=== PATIENT | male | born 1935 | race Caucasian/White ===

== ENCOUNTER 2017-11-07 20:19 | Inpatient (IN) | payer MEDICARE, OTHER, SELFPAY ==
[2017-11-07 20:43] VITALS: BP 193/80; PULSE 66; RESP 16; TEMP 36.7; O2SAT 98; BMI 25.5
[2017-11-07 20:47] VITALS: PULSE 66
--- NOTE | 2017-11-07 20:51 | DI.RAD.S_ITS ---
PROCEDURE: XR HIP W PEL IF DONE RT 2V INDICATIONS: fall pain TECHNIQUE: AP pelvis with lateral view(s) of the right hip(s). COMPARISON: None. FINDINGS: Bones: There is an angulated fracture of the right femoral neck. No other fractures or dislocations. Soft tissues: The visualized bowel gas pattern is normal. No suspicious soft tissue calcifications. Surgical clips are present throughout the pelvis. IMPRESSION: Healed right femoral neck fracture. Dictated by: Rosa Isela Murphy M.D. on 11/07/2017 at 21:16 Approved by: Rosa Isela Murphy M.D. on 11/07/2017 at 21:17
--- NOTE | 2017-11-07 20:53 | ED.LOWEXIN ---
HPI - Extremity Injury (Lower) General Chief Complaint: Extremity Injury, Lower Stated Complaint: FALL RT HIP PAIN Time Seen by Provider: 11/07/17 20:46 Source: patient and family Mode of arrival: wheelchair Limitations: no limitations History of Present Illness HPI Narrative: Patient is an 82-year-old male who presents with right hip pain. He twisted and fell landing on his right hip. He is not able to weightbear at all. Family was able to get him into the car. No other injuries. No numbness no tingling. MD complaint: hip injury Onset (ago): hour(s) Related Data Home Medications Medication Instructions Recorded Confirmed aspirin 1 tab PO DAILY 11/07/17 11/07/17 atorvastatin 1 tab PO DAILY 11/07/17 11/07/17 docusate calcium 1 cap PO DAILY 11/07/17 11/07/17 docusate calcium [Stool Softener] 1 cap PO QPM 11/07/17 11/07/17 levothyroxine 1 tab PO DAILY 11/07/17 11/07/17 losartan 1 tab PO DAILY 11/07/17 11/07/17 metoprolol tartrate 1.5 tab PO BID 11/07/17 11/07/17 pregabalin [Lyrica] 1 cap PO TID 11/07/17 11/07/17 Allergies Allergy/AdvReac Type Severity Reaction Status Date / Time No Known Drug Allergies Allergy Verified 11/07/17 20:47 Review of Systems Review of Systems All systems reviewed & are unremarkable except as noted in HPI and below Constitutional Denies chills, Denies fever(s), Denies lethargy and Denies weakness Cardiovascular Denies chest pain, Denies irregular heart rhythm, Denies lightheadedness, Denies palpitations, Denies dyspnea, Denies dyspnea on exertion and Denies orthopnea Respiratory Denies cough, Denies dyspnea, Denies dyspnea on exertion and Denies wheezing Gastrointestinal Gastrointestinal: Denies abdominal pain, Denies change in bowel habits, Denies diarrhea, Denies nausea and Denies vomiting Genitourinary Comments: History there cancer has urostomy Musculoskeletal Reports as per HPI Neurologic Denies weakness Endocrine Denies palpitations Allergic/Immunologic Denies wheezing PFSH Medical History Bladder cancer (Acute) Coronary artery disease (Acute) H/O thyroidectomy (Acute) Hypertension (Acute) Hyponatremia (Acute) Hypothyroid (Acute) Kidney stones (Acute) Prostate cancer (Acute) Thyroid cancer (Acute) Surgical History H/O colectomy (Acute) History of appendectomy (Acute) History of urostomy (Acute) Social History household members: family Smoking Status: Never smoker alcohol intake: never substance use type: does not use Exam Initial Vital Signs Initial Vital Signs: Vital Signs Temperature 98.1 F 11/07/17 20:43 Pulse Rate 66 11/07/17 20:43 Respiratory Rate 16 11/07/17 20:43 Blood Pressure 193/80 H 11/07/17 20:43 Pulse Oximetry 98 11/07/17 20:43 Const General: cooperative Nutritional Appearance: well nourished Orientation: alert, awake and oriented x3 Neck Neck: normal visual inspection and full ROM Chest Chest: normal inspection of the chest Resp Effort & Inspection: normal respiratory effort Auscultation: clear to auscultation bilaterally, no rales, no rhonchi and no wheezes GI Palpation: soft, No firm, No guarding and No tender Percussion: normal to percussion Other: Urostomy bag present. Clear urine. Skin General: no rashes or lesions noted, No ecchymosis and No erythema Neuro General: alert, awake, oriented x3 and CN's II-XI intact bilaterally Extrem Right lower extremity: hip/thigh Details: tenderness and abnormal ROM Details: pain with passive ROM during; no swelling and no deformity Course Orders Ordered: ED Orders 11/07/17 20:51 XR hip w pel if done RT 2V Stat 11/07/17 21:20 Basic Metabolic Panel Stat Complete Blood Count AUTO DIFF Stat 11/07/17 23:00 Consult to Orthopedic Surgery Routine Consult to Physician Routine 11/08/17 10:00 Basic Metabolic Panel Stat Sodium Chloride (Normal Saline 0.9%) 1,000 mls @ 100 mls/hr IV CONT FRED Morphine Sulfate (Morphine) 2 mg IV Q4HR PRN PRN Reason: Pain, Moderate (4-6) Ondansetron HCl (Zofran) 4 mg IV Q4HR PRN PRN Reason: Nausea And Vomiting Discontinued Medications Morphine Sulfate (Morphine) 2 mg IV NOW ONE Stop: 11/07/17 20:52 Last Admin: 11/07/17 21:25 Dose: 2 mg Morphine Sulfate (Morphine) 2 mg IV NOW ONE Stop: 11/07/17 22:37 Last Admin: 11/07/17 22:43 Dose: 2 mg Ondansetron HCl (Zofran) 4 mg IV NOW ONE Stop: 11/07/17 20:52 Last Admin: 11/07/17 21:26 Dose: 4 mg Consultations Consultation #1: Dr. Dumont reviewed x ray. Admit to medicine. Will go to OR tomorrow Time: 21:15 Consultation #2: Dr. Melgar updated on symptoms test results accepts admission. Agrees with all small amount of IV fluids and recheck electrolytes in a.m. Time: 22:20 Vital Signs - 8 hr 11/07/17 20:43 11/07/17 20:47 11/07/17 22:25 Temperature 98.1 F Pulse Rate 66 60 Pulse Rate [Right Dorsalis Pedis] 66 Respiratory Rate 16 18 Blood Pressure 193/80 H Blood Pressure [Left Arm] 175/72 H Pulse Oximetry 98 93 11/07/17 22:45 Temperature 98.1 F Pulse Rate 65 Pulse Rate [Right Dorsalis Pedis] Respiratory Rate 18 Blood Pressure 168/88 H Blood Pressure [Left Arm] Pulse Oximetry 92 MDM - Extremity Injury (Lower) Medical Records Attestation: I reviewed the patient's medical records. Lab Data Attestation: I reviewed the patient's lab results. Result diagrams: 11/07/17 21:20 11/07/17 21:20 Lab Results 11/07/17 11/07/17 Range/Units 21:20 21:20 WBC 6.6 (4.5-11.0) X10^3/uL RBC 4.28 L (4.5-5.9) X10^6/uL Hgb 12.5 L (13.5-17.5) g/dL Hct 37.1 L (41-53) % MCV 86.7 (80-100) fL MCH 29.2 (26-34) PG MCHC 33.7 (30-36) % RDW 13.5 (11.6-14.8) % Plt Count 188 (150-400) X10^3/uL Neut % (Auto) 73.4 (50-75) % Lymph % (Auto) 11.7 L (25-40) % [place] % (Auto) 10.5 (3-14) % Eos % (Auto) 3.6 (2-4) % Baso % (Auto) 0.8 (0-2) % Neut # (Auto) 4900 (2586-5602) /uL Sodium 123 L (137-145) mmol/L Potassium 4.0 (3.4-5.1) mmol/L Chloride 85 L (98-107) mmol/L Carbon Dioxide 36 H (22-32) mmol/L BUN 12 (9-20) mg/dL Creatinine 1.00 (0.66-1.25) mg/dL Estimated GFR > 60.0 (>60) mL/min BUN/Creatinine Ratio 12.0 (6-22) Glucose 113 H (80-110) mg/dL Calcium 8.8 (8.4-10.2) mg/dL Imaging Data right hip x ray: Attestation: I personally reviewed and interpreted this imaging study as follows: My impression: Acute right femoral neck fracture Radiologist's impression: PROCEDURE: XR HIP W PEL IF DONE RT 2V INDICATIONS: fall pain TECHNIQUE: AP pelvis with lateral view(s) of the right hip(s). COMPARISON: None. FINDINGS: Bones: There is an angulated fracture of the right femoral neck. No other fractures or dislocations. Soft tissues: The visualized bowel gas pattern is normal. No suspicious soft tissue calcifications. Surgical clips are present throughout the pelvis. IMPRESSION: Healed right femoral neck fracture. Dictated by: Rosa Isela Murphy M.D. on 11/07/2017 at 21:16 MDM Narrative Medical decision making narrative: I have reviewed patient's x-ray so has Orthopedics. This is more likely an acute fracture. Patient just fell and not weight-bearing and has pain. He is chronically hyponatremic slightly worse than he was in 2016. Discharge Plan Departure Patient Disposition: Admitted As Inpatient Clinical Impression: Closed fracture of right hip, Chronic hyponatremia Discharge Date/Time: 11/07/17 22:44 Interventions: ED Discharge Assessment Last Done: 11/07/17 22:44 Admit Date/Time: 11/07/17 22:29 Admit Provider: Kailee Melgar
[2017-11-07] MEDS: MORPHINE 2 MG/ML INJ IV ×2 (21:25→22:43)
[2017-11-07] MEDS: ONDANSETRON 4 MG/2 ML INJ IV (21:26)
[2017-11-07 21:37] LABS: Add Manual Diff / Slide Review NO; Basophils Percent Auto 0.8 % (0-2); Eosinophils Percent Auto 3.6 % (2-4); Hematocrit 37.1 % (41-53); Hemoglobin 12.5 g/dL (13.5-17.5); Lymphocytes Percent Auto 11.7 % (25-40); Mean Corpuscular HGB Conc 33.7 % (30-36); Mean Corpuscular Hemoglobin 29.2 PG (26-34); Mean Corpuscular Volume 86.7 fL (80-100); Monocytes Percent Auto 10.5 % (3-14); Neutrophils Absolute Auto 4900 /uL (3000-5900); Neutrophils Percent Auto 73.4 % (50-75); Platelet Count 188 X10^3/uL (150-400); Red Blood Cell Count 4.28 X10^6/uL (4.5-5.9); Red Cell Distribution Width 13.5 % (11.6-14.8); White Blood Cell Count 6.6 X10^3/uL (4.5-11.0)
[2017-11-07 21:45] LABS: Blood Urea Nitrogen 12 mg/dL (9-20); Calcium 8.8 mg/dL (8.4-10.2); Carbon Dioxide 36 mmol/L (22-32); Chloride 85 mmol/L (98-107); Estimated Glomerular Filt Rate > 60.0 mL/min (>60); Glucose 113 mg/dL (80-110); HEMOLYSIS < 15 (0-50); Sodium 123 mmol/L (137-145)
[2017-11-07 22:25] VITALS: BP 175/72; PULSE 60; RESP 18; O2SAT 93
[2017-11-07 22:45] VITALS: BP 168/88; PULSE 65; RESP 18; TEMP 36.7; O2SAT 92
[2017-11-07 22:55] VITALS: BMI 25.5
[2017-11-07 23:45] VITALS: BP 147/63; PULSE 67; RESP 18; TEMP 36.4; O2SAT 94
[2017-11-08] VITALS (18 sets, daily range): BP systolic 100–138; BP diastolic 54–74; PULSE 65–88; RESP 10–18; TEMP 36.6–38.1; O2SAT 90–99; BMI 25.5
--- NOTE | 2017-11-08 | DI.RAD.S_ITS ---
PROCEDURE: XR PELVIS 1-2V INDICATIONS: post op right audi TECHNIQUE: 1 view of the lower pelvis acquired. COMPARISON: [facility], CR, XR HIP W PEL IF DONE RT 2V, 11/07/2017, 20:32. FINDINGS: Bones: Patient is status post right hip unipolar arthroplasty, with hardware components in expected positions. The hip joint appears congruent. The visualized bony structures appear intact. Soft tissues: Overlying postoperative changes are noted. Surgical clips noted over the lower pelvis. No suspicious soft tissue densities. IMPRESSION: Spica postsurgical change for right hip arthroplasty. Dictated by: Ijeoma Palacios MD, PhD on 11/08/2017 at 13:34 Approved by: Ijeoma Palacios MD, PhD on 11/08/2017 at 13:35
[2017-11-08] MEDS: SODIUM CHLORIDE 0.9% 1,000 ML 100 ML IV (00:44)
--- NOTE | 2017-11-08 03:21 | PC.NURSE ---
Addendum entered by Teresa Torres R.N. 11/08/17 05:10: Correction: 2,000mL urine total for shift. Original Note: Addendum entered by Teresa Torres R.N. 11/08/17 05:07: Pt reporting no pain when not moving around. Does not want any pain meds at this time. Pts urostomy bag put put 1300mL for the shift of clear yellow urine. His bag should be emptied frequently since he puts out so much in a short period of time where the bag was extremely full Original Note: Pt is AxOx3, VSS. No complaints of pain at this time. IVF running as ordered. Pt kept NPO. Pt's urostomy site is clean, moist, and pink; drainage bag attached which urine is clear and yellow. Able to make needs known. Will continue to monitor
--- NOTE | 2017-11-08 09:59 | P.HP_ITS ---
History of Present Illness Chief complaint: FALL RT HIP PAIN Patient History Medical History Bladder cancer (Acute) Coronary artery disease (Acute) H/O thyroidectomy (Acute) Hypertension (Acute) Hyponatremia (Acute) Hypothyroid (Acute) Kidney stones (Acute) Prostate cancer (Acute) Thyroid cancer (Acute) Surgical History H/O colectomy (Acute) History of appendectomy (Acute) History of urostomy (Acute) Family & Social History Family History: Reviewed 11/08/17 by Derek Dumont MD Social History: household members family Prior Living Arrangements House Safety & Behavioral: Feels Safe in Current No Environment Been Physically Hurt or No Threatened By a Person Suicidal Ideation Description None Suicide Plan Description No Plan Tobacco & Substance use: Smoking Status Never smoker alcohol intake never Substance Use Type does not use Meds Home Medications Medication Instructions Recorded Confirmed Type aspirin 1 tab PO DAILY 11/07/17 11/07/17 History atorvastatin 1 tab PO DAILY 11/07/17 11/07/17 History docusate calcium 1 cap PO DAILY 11/07/17 11/07/17 History docusate calcium [Stool Softener] 1 cap PO QPM 11/07/17 11/07/17 History levothyroxine 1 tab PO DAILY 11/07/17 11/07/17 History losartan 1 tab PO DAILY 11/07/17 11/07/17 History metoprolol tartrate 1.5 tab PO BID 11/07/17 11/07/17 History pregabalin [Lyrica] 1 cap PO TID 11/07/17 11/07/17 History Allergies Allergy/AdvReac Type Severity Reaction Status Date / Time No Known Drug Allergies Allergy Verified 11/07/17 20:47 Review of Systems Genitourinary Comments: History of bladder cancer with cystectomy and urostomy bag. Exam Vital Signs (past 8 hours): - 11/08/17 05:10 11/08/17 08:11 Temperature 98.8 F 98.3 F Pulse Rate 88 85 Respiratory Rate 18 16 Blood Pressure 137/73 H 138/74 H Pulse Oximetry 96 90 L Oxygen Delivery Method Room Air Oxygen Flow Rate 0 Narrative Exam Narrative: Healthy-appearing elderly male alert orient conversant and in no obvious distress. HEENT normocephalic atraumatic. Lungs clear to auscultation. Heart regular rate and rhythm. Abdomen benign. Lower extremity is benign with the exception of pain with movement of the right lower extremity and tenderness over the greater trochanter. Sensation and circulation are intact distally Const General: healthy appearing and comfortable Nutritional Appearance: average body habitus Orientation: alert, awake and oriented x3 Objective Labs Result Diagrams: 11/07/17 21:20 11/07/17 21:20 Labs: Laboratory Results - last 24 hr 11/07/17 11/07/17 21:20 21:20 WBC 6.6 RBC 4.28 L Hgb 12.5 L Hct 37.1 L MCV 86.7 MCH 29.2 MCHC 33.7 RDW 13.5 Plt Count 188 Neut % (Auto) 73.4 Lymph % (Auto) 11.[address] [place] % (Auto) 10.5 Eos % (Auto) 3.6 Baso % (Auto) 0.8 Neut # (Auto) 4900 Sodium 123 L Potassium 4.0 Chloride 85 L Carbon Dioxide 36 H BUN 12 Creatinine 1.00 Estimated GFR > 60.0 BUN/Creatinine Ratio 12.0 Glucose 113 H Calcium 8.8 Assessment & Plan Plan: Assessment/Plan Narrative: Displaced right femoral neck fracture discussed the nature condition, treatment options risks and benefits. Patient understands and gives informed consent to proceed with surgical treatment consisting of endoprosthetic replacement of the right hip Quality VTE Deep Vein Thrombosis/Pulmonary Embolism Present on Admission: No
--- NOTE | 2017-11-08 10:00 | PM.PREOP ---
Pre-operative Note Interval Note Pre-op Check: Yes History & Physical Reviewed by Physician and Yes History & Physical exam performed today by Physician Changes: No
[2017-11-08] MEDS: MORPHINE 2 MG/ML INJ IV (10:02)
[2017-11-08 10:21] LABS: BUN Creatinine Ratio 13.3 (6-22); Blood Urea Nitrogen 12 mg/dL (9-20); Calcium 8.8 mg/dL (8.4-10.2); Carbon Dioxide 34 mmol/L (22-32); Chloride 92 mmol/L (98-107); Estimated Glomerular Filt Rate > 60.0 mL/min (>60); Glucose 104 mg/dL (80-110); HEMOLYSIS < 15 (0-50); Potassium 4.6 mmol/L (3.4-5.1); Sodium 130 mmol/L (137-145)
--- NOTE | 2017-11-08 10:25 | PM.HP.1 ---
History of Present Illness Date Patient Seen: 11/08/17 Time Patient Seen: 10:00 Chief complaint: FALL RT HIP PAIN Narrative: 82-year-old man who was brought to the [facility] Emergency room last night after a fall. He tripped on a step when he was trying to come up to the deck. He rolled and landed on his right hip. He was having right-sided hip pain. He was brought to the [facility] Emergency Room. X-ray of the right hip revealed angulated fracture of the right femoral neck. He was admitted to the medicine floor for right femoral neck fracture. Patient History Medical History Bladder cancer (Acute) Coronary artery disease (Acute) H/O thyroidectomy (Acute) Hypertension (Acute) Hyponatremia (Acute) Hypothyroid (Acute) Kidney stones (Acute) Prostate cancer (Acute) Thyroid cancer (Acute) Surgical History H/O colectomy (Acute) History of appendectomy (Acute) History of urostomy (Acute) Comment: Prostatectomy for prostate cancer Cystectomy for bladder cancer Family & Social History Family History: Reviewed 11/08/17 by Derek Dumont MD Social History: household members family Prior Living Arrangements House Safety & Behavioral: Feels Safe in Current No Environment Been Physically Hurt or No Threatened By a Person Suicidal Ideation Description None Suicide Plan Description No Plan Tobacco & Substance use: Smoking Status Never smoker alcohol intake never Substance Use Type does not use Comment: He is . He lives with his . Denies alcohol drinking or cigarette smoking. Meds Home Medications Medication Instructions Recorded Confirmed Type aspirin 1 tab PO DAILY 11/07/17 11/07/17 History atorvastatin 1 tab PO DAILY 11/07/17 11/07/17 History docusate calcium 1 cap PO DAILY 11/07/17 11/07/17 History docusate calcium [Stool Softener] 1 cap PO QPM 11/07/17 11/07/17 History levothyroxine 1 tab PO DAILY 11/07/17 11/07/17 History losartan 1 tab PO DAILY 11/07/17 11/07/17 History metoprolol tartrate 1.5 tab PO BID 11/07/17 11/07/17 History pregabalin [Lyrica] 1 cap PO TID 11/07/17 11/07/17 History Allergies Allergy/AdvReac Type Severity Reaction Status Date / Time No Known Drug Allergies Allergy Verified 11/07/17 20:47 Review of Systems Constitutional Comments: No fever chills or sweats Cardiovascular Comments: No chest pain or shortness of breath Respiratory Comments: Denies cough Gastrointestinal Comments: Denies abdominal pain Genitourinary Comments: No dysuria Musculoskeletal Musculoskeletal: Reports as per HPI Neurologic Comments: Denies headache or loss of consciousness Exam Vital Signs (past 8 hours): - 11/08/17 05:10 11/08/17 08:11 Temperature 98.8 F 98.3 F Pulse Rate 88 85 Respiratory Rate 18 16 Blood Pressure 137/73 H 138/74 H Pulse Oximetry 96 90 L Oxygen Delivery Method Room Air Oxygen Flow Rate 0 Narrative Exam Narrative: GENERAL: Well-appearing, well-nourished and in no acute distress. HEENT: Head normocephalic, atraumatic. Eyes pupils equal round NECK: Supple, no JVD, CHEST: Breath sounds equal bilaterally, no wheezes rales or rhonchi. CARDIAC: Regular rate and rhythm without murmurs, rubs or gallops. ABDOMEN: Soft, nontender. Normoactive bowel sounds all 4 quadrants. No guarding or rebound. EXTREMITIES: No pitting edema bilateral ankles. Right leg was slightly shorter than the left and is externally rotated. NEUROLOGICAL: Alert and oriented; Normal muscle strength. SKIN: Warm, dry, no petechiae, no rashes or lesions. Objective Imaging Hip x-ray: Radiologist's impression: There is an angulated fracture of the right femoral neck. No other fractures or dislocations. Labs Result Diagrams: 11/07/17 21:20 11/08/17 09:55 Labs: Laboratory Results - last 24 hr 11/07/17 11/07/17 11/08/17 21:20 21:20 09:55 WBC 6.6 RBC 4.28 L Hgb 12.5 L Hct 37.1 L MCV 86.7 MCH 29.2 MCHC 33.7 RDW 13.5 Plt Count 188 Neut % (Auto) 73.4 Lymph % (Auto) 11.7 L [place] % (Auto) 10.5 Eos % (Auto) 3.6 Baso % (Auto) 0.8 Neut # (Auto) 4900 Sodium 123 L 130 L Potassium 4.0 4.6 Chloride 85 L 92 L Carbon Dioxide 36 H 34 H BUN 12 12 Creatinine 1.00 0.90 Estimated GFR > 60.0 > 60.0 BUN/Creatinine Ratio 12.0 13.3 Glucose 113 H 104 Calcium 8.8 8.8 Assessment & Plan Plan: Assessment/Plan Narrative: 1. Right femoral neck fracture after a fall. Appreciate orthopedics consultation. Managed by orthopedic service. He is going to have surgical ORIF today. 2. History of coronary artery disease: No signs of acute exacerbation. Continue metoprolol 75 mg twice a day, losartan 50 mg once a day and baby aspirin daily 3. Hyperlipidemia: Continue atorvastatin 40 mg q.h.s. 4. Hypothyroidism: Continue Synthroid 125 mcg daily 5. Hypertension: Continue metoprolol and losartan per outpatient dosing Quality VTE Deep Vein Thrombosis/Pulmonary Embolism Present on Admission: No
[2017-11-08] MEDS: LACTATED RINGERS 1,000 ML 42 ML IV (10:35)
--- NOTE | 2017-11-08 10:58 | CM.DANOTE ---
DCP/Assessment: Reviewed chart. Patient is a 82yr old male admitted to [facility] after [facility]. Patient determined to have right hip fracture. Orthopedics/Dr. Dumont consulted and surgery scheduled for today 11-08-17. Primary payor is 1)Medicare 2)[employer]. PCP is SERGIO Hooper in [facility] Met with patient and spouse/Yael at bedside explained CM/SW role. Patient resting comfortably in bed prior to surgery. Patient and spouse confirm that patient completely I with all ADL's prior to fall. Patient hopes to go home when medically stable. Spouse reports that if HH needed she would like patient to have [facility]. She has used them in the past when she had knee replacement. Patient does not own walker. Spouse anticipates that he will need. Notified patient and spouse that CM team would follow closely after surgery to assist with d/c planning needs. Patient and spouse appreciative. Name and number of CM team left on white board in room. P: Anticipate home when medically stable. Patient having right hip surgery today. Patient hopeful that he will be up with therapy tomorrow. CM team to follow closely. JUAN Woods Discharge Planning/Care Management CM Discharge Assessment Start: 11/08/17 10:55 Freq: Status: Active Protocol: Document 11/08/17 10:56 KJS (Rec: 11/08/17 10:58 KJS [id number]) Discharge Planning Assessment Assigned Rail Filler JUAN/Kaela History Provided By Patient Family Member Has Patient been admitted in last 30 No days? Prior Living Arrangements House Household Members family Type of transporation used prior to Drives own vehicle admit Independent with ADL's Yes Is patient alert and oriented? Yes Caregiver for Another No DME Already Rented / Owned Crutches Discharge Plan Home with Home Health Transportation Arrangement Spouse and/or family to provide transport home. If patient plan is home with home health Possible HH with [facility] : Has signed face to face form been completed? Review Status In Process Next Review Type Continued Stay Review
[2017-11-08] MEDS: CEFAZOLIN 2 GM/100 ML FROZ.PIGGY IV ×2 (11:15→20:28)
--- NOTE | 2017-11-08 11:47 | SUR.OPER ---
Lateral on padded OR bed. Gel axillary roll. Arms secured on padded armboard with pillow supporting top arm. Padded hip positioner braces x4 - anterior and posterior chest and pelvis. Additional gel pad used anterior pelvis. Gel pad under bottom leg from knee to foot and secured with tape over sheet.
--- NOTE | 2017-11-08 12:54 | PM.OP.1 ---
Operative Date/Time/Diagnoses Date of procedure: 11/08/17 Time of procedure: 12:54 Pre-op diagnosis: Displaced right subcapital femoral neck fracture Post-op diagnosis: same Procedure & Clinicians Procedure: Right hip endoprosthetic replacement for femoral neck fracture (CPT code 96422) Same procedure as scheduled: Yes Indications: Patient is an 82-year-old male with displaced right femoral neck fracture status post fall. The patient has pain with weight-bearing and any movement of the hip and x-rays demonstrate a varus displaced femoral neck fracture. We have discussed the nature of condition, treatment options, risks and benefits, and patient elects to proceed with total hip arthroplasty and gives informed consent. Surgeon: Derek Dumont Click Yes if Unassisted: Yes Anesthesia Type: General Operative Notes Closure Type: primary Specimen(s): none sent Implants & Drains: Femoral component: Lepe [employer] Nephew Synergy stem size 17 with standard offset Femoral head: 54 mm Estimated Blood Loss (mL): 50 Blood products transfused: none Procedure in detail: After satisfaction induction of anesthetic, and administration of IV antibiotics, the patient was positioned in the lateral decubitus position with all bony prominences well padded and pelvic position secured using a hip motivational speaker positioning device. Right hip and lower extremity prepped and draped in the usual sterile fashion, then a longitudinal incision was created centered over the greater trochanter and carried sharply through the skin and subcutaneous tissues down to the fascia leah which was divided longitudinally and retracted with a Charnley retractor. External rotators visualize, cut, tagged, and retracted posteriorly, then the capsule was cut in a T-type fashion with the corners tagged and retracted. Highly comminuted and displaced femoral neck fracture with associated hematoma was noted, the femur was rotated then femoral neck cut made according to preoperative templating. Acetabulum was irrigated and examined and had minimal degenerative changes. Soft tissue then removed off the lateral femoral neck in the lateral neck was entered using a box osteotome. T-handled reamers placed down the canal followed by sequential broaching to 17, with a solid and snug fit with the broach. A permanent size 17 Lepe [employer] Nephew Synergy stem was selected and inserted with excellent position and fixation achieved. A size 54 mm unipolar ball with the +0 collar was then placed on femoral component and impacted into position. The hip was reduced and excellent leg length range of motion and stability were achieved. The hip was copiously irrigated, and the capsule repaired with #2 Ethibond, and the piriformis was repaired back to the greater trochanter with the same. Fascia leah closed with interrupted #1 Ethibond sutures, and the subcutaneous tissues were closed in 2 layers of 0 Vicryl and 2 0 Vicryl. Skin was closed with vijaya and sterile dressings applied. The anesthetic was terminated, and the patient taken to postanesthetic recovery in satisfactory condition. Complications: none Condition: stable Disposition: PACU Plan for aftercare: Patient will be admitted to the acute care [facility], and anticipate discharge on postop day 2 or 3 with follow-up in office in 10-14 days. Outpatient physical therapy will be arranged and patient will continue to observe posterior hip precautions. Patient will continue use of postoperative Lovenox for 10 days postop.
[2017-11-08] MEDS: LACTATED RINGERS 1,000 ML 125 ML IV ×2 (14:24→23:43)
--- NOTE | 2017-11-08 14:45 | PC.NURSE ---
PT ARRIVED FROM SURGERY AT APPROX 1330. A/OX3. VSS. O2 SATS 93-95% 2L NC. DENIES SOB. DENIES PAIN. PPP. ABLE TO WIGGLE TOES. DENIES NUMBESS. DRSG C/D/I. SUPINE POSITION WITH PILLOW BETWEEN LEGS. ADVISED PT OF POST HIP PRECAUTIONS. IVF INFUSING PER ORDERS. SOUP, PUDDING AND JUICE PROVIDED. PT DENIES NAUSEA. CALL LIGHT WITHIN REACH. SUPPORTIVE FAMILY AT BEDSIDE.
[2017-11-08] MEDS: ASPIRIN EC 81 MG TABLET PO (20:27)
[2017-11-08] MEDS: HYDROCODONE/ACET 5/325 TABLET 1 TAB PO (20:28)
--- NOTE | 2017-11-09 | DI.RAD.S_ITS ---
PROCEDURE: XR CHEST 1V INDICATIONS: bilateral basilar crackles. Eval for CHF vs fibrosis TECHNIQUE: One view of the chest was acquired. COMPARISON: [facility], , CHEST 1 VIEW, 01/12/2014, 13:56. FINDINGS: Surgical changes and devices: Clips are present overlying the soft tissues of the neck. Lungs and pleura: No pleural effusions or pneumothorax. Chronic interstitial changes are present. Mediastinum: Mediastinal contours appear normal. Heart size is normal. Bones and chest wall: No suspicious bony lesions. Overlying soft tissues appear unremarkable. IMPRESSION: No acute pulmonary process. Dictated by: Marlena Soto M.D. on 11/09/2017 at 18:36 Approved by: Marlena Soto M.D. on 11/09/2017 at 18:37
[2017-11-09] MEDS: CEFAZOLIN 2 GM/100 ML FROZ.PIGGY IV (02:51)
[2017-11-09 05:36] LABS: Hematocrit 32.4 % (41-53)
[2017-11-09 05:49] VITALS: BP 131/61; PULSE 65; RESP 16; TEMP 36.8; O2SAT 94
[2017-11-09] MEDS: HYDROCODONE/ACET 5/325 TABLET 1 TAB PO ×4 (05:51→20:26)
[2017-11-09 07:00] VITALS: BP 128/58; PULSE 74; RESP 17; TEMP 36.8; O2SAT 93
[2017-11-09] MEDS: PREGABALIN 75 MG CAPSULE 150 MG PO ×3 (09:48→20:18)
[2017-11-09] MEDS: ASPIRIN EC 81 MG TABLET PO ×2 (09:50→20:18)
[2017-11-09] MEDS: ENOXAPARIN 30 MG/0.3 ML SYRINGE SUBCUT (09:51)
[2017-11-09 10:59] VITALS: BP 130/65; PULSE 80; RESP 17; TEMP 37; O2SAT 91
--- NOTE | 2017-11-09 11:06 | PC.NURSE ---
AM Shift-Pain control Pt receiving [place] for pain control, 1 tab, ineffective for pain with increased attempts to Mobilize w/ PT. Call into Dr Dumont office.
[2017-11-09 11:25] LABS: Alanine Aminotransferase 19 IU/L (21-72); Albumin Globulin Ratio 1.2 (1.0-2.8); Alkaline Phosphatase 44 U/L (38-126); Aspartate Aminotransferase 69 IU/L (17-59); Bilirubin Total 0.4 mg/dL (0.2-1.3); Blood Urea Nitrogen 20 mg/dL (9-20); Calcium 8.6 mg/dL (8.4-10.2); Carbon Dioxide 33 mmol/L (22-32); Chloride 94 mmol/L (98-107); Estimated Glomerular Filt Rate > 60.0 mL/min (>60); Globulin 2.6 g/dL (1.7-4.1); Glucose 116 mg/dL (80-110); HEMOLYSIS < 15 (0-50); Potassium 4.8 mmol/L (3.4-5.1); Sodium 130 mmol/L (137-145); Total Protein 5.6 g/dL (6.3-8.2)
[2017-11-09] MEDS: DOCUSATE 100 MG CAPSULE PO (12:54)
--- NOTE | 2017-11-09 14:50 | PT.IIE ---
Current Diagnoses Fracture of unspecified part of neck of right femur, initial encounter for closed fracture (11/07/17) Surgery Performed Operation Date: 11/08/17 11:00 Actual Procedures p Hip Hemiarthroplasty(Right) - Derek Dumont MD Surgical History (Last Reviewed 11/08/17 @ 10:28 by Kailee Melgar MD) H/O colectomy (Acute) History of appendectomy (Acute) History of urostomy (Acute) Medical History (Last Reviewed 11/08/17 @ 10:28 by Kailee Melgar MD) Bladder cancer (Acute) Coronary artery disease (Acute) H/O thyroidectomy (Acute) Hypertension (Acute) Hyponatremia (Acute) Hypothyroid (Acute) Kidney stones (Acute) Prostate cancer (Acute) Thyroid cancer (Acute) Physical Therapy Inpatient Evaluation/Re-Eval M1 PT/OT-IP Prior Functional Status Start: 11/09/17 15:54 Freq: NEEDED Status: Active Protocol: Document 11/09/17 14:50 MDD (Rec: 11/09/17 16:13 MDD [id number]) Medical Review Prior Functional Status Medical History Reviewed Yes Communication nml Mobility and Gait independent with no AD Activities of Daily Living and IADL's independent Social History Household Members spouse family Living Arrangements House Number of Floors (Floors) One Floor Number of Stairs To Enter/Railing? 4 steps to enter, B railings ( narrow, can reach both at same time). Home Environment Standard Height Toilet Walk in Shower Home Equipment Crutches Employment Status Retired Additional Social History Comment Pt lives with his Yael. Yael reports he has had multiple falls in the last year, falling twice on the steps. Pt wears gloves at all times due to poor circulation from Cx treatment many years ago. M2 PT-IP Current Condition Start: 11/09/17 15:54 Freq: NEEDED Status: Active Protocol: Document 11/09/17 14:50 MDD (Rec: 11/09/17 16:13 MDD [id number]) Physical Therapy Current Condition Current Condition Evaluation Date 11/09/17 Treatment Diagnosis s/p R hip fx Onset Date 11/08/17 Precautions Posterior Hip Precautions No Hip Flexion > 90 degrees No Hip Internal Rotation No Hip Adduction Weight Bearing Status Weight Bearing Status Weight Bear as Tolerated M3 PT-IP Subjective Start: 11/09/17 15:54 Freq: NEEDED Status: Active Protocol: Document 11/09/17 14:50 MDD (Rec: 11/09/17 16:13 MDD [id number]) Subjective Physical Therapy Visit Type Type Initial Evaluation Visit Start Time 11:40 Visit Stop Time 14:50 Total Visit Minutes 63 Notes Left room to allow patient to eat from 11:58 to 14:05 Number of AUTOMATIC FAB[employer] C[employer]TER Visits 0 Physical Therapy Visit Comments Patient Comments Pt agreeable to working with therapy, but nervous about pain in R hip. Therapy Pain Assessment Pain When Pain Assessed At Rest Pain Present Pain Present Pain Reported Location Right Hip Intensity 4 Scale Used Numeric (1 - 10) Description Aching Sharp Pain Management Techniques Timing of Activity with Medications M4 PT-IP Mobility and Gait Start: 11/09/17 15:54 Freq: NEEDED Status: Active Protocol: Document 11/09/17 14:50 MDD (Rec: 11/09/17 16:13 MDD [id number]) PT-Bed Mobility Assessment Supine to Sit Supine to Sit Moderate Assistance Head of Bed Elevated Bedrails Sit to Supine Sit to Supine Moderate Assistance Scooting Scooting to Edge of Bed Moderate Assistance Scooting Up and Down in Bed Maximum Assistance PT-Transfer Assessment Sit to and From Stand Sit to and from Stand Moderate Assistance Equipment Transfer Assistive Device Gait Belt Front Wheeled Walker Gait Assessment Gait Gait Assistance Required: Minimum Assistance Distance (Feet) (feet) 2 Able to Maintain Weight Bearing Status Yes During Gait Assistive Devices Assistive Device Gait Belt Front Wheeled Walker Gait Deviations General Gait Pattern Antalgic Decreased Stride Length Step-to Gait Comments Gait Comments Pt took 2 steps to scoot himself up in bed. Very antalgic with increased reliance on UE's. PT-Balance Assessment Sitting Balance and Reactions Static Sitting Balance Ability Good Dynamic Sitting Balance Ability Fair Standing Balance and Reactions Static Standing Balance Ability Good M5 PT-IP Objective Assessments Start: 11/09/17 15:54 Freq: NEEDED Status: Active Protocol: Document 11/09/17 14:50 MDD (Rec: 11/09/17 16:13 MDD [id number]) Orientation Orientation/Cognition Level of Alertness Alert Orientation Name Age Place Situation Language Function Ability No Deficits Noted Safety Awareness Understands Safety Issues Memory Description No Deficits Noted Gross Range of Motion Lower Extremity ROM Assessment Within Functional Limits Strength Lower Extremity Strength Assessment Within Functional Limits Sensation Assessment Sensation Gross Sensation WNL M6 PT-IP Treatment Start: 11/09/17 15:54 Freq: NEEDED Status: Active Protocol: Document 11/09/17 14:50 MDD (Rec: 11/09/17 16:13 MDD [id number]) Physical Therapy Treatment Education Education Provided Precautions Weight Bearing Status Post-Op Packet Safety Other Treatments Other Treatment Performed Pt performed 3 sit to stands, varying from 1 minute to 3 minutes standing. Heavy reliance on UE's. M7 PT-IP Assessment and Plan Start: 11/09/17 15:54 Freq: NEEDED Status: Active Protocol: Document 11/09/17 14:50 MDD (Rec: 11/09/17 16:13 MDD [id number]) PT Summary Assessment and Plan Potential Rehabilitation Potential Good Status of Condition at Evaluation Stable Summary Impairments Pain Strength Balance Bed Mobility Transfers Gait Activity Tolerance Progress Towards Goals Slow Progress due to Pain Assessment Summary Pt required mod A for all bed mobility and sit to stands today. He was unable to perform any functional gait due to pain in R hip. Will benefit from continued inpatient rehab to maximize function as he was independent prior to his fall. Goals Bed Mobility Goal Standby Assistance Transfer Goal Standby Assistance Gait Goal Standby Assistance Gait Distance 100 Other Goals Ascend/descend 4 steps with B railings. Days to Meet Goals 3 Frequency of Treatment Frequency Of Treatment Twice a Day Treatment Plan Physical Therapy Treatment Plan Bed Mobility Training Transfer Training Gait Training Therapeutic Exercise Post Op Education Recommendations To Nursing Amount of Assist Needed 2 Person Assist Discharge Recommendations PT Discharge Recommendations SNF Rehab Equipment Needed for Home Before FWW - plans on getting Discharge one from the [facility]
[2017-11-09 15:20] LABS: TSH w/ Reflex to FT4 1.11 uIU/mL (0.47-4.68)
--- NOTE | 2017-11-09 15:54 | PM.PN.1 ---
Subjective Date Patient Seen: 11/09/17 Time Patient Seen: 15:54 Interval history: This is a follow-up visit on patient Exam Vital Signs (past 8 hours): - 11/09/17 10:59 Temperature 98.6 F Pulse Rate 80 Respiratory Rate 17 Blood Pressure 130/65 H Pulse Oximetry 91 Oxygen Delivery Method Room Air Oxygen Flow Rate 0 Objective Labs Result Diagrams: 11/09/17 05:26 11/09/17 Unknown Labs: Laboratory Results - last 24 hr 11/09/17 11/09/17 11/09/17 05:26 Unknown Unknown Hgb 11.0 L Hct 32.4 L Sodium 130 L Potassium 4.8 Chloride 94 L Carbon Dioxide 33 H BUN 20 Creatinine 1.00 Estimated GFR > 60.0 BUN/Creatinine Ratio 20.0 Glucose 116 H Calcium 8.6 Total Bilirubin 0.4 AST 69 H ALT 19 L Alkaline Phosphatase 44 Total Protein 5.6 L Albumin 3.0 L Globulin 2.6 Albumin/Globulin Ratio 1.2 TSH 1.11 Assessment & Plan Plan: Assessment/Plan Narrative: 1. Right femoral neck fracture after a fall. s/p OR/IF November 08. POD #1 today. Patient notes the pain is tolerable. 2. History of coronary artery disease: Continue metoprolol 75 mg bid, losartan 50 mg once qd and 81 mg aspirin daily 3. Hyperlipidemia: Continue atorvastatin 40 mg q.h.s. 4. Hypothyroidism: Continue Synthroid 125 mcg daily 5. Hypertension: Continue metoprolol and losartan per outpatient dosing 6. Hyponatremia sodium level today is 130 prior recent serum sodium level was 123 potential causes of hyponatremia include hypothyroidism requested TSH and reflex T4 to investigate further will also order a urine sodium and urine osmolality if patient is appropriately handling the hyponatremia the urine sodium concentration should be less than 20. 7. Respiratory crackles noted on auscultation bilateral. Patient notes smoking history many years ago patient is unaware of any history of COPD or emphysema. No history of pulmonary fibrosis will obtain BNP and PA/LAT CXR Quality VTE Deep Vein Thrombosis/Pulmonary Embolism Present on Admission: No
[2017-11-09 16:12] VITALS: BP 140/72; PULSE 87; RESP 19; TEMP 37.2; O2SAT 95
--- NOTE | 2017-11-09 17:00 | PM.PN.1 ---
Subjective Date Patient Seen: 11/09/17 Time Patient Seen: 13:08 Interval history: History of present illness Follow-up on patient with right femoral neck fracture secondary to ground level fall patient is postop day 1. After open reduction internal fixation surgical procedure patient also noted to have hyponatremia with prior history of hyponatremia as well. Review of systems Patient notes that the pain in his leg is tolerable and addressed effectively with the analgesic therapy provided denies having any chest pain or shortness of breath. No nausea Exam Vital Signs (past 8 hours): - 11/09/17 10:59 11/09/17 16:12 Temperature 98.6 F 98.9 F Pulse Rate 80 87 Respiratory Rate 17 19 Blood Pressure 130/65 H 140/72 H Pulse Oximetry 91 95 Oxygen Delivery Method Room Air Oxygen Flow Rate 0 Const General: cooperative, healthy appearing, comfortable, well developed and well hydrated Nutritional Appearance: average body habitus and well nourished Orientation: alert, awake and oriented x3 Resp Effort & Inspection: normal respiratory effort, able to speak in complete sentences and symmetric chest movement Auscultation: no bronchial breath sounds, crackles and no wheezes Cardio Palpation: normal PMI Rate: regular rate Rhythm: regular rhythm Heart Sounds: S1 normal and S2 normal Pulses: radial pulses present GI Inspection: normal to inspection Palpation: No pulsatile mass, No tender and No ascites Auscultation: normal bowel sounds Skin General: warm Lesions: no lesions Psych Appearance: grossly normal Mental Status: mental status grossly normal Speech and Movement: speech and movement normal Mood: congruent mood Affect: normal affect Attitude: cooperative Thought Process: normal Objective Labs Result Diagrams: 11/09/17 05:26 11/09/17 Unknown Labs: Laboratory Results - last 24 hr 11/09/17 11/09/17 11/09/17 05:26 Unknown Unknown Hgb 11.0 L Hct 32.4 L Sodium 130 L Potassium 4.8 Chloride 94 L Carbon Dioxide 33 H BUN 20 Creatinine 1.00 Estimated GFR > 60.0 BUN/Creatinine Ratio 20.0 Glucose 116 H Calcium 8.6 Total Bilirubin 0.4 AST 69 H ALT 19 L Alkaline Phosphatase 44 Total Protein 5.6 L Albumin 3.0 L Globulin 2.6 Albumin/Globulin Ratio 1.2 TSH 1.11 Assessment & Plan Plan: Assessment/Plan Narrative: 1. Right femoral neck fracture after a fall. s/p OR/IF November 08. POD #1 today. Patient notes the pain is tolerable. 2. History of coronary artery disease: Continue metoprolol 75 mg bid, losartan 50 mg once qd and 81 mg aspirin daily 3. Hyperlipidemia: Continue atorvastatin 40 mg q.h.s. 4. Hypothyroidism: Continue Synthroid 125 mcg daily 5. Hypertension: Continue metoprolol and losartan per outpatient dosing 6. Hyponatremia sodium level today is 130 prior recent serum sodium level was 123 potential causes of hyponatremia include hypothyroidism requested TSH and reflex T4 to investigate further will also order a urine sodium and urine osmolality if patient is appropriately handling the hyponatremia the urine sodium concentration should be less than 20. 7. Respiratory crackles noted on auscultation bilateral. Patient notes smoking history many years ago patient is unaware of any history of COPD or emphysema. No history of pulmonary fibrosis will obtain BNP and PA/LAT CXR Quality VTE Deep Vein Thrombosis/Pulmonary Embolism Present on Admission: Yes
[2017-11-09 19:32] LABS: B Type Natriuretic Peptide < 100.0 (<100)
[2017-11-09 20:09] VITALS: BP 149/83; PULSE 95; RESP 18; TEMP 37; O2SAT 93
[2017-11-09] MEDS: DOCUSATE 250 MG CAPSULE PO (20:18)
[2017-11-09] MEDS: hydrOXYzine pamoate 25 MG CAPSULE 50 MG PO (20:19)
[2017-11-09 23:50] VITALS: BP 111/55; PULSE 99; RESP 20; TEMP 37.9; O2SAT 95
[2017-11-10] VITALS (8 sets, daily range): BP systolic 98–144; BP diastolic 55–70; PULSE 85–103; RESP 16–20; TEMP 36.7–38.2; O2SAT 91–99
[2017-11-10] MEDS: HYDROCODONE/ACET 5/325 TABLET 1 TAB PO ×3 (01:11→14:34)
[2017-11-10] MEDS: hydrOXYzine pamoate 25 MG CAPSULE 50 MG PO (02:55)
--- NOTE | 2017-11-10 04:49 | PC.NURSE ---
shift note Pt is AOx3. Pleasant/ cooperative. crackles heard throughout left lobe. temp 100.4 at shift start. Elevated to 100.7. Provided 1 tab vicoden for pain and fever. Encouraged pt to use IS. Fever 100.8 at 4am vitals. Pain in right hip/ buttock reported. Provided visatril and ice. Pt presently asleep. Urostomy/ gomez draining clear yellow/ green. Call light in hand.
[2017-11-10 05:42] LABS: Add Manual Diff / Slide Review NO; Basophils Percent Auto 0.4 % (0-2); Eosinophils Percent Auto 0.8 % (2-4); Hematocrit 30.2 % (41-53); Hemoglobin 10.1 g/dL (13.5-17.5); Mean Corpuscular HGB Conc 33.6 % (30-36); Mean Corpuscular Hemoglobin 29.2 PG (26-34); Mean Corpuscular Volume 86.9 fL (80-100); Monocytes Percent Auto 13.7 % (3-14); Neutrophils Absolute Auto 10300 /uL (3000-5900); Neutrophils Percent Auto 76.1 % (50-75); Platelet Count 150 X10^3/uL (150-400); Red Blood Cell Count 3.47 X10^6/uL (4.5-5.9); Red Cell Distribution Width 13.9 % (11.6-14.8); White Blood Cell Count 13.5 X10^3/uL (4.5-11.0)
[2017-11-10 05:54] LABS: Alanine Aminotransferase 24 IU/L (21-72); Albumin 2.8 g/dL (3.5-5.0); Albumin Globulin Ratio 1.1 (1.0-2.8); Alkaline Phosphatase 40 U/L (38-126); Aspartate Aminotransferase 44 IU/L (17-59); Bilirubin Total 0.7 mg/dL (0.2-1.3); Blood Urea Nitrogen 18 mg/dL (9-20); Calcium 7.9 mg/dL (8.4-10.2); Carbon Dioxide 29 mmol/L (22-32); Chloride 93 mmol/L (98-107); Estimated Glomerular Filt Rate > 60.0 mL/min (>60); Globulin 2.5 g/dL (1.7-4.1); Glucose 110 mg/dL (80-110); HEMOLYSIS < 15 (0-50); Potassium 4.1 mmol/L (3.4-5.1); Sodium 127 mmol/L (137-145); Total Protein 5.3 g/dL (6.3-8.2)
--- NOTE | 2017-11-10 08:14 | P.PN_ITS ---
Subjective Date Patient Seen: 11/10/17 Time Patient Seen: 08:14 Interval history: POD #2 status post right hip endoprosthetic replacement for femoral neck fracture with Dr. Dumont. There seemed to be a computer issue with patient being on our service yesterday. Patient is not having any pain. He has been mobilizing very slowly with physical therapy, he has been sitting on the edge of his bed but has not ambulated around his room. He knows his posterior hip precautions. He has a Hicks in place. He states he would like to discharge home but there has been discussion of intermediate facility for further care. Exam Vital Signs (past 8 hours): - 11/10/17 01:33 11/10/17 04:16 11/10/17 05:36 Temperature 100.7 F H 100.8 F H 99.2 F Pulse Rate 89 Respiratory Rate 16 Blood Pressure 104/57 L Pulse Oximetry 99 Oxygen Delivery Method Room Air Oxygen Flow Rate 0 Narrative Exam Narrative: Patient is sitting up in bed in no acute distress. Is alert and oriented x3. Dressing on right hip is CDI. Hicks catheter in place. He is able to actively dorsiflex and plantar flex. Sensation intact to light touch throughout bilateral lower extremities. Calves are soft, compressible, and nontender bilaterally. Objective Labs Result Diagrams: 11/10/17 05:20 11/10/17 05:20 Labs: Laboratory Results - last 24 hr 11/09/17 11/09/17 11/09/17 05:26 Unknown Unknown WBC RBC Hgb Hct MCV MCH MCHC RDW Plt Count Neut % (Auto) Lymph % (Auto) [place] % (Auto) Eos % (Auto) Baso % (Auto) Neut # (Auto) Sodium 130 L Potassium 4.8 Chloride 94 L Carbon Dioxide 33 H BUN 20 Creatinine 1.00 Estimated GFR > 60.0 BUN/Creatinine Ratio 20.0 Glucose 116 H Calcium 8.6 Total Bilirubin 0.4 AST 69 H ALT 19 L Alkaline Phosphatase 44 B-Natriuretic Peptide < 100.0 Total Protein 5.6 L Albumin 3.0 L Globulin 2.6 Albumin/Globulin Ratio 1.2 TSH 1.11 11/10/17 11/10/17 05:20 05:20 WBC 13.5 H RBC 3.47 L Hgb 10.1 L Hct 30.2 L MCV 86.9 MCH 29.2 MCHC 33.6 RDW 13.9 Plt Count 150 Neut % (Auto) 76.1 H Lymph % (Auto) 9.0 L [place]ule[place] % (Auto) 13.7 Eos % (Auto) 0.8 L Baso % (Auto) 0.4 Neut # (Auto) 06053 H Sodium 127 L Potassium 4.1 Chloride 93 L Carbon Dioxide 29 BUN 18 Creatinine 0.90 Estimated GFR > 60.0 BUN/Creatinine Ratio 20.0 Glucose 110 Calcium 7.9 L Total Bilirubin 0.7 AST 44 ALT 24 Alkaline Phosphatase 40 B-Natriuretic Peptide Total Protein 5.3 L Albumin 2.8 L Globulin 2.5 Albumin/Globulin Ratio 1.1 TSH Assessment & Plan Post-op (1) Closed fracture of right hip: Qualifiers: Encounter type: initial encounter Fracture healing: Qualified Code(s) : S72.001A - Fracture of unspecified part of neck of right femur, initial encounter for closed fracture Current Visit: Yes Status: Acute (2) Chronic hyponatremia: Current Visit: Yes Status: Acute Postoperative Procedures Operation Date: 11/08/17 11:00 Actual Procedures Side Surgeon p Hip Hemiarthroplasty Right Derek Dumont MD POD #2 status post right hip endoprosthetic replacement for femoral neck fracture with Dr. Dumont. Continue current pain management. Continue Lovenox for VTE prophylaxis. Patient is being managed by hospitalist service. He has been slow to ambulate, we will continue to work with physical therapy, continue posterior hip precautions. He will follow up in our office in 10-14 days. Discharge Plan once medically stable by hospitalist service, possible intermediate facility versus home health services at time of discharge. Time Spent With Patient less than 15 minutes Quality VTE Deep Vein Thrombosis/Pulmonary Embolism Present on Admission: Yes
[2017-11-10] MEDS: SODIUM CHLORIDE 0.9% FLUSH 10 ML IV ×2 (09:59→20:55)
[2017-11-10] MEDS: PREGABALIN 75 MG CAPSULE 150 MG PO ×3 (09:59→20:54)
[2017-11-10] MEDS: DOCUSATE 100 MG CAPSULE PO (09:59)
[2017-11-10] MEDS: ASPIRIN EC 81 MG TABLET PO ×2 (09:59→20:54)
[2017-11-10] MEDS: ENOXAPARIN 30 MG/0.3 ML SYRINGE SUBCUT (10:00)
--- NOTE | 2017-11-10 11:30 | PT.IPTN ---
Current Diagnoses Hypo-osmolality and hyponatremia (11/07/17) Fracture of unspecified part of neck of right femur, initial encounter for closed fracture (11/07/17) Surgery Performed Operation Date: 11/08/17 11:00 Actual Procedures p Hip Hemiarthroplasty(Right) - Derek Dumont MD Physical Therapy Treatment Note M2 PT-IP Current Condition Start: 11/09/17 15:54 Freq: NEEDED Status: Active Protocol: Document 11/09/17 14:50 MDD (Rec: 11/09/17 16:13 MDD [id number]) Physical Therapy Current Condition Current Condition Evaluation Date 11/09/17 Treatment Diagnosis s/p R hip fx Onset Date 11/08/17 Precautions Posterior Hip Precautions No Hip Flexion > 90 degrees No Hip Internal Rotation No Hip Adduction Weight Bearing Status Weight Bearing Status Weight Bear as Tolerated M3 PT-IP Subjective Start: 11/09/17 15:54 Freq: NEEDED Status: Active Protocol: Document 11/10/17 11:30 MDD (Rec: 11/10/17 12:49 MDD [id number]) Subjective Physical Therapy Visit Type Type Treatment Note Visit Start Time 10:47 Visit Stop Time 11:30 Total Visit Minutes 43 Number of REPAIR SPECIALIST Visits 0 Physical Therapy Visit Comments Patient Comments Pt agreeable to working with therapy this day. States he would like to go home, but acknowledges that a rehab facility may be a better choice. Therapy Pain Assessment Pain When Pain Assessed At Rest Location Right Hip Intensity 5 Scale Used Numeric (1 - 10) Description Aching Pain Management Techniques Timing of Activity with Medications M4 PT-IP Mobility and Gait Start: 11/09/17 15:54 Freq: NEEDED Status: Active Protocol: Document 11/09/17 14:50 MDD (Rec: 11/09/17 16:13 MDD [id number]) PT-Bed Mobility Assessment Supine to Sit Supine to Sit Moderate Assistance Head of Bed Elevated Bedrails Sit to Supine Sit to Supine Moderate Assistance Scooting Scooting to Edge of Bed Moderate Assistance Scooting Up and Down in Bed Maximum Assistance PT-Transfer Assessment Sit to and From Stand Sit to and from Stand Moderate Assistance Equipment Transfer Assistive Device Gait Belt Front Wheeled Walker Gait Assessment Gait Gait Assistance Required: Minimum Assistance Distance (Feet) (feet) 2 Able to Maintain Weight Bearing Status Yes During Gait Assistive Devices Assistive Device Gait Belt Front Wheeled Walker Gait Deviations General Gait Pattern Antalgic Decreased Stride Length Step-to Gait Comments Gait Comments Pt took 2 steps to scoot himself up in bed. Very antalgic with increased reliance on UE's. PT-Balance Assessment Sitting Balance and Reactions Static Sitting Balance Ability Good Dynamic Sitting Balance Ability Fair Standing Balance and Reactions Static Standing Balance Ability Good M5 PT-IP Objective Assessments Start: 11/09/17 15:54 Freq: NEEDED Status: Active Protocol: Document 11/09/17 14:50 MDD (Rec: 11/09/17 16:13 MDD [id number]) Orientation Orientation/Cognition Level of Alertness Alert Orientation Name Age Place Situation Language Function Ability No Deficits Noted Safety Awareness Understands Safety Issues Memory Description No Deficits Noted Gross Range of Motion Lower Extremity ROM Assessment Within Functional Limits Strength Lower Extremity Strength Assessment Within Functional Limits Sensation Assessment Sensation Gross Sensation WNL M6 PT-IP Treatment Start: 11/09/17 15:54 Freq: NEEDED Status: Active Protocol: Document 11/10/17 11:30 MDD (Rec: 11/10/17 12:49 MDD [id number]) Physical Therapy Treatment Education Education Provided Precautions Safety Other Treatments Other Treatment Performed Bed mobility: mod A for log roll to R (pillow between knees), cues for hand placement and assist to bring hips into slight flexion. mod A for supine to sit from sidelying. Practice scooting forward to EOB, cues for leaning to the side and bringing individual hips forward. Initially needing mod A, progressed to min A to CGA. mod A for sit to stand, cues to push from the bed. Ambulation <> bathroom x 15 feet with step to gait pattern , cues for upright posture, less pressure on FWW. Min A for sit to supine with LE's. Practice scooting up in bed using bridge and bedrails. M7 PT-IP Assessment and Plan Start: 11/09/17 15:54 Freq: NEEDED Status: Active Protocol: Document 11/10/17 11:30 MDD (Rec: 11/10/17 12:49 MDD [id number]) PT Summary Assessment and Plan Potential Rehabilitation Potential Good Status of Condition at Evaluation Stable Summary Impairments Pain Bed Mobility Transfers Gait Progress Towards Goals Progressing Toward Goals Assessment Summary Pt demonstrates improved ability to scoot toward EOB and scoot up in bed today. Continues to have most difficulty with supine to sit. Ambulated 15 feet with step to gait pattern using FWW. Will continue to require skilled therapy to maximize function. Goals Bed Mobility Goal Standby Assistance Transfer Goal Standby Assistance Gait Goal Standby Assistance Gait Distance 100 Other Goals Ascend/descend 4 steps with B railings. Days to Meet Goals 3 Frequency of Treatment Frequency Of Treatment Twice a Day Treatment Plan Physical Therapy Treatment Plan Bed Mobility Training Transfer Training Gait Training Therapeutic Exercise Post Op Education Recommendations To Nursing Amount of Assist Needed 2 Person Assist Discharge Recommendations PT Discharge Recommendations SNF Rehab Equipment Needed for Home Before FWW - plans on getting Discharge one from the [facility]
--- NOTE | 2017-11-10 15:08 | CM.DPC ---
DCP/continued: Reviewed chart. Patient seen by therapy and SNF currently recommended. Met with patient, sister, and daughter at bedside. Patient aware of therapy recommendations and agreeable to short SNF stay. Medicare SNF list had been given on 11-07-17. First SNF choice is [facility]. Placed call to Silvia at [facility] and she will review for admit. Per Silvia she does not anticipate any issues with acceptance. D/C anticipated within the next 24-48hrs. P: Anticipate d/c to [facility] when medically stable. [facility] currently reviewing and expect to have bed when patient medically stable. JUAN Woods
--- NOTE | 2017-11-10 15:14 | PC.NURSE ---
Obtained clean urine sample from urostomy with new appliance applied. Mucus and concentrated. Afebrile at this time. Up with PT.
[2017-11-10 15:43] LABS: Sodium Urine Random 24 mmol/L (30-90)
--- NOTE | 2017-11-10 15:51 | PT.IPTN ---
Current Diagnoses Hypo-osmolality and hyponatremia (11/07/17) Fracture of unspecified part of neck of right femur, initial encounter for closed fracture (11/07/17) Surgery Performed Operation Date: 11/08/17 11:00 Actual Procedures p Hip Hemiarthroplasty(Right) - Derek Dumont MD Physical Therapy Treatment Note M2 PT-IP Current Condition Start: 11/09/17 15:54 Freq: NEEDED Status: Active Protocol: Document 11/09/17 14:50 MDD (Rec: 11/09/17 16:13 MDD [id number]) Physical Therapy Current Condition Current Condition Evaluation Date 11/09/17 Treatment Diagnosis s/p R hip fx Onset Date 11/08/17 Precautions Posterior Hip Precautions No Hip Flexion > 90 degrees No Hip Internal Rotation No Hip Adduction Weight Bearing Status Weight Bearing Status Weight Bear as Tolerated M3 PT-IP Subjective Start: 11/09/17 15:54 Freq: NEEDED Status: Active Protocol: Document 11/10/17 15:51 MDD (Rec: 11/10/17 16:22 MDD [id number]) Subjective Physical Therapy Visit Type Type Treatment Note Visit Start Time 15:15 Visit Stop Time 15:51 Total Visit Minutes 36 Number of EXHAUST AND MUFFLER REPAIRER Visits 0 Physical Therapy Visit Comments Patient Comments Pt agreeable to working with therapy this afternoon. Had received pain medicine at 14: 30 pm. Therapy Pain Assessment Pain When Pain Assessed During Mobility Pain Present Pain Present Pain Reported Location Right Hip Intensity 7 Scale Used Numeric (1 - 10) Description Aching Stabbing Pain Behaviors Wincing Pain Management Techniques Timing of Activity with Medications M4 PT-IP Mobility and Gait Start: 11/09/17 15:54 Freq: NEEDED Status: Active Protocol: Document 11/09/17 14:50 MDD (Rec: 11/09/17 16:13 MDD [id number]) PT-Bed Mobility Assessment Supine to Sit Supine to Sit Moderate Assistance Head of Bed Elevated Bedrails Sit to Supine Sit to Supine Moderate Assistance Scooting Scooting to Edge of Bed Moderate Assistance Scooting Up and Down in Bed Maximum Assistance PT-Transfer Assessment Sit to and From Stand Sit to and from Stand Moderate Assistance Equipment Transfer Assistive Device Gait Belt Front Wheeled Walker Gait Assessment Gait Gait Assistance Required: Minimum Assistance Distance (Feet) (feet) 2 Able to Maintain Weight Bearing Status Yes During Gait Assistive Devices Assistive Device Gait Belt Front Wheeled Walker Gait Deviations General Gait Pattern Antalgic Decreased Stride Length Step-to Gait Comments Gait Comments Pt took 2 steps to scoot himself up in bed. Very antalgic with increased reliance on UE's. PT-Balance Assessment Sitting Balance and Reactions Static Sitting Balance Ability Good Dynamic Sitting Balance Ability Fair Standing Balance and Reactions Static Standing Balance Ability Good M5 PT-IP Objective Assessments Start: 11/09/17 15:54 Freq: NEEDED Status: Active Protocol: Document 11/09/17 14:50 MDD (Rec: 11/09/17 16:13 MDD [id number]) Orientation Orientation/Cognition Level of Alertness Alert Orientation Name Age Place Situation Language Function Ability No Deficits Noted Safety Awareness Understands Safety Issues Memory Description No Deficits Noted Gross Range of Motion Lower Extremity ROM Assessment Within Functional Limits Strength Lower Extremity Strength Assessment Within Functional Limits Sensation Assessment Sensation Gross Sensation WNL M6 PT-IP Treatment Start: 11/09/17 15:54 Freq: NEEDED Status: Active Protocol: Document 11/10/17 15:51 MDD (Rec: 11/10/17 16:22 MDD [id number]) Physical Therapy Treatment Education Education Provided Precautions Post-Op Packet Safety Other Treatments Other Treatment Performed Bed mobility - log roll to R with pillow between knees, cues for reaching, min A for R hip flexion. Min A for sit to supine, difficulty getting R arm underneath. Sit to stand with cues for hands on bed, min A, cues for standing tall. Ambulated 15 feet in the room with step to gait pattern. Gait training in hallway, 50 feet x 2, improved to step through gait pattern. M7 PT-IP Assessment and Plan Start: 11/09/17 15:54 Freq: NEEDED Status: Active Protocol: Document 11/10/17 15:51 MDD (Rec: 11/10/17 16:22 MDD [id number]) PT Summary Assessment and Plan Potential Rehabilitation Potential Excellent Status of Condition at Evaluation Stable Summary Impairments Pain Bed Mobility Transfers Gait Activity Tolerance Progress Towards Goals Progressing Toward Goals Assessment Summary Demonstrating improved distance and gait pattern with ambulation this day with CGA using FWW. Continues to be most limited by pain with bed mobility. Should continue to benefit from skilled inpatient therapy. Goals Bed Mobility Goal Standby Assistance Transfer Goal Standby Assistance Gait Goal Standby Assistance Gait Distance 100 Other Goals Ascend/descend 4 steps with B railings. Days to Meet Goals 3 Frequency of Treatment Frequency Of Treatment Twice a Day Treatment Plan Physical Therapy Treatment Plan Bed Mobility Training Transfer Training Gait Training Therapeutic Exercise Post Op Education Recommendations To Nursing Amount of Assist Needed 2 Person Assist Discharge Recommendations PT Discharge Recommendations SNF Rehab Equipment Needed for Home Before FWW - [facility] [place]
--- NOTE | 2017-11-10 16:38 | OT.IP.EVAL ---
Current Diagnoses Hypo-osmolality and hyponatremia (11/07/17) Fracture of unspecified part of neck of right femur, initial encounter for closed fracture (11/07/17) Surgery Performed Operation Date: 11/08/17 11:00 Actual Procedures p Hip Hemiarthroplasty(Right) - Derek Dumont MD Past Medical History (Last Reviewed 11/08/17 @ 10:28 by Kailee Melgar MD) Bladder cancer (Acute) Coronary artery disease (Acute) H/O thyroidectomy (Acute) Hypertension (Acute) Hyponatremia (Acute) Hypothyroid (Acute) Kidney stones (Acute) Prostate cancer (Acute) Thyroid cancer (Acute) Surgical History (Last Reviewed 11/08/17 @ 10:28 by Kailee Melgar MD) H/O colectomy (Acute) History of appendectomy (Acute) History of urostomy (Acute) Occupational Therapy Inpatient Evaluation/Re-Eval M1 PT/OT-IP Prior Functional Status Start: 11/09/17 15:54 Freq: NEEDED Status: Active Protocol: Document 11/10/17 16:38 PJM (Rec: 11/10/17 16:54 PJM [id number]) Medical Review Prior Functional Status Medical History Reviewed Yes Diet/Fluid Consistency Regular Communication WNL Mobility and Gait independent with no AD Activities of Daily Living and IADL's independent Prior Functional Level (Other details) has had B TKA's and cannot provide much physical assist at home. Social History Household Members spouse family Living Arrangements House Number of Stairs To Enter/Railing? 4 stairs with B rails Home Environment Standard Height Toilet Walk in Shower Home Equipment Front Wheel Walker Bedside Commode Shower Seat with Backrest Long Handled Sponge Long Handled Shoe Horn Car Dryer Sock Aid Grab Bars In Shower Employment Status Retired Additional Social History Comment Daughter to obtain BSC and long bath sponge for pt. She has already obtained FWW. Pt has cloth hauler and long metal shoe horn. Pt will borrow his 's hard sock aid which she is no longer using. M2 OT-IP Current Condition Start: 11/10/17 16:37 Freq: Status: Active Protocol: Document 11/10/17 16:38 PJM (Rec: 11/10/17 16:54 PJM [id number]) Occupational Therapy Current Condition Current Condition Evaluation Date 11/10/17 Treatment Diagnosis decreased self care and functional mobility s/p RTHA for femoral neck fx Diagnosis Onset Date 11/09/17 Post Operative Precautions Posterior Hip Precautions No Hip Flexion > 90 degrees No Hip Internal Rotation No Hip Adduction Weight Bearing Status Weight Bearing Status Weight Bear as Tolerated M3 OT- IP Subjective and Pain Start: 11/10/17 16:37 Freq: Status: Active Protocol: Document 11/10/17 16:38 PJM (Rec: 11/10/17 16:54 PJM [id number]) OT- Subjective Occupational Therapy Visit Type Type Initial Evaluation Visit Start Time 15:50 Visit Stop Time 16:37 Total Visit Minutes 47 Notes Pt's daughter here for education today. not present. Occupational Therapy Visit Comments Patient Comments My can't help me much at home. Patient/Caregiver Goals to go to rehab to get more independent prior to return home with and family support, to attend grandson's wedding in late Dec. OT Pain Assessment Pain When Pain Assessed After Treatment Pain Present Pain Present Pain Reported Location Right Hip Intensity 3 Scale Used Numeric (1 - 10) Description Aching Pain Behaviors Guarding Management Techniques Distraction Re-positioning Timing of Activity with Medications M4 OT- IP ADL's Start: 11/10/17 16:37 Freq: Status: Active Protocol: Document 11/10/17 16:38 PJM (Rec: 11/10/17 16:54 PJM [id number]) OT VRL-Muzy-Formyld General Evaluation Self-Feeding Ability Independent OT ADL-Grooming General Evaluation Grooming Ability Standby Assistance Comments OT Grooming Comments after set up in chair OT ADL-Oral Care General Eval Oral Care Ability Standby Assistance Comments Oral Care Comments after set up in chair OT ADL-Dressing General Eval Lower Body Dressing Ability Maximum Assistance Comments OT Dressing Comments Began education re: use of cloth hauler, sock aid, long shoe horn for lower body dressing with emphasis on posterior hip precautions. OT ADL-Toileting General Evaluation Toileting Ability Maximum Assistance Areas Needing Assistance Empty Catheter or Colostomy Comments OT Toileting Comments pt has long standing urostomy from previous bladder CA and normally stands to empty bag in bathroom and uses larger night bag OT ADL-Bathing Comments OT Bathing Comments to be assessed as activity tolerance improves, daughter to obtain longer bath sponge for pt M5 OT- IP IADL's Start: 11/10/17 16:37 Freq: Status: Active Protocol: Document 11/10/17 16:38 PJM (Rec: 11/10/17 16:54 PJ [email or web address]) OT-Instrumental Activities of Daily Living Deficits IADL Deficits Identified Deficits Home Safety Awareness Awareness of Need for Assistance at Home Good Awareness Ability to Problem Solve Emergency Able to Problem Solve Situations Medication Management Medication Management No Deficits Identified Money Management Money Management No Deficits Identified Meal Preparation Meal Preparation Caregiver Provides Assist Center Medical Specialist Center Medical Specialist Caregiver Provides Assist Driving Driving Caregiver Provides Assist Driving Comments family to assist until pt able M6 OT- IP Functional Cognition Start: 11/10/17 16:37 Freq: Status: Active Protocol: Document 11/10/17 16:38 PJM (Rec: 11/10/17 16:54 PJ [email or web address]) Cognitive Factors Limiting Selfcare Function Cognitive Ability Level of Alertness Alert Patient Orientation Name Age Birthday Month Date Year Day of Week Place Situation Attention Span Ability Capable of Focused Attention Capable of Sustained Attention Ability to Follow Commands Able to Follow One Step Commands Cognitive Comments Cognitive Assessment Comments Pt recalls posterior hip precautions but needs verbal cues to apply them during functional mobility and self care tasks. OT- Vision and Hearing OT- Hearing Assessment OT- Hearing Assessment WFL OT- Vision Assessment Visual Acuity WFL Glasses All The Time Vision Assessment Comments Pt denies any recent changes. M7 OT- IP Mobility and Balance Start: 11/10/17 16:37 Freq: Status: Active Protocol: Document 11/10/17 16:38 PJM (Rec: 11/10/17 16:54 PJ [email or web address]) OT-Transfer Assessment Comments Mobility Comments See P.T. notes; pt may sleep in recliner at home OT- Gait Assessment Comments Gait Ability Comments See P.T. notes OT- Balance Assessment Comments Other Balance Tests/Deviations/Treatment See P.T. notes : M8 OT- IP Objective Assessments Start: 11/10/17 16:37 Freq: Status: Active Protocol: Document 11/10/17 16:38 PJM (Rec: 11/10/17 16:54 PJ [id number]) OT Gross Range of Motion Upper Extremity Range of Motion Assessment Within Functional Limits OT Strength Upper Extremity Strength Assessment Within Functional Limits OT- Coordination Assessment Comments Coordination Comments BUE WFL OT-Muscle Tone Assessment Muscle Tone WNL Yes OT Sensation Assessment Comments Summary Comments Pt wears cotton gloves at all times due to sensitivity from remote chemo therapy M9 OT- IP Assessment and Plan Start: 11/10/17 16:37 Freq: Status: Active Protocol: Document 11/10/17 16:38 PJM (Rec: 11/10/17 16:54 PJM [id number]) OT Summary Assessment and Plan Potential Rehabilitation Potential Excellent Analytic Complexity at Evaluation Low Summary OT Impairments Pain Balance Functional Mobility Grooming Dressing Toileting Bathing Toilet Transfers Shower Transfers Assessment Summary Low complexity OT assessment completed with emphasis on posterior hip precautions. Began education with pt/dtr re : adapted ADL techniques for lower body dressing, showering , toileting, dressing equipment, bathroom safety equipment options and resources, and minimum seat heights. Supportive daughter will assist pt with getting all necessary equipment and son in law to install grab bars in shower. Pt currently has performance deficits in all functional mobility/ transfers, standing grooming, dressing, bathing, toileting. his cannot provide much physical assist at home. Recommend short term SNF at discharge prior to return home with family support. Pt alert , cooperative, and motivated to improve. Goals Grooming Goal Standby Assistance Dressing Goal Minimal Assistance Toileting Goal Standby Assistance Bathing Goal Minimal Assistance Toilet Transfer Goal Contact Guard Assistance Shower Transfer Goal Minimal Assistance Patient/Caregiver Education Goal Demonstrate Post-Op Precautions Caregiver Independent Assisting Patient OT-Other Goals grooming to be done standing at sink with FWW Days to Meet Goals 3 Frequency of Treatment Frequency Of Treatment Once a Day Treatment Plan OT Treatment Plan ADL Training Functional Mobility Patient/Family Education Discharge Planning Discharge Recommendations OT Discharge Recommendations SNF Rehab Home Equipment Needs daughter to obatin all necessary equipment
--- NOTE | 2017-11-10 17:19 | PM.PN.1 ---
Subjective Date Patient Seen: 11/10/17 Time Patient Seen: 13:22 Interval history: Follow-up as follow: patient with right femoral neck fracture secondary to ground level fall patient is postop day 2. After open reduction internal fixation surgical procedure patient also noted to have hyponatremia Note also, prior known history of hyponatremia. Review of systems Patient notes that the pain in his leg is tolerable and addressed effectively with the analgesic therapy provided denies having any chest pain or shortness of breath. No nausea Exam Vital Signs (past 8 hours): - 11/10/17 11:45 11/10/17 16:19 Temperature 98.5 F 98.1 F Pulse Rate 103 H 99 H Respiratory Rate 17 20 Blood Pressure 109/57 L 98/55 L Pulse Oximetry 93 96 Oxygen Delivery Method Room Air Oxygen Flow Rate 0 Narrative Exam Narrative: Const General: cooperative, healthy appearing, comfortable, well developed and well hydrated Nutritional Appearance: average body habitus and well nourished Orientation: alert, awake and oriented x3 Resp Effort & Inspection: normal respiratory effort, able to speak in complete sentences and symmetric chest movement Auscultation: no bronchial breath sounds, crackles and no wheezes Cardio Palpation: normal PMI Rate: regular rate Rhythm: regular rhythm Heart Sounds: S1 normal and S2 normal Pulses: radial pulses present GI Inspection: normal to inspection Palpation: No pulsatile mass, No tender and No ascites Auscultation: normal bowel sounds Skin General: warm Lesions: no lesions Psych Appearance: grossly normal Mental Status: mental status grossly normal Speech and Movement: speech and movement normal Mood: congruent mood Affect: normal affect Attitude: cooperative Thought Process: normal Objective Labs Result Diagrams: 11/10/17 05:20 11/10/17 05:20 Labs: Laboratory Results - last 24 hr 11/09/17 11/10/17 11/10/17 05:26 05:20 05:20 WBC 13.5 H RBC 3.47 L Hgb 10.1 L Hct 30.2 L MCV 86.9 MCH 29.2 MCHC 33.6 RDW 13.9 Plt Count 150 Neut % (Auto) 76.1 H Lymph % (Auto) 9.0 L [place] % (Auto) 13.7 Eos % (Auto) 0.8 L Baso % (Auto) 0.4 Neut # (Auto) 02401 H Sodium 127 L Potassium 4.1 Chloride 93 L Carbon Dioxide 29 BUN 18 Creatinine 0.90 Estimated GFR > 60.0 BUN/Creatinine Ratio 20.0 Glucose 110 Calcium 7.9 L Total Bilirubin 0.7 AST 44 ALT 24 Alkaline Phosphatase 40 B-Natriuretic Peptide < 100.0 Total Protein 5.3 L Albumin 2.8 L Globulin 2.5 Albumin/Globulin Ratio 1.1 Ur Random Sodium 11/10/17 14:50 WBC RBC Hgb Hct MCV MCH MCHC RDW Plt Count Neut % (Auto) Lymph % (Auto) [place] % (Auto) Eos % (Auto) Baso % (Auto) Neut # (Auto) Sodium Potassium Chloride Carbon Dioxide BUN Creatinine Estimated GFR BUN/Creatinine Ratio Glucose Calcium Total Bilirubin AST ALT Alkaline Phosphatase B-Natriuretic Peptide Total Protein Albumin Globulin Albumin/Globulin Ratio Ur Random Sodium 24 L Assessment & Plan Plan: Assessment/Plan Narrative: 1. Right femoral neck fracture after a fall. s/p OR/IF November 08. POD #2 today. Patient continues to note the pain is tolerable. 2. History of coronary artery disease: Continue metoprolol 75 mg bid, losartan 50 mg once qd and 81 mg aspirin daily 3. Hyperlipidemia: Atorvastatin 40 mg q.h.s. 4. Hypothyroidism: Synthroid 125 mcg daily 5. Hypertension: Metoprolol and Losartan per outpatient dosing 6. Hyponatremia sodium level yesterday was 30 with prior recent serum sodium level = 123. Potential causes of hyponatremia include hypothyroidism so requested TSH and reflex T4 to investigate further will also order a urine sodium and urine osmolality if patient is appropriately handling the hyponatremia the urine sodium concentration should be less than 20. On review the TSH is normal. The reported urine sodium was 24 and near to the desired value of 20. Will continue the same IV fluids and repeat labs in AM. 7. Respiratory crackles noted on auscultation bilateral. Patient notes smoking history many years ago patient is unaware of any history of COPD or emphysema. No history of pulmonary fibrosis. November 09 BNP and PA/LAT CXR notes a normal BNP and Chest x-RAY notes no acute pulm process and no CHF. Time Spent With Patient Time with patient: 25 - 35 minutes Quality VTE Deep Vein Thrombosis/Pulmonary Embolism Present on Admission: Yes
[2017-11-10] MEDS: DOCUSATE 250 MG CAPSULE PO (20:54)
[2017-11-11] VITALS (8 sets, daily range): BP systolic 124–143; BP diastolic 59–82; PULSE 82–91; RESP 16–20; TEMP 36.4–38.1; O2SAT 94–143
--- NOTE | 2017-11-11 04:39 | PC.NURSE ---
shift note met with pt at start of shift. Pt reported no pain/ N/V/ headache. Pt is AOx3. R AC PIV hep ramakrishna. fine crackles observed in left lower lobe. RA 96%. Urostomy draining, no kinks. Q2H turns. Bulky dressing on right hip is CDI. Dressing on R elbow CDI. Pt temp was 99.1 at start of shift, increased 100.2. Will continue to monitor. Call light in reach.
[2017-11-11 05:40] LABS: Add Manual Diff / Slide Review NO; Basophils Percent Auto 0.8 % (0-2); Eosinophils Percent Auto 2.8 % (2-4); Hematocrit 27.5 % (41-53); Hemoglobin 9.3 g/dL (13.5-17.5); Lymphocytes Percent Auto 11.5 % (25-40); Mean Corpuscular Hemoglobin 29.5 PG (26-34); Mean Corpuscular Volume 86.8 fL (80-100); Monocytes Percent Auto 13.7 % (3-14); Neutrophils Absolute Auto 8900 /uL (3000-5900); Neutrophils Percent Auto 71.2 % (50-75); Platelet Count 147 X10^3/uL (150-400); Red Blood Cell Count 3.17 X10^6/uL (4.5-5.9); Red Cell Distribution Width 13.7 % (11.6-14.8); White Blood Cell Count 12.5 X10^3/uL (4.5-11.0)
[2017-11-11 05:56] LABS: Alanine Aminotransferase 30 IU/L (21-72); Albumin 2.6 g/dL (3.5-5.0); Albumin Globulin Ratio 1.1 (1.0-2.8); Alkaline Phosphatase 41 U/L (38-126); Aspartate Aminotransferase 62 IU/L (17-59); BUN Creatinine Ratio 21.3 (6-22); Bilirubin Total 0.6 mg/dL (0.2-1.3); Blood Urea Nitrogen 17 mg/dL (9-20); Calcium 7.6 mg/dL (8.4-10.2); Carbon Dioxide 28 mmol/L (22-32); Chloride 90 mmol/L (98-107); Estimated Glomerular Filt Rate > 60.0 mL/min (>60); Globulin 2.4 g/dL (1.7-4.1); Glucose 106 mg/dL (80-110); HEMOLYSIS < 15 (0-50); Potassium 3.9 mmol/L (3.4-5.1); Sodium 123 mmol/L (137-145)
--- NOTE | 2017-11-11 07:13 | PM.PN.1 ---
Subjective Date Patient Seen: 11/11/17 Time Patient Seen: 13:47 Interval history: History of present illness Follow-up on patient with hyponatremia that appears to have worsened over the past several days. Patient admitted to the hospital with a right femoral neck fracture with open reduction internal fixation. Patient is postop day 3. Today. Review of systems Patient denies any chest pain or shortness of breath or nausea is appetite good no specific complaints noted today pain is manageable Exam Vital Signs (past 8 hours): - 11/10/17 23:51 11/11/17 04:28 Temperature 99.1 F 100.2 F H Pulse Rate 95 H 90 Respiratory Rate 18 18 Blood Pressure 144/64 H 129/59 H Pulse Oximetry 96 96 Oxygen Delivery Method Room Air Oxygen Flow Rate 0 Narrative Exam Narrative: General appearance patient has noted awake and alert in good spirits visiting with his at bedside. Psychiatric patient is well oriented no apparent distress and with good mood that is pleasant Respiratory Good auscultation of the lungs with clear breath sounds noted no wheezes no crackles Cardiovascular Regular in rate and rhythm no murmurs rubs or gallops Gastrointestinal Abdomen is soft nontender positive bowel sounds are noted Neurologic No focal neurologic changes cranial nerves 2-12 are grossly intact Objective Labs Result Diagrams: 11/11/17 05:27 11/11/17 05:27 Labs: Laboratory Results - last 24 hr 11/10/17 11/11/17 11/11/17 14:50 05:27 05:27 WBC 12.5 H RBC 3.17 L Hgb 9.3 L Hct 27.5 L MCV 86.8 MCH 29.5 MCHC 34.0 RDW 13.7 Plt Count 147 L Neut % (Auto) 71.2 Lymph % (Auto) 11.5 L [place] % (Auto) 13.7 Eos % (Auto) 2.8 Baso % (Auto) 0.8 Neut # (Auto) 8900 H Sodium 123 L Potassium 3.9 Chloride 90 L Carbon Dioxide 28 BUN 17 Creatinine 0.80 Estimated GFR > 60.0 BUN/Creatinine Ratio 21.3 Glucose 106 Calcium 7.6 L Total Bilirubin 0.6 AST 62 H ALT 30 Alkaline Phosphatase 41 Total Protein 5.0 L Albumin 2.6 L Globulin 2.4 Albumin/Globulin Ratio 1.1 Ur Random Sodium 24 L Assessment & Plan Plan: Assessment/Plan Narrative: 1. Right femoral neck fracture after a fall. s/p OR/IF November 08. POD #2 today. Patient continues to note the pain is tolerable. 2. History of coronary artery disease: Continue metoprolol 75 mg bid, losartan 50 mg once qd and 81 mg aspirin daily 3. Hyperlipidemia: Atorvastatin 40 mg q.h.s. 4. Hypothyroidism: Synthroid 125 mcg daily 5. Hypertension: Metoprolol and Losartan per outpatient dosing 6. Hyponatremia sodium level yesterday was 127 and prior day the sodium was 130. Earlier in hospital course the serum sodium level was 123, which it is today. Potential causes of hyponatremia include hypothyroidism so I requested TSH and reflex T4 to investigate further. I also ordered a urine sodium and urine osmolality if patient is appropriately handling the hyponatremia the urine sodium concentration should be less than 20. On review the TSH is normal. The reported urine sodium was 24 and near to the desired value of 20. Will continue the same IV fluids and repeat labs in AM. (See Below for further discussion on hyponatremia). Will provide a normal saline IV infusion today and further assess with labs in AM. Today will repeat the urine indices and include urine chloride as well. 7. Respiratory crackles noted on auscultation bilateral. Patient notes smoking history many years ago patient is unaware of any history of COPD or emphysema. No history of pulmonary fibrosis. November 09 BNP and PA/LAT CXR notes a relatively normal value for BNP and Chest x-RAY notes no acute pulm process and no CHF. Discussion on Hyponatremia: Low urine sodium (<25 mEq/L) ? The urine sodium concentration is usually below 25 mEq/L in patients with hypovolemia caused by gastrointestinal fluid losses (eg, diarrhea), by movement of fluid into the third space (eg, pancreatitis), and by renal fluid losses due to diuretics if the measurement is performed AFTER the effect of the diuretic HAS ABATED. High urine sodium and chloride (>40 mEq/L) ? The sodium and chloride concentrations are usually above 40 mEq/L in hypovolemic hyponatremic patients with renal salt losses. This is most commonly seen with diuretic therapy if the urine electrolytes are measured while the effect of the diuretic is still present. Renal fluid loss with hyponatremia may also result from primary adrenal insufficiency (in which there is deficiency of both cortisol and aldosterone) and cerebral salt wasting (in which the mechanism of renal salt wasting is poorly understood). A low urine sodium (<25 mEq/L) with a low urine osmolality (<100 mosmol/kg) can be seen in the following settings: Primary polydipsia, Malnutrition, Reset osmostat and surreptitious diuretic use. Points to consider: 1. The urine may also be dilute if it is measured after the reason for ADH release has been corrected. 2. Reset osmostat, in which a water load appropriately suppresses ADH release but at a lower serum osmolality than in normal individuals. As in patients with SIADH, the urine osmolality and urine sodium will be high in patients with reset osmostat if they are measured when water intake is restricted; the urine osmolality and urine sodium will be low if measured immediately after water is ingested.However, once the serum sodium concentration has increased to a level above the threshold that stimulates ADH release, the urine osmolality and urine sodium concentrations will again be high. The major clinical clue to the presence of this disorder, which presents with clinical features similar to the SIADH, is a moderately reduced plasma sodium concentration (usually between 125 and 135 mEq/L) that is stable on multiple measurements. As in patients with SIADH, urine sodium excretion matches sodium intake in patients with reset osmostat. Time Spent With Patient Time with patient: 25 - 35 minutes Quality VTE Deep Vein Thrombosis/Pulmonary Embolism Present on Admission: Yes
--- NOTE | 2017-11-11 07:22 | PM.PNPO.1 ---
Subjective Date Patient Seen: 11/11/17 Time Patient Seen: 07:22 Interval history: November 08, 2017 postop day 3 status post right hip endoprosthetic replacement for femoral neck fracture. Patient notes some fever no chills. No shortness of breath or cough. Has been ambulating out of the [place] with physical therapy. Pain mild to moderate. Otherwise without complaints this morning. Exam Vital Signs (past 8 hours): - 11/10/17 23:51 11/11/17 04:28 Temperature 99.1 F 100.2 F H Pulse Rate 95 H 90 Respiratory Rate 18 18 Blood Pressure 144/64 H 129/59 H Pulse Oximetry 96 96 Oxygen Delivery Method Room Air Oxygen Flow Rate 0 Narrative Exam Narrative: 82-year-old male resting comfortably in bed in no apparent distress. Right hip dressing clean, dry and intact. Sensation grossly intact distal right lower extremity. Calf is soft nontender. No edema. Right leg is warm and dry. Motor functions intact distally. Objective Labs Result Diagrams: 11/11/17 05:27 11/11/17 05:27 Labs: Laboratory Results - last 24 hr 11/10/17 11/11/17 11/11/17 14:50 05:27 05:27 WBC 12.5 H RBC 3.17 L Hgb 9.3 L Hct 27.5 L MCV 86.8 MCH 29.5 MCHC 34.0 RDW 13.7 Plt Count 147 L Neut % (Auto) 71.2 Lymph % (Auto) 11.5 L [place] % (Auto) 13.7 Eos % (Auto) 2.8 Baso % (Auto) 0.8 Neut # (Auto) 8900 H Sodium 123 L Potassium 3.9 Chloride 90 L Carbon Dioxide 28 BUN 17 Creatinine 0.80 Estimated GFR > 60.0 BUN/Creatinine Ratio 21.3 Glucose 106 Calcium 7.6 L Total Bilirubin 0.6 AST 62 H ALT 30 Alkaline Phosphatase 41 Total Protein 5.0 L Albumin 2.6 L Globulin 2.4 Albumin/Globulin Ratio 1.1 Ur Random Sodium 24 L Assessment & Plan Post-op Postoperative Procedures Operation Date: 11/08/17 11:00 Actual Procedures Side Surgeon p Hip Hemiarthroplasty Right Derek Dumont MD patient running slight temp overnight. White count slightly elevated. Will continue to monitor. His chest x-ray was normal on November 09, 2017. patient is being followed by hospitalist. Patient will need follow up with scheduled [facility] tendon 14 days postop. Continue posterior hip precautions. Lovenox for 10 days postop. Patient will likely need shelter facility placement as his is not able to care for him. Time Spent With Patient less than 15 minutes Quality VTE Deep Vein Thrombosis/Pulmonary Embolism Present on Admission: Yes
--- NOTE | 2017-11-11 07:27 | P.PN_ITS ---
Subjective Date Patient Seen: 11/11/17 Time Patient Seen: 07:22 Interval history: November 08, 2017 postop day 3 status post right hip endoprosthetic replacement for femoral neck fracture. Patient notes some fever no chills. No shortness of breath or cough. Has been ambulating out of the [place] with physical therapy. Pain mild to moderate. Otherwise without complaints this morning. Exam Vital Signs (past 8 hours): - 11/10/17 23:51 11/11/17 04:28 Temperature 99.1 F 100.2 F H Pulse Rate 95 H 90 Respiratory Rate 18 18 Blood Pressure 144/64 H 129/59 H Pulse Oximetry 96 96 Oxygen Delivery Method Room Air Oxygen Flow Rate 0 Narrative Exam Narrative: 82-year-old male resting comfortably in bed in no apparent distress. Right hip dressing clean, dry and intact. Sensation grossly intact distal right lower extremity. Calf is soft nontender. No edema. Right leg is warm and dry. Motor functions intact distally. Objective Labs Result Diagrams: 11/11/17 05:27 11/11/17 05:27 Labs: Laboratory Results - last 24 hr 11/10/17 11/11/17 11/11/17 14:50 05:27 05:27 WBC 12.5 H RBC 3.17 L Hgb 9.3 L Hct 27.5 L MCV 86.8 MCH 29.5 MCHC 34.0 RDW 13.7 Plt Count 147 L Neut % (Auto) 71.2 Lymph % (Auto) 11.5 L [place] % (Auto) 13.7 Eos % (Auto) 2.8 Baso % (Auto) 0.8 Neut # (Auto) 8900 H Sodium 123 L Potassium 3.9 Chloride 90 L Carbon Dioxide 28 BUN 17 Creatinine 0.80 Estimated GFR > 60.0 BUN/Creatinine Ratio 21.3 Glucose 106 Calcium 7.6 L Total Bilirubin 0.6 AST 62 H ALT 30 Alkaline Phosphatase 41 Total Protein 5.0 L Albumin 2.6 L Globulin 2.4 Albumin/Globulin Ratio 1.1 Ur Random Sodium 24 L Assessment & Plan Post-op Postoperative Procedures Operation Date: 11/08/17 11:00 Actual Procedures Side Surgeon p Hip Hemiarthroplasty Right Derek Dumont MD patient running slight temp overnight. White count slightly elevated. Will continue to monitor. His chest x-ray was normal on November 09, 2017. patient is being followed by hospitalist. Patient will need follow up with scheduled [facility] tendon 14 days postop. Continue posterior hip precautions. Lovenox for 10 days postop. Patient will likely need correction facility placement as his is not able to care for him. Time Spent With Patient less than 15 minutes Quality VTE Deep Vein Thrombosis/Pulmonary Embolism Present on Admission: Yes
[2017-11-11] MEDS: SODIUM CHLORIDE 0.9% 1,000 ML 150 ML IV (09:32)
[2017-11-11] MEDS: ASPIRIN EC 81 MG TABLET PO ×2 (09:32→20:32)
[2017-11-11] MEDS: HYDROCODONE/ACET 5/325 TABLET 1 TAB PO ×2 (09:32→23:57)
[2017-11-11] MEDS: ENOXAPARIN 30 MG/0.3 ML SYRINGE SUBCUT (09:32)
[2017-11-11] MEDS: PREGABALIN 75 MG CAPSULE 150 MG PO ×3 (09:32→20:32)
[2017-11-11] MEDS: DOCUSATE 100 MG CAPSULE PO (09:32)
[2017-11-11] MEDS: SODIUM CHLORIDE 0.9% FLUSH 10 ML IV ×2 (09:32→20:32)
--- NOTE | 2017-11-11 11:30 | PT.IPTN ---
Current Diagnoses Hypo-osmolality and hyponatremia (11/07/17) Fracture of unspecified part of neck of right femur, initial encounter for closed fracture (11/07/17) Surgery Performed Operation Date: 11/08/17 11:00 Actual Procedures p Hip Hemiarthroplasty(Right) - Derek Dumont MD Physical Therapy Treatment Note M2 PT-IP Current Condition Start: 11/09/17 15:54 Freq: NEEDED Status: Active Protocol: Document 11/09/17 14:50 MDD (Rec: 11/09/17 16:13 MDD [id number]) Physical Therapy Current Condition Current Condition Evaluation Date 11/09/17 Treatment Diagnosis s/p R hip fx Onset Date 11/08/17 Precautions Posterior Hip Precautions No Hip Flexion > 90 degrees No Hip Internal Rotation No Hip Adduction Weight Bearing Status Weight Bearing Status Weight Bear as Tolerated M3 PT-IP Subjective Start: 11/09/17 15:54 Freq: NEEDED Status: Active Protocol: Document 11/11/17 11:30 GGD (Rec: 11/11/17 11:47 GGD [email or web address]) Subjective Physical Therapy Visit Type Type Treatment Note Visit Start Time 11:00 Visit Stop Time 11:30 Total Visit Minutes 30 Number of RETAIL SHIFT LEADER Visits 1 Physical Therapy Visit Comments Patient Comments Pt states that he ready to get up. Therapy Pain Assessment Pain When Pain Assessed At Rest Pain Present Pain Present Pain Reported Location Right Hip Intensity 4 Scale Used Numeric (1 - 10) M4 PT-IP Mobility and Gait Start: 11/09/17 15:54 Freq: NEEDED Status: Active Protocol: Document 11/11/17 11:30 GGD (Rec: 11/11/17 11:47 GGD [email or web address]) PT-Bed Mobility Assessment Supine to Sit Supine to Sit Moderate Assistance Head of Bed Elevated Bedrails Scooting Scooting to Edge of Bed Contact Guard Assistance PT-Transfer Assessment Sit to and From Stand Sit to and from Stand Minimal Assistance 1 Person Assistance Use of Upper Extremities Equipment Transfer Assistive Device Gait Belt Front Wheeled Walker Comments Mobility Comments bed mobility with log roll to the right with pillow between knees, HOB elevated and mod A. Gait Assessment Gait Gait Assistance Required: Contact Guard Assist Distance (Feet) (feet) 60 Assistive Devices Assistive Device Gait Belt Front Wheeled Walker Gait Deviations General Gait Pattern Antalgic Decreased Stride Length Step-to Gait M5 PT-IP Objective Assessments Start: 11/09/17 15:54 Freq: NEEDED Status: Active Protocol: Document 11/09/17 14:50 MDD (Rec: 11/09/17 16:13 MDD [id number]) Orientation Orientation/Cognition Level of Alertness Alert Orientation Name Age Place Situation Language Function Ability No Deficits Noted Safety Awareness Understands Safety Issues Memory Description No Deficits Noted Gross Range of Motion Lower Extremity ROM Assessment Within Functional Limits Strength Lower Extremity Strength Assessment Within Functional Limits Sensation Assessment Sensation Gross Sensation WNL M6 PT-IP Treatment Start: 11/09/17 15:54 Freq: NEEDED Status: Active Protocol: Document 11/11/17 11:30 GGD (Rec: 11/11/17 11:47 GGD [email or web address]) Physical Therapy Treatment Exercises Exercises Ankle Pumps Gluteal Sets Education Education Provided Precautions M7 PT-IP Assessment and Plan Start: 11/09/17 15:54 Freq: NEEDED Status: Active Protocol: Document 11/11/17 11:30 GGD (Rec: 11/11/17 11:47 GGD [email or web address]) PT Summary Assessment and Plan Summary Assessment Summary Pt progress slowly with bed mobility. He had mild unsteadiness with gait, but no LOB. He was able to progress gait with FWW. Frequency of Treatment Frequency Of Treatment Twice a Day Treatment Plan Physical Therapy Treatment Plan Bed Mobility Training Transfer Training Gait Training Therapeutic Exercise Post Op Education Recommendations To Nursing Amount of Assist Needed 2 Person Assist Discharge Recommendations PT Discharge Recommendations SNF Rehab Equipment Needed for Home Before FWW - plans on getting Discharge one from the [facility]
--- NOTE | 2017-11-11 13:15 | OT.IP.TRT ---
Current Diagnoses Hypo-osmolality and hyponatremia (11/07/17) Fracture of unspecified part of neck of right femur, initial encounter for closed fracture (11/07/17) Surgery Performed Operation Date: 11/08/17 11:00 Actual Procedures p Hip Hemiarthroplasty(Right) - Derek Dumont MD Occupational Therapy Treatment Note M2 OT-IP Current Condition Start: 11/10/17 16:37 Freq: Status: Active Protocol: Document 11/10/17 16:38 PJM (Rec: 11/10/17 16:54 PJM [id number]) Occupational Therapy Current Condition Current Condition Evaluation Date 11/10/17 Treatment Diagnosis decreased self care and functional mobility s/p RTHA for femoral neck fx Diagnosis Onset Date 11/09/17 Post Operative Precautions Posterior Hip Precautions No Hip Flexion > 90 degrees No Hip Internal Rotation No Hip Adduction Weight Bearing Status Weight Bearing Status Weight Bear as Tolerated M3 OT- IP Subjective and Pain Start: 11/10/17 16:37 Freq: Status: Active Protocol: Document 11/11/17 13:15 PJM (Rec: 11/11/17 17:54 PJM [email or web address]) OT- Subjective Occupational Therapy Visit Type Type Treatment Note Visit Start Time 12:47 Visit Stop Time 13:15 Total Visit Minutes 28 Occupational Therapy Visit Comments Patient Comments 'Things are getting easier today. OT Pain Assessment Pain When Pain Assessed After Treatment Pain Present Pain Present Pain Reported Location Right Hip Intensity 3 Scale Used Numeric (1 - 10) Description Aching M4 OT- IP ADL's Start: 11/10/17 16:37 Freq: Status: Active Protocol: Document 11/11/17 13:15 PJM (Rec: 11/11/17 17:54 PJM [email or web address]) OT ADL-Grooming General Evaluation Grooming Ability Standby Assistance Areas Needing Assistance Combing/Brushing Hair Face Washing Glasses Comments OT Grooming Comments seated in chair OT ADL-Oral Care General Eval Oral Care Ability Standby Assistance Areas of Assistance Brushing Teeth Devices Oral Care Devices Toothbrush Comments Oral Care Comments seated in chair OT ADL-Dressing General Eval Lower Body Dressing Ability Minimal Assistance Areas Needing Assistance Socks Assistive Devices Dressing Assistive Devices Long Handled Shoe [place] Application Support Consultant Comments OT Dressing Comments Practiced lower body dressing with radiology tech and sock aid with pt requiring mod cues and min physical assist for new techniques. Performs slowly. M6 OT- IP Functional Cognition Start: 11/10/17 16:37 Freq: Status: Active Protocol: Document 11/11/17 13:15 PJM (Rec: 11/11/17 17:54 PJM [email or web address]) Cognitive Factors Limiting Selfcare Function Cognitive Comments Cognitive Assessment Comments Pt requires occasional repetition of instructions and min verbal cues to avoid forward bending during self care tasks. M9 OT- IP Assessment and Plan Start: 11/10/17 16:37 Freq: Status: Active Protocol: Document 11/11/17 13:15 PJM (Rec: 11/11/17 17:54 PJM [email or web address]) OT Summary Assessment and Plan Summary OT Impairments Strength Balance Functional Mobility Grooming Dressing Toileting Bathing Toilet Transfers Shower Transfers Progress Towards Goals Progressing Toward Goals Assessment Summary Discharge to SNF delayed today by low sodium level per RN. Pt progressing with adapted self care tasks within posterior hip precautions but still needs min to mod verbal cues and min physical assist with new techniques for lower body dressing. Pt ready to try grooming at sink. Recommend short term SNF prior to return home. Goals Days to Meet Goals 3 Frequency of Treatment Frequency Of Treatment Once a Day Treatment Plan OT Treatment Plan ADL Training Functional Mobility Patient/Family Education Discharge Planning Discharge Recommendations OT Discharge Recommendations SNF Rehab Home Equipment Needs daughter to obatin all necessary equipment
--- NOTE | 2017-11-11 13:26 | PC.NURSE ---
day shift pt c/o pain in buttocks this AM, on assessment pt had stage 2 pressure ulcers present, large open blister on R buttock near crack and distal, 5 small blisters in a row on upper R gluteal cheek. Pictures taken and placed in chart. allevyn dressings applied to both areas. Pt has documented refusal of turns previously. Spoke with pt regarding need for turning now especially with pressure ulcers. Pt wanted to clarify that dressings would not promote healing alone, explained to pt that turning would be the best so he agrees to turn reluctantly. up with PT for walking and also to chair with waffle cusion to chair. hourly rounding provided, call light within reach.
--- NOTE | 2017-11-11 14:15 | PT.IPTN ---
Current Diagnoses Hypo-osmolality and hyponatremia (11/07/17) Fracture of unspecified part of neck of right femur, initial encounter for closed fracture (11/07/17) Surgery Performed Operation Date: 11/08/17 11:00 Actual Procedures p Hip Hemiarthroplasty(Right) - Derek Dumont MD Physical Therapy Treatment Note M2 PT-IP Current Condition Start: 11/09/17 15:54 Freq: NEEDED Status: Active Protocol: Document 11/09/17 14:50 MDD (Rec: 11/09/17 16:13 MDD [id number]) Physical Therapy Current Condition Current Condition Evaluation Date 11/09/17 Treatment Diagnosis s/p R hip fx Onset Date 11/08/17 Precautions Posterior Hip Precautions No Hip Flexion > 90 degrees No Hip Internal Rotation No Hip Adduction Weight Bearing Status Weight Bearing Status Weight Bear as Tolerated M3 PT-IP Subjective Start: 11/09/17 15:54 Freq: NEEDED Status: Active Protocol: Document 11/11/17 14:15 GGD (Rec: 11/11/17 15:30 GGD [email or web address]) Subjective Physical Therapy Visit Type Type Treatment Note Visit Start Time 13:55 Visit Stop Time 14:15 Total Visit Minutes 25 Number of SHOE SALESPERSON Visits 2 Physical Therapy Visit Comments Patient Comments Pt states he is ready to go back to bed. Therapy Pain Assessment Pain When Pain Assessed At Rest Pain Present Pain Present Pain Reported Location Right Hip Intensity 4 Scale Used Numeric (1 - 10) M4 PT-IP Mobility and Gait Start: 11/09/17 15:54 Freq: NEEDED Status: Active Protocol: Document 11/11/17 14:15 GGD (Rec: 11/11/17 15:30 GGD [email or web address]) PT-Bed Mobility Assessment Sit to Supine Sit to Supine Minimal Assistance 1 Person Assistance Bedrails Scooting Scooting to Edge of Bed Contact Guard Assistance PT-Transfer Assessment Sit to and From Stand Sit to and from Stand Minimal Assistance 1 Person Assistance Use of Upper Extremities Equipment Transfer Assistive Device Gait Belt Front Wheeled Walker Comments Mobility Comments bed mobility with log roll to the right with pillow between knees, mod cues and min A. Gait Assessment Gait Gait Assistance Required: Contact Guard Assist Distance (Feet) (feet) 60 Assistive Devices Assistive Device Gait Belt Front Wheeled Walker Gait Deviations General Gait Pattern Antalgic Decreased Stride Length Step-to Gait M5 PT-IP Objective Assessments Start: 11/09/17 15:54 Freq: NEEDED Status: Active Protocol: Document 11/09/17 14:50 MDD (Rec: 11/09/17 16:13 MDD [id number]) Orientation Orientation/Cognition Level of Alertness Alert Orientation Name Age Place Situation Language Function Ability No Deficits Noted Safety Awareness Understands Safety Issues Memory Description No Deficits Noted Gross Range of Motion Lower Extremity ROM Assessment Within Functional Limits Strength Lower Extremity Strength Assessment Within Functional Limits Sensation Assessment Sensation Gross Sensation WNL M6 PT-IP Treatment Start: 11/09/17 15:54 Freq: NEEDED Status: Active Protocol: Document 11/11/17 14:15 GGD (Rec: 11/11/17 15:30 GGD [email or web address]) Physical Therapy Treatment Education Education Provided Precautions M7 PT-IP Assessment and Plan Start: 11/09/17 15:54 Freq: NEEDED Status: Active Protocol: Document 11/11/17 14:15 GGD (Rec: 11/11/17 15:30 GGD [email or web address]) PT Summary Assessment and Plan Summary Assessment Summary Pt need min A with LE and mod cues for bed mobility. He had less unsteadiness with gait. He did fatigue with activity. Frequency of Treatment Frequency Of Treatment Twice a Day Treatment Plan Physical Therapy Treatment Plan Bed Mobility Training Transfer Training Gait Training Therapeutic Exercise Post Op Education Recommendations To Nursing Amount of Assist Needed 2 Person Assist Discharge Recommendations PT Discharge Recommendations SNF Rehab Equipment Needed for Home Before FWW - plans on getting Discharge one from the [facility]
--- NOTE | 2017-11-11 19:19 | PC.NURSE ---
Jennifer shift note: Patient awake, alert, and pleasant. at bedside providing supportive care. Changed positions from right sidelying to supine using supportive/pressure relief measures. Bulky dressing to right lateral hip, CDI. CMS + to RLE, cool extremities per baseline. Urostomy to RLQ with pink stoma, secured and draining to gravity. 3+ edema to right knee, above knee and upper thigh. No c/o pain or discomfort, hesitant to reposition but agrees and understands the importance. BA active and call light within reach.
[2017-11-11] MEDS: DOCUSATE 250 MG CAPSULE PO (20:32)
--- NOTE | 2017-11-12 00:08 | PC.NURSE ---
Addendum entered by Yael Mclean R.N. 11/12/17 06:11: Slept well most of night. Repositioned q2h; when refused Teressa bed was used to change tilt of bed to alter pressure. This morning states pain in hip is 6/10 so medicated with Vicodin but declines ice pack. Original Note: Patient is alert and oriented. Breath sounds with expiratory wheezes throughout and inspiratory crackles at bilateral bases; RA sat 93% and denies SOB. HRR. Complains of sour stomach and requesting antacid but none ordered so agreed to try milk which he states is helping. BT present and abdomen is soft. Urostomy connected to gomez bag and draining clear yellow urine. Is assisted to reposition q2h as not able to turn himself. Has Allevyn dressings to right buttock and right elbow which are CDI. Bruises noted on bilateral UE from past falls. Had SCD's on at start of shift but now refusing to leave on as the sound makes it difficult for him to sleep; reminded to ankle wave and patient verbalizes understanding. Fall risk score is high and bed alarm is activated. Does complain of 4/10 dull, aching pain in right hip; medicated with Vicodin. Is currently afebrile.
[2017-11-12 05:52] LABS: Add Manual Diff / Slide Review NO; Basophils Percent Auto 0.7 % (0-2); Hematocrit 26.5 % (41-53); Hemoglobin 9.1 g/dL (13.5-17.5); Lymphocytes Percent Auto 12.3 % (25-40); Mean Corpuscular HGB Conc 34.2 % (30-36); Mean Corpuscular Hemoglobin 29.6 PG (26-34); Mean Corpuscular Volume 86.6 fL (80-100); Neutrophils Absolute Auto 6800 /uL (3000-5900); Platelet Count 169 X10^3/uL (150-400); Red Blood Cell Count 3.06 X10^6/uL (4.5-5.9); Red Cell Distribution Width 13.6 % (11.6-14.8); White Blood Cell Count 9.8 X10^3/uL (4.5-11.0)
[2017-11-12 05:59] LABS: Alanine Aminotransferase 37 IU/L (21-72); Albumin 2.5 g/dL (3.5-5.0); Alkaline Phosphatase 41 U/L (38-126); Aspartate Aminotransferase 69 IU/L (17-59); BUN Creatinine Ratio 18.8 (6-22); Bilirubin Total 0.6 mg/dL (0.2-1.3); Blood Urea Nitrogen 15 mg/dL (9-20); Calcium 7.8 mg/dL (8.4-10.2); Carbon Dioxide 29 mmol/L (22-32); Chloride 91 mmol/L (98-107); Estimated Glomerular Filt Rate > 60.0 mL/min (>60); Globulin 2.5 g/dL (1.7-4.1); Glucose 107 mg/dL (80-110); HEMOLYSIS < 15 (0-50); Sodium 124 mmol/L (137-145)
[2017-11-12 06:04] VITALS: BP 116/56; PULSE 73; RESP 16; TEMP 36.8; O2SAT 97
[2017-11-12] MEDS: HYDROCODONE/ACET 5/325 TABLET 1 TAB PO (06:08)
[2017-11-12] MEDS: PREGABALIN 75 MG CAPSULE 150 MG PO ×3 (08:24→21:43)
[2017-11-12] MEDS: ASPIRIN EC 81 MG TABLET PO ×2 (08:24→21:42)
[2017-11-12] MEDS: ENOXAPARIN 30 MG/0.3 ML SYRINGE SUBCUT (08:24)
[2017-11-12] MEDS: DOCUSATE 100 MG CAPSULE PO (08:24)
[2017-11-12] MEDS: SODIUM CHLORIDE 0.9% FLUSH 10 ML IV ×3 (08:25→21:43)
--- NOTE | 2017-11-12 11:21 | P.PN_ITS ---
Subjective Date Patient Seen: 11/12/17 Interval history: Patient seen at bedside status post right hemiarthroplasty postop day 4. Patient doing well from an orthopedic standpoint. He has been up with PT. We are pending medical stabilization before the patient is discharged. Exam Vital Signs (past 8 hours): - 11/12/17 06:04 Temperature 98.2 F Pulse Rate 73 Respiratory Rate 16 Blood Pressure 116/56 L Pulse Oximetry 97 Fraction of Inspired Oxygen 21 Oxygen Delivery Method Room Air Oxygen Flow Rate 0 Narrative Exam Narrative: Patient is well-developed, well-nourished, in no acute distress. Patient is alert & oriented. Dressing is CDI, calves are soft and compressible and he has FROM of the knees and ankles. He is NVI in both lower extremities. Objective Labs Result Diagrams: 11/12/17 05:36 11/12/17 05:36 Labs: Laboratory Results - last 24 hr 11/12/17 11/12/17 05:36 05:36 WBC 9.8 RBC 3.06 L Hgb 9.1 L Hct 26.5 L MCV 86.6 MCH 29.6 MCHC 34.2 RDW 13.6 Plt Count 169 Neut % (Auto) 69.0 Lymph % (Auto) 12.3 L [place] % (Auto) 12.0 Eos % (Auto) 6.0 H Baso % (Auto) 0.7 Neut # (Auto) 6800 H Sodium 124 L Potassium 4.0 Chloride 91 L Carbon Dioxide 29 BUN 15 Creatinine 0.80 Estimated GFR > 60.0 BUN/Creatinine Ratio 18.8 Glucose 107 Calcium 7.8 L Total Bilirubin 0.6 AST 69 H ALT 37 Alkaline Phosphatase 41 Total Protein 5.0 L Albumin 2.5 L Globulin 2.5 Albumin/Globulin Ratio 1.0 Assessment & Plan Post-op Postoperative Procedures Operation Date: 11/08/17 11:00 Actual Procedures Side Surgeon p Hip Hemiarthroplasty Right Derek Dumont MD Patient is postop day 4 status post the above procedure. Continue with PT and VTE prophylaxis. Discharged to SNF when medically stable. Follow up in the office in 10-14 days for x-rays, examination, and staple removal. Time Spent With Patient less than 15 minutes Quality VTE Deep Vein Thrombosis/Pulmonary Embolism Present on Admission: No
--- NOTE | 2017-11-12 12:00 | PT.IPTN ---
Current Diagnoses Hypo-osmolality and hyponatremia (11/07/17) Fracture of unspecified part of neck of right femur, initial encounter for closed fracture (11/07/17) Surgery Performed Operation Date: 11/08/17 11:00 Actual Procedures p Hip Hemiarthroplasty(Right) - Derek Dumont MD Physical Therapy Treatment Note M2 PT-IP Current Condition Start: 11/09/17 15:54 Freq: NEEDED Status: Active Protocol: Document 11/09/17 14:50 MDD (Rec: 11/09/17 16:13 MDD [id number]) Physical Therapy Current Condition Current Condition Evaluation Date 11/09/17 Treatment Diagnosis s/p R hip fx Onset Date 11/08/17 Precautions Posterior Hip Precautions No Hip Flexion > 90 degrees No Hip Internal Rotation No Hip Adduction Weight Bearing Status Weight Bearing Status Weight Bear as Tolerated M3 PT-IP Subjective Start: 11/09/17 15:54 Freq: NEEDED Status: Active Protocol: Document 11/12/17 12:00 GGD (Rec: 11/12/17 12:11 GGD [id number]) Subjective Physical Therapy Visit Type Type Treatment Note Visit Start Time 11:30 Visit Stop Time 12:00 Number of ADVERTISING STATISTICAL CLERK Visits 3 Physical Therapy Visit Comments Patient Comments Pt states that he is willing to get up for lunch. Therapy Pain Assessment Pain When Pain Assessed At Rest Pain Present Pain Present Pain Reported Location Right Hip Intensity 3 Scale Used Numeric (1 - 10) M4 PT-IP Mobility and Gait Start: 11/09/17 15:54 Freq: NEEDED Status: Active Protocol: Document 11/12/17 12:00 GGD (Rec: 11/12/17 12:11 GGD [id number]) PT-Bed Mobility Assessment Supine to Sit Supine to Sit Moderate Assistance Bedrails Scooting Scooting to Edge of Bed Contact Guard Assistance PT-Transfer Assessment Sit to and From Stand Sit to and from Stand Minimal Assistance 1 Person Assistance Use of Upper Extremities Equipment Transfer Assistive Device Gait Belt Front Wheeled Walker Comments Mobility Comments bed mobility with log roll to the right with pillow between knees, mod cues and min A. Gait Assessment Gait Gait Assistance Required: Contact Guard Assist Distance (Feet) (feet) 200 Assistive Devices Assistive Device Gait Belt Front Wheeled Walker Gait Deviations General Gait Pattern Antalgic Decreased Stride Length Step-to Gait Factors Limiting Gait Function Factors Limiting Gait Function Decreased Strength Limited Range of Motion Pain Poor Balance M5 PT-IP Objective Assessments Start: 11/09/17 15:54 Freq: NEEDED Status: Active Protocol: Document 11/09/17 14:50 MDD (Rec: 11/09/17 16:13 MDD [id number]) Orientation Orientation/Cognition Level of Alertness Alert Orientation Name Age Place Situation Language Function Ability No Deficits Noted Safety Awareness Understands Safety Issues Memory Description No Deficits Noted Gross Range of Motion Lower Extremity ROM Assessment Within Functional Limits Strength Lower Extremity Strength Assessment Within Functional Limits Sensation Assessment Sensation Gross Sensation WNL M6 PT-IP Treatment Start: 11/09/17 15:54 Freq: NEEDED Status: Active Protocol: Document 11/12/17 12:00 GGD (Rec: 11/12/17 12:11 GGD [id number]) Physical Therapy Treatment Exercises Exercises Ankle Pumps Gluteal Sets Education Education Provided Precautions M7 PT-IP Assessment and Plan Start: 11/09/17 15:54 Freq: NEEDED Status: Active Protocol: Document 11/12/17 12:00 GGD (Rec: 11/12/17 12:11 GGD [id number]) PT Summary Assessment and Plan Summary Assessment Summary Pt improving with bed mobility . He need Mod A, but with head of bed flat. He did need min A for sit to stand. Frequency of Treatment Frequency Of Treatment Twice a Day Treatment Plan Physical Therapy Treatment Plan Bed Mobility Training Transfer Training Gait Training Therapeutic Exercise Post Op Education Recommendations To Nursing Amount of Assist Needed 2 Person Assist Discharge Recommendations PT Discharge Recommendations SNF Rehab
[2017-11-12 12:30] VITALS: BP 114/68; PULSE 90; RESP 16; TEMP 36.9; O2SAT 99
--- NOTE | 2017-11-12 14:35 | PT.IPTN ---
Current Diagnoses Hypo-osmolality and hyponatremia (11/07/17) Fracture of unspecified part of neck of right femur, initial encounter for closed fracture (11/07/17) Surgery Performed Operation Date: 11/08/17 11:00 Actual Procedures p Hip Hemiarthroplasty(Right) - Derek Dumont MD Physical Therapy Treatment Note M2 PT-IP Current Condition Start: 11/09/17 15:54 Freq: NEEDED Status: Active Protocol: Document 11/09/17 14:50 MDD (Rec: 11/09/17 16:13 MDD [id number]) Physical Therapy Current Condition Current Condition Evaluation Date 11/09/17 Treatment Diagnosis s/p R hip fx Onset Date 11/08/17 Precautions Posterior Hip Precautions No Hip Flexion > 90 degrees No Hip Internal Rotation No Hip Adduction Weight Bearing Status Weight Bearing Status Weight Bear as Tolerated M3 PT-IP Subjective Start: 11/09/17 15:54 Freq: NEEDED Status: Active Protocol: Document 11/12/17 14:35 GGD (Rec: 11/12/17 15:16 GGD [id number]) Subjective Physical Therapy Visit Type Type Treatment Note Visit Start Time 14:05 Visit Stop Time 14:35 Total Visit Minutes 30 Number of WORKFORCE DEVELOPMENT PROGRAM DIRECTOR Visits 4 Physical Therapy Visit Comments Patient Comments Pt states that he ready to walk. Therapy Pain Assessment Pain When Pain Assessed At Rest Pain Present Pain Present Pain Reported M4 PT-IP Mobility and Gait Start: 11/09/17 15:54 Freq: NEEDED Status: Active Protocol: Document 11/12/17 14:35 GGD (Rec: 11/12/17 15:16 GGD [id number]) PT-Bed Mobility Assessment Supine to Sit Supine to Sit Minimal Assistance Bedrails Sit to Supine Sit to Supine Moderate Assistance 1 Person Assistance Bedrails Scooting Scooting to Edge of Bed Standby Assistance PT-Transfer Assessment Sit to and From Stand Sit to and from Stand Contact Guard Assistance 1 Person Assistance Use of Upper Extremities Equipment Transfer Assistive Device Gait Belt Front Wheeled Walker Comments Mobility Comments bed mobility with log roll to the right with pillow between knees, mod cues and min A. Gait Assessment Gait Gait Assistance Required: Contact Guard Assist Distance (Feet) (feet) 200 Assistive Devices Assistive Device Gait Belt Front Wheeled Walker Gait Deviations General Gait Pattern Antalgic Decreased Stride Length Step-to Gait Factors Limiting Gait Function Factors Limiting Gait Function Decreased Strength Limited Range of Motion Pain Poor Balance M5 PT-IP Objective Assessments Start: 11/09/17 15:54 Freq: NEEDED Status: Active Protocol: Document 11/09/17 14:50 MDD (Rec: 11/09/17 16:13 MDD [id number]) Orientation Orientation/Cognition Level of Alertness Alert Orientation Name Age Place Situation Language Function Ability No Deficits Noted Safety Awareness Understands Safety Issues Memory Description No Deficits Noted Gross Range of Motion Lower Extremity ROM Assessment Within Functional Limits Strength Lower Extremity Strength Assessment Within Functional Limits Sensation Assessment Sensation Gross Sensation WNL M6 PT-IP Treatment Start: 11/09/17 15:54 Freq: NEEDED Status: Active Protocol: Document 11/12/17 14:35 GGD (Rec: 11/12/17 15:16 GGD [id number]) Physical Therapy Treatment Exercises Exercises Ankle Pumps Gluteal Sets Education Education Provided Precautions M7 PT-IP Assessment and Plan Start: 11/09/17 15:54 Freq: NEEDED Status: Active Protocol: Document 11/12/17 14:35 GGD (Rec: 11/12/17 15:16 GGD [id number]) PT Summary Assessment and Plan Summary Assessment Summary Pt improving with gait. He still needs assist with bed mobility. LE assist with sit to supine and UE and LE with supine to sit. He needs cues for safety and precutions with mobility. Frequency of Treatment Frequency Of Treatment Twice a Day Treatment Plan Physical Therapy Treatment Plan Bed Mobility Training Transfer Training Gait Training Therapeutic Exercise Post Op Education Recommendations To Nursing Amount of Assist Needed 1 Person Assist Discharge Recommendations PT Discharge Recommendations SNF Rehab
[2017-11-12 15:24] VITALS: BP 153/84; PULSE 84; RESP 18; TEMP 36.9; O2SAT 95
--- NOTE | 2017-11-12 17:02 | PC.NURSE ---
Jennifer shift note: Patient awake and alert, up out of bed to chair for dinner. Was able to move out of bed with very minimal assistance and safely, used FFW for stability and ambulated to chair. Denied pain at rest and minimal discomfort with activity, declined pain medication. Dressing to left hip, CDI changed on previous shift. BA active and call light within reach.
--- NOTE | 2017-11-12 17:06 | OT.IP.TRT ---
Current Diagnoses Hypo-osmolality and hyponatremia (11/07/17) Fracture of unspecified part of neck of right femur, initial encounter for closed fracture (11/07/17) Surgery Performed Operation Date: 11/08/17 11:00 Actual Procedures p Hip Hemiarthroplasty(Right) - Derek Dumont MD Occupational Therapy Treatment Note M2 OT-IP Current Condition Start: 11/10/17 16:37 Freq: Status: Active Protocol: Document 11/10/17 16:38 PJM (Rec: 11/10/17 16:54 PJM [id number]) Occupational Therapy Current Condition Current Condition Evaluation Date 11/10/17 Treatment Diagnosis decreased self care and functional mobility s/p RTHA for femoral neck fx Diagnosis Onset Date 11/09/17 Post Operative Precautions Posterior Hip Precautions No Hip Flexion > 90 degrees No Hip Internal Rotation No Hip Adduction Weight Bearing Status Weight Bearing Status Weight Bear as Tolerated M3 OT- IP Subjective and Pain Start: 11/10/17 16:37 Freq: Status: Active Protocol: Document 11/12/17 17:04 CCC (Rec: 11/12/17 17:06 CCC [id number]) OT- Subjective Occupational Therapy Visit Type Type Patient Unavailable Notes Checked on Pt at 1600pm and still wanting to sleep, but agreeable to get up later. Check pt at 5pm and already up to the recliner and eating dinner.
[2017-11-12] MEDS: SODIUM CHLORIDE 0.9% 1,000 ML 150 ML IV (17:35)
[2017-11-12 20:36] VITALS: BP 119/67; PULSE 112; RESP 20; TEMP 38.1; O2SAT 96
[2017-11-12] MEDS: DOCUSATE 250 MG CAPSULE PO (21:44)
--- NOTE | 2017-11-12 23:15 | P.PN_ITS ---
Subjective Date Patient Seen: 11/12/17 Time Patient Seen: 14:47 Interval history: History of present illness Follow-up on patient with hyponatremia I suspect secondary to reset Osmostat patient with right femoral neck fracture Review of systems Patient notes feeling better. No chest pain or shortness of breath or nausea Exam Vital Signs (past 8 hours): - 11/12/17 15:24 11/12/17 20:36 Temperature 98.4 F 100.6 F H Pulse Rate 84 112 H Respiratory Rate 18 20 Blood Pressure 153/84 H 119/67 Pulse Oximetry 95 96 Fraction of Inspired Oxygen 21 Oxygen Delivery Method Room Air Oxygen Flow Rate 0 Narrative Exam Narrative: General appearance Patient has observed sitting in his chair eating his meals without assistance. He is in a very good mood. Psychiatric Patient is well-oriented mood is pleasant affect is appropriate Skin No rashes or lesions evident Respiratory Lungs fairly clear to auscultation with no wheezes and no crackles Cardiovascular Regular rate rhythm no murmurs noted GI Abdomen is soft nontender positive bowel sounds no masses no bruits Neurologic No focal neurologic changes cranial nerves 2-12 are grossly intact Objective Labs Result Diagrams: 11/12/17 05:36 11/12/17 05:36 Labs: Laboratory Results - last 24 hr 11/12/17 11/12/17 05:36 05:36 WBC 9.8 RBC 3.06 L Hgb 9.1 L Hct 26.5 L MCV 86.6 MCH 29.6 MCHC 34.2 RDW 13.6 Plt Count 169 Neut % (Auto) 69.0 Lymph % (Auto) 12.3 L [place] % (Auto) 12.0 Eos % (Auto) 6.0 H Baso % (Auto) 0.7 Neut # (Auto) 6800 H Sodium 124 L Potassium 4.0 Chloride 91 L Carbon Dioxide 29 BUN 15 Creatinine 0.80 Estimated GFR > 60.0 BUN/Creatinine Ratio 18.8 Glucose 107 Calcium 7.8 L Total Bilirubin 0.6 AST 69 H ALT 37 Alkaline Phosphatase 41 Total Protein 5.0 L Albumin 2.5 L Globulin 2.5 Albumin/Globulin Ratio 1.0 Assessment & Plan Plan: Assessment/Plan Narrative: 1. Right femoral neck fracture after a fall. s/p OR/IF November 08. POD #2 today. Patient continues to note the pain is tolerable. Orthopedic consultation indicates patient is cleared from their standpoint to return to nursing facility 2. History of coronary artery disease: Continue metoprolol 75 mg bid, losartan 50 mg once qd and 81 mg aspirin daily 3. Hyperlipidemia: Atorvastatin 40 mg q.h.s. 4. Hypothyroidism: Synthroid 125 mcg daily 5. Hypertension: Metoprolol and Losartan per outpatient dosing 6. Hyponatremia sodium level November 11 was 127 and prior day the sodium was 130. Earlier in hospital course the serum sodium level was 123, which it was yesterday. Potential causes of hyponatremia include hypothyroidism so I requested TSH and reflex T4 to investigate further. I also ordered a urine sodium and urine osmolality if patient is appropriately handling the hyponatremia the urine sodium concentration should be less than 20. On review the TSH is normal. The reported urine sodium was 24 and near to the desired value of 20. Will continue the same IV fluids and repeat labs in AM. 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 Respiratory crackles noted on auscultation bilateral. Patient notes smoking history many years ago patient is unaware of any history of COPD or emphysema. No history of pulmonary fibrosis. November 09 BNP and PA/LAT CXR notes a relatively normal value for BNP and Chest x-RAY notes no acute pulm process and no CHF. Discussion on Hyponatremia: Low urine sodium (<25 mEq/L) ? The urine sodium concentration is usually below 25 mEq/L in patients with hypovolemia caused by gastrointestinal fluid losses ( eg, diarrhea), by movement of fluid into the third space (eg, pancreatitis), and by renal fluid losses due to diuretics if the measurement is performed AFTER the effect of the diuretic HAS ABATED. High urine sodium and chloride (>40 mEq/L) ? The sodium and chloride concentrations are usually above 40 mEq/L in hypovolemic hyponatremic patients with renal salt losses. This is most commonly seen with diuretic therapy if the urine electrolytes are measured while the effect of the diuretic is still present. Renal fluid loss with hyponatremia may also result from primary adrenal insufficiency (in which there is deficiency of both cortisol and aldosterone) and cerebral salt wasting (in which the mechanism of renal salt wasting is poorly understood). A low urine sodium (<25 mEq/L) with a low urine osmolality (<100 mosmol/kg) can be seen in the following settings: Primary polydipsia, Malnutrition, Reset osmostat and surreptitious diuretic use. Points to consider: 1. The urine may also be dilute if it is measured after the reason for ADH release has been corrected. 2. Reset osmostat, in which a water load appropriately suppresses ADH release but at a lower serum osmolality than in normal individuals. As in patients with SIADH, the urine osmolality and urine sodium will be high in patients with reset osmostat if they are measured when water intake is restricted; the urine osmolality and urine sodium will be low if measured immediately after water is ingested.However, once the serum sodium concentration has increased to a level above the threshold that stimulates ADH release, the urine osmolality and urine sodium concentrations will again be high. The major clinical clue to the presence of this disorder, which presents with clinical features similar to the SIADH, is a moderately reduced plasma sodium concentration (usually between 125 and 135 mEq/L) that is stable on multiple measurements. As in patients with SIADH, urine sodium excretion matches sodium intake in patients with reset osmostat. Discharge planning Will probably discharge the patient tomorrow back to his intermediate tomorrow November 13. Time Spent With Patient Time with patient: 25 - 35 minutes Quality VTE Deep Vein Thrombosis/Pulmonary Embolism Present on Admission: No
[2017-11-12 23:48] VITALS: BP 121/60; PULSE 84; RESP 16; TEMP 36.9; O2SAT 97
[2017-11-13 06:27] VITALS: BP 130/68; PULSE 73; RESP 16; TEMP 36.8; O2SAT 97
[2017-11-13 08:00] VITALS: BP 147/82; PULSE 81; RESP 16; TEMP 36.7; O2SAT 97
[2017-11-13] MEDS: ENOXAPARIN 30 MG/0.3 ML SYRINGE SUBCUT (08:29)
[2017-11-13] MEDS: PREGABALIN 75 MG CAPSULE 150 MG PO (08:29)
[2017-11-13] MEDS: DOCUSATE 100 MG CAPSULE PO (08:29)
[2017-11-13] MEDS: ASPIRIN EC 81 MG TABLET PO (08:29)
[2017-11-13] MEDS: SODIUM CHLORIDE 0.9% FLUSH 10 ML IV (08:30)
[2017-11-13] MEDS: HYDROCODONE/ACET 5/325 TABLET 1 TAB PO (08:31)
[2017-11-13 09:39] LABS: BUN Creatinine Ratio 18.8 (6-22); Blood Urea Nitrogen 15 mg/dL (9-20); Calcium 8.3 mg/dL (8.4-10.2); Carbon Dioxide 28 mmol/L (22-32); Chloride 91 mmol/L (98-107); Estimated Glomerular Filt Rate > 60.0 mL/min (>60); Glucose 121 mg/dL (80-110); HEMOLYSIS < 15 (0-50); Potassium 3.9 mmol/L (3.4-5.1); Sodium 126 mmol/L (137-145)
--- NOTE | 2017-11-13 11:11 | CM.DPC ---
Discharge Planning/Care Management Discharge/cont: Per MD patient to discharge to [facility] today. Met with patient: patient remains agreeable to discharge plan to [facility]. Patient has no concerns at this time. Called [facility]via: able to worm picker at 1145. Patient and RN notified. SW faxed PASRR and signed med red to [facility]. Plan: Discharge to [facility] today at 1145. 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 Prior Living Arrangements House Household Members spouse family Type of transporation used prior to Drives own vehicle admit Independent with ADL's Yes Is patient alert and oriented? Yes Caregiver for Another No DME Already Rented / Owned Crutches Patient Discharge Plan Description [facility] Facility Referrals Initiated [facility] Discharge Plan [facility] Facility Additional Comment [facility] at 1145 today If patient plan is SNF: Has PASSR been Yes completed? If Pt is MCR-Have 3 Inpt. midnights been Yes confirmed with UR? Review Status Complete Next Review Type Discharge Review
--- NOTE | 2017-11-13 11:37 | PC.NURSE ---
Pt showered and ready to go to [facility]. Report called to Silvia BARKER at [facility] and all questions answered. No further questions.
--- NOTE | 2017-11-13 11:40 | PT.IPTN ---
Current Diagnoses Hypo-osmolality and hyponatremia (11/07/17) Fracture of unspecified part of neck of right femur, initial encounter for closed fracture (11/07/17) Surgery Performed Operation Date: 11/08/17 11:00 Actual Procedures p Hip Hemiarthroplasty(Right) - Derek Dumont MD Physical Therapy Treatment Note M2 PT-IP Current Condition Start: 11/09/17 15:54 Freq: NEEDED Status: Active Protocol: Document 11/09/17 14:50 MDD (Rec: 11/09/17 16:13 MDD [id number]) Physical Therapy Current Condition Current Condition Evaluation Date 11/09/17 Treatment Diagnosis s/p R hip fx Onset Date 11/08/17 Precautions Posterior Hip Precautions No Hip Flexion > 90 degrees No Hip Internal Rotation No Hip Adduction Weight Bearing Status Weight Bearing Status Weight Bear as Tolerated M3 PT-IP Subjective Start: 11/09/17 15:54 Freq: NEEDED Status: Active Protocol: Document 11/13/17 10:30 GGD (Rec: 11/13/17 11:40 GGD [id number]) Subjective Physical Therapy Visit Type Type Treatment Note Visit Start Time 10:00 Visit Stop Time 10:30 Total Visit Minutes 30 Number of MANAGER AGRICULTURE Visits 5 Physical Therapy Visit Comments Patient Comments Pt hopes to D/C today. Therapy Pain Assessment Pain When Pain Assessed At Rest Pain Present Pain Present Pain Reported Location Right Hip Intensity 4 Scale Used Numeric (1 - 10) M4 PT-IP Mobility and Gait Start: 11/09/17 15:54 Freq: NEEDED Status: Active Protocol: Document 11/13/17 10:30 GGD (Rec: 11/13/17 11:40 GGD [id number]) PT-Bed Mobility Assessment Supine to Sit Supine to Sit Minimal Assistance Bedrails Scooting Scooting to Edge of Bed Standby Assistance PT-Transfer Assessment Sit to and From Stand Sit to and from Stand Contact Guard Assistance 1 Person Assistance Use of Upper Extremities Equipment Transfer Assistive Device Gait Belt Front Wheeled Walker Comments Mobility Comments bed mobility with log roll to the right with pillow between knees, mod cues and min A. Gait Assessment Gait Gait Assistance Required: Contact Guard Assist Distance (Feet) (feet) 200 Assistive Devices Assistive Device Gait Belt Front Wheeled Walker Gait Deviations General Gait Pattern Antalgic Decreased Stride Length Step-to Gait Factors Limiting Gait Function Factors Limiting Gait Function Decreased Strength Limited Range of Motion Pain Poor Balance Stair Climbing Assessment Evaluation Level of Assist On Stairs Contact Guard Assistance Devices Stair Climbing Assistive Devices Left Railing Right Railing Technique/Endurance Stair Climbing Direction Ascend and Descend Stair Climbing Technique Step to Step Number of Steps Climbed 3 Query Text: Stair Climbing Set # Repetitions (reps) 1 M5 PT-IP Objective Assessments Start: 11/09/17 15:54 Freq: NEEDED Status: Active Protocol: Document 11/09/17 14:50 MDD (Rec: 11/09/17 16:13 MDD [id number]) Orientation Orientation/Cognition Level of Alertness Alert Orientation Name Age Place Situation Language Function Ability No Deficits Noted Safety Awareness Understands Safety Issues Memory Description No Deficits Noted Gross Range of Motion Lower Extremity ROM Assessment Within Functional Limits Strength Lower Extremity Strength Assessment Within Functional Limits Sensation Assessment Sensation Gross Sensation WNL M6 PT-IP Treatment Start: 11/09/17 15:54 Freq: NEEDED Status: Active Protocol: Document 11/13/17 10:30 GGD (Rec: 11/13/17 11:40 GGD [id number]) Physical Therapy Treatment Exercises Exercises Ankle Pumps Gluteal Sets Education Education Provided Precautions M7 PT-IP Assessment and Plan Start: 11/09/17 15:54 Freq: NEEDED Status: Active Protocol: Document 11/13/17 10:30 GGD (Rec: 11/13/17 11:40 GGD [id number]) PT Summary Assessment and Plan Summary Assessment Summary Pt improving with gait and was safe with stairs. He still needs min to mod a for bed mobility. He improving with sit to stand and needing less assist. Frequency of Treatment Frequency Of Treatment Twice a Day Treatment Plan Physical Therapy Treatment Plan Bed Mobility Training Transfer Training Gait Training Therapeutic Exercise Post Op Education Recommendations To Nursing Amount of Assist Needed 1 Person Assist Discharge Recommendations PT Discharge Recommendations SNF Rehab
--- NOTE | 2017-11-13 12:20 | PC.NURSE ---
Pt out via w/c by [facility] transport personnel with all belongings.
--- NOTE | 2017-11-13 14:56 | PM.DS.1 ---
History of Present Illness Date Patient Seen: 11/13/17 Time Patient Seen: 11:56 Chief complaint: FALL RT HIP PAIN Narrative: History of present illness Patient is an 82 years of age male that is admitted to [facility] on November 09 with acute right femoral neck fracture. Patient also was noted to have hyponatremia during hospital course. Orthopedic surgery conducted an open reduction internal fixation surgical procedure. Discharge Providers Date of admission: 11/07/17 22:29 Primary care physician: SERGIO Hooper Consults: 11/08/17 14:10 Consult to Discharge Planning Routine Comment: Consult to Physical Therapy Evaluate & Treat Comment: Physician Instructions: post op MARLON protocol Consult to Respiratory Therapy Evaluate & Treat Comment: Physician Instructions: Evaluate and treat 11/10/17 15:13 Consult to Occupational Therapy Evaluate & Treat Comment: Physician Instructions: Evaluate and treat Discharge provider: Savage Wise MD Summary Discharge Diagnosis: 1. right femoral neck fracture status post open reduction internal fixation 2. 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 3. Hypothyroidism 4. Hospital Course: patient had a fairly uncomplicated hospital course. I did urine indices regarding the hyponatremia. Urine osmolality was low. Urine sodium was 24. IV saline was provided. Patient's serum sodium reached high of 130 then dropped back to 125 during hosp course. It appears patient has a reset Osmostat as cause of his hyponatremia. Orthopaedic surgeon indicated patient could be discharged to [facility] and was discharged as recommended. Status at Discharge Cognitive/behavioral status at discharge: patient is awake and alert and conversing with no difficulty. Well oriented. Good affect and mood. Functional status at discharge: wheelchair bound Overall status at discharge: patient is progressing back to baseline Time Spent with Patient Greater than 30 minutes Exam Vital Signs (past 8 hours): - 11/13/17 08:00 Temperature 98.1 F Pulse Rate 81 Respiratory Rate 16 Blood Pressure 147/82 H Pulse Oximetry 97 Fraction of Inspired Oxygen 21 Oxygen Delivery Method Room Air Oxygen Flow Rate 0 Narrative Exam Narrative: General awake and alert in no distress. well oriented Resp Clear to auscultation. no wheezing nor crackles Cardio RRR GI Benign and nontender. Objective Labs Result Diagrams: 11/12/17 05:36 11/13/17 09:15 Labs: Laboratory Results - last 24 hr 11/13/17 09:15 Sodium 126 L Potassium 3.9 Chloride 91 L Carbon Dioxide 28 BUN 15 Creatinine 0.80 Estimated GFR > 60.0 BUN/Creatinine Ratio 18.8 Glucose 121 H Calcium 8.3 L Discharge Plan Discharge Plan Patient Disposition: SNF Transfer to: [facility] Transportation: [facility] I certify the postop hospital detention care is medically necessary on a continuing basis for any conditions for which he/ she received care during this hospitalization.: Yes The receiving facility has agreed to accept transfer and provide medical treatment.: Yes Provider Discharge Instructions Diet: Diet as Tolerated Liquid consistency: Normal/Thin Food texture: Regular [facility] Rehab type: Physical therapy and Occupational therapy Discharge Data Primary Care Provider: Arpita Fall Attending Provider: Savage Wise Admit Date/Time: 11/07/17 22:29 Discharges patient from system. Discharge Date/Time: 11/13/17 12:21 Quality VTE Deep Vein Thrombosis/Pulmonary Embolism Present on Admission: No
[2017-11-16 15:25] LABS: Osmolality Urine 355
== END 2017-11-13 12:21 | DRG 470 ==
LOC: ED 21:34 → AC 22:30
PROVIDERS: Orthopaedic Surgery; Admitting Provider Internal Medicine; Emergency Provider Emergency Medicine; Family Provider Nurse Practitioner Gerontology; PCP Nurse Practitioner Gerontology; Visit Provider Internal Medicine
PROC: 0SRR0JZ Replacement of Right Hip Joint, Femoral Surface with Synthetic Substitute, Open Approach (ICD-10-PCS; CPT 27125; principal; 2017-11-08 11:00)
DX: S72.011A Unspecified intracapsular fracture of right femur, initial encounter for closed fracture (principal); E87.1 Hypo-osmolality and hyponatremia; W01.0XXA Fall on same level from slipping, tripping and stumbling without subsequent striking against object, initial encounter; Y92.9 Unspecified place or not applicable; I25.10 Atherosclerotic heart disease of native coronary artery without angina pectoris; E78.5 Hyperlipidemia, unspecified; E89.0 Postprocedural hypothyroidism; I10 Essential (primary) hypertension; Z93.6 Other artificial openings of urinary tract status; Z87.891 Personal history of nicotine dependence; R09.89 Other specified symptoms and signs involving the circulatory and respiratory systems
CPT/HCPCS: 36415; 36592; 71045; 72170; 73502; 80048; 80053; 83880; 83935; 84300; 84443; 85014; 85018; 85025; 94760; 94762; 96374; 96375; 96376; 97116; 97162; 97165; 97530; 97535; 99282; 99284; C1776; J0690; J1100; J1650; J2270; J2405; J2704; J3010

== ENCOUNTER → 2017-11-18 08:36 | Outpatient (REF) | payer SELFPAY ==
[2017-11-07 22:55] VITALS: BMI 25.5
[2017-11-18 09:08] LABS: Add Manual Diff / Slide Review NO; Basophils Percent Auto 1.2 % (0-2); Eosinophils Percent Auto 9.2 % (2-4); Hematocrit 28.8 % (41-53); Hemoglobin 9.8 g/dL (13.5-17.5); Lymphocytes Percent Auto 16.3 % (25-40); Mean Corpuscular HGB Conc 34.1 % (30-36); Mean Corpuscular Hemoglobin 29.6 PG (26-34); Mean Corpuscular Volume 86.8 fL (80-100); Monocytes Percent Auto 11.4 % (3-14); Neutrophils Absolute Auto 5200 /uL (3000-5900); Neutrophils Percent Auto 61.9 % (50-75); Platelet Count 461 X10^3/uL (150-400); Red Blood Cell Count 3.32 X10^6/uL (4.5-5.9); Red Cell Distribution Width 14.1 % (11.6-14.8); White Blood Cell Count 8.3 X10^3/uL (4.5-11.0)
[2017-11-18 09:44] LABS: Blood Urea Nitrogen 18 mg/dL (9-20); Calcium 8.4 mg/dL (8.4-10.2); Carbon Dioxide 31 mmol/L (22-32); Chloride 95 mmol/L (98-107); Estimated Glomerular Filt Rate > 60.0 mL/min (>60); Glucose 86 mg/dL (80-110); HEMOLYSIS < 15 (0-50); Potassium 4.3 mmol/L (3.4-5.1); Sodium 132 mmol/L (137-145)
== END ==
LOC: LAB 08:36
PROVIDERS: Family Provider Nurse Practitioner Gerontology; PCP Nurse Practitioner Gerontology; Visit Provider Internal Medicine
DX: E87.1 Hypo-osmolality and hyponatremia (principal); D64.9 Anemia, unspecified
CPT/HCPCS: 36415; 80048; 85025

== ENCOUNTER → 2017-11-25 09:44 | Outpatient (REF) | payer SELFPAY ==
[2017-11-07 22:55] VITALS: BMI 25.5
[2017-11-25 10:41] LABS: Hematocrit 34.5 % (41-53); Hemoglobin 11.4 g/dL (13.5-17.5)
== END ==
LOC: LAB 09:44
PROVIDERS: Family Provider Nurse Practitioner Gerontology; PCP Nurse Practitioner Gerontology; Visit Provider Internal Medicine
DX: D64.9 Anemia, unspecified (principal)
CPT/HCPCS: 36415; 85014; 85018

== ENCOUNTER 2018-06-11 20:30 | Observation (INO) | payer MEDICARE, OTHER, SELFPAY ==
--- NOTE | 2018-06-11 20:47 | ED_ITS ---
HPI - General Adult General Chief complaint: Recheck/Abnormal Lab/Rx Stated complaint: LOW SODIUM Time Seen by Provider: 06/11/18 20:46 Source: patient and family Mode of arrival: ambulatory Limitations: no limitations History of Present Illness HPI narrative: Patient is an 82-year-old male sent over by his rehabilitation liaison office. Patient stated that earlier today he had routine labs done ordered by his rehabilitation liaison. He stated that he received a call from his rehabilitation liaison's office telling him that his sodium was low and that he needed to come to the emergency department. It was reported that his sodium was 118 on this lab draw. Patient states that he has no symptoms. He states that he has had low sodium in the past. Patient states that he was told to stop his hydrochlorothiazide however he has already taken this medication today. Patient's states that for the past couple weeks she thought that he has been more unsteady on his feet and shuffling little bit more. Related Data Home Medications Medication Instructions Recorded Confirmed aspirin 1 tab PO DAILY 11/07/17 06/11/18 atorvastatin 1 tab PO DAILY 11/07/17 06/11/18 docusate calcium 1 cap PO QPM 11/07/17 06/11/18 levothyroxine 1 tab PO DAILY 11/07/17 06/11/18 losartan 1 tab PO DAILY 11/07/17 06/11/18 pregabalin 1 cap PO TID 11/07/17 06/11/18 amlodipine 1 tab PO DAILY 06/11/18 06/11/18 apixaban [Eliquis] 1 tab PO BID 06/11/18 06/11/18 diphenhydramine-acetaminophen 1 tab PO BEDTIME PRN 06/11/18 06/11/18 [Acetaminophen PM] docusate sodium 100 mg PO BID 06/11/18 06/11/18 meclizine 25 mg PO TID PRN 06/11/18 06/11/18 metoprolol succinate [Toprol XL] 1 tab PO DAILY 06/11/18 06/11/18 sennosides [senna] 8.6 mg PO BID 06/11/18 06/11/18 Allergies Allergy/AdvReac Type Severity Reaction Status Date / Time No Known Drug Allergies Allergy Verified 11/07/17 20:47 Review of Systems Constitutional Denies fever(s) and Denies headache(s) ENT Ears, Nose, Mouth, and Throat: Denies vertigo, Denies dizziness, Denies headache(s), Denies disequilibrium and Denies throat swelling Cardiovascular Denies chest pain and Denies dyspnea Respiratory Denies dyspnea Gastrointestinal Gastrointestinal: Denies abdominal pain and Denies change in stool character Genitourinary Denies dysuria Musculoskeletal Reports abnormal gait, Denies myalgias and Denies arthralgias Integumentary/Breasts Denies rash Neurologic Reports abnormal gait, Denies behavioral changes, Denies vertigo, Denies dizziness, Denies headache(s) and Denies disequilibrium Psychiatric Denies behavioral changes Hematologic/Lymphatic Comments: On Eliquis Allergic/Immunologic Denies throat swelling PFSH Social History household members: spouse and family Smoking Status: Former smoker alcohol intake: former substance use type: does not use Exam Initial Vital Signs Initial Vital Signs: Vital Signs Temperature 97.6 F 06/11/18 20:55 Pulse Rate 59 L 06/11/18 20:55 Respiratory Rate 15 06/11/18 20:55 Blood Pressure 146/63 H 06/11/18 20:55 Pulse Oximetry 99 06/11/18 20:55 Const General: cooperative, comfortable, well developed, well groomed and No acute distress Orientation: alert, awake and oriented x3 HENMT Head: normal to inspection and normocephalic Resp Effort & Inspection: normal respiratory effort Auscultation: clear to auscultation bilaterally Cardio Rate: bradycardic Rhythm: regular rhythm Pulses: radial pulses present GI Inspection: non-distended Palpation: soft Skin Lesions: no lesions Rashes: no rashes Neuro General: alert, awake and oriented x3 Cognition: normal cognition Speech: speech normal Gait: other (Had a slight shuffle with his gait) Extrem General: normal to inspection and capillary refill normal Psych Appearance: grossly normal and well kempt Course Orders Ordered: ED Orders 06/11/18 21:15 Basic Metabolic Panel Stat Complete Blood Count AUTO DIFF Stat 06/11/18 21:40 CT head/brain wo con Stat 06/11/18 23:16 Consult to Physician Routine Acetaminophen (Tylenol) 650 mg PO Q6HR PRN PRN Reason: As Needed for Fever/Mild Pain Sodium Chloride (Normal Saline 0.9%) 1,000 mls @ 75 mls/hr IV CONT FRED Last Admin: 06/12/18 00:24 Dose: 75 mls/hr Sodium Chloride (Normal Saline 0.9%) 1,000 mls @ 75 mls/hr IV CONT FRED Last Admin: 06/12/18 00:24 Dose: Not Given Ondansetron HCl (Zofran) 4 mg IV Q4HR PRN PRN Reason: Nausea And Vomiting Vital Signs - 8 hr 06/11/18 20:55 06/11/18 22:08 06/11/18 23:01 Temperature 97.6 F Pulse Rate 59 L 50 L 50 L Respiratory Rate 15 16 13 Blood Pressure 146/63 H Blood Pressure [Left Arm] 124/59 L 130/58 L Pulse Oximetry 99 99 98 06/12/18 00:18 Temperature 98.7 F Pulse Rate 50 L Respiratory Rate 16 Blood Pressure 150/68 H Blood Pressure [Left Arm] Pulse Oximetry 98 Medical Decision Making Lab Data Lab results reviewed: Yes I reviewed the patient's lab results. Result diagrams: 06/11/18 21:15 06/11/18 21:15 Lab Results 06/11/18 06/11/18 Range/Units 21:15 21:15 WBC 8.5 (4.5-11.0) X10^3/uL RBC 3.89 L (4.5-5.9) X10^6/uL Hgb 11.6 L (13.5-17.5) g/dL Hct 33.4 L (41-53) % MCV 85.8 (80-100) fL MCH 29.7 (26-34) PG MCHC 34.7 (30-36) % RDW 13.1 (11.6-14.8) % Plt Count 222 (150-400) X10^3/uL Neut % (Auto) 68.3 (50-75) % Lymph % (Auto) 13.6 L (25-40) % [place] % (Auto) 11.3 (3-14) % Eos % (Auto) 5.8 H (2-4) % Baso % (Auto) 1.0 (0-2) % Neut # (Auto) 5800 (3149-0511) /uL Lymph # (Auto) 1200 (2430-7790) /uL [place] # (Auto) 1000 H (0-900) /uL Eos # (Auto) 500 H (0-450) /uL Baso # (Auto) 100 (0-100) /uL Sodium 119 L* (137-145) mmol/L Potassium 4.2 (3.4-5.1) mmol/L Chloride 80 L (98-107) mmol/L Carbon Dioxide 29 (22-32) mmol/L BUN 19 (9-20) mg/dL Creatinine 0.90 (0.66-1.25) mg/dL Estimated GFR > 60.0 (>60) mL/min BUN/Creatinine Ratio 21.1 (6-22) Glucose 116 H (80-110) mg/dL Calcium 8.7 (8.4-10.2) mg/dL Imaging Data CT scan - head: Radiologist's impression: Moderate atrophy. No acute intracranial findings. Sinusitis MDM Narrative Medical decision making narrative: Patient's sodium is low today. He is asymptomatic other than the reports from his that he may be shuffling with his walking over the past couple weeks. He has been on hydrochlorothiazide which he was told to stop today. Patient does not appear to be dehydrated. Kidney functions unremarkable. Head CT unremarkable. Discussed case with Dr. Melgar hospitalist on this evening who accepts the patient for admission for continued evaluation. Discussed the admission with the patient and his family. They all expressed understanding and agreement plan. Discharge Plan Departure Patient Disposition: Admitted as Observation Clinical Impression: Hyponatremia Discharge Date/Time: 06/12/18 00:02 Interventions: ED Discharge Assessment Last Done: 06/12/18 00:01 Admit Date/Time: 06/11/18 23:31 Admit Provider: Kailee Melgar
[2018-06-11 20:55] VITALS: BP 146/63; PULSE 59; RESP 15; TEMP 36.4; O2SAT 99; BMI 26.2
[2018-06-11 21:27] LABS: Add Manual Diff / Slide Review NO; Basophils Absolute Auto 100 /uL (0-100); Eosinophils Absolute Auto 500 /uL (0-450); Eosinophils Percent Auto 5.8 % (2-4); Hematocrit 33.4 % (41-53); Hemoglobin 11.6 g/dL (13.5-17.5); Lymphocytes Absolute Auto 1200 /uL (1100-4500); Lymphocytes Percent Auto 13.6 % (25-40); Mean Corpuscular HGB Conc 34.7 % (30-36); Mean Corpuscular Hemoglobin 29.7 PG (26-34); Mean Corpuscular Volume 85.8 fL (80-100); Monocytes Absolute Auto 1000 /uL (0-900); Monocytes Percent Auto 11.3 % (3-14); Neutrophils Absolute Auto 5800 /uL (1500-7000); Neutrophils Percent Auto 68.3 % (50-75); Platelet Count 222 X10^3/uL (150-400); Red Blood Cell Count 3.89 X10^6/uL (4.5-5.9); Red Cell Distribution Width 13.1 % (11.6-14.8); White Blood Cell Count 8.5 X10^3/uL (4.5-11.0)
[2018-06-11 21:36] LABS: BUN Creatinine Ratio 21.1 (6-22); Blood Urea Nitrogen 19 mg/dL (9-20); Calcium 8.7 mg/dL (8.4-10.2); Carbon Dioxide 29 mmol/L (22-32); Chloride 80 mmol/L (98-107); Estimated Glomerular Filt Rate > 60.0 mL/min (>60); Glucose 116 mg/dL (80-110); HEMOLYSIS 43 (0-50); Potassium 4.2 mmol/L (3.4-5.1)
[2018-06-11 21:38] LABS: Sodium 119 mmol/L (137-145)
--- NOTE | 2018-06-11 21:40 | DI.CT.S_ITS ---
PROCEDURE: CT HEAD/BRAIN WO CON INDICATIONS: Hyponatremia with balance issues TECHNIQUE: Noncontrast 4.5 mm thick angled axial sections acquired from the foramen magnum to the vertex, with coronal and sagittal reformats. For radiation dose reduction, the following was used: automated exposure control, adjustment of mA and/or kV according to patient size. COMPARISON: , CT, HEAD WITHOUT CONTRAST, 05/06/2014, 13:44. FINDINGS: Image quality: Excellent. CSF spaces: Basal cisterns are patent. No extra-axial fluid collections. The ventricles are symmetric in size and shape. Brain: No intracranial bleeds or masses. There is moderate cerebral volume loss for age, with resultant ventricular and sulcal prominence. There are periventricular and deep white matter chronic small vessel ischemic changes. There is intracranial internal carotid artery atherosclerosis. Skull and face: Calvarium and visualized facial bones appear intact, without suspicious lesions. Sinuses: There is opacification of the left maxillary sinus. This finding is similar in extent to the study dated 05/06/14. Mucoperiosteal reaction is noted. Visualized sinuses and mastoids are otherwise clear. IMPRESSION: 1. No acute intracranial findings. 2. Chronic left maxillary sinusitis. These findings are concordant with the overnight interpretation. Dictated by: Rosa Isela Murphy M.D. on 06/12/2018 at 8:11 Approved by: Rosa Isela Murphy M.D. on 06/12/2018 at 8:13
[2018-06-11 22:08] VITALS: BP 124/59; PULSE 50; RESP 16; O2SAT 99
[2018-06-11 23:01] VITALS: BP 130/58; PULSE 50; RESP 13; O2SAT 98
[2018-06-12] VITALS (11 sets, daily range): BP systolic 110–150; BP diastolic 63–73; PULSE 50–65; RESP 12–20; TEMP 36.2–37.1; O2SAT 95–99; BMI 26.2
[2018-06-12] MEDS: SODIUM CHLORIDE 0.9% 1,000 ML 75 ML IV (00:24)
--- NOTE | 2018-06-12 03:17 | PC.NURSE ---
0000- Pt arrived to unit safely from ED; admitted for hyponatremia episode w/ Na+ level of 119 (this is a chronic issue for this pt). Walking independently, denies the need for walker or cane; pt reports he has had a few falls at home recently. Non-skid socks placed, call light in reach, bed alarm on. 0030- NS infusion started at ordered rate. Telemetry in place, pt is sinus jacobo. Chronic urostomy in place w/ pale yellow urine present. 0600- IV fluids cont to run into patent periph IV. Pt called about bringing in nasal spray that he uses at home, will pass on to oncoming RN.
--- NOTE | 2018-06-12 09:04 | CM.DANOTE ---
Addendum entered by Latricia Hernandez R.N. 06/12/18 09:58: Went ahead and put in physical and occupational orders, had discussed this with Dr. Linn, secondary to shuffling gait, unsteadiness. Original Note: DCP: Case received, EMR reviewed and met with patient. Introduced self and role. DCP template completed with information currently available. Patient is an 82 year old male who admitted yesterday evening to the care of the hospitalist team. PCP: SERGIO Hooper. Payer: confirmed; Medicare/[employer]. Patient came to hospital via family vehicle referred by his rate clerk, Dr. Mistry. Patient had been in the office, and had a sodium level of 118. Met with patient, alert and oriented, pleasant demeanor. Lives in [place] with his spouse, Yael. He stated that he is independent at home, has been driving. Uses a cane to get around. Patient stated, he didn't notice any symptoms having low sodium. Looking at notes, has expressed some concerns with him having increased shuffling gait, and some unsteadiness. P: DCP to follow closely. May be able to go home when medically stable, and if he has any difficulties with his ambulation, will consult with physical therapy. Latricia Hernandez RN/Desk Monitor
--- NOTE | 2018-06-12 10:16 | PM.HP.1 ---
History of Present Illness Date Patient Seen: 06/12/18 Time Patient Seen: 10:16 Chief complaint: LOW SODIUM Narrative: This is an 82-year-old male with a sodium level of 118 secondary to hydrochlorothiazide. Cardiology had started him on hydrochlorothiazide several months ago and on routine potassium/sodium surveillance he was noted to have a level of 118 yesterday. He was directed to come to the emergency department where his level was found to be 119. This morning, after receiving IV normal saline overnight it is up to 121. He has had no symptoms. Cardiology is treating him for hypertension. He has trace edema. There is no chest pain, palpitations, admitted weakness or syncope. His reported to the emergency department physician that he had been somewhat unsteady on his feet but he does not endorse that. Patient History Medical History Hyponatremia (Acute) Bladder cancer (Acute) Coronary artery disease (Acute) Hypertension (Acute) Hypothyroid (Acute) Kidney stones (Acute) Prostate cancer (Acute) Thyroid cancer (Acute) Surgical History H/O colectomy (Acute) H/O thyroidectomy (Acute) History of appendectomy (Acute) History of urostomy (Acute) Social History household members: spouse and family Smoking Status: Former smoker alcohol intake: former substance use type: does not use Comment: Bladder removal Ileal conduit surgery Prostatectomy Right hemicolectomy Family & Social History Family History Father Alcoholism Mother Alcoholism Social History: household members spouse,family Prior Living Arrangements Apartment/Condo Safety & Behavioral: Feels Safe in Current Yes Environment Been Physically Hurt or No Threatened By a Person Suicidal Ideation Description None Suicide Plan Description No Plan Tobacco & Substance use: Smoking Status Former smoker alcohol intake former alcohol intake frequency holiday/special occasion Substance Use Type does not use Comment: He lives with his in [place]. 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 Meds Home Medications Medication Instructions Recorded Confirmed Type aspirin 1 tab PO DAILY 11/07/17 06/11/18 History atorvastatin 1 tab PO DAILY 11/07/17 06/11/18 History docusate calcium 1 cap PO QPM 11/07/17 06/11/18 History levothyroxine 1 tab PO DAILY 11/07/17 06/11/18 History losartan 1 tab PO DAILY 11/07/17 06/11/18 History pregabalin 1 cap PO TID 11/07/17 06/11/18 History amlodipine 1 tab PO DAILY 06/11/18 06/11/18 History apixaban [Eliquis] 1 tab PO BID 06/11/18 06/11/18 History diphenhydramine-acetaminophen 1 tab PO BEDTIME PRN 06/11/18 06/11/18 History [Acetaminophen PM] docusate sodium 100 mg PO BID 06/11/18 06/11/18 History meclizine 25 mg PO TID PRN 06/11/18 06/11/18 History metoprolol succinate [Toprol XL] 1 tab PO DAILY 06/11/18 06/11/18 History sennosides [senna] 8.6 mg PO BID 06/11/18 06/11/18 History Allergies Allergy/AdvReac Type Severity Reaction Status Date / Time No Known Drug Allergies Allergy Verified 11/07/17 20:47 Review of Systems Review of Systems Denies weakness, chest pain, shortness of breath, edema, nausea, vomiting, abdominal pain, coughing, bleeding, rashes, seizures, headaches, new allergies, trouble talking. All systems reviewed & are unremarkable except as noted in HPI and below Exam Vital Signs (past 8 hours): - 06/12/18 05:00 06/12/18 07:50 Temperature 97.3 F L 97.1 F L Pulse Rate 50 L 54 L Respiratory Rate 12 18 Blood Pressure 138/70 145/73 H Pulse Oximetry 97 95 Oxygen Delivery Method Room Air Oxygen Flow Rate 0 Narrative Exam Narrative: He is alert and oriented x3. No apparent distress Pupils are equally round and reactive to light and accommodation. Extraocular muscles are intact. Cranial nerves 2-12 tested intact. There is no thyromegaly. No lymph nodes are felt head, neck, supraclavicular area. JVD is less 6 cm. No carotid bruits are heard. Heart is regular rate and rhythm without murmur. Lungs is left basilar crackles otherwise clear. Abdomen is soft, bowel sounds positive, nontender, no organomegaly, there is a urostomy present. Extremities have trace bilateral pitting ankle edema. Neuro exam. Cranial nerves 2-12 tested intact. Motor function is 5/5 throughout. There is no tremor. Gait and balance appear to be at baseline. Skin has no rash. There are bruises on both arms. Objective Labs Result Diagrams: 06/11/18 21:15 06/12/18 11:30 Labs: Laboratory Results - last 24 hr 06/11/18 06/11/18 21:15 21:15 WBC 8.5 RBC 3.89 L Hgb 11.6 L Hct 33.4 L MCV 85.8 MCH 29.7 MCHC 34.7 RDW 13.1 Plt Count 222 Neut % (Auto) 68.3 Lymph % (Auto) 13.6 L [place] % (Auto) 11.3 Eos % (Auto) 5.8 H Baso % (Auto) 1.0 Neut # (Auto) 5800 Lymph # (Auto) 1200 [place] # (Auto) 1000 H Eos # (Auto) 500 H Baso # (Auto) 100 Sodium 119 L* Potassium 4.2 Chloride 80 L Carbon Dioxide 29 BUN 19 Creatinine 0.90 Estimated GFR > 60.0 BUN/Creatinine Ratio 21.1 Glucose 116 H Calcium 8.7 Assessment & Plan Assessment & Plan narrative: 1 - Iatrogenic hyponatremia -continue IV normal saline and recheck sodium level tomorrow. It has come up slowly as preferred from 118, then 119 and now 121. -the hydrochlorothiazide will be stopped and not resumed. 2 - Coronary artery disease/hypertension -he is asymptomatic -continue aspirin, atorvastatin, amlodipine, Eliquis, losartan and metoprolol. -follow up blood pressure with Doctor Ami 3 - Chronic urostomy/ileal conduit -this is stable. His surgeries were in 1996. 4 - History of prostate cancer -this is stable 5 - History of thyroid cancer - this is stable, he remains on levothyroxine. His surgery was in 2004. 6 - History of bladder cancer -functioning ileal conduit urostomy. 7 - Painful peripheral neuropathy -continue Lyrica. 8 - Hypothyroidism -continue levothyroxine. 9 - Hyperlipidemia -continue atorvastatin. 10 - Eliquis therapy -it is not clear whether he is on this for paroxysmal atrial fibrillation, history of blood clot, etc. None of those are actually listed in the available records. Quality VTE Deep Vein Thrombosis/Pulmonary Embolism Present on Admission: No
[2018-06-12] MEDS: LOSARTAN 50 MG TABLET PO (11:05)
[2018-06-12] MEDS: PREGABALIN 75 MG CAPSULE 150 MG PO ×3 (11:05→21:46)
[2018-06-12] MEDS: ASPIRIN EC 81 MG TABLET PO (11:05)
[2018-06-12] MEDS: APIXABAN 5 MG TABLET PO ×2 (11:05→21:45)
[2018-06-12] MEDS: LEVOTHYROXINE 125 MCG TABLET PO (11:05)
[2018-06-12] MEDS: METOPROLOL ER 25 MG TABLET PO (11:06)
[2018-06-12] MEDS: ATORVASTATIN 20 MG TABLET 40 MG PO (11:06)
[2018-06-12] MEDS: SENNOSIDES 8.6 MG TABLET PO ×2 (11:06→21:45)
[2018-06-12] MEDS: AMLODIPINE 5 MG TABLET 10 MG PO (11:07)
--- NOTE | 2018-06-12 11:24 | PC.NURSE ---
Addendum entered by Thang Ramey R.N. 06/12/18 14:56: declined compression stockings at this time. Original Note: Addendum entered by Thang Ramey R.N. 06/12/18 13:51: Pt continues as previously noted. Family attentive in room. Milly activity and being up in chair. Original Note: Ptalert and oriented,offers no overt c/o pain. Concerned about Dr ordering meds. RN spoke with Dr. Linn. See new orders. Pt up with SBA. Family attentive at the bedside.
[2018-06-12 12:06] LABS: BUN Creatinine Ratio 16.3 (6-22); Blood Urea Nitrogen 13 mg/dL (9-20); Calcium 8.8 mg/dL (8.4-10.2); Carbon Dioxide 31 mmol/L (22-32); Chloride 82 mmol/L (98-107); Estimated Glomerular Filt Rate > 60.0 mL/min (>60); Glucose 95 mg/dL (80-110); HEMOLYSIS < 15 (0-50); Potassium 4.4 mmol/L (3.4-5.1); Sodium 121 mmol/L (137-145)
[2018-06-12] MEDS: SODIUM CHLORIDE 0.9% 1,000 ML 84 ML IV (13:25)
--- NOTE | 2018-06-12 14:50 | OT.IP.EVAL ---
Past Medical History (Last Reviewed 06/12/18 @ 13:37 by Prabhu Linn MD) Hyponatremia (Acute) Bladder cancer (Acute) Coronary artery disease (Acute) Hypertension (Acute) Hypothyroid (Acute) Kidney stones (Acute) Prostate cancer (Acute) Thyroid cancer (Acute) Surgical History (Last Reviewed 06/12/18 @ 13:37 by Prabhu Linn MD) H/O colectomy (Acute) H/O thyroidectomy (Acute) History of appendectomy (Acute) History of urostomy (Acute) Occupational Therapy Inpatient Evaluation/Re-Eval M1 PT/OT-IP Prior Functional Status Start: 06/12/18 16:08 Freq: NEEDED Status: Active Protocol: Document 06/12/18 15:20 [facility] (Rec: 06/12/18 16:21 [facility] [id number]) Medical Review Prior Functional Status Medical History Reviewed Yes Mobility and Gait indep. outdoor gait without device, but does admit to using his cane when he goes to his outpatient PT appointment . Activities of Daily Living and IADL's indep. I/ADLs, including driving. He does all of the chores at home. Social History Household Members spouse family Living Arrangements Apartment/Condo Number of Floors (Floors) One Floor Number of Stairs To Enter/Railing? 4 SE B rails Home Environment Standard Height Toilet Walk in Shower Home Equipment Straight Cane Additional Social History Comment Pt found to have sodium of 118 after his follow up with assembly riveter, recommended that he come to the ER. Pt found to have sodium on 119 in ER upon admission. Sodium up to 121 as of 06/12/18. notes pt was more unsteady than usual. Pt with MARLON s/p fall in October of 2017. He has chronic vertigo, and is seeing OP PT for his vertigo and balance. M2 OT-IP Current Condition Start: 06/12/18 18:21 Freq: Status: Active Protocol: Document 06/12/18 14:50 PJM (Rec: 06/12/18 18:35 PJM [id number]) Occupational Therapy Current Condition Current Condition Evaluation Date 06/12/18 Treatment Diagnosis decreased self care/mobility due to severe hyponatremia Post Operative Precautions Other Precautions fall risk M3 OT- IP Subjective and Pain Start: 06/12/18 18:21 Freq: Status: Active Protocol: Document 06/12/18 14:50 PJM (Rec: 06/12/18 18:35 PJM [id number]) OT- Subjective Occupational Therapy Visit Type Type Initial Evaluation Visit Start Time 14:22 Visit Stop Time 14:50 Total Visit Minutes 28 Occupational Therapy Visit Comments Patient Comments I feel pretty good. Patient/Caregiver Goals to go home once they figure out why his sodium is so low and should be done about it. OT Pain Assessment Pain When Pain Assessed After Treatment Pain Present Pain Present Denied Pain M4 OT- IP ADL's Start: 06/12/18 18:21 Freq: Status: Active Protocol: Document 06/12/18 14:50 PJM (Rec: 06/12/18 18:35 PJM [id number]) OT WSE-Mwag-Mgtwfmp General Evaluation Self-Feeding Ability Independent OT ADL-Grooming General Evaluation Grooming Ability Independent Comments OT Grooming Comments standing at sink OT ADL-Oral Care General Eval Oral Care Ability Independent Comments Oral Care Comments standing at sink OT ADL-Dressing General Eval Lower Body Dressing Ability Independent Areas Needing Assistance Socks Assistive Devices Dressing Assistive Devices Long Handled Shoe Horn Last Putter Away Sock Aid Comments OT Dressing Comments no difficulty reaching L foot for socks and shoes. Pt uses sock aid and long shoe horn for RLE due to recent R hip fx 10/2017. He has all necessary adaptive equipt from last admit for hip surgery. OT ADL-Toileting General Evaluation Toileting Ability Independent Devices Toileting Assistive Devices Raised Toilet Seat OT ADL-Bathing Devices Bathing Equipment Long Handled Sponge or [place] Shower Chair without Arms Grab Bars Comments OT Bathing Comments did not occur. no new deficits identified that would interfere M5 OT- IP IADL's Start: 06/12/18 18:21 Freq: Status: Active Protocol: Document 06/12/18 14:50 PJM (Rec: 06/12/18 18:35 PJM [id number]) OT-Instrumental Activities of Daily Living Home Safety Awareness Awareness of Need for Assistance at Home Good Awareness Ability to Problem Solve Emergency Able to Problem Solve Situations Medication Management Medication Management No Deficits Identified Money Management Money Management No Deficits Identified Meal Preparation Meal Preparation Caregiver Provides Assist Meal Preparation Comments can assist until pt feels able Stunner And Shackler Stunner And Shackler Comments can assist until pt feels able Driving Driving Caregiver Provides Assist Driving Comments can assist until pt feels able M6 OT- IP Functional Cognition Start: 06/12/18 18:21 Freq: Status: Active Protocol: Document 06/12/18 14:50 PJM (Rec: 06/12/18 18:35 PJM [id number]) Cognitive Factors Limiting Selfcare Function Cognitive Ability Level of Alertness Alert Patient Orientation Name Age Birthday Month Date Year Day of Week Place Situation Attention Span Ability Capable of Focused Attention Capable of Sustained Attention Ability to Follow Commands Able to Follow One Step Commands Safety Awareness No Deficits Noted Cognitive Comments Cognitive Assessment Comments Pt's cognition appears WFL. OT- Vision and Hearing OT- Vision Assessment Visual Acuity WFL Glasses All The Time Vision Assessment Comments Pt denies any recent vision changes. M7 OT- IP Mobility and Balance Start: 06/12/18 18:21 Freq: Status: Active Protocol: Document 06/12/18 14:50 PJM (Rec: 06/12/18 18:35 PJM [email or web address]) OT- Bed Mobility Assessment Rolling Type of Rolling Roll to Left Level of Assistance Independent Head of Bed Elevated Supine to Sit Supine to Sit Assist Independent Head of Bed Elevated Scooting Scooting to Edge of Bed Independent OT-Transfer Assessment Sit to and From Stand Sit to and from Stand Standby Assistance Transfers Transfer Ability Standby Assistance Technique Transfer Destination Toilet Transfer Technique Stand Step Pivot Devices Transfer Assistive Devices Gait Belt Comments Mobility Comments Pt has power bed at home and usually has HOB elevated. Assisted with IV pole only this session. OT- Gait Assessment Gait Gait Assistance Required: Standby Assistance Distance (Feet) 20 Assistive Devices Assistive Device Gait Belt Comments Gait Ability Comments Assisted with IV pole only this session. Pt mildly unsteady on turns but no actual loss of balance noted. P.T. eval pending. OT- Balance Assessment Sitting Balance and Reactions Static Sitting Balance Ability Good Dynamic Sitting Balance Ability Good Standing Balance and Reactions Static Standing Balance Ability Good Dynamic Standing Balance Ability Fair Comments Other Balance Tests/Deviations/Treatment Pt states he was going to out : pt P.T. for strength and balance. M8 OT- IP Objective Assessments Start: 06/12/18 18:21 Freq: Status: Active Protocol: Document 06/12/18 14:50 PJM (Rec: 06/12/18 18:35 PJM [id number]) OT Gross Range of Motion Upper Extremity Range of Motion Assessment Within Functional Limits OT Strength Upper Extremity Strength Assessment Within Functional Limits OT- Coordination Assessment Comments Coordination Comments BUE WFL OT-Muscle Tone Assessment Muscle Tone WNL Yes OT Sensation Assessment Comments Summary Comments BUE WNL per pt Edema Edema Absent M9 OT- IP Assessment and Plan Start: 06/12/18 18:21 Freq: Status: Active Protocol: Document 06/12/18 14:50 PJM (Rec: 06/12/18 18:35 PJM [id number]) OT Summary Assessment and Plan Potential Rehabilitation Potential Good Analytic Complexity at Evaluation Low Summary Progress Towards Goals Safe For Discharge from OT standpoint Assessment Summary Low complexity OT assessment completed on this pt admitted with severe hyponatremia, but pt currently asymptomatic with Sodium of 121. Pt appears to be at his baseline level of self care function and is SBA with functional mobility in room without a device. See details above. No OT goals identified for this admission. Pt safe to return home with when medically stable and clears P.T. Frequency of Treatment Frequency Of Treatment Discharge Discharge Recommendations OT Discharge Recommendations Home with Assistance Home Equipment Needs none
--- NOTE | 2018-06-12 15:20 | PT.IIE ---
Surgical History (Last Reviewed 06/12/18 @ 13:37 by Prabhu Linn MD) H/O colectomy (Acute) H/O thyroidectomy (Acute) History of appendectomy (Acute) History of urostomy (Acute) Medical History (Last Reviewed 06/12/18 @ 13:37 by Prabhu Linn MD) Hyponatremia (Acute) Bladder cancer (Acute) Coronary artery disease (Acute) Hypertension (Acute) Hypothyroid (Acute) Kidney stones (Acute) Prostate cancer (Acute) Thyroid cancer (Acute) Physical Therapy Inpatient Evaluation/Re-Eval M1 PT/OT-IP Prior Functional Status Start: 06/12/18 16:08 Freq: NEEDED Status: Active Protocol: Document 06/12/18 15:20 [facility] (Rec: 06/12/18 16:21 [facility] [id number]) Medical Review Prior Functional Status Medical History Reviewed Yes Mobility and Gait indep. outdoor gait without device, but does admit to using his cane when he goes to his outpatient PT appointment . Activities of Daily Living and IADL's indep. I/ADLs, including driving. He does all of the chores at home. Social History Household Members spouse family Living Arrangements Apartment/Condo Number of Floors (Floors) One Floor Number of Stairs To Enter/Railing? 4 SE B rails Home Environment Standard Height Toilet Walk in Shower Home Equipment Straight Cane Additional Social History Comment Pt found to have sodium of 118 after his follow up with hair cutter, recommended that he come to the ER. Pt found to have sodium on 119 in ER upon admission. Sodium up to 121 as of 06/12/18. notes pt was more unsteady than usual. Pt with MARLON s/p fall in October of 2017. He has chronic vertigo, and is seeing OP PT for his vertigo and balance. M2 PT-IP Current Condition Start: 06/12/18 16:08 Freq: NEEDED Status: Active Protocol: Document 06/12/18 15:20 [facility] (Rec: 06/12/18 16:21 [facility] [id number]) Physical Therapy Current Condition Current Condition Evaluation Date 06/12/18 Treatment Diagnosis low sodium, difficulty with gait M3 PT-IP Subjective Start: 06/12/18 16:08 Freq: NEEDED Status: Active Protocol: Document 06/12/18 15:20 [facility] (Rec: 06/12/18 16:21 [facility] [id number]) Subjective Physical Therapy Visit Type Type Initial Evaluation Visit Start Time 15:20 Visit Stop Time 15:48 Total Visit Minutes 28 Number of IT CONSULTING MANAGER Visits 0 Physical Therapy Visit Comments Patient Comments pt states he feels close to his baseline Patient Goals get out of the hospital Therapy Pain Assessment Pain Present Pain Present Denied Pain M4 PT-IP Mobility and Gait Start: 06/12/18 16:08 Freq: NEEDED Status: Active Protocol: Document 06/12/18 15:20 [facility] (Rec: 06/12/18 16:21 [facility] [id number]) PT-Bed Mobility Assessment Sit to Supine Sit to Supine Independent Head of Bed Elevated Scooting Scooting Up and Down in Bed Independent PT-Transfer Assessment Sit to and From Stand Sit to and from Stand Independent Equipment Transfer Assistive Device Gait Belt Transfers Transfer Destination Bed Transfer Technique Stand Step Pivot Transfer Ability Level of Assist Standby Assistance Gait Assessment Gait Gait Assistance Required: Standby Assistance Distance (Feet) 300 Assistive Devices Assistive Device Gait Belt Gait Deviations General Gait Pattern Flexed Trunk Factors Limiting Gait Function Factors Limiting Gait Function Decreased Activity Tolerance Comments Gait Comments pt used IV pole for part of gait, but able to ambulate without any AD with mild lateral sway, no loss of balance. HR did increased to 102 bpm with gait, but decreased to 82 bpm after standing rest x30 sec. O2 saturation 90-95% during session. Stair Climbing Assessment Evaluation Level of Assist On Stairs Standby Assistance Devices Stair Climbing Assistive Devices Left Railing Right Railing Technique/Endurance Stair Climbing Direction Ascend and Descend Stair Climbing Technique Step Over Step Number of Steps Climbed 3 Query Text: Stair Climbing Set # Repetitions (reps) 1 PT-Balance Assessment Sitting Balance and Reactions Static Sitting Balance Ability Good Dynamic Sitting Balance Ability Good Standing Balance and Reactions Static Standing Balance Ability Good Dynamic Standing Balance Ability Fair M5 PT-IP Objective Assessments Start: 06/12/18 16:08 Freq: NEEDED Status: Active Protocol: Document 06/12/18 15:20 [facility] (Rec: 06/12/18 16:21 [facility] [id number]) Orientation Orientation/Cognition Level of Alertness Alert Orientation Name Age Birthday Month Date Year Day of Week Place Situation Strength Lower Extremity Strength Assessment Within Functional Limits M6 PT-IP Treatment Start: 06/12/18 16:08 Freq: NEEDED Status: Active Protocol: Document 06/12/18 15:20 [facility] (Rec: 06/12/18 16:21 [facility] [id number]) Physical Therapy Treatment Education Education Provided Safety M7 PT-IP Assessment and Plan Start: 06/12/18 16:08 Freq: NEEDED Status: Active Protocol: Document 06/12/18 15:20 [facility] (Rec: 06/12/18 16:21 [facility] [id number]) PT Summary Assessment and Plan Potential Rehabilitation Potential Good Status of Condition at Evaluation Stable Summary Impairments Activity Tolerance Progress Towards Goals Safe For Discharge Assessment Summary Pt at this time is able to tolerate 300 ft of ambulation, no loss of balance but he did fatigue. At this time, pt appears to be close to his prior level of function. He was without c/o SOB. Pt is cleared to d/c home when medically stable, recommend he return back to OP PT when cleared by his PCP. Frequency of Treatment Frequency Of Treatment Discharge Recommendations To Nursing Amount of Assist Needed 1 Person Assist Discharge Recommendations PT Discharge Recommendations Home Outpatient PT
[2018-06-12] MEDS: DOCUSATE 250 MG CAPSULE PO (16:17)
[2018-06-13] MEDS: SODIUM CHLORIDE 0.9% 1,000 ML 84 ML IV (01:24)
[2018-06-13 04:15] VITALS: BP 115/61; PULSE 54; RESP 18; TEMP 36.7; O2SAT 97
--- NOTE | 2018-06-13 04:58 | PC.NURSE ---
2300- Assessment complete. Pt declined compression stockings; IV fluids running into patent periph IV; no needs at this time. 0100- Urostomy bag emptied per pt's request. Pt aware that bag needs to be changed today, states his will bring the supplies to the hospital.
[2018-06-13] MEDS: LEVOTHYROXINE 125 MCG TABLET PO (05:19)
[2018-06-13 05:51] LABS: BUN Creatinine Ratio 21.3 (6-22); Blood Urea Nitrogen 17 mg/dL (9-20); Calcium 8.5 mg/dL (8.4-10.2); Carbon Dioxide 28 mmol/L (22-32); Chloride 89 mmol/L (98-107); Estimated Glomerular Filt Rate > 60.0 mL/min (>60); Glucose 91 mg/dL (80-110); HEMOLYSIS < 15 (0-50); Potassium 4.4 mmol/L (3.4-5.1); Sodium 125 mmol/L (137-145)
[2018-06-13 07:00] VITALS: O2SAT 97
[2018-06-13 08:30] VITALS: BP 98/57; PULSE 60; RESP 18; TEMP 36.4; O2SAT 98
[2018-06-13] MEDS: ASPIRIN EC 81 MG TABLET PO (09:12)
[2018-06-13] MEDS: APIXABAN 5 MG TABLET PO (09:12)
[2018-06-13] MEDS: PREGABALIN 75 MG CAPSULE 150 MG PO (09:12)
[2018-06-13] MEDS: SENNOSIDES 8.6 MG TABLET PO (09:12)
[2018-06-13] MEDS: ATORVASTATIN 20 MG TABLET 40 MG PO (09:12)
[2018-06-13 09:13] VITALS: BP 98/57; PULSE 60
[2018-06-13] MEDS: METOPROLOL ER 25 MG TABLET PO (09:13)
[2018-06-13 09:14] VITALS: BP 98/57; PULSE 60
--- NOTE | 2018-06-13 09:58 | PC.NURSE ---
Addendum entered by Thang Ramey R.N. 06/13/18 11:49: Family here, d/c orders written Pt ready to head home. Instructions given, IV and Tele removed. Pt escorted to car via w/c with Thang BARKER Original Note: Addendum entered by Thang Ramey R.N. 06/13/18 10:50: Pt changed urostomy appliance and did very well, great technique. Stoma site clean, beefy red and intact. Pt expecting to go home today per his discussion with Dr. Linn. Original Note: Pt alert and oriented, follows commands, offers no overt c/o pain. Is concerned with appliance. Will change shortly. Family to be coming in to visit. Na is 125. Up and active this morning. Dr. Linn in to see Pt. Held meds dt VSs. per Dr. Linn.
[2018-06-13 10:53] VITALS: BP 129/69; PULSE 60
--- NOTE | 2018-06-13 11:01 | PM.DS.1 ---
History of Present Illness Chief complaint: LOW SODIUM Narrative: This is an 82-year-old male with a sodium level of 118 secondary to hydrochlorothiazide. Cardiology had started him on hydrochlorothiazide several months ago and on routine potassium/sodium surveillance he was noted to have a level of 118 yesterday. He was directed to come to the emergency department where his level was found to be 119. This morning, after receiving IV normal saline overnight it is up to 121. He has had no symptoms. Cardiology is treating him for hypertension. He has trace edema. There is no chest pain, palpitations, admitted weakness or syncope. His reported to the emergency department physician that he had been somewhat unsteady on his feet but he does not endorse that. Discharge Providers Date of admission: 06/11/18 23:31 Discharge Date: 06/13/18 Primary care physician: SERGIO Hooper Consults: 06/11/18 23:16 Consult to Physician Routine Comment: Consulting Provider: Kailee Melgar Reason for consultation: Admission Has provider been notified: Yes 06/12/18 09:58 Consult to Occupational Therapy Evaluate & Treat Comment: Physician Instructions: Evaluate and treat Consult to Physical Therapy Evaluate & Treat Comment: Physician Instructions: Evaluate and Treat Discharge provider: Prabhu Linn MD Summary Discharge Diagnosis: 1 - Iatrogenic hyponatremia 2 - Coronary artery disease/hypertension 3 - Chronic urostomy/ileal conduit 4 - History of prostate cancer 5 - History of thyroid cancer 6 - History of bladder cancer 7 - Painful peripheral neuropathy 8 - Hypothyroidism 9 - Hyperlipidemia 10 - Eliquis therapy Hospital Course: 1 - Iatrogenic hyponatremia -sodium 125 today without symptoms.. -the hydrochlorothiazide will be stopped and not resumed. -this will be rechecked later this week with Dr. Mueller or SERGIO Fall. 2 - Coronary artery disease/hypertension -he is asymptomatic -continue aspirin, atorvastatin, amlodipine, Eliquis, losartan and metoprolol. -follow up blood pressure with Doctor Ami 3 - Chronic urostomy/ileal conduit -this is stable. His surgeries were in 1996. 4 - History of prostate cancer -this is stable 5 - History of thyroid cancer - this is stable, he remains on levothyroxine. His surgery was in 2004. 6 - History of bladder cancer -functioning ileal conduit urostomy. 7 - Painful peripheral neuropathy -continue Lyrica. 8 - Hypothyroidism -continue levothyroxine. 9 - Hyperlipidemia -continue atorvastatin. 10 - Eliquis therapy -it is not clear whether he is on this for paroxysmal atrial fibrillation, history of blood clot, etc. None of those are actually listed in the available records. Status at Discharge Functional status at discharge: independent ambulation Overall status at discharge: patient is back to baseline Time Spent with Patient Less than 30 minutes Exam Vital Signs (past 8 hours): - 06/13/18 04:15 06/13/18 07:00 06/13/18 08:30 Temperature 98.0 F 97.5 F L Pulse Rate 54 L 60 Respiratory Rate 18 18 Blood Pressure 115/61 98/57 L Pulse Oximetry 97 97 98 06/13/18 09:13 06/13/18 09:14 06/13/18 10:53 Temperature Pulse Rate 60 60 60 Respiratory Rate Blood Pressure 98/57 L 98/57 L 129/69 Pulse Oximetry Oxygen Delivery Method Room Air Oxygen Flow Rate 0 Narrative Exam Narrative: He is alert and oriented, in no apparent distress. Heart is regular rate and rhythm without murmur. Lungs are clear to auscultation bilaterally. Extremities have no ankle edema. Objective Labs Result Diagrams: 06/11/18 21:15 06/13/18 05:10 Labs: Laboratory Results - last 24 hr 06/12/18 06/13/18 11:30 05:10 Sodium 121 L 125 L Potassium 4.4 4.4 Chloride 82 L 89 L Carbon Dioxide 31 28 BUN 13 17 Creatinine 0.80 0.80 Estimated GFR > 60.0 > 60.0 BUN/Creatinine Ratio 16.3 21.3 Glucose 95 91 Calcium 8.8 8.5 Discharge Plan Discharge Plan Patient Disposition: Home Discharge comment: Please Follow up with Dr. Mueller or SERGIO Fall this week for a follow up Sodium blood test - BMP. Do not take Hydrochlorothiazide - HCTZ. Discharge Med Rec/Prescriptions Prescriptions: Continued losartan 50 mg tablet 1 tab PO DAILY RF: 0 atorvastatin 40 mg tablet 1 tab PO DAILY RF: 0 docusate calcium 240 mg capsule 1 cap PO QPM RF: 0 aspirin 81 mg tablet,delayed release (DR/EC) 1 tab PO DAILY RF: 0 levothyroxine 125 mcg tablet 1 tab PO DAILY RF: 0 pregabalin 150 mg capsule 1 cap PO TID RF: 0 sennosides [senna] 8.6 mg Tablet 8.6 mg PO BID RF: 0 amlodipine 10 mg tablet 1 tab PO DAILY RF: 0 metoprolol succinate 25 mg tablet extended release 24 hr 1 tab PO DAILY RF: 0 diphenhydramine-acetaminophen [Acetaminophen PM] 25-500 mg Tablet 1 tab PO BEDTIME PRN (Reason: Insomnia) RF: 0 docusate sodium 100 mg Tablet 100 mg PO BID RF: 0 apixaban 5 mg tablet 1 tab PO BID RF: 0 meclizine 25 mg tablet 25 mg PO TID PRN (Reason: Dizziness Or Vertigo) RF: 0 Follow up/Referrals: Arpita Fall ARNP [Primary Care Provider] - Discharge Data Primary Care Provider: Arpita Fall Attending Provider: Kailee Melgar Admit Date/Time: 06/11/18 23:31 Discharges patient from system. Discharge Date/Time: 06/13/18 12:15 Quality VTE Deep Vein Thrombosis/Pulmonary Embolism Present on Admission: No
== END 2018-06-13 12:15 | disposition home or self-care (01) ==
LOC: ED 23:16 → AC 23:31
PROVIDERS: Family Medicine; Admitting Provider Internal Medicine; Emergency Provider Emergency Medicine; Family Provider Nurse Practitioner Gerontology; PCP Nurse Practitioner Gerontology; Visit Provider Internal Medicine
DX: E87.1 Hypo-osmolality and hyponatremia (principal); I10 Essential (primary) hypertension; I25.10 Atherosclerotic heart disease of native coronary artery without angina pectoris; E03.9 Hypothyroidism, unspecified; G62.9 Polyneuropathy, unspecified; E78.5 Hyperlipidemia, unspecified; Z79.01 Long term (current) use of anticoagulants
CPT/HCPCS: 36415; 36591; 70450; 80048; 85025; 97161; 97165; 99282; 99284; G0378

== ENCOUNTER 2018-07-03 16:24 | Inpatient (IN) | payer MEDICARE, OTHER, SELFPAY ==
[2018-06-12 00:25] VITALS: BMI 26.2
[2018-07-03] VITALS (14 sets, daily range): BP systolic 93–144; BP diastolic 49–97; PULSE 85–94; RESP 16–25; TEMP 38.3–40.2; O2SAT 92–110; BMI 25.5
--- NOTE | 2018-07-03 17:14 | DI.RAD.S_ITS ---
PROCEDURE: XR CHEST 1V INDICATIONS: fever weakness TECHNIQUE: One view of the chest was acquired. COMPARISON: Outside Film, CR, XR CHEST 2 VIEWS, 03/25/2018, 15:46. [facility], CR, XR CHEST 1V, 11/09/2017, 18:14. FINDINGS: Surgical changes and devices: Thyroidectomy. Lungs and pleura: Lungs are clear. No pleural effusions or pneumothorax. Mediastinum: Mediastinal contours appear normal. Heart size is normal. Bones and chest wall: No suspicious bony lesions. Overlying soft tissues appear unremarkable. IMPRESSION: No acute cardiopulmonary disease. Dictated by: Prema Spencer M.D. on 07/03/2018 at 18:18 Approved by: Prema Spencer M.D. on 07/03/2018 at 18:19
--- NOTE | 2018-07-03 17:19 | ED.FEVER ---
HPI - Fever <Shauna Evans DO - Last Filed: 07/04/18 07:16> General Chief Complaint: Fever Stated Complaint: blood pressure all over the place, shakey Time Seen by Provider: 07/03/18 17:12 Source: patient Mode of arrival: ambulatory Limitations: no limitations History of Present Illness HPI Narrative: Patient is an 82-year-old man presenting with fever. He said he was doing well yesterday and this morning however at 1:00 p.m. he started feeling very ill he is confused now. He was actually admitted here earlier this month with hyponatremia. He denies any cough no nausea or vomiting. No chest pain. Family is at bedside. They actually give most of the history. It came on quite suddenly. He has no cough or shortness of breath. MD complaint: fever, malaise and weakness Onset (ago): hour(s) (4) Related Data Home Medications Medication Instructions Recorded Confirmed aspirin 1 tab PO DAILY 11/07/17 07/04/18 atorvastatin 1 tab PO DAILY 11/07/17 07/04/18 docusate calcium 1 cap PO QPM 11/07/17 07/04/18 levothyroxine 1 tab PO DAILY 11/07/17 07/04/18 losartan 1 tab PO DAILY 11/07/17 07/04/18 pregabalin 1 cap PO TID 11/07/17 07/04/18 amlodipine 1 tab PO DAILY 06/11/18 07/04/18 apixaban 1 tab PO BID 06/11/18 07/04/18 diphenhydramine-acetaminophen 1 tab PO BEDTIME PRN 06/11/18 07/04/18 [Acetaminophen PM] docusate sodium 100 mg PO BID 06/11/18 07/04/18 meclizine 25 mg PO TID PRN 06/11/18 07/04/18 metoprolol succinate 1 tab PO DAILY 06/11/18 07/04/18 sennosides [senna] 8.6 mg PO BID 06/11/18 07/04/18 Previous Rx's Medication Instructions Recorded ciprofloxacin HCl [Cipro] 500 mg PO BID 7 Days #14 tab 07/03/18 Allergies Allergy/AdvReac Type Severity Reaction Status Date / Time No Known Drug Allergies Allergy Verified 11/07/17 20:47 Review of Systems <Shauna Evans DO - Last Filed: 07/04/18 07:16> Review of Systems ROS Unobtainable: All systems reviewed & are unremarkable except as noted in HPI and below Constitutional Reports body ache(s), Reports chills and Reports fever(s) Eyes Denies change in vision, Denies eye discharge, Denies irritation and Denies loss of vision Cardiovascular Denies chest pain, Denies lightheadedness, Denies dyspnea and Denies orthopnea Respiratory Denies cough and Denies dyspnea Gastrointestinal Gastrointestinal: Denies abdominal pain, Denies change in bowel habits, Denies diarrhea, Denies nausea and Denies vomiting Genitourinary Comments: Urostomy Musculoskeletal Denies back pain, Denies muscle weakness, Denies numbness and Denies tingling Integumentary/Breasts Denies pruritus, Denies erythema, Denies rash and Denies wounds Neurologic Denies loss of vision, Denies numbness and Denies tingling PFSH <Shauna Evans DO - Last Filed: 07/04/18 07:16> Medical History Bladder cancer (Acute) Coronary artery disease (Acute) Hypertension (Acute) Hyponatremia (Acute) Hypothyroid (Acute) Kidney stones (Acute) Prostate cancer (Acute) Thyroid cancer (Acute) Surgical History H/O colectomy (Acute) H/O thyroidectomy (Acute) History of appendectomy (Acute) History of urostomy (Acute) Family History Father Alcoholism Mother Alcoholism Social History household members: spouse and family Smoking Status: Former smoker alcohol intake: former substance use type: does not use Family History Father Alcoholism Mother Alcoholism Social History household members: spouse and family Smoking Status: Former smoker alcohol intake: former substance use type: does not use Exam <Shauna Evans DO - Last Filed: 07/04/18 07:16> Initial Vital Signs Initial Vital Signs: Vital Signs Temperature 101.6 F H 07/03/18 16:40 Pulse Rate 94 H 07/03/18 16:40 Respiratory Rate 19 07/03/18 16:40 Blood Pressure 144/68 H 07/03/18 16:40 Pulse Oximetry 110 H 07/03/18 16:40 GENERAL: Weak confused elderly male HEENT: Head atraumatic,EOMI, pupils reactive CARDIOVASCULAR: Regular rate and rhythm without murmurs, rubs or gallops. RESPIRATORY: Breath sounds equal bilaterally, no wheezes rales or rhonchi. ABDOMEN: Soft, nontender. Normoactive bowel sounds all 4 quadrants. No guarding or rebound. Urostomy present clean urine EXTREMITIES: Normal range of motion, no clubbing or edema. Neurovascularly intact NEUROLOGICAL: Alert and oriented able to follow some commands moving all extremities SKIN: Warm, dry, no laceration, no petechiae, no rashes or lesions. <Ricky Hernandez DO - Last Filed: 07/04/18 00:23> Initial Vital Signs Initial Vital Signs: Vital Signs Temperature 101.6 F H 07/03/18 16:40 Pulse Rate 94 H 07/03/18 16:40 Respiratory Rate 19 07/03/18 16:40 Blood Pressure 144/68 H 07/03/18 16:40 Pulse Oximetry 110 H 07/03/18 16:40 Course <Shauna Evans DO - Last Filed: 07/04/18 07:16> Course Narrative: Patient signed out to Dr. Hernandez for disposition. Probable possible admit. Labs are still pending. Orders Ordered: ED Orders 07/04/18 XR chest 2V Routine 07/04/18 06:00 Basic Metabolic Panel Stat Complete Blood Count MAN DIFF Stat Magnesium Stat Acetaminophen (Tylenol) 650 mg PO Q6HR PRN PRN Reason: As Needed for Fever/Mild Pain Apixaban (Eliquis) 5 mg PO BID [facility] Aspirin (Aspirin Ec) 81 mg PO DAILY [facility] Atorvastatin Calcium (Lipitor) 40 mg PO DAILY [facility] Docusate Sodium (Colace) 100 mg PO BID [facility] Sodium Chloride (Normal Saline 0.9%) 1,000 mls @ 150 mls/hr IV CONT [facility] Last Admin: 07/04/18 05:39 Dose: 150 mls/hr Levothyroxine Sodium (Synthroid) 125 mcg PO DAILY [facility] Pregabalin (Lyrica) 150 mg PO TID [facility] Sennosides (Senna) 8.6 mg PO BID [facility] Discontinued Medications Acetaminophen (Tylenol) 650 mg PO NOW ONE Stop: 07/03/18 17:29 Last Admin: 07/03/18 17:29 Dose: 650 mg Acetaminophen (Tylenol) 975 mg PO NOW ONE Stop: 07/04/18 01:54 Last Admin: 07/04/18 03:05 Dose: 975 mg Sodium Chloride (Normal Saline 0.9%) 1,000 mls @ 200 mls/hr IV CONT FRED Last Infusion: 07/03/18 20:50 Dose: 0 mls/hr Infusion: 07/03/18 20:00 Dose: 999 mls/hr Infusion: 07/03/18 19:00 Dose: 400 mls/hr Infusion: 07/03/18 18:43 Dose: 1,000 mls/hr Admin: 07/03/18 17:29 Dose: 200 mls/hr Ceftriaxone Sodium/Dextrose (Rocephin) 1 gm in 50 mls @ 100 mls/hr IV NOW ONE Stop: 07/03/18 19:07 Last Infusion: 07/03/18 19:50 Dose: 0 mls/hr Admin: 07/03/18 18:48 Dose: 100 mls/hr Sodium Chloride (Normal Saline 0.9%) 1,000 mls @ 1,000 mls/hr IV BOLUS ONE Stop: 07/03/18 19:38 Last Admin: 07/03/18 20:25 Dose: Not Given Sodium Chloride (Normal Saline 0.9%) 1,000 mls @ 200 mls/hr IV BOLUS ONE Stop: 07/04/18 01:43 Last Infusion: 07/03/18 23:05 Dose: 1,000 mls/hr Infusion: 07/03/18 22:40 Dose: 1,000 mls/hr Admin: 07/03/18 20:51 Dose: 200 mls/hr Sodium Chloride (Normal Saline 0.9%) 500 mls @ 1,000 mls/hr IV BOLUS ONE Stop: 07/04/18 03:44 Last Infusion: 07/04/18 04:16 Dose: 0 mls/hr Admin: 07/04/18 03:43 Dose: 1,000 mls/hr Sodium Chloride (Normal Saline 0.9%) 500 mls @ 1,000 mls/hr IV BOLUS ONE Stop: 07/04/18 04:13 Last Admin: 07/04/18 04:17 Dose: Not Given Sodium Chloride (Normal Saline 0.9%) 1,000 mls @ 1,000 mls/hr IV BOLUS ONE Stop: 07/04/18 04:59 Last Infusion: 07/04/18 05:10 Dose: 0 mls/hr Admin: 07/04/18 04:09 Dose: 1,000 mls/hr Sodium Chloride (Normal Saline 0.9%) 1,000 mls @ 150 mls/hr IV CONT FRED Last Admin: 07/04/18 05:47 Dose: Not Given Ibuprofen (Advil) 400 mg PO NOW ONE Stop: 07/03/18 20:02 Last Admin: 07/03/18 20:51 Dose: 400 mg Ketorolac Tromethamine (Toradol) 15 mg IV NOW ONE Stop: 07/03/18 18:06 Last Admin: 07/03/18 18:53 Dose: Not Given Vital Signs - 8 hr 07/03/18 23:25 07/04/18 00:19 07/04/18 02:57 Temperature 101.8 F H 100.4 F H Pulse Rate 87 72 Respiratory Rate 20 14 Blood Pressure 103/54 L 85/50 L Pulse Oximetry 94 97 95 07/04/18 03:05 07/04/18 03:58 07/04/18 03:59 Temperature 100.4 F H Pulse Rate 70 Respiratory Rate Blood Pressure 89/51 L Pulse Oximetry 92 96 07/04/18 04:19 07/04/18 06:37 Temperature 98.5 F Pulse Rate 60 Respiratory Rate 16 Blood Pressure 115/65 Pulse Oximetry 95 97 <Ricky Hernandez, - Last Filed: 07/04/18 00:23> Orders Ordered: ED Orders 07/04/18 XR chest 2V Routine 07/04/18 06:00 Basic Metabolic Panel Stat Complete Blood Count MAN DIFF Stat Magnesium Stat Acetaminophen (Tylenol) 650 mg PO Q6HR PRN PRN Reason: As Needed for Fever/Mild Pain Apixaban (Eliquis) 5 mg PO BID [facility] Aspirin (Aspirin Ec) 81 mg PO DAILY [facility] Atorvastatin Calcium (Lipitor) 40 mg PO DAILY [facility] Docusate Sodium (Colace) 100 mg PO BID [facility] Sodium Chloride (Normal Saline 0.9%) 1,000 mls @ 150 mls/hr IV CONT FRED Last Admin: 07/04/18 05:39 Dose: 150 mls/hr Levothyroxine Sodium (Synthroid) 125 mcg PO DAILY [facility] Pregabalin (Lyrica) 150 mg PO TID [facility] Sennosides (Senna) 8.6 mg PO BID [facility] Discontinued Medications Acetaminophen (Tylenol) 650 mg PO NOW ONE Stop: 07/03/18 17:29 Last Admin: 07/03/18 17:29 Dose: 650 mg Acetaminophen (Tylenol) 975 mg PO NOW ONE Stop: 07/04/18 01:54 Last Admin: 07/04/18 03:05 Dose: 975 mg Sodium Chloride (Normal Saline 0.9%) 1,000 mls @ 200 mls/hr IV CONT [facility] Last Infusion: 07/03/18 20:50 Dose: 0 mls/hr Infusion: 07/03/18 20:00 Dose: 999 mls/hr Infusion: 07/03/18 19:00 Dose: 400 mls/hr Infusion: 07/03/18 18:43 Dose: 1,000 mls/hr Admin: 07/03/18 17:29 Dose: 200 mls/hr Ceftriaxone Sodium/Dextrose (Rocephin) 1 gm in 50 mls @ 100 mls/hr IV NOW ONE Stop: 07/03/18 19:07 Last Infusion: 07/03/18 19:50 Dose: 0 mls/hr Admin: 07/03/18 18:48 Dose: 100 mls/hr Sodium Chloride (Normal Saline 0.9%) 1,000 mls @ 1,000 mls/hr IV BOLUS ONE Stop: 07/03/18 19:38 Last Admin: 07/03/18 20:25 Dose: Not Given Sodium Chloride (Normal Saline 0.9%) 1,000 mls @ 200 mls/hr IV BOLUS ONE Stop: 07/04/18 01:43 Last Infusion: 07/03/18 23:05 Dose: 1,000 mls/hr Infusion: 07/03/18 22:40 Dose: 1,000 mls/hr Admin: 07/03/18 20:51 Dose: 200 mls/hr Sodium Chloride (Normal Saline 0.9%) 500 mls @ 1,000 mls/hr IV BOLUS ONE Stop: 07/04/18 03:44 Last Infusion: 07/04/18 04:16 Dose: 0 mls/hr Admin: 07/04/18 03:43 Dose: 1,000 mls/hr Sodium Chloride (Normal Saline 0.9%) 500 mls @ 1,000 mls/hr IV BOLUS ONE Stop: 07/04/18 04:13 Last Admin: 07/04/18 04:17 Dose: Not Given Sodium Chloride (Normal Saline 0.9%) 1,000 mls @ 1,000 mls/hr IV BOLUS ONE Stop: 07/04/18 04:59 Last Infusion: 07/04/18 05:10 Dose: 0 mls/hr Admin: 07/04/18 04:09 Dose: 1,000 mls/hr Sodium Chloride (Normal Saline 0.9%) 1,000 mls @ 150 mls/hr IV CONT FRED Last Admin: 07/04/18 05:47 Dose: Not Given Ibuprofen (Advil) 400 mg PO NOW ONE Stop: 07/03/18 20:02 Last Admin: 07/03/18 20:51 Dose: 400 mg Ketorolac Tromethamine (Toradol) 15 mg IV NOW ONE Stop: 07/03/18 18:06 Last Admin: 07/03/18 18:53 Dose: Not Given Vital Signs - 8 hr 07/03/18 23:25 07/04/18 00:19 07/04/18 02:57 Temperature 101.8 F H 100.4 F H Pulse Rate 87 72 Respiratory Rate 20 14 Blood Pressure 103/54 L 85/50 L Pulse Oximetry 94 97 95 07/04/18 03:05 07/04/18 03:58 07/04/18 03:59 Temperature 100.4 F H Pulse Rate 70 Respiratory Rate Blood Pressure 89/51 L Pulse Oximetry 92 96 07/04/18 04:19 07/04/18 06:37 Temperature 98.5 F Pulse Rate 60 Respiratory Rate 16 Blood Pressure 115/65 Pulse Oximetry 95 97 MDM - Fever <Shauna Evans DO - Last Filed: 07/04/18 07:16> Lab Data Attestation: I reviewed the patient's lab results. Result diagrams: 07/03/18 17:00 07/03/18 17:00 Lab Results 07/03/18 07/03/18 07/03/18 Range/Units 17:00 17:00 17:00 WBC 13.7 H (4.5-11.0) X10^3/uL RBC 4.28 L (4.5-5.9) X10^6/uL Hgb 12.5 L (13.5-17.5) g/dL Hct 37.8 L (41-53) % MCV 88.4 (80-100) fL MCH 29.2 (26-34) PG MCHC 33.0 (30-36) % RDW 13.4 (11.6-14.8) % Plt Count 242 (150-400) X10^3/uL Neut % (Auto) 93.9 H (50-75) % Lymph % (Auto) 2.6 L (25-40) % [place] % (Auto) 2.4 L (3-14) % Eos % (Auto) 0.8 L (2-4) % Baso % (Auto) 0.3 (0-2) % Neut # (Auto) 65249 H (5461-6952) /uL Lymph # (Auto) 400 L (4305-5754) /uL [place] # (Auto) 300 (0-900) /uL Eos # (Auto) 100 (0-450) /uL Baso # (Auto) 0 (0-100) /uL PT 14.5 H (10.1-12.7) SECONDS INR 1.2 (0.9-1.3) APTT 26 L (26.4-36.2) SECONDS Sodium (137-145) mmol/L Potassium (3.4-5.1) mmol/L Chloride (98-107) mmol/L Carbon Dioxide (22-32) mmol/L BUN (9-20) mg/dL Creatinine (0.66-1.25) mg/dL Estimated GFR (>60) mL/min BUN/Creatinine Ratio (6-22) Glucose (80-110) mg/dL Lactate (0.7-2.1) mmol/L Calcium (8.4-10.2) mg/dL Total Bilirubin (0.2-1.3) mg/dL AST (17-59) IU/L ALT (21-72) IU/L Alkaline Phosphatase (38-126) U/L Total Protein (6.3-8.2) g/dL Albumin (3.5-5.0) g/dL Globulin (1.7-4.1) g/dL Albumin/Globulin Ratio (1.0-2.8) Procalcitonin (<0.5) ng/mL Urine Color Urine Appearance Urine pH (4.5-8.0) Ur Specific [place] (1.000-1.035) Urine Protein (Negative) Urine Glucose (UA) (Negative) g/dL Urine Ketones (NEGATIVE) Urine Occult Blood (Negative) Urine Nitrate (Negative) Urine Bilirubin (NEGATIVE) Urine Urobilinogen (0.2) E.U./dL Ur Leukocyte Esterase (NEGATIVE) Urine RBC (0-5/HPF) Urine WBC (0-5/HPF) Ur Squamous Epith Cells Urine Bacteria (None) Ur Culture Indicated? Influenza A & B (PCR) Negative (Negative) 07/03/18 07/03/18 07/03/18 Range/Units 17:00 17:00 17:40 WBC (4.5-11.0) X10^3/uL RBC (4.5-5.9) X10^6/uL Hgb (13.5-17.5) g/dL Hct (41-53) % MCV (80-100) fL MCH (26-34) PG MCHC (30-36) % RDW (11.6-14.8) % Plt Count (150-400) X10^3/uL Neut % (Auto) (50-75) % Lymph % (Auto) (25-40) % [place] % (Auto) (3-14) % Eos % (Auto) (2-4) % Baso % (Auto) (0-2) % Neut # (Auto) (5665-1439) /uL Lymph # (Auto) (5169-5257) /uL [place] # (Auto) (0-900) /uL Eos # (Auto) (0-450) /uL Baso # (Auto) (0-100) /uL PT (10.1-12.7) SECONDS INR (0.9-1.3) APTT (26.4-36.2) SECONDS Sodium 129 L (137-145) mmol/L Potassium 4.9 (3.4-5.1) mmol/L Chloride 91 L (98-107) mmol/L Carbon Dioxide 27 (22-32) mmol/L BUN 16 (9-20) mg/dL Creatinine 1.00 (0.66-1.25) mg/dL Estimated GFR > 60.0 (>60) mL/min BUN/Creatinine Ratio 16.0 (6-22) Glucose 101 (80-110) mg/dL Lactate 2.5 H (0.7-2.1) mmol/L Calcium 9.0 (8.4-10.2) mg/dL Total Bilirubin 0.5 (0.2-1.3) mg/dL AST 41 (17-59) IU/L ALT 23 (21-72) IU/L Alkaline Phosphatase 75 (38-126) U/L Total Protein 7.6 (6.3-8.2) g/dL Albumin 4.5 (3.5-5.0) g/dL Globulin 3.1 (1.7-4.1) g/dL Albumin/Globulin Ratio 1.5 (1.0-2.8) Procalcitonin 0.16 (<0.5) ng/mL Urine Color Urine Appearance Urine pH (4.5-8.0) Ur Specific [place] (1.000-1.035) Urine Protein (Negative) Urine Glucose (UA) (Negative) g/dL Urine Ketones (NEGATIVE) Urine Occult Blood (Negative) Urine Nitrate (Negative) Urine Bilirubin (NEGATIVE) Urine Urobilinogen (0.2) E.U./dL Ur Leukocyte Esterase (NEGATIVE) Urine RBC (0-5/HPF) Urine WBC (0-5/HPF) Ur Squamous Epith Cells Urine Bacteria (None) Ur Culture Indicated? Influenza A & B (PCR) (Negative) 07/03/18 07/03/18 Range/Units 17:40 22:09 WBC (4.5-11.0) X10^3/uL RBC (4.5-5.9) X10^6/uL Hgb (13.5-17.5) g/dL Hct (41-53) % MCV (80-100) fL MCH (26-34) PG MCHC (30-36) % RDW (11.6-14.8) % Plt Count (150-400) X10^3/uL Neut % (Auto) (50-75) % Lymph % (Auto) (25-40) % [place] % (Auto) (3-14) % Eos % (Auto) (2-4) % Baso % (Auto) (0-2) % Neut # (Auto) (7078-5421) /uL Lymph # (Auto) (6359-5987) /uL [place] # (Auto) (0-900) /uL Eos # (Auto) (0-450) /uL Baso # (Auto) (0-100) /uL PT (10.1-12.7) SECONDS INR (0.9-1.3) APTT (26.4-36.2) SECONDS Sodium (137-145) mmol/L Potassium (3.4-5.1) mmol/L Chloride (98-107) mmol/L Carbon Dioxide (22-32) mmol/L BUN (9-20) mg/dL Creatinine (0.66-1.25) mg/dL Estimated GFR (>60) mL/min BUN/Creatinine Ratio (6-22) Glucose (80-110) mg/dL Lactate 0.8 (0.7-2.1) mmol/L Calcium (8.4-10.2) mg/dL Total Bilirubin (0.2-1.3) mg/dL AST (17-59) IU/L ALT (21-72) IU/L Alkaline Phosphatase (38-126) U/L Total Protein (6.3-8.2) g/dL Albumin (3.5-5.0) g/dL Globulin (1.7-4.1) g/dL Albumin/Globulin Ratio (1.0-2.8) Procalcitonin (<0.5) ng/mL Urine Color Yellow Urine Appearance Cloudy Urine pH 7.0 (4.5-8.0) Ur Specific [place] 1.010 (1.000-1.035) Urine Protein 1+ H (Negative) Urine Glucose (UA) Negative (Negative) g/dL Urine Ketones Negative (NEGATIVE) Urine Occult Blood 3+ H (Negative) Urine Nitrate Positive (Negative) Urine Bilirubin Negative (NEGATIVE) Urine Urobilinogen 0.2 (0.2) E.U./dL Ur Leukocyte Esterase 3+ H (NEGATIVE) Urine RBC 5-10/hpf H (0-5/HPF) Urine WBC 10-30/hpf H (0-5/HPF) Ur Squamous Epith Cells 0-1 /hpf Urine Bacteria Many (>30) H (None) Ur Culture Indicated? Specimen cultured Influenza A & B (PCR) (Negative) <Ricky Hernandez - Last Filed: 07/04/18 00:23> Lab Data Lab Results 07/03/18 07/03/18 07/03/18 Range/Units 17:00 17:00 17:00 WBC 13.7 H (4.5-11.0) X10^3/uL RBC 4.28 L (4.5-5.9) X10^6/uL Hgb 12.5 L (13.5-17.5) g/dL Hct 37.8 L (41-53) % MCV 88.4 (80-100) fL MCH 29.2 (26-34) PG MCHC 33.0 (30-36) % RDW 13.4 (11.6-14.8) % Plt Count 242 (150-400) X10^3/uL Neut % (Auto) 93.9 H (50-75) % Lymph % (Auto) 2.6 L (25-40) % [place] % (Auto) 2.4 L (3-14) % Eos % (Auto) 0.8 L (2-4) % Baso % (Auto) 0.3 (0-2) % Neut # (Auto) 85793 H (3994-5116) /uL Lymph # (Auto) 400 L (4147-6615) /uL [place] # (Auto) 300 (0-900) /uL Eos # (Auto) 100 (0-450) /uL Baso # (Auto) 0 (0-100) /uL PT 14.5 H (10.1-12.7) SECONDS INR 1.2 (0.9-1.3) APTT 26 L (26.4-36.2) SECONDS Sodium (137-145) mmol/L Potassium (3.4-5.1) mmol/L Chloride (98-107) mmol/L Carbon Dioxide (22-32) mmol/L BUN (9-20) mg/dL Creatinine (0.66-1.25) mg/dL Estimated GFR (>60) mL/min BUN/Creatinine Ratio (6-22) Glucose (80-110) mg/dL Lactate (0.7-2.1) mmol/L Calcium (8.4-10.2) mg/dL Total Bilirubin (0.2-1.3) mg/dL AST (17-59) IU/L ALT (21-72) IU/L Alkaline Phosphatase (38-126) U/L Total Protein (6.3-8.2) g/dL Albumin (3.5-5.0) g/dL Globulin (1.7-4.1) g/dL Albumin/Globulin Ratio (1.0-2.8) Procalcitonin (<0.5) ng/mL Urine Color Urine Appearance Urine pH (4.5-8.0) Ur Specific [place] (1.000-1.035) Urine Protein (Negative) Urine Glucose (UA) (Negative) g/dL Urine Ketones (NEGATIVE) Urine Occult Blood (Negative) Urine Nitrate (Negative) Urine Bilirubin (NEGATIVE) Urine Urobilinogen (0.2) E.U./dL Ur Leukocyte Esterase (NEGATIVE) Urine RBC (0-5/HPF) Urine WBC (0-5/HPF) Ur Squamous Epith Cells Urine Bacteria (None) Ur Culture Indicated? Influenza A & B (PCR) Negative (Negative) 07/03/18 07/03/18 07/03/18 Range/Units 17:00 17:00 17:40 WBC (4.5-11.0) X10^3/uL RBC (4.5-5.9) X10^6/uL Hgb (13.5-17.5) g/dL Hct (41-53) % MCV (80-100) fL MCH (26-34) PG MCHC (30-36) % RDW (11.6-14.8) % Plt Count (150-400) X10^3/uL Neut % (Auto) (50-75) % Lymph % (Auto) (25-40) % [place] % (Auto) (3-14) % Eos % (Auto) (2-4) % Baso % (Auto) (0-2) % Neut # (Auto) (3527-6935) /uL Lymph # (Auto) (8048-7551) /uL [place] # (Auto) (0-900) /uL Eos # (Auto) (0-450) /uL Baso # (Auto) (0-100) /uL PT (10.1-12.7) SECONDS INR (0.9-1.3) APTT (26.4-36.2) SECONDS Sodium 129 L (137-145) mmol/L Potassium 4.9 (3.4-5.1) mmol/L Chloride 91 L (98-107) mmol/L Carbon Dioxide 27 (22-32) mmol/L BUN 16 (9-20) mg/dL Creatinine 1.00 (0.66-1.25) mg/dL Estimated GFR > 60.0 (>60) mL/min BUN/Creatinine Ratio 16.0 (6-22) Glucose 101 (80-110) mg/dL Lactate 2.5 H (0.7-2.1) mmol/L Calcium 9.0 (8.4-10.2) mg/dL Total Bilirubin 0.5 (0.2-1.3) mg/dL AST 41 (17-59) IU/L ALT 23 (21-72) IU/L Alkaline Phosphatase 75 (38-126) U/L Total Protein 7.6 (6.3-8.2) g/dL Albumin 4.5 (3.5-5.0) g/dL Globulin 3.1 (1.7-4.1) g/dL Albumin/Globulin Ratio 1.5 (1.0-2.8) Procalcitonin 0.16 (<0.5) ng/mL Urine Color Urine Appearance Urine pH (4.5-8.0) Ur Specific [place] (1.000-1.035) Urine Protein (Negative) Urine Glucose (UA) (Negative) g/dL Urine Ketones (NEGATIVE) Urine Occult Blood (Negative) Urine Nitrate (Negative) Urine Bilirubin (NEGATIVE) Urine Urobilinogen (0.2) E.U./dL Ur Leukocyte Esterase (NEGATIVE) Urine RBC (0-5/HPF) Urine WBC (0-5/HPF) Ur Squamous Epith Cells Urine Bacteria (None) Ur Culture Indicated? Influenza A & B (PCR) (Negative) 07/03/18 07/03/18 Range/Units 17:40 22:09 WBC (4.5-11.0) X10^3/uL RBC (4.5-5.9) X10^6/uL Hgb (13.5-17.5) g/dL Hct (41-53) % MCV (80-100) fL MCH (26-34) PG MCHC (30-36) % RDW (11.6-14.8) % Plt Count (150-400) X10^3/uL Neut % (Auto) (50-75) % Lymph % (Auto) (25-40) % [place] % (Auto) (3-14) % Eos % (Auto) (2-4) % Baso % (Auto) (0-2) % Neut # (Auto) (8515-5322) /uL Lymph # (Auto) (9192-3569) /uL [place] # (Auto) (0-900) /uL Eos # (Auto) (0-450) /uL Baso # (Auto) (0-100) /uL PT (10.1-12.7) SECONDS INR (0.9-1.3) APTT (26.4-36.2) SECONDS Sodium (137-145) mmol/L Potassium (3.4-5.1) mmol/L Chloride (98-107) mmol/L Carbon Dioxide (22-32) mmol/L BUN (9-20) mg/dL Creatinine (0.66-1.25) mg/dL Estimated GFR (>60) mL/min BUN/Creatinine Ratio (6-22) Glucose (80-110) mg/dL Lactate 0.8 (0.7-2.1) mmol/L Calcium (8.4-10.2) mg/dL Total Bilirubin (0.2-1.3) mg/dL AST (17-59) IU/L ALT (21-72) IU/L Alkaline Phosphatase (38-126) U/L Total Protein (6.3-8.2) g/dL Albumin (3.5-5.0) g/dL Globulin (1.7-4.1) g/dL Albumin/Globulin Ratio (1.0-2.8) Procalcitonin (<0.5) ng/mL Urine Color Yellow Urine Appearance Cloudy Urine pH 7.0 (4.5-8.0) Ur Specific [place] 1.010 (1.000-1.035) Urine Protein 1+ H (Negative) Urine Glucose (UA) Negative (Negative) g/dL Urine Ketones Negative (NEGATIVE) Urine Occult Blood 3+ H (Negative) Urine Nitrate Positive (Negative) Urine Bilirubin Negative (NEGATIVE) Urine Urobilinogen 0.2 (0.2) E.U./dL Ur Leukocyte Esterase 3+ H (NEGATIVE) Urine RBC 5-10/hpf H (0-5/HPF) Urine WBC 10-30/hpf H (0-5/HPF) Ur Squamous Epith Cells 0-1 /hpf Urine Bacteria Many (>30) H (None) Ur Culture Indicated? Specimen cultured Influenza A & B (PCR) (Negative) Imaging Data Chest x-ray: Radiologist's impression: Francisco J Albarran W 82 M [address] [address] XRay Report Signed Patient: Francisco J Albarran WMR#: [id number] : [id number]:[id number] Age/Sex: 82 / MDate of Service: 07/03/18 Loc: ED Accession Number: [id number] Procedure: XR chest 1V Ordering Provider: Shauna Evans D.O. PROCEDURE: XR CHEST 1V INDICATIONS: fever weakness TECHNIQUE: One view of the chest was acquired. COMPARISON: Outside Film, CR, XR CHEST 2 VIEWS, 03/25/2018, 15:46. [facility], CR, XR CHEST 1V, 11/09/2017, 18:14. FINDINGS: Surgical changes and devices: Thyroidectomy. Lungs and pleura: Lungs are clear. No pleural effusions or pneumothorax. Mediastinum: Mediastinal contours appear normal. Heart size is normal. Bones and chest wall: No suspicious bony lesions. Overlying soft tissues appear unremarkable. IMPRESSION: No acute cardiopulmonary disease. Dictated by: Prema Spencer M.D. on 07/03/2018 at 18:18 Approved by: Prema Spencer M.D. on 07/03/2018 at 18:19 MDM Narrative Medical decision making narrative: Received turned over from day provider. Performed my own history and physical exam. Reviewed patient's labs. During my exam the patient was alert and oriented x3 and stated that he felt much better. His fever had improved. He did have an elevated white blood cell count, lactate of 2.5. Flu was negative. Urine is nitrite positive. This is most likely the source of his fevers. An initial discussion with the family regarding his symptoms. Patient clinically looked very well. He was given Rocephin. We discussed the possibility of them going home and doing oral antibiotics for his urinary tract infection versus being admitted to the hospital. Initially family was okay with going home and patient wanted to go home however just prior to discharge he started to have rigors again. Temperature was slightly elevated at 99. Patient then stated that he no longer felt comfortable going home. Patient was never hypotensive. I felt that the 30 cc/kilos of fluids was unnecessary and his situation. I suspect that his altered mental status was secondary to the fever which was resolved by the time that I evaluated him. I discussed the case with the night hospitalist who will admit the patient for further evaluation and treatment. Discussed the admission with family who expressed understanding and agreement. Discharge Plan Departure Patient Disposition: Admitted As Inpatient Clinical Impression: Urinary tract infection Qualifiers: Urinary tract infection type: acute cystitis Hematuria presence: with hematuria Qualified Code(s): N30.01 - Acute cystitis with hematuria Sepsis Qualifiers: Sepsis type: sepsis due to unspecified organism Qualified Code(s): A41.9 - Sepsis, unspecified organism Discharge Date/Time: 07/03/18 23:10 Interventions: ED Discharge Assessment Last Done: 07/03/18 23:09 Admit Date/Time: 07/03/18 21:06 Admit Provider: Bowen Alejandra
--- NOTE | 2018-07-03 17:24 | ED_ITS ---
HPI - Fever <Shauna Evans DO - Last Filed: 07/04/18 07:16> General Chief Complaint: Fever Stated Complaint: blood pressure all over the place, shakey Time Seen by Provider: 07/03/18 17:12 Source: patient Mode of arrival: ambulatory Limitations: no limitations History of Present Illness HPI Narrative: Patient is an 82-year-old man presenting with fever. He said he was doing well yesterday and this morning however at 1:00 p.m. he started feeling very ill he is confused now. He was actually admitted here earlier this month with hyponatremia. He denies any cough no nausea or vomiting. No chest pain. Family is at bedside. They actually give most of the history. It came on quite suddenly. He has no cough or shortness of breath. MD complaint: fever, malaise and weakness Onset (ago): hour(s) (4) Related Data Home Medications Medication Instructions Recorded Confirmed aspirin 1 tab PO DAILY 11/07/17 07/04/18 atorvastatin 1 tab PO DAILY 11/07/17 07/04/18 docusate calcium 1 cap PO QPM 11/07/17 07/04/18 levothyroxine 1 tab PO DAILY 11/07/17 07/04/18 losartan 1 tab PO DAILY 11/07/17 07/04/18 pregabalin 1 cap PO TID 11/07/17 07/04/18 amlodipine 1 tab PO DAILY 06/11/18 07/04/18 apixaban 1 tab PO BID 06/11/18 07/04/18 diphenhydramine-acetaminophen 1 tab PO BEDTIME PRN 06/11/18 07/04/18 [Acetaminophen PM] docusate sodium 100 mg PO BID 06/11/18 07/04/18 meclizine 25 mg PO TID PRN 06/11/18 07/04/18 metoprolol succinate 1 tab PO DAILY 06/11/18 07/04/18 sennosides [senna] 8.6 mg PO BID 06/11/18 07/04/18 Previous Rx's Medication Instructions Recorded ciprofloxacin HCl [Cipro] 500 mg PO BID 7 Days #14 tab 07/03/18 Allergies Allergy/AdvReac Type Severity Reaction Status Date / Time No Known Drug Allergies Allergy Verified 11/07/17 20:47 Review of Systems <Shauna Evans DO - Last Filed: 07/04/18 07:16> Review of Systems ROS Unobtainable: All systems reviewed & are unremarkable except as noted in HPI and below Constitutional Reports body ache(s), Reports chills and Reports fever(s) Eyes Denies change in vision, Denies eye discharge, Denies irritation and Denies loss of vision Cardiovascular Denies chest pain, Denies lightheadedness, Denies dyspnea and Denies orthopnea Respiratory Denies cough and Denies dyspnea Gastrointestinal Gastrointestinal: Denies abdominal pain, Denies change in bowel habits, Denies diarrhea, Denies nausea and Denies vomiting Genitourinary Comments: Urostomy Musculoskeletal Denies back pain, Denies muscle weakness, Denies numbness and Denies tingling Integumentary/Breasts Denies pruritus, Denies erythema, Denies rash and Denies wounds Neurologic Denies loss of vision, Denies numbness and Denies tingling PFSH <Shauna Evans DO - Last Filed: 07/04/18 07:16> Medical History Bladder cancer (Acute) Coronary artery disease (Acute) Hypertension (Acute) Hyponatremia (Acute) Hypothyroid (Acute) Kidney stones (Acute) Prostate cancer (Acute) Thyroid cancer (Acute) Surgical History H/O colectomy (Acute) H/O thyroidectomy (Acute) History of appendectomy (Acute) History of urostomy (Acute) Family History Father Alcoholism Mother Alcoholism Social History household members: spouse and family Smoking Status: Former smoker alcohol intake: former substance use type: does not use Family History Father Alcoholism Mother Alcoholism Social History household members: spouse and family Smoking Status: Former smoker alcohol intake: former substance use type: does not use Exam <Shauna Evans DO - Last Filed: 07/04/18 07:16> Initial Vital Signs Initial Vital Signs: Vital Signs Temperature 101.6 F H 07/03/18 16:40 Pulse Rate 94 H 07/03/18 16:40 Respiratory Rate 19 07/03/18 16:40 Blood Pressure 144/68 H 07/03/18 16:40 Pulse Oximetry 110 H 07/03/18 16:40 GENERAL: Weak confused elderly male HEENT: Head atraumatic,EOMI, pupils reactive CARDIOVASCULAR: Regular rate and rhythm without murmurs, rubs or gallops. RESPIRATORY: Breath sounds equal bilaterally, no wheezes rales or rhonchi. ABDOMEN: Soft, nontender. Normoactive bowel sounds all 4 quadrants. No guarding or rebound. Urostomy present clean urine EXTREMITIES: Normal range of motion, no clubbing or edema. Neurovascularly intact NEUROLOGICAL: Alert and oriented able to follow some commands moving all extremities SKIN: Warm, dry, no laceration, no petechiae, no rashes or lesions. <Ricky Hernandez DO - Last Filed: 07/04/18 00:23> Initial Vital Signs Initial Vital Signs: Vital Signs Temperature 101.6 F H 07/03/18 16:40 Pulse Rate 94 H 07/03/18 16:40 Respiratory Rate 19 07/03/18 16:40 Blood Pressure 144/68 H 07/03/18 16:40 Pulse Oximetry 110 H 07/03/18 16:40 Course <Shauna Evans DO - Last Filed: 07/04/18 07:16> Course Narrative: Patient signed out to Dr. Hernandez for disposition. Probable possible admit. Labs are still pending. Orders Ordered: ED Orders 07/04/18 XR chest 2V Routine 07/04/18 06:00 Basic Metabolic Panel Stat Complete Blood Count MAN DIFF Stat Magnesium Stat Acetaminophen (Tylenol) 650 mg PO Q6HR PRN PRN Reason: As Needed for Fever/Mild Pain Apixaban (Eliquis) 5 mg PO BID [facility] Aspirin (Aspirin Ec) 81 mg PO DAILY [facility] Atorvastatin Calcium (Lipitor) 40 mg PO DAILY [facility] Docusate Sodium (Colace) 100 mg PO BID [facility] Sodium Chloride (Normal Saline 0.9%) 1,000 mls @ 150 mls/hr IV CONT [facility] Last Admin: 07/04/18 05:39 Dose: 150 mls/hr Levothyroxine Sodium (Synthroid) 125 mcg PO DAILY [facility] Pregabalin (Lyrica) 150 mg PO TID [facility] Sennosides (Senna) 8.6 mg PO BID [facility] Discontinued Medications Acetaminophen (Tylenol) 650 mg PO NOW ONE Stop: 07/03/18 17:29 Last Admin: 07/03/18 17:29 Dose: 650 mg Acetaminophen (Tylenol) 975 mg PO NOW ONE Stop: 07/04/18 01:54 Last Admin: 07/04/18 03:05 Dose: 975 mg Sodium Chloride (Normal Saline 0.9%) 1,000 mls @ 200 mls/hr IV CONT FRED Last Infusion: 07/03/18 20:50 Dose: 0 mls/hr Infusion: 07/03/18 20:00 Dose: 999 mls/hr Infusion: 07/03/18 19:00 Dose: 400 mls/hr Infusion: 07/03/18 18:43 Dose: 1,000 mls/hr Admin: 07/03/18 17:29 Dose: 200 mls/hr Ceftriaxone Sodium/Dextrose (Rocephin) 1 gm in 50 mls @ 100 mls/hr IV NOW ONE Stop: 07/03/18 19:07 Last Infusion: 07/03/18 19:50 Dose: 0 mls/hr Admin: 07/03/18 18:48 Dose: 100 mls/hr Sodium Chloride (Normal Saline 0.9%) 1,000 mls @ 1,000 mls/hr IV BOLUS ONE Stop: 07/03/18 19:38 Last Admin: 07/03/18 20:25 Dose: Not Given Sodium Chloride (Normal Saline 0.9%) 1,000 mls @ 200 mls/hr IV BOLUS ONE Stop: 07/04/18 01:43 Last Infusion: 07/03/18 23:05 Dose: 1,000 mls/hr Infusion: 07/03/18 22:40 Dose: 1,000 mls/hr Admin: 07/03/18 20:51 Dose: 200 mls/hr Sodium Chloride (Normal Saline 0.9%) 500 mls @ 1,000 mls/hr IV BOLUS ONE Stop: 07/04/18 03:44 Last Infusion: 07/04/18 04:16 Dose: 0 mls/hr Admin: 07/04/18 03:43 Dose: 1,000 mls/hr Sodium Chloride (Normal Saline 0.9%) 500 mls @ 1,000 mls/hr IV BOLUS ONE Stop: 07/04/18 04:13 Last Admin: 07/04/18 04:17 Dose: Not Given Sodium Chloride (Normal Saline 0.9%) 1,000 mls @ 1,000 mls/hr IV BOLUS ONE Stop: 07/04/18 04:59 Last Infusion: 07/04/18 05:10 Dose: 0 mls/hr Admin: 07/04/18 04:09 Dose: 1,000 mls/hr Sodium Chloride (Normal Saline 0.9%) 1,000 mls @ 150 mls/hr IV CONT FRED Last Admin: 07/04/18 05:47 Dose: Not Given Ibuprofen (Advil) 400 mg PO NOW ONE Stop: 07/03/18 20:02 Last Admin: 07/03/18 20:51 Dose: 400 mg Ketorolac Tromethamine (Toradol) 15 mg IV NOW ONE Stop: 07/03/18 18:06 Last Admin: 07/03/18 18:53 Dose: Not Given Vital Signs - 8 hr 07/03/18 23:25 07/04/18 00:19 07/04/18 02:57 Temperature 101.8 F H 100.4 F H Pulse Rate 87 72 Respiratory Rate 20 14 Blood Pressure 103/54 L 85/50 L Pulse Oximetry 94 97 95 07/04/18 03:05 07/04/18 03:58 07/04/18 03:59 Temperature 100.4 F H Pulse Rate 70 Respiratory Rate Blood Pressure 89/51 L Pulse Oximetry 92 96 07/04/18 04:19 07/04/18 06:37 Temperature 98.5 F Pulse Rate 60 Respiratory Rate 16 Blood Pressure 115/65 Pulse Oximetry 95 97 <Ricky Hernandez, - Last Filed: 07/04/18 00:23> Orders Ordered: ED Orders 07/04/18 XR chest 2V Routine 07/04/18 06:00 Basic Metabolic Panel Stat Complete Blood Count MAN DIFF Stat Magnesium Stat Acetaminophen (Tylenol) 650 mg PO Q6HR PRN PRN Reason: As Needed for Fever/Mild Pain Apixaban (Eliquis) 5 mg PO BID [facility] Aspirin (Aspirin Ec) 81 mg PO DAILY [facility] Atorvastatin Calcium (Lipitor) 40 mg PO DAILY [facility] Docusate Sodium (Colace) 100 mg PO BID [facility] Sodium Chloride (Normal Saline 0.9%) 1,000 mls @ 150 mls/hr IV CONT FRED Last Admin: 07/04/18 05:39 Dose: 150 mls/hr Levothyroxine Sodium (Synthroid) 125 mcg PO DAILY [facility] Pregabalin (Lyrica) 150 mg PO TID [facility] Sennosides (Senna) 8.6 mg PO BID [facility] Discontinued Medications Acetaminophen (Tylenol) 650 mg PO NOW ONE Stop: 07/03/18 17:29 Last Admin: 07/03/18 17:29 Dose: 650 mg Acetaminophen (Tylenol) 975 mg PO NOW ONE Stop: 07/04/18 01:54 Last Admin: 07/04/18 03:05 Dose: 975 mg Sodium Chloride (Normal Saline 0.9%) 1,000 mls @ 200 mls/hr IV CONT [facility] Last Infusion: 07/03/18 20:50 Dose: 0 mls/hr Infusion: 07/03/18 20:00 Dose: 999 mls/hr Infusion: 07/03/18 19:00 Dose: 400 mls/hr Infusion: 07/03/18 18:43 Dose: 1,000 mls/hr Admin: 07/03/18 17:29 Dose: 200 mls/hr Ceftriaxone Sodium/Dextrose (Rocephin) 1 gm in 50 mls @ 100 mls/hr IV NOW ONE Stop: 07/03/18 19:07 Last Infusion: 07/03/18 19:50 Dose: 0 mls/hr Admin: 07/03/18 18:48 Dose: 100 mls/hr Sodium Chloride (Normal Saline 0.9%) 1,000 mls @ 1,000 mls/hr IV BOLUS ONE Stop: 07/03/18 19:38 Last Admin: 07/03/18 20:25 Dose: Not Given Sodium Chloride (Normal Saline 0.9%) 1,000 mls @ 200 mls/hr IV BOLUS ONE Stop: 07/04/18 01:43 Last Infusion: 07/03/18 23:05 Dose: 1,000 mls/hr Infusion: 07/03/18 22:40 Dose: 1,000 mls/hr Admin: 07/03/18 20:51 Dose: 200 mls/hr Sodium Chloride (Normal Saline 0.9%) 500 mls @ 1,000 mls/hr IV BOLUS ONE Stop: 07/04/18 03:44 Last Infusion: 07/04/18 04:16 Dose: 0 mls/hr Admin: 07/04/18 03:43 Dose: 1,000 mls/hr Sodium Chloride (Normal Saline 0.9%) 500 mls @ 1,000 mls/hr IV BOLUS ONE Stop: 07/04/18 04:13 Last Admin: 07/04/18 04:17 Dose: Not Given Sodium Chloride (Normal Saline 0.9%) 1,000 mls @ 1,000 mls/hr IV BOLUS ONE Stop: 07/04/18 04:59 Last Infusion: 07/04/18 05:10 Dose: 0 mls/hr Admin: 07/04/18 04:09 Dose: 1,000 mls/hr Sodium Chloride (Normal Saline 0.9%) 1,000 mls @ 150 mls/hr IV CONT FRED Last Admin: 07/04/18 05:47 Dose: Not Given Ibuprofen (Advil) 400 mg PO NOW ONE Stop: 07/03/18 20:02 Last Admin: 07/03/18 20:51 Dose: 400 mg Ketorolac Tromethamine (Toradol) 15 mg IV NOW ONE Stop: 07/03/18 18:06 Last Admin: 07/03/18 18:53 Dose: Not Given Vital Signs - 8 hr 07/03/18 23:25 07/04/18 00:19 07/04/18 02:57 Temperature 101.8 F H 100.4 F H Pulse Rate 87 72 Respiratory Rate 20 14 Blood Pressure 103/54 L 85/50 L Pulse Oximetry 94 97 95 07/04/18 03:05 07/04/18 03:58 07/04/18 03:59 Temperature 100.4 F H Pulse Rate 70 Respiratory Rate Blood Pressure 89/51 L Pulse Oximetry 92 96 07/04/18 04:19 07/04/18 06:37 Temperature 98.5 F Pulse Rate 60 Respiratory Rate 16 Blood Pressure 115/65 Pulse Oximetry 95 97 MDM - Fever <Shauna Evans DO - Last Filed: 07/04/18 07:16> Lab Data Attestation: I reviewed the patient's lab results. Result diagrams: 07/03/18 17:00 07/03/18 17:00 Lab Results 07/03/18 07/03/18 07/03/18 Range/Units 17:00 17:00 17:00 WBC 13.7 H (4.5-11.0) X10^3/uL RBC 4.28 L (4.5-5.9) X10^6/uL Hgb 12.5 L (13.5-17.5) g/dL Hct 37.8 L (41-53) % MCV 88.4 (80-100) fL MCH 29.2 (26-34) PG MCHC 33.0 (30-36) % RDW 13.4 (11.6-14.8) % Plt Count 242 (150-400) X10^3/uL Neut % (Auto) 93.9 H (50-75) % Lymph % (Auto) 2.6 L (25-40) % [place] % (Auto) 2.4 L (3-14) % Eos % (Auto) 0.8 L (2-4) % Baso % (Auto) 0.3 (0-2) % Neut # (Auto) 34150 H (3258-6183) /uL Lymph # (Auto) 400 L (8389-1230) /uL [place] # (Auto) 300 (0-900) /uL Eos # (Auto) 100 (0-450) /uL Baso # (Auto) 0 (0-100) /uL PT 14.5 H (10.1-12.7) SECONDS INR 1.2 (0.9-1.3) APTT 26 L (26.4-36.2) SECONDS Sodium (137-145) mmol/L Potassium (3.4-5.1) mmol/L Chloride (98-107) mmol/L Carbon Dioxide (22-32) mmol/L BUN (9-20) mg/dL Creatinine (0.66-1.25) mg/dL Estimated GFR (>60) mL/min BUN/Creatinine Ratio (6-22) Glucose (80-110) mg/dL Lactate (0.7-2.1) mmol/L Calcium (8.4-10.2) mg/dL Total Bilirubin (0.2-1.3) mg/dL AST (17-59) IU/L ALT (21-72) IU/L Alkaline Phosphatase (38-126) U/L Total Protein (6.3-8.2) g/dL Albumin (3.5-5.0) g/dL Globulin (1.7-4.1) g/dL Albumin/Globulin Ratio (1.0-2.8) Procalcitonin (<0.5) ng/mL Urine Color Urine Appearance Urine pH (4.5-8.0) Ur Specific [place] (1.000-1.035) Urine Protein (Negative) Urine Glucose (UA) (Negative) g/dL Urine Ketones (NEGATIVE) Urine Occult Blood (Negative) Urine Nitrate (Negative) Urine Bilirubin (NEGATIVE) Urine Urobilinogen (0.2) E.U./dL Ur Leukocyte Esterase (NEGATIVE) Urine RBC (0-5/HPF) Urine WBC (0-5/HPF) Ur Squamous Epith Cells Urine Bacteria (None) Ur Culture Indicated? Influenza A & B (PCR) Negative (Negative) 07/03/18 07/03/18 07/03/18 Range/Units 17:00 17:00 17:40 WBC (4.5-11.0) X10^3/uL RBC (4.5-5.9) X10^6/uL Hgb (13.5-17.5) g/dL Hct (41-53) % MCV (80-100) fL MCH (26-34) PG MCHC (30-36) % RDW (11.6-14.8) % Plt Count (150-400) X10^3/uL Neut % (Auto) (50-75) % Lymph % (Auto) (25-40) % [place] % (Auto) (3-14) % Eos % (Auto) (2-4) % Baso % (Auto) (0-2) % Neut # (Auto) (7495-8953) /uL Lymph # (Auto) (0502-2146) /uL [place] # (Auto) (0-900) /uL Eos # (Auto) (0-450) /uL Baso # (Auto) (0-100) /uL PT (10.1-12.7) SECONDS INR (0.9-1.3) APTT (26.4-36.2) SECONDS Sodium 129 L (137-145) mmol/L Potassium 4.9 (3.4-5.1) mmol/L Chloride 91 L (98-107) mmol/L Carbon Dioxide 27 (22-32) mmol/L BUN 16 (9-20) mg/dL Creatinine 1.00 (0.66-1.25) mg/dL Estimated GFR > 60.0 (>60) mL/min BUN/Creatinine Ratio 16.0 (6-22) Glucose 101 (80-110) mg/dL Lactate 2.5 H (0.7-2.1) mmol/L Calcium 9.0 (8.4-10.2) mg/dL Total Bilirubin 0.5 (0.2-1.3) mg/dL AST 41 (17-59) IU/L ALT 23 (21-72) IU/L Alkaline Phosphatase 75 (38-126) U/L Total Protein 7.6 (6.3-8.2) g/dL Albumin 4.5 (3.5-5.0) g/dL Globulin 3.1 (1.7-4.1) g/dL Albumin/Globulin Ratio 1.5 (1.0-2.8) Procalcitonin 0.16 (<0.5) ng/mL Urine Color Urine Appearance Urine pH (4.5-8.0) Ur Specific [place] (1.000-1.035) Urine Protein (Negative) Urine Glucose (UA) (Negative) g/dL Urine Ketones (NEGATIVE) Urine Occult Blood (Negative) Urine Nitrate (Negative) Urine Bilirubin (NEGATIVE) Urine Urobilinogen (0.2) E.U./dL Ur Leukocyte Esterase (NEGATIVE) Urine RBC (0-5/HPF) Urine WBC (0-5/HPF) Ur Squamous Epith Cells Urine Bacteria (None) Ur Culture Indicated? Influenza A & B (PCR) (Negative) 07/03/18 07/03/18 Range/Units 17:40 22:09 WBC (4.5-11.0) X10^3/uL RBC (4.5-5.9) X10^6/uL Hgb (13.5-17.5) g/dL Hct (41-53) % MCV (80-100) fL MCH (26-34) PG MCHC (30-36) % RDW (11.6-14.8) % Plt Count (150-400) X10^3/uL Neut % (Auto) (50-75) % Lymph % (Auto) (25-40) % [place] % (Auto) (3-14) % Eos % (Auto) (2-4) % Baso % (Auto) (0-2) % Neut # (Auto) (1316-2182) /uL Lymph # (Auto) (9730-1284) /uL [place] # (Auto) (0-900) /uL Eos # (Auto) (0-450) /uL Baso # (Auto) (0-100) /uL PT (10.1-12.7) SECONDS INR (0.9-1.3) APTT (26.4-36.2) SECONDS Sodium (137-145) mmol/L Potassium (3.4-5.1) mmol/L Chloride (98-107) mmol/L Carbon Dioxide (22-32) mmol/L BUN (9-20) mg/dL Creatinine (0.66-1.25) mg/dL Estimated GFR (>60) mL/min BUN/Creatinine Ratio (6-22) Glucose (80-110) mg/dL Lactate 0.8 (0.7-2.1) mmol/L Calcium (8.4-10.2) mg/dL Total Bilirubin (0.2-1.3) mg/dL AST (17-59) IU/L ALT (21-72) IU/L Alkaline Phosphatase (38-126) U/L Total Protein (6.3-8.2) g/dL Albumin (3.5-5.0) g/dL Globulin (1.7-4.1) g/dL Albumin/Globulin Ratio (1.0-2.8) Procalcitonin (<0.5) ng/mL Urine Color Yellow Urine Appearance Cloudy Urine pH 7.0 (4.5-8.0) Ur Specific [place] 1.010 (1.000-1.035) Urine Protein 1+ H (Negative) Urine Glucose (UA) Negative (Negative) g/dL Urine Ketones Negative (NEGATIVE) Urine Occult Blood 3+ H (Negative) Urine Nitrate Positive (Negative) Urine Bilirubin Negative (NEGATIVE) Urine Urobilinogen 0.2 (0.2) E.U./dL Ur Leukocyte Esterase 3+ H (NEGATIVE) Urine RBC 5-10/hpf H (0-5/HPF) Urine WBC 10-30/hpf H (0-5/HPF) Ur Squamous Epith Cells 0-1 /hpf Urine Bacteria Many (>30) H (None) Ur Culture Indicated? Specimen cultured Influenza A & B (PCR) (Negative) <Ricky Hernandez - Last Filed: 07/04/18 00:23> Lab Data Lab Results 07/03/18 07/03/18 07/03/18 Range/Units 17:00 17:00 17:00 WBC 13.7 H (4.5-11.0) X10^3/uL RBC 4.28 L (4.5-5.9) X10^6/uL Hgb 12.5 L (13.5-17.5) g/dL Hct 37.8 L (41-53) % MCV 88.4 (80-100) fL MCH 29.2 (26-34) PG MCHC 33.0 (30-36) % RDW 13.4 (11.6-14.8) % Plt Count 242 (150-400) X10^3/uL Neut % (Auto) 93.9 H (50-75) % Lymph % (Auto) 2.6 L (25-40) % [place] % (Auto) 2.4 L (3-14) % Eos % (Auto) 0.8 L (2-4) % Baso % (Auto) 0.3 (0-2) % Neut # (Auto) 48877 H (4297-2465) /uL Lymph # (Auto) 400 L (3324-4376) /uL [place] # (Auto) 300 (0-900) /uL Eos # (Auto) 100 (0-450) /uL Baso # (Auto) 0 (0-100) /uL PT 14.5 H (10.1-12.7) SECONDS INR 1.2 (0.9-1.3) APTT 26 L (26.4-36.2) SECONDS Sodium (137-145) mmol/L Potassium (3.4-5.1) mmol/L Chloride (98-107) mmol/L Carbon Dioxide (22-32) mmol/L BUN (9-20) mg/dL Creatinine (0.66-1.25) mg/dL Estimated GFR (>60) mL/min BUN/Creatinine Ratio (6-22) Glucose (80-110) mg/dL Lactate (0.7-2.1) mmol/L Calcium (8.4-10.2) mg/dL Total Bilirubin (0.2-1.3) mg/dL AST (17-59) IU/L ALT (21-72) IU/L Alkaline Phosphatase (38-126) U/L Total Protein (6.3-8.2) g/dL Albumin (3.5-5.0) g/dL Globulin (1.7-4.1) g/dL Albumin/Globulin Ratio (1.0-2.8) Procalcitonin (<0.5) ng/mL Urine Color Urine Appearance Urine pH (4.5-8.0) Ur Specific [place] (1.000-1.035) Urine Protein (Negative) Urine Glucose (UA) (Negative) g/dL Urine Ketones (NEGATIVE) Urine Occult Blood (Negative) Urine Nitrate (Negative) Urine Bilirubin (NEGATIVE) Urine Urobilinogen (0.2) E.U./dL Ur Leukocyte Esterase (NEGATIVE) Urine RBC (0-5/HPF) Urine WBC (0-5/HPF) Ur Squamous Epith Cells Urine Bacteria (None) Ur Culture Indicated? Influenza A & B (PCR) Negative (Negative) 07/03/18 07/03/18 07/03/18 Range/Units 17:00 17:00 17:40 WBC (4.5-11.0) X10^3/uL RBC (4.5-5.9) X10^6/uL Hgb (13.5-17.5) g/dL Hct (41-53) % MCV (80-100) fL MCH (26-34) PG MCHC (30-36) % RDW (11.6-14.8) % Plt Count (150-400) X10^3/uL Neut % (Auto) (50-75) % Lymph % (Auto) (25-40) % [place] % (Auto) (3-14) % Eos % (Auto) (2-4) % Baso % (Auto) (0-2) % Neut # (Auto) (2591-1381) /uL Lymph # (Auto) (3506-0312) /uL [place] # (Auto) (0-900) /uL Eos # (Auto) (0-450) /uL Baso # (Auto) (0-100) /uL PT (10.1-12.7) SECONDS INR (0.9-1.3) APTT (26.4-36.2) SECONDS Sodium 129 L (137-145) mmol/L Potassium 4.9 (3.4-5.1) mmol/L Chloride 91 L (98-107) mmol/L Carbon Dioxide 27 (22-32) mmol/L BUN 16 (9-20) mg/dL Creatinine 1.00 (0.66-1.25) mg/dL Estimated GFR > 60.0 (>60) mL/min BUN/Creatinine Ratio 16.0 (6-22) Glucose 101 (80-110) mg/dL Lactate 2.5 H (0.7-2.1) mmol/L Calcium 9.0 (8.4-10.2) mg/dL Total Bilirubin 0.5 (0.2-1.3) mg/dL AST 41 (17-59) IU/L ALT 23 (21-72) IU/L Alkaline Phosphatase 75 (38-126) U/L Total Protein 7.6 (6.3-8.2) g/dL Albumin 4.5 (3.5-5.0) g/dL Globulin 3.1 (1.7-4.1) g/dL Albumin/Globulin Ratio 1.5 (1.0-2.8) Procalcitonin 0.16 (<0.5) ng/mL Urine Color Urine Appearance Urine pH (4.5-8.0) Ur Specific [place] (1.000-1.035) Urine Protein (Negative) Urine Glucose (UA) (Negative) g/dL Urine Ketones (NEGATIVE) Urine Occult Blood (Negative) Urine Nitrate (Negative) Urine Bilirubin (NEGATIVE) Urine Urobilinogen (0.2) E.U./dL Ur Leukocyte Esterase (NEGATIVE) Urine RBC (0-5/HPF) Urine WBC (0-5/HPF) Ur Squamous Epith Cells Urine Bacteria (None) Ur Culture Indicated? Influenza A & B (PCR) (Negative) 07/03/18 07/03/18 Range/Units 17:40 22:09 WBC (4.5-11.0) X10^3/uL RBC (4.5-5.9) X10^6/uL Hgb (13.5-17.5) g/dL Hct (41-53) % MCV (80-100) fL MCH (26-34) PG MCHC (30-36) % RDW (11.6-14.8) % Plt Count (150-400) X10^3/uL Neut % (Auto) (50-75) % Lymph % (Auto) (25-40) % [place] % (Auto) (3-14) % Eos % (Auto) (2-4) % Baso % (Auto) (0-2) % Neut # (Auto) (7709-3086) /uL Lymph # (Auto) (8566-2808) /uL [place] # (Auto) (0-900) /uL Eos # (Auto) (0-450) /uL Baso # (Auto) (0-100) /uL PT (10.1-12.7) SECONDS INR (0.9-1.3) APTT (26.4-36.2) SECONDS Sodium (137-145) mmol/L Potassium (3.4-5.1) mmol/L Chloride (98-107) mmol/L Carbon Dioxide (22-32) mmol/L BUN (9-20) mg/dL Creatinine (0.66-1.25) mg/dL Estimated GFR (>60) mL/min BUN/Creatinine Ratio (6-22) Glucose (80-110) mg/dL Lactate 0.8 (0.7-2.1) mmol/L Calcium (8.4-10.2) mg/dL Total Bilirubin (0.2-1.3) mg/dL AST (17-59) IU/L ALT (21-72) IU/L Alkaline Phosphatase (38-126) U/L Total Protein (6.3-8.2) g/dL Albumin (3.5-5.0) g/dL Globulin (1.7-4.1) g/dL Albumin/Globulin Ratio (1.0-2.8) Procalcitonin (<0.5) ng/mL Urine Color Yellow Urine Appearance Cloudy Urine pH 7.0 (4.5-8.0) Ur Specific [place] 1.010 (1.000-1.035) Urine Protein 1+ H (Negative) Urine Glucose (UA) Negative (Negative) g/dL Urine Ketones Negative (NEGATIVE) Urine Occult Blood 3+ H (Negative) Urine Nitrate Positive (Negative) Urine Bilirubin Negative (NEGATIVE) Urine Urobilinogen 0.2 (0.2) E.U./dL Ur Leukocyte Esterase 3+ H (NEGATIVE) Urine RBC 5-10/hpf H (0-5/HPF) Urine WBC 10-30/hpf H (0-5/HPF) Ur Squamous Epith Cells 0-1 /hpf Urine Bacteria Many (>30) H (None) Ur Culture Indicated? Specimen cultured Influenza A & B (PCR) (Negative) Imaging Data Chest x-ray: Radiologist's impression: Francisco J Albarran W 82 M [address] [id number] XRay Report Signed Patient: Francisco J Albarran WMR#: [id number] : [id number]:[id number] Age/Sex: 82 / MDate of Service: 07/03/18 Loc: ED Accession Number: [id number] Procedure: XR chest 1V Ordering Provider: Shauna Evans D.O. PROCEDURE: XR CHEST 1V INDICATIONS: fever weakness TECHNIQUE: One view of the chest was acquired. COMPARISON: Outside Film, CR, XR CHEST 2 VIEWS, 03/25/2018, 15:46. [facility], CR, XR CHEST 1V, 11/09/2017, 18:14. FINDINGS: Surgical changes and devices: Thyroidectomy. Lungs and pleura: Lungs are clear. No pleural effusions or pneumothorax. Mediastinum: Mediastinal contours appear normal. Heart size is normal. Bones and chest wall: No suspicious bony lesions. Overlying soft tissues appear unremarkable. IMPRESSION: No acute cardiopulmonary disease. Dictated by: Prema Spencer M.D. on 07/03/2018 at 18:18 Approved by: Prema Spencer M.D. on 07/03/2018 at 18:19 MDM Narrative Medical decision making narrative: Received turned over from day provider. Performed my own history and physical exam. Reviewed patient's labs. During my exam the patient was alert and oriented x3 and stated that he felt much better. His fever had improved. He did have an elevated white blood cell count, lactate of 2.5. Flu was negative. Urine is nitrite positive. This is most likely the source of his fevers. An initial discussion with the family regarding his symptoms. Patient clinically looked very well. He was given Rocephin. We discussed the possibility of them going home and doing oral antibiotics for his urinary tract infection versus being admitted to the hospital. Initially family was okay with going home and patient wanted to go home however just prior to discharge he started to have rigors again. Temp erature was slightly elevated at 99. Patient then stated that he no longer felt comfortable going home. Patient was never hypotensive. I felt that the 30 cc/kilos of fluids was unnecessary and his situation. I suspect that his altered mental status was secondary to the fever which was resolved by the time that I evaluated him. I discussed the case with the night hospitalist who will admit the patient for further evaluation and treatment. Discussed the admission with family who expressed understanding and agreement. Discharge Plan Departure Patient Disposition: Admitted As Inpatient Clinical Impression: Urinary tract infection Qualifiers: Urinary tract infection type: acute cystitis Hematuria presence: with hematuria Qualified Code(s): N30.01 - Acute cystitis with hematuria Sepsis Qualifiers: Sepsis type: sepsis due to unspecified organism Qualified Code(s): A41.9 - Sepsis, unspecified organism Discharge Date/Time: 07/03/18 23:10 Interventions: ED Discharge Assessment Last Done: 07/03/18 23:09 Admit Date/Time: 07/03/18 21:06 Admit Provider: Bowen Alejandra
[2018-07-03] MEDS: ACETAMINOPHEN 325 MG TABLET 650 MG PO (17:29)
[2018-07-03] MEDS: SODIUM CHLORIDE 0.9% 1,000 ML 200 ML IV ×2 (17:29→20:51)
--- NOTE | 2018-07-03 17:36 | PC.NURSE ---
family reports, sudden onset of fever,shaking at 1300 today. denies chest pain, shortness of breath, denies coughing or nasal congestions. denies abdominal pain or nausea. bilateral cheeks reddened, hx of rocesia. reports, pt was admitted for hyponatremia a montha ago and bp meds has been dcd then. pt arrived with urostomy (500ml yellow urine with occasional strands noted) pt disoriented to time, states, 2008. pt aware of family , and daughter.
[2018-07-03 17:39] LABS: Add Manual Diff / Slide Review NO; Basophils Absolute Auto 0 /uL (0-100); Basophils Percent Auto 0.3 % (0-2); Eosinophils Absolute Auto 100 /uL (0-450); Eosinophils Percent Auto 0.8 % (2-4); Hematocrit 37.8 % (41-53); Hemoglobin 12.5 g/dL (13.5-17.5); Lymphocytes Absolute Auto 400 /uL (1100-4500); Lymphocytes Percent Auto 2.6 % (25-40); Mean Corpuscular Hemoglobin 29.2 PG (26-34); Mean Corpuscular Volume 88.4 fL (80-100); Monocytes Absolute Auto 300 /uL (0-900); Monocytes Percent Auto 2.4 % (3-14); Neutrophils Absolute Auto 12900 /uL (1500-7000); Neutrophils Percent Auto 93.9 % (50-75); Platelet Count 242 X10^3/uL (150-400); Red Blood Cell Count 4.28 X10^6/uL (4.5-5.9); Red Cell Distribution Width 13.4 % (11.6-14.8); White Blood Cell Count 13.7 X10^3/uL (4.5-11.0)
[2018-07-03 17:40] LABS: INR 1.2 (0.9-1.3); Prothrombin Time 14.5 SECONDS (10.1-12.7)
--- NOTE | 2018-07-03 17:40 | PC.NURSE ---
urostomy drained 500ml, urine obtained and sent to lab
[2018-07-03 17:42] LABS: PTT Partial Thromboplastin Tim 26 SECONDS (26.4-36.2)
[2018-07-03 17:43] LABS: Alanine Aminotransferase 23 IU/L (21-72); Albumin 4.5 g/dL (3.5-5.0); Albumin Globulin Ratio 1.5 (1.0-2.8); Alkaline Phosphatase 75 U/L (38-126); Aspartate Aminotransferase 41 IU/L (17-59); Bilirubin Total 0.5 mg/dL (0.2-1.3); Blood Urea Nitrogen 16 mg/dL (9-20); Carbon Dioxide 27 mmol/L (22-32); Chloride 91 mmol/L (98-107); Estimated Glomerular Filt Rate > 60.0 mL/min (>60); Globulin 3.1 g/dL (1.7-4.1); Glucose 101 mg/dL (80-110); HEMOLYSIS < 15 (0-50); Potassium 4.9 mmol/L (3.4-5.1); Sodium 129 mmol/L (137-145); Total Protein 7.6 g/dL (6.3-8.2)
[2018-07-03 17:56] LABS: Appearance Urine UA CLOUDY; Bilirubin Urine UA NEGATIVE (NEGATIVE); Color Urine UA YELLOW; Glucose Urine UA NEGATIVE (Negative); Ketones Urine UA NEGATIVE (NEGATIVE); Leukocyte Esterase Urine UA 3+ (NEGATIVE); Nitrite Urine UA POSITIVE (Negative); Occult Blood Urine UA 3+ (Negative); Protein Urine UA 1+ (Negative); Urobilinogen Urine UA 0.2 E.U./dL (0.2)
[2018-07-03 18:04] LABS: Bacteria Urine Many (>30); Culture Indicated Urine Specimen Cultured; RBC Urine 5-10/HPF (0-5/HPF); Squamous Epithelial Cell Urine 0-1 /HPF; WBC Urine 10-30/HPF (0-5/HPF)
[2018-07-03 18:09] LABS: Lactate (Lactic Acid) 2.5 mmol/L (0.7-2.1)
[2018-07-03 18:21] LABS: Procalcitonin 0.16 ng/mL (<0.5)
[2018-07-03 18:37] LABS: Influenza A and B by PCR Rapid Negative (Negative)
--- NOTE | 2018-07-03 18:42 | PC.NURSE ---
increasing in alertness, heart rate improved. increase ivfluids per dr rodriguez.
[2018-07-03] MEDS: CEFTRIAXONE 1 GM/50 ML FROZ.PIGGY IV (18:48)
--- NOTE | 2018-07-03 18:48 | PC.NURSE ---
toradol cancel per dr rodriguez
[2018-07-03] MEDS: IBUPROFEN 400 MG TABLET PO (20:51)
[2018-07-03 21:53] LABS: Reflexed Lactate in 2 Hours Y
[2018-07-03 22:27] LABS: Lactate 2HR (Lactic Acid Rflx) 0.8 mmol/L (0.7-2.1)
--- NOTE | 2018-07-03 23:05 | PC.NURSE ---
Pt's sbp in 90s. Provider aware. Gave order to bolus 2nd liter of fluid. Turned rate up to 1000 at time of new order.
[2018-07-04] VITALS (17 sets, daily range): BP systolic 85–128; BP diastolic 50–65; PULSE 58–72; RESP 14–20; TEMP 36.1–38; O2SAT 92–98
--- NOTE | 2018-07-04 | DI.RAD.S_ITS ---
PROCEDURE: XR CHEST 2V INDICATIONS: sepsis, dyspnea TECHNIQUE: 2 views of the chest were acquired. COMPARISON: [facility], CR, XR CHEST 1V, 07/03/2018, 17:49. FINDINGS: Surgical changes and devices: Surgical clips at the base of the neck bilaterally. Lungs and pleura: Subtle hazy opacity and peribronchial thickening seen in the left mid to lower lung, and mild peribronchial thickening in the right lung. Blunting of the costophrenic sulci posteriorly suggesting small bilateral effusions. Mediastinum: Mediastinal contours demonstrate tortuosity of the thoracic aorta.. Heart size is normal. Bones and chest wall: No suspicious bony abnormalities. Soft tissues appear unremarkable. IMPRESSION: 1. Changes of peribronchial thickening/bronchitis and a subtle opacity in the left midlung may be early airspace disease. 2. Small bilateral pleural effusions posteriorly versus pleural tethering. Dictated by: Kaci Salas M.D. on 07/04/2018 at 9:15 Approved by: Kaci Salas M.D. on 07/04/2018 at 9:18
--- NOTE | 2018-07-04 01:15 | P.HP_ITS ---
History of Present Illness Date Patient Seen: 07/04/18 Time Patient Seen: 01:14 Chief complaint: blood pressure all over the place, josue Narrative: PMH: bladder cancer (h/o chronic urostomy), prostate cancer, thyroid cancer, nephrolithiasis (x1, passed), CAD, HTN, surgical hypothyroidism (s/p thyroidectomy), vertigo, h/o left hip fx (10/2017, s/p ORIF), chronic anticoagulation (apixaban, re ?), chronic constipation The patient is an 82-year-old male with aforementioned PMHx, presented to the ED on 07/03/2018 to be evaluated for fever and chills. Symptom onset is sudden, initially noted at 1300 on 07/03/2018. Associated symptoms include disorientation and malaise. Baseline mental status known to be alert and oriented x3. Reports experiencing dizziness, however not worse than usual ( underlying history of vertigo, on meclizine daily). Patient has not experienced CP, palpitations, syncopal events, dyspnea, peripheral edema, abdominal pain, or gastrointestinal distress. Notes there is some residual blood via urostomy, but no overt bleeding. Appetite and weight stable, no change in weight. Denies N/V/D. In fact, has constipation, BM pattern Q3 days. Endorses an overall decreased mobility, has required more frequent use of an assistive device (cane) for ambulation. Patient is known to have chronic urostomy secondary to a h/o bladder cancer. urostomy has been in place for 15 years. Patient notes management of the urostomy himself. Typically changes out 1-2 times weekly. Last change on 07/03/2018 prior to ED presentation. Patient denies contact with ill persons. Known to have had a short inpatient hospitalization for hyponatremia earlier in the month which was associated with use of hydrochlorothiazide, since then the medication has been discontinued. Patient is on chronic Eliquis anticoagulation, the reason is not entirely known. He reports history of CAD and IA, but does not endorse any cardiac interventions. Denies history of an arrhythmia, valvular heart disease, PVD, cerebrovascular events, or thrombosis. States that he was placed on Eliquis in the past year. follows with Dr. Mueller (cardiology) and Arpita Santos NP (P CP). ED Work-Up Temp 101.6 BP 144/68 HR 94 RR 19 WBC 13.7 HGB 12.5 PLT 242 NA 129 K 4.9 CL 91 CA 9.0 CO2 27 BUN 16 CR 1.0 , ratio 16.0 liver enzymes WNL Lactic acid 2.5 PCT 0.16 influenza negative UA (sample from urostomy collection bag), protein 1+ blood 3+ RBC 5-10 HPF leukocyte esterase 3+ nitrate positive WBC 10-30 HPF bacteria > 30 In ED treated with acetaminophen 650 mg (fever), ibuprofen 400 mg (fever), IVF 1000 ml of 2421 ml NS bolus per sepsis protocol completed in ED, and ceftrixone 1 gm (cystitis). Other: mental status improvement noted in the ED Patient History Medical History Bladder cancer (Acute) Coronary artery disease (Acute) Hypertension (Acute) Hyponatremia (Acute) Hypothyroid (Acute) Kidney stones (Acute) Prostate cancer (Acute) Thyroid cancer (Acute) Surgical History H/O colectomy (Acute) H/O thyroidectomy (Acute) History of appendectomy (Acute) History of urostomy (Acute) Family History Father Alcoholism Mother Alcoholism Social History household members: spouse and family Smoking Status: Former smoker alcohol intake: former substance use type: does not use Family & Social History Family History Father Alcoholism Mother Alcoholism Social History: household members spouse,family Safety & Behavioral: Feels Safe in Current Yes Environment Tobacco & Substance use: Smoking Status Former smoker alcohol intake Former alcohol intake frequency Holiday/special occasion Substance Use Type Denies prior and current use Meds Home Medications Medication Instructions Recorded Confirmed Type aspirin 1 tab PO DAILY 11/07/17 07/04/18 History atorvastatin 1 tab PO DAILY 11/07/17 07/04/18 History docusate calcium 1 cap PO QPM 11/07/17 07/04/18 History levothyroxine 1 tab PO DAILY 11/07/17 07/04/18 History losartan 1 tab PO DAILY 11/07/17 07/04/18 History pregabalin 1 cap PO TID 11/07/17 07/04/18 History amlodipine 1 tab PO DAILY 06/11/18 07/04/18 History apixaban 1 tab PO BID 06/11/18 07/04/18 History diphenhydramine-acetaminophen 1 tab PO BEDTIME PRN 06/11/18 07/04/18 History [Acetaminophen PM] docusate sodium 100 mg PO BID 06/11/18 07/04/18 History meclizine 25 mg PO TID PRN 06/11/18 07/04/18 History metoprolol succinate 1 tab PO DAILY 06/11/18 07/04/18 History sennosides [senna] 8.6 mg PO BID 06/11/18 07/04/18 History ciprofloxacin HCl [Cipro] 500 mg PO BID 7 Days #14 tab 07/03/18 Rx Allergies Allergy/AdvReac Type Severity Reaction Status Date / Time No Known Drug Allergies Allergy Verified 11/07/17 20:47 Review of Systems Review of Systems All systems reviewed & are unremarkable except as noted in HPI and below Exam Vital Signs (past 8 hours): - 07/03/18 17:29 07/03/18 17:41 07/03/18 17:55 Temperature 101 F H 104.4 F H Pulse Rate 93 H Respiratory Rate 18 Blood Pressure Blood Pressure [Left Arm] 126/73 Pulse Oximetry 100 07/03/18 18:42 07/03/18 18:44 07/03/18 19:19 Temperature 102.5 F H Pulse Rate 85 85 Respiratory Rate 16 20 Blood Pressure Blood Pressure [Left Arm] 112/54 L 108/56 L Pulse Oximetry 92 07/03/18 20:43 07/03/18 20:51 07/03/18 21:30 Temperature 102.6 F H 102.6 F H Pulse Rate 94 H 89 Respiratory Rate 25 H 18 Blood Pressure Blood Pressure [Left Arm] 141/97 H 95/49 L Pulse Oximetry 96 92 07/03/18 23:04 07/03/18 23:06 07/03/18 23:07 Temperature 101.2 F H 101.2 F H Pulse Rate 89 88 Respiratory Rate 18 19 Blood Pressure Blood Pressure [Left Arm] 94/55 L 93/87 Pulse Oximetry 94 93 07/03/18 23:25 07/04/18 00:19 Temperature 101.8 F H Pulse Rate 87 Respiratory Rate 20 Blood Pressure 103/54 L Blood Pressure [Left Arm] Pulse Oximetry 94 97 Oxygen Delivery Method Room Air Oxygen Flow Rate 0 Narrative Exam Narrative: GENERAL: no acute distress NEURO: AOx3, forgetful, no focal anomalies HEENT NC, AT Gaze conjugate, pupils round equal and reactive, EOMI, sclerae anicteric External ears normal, no otorrhea, Hearing acuity intact External nose normal, no epistaxis, no sinus drainage DRY MM, oropharynx without inflammation or lesions HEART: S1-S2, no murmur, no palpable devices CHEST and LUNGS: symmetrical rise, no tachypnea CTA RUL, RML, GILDARDO and DIMINISHED RLL and LLL Conversational dyspnea noted (mild), on room air LOWER EXTREMITIES: sensation intact, by pedal pulses palpable 1+, slightly cool, no mottling PERIPHERAL EDEMA: absent ABDOMEN soft, NT, mildly distended, normoactive BS, RLQ stoma - pink, w/o s/s of necrosis, urostomy bag over the stoma is intact and attached to dependent drainage system MUSCULOSKELETAL: generalized weakness, adequate muscle tone, no palpable joint tenderness or effusion SKIN: pale in appearance, no mottling, no ecchymosis, no suspicious lesions noted Objective Labs Result Diagrams: 07/03/18 17:00 07/03/18 17:00 Labs: Laboratory Results - last 24 hr 07/03/18 07/03/18 07/03/18 17:00 17:00 17:00 WBC 13.7 H RBC 4.28 L Hgb 12.5 L Hct 37.8 L MCV 88.4 MCH 29.2 MCHC 33.0 RDW 13.4 Plt Count 242 Neut % (Auto) 93.9 H Lymph % (Auto) 2.6 L Delta % (Auto) 2.4 L Eos % (Auto) 0.8 L Baso % (Auto) 0.3 Neut # (Auto) 82623 H Lymph # (Auto) 400 L Delta # (Auto) 300 Eos # (Auto) 100 Baso # (Auto) 0 PT 14.5 H INR 1.2 APTT 26 L Sodium Potassium Chloride Carbon Dioxide BUN Creatinine Estimated GFR BUN/Creatinine Ratio Glucose Lactate Calcium Total Bilirubin AST ALT Alkaline Phosphatase Total Protein Albumin Globulin Albumin/Globulin Ratio Procalcitonin Urine Color Urine Appearance Urine pH Ur Specific [place] Urine Protein Urine Glucose (UA) Urine Ketones Urine Occult Blood Urine Nitrate Urine Bilirubin Urine Urobilinogen Ur Leukocyte Esterase Urine RBC Urine WBC Ur Squamous Epith Cells Urine Bacteria Ur Culture Indicated? Influenza A & B (PCR) Negative 07/03/18 07/03/18 07/03/18 17:00 17:00 17:40 WBC RBC Hgb Hct MCV MCH MCHC RDW Plt Count Neut % (Auto) Lymph % (Auto) Delta % (Auto) Eos % (Auto) Baso % (Auto) Neut # (Auto) Lymph # (Auto) Delta # (Auto) Eos # (Auto) Baso # (Auto) PT INR APTT Sodium 129 L Potassium 4.9 Chloride 91 L Carbon Dioxide 27 BUN 16 Creatinine 1.00 Estimated GFR > 60.0 BUN/Creatinine Ratio 16.0 Glucose 101 Lactate 2.5 H Calcium 9.0 Total Bilirubin 0.5 AST 41 ALT 23 Alkaline Phosphatase 75 Total Protein 7.6 Albumin 4.5 Globulin 3.1 Albumin/Globulin Ratio 1.5 Procalcitonin 0.16 Urine Color Urine Appearance Urine pH Ur Specific [place] Urine Protein Urine Glucose (UA) Urine Ketones Urine Occult Blood Urine Nitrate Urine Bilirubin Urine Urobilinogen Ur Leukocyte Esterase Urine RBC Urine WBC Ur Squamous Epith Cells Urine Bacteria Ur Culture Indicated? Influenza A & B (PCR) 07/03/18 07/03/18 17:40 22:09 WBC RBC Hgb Hct MCV MCH MCHC RDW Plt Count Neut % (Auto) Lymph % (Auto) Delta % (Auto) Eos % (Auto) Baso % (Auto) Neut # (Auto) Lymph # (Auto) Delta # (Auto) Eos # (Auto) Baso # (Auto) PT INR APTT Sodium Potassium Chloride Carbon Dioxide BUN Creatinine Estimated GFR BUN/Creatinine Ratio Glucose Lactate 0.8 Calcium Total Bilirubin AST ALT Alkaline Phosphatase Total Protein Albumin Globulin Albumin/Globulin Ratio Procalcitonin Urine Color Yellow Urine Appearance Cloudy Urine pH 7.0 Ur Specific [place] 1.010 Urine Protein 1+ H Urine Glucose (UA) Negative Urine Ketones Negative Urine Occult Blood 3+ H Urine Nitrate Positive Urine Bilirubin Negative Urine Urobilinogen 0.2 Ur Leukocyte Esterase 3+ H Urine RBC 5-10/hpf H Urine WBC 10-30/hpf H Ur Squamous Epith Cells 0-1 /hpf Urine Bacteria Many (>30) H Ur Culture Indicated? Specimen cultured Influenza A & B (PCR) Assessment & Plan Assessment & Plan narrative: 1. Acute cystitis with microscopic hematuria, present on admission - Rocephin - urine culture pending - supportive care 2. Infection of incontinent external stoma of urinary tract - See plan of care for #1 3. Sepsis suspected source: urine temp 101.1, HR 94, WBC 13.7, lactate 2.5, metabolic encephalopathy, hypotension - blood and urine cx collected in the ED, pending, to be followed - chest x-ray - IVF bolus per sepsis protocol, continue maintenance fluids at 150 ml/hr - trend lactate - supportive care, analgesics - supplemental oxygen to keep SpO2 > 94% - telemetry monitoring - strict I/Os - CBC, BMP, Mg in am 4. Metabolic encephalopathy, acute, secondary to acute cystitis, improving - neuro checks Q4H x24, then may d/c if stable 5. Acute hypotension 2/2 sepsis and hypovolemia, patient is asymptomatic - trend BP - still not completed original sepsis bolus as running at 200 ml/hr, will complete remainder over 30-60 min. Then start maintenance rate at 150 ml/hr. - maintain MAP > 65 mmHg - if hypotension continues, then will need to transfer to ICU and started on pressors - hold [employer] anti-hypertensives, ie BB, CCB, and ARB 6. Hypovolemia Na 129 Cl 91. Reports putting out 9680-6506 ml via urostomy daily. - IVF 7. Essential hypertension, chronic condition, labile - trend BP, labile - hold [employer] anti-hypertensive agents in the setting of sepsis, to be re- evaluated daily 8. Generalized weakness, acute multi-factorial... underlying infection, hypermetabolic state, hyponatremia - treat underlying pathology - PT / OT eval and treat, re: generalized weakness, at high risk for de- conditioning related to hospital admission 9. Chronic AC w/ Eliquis, it is not entirely clear why patient is anticoagulated. - Resume [employer] Eliquis - Request records from Cardiology 10. CAD, stable chronic condition, no active angina - Resume [employer] ASA and statin 11. Surgical hypothyroidism, h/o thyroid cancer, stable chronic condition - resume [employer] levothyroxine 12. Normocytic normochromic anemia (HGB 12.5 g/dL on presentation), chronic condition baseline Hgb 9.3 ? 11.3 g/dL, hemo-concentrated ? - trend CBC w/ routine lab, no active signs of blood loss 13. peripheral neuropathy, stable chronic condition, resume Lyrica Code status: full code DPOA: spouse Home medications reviewed and reconciled accordingly VTE prophylaxis: on Eliquis, resumed Quality VTE Deep Vein Thrombosis/Pulmonary Embolism Present on Admission: No
[2018-07-04] MEDS: ACETAMINOPHEN 325 MG TABLET 975 MG PO (03:05)
[2018-07-04] MEDS: SODIUM CHLORIDE 0.9% 500 ML 1000 ML IV (03:43)
[2018-07-04] MEDS: SODIUM CHLORIDE 0.9% 1,000 ML 1000 ML IV ×2 (04:09→17:48)
[2018-07-04] MEDS: SODIUM CHLORIDE 0.9% 1,000 ML 150 ML IV ×2 (05:39→13:01)
--- NOTE | 2018-07-04 06:45 | PC.NURSE ---
Pt is AxOx3, febrile at 101.8F, then down to 100.4, tylenol given, now at 98.5F. Pt has been hypotensive as well; at first 103/54, then 85/50, now at 115/65 after 1.5L bolus total and IVF running now at 150mL/hr. Provider aware. Oxygen on Room air is at 92%, Provider Justyn requesting O2 saturation be >94%; 1L NC applied. Urostomy has dark, cloudy, yellow, malodorus urine. 450mL total. Pt states he usually voids about 2,000mL a day. 2 view chest x-ray performed this AM. Able to stand and pivot with 1 person assist. Tele is NSR, 1st AVB, BBB. No complaints of pain. Abdomen with mild distention, non-tender, pt states this is normal for him
[2018-07-04 07:30] LABS: Hematocrit 29.9 % (41-53); Mean Corpuscular HGB Conc 33.3 % (30-36); Mean Corpuscular Hemoglobin 29.4 PG (26-34); Mean Corpuscular Volume 88.2 fL (80-100); Platelet Count 164 X10^3/uL (150-400); Red Blood Cell Count 3.39 X10^6/uL (4.5-5.9); Red Cell Distribution Width 13.3 % (11.6-14.8); White Blood Cell Count 16.7 X10^3/uL (4.5-11.0)
[2018-07-04 07:39] LABS: Blood Urea Nitrogen 17 mg/dL (9-20); Carbon Dioxide 24 mmol/L (22-32); Chloride 97 mmol/L (98-107); Estimated Glomerular Filt Rate > 60.0 mL/min (>60); Glucose 96 mg/dL (80-110); HEMOLYSIS < 15 (0-50); Magnesium 1.6 mg/dL (1.6-2.3); Potassium 3.9 mmol/L (3.4-5.1); Sodium 128 mmol/L (137-145)
[2018-07-04 07:58] LABS: Neutrophils Absolute Manual 15197 /uL (3000-5900); Total Cells Counted 100
[2018-07-04 08:00] LABS: Dohle Bodies 1+
[2018-07-04 08:01] LABS: Calcium 7.4 mg/dL (8.4-10.2)
[2018-07-04 08:37] LABS: Procalcitonin 14.74 ng/mL (<0.5)
[2018-07-04 08:41] LABS: Acinetobacter baumannii Not Detected (Not Detect); Candida albicans Not Detected (Not Detect); Candida glabrata Not Detected (Not Detect); Candida krusei Not Detected (Not Detect); Candida parapsilosis Not Detected (Not Detect); Candida tropicalis Not Detected (Not Detect); Enterobacter cloacae complex Not Detected (Not Detect); Enterobacteriaceae species Detected (Not Detect); Enterococcus species Not Detected (Not Detect); Haemophilus influenzae Not Detected (Not Detect); KPC (carbapenem-resist gene) Not Detected (Not Detect); Listeria monocytogenes Not Detected (Not Detect); Neisseria meningitidis Not Detected (Not Detect); Proteus species Not Detected (Not Detect); Pseudomonas aeruginosa Not Detected (Not Detect); Serratia marcescens Not Detected (Not Detect); Staphylococcus species Not Detected (Not Detect); Streptococcus agalactiae (Gr B Not Detected (Not Detect); Streptococcus pneumonia Not Detected (Not Detect); Streptococcus pyogenes (Gr A) Not Detected (Not Detect); Streptococcus species Not Detected (Not Detect)
[2018-07-04 08:42] LABS: E. coli Detected (Not Detect)
[2018-07-04] MEDS: ATORVASTATIN 20 MG TABLET 40 MG PO (08:44)
[2018-07-04] MEDS: APIXABAN 5 MG TABLET PO ×2 (08:44→21:37)
[2018-07-04] MEDS: DOCUSATE 100 MG CAPSULE PO ×2 (08:44→21:37)
[2018-07-04] MEDS: ASPIRIN EC 81 MG TABLET PO (08:44)
[2018-07-04] MEDS: SENNOSIDES 8.6 MG TABLET PO ×2 (08:44→21:38)
[2018-07-04] MEDS: LEVOTHYROXINE 125 MCG TABLET PO (08:44)
[2018-07-04] MEDS: PREGABALIN 75 MG CAPSULE 150 MG PO ×3 (08:44→21:37)
[2018-07-04] MEDS: MEROPENEM 2 GM in SODIUM CHLORIDE 0.9% 100 ML 200 ML IV ×2 (09:48→21:40)
--- NOTE | 2018-07-04 17:14 | CM.DANOTE ---
Discharge Planning/Care Management DCP: assessment: initiated: case received, EMR reviewe and discussed in Team Rounds. Pt is an 82 year old male who admitted last night to care of hospitalist team. PCP: listed as Arpita Fall Payer: Medicare and [employer]. Dr. Suh notes pt with a chronic urostomy in place, that full dx and POC were pending but that pt was going to need several days of hospital level care before consideration of d/c. She does anticipate at this time that he will transition by time of d/c from IV antibiotics to oral medication. P: DCP team to meet with pt and continue the assessment process; assisting with d/c issues and options as these become clearer. Advanced directive, confirm from FAMILY Start: 07/03/18 23:37 Freq: Q24H Status: Complete Protocol: Document 07/04/18 09:00 CM (Rec: 07/04/18 09:14 CM [id number]) Advance Directive, confirm on record Time 09:14 Person contacted Pt - states he does not have a advanced directive Copy received No Advanced directive available on record No CM Discharge Assessment Start: 07/04/18 17:13 Freq: Status: Active Protocol: Document 07/04/18 17:13 ITV (Rec: 07/04/18 17:14 ITV [id number]) Discharge Planning Assessment Advance Directives? No Advance Directives on File No History Provided By Medical Record Review Status In Process Next Review Type Continued Stay Review
[2018-07-04] MEDS: SODIUM CHLORIDE 0.9% 1,000 ML 100 ML IV (18:55)
[2018-07-05] VITALS (21 sets, daily range): BP systolic 115–144; BP diastolic 63–77; PULSE 69–113; RESP 16–24; TEMP 36.7–39.2; O2SAT 84–98
[2018-07-05] MEDS: SODIUM CHLORIDE 0.9% 1,000 ML 100 ML IV ×2 (05:37→16:37)
[2018-07-05] MEDS: ACETAMINOPHEN 325 MG TABLET 650 MG PO ×3 (05:39→16:32)
--- NOTE | 2018-07-05 06:41 | P.PN_ITS ---
Subjective Date Patient Seen: 07/05/18 Interval history: Francisco J Albarran is an 82-year-old male with a past medical history significant for bladder cancer status post urostomy, prostate cancer, thyroid cancer status post thyroidectomy with secondary hypothyroidism, coronary artery disease status post ID on chronic anticoagulation with Eliquis and hypertension who presented for fever and chills and was found to have E coli bacteremia secondary to pyelonephritis. The patient is resting in bed comfortably. He complains of rigors and chills. He has chronic rhinitis. He also reports a brief discomfort/abdominal cramp by his urostomy that is now resolved. He denies headache, cough, shortness of breath, chest pain, nausea, vomiting, fever, chills, dysuria, diarrhea or constipation. He has high output through his urostomy and he is eliminating without difficulty. He is up ambulating minimally without assistance. Exam Vital Signs (past 8 hours): - 07/05/18 00:00 07/05/18 01:00 07/05/18 04:00 Temperature 98.9 F 100.7 F H Pulse Rate 73 74 Respiratory Rate 16 20 Blood Pressure 134/71 121/63 Pulse Oximetry 92 92 93 07/05/18 05:00 07/05/18 05:39 Temperature 100.7 F H Pulse Rate Respiratory Rate Blood Pressure Pulse Oximetry 93 Fraction of Inspired Oxygen 21 Oxygen Delivery Method Room Air Oxygen Flow Rate 0 Narrative Exam Narrative: General: Elderly gentleman lying in bed and in no acute distress, exhibiting rigors, well-developed, well-nourished, appropriately interactive. HEENT: Normocephalic, atraumatic. External ears without defect. Pupils equal, round, and reactive to light. Anicteric sclerae, moist conjunctivae, and no lid lag. Neck: Supple with full range of motion. No lymphadenopathy or thyromegaly. Cardiovascular: Regular rhythm, tachycardic, without murmurs, rubs, or gallops appreciated Pulmonary: Clear to auscultation bilaterally without crackles, wheezes, or rhonc hi. Normal respiratory effort with no use of accessory muscles. Abdomen: Soft, bowel sounds present, nontender, nondistended. No hepatosplenomegaly or masses appreciated. Stoma appears healthy with slight mucus and dark urine. Extremities: No clubbing, cyanosis, or edema. Skin: Normal temperature, turgor, and texture; no rash, ulcers, or subcutaneous nodules appreciated. Neurological: Cranial nerves grossly intact. Psychiatric: Normal mood and affect. Alert and oriented to person, place, and time. Objective Labs Result Diagrams: 07/05/18 06:35 07/05/18 06:35 Labs: Laboratory Results - last 24 hr 07/03/18 07/04/18 07/04/18 17:40 07:05 07:05 WBC 16.7 H RBC 3.39 L Hgb 10.0 L Hct 29.9 L MCV 88.2 MCH 29.4 MCHC 33.3 RDW 13.3 Plt Count 164 Total Counted 100 Seg Neutrophils % 72.0 H Band Neutrophils % 19.0 H Lymphocytes % (Manual) 4.0 L Monocytes % (Manual) 3.0 Eosinophils % (Manual) 1.0 L Basophils % (Manual) 1.0 Neutrophils # (Manual) 52089 H Dohle Bodies 1+ H RBC Morphology See below Sodium 128 L Potassium 3.9 Chloride 97 L Carbon Dioxide 24 BUN 17 Creatinine 1.00 Estimated GFR > 60.0 BUN/Creatinine Ratio 17.0 Glucose 96 Calcium 7.4 L Magnesium 1.6 Procalcitonin A. baumannii (PCR) Not detected Rosaura albicans (PCR) Not detected C. glabrata (PCR) Not detected C. krusei (PCR) Not detected C. parapsilosis (PCR) Not detected C. tropicalis (PCR) Not detected Enterobacteriac sp PCR Detected H E. cloacae complex PCR Not detected Enterococcus sp PCR Not detected E. coli (PCR) Detected H H. influenzae (PCR) Not detected Klebsiella oxytoca PCR Not detected Klebsiella pneumoniae Not detected List. monocytogenes PCR Not detected N. meningitidis (PCR) Not detected Proteus species (PCR) Not detected Serratia marcescens PCR Not detected Staphylococcus sp PCR Not detected Staph aureus (PCR) Not detected mecA-Methicil Res Gene Not Reportable Streptococcus sp PCR Not detected Group A Strep (PCR) Not detected Strep agalactiae (PCR) Not detected Strep pneumoniae (PCR) Not detected P. aeruginosa (PCR) Not detected Naeem/B-Vanco Res Genes Not Reportable KPC-Carbap Res Gene PCR Not detected 07/04/18 07:05 WBC RBC Hgb Hct MCV MCH MCHC RDW Plt Count Total Counted Seg Neutrophils % Band Neutrophils % Lymphocytes % (Manual) Monocytes % (Manual) Eosinophils % (Manual) Basophils % (Manual) Neutrophils # (Manual) Dohle Bodies RBC Morphology Sodium Potassium Chloride Carbon Dioxide BUN Creatinine Estimated GFR BUN/Creatinine Ratio Glucose Calcium Magnesium Procalcitonin 14.74 H A. baumannii (PCR) Rosaura albicans (PCR) C. glabrata (PCR) C. krusei (PCR) C. parapsilosis (PCR) C. tropicalis (PCR) Enterobacteriac sp PCR E. cloacae complex PCR Enterococcus sp PCR E. coli (PCR) H. influenzae (PCR) Klebsiella oxytoca PCR Klebsiella pneumoniae List. monocytogenes PCR N. meningitidis (PCR) Proteus species (PCR) Serratia marcescens PCR Staphylococcus sp PCR Staph aureus (PCR) mecA-Methicil Res Gene Streptococcus sp PCR Group A Strep (PCR) Strep agalactiae (PCR) Strep pneumoniae (PCR) P. aeruginosa (PCR) Naeem/B-Vanco Res Genes KPC-Carbap Res Gene PCR Assessment & Plan Assessment & Plan narrative: Francisco J Albarran is an 82-year-old male with a past medical history significant for bladder cancer status post urostomy, prostate cancer, thyroid cancer status post thyroidectomy with secondary hypothyroidism, coronary artery disease status post ID on chronic anticoagulation with Eliquis and hypertension who presented for fever and chills and was found to have E coli bacteremia secondary to pyelonephritis. 1. Acute sepsis, present on admission. Resolved. -Secondary to E coli bacteremia from pyelonephritis. Continue to treat as below. -Sepsis criteria met including: temp 101.1, HR 94, WBC 13.7, lactate 2.5, with organ dysfunction of metabolic encephalopathy and hypotension (fluid responsive). -Early goal-directed therapy med including: IV fluid resuscitation and broad- spectrum antibiotics. -Trended lactic acid until below 2.0. 2. Acute E. coli bacteremia and pyelonephritis, present on admission. Active. -Patient has surgically absent bladder and presented with fevers and chills found to be septic as above. -Blood cultures positive for E coli sensitive to ceftriaxone for which meropenem was stopped and ceftriaxone 2 g daily was started. -Chest x-ray did not demonstrate any acute cardiopulmonary findings. -Continue maintenance IV fluid at 100 mL/hr and will give as needed boluses for hypotension. -Supportive care, analgesics and antiemetics. -Continue supplemental oxygen to keep SpO2 > 92% -Continue to monitor closely on telemetry. -Continue strict I&Os as patient has high volume output. 3. Acute metabolic encephalopathy, present on admission. Resolved. -Secondary to E coli bacteremia and pyelonephritis. 4. Acute hypotension, secondary to hypovolemia and sepsis, present on admission. Active. -Patient is asymptomatic. Na 129 Cl 91. Patient reports high volume output of 0810-3842 mL via urostomy daily. -Continue to monitor blood pressure closely. Continue maintenance IV fluid at 1 00 mL/hr and will give as needed boluses for hypotension. 5. Essential hypertension, chronic, present on admission. Stable. -Blood pressure has been low normal to mildly hypotensive responsive to fluids. -Held home anti-hypertensives initially. Restarted metoprolol succinate 50 mg daily today. Will slowly restart other antihypertensive in the next 1-2 days as appropriate. 6. Acute generalized weakness, present on admission. Active. -Multifactorial secondary to underlying infection, hypermetabolic state and hyponatremia. Treat underlying pathology. -Ordered physical and occupational therapy evaluation and treatment, re: generalized weakness, at high risk for de-conditioning related to hospital admission. 7. Chronic anticoagulation with Eliquis, present on admission. Stable. -It is not entirely clear why patient is anticoagulated. Request records from Cardiology. -Continue Eliquis 5 mg twice daily. 8. CAD status post ID, chronic, present on admission. Stable. -Patient has no chest pain or active disease. -Continue aspirin 81 mg daily, atorvastatin 40 mg daily at bedtime, and Eliquis 5 mg twice daily. 9. Secondary hypothyroidism, chronic, present on admission. Stable. -Patient previously had thyroid cancer status post thyroidectomy. -Ordered TSH, pending. -Continue home levothyroxine 125 mcg daily. 10. Normocytic normochromic anemia, chronic, present on admission. Stable. -Likely anemia of chronic disease. -Initial hemoglobin 12.5 which is higher than his baseline likely due to hemoconcentration from dehydration. -No overt signs of bleeding. -Continue to monitor hemoglobin and hematocrit closely. 11. Peripheral neuropathy, chronic, present on admission. Stable. -Continue home Lyrica 150 mg 3 times daily. Disposition: Likely to discharge in 1-2 days depending improvement with treatment for sepsis, bacteremia and pyelonephritis. Quality VTE Deep Vein Thrombosis/Pulmonary Embolism Present on Admission: No
[2018-07-05 07:17] LABS: Add Manual Diff / Slide Review NO; Basophils Absolute Auto 100 /uL (0-100); Basophils Percent Auto 0.7 % (0-2); Eosinophils Absolute Auto 300 /uL (0-450); Eosinophils Percent Auto 2.9 % (2-4); Hematocrit 29.6 % (41-53); Hemoglobin 9.9 g/dL (13.5-17.5); Lymphocytes Absolute Auto 600 /uL (1100-4500); Lymphocytes Percent Auto 5.3 % (25-40); Mean Corpuscular HGB Conc 33.6 % (30-36); Mean Corpuscular Hemoglobin 29.6 PG (26-34); Mean Corpuscular Volume 88.1 fL (80-100); Monocytes Absolute Auto 800 /uL (0-900); Neutrophils Absolute Auto 8800 /uL (1500-7000); Neutrophils Percent Auto 83.1 % (50-75); Platelet Count 163 X10^3/uL (150-400); Red Blood Cell Count 3.36 X10^6/uL (4.5-5.9); Red Cell Distribution Width 13.5 % (11.6-14.8); White Blood Cell Count 10.6 X10^3/uL (4.5-11.0)
[2018-07-05 08:04] LABS: Procalcitonin 9.08 ng/mL (<0.5)
[2018-07-05 08:09] LABS: Alanine Aminotransferase 26 IU/L (21-72); Albumin 2.4 g/dL (3.5-5.0); Alkaline Phosphatase 45 U/L (38-126); Aspartate Aminotransferase 28 IU/L (17-59); BUN Creatinine Ratio 16.7 (6-22); Bilirubin Total 0.2 mg/dL (0.2-1.3); Blood Urea Nitrogen 15 mg/dL (9-20); Calcium 7.7 mg/dL (8.4-10.2); Carbon Dioxide 22 mmol/L (22-32); Chloride 104 mmol/L (98-107); Estimated Glomerular Filt Rate > 60.0 mL/min (>60); Globulin 2.3 g/dL (1.7-4.1); Glucose 88 mg/dL (80-110); HEMOLYSIS < 15 (0-50); Magnesium 1.7 mg/dL (1.6-2.3); Potassium 4.1 mmol/L (3.4-5.1); Sodium 132 mmol/L (137-145); Total Protein 4.7 g/dL (6.3-8.2)
[2018-07-05] MEDS: APIXABAN 5 MG TABLET PO ×2 (08:28→22:28)
[2018-07-05] MEDS: CEFTRIAXONE 2 GM/50 ML FROZ.PIGGY IV (08:28)
[2018-07-05] MEDS: LEVOTHYROXINE 125 MCG TABLET PO (08:31)
[2018-07-05] MEDS: DOCUSATE 100 MG CAPSULE PO ×2 (08:31→22:28)
[2018-07-05] MEDS: ATORVASTATIN 20 MG TABLET 40 MG PO (08:31)
[2018-07-05] MEDS: ASPIRIN EC 81 MG TABLET PO (08:31)
[2018-07-05] MEDS: PREGABALIN 75 MG CAPSULE 150 MG PO ×2 (08:32→22:28)
[2018-07-05] MEDS: SENNOSIDES 8.6 MG TABLET PO ×2 (08:32→22:28)
[2018-07-05] MEDS: METOPROLOL ER 25 MG TABLET PO (13:05)
[2018-07-05] MEDS: FLUTICASONE 120 SPRAY/16 GM SPRAY.SUSP NASAL (13:06)
[2018-07-05 14:23] LABS: Free T4, Direct Thyroxine 1.08 ng/dL (0.78-2.19)
[2018-07-06] VITALS (16 sets, daily range): BP systolic 115–155; BP diastolic 59–76; PULSE 56–79; RESP 16–24; TEMP 36.3–37.1; O2SAT 94–99
[2018-07-06] MEDS: SODIUM CHLORIDE 0.9% 1,000 ML 100 ML IV ×2 (01:57→13:38)
--- NOTE | 2018-07-06 03:59 | PC.NURSE ---
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 Will continue to monitor.
--- NOTE | 2018-07-06 07:35 | P.PN_ITS ---
Subjective Date Patient Seen: 07/06/18 Interval history: Francisco J Albarran is an 82-year-old male with a past medical history significant for bladder cancer status post urostomy, prostate cancer, thyroid cancer status post thyroidectomy with secondary hypothyroidism, coronary artery disease status post MA on chronic anticoagulation with Eliquis and hypertension who presented for fever and chills and was found to have E. coli bacteremia secondary to pyelonephritis. The patient is resting in bed comfortably. He reports that his fever and rigors have resolved. He continues to have chills and reports he ?runs cold.? He denies headache, cough, shortness of breath, chest pain, nausea, vomiting, fever, dysuria, diarrhea or constipation. He continues to have high output through his urostomy and he is eliminating without difficulty. He is up ambulating minimally without assistance. Exam Vital Signs (past 8 hours): - 07/06/18 00:10 07/06/18 04:52 07/06/18 05:00 Temperature 98.1 F 98.4 F Pulse Rate 56 L 57 L Respiratory Rate 16 20 Blood Pressure 115/59 L 130/69 Pulse Oximetry 98 99 99 Fraction of Inspired Oxygen 21 Oxygen Delivery Method Nasal Cannula Oxygen Flow Rate 2 Narrative Exam Narrative: General: Elderly gentleman lying in bed and in no acute distress, exhibiting rigors, well-developed, well-nourished, appropriately interactive. HEENT: Normocephalic, atraumatic. External ears without defect. Pupils equal, round, and reactive to light. Anicteric sclerae, moist conjunctivae, and no lid lag. Neck: Supple with full range of motion. No lymphadenopathy or thyromegaly. Cardiovascular: Regular rhythm and rate without murmurs, rubs, or gallops appreciated Pulmonary: Clear to auscultation bilaterally without crackles, wheezes, or rhonchi. Normal respiratory effort with no use of accessory muscles. Abdomen: Soft, bowel sounds present, nontender, nondistended. No hepatosplenomegaly or masses appreciated. Stoma appears healthy with slight mucus and dark urine. Extremities: No clubbing, cyanosis, or edema. Skin: Normal temperature, turgor, and texture; no rash, ulcers, or subcutaneous nodules appreciated. Neurological: Cranial nerves grossly intact. Psychiatric: Normal mood and affect. Alert and oriented to person, place, and time. Objective Labs Result Diagrams: 07/06/18 06:50 07/06/18 06:50 Labs: Laboratory Results - last 24 hr 07/05/18 07/05/18 07/05/18 06:35 06:35 06:35 Sodium 132 L Potassium 4.1 Chloride 104 Carbon Dioxide 22 BUN 15 Creatinine 0.90 Estimated GFR > 60.0 BUN/Creatinine Ratio 16.7 Glucose 88 Calcium 7.7 L Magnesium 1.7 Total Bilirubin 0.2 AST 28 ALT 26 Alkaline Phosphatase 45 Total Protein 4.7 L Albumin 2.4 L Globulin 2.3 Albumin/Globulin Ratio 1.0 Procalcitonin 9.08 H TSH 10.50 H Free T4 1.08 Assessment & Plan Assessment & Plan narrative: Francisco J Albarran is an 82-year-old male with a past medical history significant for bladder cancer status post urostomy, prostate cancer, thyroid cancer status post thyroidectomy with secondary hypothyroidism, coronary artery disease status post MA on chronic anticoagulation with Eliquis and hypertension who presented for fever and chills and was found to have E coli bacteremia secondary to pyelonephritis. 1. Acute sepsis, present on admission. Resolved. -Secondary to E coli bacteremia from pyelonephritis. Continue to treat as below. -Sepsis criteria met including: temp 101.1, HR 94, WBC 13.7, lactate 2.5, with organ dysfunction of metabolic encephalopathy and hypotension (fluid responsive). -Early goal-directed therapy med including: IV fluid resuscitation and broad- spectrum antibiotics. -Trended lactic acid until below 2.0. 2. Acute E. coli bacteremia and pyelonephritis, present on admission. Active. -Patient has surgically absent bladder and presented with fevers and chills found to be septic as above. -Procalcitonin elevated and peaked at 14.74. Trending down, today 5.69. Trend daily. -Blood cultures positive for E. coli sensitive to ceftriaxone for which meropenem was stopped and ceftriaxone 2 g daily was started. -Chest x-ray did not demonstrate any acute cardiopulmonary findings. -Continue maintenance IV fluid at 100 mL/hr and will give as needed boluses for hypotension. -Supportive care, analgesics and antiemetics. -Continue supplemental oxygen to keep SpO2 > 92% -Continue to monitor closely on telemetry. -Continue strict I&Os as patient has high volume output. 3. Acute metabolic encephalopathy, present on admission. Resolved. -Secondary to E. coli bacteremia and pyelonephritis. 4. Acute hypotension, secondary to hypovolemia and sepsis, present on admission. Resolved. -Patient is asymptomatic. Na 129, Cl 91. Patient reports high volume output of 9695-0863 mL via urostomy daily. -Continue to monitor blood pressure closely. Continue maintenance IV fluid at 100 mL/hr and will give as needed boluses for hypotension. 5. Essential hypertension, chronic, present on admission. Stable. -Blood pressure has been low normal to mildly hypotensive responsive to fluids. -Held home anti-hypertensives initially. Restarted metoprolol succinate 50 mg daily today. Will slowly restart other antihypertensive in the next 1-2 days as appropriate. 6. Acute generalized weakness, present on admission. Active. -Multifactorial secondary to underlying infection, hypermetabolic state and hyponatremia. Treat underlying pathology. -Ordered physical and occupational therapy evaluation and treatment, re: generalized weakness, at high risk for de-conditioning related to hospital admission. 7. Chronic anticoagulation with Eliquis, present on admission. Stable. -It is not entirely clear why patient is anticoagulated. Request records from Cardiology. -Continue Eliquis 5 mg twice daily. 8. CAD status post MA, chronic, present on admission. Stable. -Patient has no chest pain or active disease. -Continue aspirin 81 mg daily, atorvastatin 40 mg daily at bedtime, and Eliquis 5 mg twice daily. 9. Secondary hypothyroidism, chronic, present on admission. Stable. -Patient previously had thyroid cancer status post thyroidectomy. -TSH 10.50 and free T4 1.08. TSH suppression, for high-risk and intermediate- risk patients, the guidelines recommend initial TSH below 0.1 mU/L, and, for low-risk patients TSH at or slightly below the lower limit of normal (0.1?0.5 mU/L). -Plan to increase levothyroxine to 200 mcg daily. 10. Normocytic normochromic anemia, chronic, present on admission. Stable. -Likely anemia of chronic disease. -Initial hemoglobin 12.5 which is higher than his baseline likely due to hemoconcentration from dehydration. -No overt signs of bleeding. -Continue to monitor hemoglobin and hematocrit closely. 11. Peripheral neuropathy, chronic, present on admission. Stable. -Continue home Lyrica 150 mg 3 times daily. Disposition: Likely to discharge in 1-2 days depending improvement with treatment for sepsis, bacteremia and pyelonephritis. Quality VTE Deep Vein Thrombosis/Pulmonary Embolism Present on Admission: No
[2018-07-06 07:36] LABS: Add Manual Diff / Slide Review NO; Basophils Absolute Auto 100 /uL (0-100); Basophils Percent Auto 0.7 % (0-2); Eosinophils Absolute Auto 300 /uL (0-450); Eosinophils Percent Auto 3.7 % (2-4); Hematocrit 31.7 % (41-53); Hemoglobin 10.8 g/dL (13.5-17.5); Lymphocytes Absolute Auto 600 /uL (1100-4500); Lymphocytes Percent Auto 7.6 % (25-40); Mean Corpuscular HGB Conc 34.1 % (30-36); Mean Corpuscular Volume 87.8 fL (80-100); Monocytes Absolute Auto 600 /uL (0-900); Monocytes Percent Auto 7.5 % (3-14); Neutrophils Absolute Auto 6200 /uL (1500-7000); Neutrophils Percent Auto 80.5 % (50-75); Platelet Count 148 X10^3/uL (150-400); Red Blood Cell Count 3.61 X10^6/uL (4.5-5.9); Red Cell Distribution Width 13.7 % (11.6-14.8); White Blood Cell Count 7.8 X10^3/uL (4.5-11.0)
[2018-07-06] MEDS: CEFTRIAXONE 2 GM/50 ML FROZ.PIGGY IV (07:53)
[2018-07-06] MEDS: LEVOTHYROXINE 125 MCG TABLET PO (07:58)
[2018-07-06] MEDS: DOCUSATE 100 MG CAPSULE PO ×2 (07:58→20:42)
[2018-07-06] MEDS: PREGABALIN 75 MG CAPSULE 150 MG PO ×3 (07:58→20:42)
[2018-07-06] MEDS: ASPIRIN EC 81 MG TABLET PO (07:58)
[2018-07-06] MEDS: SENNOSIDES 8.6 MG TABLET PO ×2 (07:58→20:43)
[2018-07-06] MEDS: ATORVASTATIN 20 MG TABLET 40 MG PO (07:59)
[2018-07-06] MEDS: METOPROLOL ER 25 MG TABLET PO (07:59)
[2018-07-06] MEDS: APIXABAN 5 MG TABLET PO ×2 (07:59→20:42)
[2018-07-06 08:27] LABS: Procalcitonin 5.69 ng/mL (<0.5)
[2018-07-06 09:20] LABS: BUN Creatinine Ratio 18.8 (6-22); Blood Urea Nitrogen 15 mg/dL (9-20); Carbon Dioxide 26 mmol/L (22-32); Chloride 104 mmol/L (98-107); Estimated Glomerular Filt Rate > 60.0 mL/min (>60); Glucose 90 mg/dL (80-110); HEMOLYSIS < 15 (0-50); Magnesium 1.8 mg/dL (1.6-2.3); Potassium 4.1 mmol/L (3.4-5.1); Sodium 134 mmol/L (137-145)
[2018-07-06] MEDS: LOSARTAN 50 MG TABLET PO (10:22)
[2018-07-06] MEDS: AMLODIPINE 5 MG TABLET 10 MG PO (10:25)
--- NOTE | 2018-07-06 12:38 | CM.DPC ---
DCP Cont: Discussed patient at team rounds. Patient should be able to go home when he is medically stable. Put in physical and occupational therapy orders for patient, per Dr. Suh. Will see how he does with therapy. P: DCP to follow closely and consult with physical therapy to note if any additional resources may be needed at discharge. Latricia Hernandez RN/[employer]
--- NOTE | 2018-07-06 14:21 | OT.IP.EVAL ---
Current Diagnoses Sepsis, unspecified organism (07/03/18) Past Medical History (Last Reviewed 07/04/18 @ 02:32 by SERGIO Castillo) Bladder cancer (Acute) Coronary artery disease (Acute) Hypertension (Acute) Hyponatremia (Acute) Hypothyroid (Acute) Kidney stones (Acute) Prostate cancer (Acute) Thyroid cancer (Acute) Surgical History (Last Reviewed 07/04/18 @ 02:32 by SERGIO Castillo) H/O colectomy (Acute) H/O thyroidectomy (Acute) History of appendectomy (Acute) History of urostomy (Acute) Occupational Therapy Inpatient Evaluation/Re-Eval M1 PT/OT-IP Prior Functional Status Start: 07/06/18 15:28 Freq: NEEDED Status: Active Protocol: Document 07/06/18 14:21 LEVY (Rec: 07/06/18 17:15 LEVY [id number]) Medical Review Prior Functional Status Medical History Reviewed Yes Diet/Fluid Consistency Regular Communication WNL Mobility and Gait Pt has chronic vertigo and balance issues but denies any recent falls. He was going to out pt P.T. to work on balance and strengthening. Pt states he ambulated without a device in house and used cane in community. Activities of Daily Living and IADL's Pt states he was independent with all self care at home. He states he assists with some powder blender and pourer, drives and manages his own meds and finances. not here to confirm home situation. Social History Household Members spouse Living Arrangements Apartment/Condo Number of Floors (Floors) One Floor Number of Stairs To Enter/Railing? 4 ATIF with B rails Home Environment Standard Height Toilet Walk in Shower Home Equipment Shower Seat with Backrest Hand Held Shower Long Handled Sponge Long Handled Shoe [employer] Sock Aid Employment Status Retired M2 OT-IP Current Condition Start: 07/06/18 16:57 Freq: Status: Active Protocol: Document 07/06/18 14:21 LEVY (Rec: 07/06/18 17:15 LEVY [id number]) Occupational Therapy Current Condition Current Condition Evaluation Date 07/06/18 Treatment Diagnosis decreased activity tolerance with DX of pyelonephritis w/ Ecoli bacteremia Diagnosis Onset Date 07/06/18 Post Operative Precautions Other Precautions fall risk M3 OT- IP Subjective and Pain Start: 07/06/18 16:57 Freq: Status: Active Protocol: Document 07/06/18 14:21 PJM (Rec: 07/06/18 17:15 PJ [id number]) OT- Subjective Occupational Therapy Visit Type Type Initial Evaluation Visit Start Time 14:06 Visit Stop Time 14:21 Total Visit Minutes 15 Notes Pt's sister here this session. Occupational Therapy Visit Comments Patient Comments I don't want to get up right now. I was up in that chair for 2 hours earlier and had a shower today. Patient/Caregiver Goals to go home OT Pain Assessment Pain When Pain Assessed After Treatment Pain Present Pain Present Pain Reported Location Head Intensity 2 Description Aching M4 OT- IP ADL's Start: 07/06/18 16:57 Freq: Status: Active Protocol: Document 07/06/18 14:21 PJM (Rec: 07/06/18 17:15 PJ [email or web address]) OT [id number] General Evaluation Self-Feeding Ability Independent OT ADL-Grooming General Evaluation Grooming Ability Standby Assistance Areas Needing Assistance Combing/Brushing Hair Face Washing Comments OT Grooming Comments after set up in bed OT ADL-Oral Care General Eval Oral Care Ability Standby Assistance Areas of Assistance Brushing Teeth Comments Oral Care Comments after set up in bed OT ADL-Dressing Comments OT Dressing Comments to be assessed, pt declined today due to fatigue OT ADL-Toileting Comments OT Toileting Comments to be assessed, pt declined today due to fatigue OT ADL-Bathing Bathing Type Bathing Type Shower General Evaluation Bathing Ability Minimal Assistance Areas Needing Assistance Wash/Dry Back Devices Bathing Equipment Long Handled Sponge or Pressroom Supervisor Held Shower Sprayer Shower Chair without Arms Comments OT Bathing Comments Pt states he did 75% of shower , TOOL CLERK did 25 % this AM. Pt has appropriate bathroom safety equipment at home, except recommend grab bars. M5 OT- IP IADL's Start: 07/06/18 16:57 Freq: Status: Active Protocol: Document 07/06/18 14:21 PJM (Rec: 07/06/18 17:15 PJ [id number]) OT-Instrumental Activities of Daily Living Deficits IADL Deficits Identified Deficits Home Safety Awareness Awareness of Need for Assistance at Home Good Awareness Medication Management Medication Management No Deficits Identified Money Management Money Management No Deficits Identified Meal Preparation Meal Preparation Caregiver Provides Assist Meal Preparation Comments can assist PRN. Control Systems Engineer Control Systems Engineer No Deficits Identified Control Systems Engineer Comments can assist PRN. Driving Driving Caregiver Provides Assist Driving Comments can assist PRN. M6 OT- IP Functional Cognition Start: 07/06/18 16:57 Freq: Status: Active Protocol: Document 07/06/18 14:21 PJM (Rec: 07/06/18 17:15 PJM NR) Cognitive Factors Limiting Selfcare Function Cognitive Ability Level of Alertness Alert Patient Orientation Name Age Birthday Month Date Year Day of Week Place Situation Attention Span Ability Capable of Focused Attention Capable of Sustained Attention Ability to Follow Commands Able to Follow One Step Commands Memory Description No Deficits Noted Safety Awareness No Deficits Noted Problem Solving Ability No deficits Noted Cognitive Comments Cognitive Assessment Comments Cognition appears to be at baseline. OT- Vision and Hearing OT- Hearing Assessment OT- Hearing Assessment WFL OT- Vision Assessment Visual Acuity WFL Glasses All The Time Vision Assessment Comments pt denies any recent vision changes M7 OT- IP Mobility and Balance Start: 07/06/18 16:57 Freq: Status: Active Protocol: Document 07/06/18 14:21 PJM (Rec: 07/06/18 17:15 PJM NR) OT-Transfer Assessment Comments Mobility Comments pt declined OOB this session due to fatigue OT- Gait Assessment Comments Gait Ability Comments pt declined OOB this session due to fatigue; pt walked into bathroom today with TOOL CLERK OT- Balance Assessment Comments Other Balance Tests/Deviations/Treatment pt declined OOB this session : due to fatigue M8 OT- IP Objective Assessments Start: 07/06/18 16:57 Freq: Status: Active Protocol: Document 07/06/18 14:21 PJM (Rec: 07/06/18 17:15 PJM NR) OT Strength Upper Extremity Strength Assessment Within Functional Limits Hand Copier And Printer Field Technician Strength Hand Dominance Right OT- Coordination Assessment Comments Coordination Comments BUE WFL OT-Muscle Tone Assessment Muscle Tone WNL Yes OT Sensation Assessment Comments Summary Comments Pt denies deficits; note pt wears cotton gloves on hands most of the time due to Raynaud's Edema Edema Absent M9 OT- IP Assessment and Plan Start: 07/06/18 16:57 Freq: Status: Active Protocol: Document 07/06/18 14:21 PJM (Rec: 07/06/18 17:15 PJM [id number]) OT Summary Assessment and Plan Potential Rehabilitation Potential Good Analytic Complexity at Evaluation Low Summary OT Impairments Strength Balance Functional Mobility Grooming Dressing Toileting Bathing Toilet Transfers Shower Transfers Assessment Summary Low complexity OT assessment completed as limited by pt declining out of bed this session. Pt agreed to get out of bed for further ADL assessment tomorrow AM. Pt's primary performance deficit is decreased activity tolerance admitted with dx of pyelonephritis with Ecoli bacteremia. This results in decreased independence in all functional mobility/transfers, standing grooming, dressing, bathing and toileting. Plan 1-2 additional OT visits to increase endurance, independence, safety in basic self care, functional mobility and bathroom transfers. Anticipate pt will be able to d/c home with assist from if he continues to improve here. Goals Grooming Goal Independent Dressing Goal Independent Toileting Goal Independent Bathing Goal Standby Assistance Toilet Transfer Goal Independent Shower Transfer Goal Standby Assistance Patient/Caregiver Education Goal Demonstrate Post-Op Precautions Demonstrate Energy Conservation and Pacing Caregiver Independent Assisting Patient OT-Other Goals Grooming to be done standing at sink with no loss of balance and good safety awareness. Days to Meet Goals 3 Frequency of Treatment Frequency Of Treatment Once a Day Treatment Plan OT Treatment Plan ADL Training Functional Mobility Patient/Family Education Discharge Planning Discharge Recommendations OT Discharge Recommendations Home with Assistance Home Equipment Needs recommend grab bars in shower stall
--- NOTE | 2018-07-06 15:43 | PT.IPTN ---
Current Diagnoses Sepsis, unspecified organism (07/03/18) Physical Therapy Treatment Note Notes Attempted PT eval but pt unavailable at this time, will attempt again later today or tomorrow.
[2018-07-06] MEDS: ACETAMINOPHEN 325 MG TABLET 650 MG PO (15:59)
--- NOTE | 2018-07-06 17:32 | PC.NURSE ---
Pt sitting up in bed, family in room, asking to go for a walk with PT. c/O headache, medicated with tylenol 650mg PO. Urostomy draining clear yellow urine to gravity, stoma beefy red, appliance in place. BP 131/71, 80, temp 98.5. 95%RA, LS clear and using I.S. for 1999. multiple areas to left elbow with bruising and dry flaky skin. RFA NS @ 100. Telemetry in place with NSR. Bed alarm on for safety.
[2018-07-06] MEDS: FLUTICASONE 120 SPRAY/16 GM SPRAY.SUSP NASAL (20:43)
[2018-07-07] VITALS (13 sets, daily range): BP systolic 132–145; BP diastolic 69–85; PULSE 62–91; RESP 16–18; TEMP 36.4–37.6; O2SAT 94–97
[2018-07-07] MEDS: SODIUM CHLORIDE 0.9% 1,000 ML 100 ML IV ×2 (00:09→10:32)
[2018-07-07] MEDS: LEVOTHYROXINE 100 MCG TABLET 200 MCG PO (06:18)
--- NOTE | 2018-07-07 07:03 | PM.PN.1 ---
Subjective Date Patient Seen: 07/07/18 Interval history: Francisco J Albarran is an 82-year-old male with a past medical history significant for bladder cancer status post urostomy, prostate cancer, thyroid cancer status post thyroidectomy with secondary hypothyroidism, coronary artery disease status post ME on chronic anticoagulation with Eliquis and hypertension who presented for fever and chills and was found to have E. coli bacteremia secondary to pyelonephritis. The patient is resting in bed comfortably. He has not had any fevers, chills, or rigors in the last 24 hours. He denies headache, cough, shortness of breath, chest pain, nausea, vomiting, diarrhea or constipation. The urine output through his urostomy has slowed down therefore IV fluids have been stopped and will be monitored closely. He is up ambulating with FWW and without assistance. Exam Vital Signs (past 8 hours): - 07/07/18 00:00 07/07/18 00:17 07/07/18 04:00 Temperature 98.2 F 98.2 F Pulse Rate 64 63 Respiratory Rate 16 16 Blood Pressure 132/69 135/76 Pulse Oximetry 96 95 96 07/07/18 04:25 Temperature Pulse Rate Respiratory Rate Blood Pressure Pulse Oximetry 95 Fraction of Inspired Oxygen 21 Oxygen Delivery Method Room Air Oxygen Flow Rate 0 Narrative Exam Narrative: General: Elderly gentleman lying in bed and in no acute distress, well-developed, well-nourished, appropriately interactive. HEENT: Normocephalic, atraumatic. External ears without defect. Pupils equal, round, and reactive to light. Anicteric sclerae, moist conjunctivae, and no lid lag. Neck: Supple with full range of motion. No lymphadenopathy or thyromegaly. Cardiovascular: Regular rhythm and rate without murmurs, rubs, or gallops appreciated Pulmonary: Clear to auscultation bilaterally without crackles, wheezes, or rhonchi. Normal respiratory effort with no use of accessory muscles. Abdomen: Soft, bowel sounds present, nontender, nondistended. No hepatosplenomegaly or masses appreciated. Stoma appears healthy with light urine. Extremities: No clubbing, cyanosis, or edema. Skin: Normal temperature, turgor, and texture; no rash, ulcers, or subcutaneous nodules appreciated. Neurological: Cranial nerves grossly intact. Psychiatric: Normal mood and affect. Alert and oriented to person, place, and time. Objective Labs Result Diagrams: 07/07/18 06:45 07/07/18 06:45 Labs: Laboratory Results - last 24 hr 07/06/18 07/06/18 07/06/18 06:50 06:50 06:50 WBC 7.8 RBC 3.61 L Hgb 10.8 L Hct 31.7 L MCV 87.8 MCH 30.0 MCHC 34.1 RDW 13.7 Plt Count 148 L Neut % (Auto) 80.5 H Lymph % (Auto) 7.6 L [place] % (Auto) 7.5 Eos % (Auto) 3.7 Baso % (Auto) 0.7 Neut # (Auto) 6200 Lymph # (Auto) 600 L [place] # (Auto) 600 Eos # (Auto) 300 Baso # (Auto) 100 Sodium 134 L Potassium 4.1 Chloride 104 Carbon Dioxide 26 BUN 15 Creatinine 0.80 Estimated GFR > 60.0 BUN/Creatinine Ratio 18.8 Glucose 90 Calcium 8.0 L Magnesium 1.8 Procalcitonin 5.69 H Assessment & Plan Assessment & Plan narrative: Francisco J Albarran is an 82-year-old male with a past medical history significant for bladder cancer status post urostomy, prostate cancer, thyroid cancer status post thyroidectomy with secondary hypothyroidism, coronary artery disease status post ME on chronic anticoagulation with Eliquis and hypertension who presented for fever and chills and was found to have E coli bacteremia secondary to pyelonephritis. 1. Acute sepsis, present on admission. Resolved. -Secondary to E coli bacteremia from pyelonephritis. Continue to treat as below. -Sepsis criteria met including: temp 101.1, HR 94, WBC 13.7, lactate 2.5, with organ dysfunction of metabolic encephalopathy and hypotension which was fluid responsive. -Early goal-directed therapy med including: IV fluid resuscitation and broad-spectrum antibiotics. -Trended lactic acid until below 2.0. 2. Acute E. coli bacteremia and pyelonephritis, present on admission. Active. -Patient has surgically absent bladder and presented with fevers and chills and was found to be septic as above. -Procalcitonin elevated and peaked at 14.74. Trending down, today 2.96. Trend daily. -Blood cultures positive for E. coli sensitive to ceftriaxone for which meropenem was stopped and ceftriaxone 2 g daily was started. Once the patient has defervesced and has remained afebrile for 48 hours, the antibiotics may be switched to an oral and will need to be continued for a total of 10 days. -Chest x-ray did not demonstrate any acute cardiopulmonary findings. -Continue maintenance IV fluid at 100 mL/hr and will give as needed boluses for hypotension. -Supportive care, analgesics and antiemetics. -Continue supplemental oxygen to keep SpO2 > 92% -Continue to monitor closely on telemetry. -Continue strict I&Os as patient has high volume output. 3. Acute metabolic encephalopathy, present on admission. Resolved. -Secondary to E. coli bacteremia and pyelonephritis. 4. Acute hypotension, secondary to hypovolemia and sepsis, present on admission. Resolved. -Patient is asymptomatic. Na 129, Cl 91. Patient reports high volume output of 5566-3890 mL via urostomy daily. -Continue to monitor blood pressure closely. Continue maintenance IV fluid at 100 mL/hr and will give as needed boluses for hypotension. 5. Essential hypertension, chronic, present on admission. Stable. -Blood pressure has been low normal to mildly hypotensive responsive to fluids. -Held home anti-hypertensives initially. Restarted metoprolol succinate 50 mg daily today. Will slowly restart other antihypertensive in the next 1-2 days as appropriate. 6. Acute generalized weakness, present on admission. Active. -Multifactorial secondary to underlying infection, hypermetabolic state and hyponatremia. Treat underlying pathology. -Ordered physical and occupational therapy evaluation and treatment, re: generalized weakness, at high risk for de-conditioning related to hospital admission. 7. Chronic anticoagulation with Eliquis, present on admission. Stable. -It is not entirely clear why patient is anticoagulated. Request records from Cardiology. -Continue Eliquis 5 mg twice daily. 8. CAD status post ME, chronic, present on admission. Stable. -Patient has no chest pain or active disease. -Continue aspirin 81 mg daily, atorvastatin 40 mg daily at bedtime, and Eliquis 5 mg twice daily. 9. Secondary hypothyroidism, chronic, present on admission. Stable. -Patient previously had thyroid cancer status post thyroidectomy. -TSH 10.50 and free T4 1.08. TSH suppression, for high-risk and intermediate-risk patients, the guidelines recommend initial TSH below 0.1 mU/L, and, for low-risk patients TSH at or slightly below the lower limit of normal (0.1?0.5 mU/L). -Increased levothyroxine to 200 mcg daily and will need to be followed up by motor vehicles inspector outpatient. 10. Normocytic normochromic anemia, chronic, present on admission. Stable. -Likely anemia of chronic disease. -Initial hemoglobin 12.5 which is higher than his baseline likely due to hemoconcentration from dehydration. -No overt signs of bleeding. -Continue to monitor hemoglobin and hematocrit closely. 11. Peripheral neuropathy, chronic, present on admission. Stable. -Continue home Lyrica 150 mg 3 times daily. Disposition: Likely to discharge in 1-2 days once infectious markers have decreased and he is afebrile for 48 hours and on oral antibiotics for bacteremia and pyelonephritis. Quality VTE Deep Vein Thrombosis/Pulmonary Embolism Present on Admission: No
[2018-07-07 07:16] LABS: Add Manual Diff / Slide Review NO; Basophils Absolute Auto 0 /uL (0-100); Basophils Percent Auto 0.7 % (0-2); Eosinophils Absolute Auto 500 /uL (0-450); Eosinophils Percent Auto 8.1 % (2-4); Hematocrit 31.7 % (41-53); Lymphocytes Absolute Auto 700 /uL (1100-4500); Lymphocytes Percent Auto 10.4 % (25-40); Mean Corpuscular HGB Conc 34.7 % (30-36); Mean Corpuscular Hemoglobin 29.9 PG (26-34); Mean Corpuscular Volume 86.2 fL (80-100); Monocytes Absolute Auto 500 /uL (0-900); Monocytes Percent Auto 8.8 % (3-14); Neutrophils Absolute Auto 4500 /uL (1500-7000); Platelet Count 155 X10^3/uL (150-400); Red Blood Cell Count 3.68 X10^6/uL (4.5-5.9); Red Cell Distribution Width 13.6 % (11.6-14.8); White Blood Cell Count 6.3 X10^3/uL (4.5-11.0)
[2018-07-07 07:45] LABS: Blood Urea Nitrogen 14 mg/dL (9-20); Calcium 8.1 mg/dL (8.4-10.2); Carbon Dioxide 28 mmol/L (22-32); Chloride 99 mmol/L (98-107); Estimated Glomerular Filt Rate > 60.0 mL/min (>60); Glucose 84 mg/dL (80-110); HEMOLYSIS < 15 (0-50); Potassium 3.8 mmol/L (3.4-5.1); Sodium 133 mmol/L (137-145)
[2018-07-07 07:59] LABS: Procalcitonin 2.96 ng/mL (<0.5)
[2018-07-07] MEDS: CEFTRIAXONE 2 GM/50 ML FROZ.PIGGY IV (08:35)
[2018-07-07] MEDS: ASPIRIN EC 81 MG TABLET PO (08:37)
[2018-07-07] MEDS: SENNOSIDES 8.6 MG TABLET PO ×2 (08:37→20:15)
[2018-07-07] MEDS: LOSARTAN 50 MG TABLET PO (08:37)
[2018-07-07] MEDS: PREGABALIN 75 MG CAPSULE 150 MG PO ×3 (08:37→20:14)
[2018-07-07] MEDS: ATORVASTATIN 20 MG TABLET 40 MG PO (08:37)
[2018-07-07] MEDS: METOPROLOL ER 25 MG TABLET PO (08:37)
[2018-07-07] MEDS: APIXABAN 5 MG TABLET PO ×2 (08:38→20:14)
[2018-07-07] MEDS: DOCUSATE 100 MG CAPSULE PO ×2 (08:38→20:14)
[2018-07-07] MEDS: AMLODIPINE 5 MG TABLET 10 MG PO (08:38)
--- NOTE | 2018-07-07 10:17 | OT.IP.TRT ---
Current Diagnoses Sepsis, unspecified organism (07/03/18) Occupational Therapy Treatment Note M2 OT-IP Current Condition Start: 07/06/18 16:57 Freq: Status: Active Protocol: Document 07/06/18 14:21 PJM (Rec: 07/06/18 17:15 PJM [id number]) Occupational Therapy Current Condition Current Condition Evaluation Date 07/06/18 Treatment Diagnosis decreased activity tolerance with DX of pyelonephritis w/ E coli bacteremia Diagnosis Onset Date 07/06/18 Post Operative Precautions Other Precautions fall risk M3 OT- IP Subjective and Pain Start: 07/06/18 16:57 Freq: Status: Active Protocol: Document 07/07/18 10:17 PJM (Rec: 07/07/18 13:26 PJM [id number]) OT- Subjective Occupational Therapy Visit Type Type Treatment Note Visit Start Time 10:20 Visit Stop Time 10:47 Total Visit Minutes 27 Notes Pt awake and alert in bedside chair; agreeable to tx. Occupational Therapy Visit Comments Patient Comments I hope I get to go home today. Patient/Caregiver Goals to return home and resume prior activities OT Pain Assessment Pain When Pain Assessed After Treatment Pain Present Pain Present Denied Pain M4 OT- IP ADL's Start: 07/06/18 16:57 Freq: Status: Active Protocol: Document 07/07/18 10:17 PJM (Rec: 07/07/18 13:26 PJM [id number]) OT [id number] General Evaluation Self-Feeding Ability Independent OT ADL-Grooming General Evaluation Grooming Ability Independent Areas Needing Assistance Face Washing Comments OT Grooming Comments Indep standing at sink with FWW with no LOB OT ADL-Oral Care Comments Oral Care Comments Indep standing at sink with FWW with no LOB, no dizziness reported OT ADL-Dressing General Eval Upper Body Dressing Ability Independent Areas Needing Assistance Socks Assistive Devices Dressing Assistive Devices Block Cuber Sock Aid Comments OT Dressing Comments Pt modif indep doffing B socks with long term care phlebotomist and donning R sock with hard sock aid and L sock without it. Pt stiff in R hip from previous R MARLON. Pt declined to don pants today. Educated pt to don and doff pants over feet while seated, not standing, to avoid standing on one foot due to fall risk. OT ADL-Toileting General Evaluation Toileting Ability Independent Areas Needing Assistance Empty Catheter or Colostomy Comments OT Toileting Comments pt indep with urostomy care including disconnecting from larger drainage bag and reconnecting ti after tx OT ADL-Bathing Comments OT Bathing Comments Pt states can assist PRN at home. Pt has all necessary bathroom safety equipt exept recommend grab bars in shower. M5 OT- IP IADL's Start: 07/06/18 16:57 Freq: Status: Active Protocol: Document 07/07/18 10:17 PJM (Rec: 07/07/18 13:26 PJ [id number]) OT-Instrumental Activities of Daily Living Deficits IADL Deficits Identified Deficits Home Safety Awareness Awareness of Need for Assistance at Home Good Awareness Ability to Problem Solve Emergency Able to Problem Solve Situations Medication Management Medication Management No Deficits Identified Money Management Money Management No Deficits Identified Meal Preparation Meal Preparation Caregiver Provides Assist Meal Preparation Comments pt states can assist PRN Tray Line Supervisor Tray Line Supervisor Caregiver Provides Assist Tray Line Supervisor Comments pt states can assist PRN Driving Driving Caregiver Provides Assist Driving Comments pt states can assist PRN M6 OT- IP Functional Cognition Start: 07/06/18 16:57 Freq: Status: Active Protocol: Document 07/07/18 10:17 PJM (Rec: 07/07/18 13:26 PJ [id number]) Cognitive Factors Limiting Selfcare Function Cognitive Ability Level of Alertness Alert Patient Orientation Name Age Birthday Month Date Year Day of Week Place Situation Attention Span Ability Capable of Focused Attention Capable of Sustained Attention Ability to Follow Commands Able to Follow Multi-Step Commands Memory Description No Deficits Noted Safety Awareness Decreased Recall of Precautions Cognitive Comments Cognitive Assessment Comments Cognition appears WFL OT- Vision and Hearing OT- Hearing Assessment OT- Hearing Assessment WFL OT- Vision Assessment Visual Acuity WFL Glasses All The Time M7 OT- IP Mobility and Balance Start: 07/06/18 16:57 Freq: Status: Active Protocol: Document 07/07/18 10:17 PJM (Rec: 07/07/18 13:26 PJ [id number]) OT-Transfer Assessment Sit to and From Stand Sit to and from Stand Independent Transfers Transfer Ability Independent Technique Transfer Technique Stand Step Pivot Devices Transfer Assistive Devices Front Wheeled Walker Comments Mobility Comments Pt needed assist with IV pole only. OT- Gait Assessment Gait Gait Assistance Required: Independent Distance (Feet) 15 Assistive Devices Assistive Device Front Wheeled Walker Comments Gait Ability Comments to sink and back to chair OT- Balance Assessment Sitting Balance and Reactions Static Sitting Balance Ability Good Dynamic Sitting Balance Ability Good Standing Balance and Reactions Static Standing Balance Ability Good Dynamic Standing Balance Ability Good Comments Other Balance Tests/Deviations/Treatment during grooming at sink and : dressing M8 OT- IP Objective Assessments Start: 07/06/18 16:57 Freq: Status: Active Protocol: Document 07/06/18 14:21 PJM (Rec: 07/06/18 17:15 PJM [id number]) OT Strength Upper Extremity Strength Assessment Within Functional Limits Hand Clinical Nurse Manager Strength Hand Dominance Right OT- Coordination Assessment Comments Coordination Comments BUE WFL OT-Muscle Tone Assessment Muscle Tone WNL Yes OT Sensation Assessment Comments Summary Comments Pt denies deficits; note pt wears cotton gloves on hands most of the time due to Raynaud's Edema Edema Absent M9 OT- IP Assessment and Plan Start: 07/06/18 16:57 Freq: Status: Active Protocol: Document 07/07/18 10:17 PJM (Rec: 07/07/18 13:26 PJM [id number]) OT Summary Assessment and Plan Potential Rehabilitation Potential Good Summary Progress Towards Goals Safe For Discharge Goals Met Assessment Summary All OT goals achieved for this admission. Pt appears to be at his baseline level of self care function. No further OT services needed for this admission. Anticipate pt will d/c home with when medically stable and clears P.T. Frequency of Treatment Frequency Of Treatment Discharge Discharge Recommendations OT Discharge Recommendations Home with Assistance Home Equipment Needs recommend grab bars in shower
--- NOTE | 2018-07-07 10:18 | PT.IIE ---
Current Diagnoses Sepsis, unspecified organism (07/03/18) Surgical History (Last Reviewed 07/04/18 @ 02:32 by SERGIO Castillo) H/O colectomy (Acute) H/O thyroidectomy (Acute) History of appendectomy (Acute) History of urostomy (Acute) Medical History (Last Reviewed 07/04/18 @ 02:32 by SERGIO Castillo) Bladder cancer (Acute) Coronary artery disease (Acute) Hypertension (Acute) Hyponatremia (Acute) Hypothyroid (Acute) Kidney stones (Acute) Prostate cancer (Acute) Thyroid cancer (Acute) Physical Therapy Inpatient Evaluation/Re-Eval M1 PT/OT-IP Prior Functional Status Start: 07/06/18 15:28 Freq: NEEDED Status: Active Protocol: Document 07/07/18 10:18 DLM (Rec: 07/07/18 12:30 DLM [id number]) Medical Review Prior Functional Status Medical History Reviewed Yes Diet/Fluid Consistency Regular Communication WNL Mobility and Gait Pt has chronic vertigo and balance issues but denies any recent falls. He ws going to out pt P.T. to work on balance and strengthening. Pt states he ambulated without a device in house and used cane in community. Activities of Daily Living and IADL's Pt states he was independent with all self care at home. 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 not here to confirm home situation. Social History Household Members spouse Living Arrangements Apartment/Condo Number of Floors (Floors) One Floor Number of Stairs To Enter/Railing? 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 Aid Employment Status Retired Additional Social History Comment he reports he can use his 's 4WW at discharge, can get another walker for himself at [employer] if needed, has been attending out-pt PT for strengthening and balance M2 PT-IP Current Condition Start: 07/06/18 15:28 Freq: NEEDED Status: Active Protocol: Document 07/07/18 10:18 DLM (Rec: 07/07/18 12:30 DLM [id number]) Physical Therapy Current Condition Current Condition Evaluation Date 07/07/18 Treatment Diagnosis weakness associated with sepsis Onset Date 07/03/18 Precautions Other Precautions right hip ORIF 10/2017 Weight Bearing Status Weight Bearing Status Full Weight Bearing M3 PT-IP Subjective Start: 07/06/18 15:28 Freq: NEEDED Status: Active Protocol: Document 07/07/18 10:18 DLM (Rec: 07/07/18 12:30 DLM [id number]) Subjective Physical Therapy Visit Type Type Initial Evaluation Visit Start Time 09:45 Visit Stop Time 10:18 Total Visit Minutes 33 Number of APARTMENT LEASING CONSULTANT Visits 0 Physical Therapy Visit Comments Patient Comments he thinks he will use a FWW/ 4WW for a while until he feels stronger Patient Goals he wants to go home Therapy Pain Assessment Pain When Pain Assessed During Mobility Pain Present Pain Present Denied Pain M4 PT-IP Mobility and Gait Start: 07/06/18 15:28 Freq: NEEDED Status: Active Protocol: Document 07/07/18 10:18 DLM (Rec: 07/07/18 12:30 DLM [id number]) PT-Bed Mobility Assessment Supine to Sit Supine to Sit Independent Sit to Supine Sit to Supine Independent Scooting Scooting to Edge of Bed Independent PT-Transfer Assessment Sit to and From Stand Sit to and from Stand Independent Use of Upper Extremities Equipment Transfer Assistive Device Gait Belt Front Wheeled Walker Transfers Transfer Destination Chair Transfer Technique Stand Step Pivot Transfer Ability Level of Assist Independent Use of Upper Extremities Comments Mobility Comments needs help to manage IV Gait Assessment Gait Gait Assistance Required: Independent Distance (Feet) 300 Assistive Devices Assistive Device Gait Belt Front Wheeled Walker Factors Limiting Gait Function Factors Limiting Gait Function Decreased Activity Tolerance Comments Gait Comments demonstrates safe use of FWW for gait, pt up to recliner this visit Stair Climbing Assessment Evaluation Level of Assist On Stairs Independent Devices Stair Climbing Assistive Devices Left Railing Right Railing Technique/Endurance Stair Climbing Direction Ascend and Descend Stair Climbing Technique Step Over Step Step to Step Number of Steps Climbed 3 Query Text: Stair Climbing Set # Repetitions (reps) 1 Comments Stair Climbing Comments helped him with IV and gomez catheter PT-Balance Assessment Sitting Balance and Reactions Static Sitting Balance Ability Normal Dynamic Sitting Balance Ability Normal Standing Balance and Reactions Static Standing Balance Ability Good Dynamic Standing Balance Ability Good Device Used FWW M5 PT-IP Objective Assessments Start: 07/06/18 15:28 Freq: NEEDED Status: Active Protocol: Document 07/07/18 10:18 DLM (Rec: 07/07/18 12:30 DLM [id number]) Orientation Orientation/Cognition Level of Alertness Alert Orientation Name Age Birthday Month Date Year Day of Week Place Situation Language Function Ability No Deficits Noted Safety Awareness Understands Safety Issues Memory Description No Deficits Noted Gross Range of Motion Upper Extremity ROM Assessment Within Functional Limits Lower Extremity ROM Assessment Right Impaired Impairments right hip stiffness since fx and ORIF Strength Upper Extremity Strength Assessment Within Functional Limits Lower Extremity Strength Assessment Right Impaired Hip hip flexion 4/5 Knee knee ext 4+/5, flexion 4/5 Ankle DF 5/5 Coordination Assessment Gross Coordination Gross Coordination WNL Sensation Assessment Sensation Gross Sensation Right UE Impaired Left UE Impaired Right LE Impaired Left LE Impaired Sensation Description Numbness Coldness Pain Comments Sensation Comments hx of neuropathy and hands and feet following cancer treatments, pt often wears gloves on his hands due to cold Muscle Tone Muscle Tone WNL Yes M6 PT-IP Treatment Start: 07/06/18 15:28 Freq: NEEDED Status: Active Protocol: Document 07/07/18 10:18 DLM (Rec: 07/07/18 12:30 DLM [id number]) Physical Therapy Treatment Education Education Provided Safety M7 PT-IP Assessment and Plan Start: 07/06/18 15:28 Freq: NEEDED Status: Active Protocol: Document 07/07/18 10:18 DLM (Rec: 07/07/18 12:30 DLM [id number]) PT Summary Assessment and Plan Potential Rehabilitation Potential Excellent Status of Condition at Evaluation Evolving Summary Impairments Strength Gait Activity Tolerance Assessment Summary Don tolerated gait in fallon well this visit. His using a FWW today which makes him feel safer and manages his energy well. He uses a cane at baseline. He appears safe to discharge tati with his when medically stable. Will defer further physical therapy to out-pt. Recommend he continue to ambulate in halls with nursing supervision. Frequency of Treatment Frequency Of Treatment Discharge Recommendations To Nursing Amount of Assist Needed Standby Assistance Discharge Recommendations PT Discharge Recommendations Home with Assistance Outpatient PT Other Discharge Recommendations return to out-pt PT Equipment Needed for Home Before he plans to use 's 4WW Discharge
[2018-07-07] MEDS: SODIUM CHLORIDE 0.9% FLUSH 10 ML IV (20:14)
[2018-07-07] MEDS: ACETAMINOPHEN 325 MG TABLET 650 MG PO (20:19)
[2018-07-08] VITALS (8 sets, daily range): BP systolic 134–151; BP diastolic 62–80; PULSE 60–68; RESP 18; TEMP 36.6–37.5; O2SAT 95–98
[2018-07-08] MEDS: LEVOTHYROXINE 100 MCG TABLET 200 MCG PO (05:51)
--- NOTE | 2018-07-08 06:06 | PC.NURSE ---
Pt refusing a new IV site because he thinks he will be discharged today; I explained he might not be and that the IV site is , but pt still refusing. Will pass along to next RN. Urostomy is clear, patent, draining yellow urine. No complaints of pain. Vitals stable. Tele is NSR
[2018-07-08 07:22] LABS: Add Manual Diff / Slide Review NO; Basophils Absolute Auto 100 /uL (0-100); Basophils Percent Auto 0.9 % (0-2); Eosinophils Absolute Auto 500 /uL (0-450); Eosinophils Percent Auto 9.4 % (2-4); Hematocrit 31.6 % (41-53); Hemoglobin 10.9 g/dL (13.5-17.5); Lymphocytes Absolute Auto 800 /uL (1100-4500); Lymphocytes Percent Auto 14.3 % (25-40); Mean Corpuscular HGB Conc 34.4 % (30-36); Mean Corpuscular Hemoglobin 29.7 PG (26-34); Mean Corpuscular Volume 86.3 fL (80-100); Monocytes Absolute Auto 600 /uL (0-900); Monocytes Percent Auto 10.1 % (3-14); Neutrophils Absolute Auto 3700 /uL (1500-7000); Neutrophils Percent Auto 65.3 % (50-75); Platelet Count 162 X10^3/uL (150-400); Red Blood Cell Count 3.66 X10^6/uL (4.5-5.9); Red Cell Distribution Width 13.6 % (11.6-14.8); White Blood Cell Count 5.7 X10^3/uL (4.5-11.0)
[2018-07-08 07:43] LABS: BUN Creatinine Ratio 21.3 (6-22); Blood Urea Nitrogen 17 mg/dL (9-20); Calcium 8.1 mg/dL (8.4-10.2); Carbon Dioxide 30 mmol/L (22-32); Chloride 96 mmol/L (98-107); Estimated Glomerular Filt Rate > 60.0 mL/min (>60); Glucose 91 mg/dL (80-110); HEMOLYSIS < 15 (0-50); Sodium 133 mmol/L (137-145)
[2018-07-08 08:22] LABS: Procalcitonin 1.63 ng/mL (<0.5)
[2018-07-08] MEDS: AMLODIPINE 5 MG TABLET 10 MG PO (08:57)
[2018-07-08] MEDS: APIXABAN 5 MG TABLET PO (08:57)
[2018-07-08] MEDS: ASPIRIN EC 81 MG TABLET PO (08:57)
[2018-07-08] MEDS: DOCUSATE 100 MG CAPSULE PO (08:57)
[2018-07-08] MEDS: PREGABALIN 75 MG CAPSULE 150 MG PO (08:57)
[2018-07-08] MEDS: ATORVASTATIN 20 MG TABLET 40 MG PO (08:57)
[2018-07-08] MEDS: METOPROLOL ER 25 MG TABLET PO (08:57)
[2018-07-08] MEDS: LOSARTAN 50 MG TABLET PO (08:58)
[2018-07-08] MEDS: FLUTICASONE 120 SPRAY/16 GM SPRAY.SUSP NASAL (08:59)
[2018-07-08] MEDS: SODIUM CHLORIDE 0.9% FLUSH 10 ML IV (08:59)
[2018-07-08] MEDS: SENNOSIDES 8.6 MG TABLET PO (09:00)
--- NOTE | 2018-07-08 11:40 | PC.NURSE ---
Pt dressed and ready for discharge home with family. Went over d/c instructions with Pt and Spouse -discussed d/c meds, time of last dose, follow up appointment, encouraged Pt to watch for signs of infection/sepsis to be seen early before he gets really sick. Encouraged fluid intake. Reviewed stroke education. 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
--- NOTE | 2018-07-22 17:19 | P.DS_ITS ---
History of Present Illness Date Patient Seen: 07/09/18 Chief complaint: blood pressure all over the place, josue Narrative: PMH: bladder cancer (h/o chronic urostomy), prostate cancer, thyroid cancer, nephrolithiasis (x1, passed), CAD, HTN, surgical hypothyroidism (s/p thyroidectomy), vertigo, h/o left hip fx (10/2017, s/p ORIF), chronic anticoagulation (apixaban, re ?), chronic constipation The patient is an 82-year-old male with aforementioned PMHx, presented to the ED on 07/03/2018 to be evaluated for fever and chills. Symptom onset is sudden, initially noted at 1300 on 07/03/2018. Associated symptoms include disorientation and malaise. Baseline mental status known to be alert and oriented x3. Reports experiencing dizziness, however not worse than usual ( underlying history of vertigo, on meclizine daily). Patient has not experienced CP, palpitations, syncopal events, dyspnea, peripheral edema, abdominal pain, or gastrointestinal distress. Notes there is some residual blood via urostomy, but no overt bleeding. Appetite and weight stable, no change in weight. Denies N/V/D. In fact, has constipation, BM pattern Q3 days. Endorses an overall decreased mobility, has required more frequent use of an assistive device (cane) for ambulation. Patient is known to have chronic urostomy secondary to a h/o bladder cancer. urostomy has been in place for 15 years. Patient notes management of the urostomy himself. Typically changes out 1-2 times weekly. Last change on 07/03/2018 prior to ED presentation. Patient denies contact with ill persons. Known to have had a short inpatient hospitalization for hyponatremia earlier in the month which was associated with use of hydrochlorothiazide, since then the medication has been discontinued. Patient is on chronic Eliquis anticoagulation, the reason is not entirely known. He reports history of CAD and IA, but does not endorse any cardiac interventions. Denies history of an arrhythmia, valvular heart disease, PVD, cerebrovascular events, or thrombosis. States that he was placed on Eliquis in the past year. follows with Dr. Mueller (cardiology) and Arpita Santos NP (PCP). Discharge Providers Date of admission: 07/03/18 21:06 Discharge Date: 07/09/18 Primary care physician: SERGIO Hooper Consults: 07/05/18 10:21 Consult to Respiratory Therapy Evaluate & Treat Comment: Physician Instructions: Evaluate and treat 07/06/18 10:56 Consult to Occupational Therapy Evaluate & Treat Comment: Physician Instructions: Evaluate and treat Consult to Physical Therapy Evaluate & Treat Comment: Physician Instructions: Evaluate and Treat Discharge provider: Teresa Rothman MD Summary Discharge Diagnosis: 1. Sepsis present on admission 2. E coli bacteremia, present on admission 3. Acute pyelonephritis, present on admission 4. Acute metabolic encephalopathy, present on admission 5. Essential hypertension, chronic 6. Hypothyroidism, chronic 7. Coronary artery disease, chronic 8. Anemia, chronic 9. Weakness, chronic 10. Chronic anticoagulation, chronic 11. History of bladder cancer, chronic 12. History of prostate cancer, chronic 13. hyponatremia, present on admission 13. History of thyroid cancer status post subtotal thyroidectomy, chronic Hospital Course: The patient is an 82-year-old male who was admitted to the hospital for sepsis secondary to E coli bacteremia from pyelonephritis. He presented with acute metabolic encephalopathy. The patient was given IV fluids IV antibiotics with improvement of his symptomatology. Once the E coli was identified and susceptibilities were available the patient was switched to oral antibiotics. His hypertension chronic weakness coronary disease and anemia were all managed during the hospital stay. He was found to be hypothyroid in his thyroid medication was adjusted. After several days of antibiotics the patient had significant improvement in his symptomatology. He was deemed appropriate for discharge and arrangements were made for him to be discharged home. Status at Discharge Cognitive/behavioral status at discharge: oriented Functional status at discharge: uses cane/walker Overall status at discharge: patient is back to baseline Time Spent with Patient Less than 30 minutes Exam Vital Signs (past 8 hours): Fraction of Inspired Oxygen 21 Oxygen Delivery Method Room Air Oxygen Flow Rate 0 Narrative Exam Narrative: Elderly male in no obvious distress Lungs: Clear to auscultation Cardiac exam: Regular rate rhythm normal S1-S2 Abdomen: Soft nontender nondistended urostomy in place with clean urine Extremities: No edema Objective Labs Result Diagrams: 07/08/18 06:37 07/08/18 06:37 Discharge Plan Discharge Plan Patient Disposition: Home Discharge Med Rec/Prescriptions Prescriptions: New levothyroxine [Synthroid] 100 mcg Tablet 200 mcg PO 0600 30 Days Qty: 60 RF: 0 metoprolol succinate 25 mg Tablet Extended Release 24 Hr 25 mg PO DAILY 30 Days RF: 0 fluticasone propionate 50 mcg/actuation [place],Suspension 1 spray Intranasal BID 30 Days RF: 0 ciprofloxacin HCl 250 mg tablet 250 mg PO BID Qty: 4 RF: 0 Continued losartan 50 mg tablet 1 tab PO DAILY RF: 0 atorvastatin 40 mg tablet 1 tab PO DAILY RF: 0 docusate calcium 240 mg capsule 1 cap PO QPM RF: 0 aspirin 81 mg tablet,delayed release (DR/EC) 1 tab PO DAILY RF: 0 pregabalin 150 mg capsule 1 cap PO TID RF: 0 sennosides [senna] 8.6 mg Tablet 8.6 mg PO BID RF: 0 amlodipine 10 mg tablet 1 tab PO DAILY RF: 0 metoprolol succinate 25 mg tablet extended release 24 hr 1 tab PO DAILY RF: 0 diphenhydramine-acetaminophen [Acetaminophen PM] 25-500 mg Tablet 1 tab PO BEDTIME PRN (Reason: Insomnia) RF: 0 docusate sodium 100 mg Tablet 100 mg PO BID RF: 0 apixaban 5 mg tablet 1 tab PO BID RF: 0 meclizine 25 mg tablet 25 mg PO TID PRN (Reason: Dizziness Or Vertigo) RF: 0 Discontinued levothyroxine 125 mcg tablet 1 tab PO DAILY RF: 0 Follow up/Referrals: Arpita Fall ARNP [Primary Care Provider] - Visit Report/Discharge Packet Instructions: DI for Urinary Tract Infection (UTI), How to Prevent Falls Discharge Data Primary Care Provider: Arpita Fall Attending Provider: Bowen Alejandra Admit Date/Time: 07/03/18 21:06 Discharges patient from system. Discharge Date/Time: 07/08/18 11:45 Quality VTE Deep Vein Thrombosis/Pulmonary Embolism Present on Admission: No
== END 2018-07-08 11:45 | disposition home or self-care (01) | DRG 871 ==
LOC: ED 20:01 → AC 21:07
PROVIDERS: Emergency Medicine; Internal Medicine; Admitting Provider Nurse Practitioner Gerontology; Emergency Provider Emergency Medicine; Family Provider Nurse Practitioner Gerontology; PCP Nurse Practitioner Gerontology; Visit Provider Nurse Practitioner Gerontology
DX: A41.51 Sepsis due to Escherichia coli [E. coli] (principal); G93.41 Metabolic encephalopathy; N10 Acute pyelonephritis; R65.20 Severe sepsis without septic shock; I95.9 Hypotension, unspecified; E86.9 Volume depletion, unspecified; I10 Essential (primary) hypertension; I25.10 Atherosclerotic heart disease of native coronary artery without angina pectoris; E89.0 Postprocedural hypothyroidism; Z87.891 Personal history of nicotine dependence
CPT/HCPCS: 36415; 36591; 71045; 71046; 80048; 80053; 81001; 83605; 83735; 84145; 84439; 84443; 85025; 85610; 85730; 87040; 87077; 87086; 87150; 87186; 87205; 87400; 94760; 96361; 96365; 96375; 97162; 97165; 97535; 99284; 99285; J0696; J2185

== ENCOUNTER → 2018-07-22 13:09 | Outpatient (CLI) | payer MEDICARE, OTHER, SELFPAY ==
[2018-06-12 00:25] VITALS: BMI 26.2
[2018-07-03 23:20] VITALS: BMI 25.5
--- NOTE | 2018-07-22 | DI.ECHO.S_ITS ---
[facility]---------+ [facility] +---------+ : : [address] [place] : : : : [id number] : : : : Phone: [phone]+ Echocardiogram Report + + :Name: DELILAH SANTILLAN Study Date: 07/22/2018 Height: 70 in : :[facility] Exam Location: [place] Weight: 183 lb : : Gender: Male BSA: 2.0 m2 : :: 1935 Age: 82 yrs BP: 128/60 mmHg: :Reason For Study: DILATED ASCENDING AORTA : : Performed By: Dre Brown : :Referring: LEI SIMENTAL : + + Interpretation Summary The left ventricle is normal in size. The ejection fraction is estimated to be 60-65%. No significant change in LV ejection fraction. There is no LV thrombus. The right ventricle is normal in size and function. There is mild to moderate mitral regurgitation. Compared to the prior echo study, there has been no change in the severity of mitral regurgitation. There is mild aortic regurgitation. Compared to the prior echo study, there has been a decrease in the severity of aortic regurgitation. There is mild tricuspid regurgitation. Compared to the prior echo exam, there has been no change in TR severity. The right ventricular systolic pressure is estimated to be at least 24 mmHg based on an estimated right atrial pressure of 3 mm Hg. The ascending aorta is moderately enlarged. 4.3 cm in diameter.In or 2016 it was about 4.2 cm in diameter. Procedure: A two-dimensional transthoracic echocardiogram with color flow and Doppler was performed. The study quality was technically adequate. Comparison is made with the echocardiogram of 12/20/15. The patient was in normal sinus rhythm during the exam. Left Ventricle: The left ventricle is normal in size. Proximal septal thickening is noted. There is no echo evidence for significant left ventricular outflow tract obstruction. There is no thrombus. The ejection fraction is estimated to be 60-65%. There are no focal wall motion abnormalities. MV E/A: 1.0 Med Peak E' Andrea: 4.6 cm/sec E/E' med: 12.5. Right Ventricle: The right ventricle is normal in size and function. Atria: Both atria are normal in size. The left atrium has mildly decreased in size since the prior echo exam. The interatrial septum is intact with no evidence for an atrial septal defect. Mitral Valve: There is systolic anterior motion of the chordal apparatus. There is mild mitral annular calcification. The mitral valve leaflets appear borderline thickened, but open well. There is mild to moderate mitral regurgitation. Compared to the prior echo study, there has been no change in the severity of mitral regurgitation. Aortic Valve: The aortic valve is trileaflet. The aortic valve opens well. There is discrete nodular thickening of the non- coronary cusp. There is no aortic valve stenosis. There is mild aortic regurgitation. Compared to the prior echo study, there has been a decrease in the severity of aortic regurgitation. Tricuspid Valve: The tricuspid valve is normal. There is mild tricuspid regurgitation. The right ventricular systolic pressure is estimated to be at least 24 mmHg based on an estimated right atrial pressure of 3 mm Hg. Compared to the prior echo exam, there has been no change in TR severity. Pulmonic Valve: The pulmonic valve is normal in structure and function. There is trace pulmonic regurgitation. Great Vessels: The aortic root is normal size. The ascending aorta is moderately enlarged. The aortic arch is normal in size. The pulmonary artery is normal size. The IVC is of normal diameter and collapses greater than 50% with a sniff. This suggests a low right atrial pressure of 3 mm Hg. Pericardium/ Pleura There is no pericardial effusion. There is no pleural effusion. MMode/2D Measurements & Calculations LVIDd: 5.2 cm LVOT diam: 2.3 cm LVIDs: 2.8 cm Ao root diam: 4.1 cm FS: 45.8 % asc Aorta Diam: 4.3 cm EPSS: 0.18 cm Ao Arch Diam (Prox Trans): 2.9 cm IVSd: 0.85 cm LVPWd: 0.88 cm LV lenz. diameter/BSA (cm/m^2): 2.6 LV sys. diameter/BSA (cm/m^2): 1.4 LA dimension: 3.7 cm RA long axis: 5.6 cm LA A2 area: 17.6 cm2 RA area: 19.2 cm2 LA A4 area: 21.1 cm2 RA vol: 55.9 ml LA length (vol): 5.4 cm RA : 27.8 ml/m2 LA vol: 59.0 ml IVC diam: 1.9 cm LA vol index: 29.3 ml/m2 RVD1 (basal): 3.9 cm RVD2 (mid): 3.9 cm Doppler Measurements & Calculations Ao V2 max: 139.2 cm/sec LVOT Max Andrea: 98.9 cm/sec Ao V2 mean: 98.3 cm/sec LV V1 max P.9 mmHg Ao max P.7 mmHg LV V1 VTI: 27.9 cm Ao mean P.2 mmHg BARRIE(I,D): 3.7 cm2 Ao V2 VTI: 31.3 cm BARRIE(V,D): 3.0 cm2 sev ratio: 0.89 BARRIE indexed to BSA (cm^2/m^2): 1.9 AI P1/2t: 912.2 msec AI dec slope: 132.0 cm/sec2 MV E max andrea: 58.1 cm/sec TR max andrea: 230.2 cm/sec MV A max andrea: 57.5 cm/sec TR max P.2 mmHg MV E/A: 1.0 PA V2 max: 68.4 cm/sec Med Peak E' Andrea: 4.6 cm/sec PA V2 mean: 48.5 cm/sec E/E' med: 12.5 PA mean P.0 mmHg Lat Peak E' Andrea: 6.2 cm/sec PA pr(Accel): 29.1 mmHg E/E' lat: 9.4 E/e' average: 11.0 MV dec time: 0.22 sec SV(LVOT): 116.8 ml Reading Physician:AM
== END ==
PROVIDERS: PCP Nurse Practitioner Gerontology; Visit Provider Internal Medicine Cardiovascular Disease
DX: I08.3 Combined rheumatic disorders of mitral, aortic and tricuspid valves (principal); I77.810 Thoracic aortic ectasia; I48.0 Paroxysmal atrial fibrillation
CPT/HCPCS: 93306

== ENCOUNTER 2018-08-09 04:43 | Inpatient (IN) | payer MEDICARE, OTHER, SELFPAY ==
[2018-07-03 23:20] VITALS: BMI 25.5
[2018-08-09] VITALS (31 sets, daily range): BP systolic 61–124; BP diastolic 38–76; PULSE 65–101; RESP 15–26; TEMP 36.7–39.4; O2SAT 92–97; BMI 25.8
--- NOTE | 2018-08-09 05:05 | ED.GENADULT ---
HPI - General Adult General Chief complaint: Fever Stated complaint: Has shakes, possible fever, not walking well wobbl Time Seen by Provider: 08/09/18 04:56 Source: patient and family Mode of arrival: ambulatory Limitations: altered mental status History of Present Illness HPI narrative: Patient is an 82-year-old male brought in by his for concerns of confusion and fever and not feeling well. Patient has had urosepsis and bacteremia in the past with the last episode being approximately 1 month ago. He is not currently on any antibiotics. Patient's states that his presentation today is similar to that presentation. She states that yesterday he started to have some fevers however was not confused. She has been given him Tylenol. Last dose of Tylenol was 1 hour prior to coming into the emergency department. She states that he woke up this morning and was more confused and more unsteady on his feet than normal. Related Data Home Medications Medication Instructions Recorded Confirmed aspirin 1 tab PO DAILY 11/07/17 07/04/18 atorvastatin 1 tab PO DAILY 11/07/17 07/04/18 docusate calcium 1 cap PO QPM 11/07/17 07/04/18 losartan 1 tab PO DAILY 11/07/17 07/04/18 pregabalin 1 cap PO TID 11/07/17 07/04/18 amlodipine 1 tab PO DAILY 06/11/18 07/04/18 apixaban 1 tab PO BID 06/11/18 07/04/18 diphenhydramine-acetaminophen 1 tab PO BEDTIME PRN 06/11/18 07/04/18 [Acetaminophen PM] docusate sodium 100 mg PO BID 06/11/18 07/04/18 meclizine 25 mg PO TID PRN 06/11/18 07/04/18 metoprolol succinate 1 tab PO DAILY 06/11/18 07/04/18 sennosides [senna] 8.6 mg PO BID 06/11/18 07/04/18 Previous Rx's Medication Instructions Recorded ciprofloxacin HCl 250 mg PO BID #4 tab 07/08/18 Allergies Allergy/AdvReac Type Severity Reaction Status Date / Time No Known Drug Allergies Allergy Verified 11/07/17 20:47 Review of Systems Constitutional Reports fever(s) Cardiovascular Denies chest pain and Denies dyspnea Respiratory Denies dyspnea Gastrointestinal Gastrointestinal: Denies abdominal pain and Denies vomiting Integumentary/Breasts Denies rash Neurologic Reports confusion Psychiatric Reports confusion [facility] Medical History Bladder cancer (Acute) Coronary artery disease (Acute) Hypertension (Acute) Hyponatremia (Acute) Hypothyroid (Acute) Kidney stones (Acute) Prostate cancer (Acute) Thyroid cancer (Acute) Social History household members: spouse Smoking Status: Former smoker alcohol intake: former substance use type: does not use Exam Initial Vital Signs Initial Vital Signs: Vital Signs Temperature 99.0 F 08/09/18 04:48 Pulse Rate 101 H 08/09/18 04:48 Respiratory Rate 26 H 08/09/18 04:48 Blood Pressure 124/62 08/09/18 04:48 Pulse Oximetry 95 08/09/18 04:48 Const General: comfortable and well developed Orientation: alert, awake, oriented to person and confused HENMT Head: normal to inspection and normocephalic Resp Effort & Inspection: normal respiratory effort Auscultation: clear to auscultation bilaterally Cardio Rate: tachycardic Rhythm: regular rhythm Pulses: radial pulses present GI Inspection: non-distended Palpation: soft and No tender Other: Patient with urostomy bag in place Skin Lesions: no lesions Rashes: no rashes Neuro General: alert and awake Extrem General: capillary refill normal Psych Appearance: grossly normal and well kempt Course Orders Ordered: ED Orders 08/09/18 05:05 Basic Metabolic Panel Stat Blood Culture Stat Complete Blood Count AUTO DIFF Stat Lactate (Lactic Acid) Stat Partial Thromboplastin Time Stat Procalcitonin Stat Prothrombin Time INR Stat 08/09/18 05:09 Urinalysis and Microscopic Stat Urine Culture Stat Sodium Chloride (Normal Saline 0.9%) 1,000 mls @ 125 mls/hr IV CONT FRED Last Admin: 08/09/18 05:20 Dose: 125 mls/hr Sodium Chloride (Normal Saline 0.9%) 1,000 mls @ 1,000 mls/hr IV BOLUS ONE Stop: 08/09/18 06:35 Ceftriaxone Sodium/Dextrose (Rocephin) 1 gm in 50 mls @ 100 mls/hr IV NOW ONE Stop: 08/09/18 06:06 Last Admin: 08/09/18 05:46 Dose: 100 mls/hr Ibuprofen (Advil) 400 mg PO NOW ONE Stop: 08/09/18 05:50 Vital Signs - 8 hr 08/09/18 04:48 08/09/18 05:00 08/09/18 05:27 Temperature 99.0 F 103.0 F H Pulse Rate 101 H 100 H Respiratory Rate 26 H 22 Blood Pressure 124/62 Blood Pressure [Right Arm] 114/53 L Pulse Oximetry 95 93 08/09/18 05:30 Temperature Pulse Rate 92 H Respiratory Rate 22 Blood Pressure Blood Pressure [Right Arm] 99/53 L Pulse Oximetry 94 Medical Decision Making Medical Records Medical records reviewed: Yes I reviewed the patient's medical records. Lab Data Lab results reviewed: Yes I reviewed the patient's lab results. Result diagrams: 08/09/18 05:05 08/09/18 05:05 Lab Results 08/09/18 08/09/18 08/09/18 Range/Units 05:05 05:05 05:05 WBC 7.5 (4.5-11.0) X10^3/uL RBC 4.19 L (4.5-5.9) X10^6/uL Hgb 12.4 L (13.5-17.5) g/dL Hct 36.0 L (41-53) % MCV 86.0 (80-100) fL MCH 29.6 (26-34) PG MCHC 34.4 (30-36) % RDW 14.0 (11.6-14.8) % Plt Count 187 (150-400) X10^3/uL Neut % (Auto) 93.9 H (50-75) % Lymph % (Auto) 4.8 L (25-40) % [place] % (Auto) 0.3 L (3-14) % Eos % (Auto) 0.8 L (2-4) % Baso % (Auto) 0.2 (0-2) % Neut # (Auto) 7000 (9889-1029) /uL Lymph # (Auto) 400 L (1752-0910) /uL [place] # (Auto) 0 (0-900) /uL Eos # (Auto) 100 (0-450) /uL Baso # (Auto) 0 (0-100) /uL PT 17.3 H (10.1-12.7) SECONDS INR 1.5 H (0.9-1.3) APTT 28 D (26.4-36.2) SECONDS Sodium 128 L (137-145) mmol/L Potassium 4.6 (3.4-5.1) mmol/L Chloride 92 L (98-107) mmol/L Carbon Dioxide 25 (22-32) mmol/L BUN 23 H (9-20) mg/dL Creatinine 1.10 (0.66-1.25) mg/dL Estimated GFR > 60.0 (>60) mL/min BUN/Creatinine Ratio 20.9 (6-22) Glucose 106 (80-110) mg/dL Lactate (0.7-2.1) mmol/L Calcium 8.8 (8.4-10.2) mg/dL Urine Color Urine Appearance Urine pH (4.5-8.0) Ur Specific [place] (1.000-1.035) Urine Protein (Negative) Urine Glucose (UA) (Negative) g/dL Urine Ketones (NEGATIVE) Urine Occult Blood (Negative) Urine Nitrate (Negative) Urine Bilirubin (NEGATIVE) Urine Urobilinogen (0.2) E.U./dL Ur Leukocyte Esterase (NEGATIVE) Urine RBC (0-5/HPF) Urine WBC (0-5/HPF) Urine Bacteria (None) Ur Culture Indicated? 08/09/18 08/09/18 Range/Units 05:05 05:09 WBC (4.5-11.0) X10^3/uL RBC (4.5-5.9) X10^6/uL Hgb (13.5-17.5) g/dL Hct (41-53) % MCV (80-100) fL MCH (26-34) PG MCHC (30-36) % RDW (11.6-14.8) % Plt Count (150-400) X10^3/uL Neut % (Auto) (50-75) % Lymph % (Auto) (25-40) % [place] % (Auto) (3-14) % Eos % (Auto) (2-4) % Baso % (Auto) (0-2) % Neut # (Auto) (3852-1496) /uL Lymph # (Auto) (7637-9675) /uL [place] # (Auto) (0-900) /uL Eos # (Auto) (0-450) /uL Baso # (Auto) (0-100) /uL PT (10.1-12.7) SECONDS INR (0.9-1.3) APTT (26.4-36.2) SECONDS Sodium (137-145) mmol/L Potassium (3.4-5.1) mmol/L Chloride (98-107) mmol/L Carbon Dioxide (22-32) mmol/L BUN (9-20) mg/dL Creatinine (0.66-1.25) mg/dL Estimated GFR (>60) mL/min BUN/Creatinine Ratio (6-22) Glucose (80-110) mg/dL Lactate 2.0 (0.7-2.1) mmol/L Calcium (8.4-10.2) mg/dL Urine Color Yellow Urine Appearance Cloudy Urine pH 7.0 (4.5-8.0) Ur Specific [place] 1.015 (1.000-1.035) Urine Protein 2+ H (Negative) Urine Glucose (UA) Negative (Negative) g/dL Urine Ketones Negative (NEGATIVE) Urine Occult Blood 3+ H (Negative) Urine Nitrate Positive (Negative) Urine Bilirubin Negative (NEGATIVE) Urine Urobilinogen 0.2 (0.2) E.U./dL Ur Leukocyte Esterase 3+ H (NEGATIVE) Urine RBC 10-30/hpf H (0-5/HPF) Urine WBC 30-100/hpf H (0-5/HPF) Urine Bacteria Many (>30) H (None) Ur Culture Indicated? Specimen cultured MDM Narrative Medical decision making narrative: Patient arrived afebrile however he had received Tylenol approximately 1 hour prior to arrival. During his stay here in the ER he did develop a fever. His creatinine was unremarkable his GFR was greater than 60 so he was given ibuprofen. Patient's urinalysis is concerning for urinary tract infection. Review of his prior urine culture shows a pansensitive E coli. He was given Rocephin. Arrived tachycardic however his heart rate improved. Systolic blood pressures were in the high 90s. He was given fluids however I felt that given his clinical presentation and his blood pressure and his age that we should hold on the 30 cc/kilos. There is no other indication another infection so a chest x-ray was not ordered. He did have blood cultures obtained. The urine was cultured again. Discussed the case with ALEXANDRIA Proctor who will admit the patient for further evaluation and treatment. Discuss the admission with the patient and his who expressed understanding and agreement. Discharge Plan Departure Patient Disposition: Admitted As Inpatient Clinical Impression: Urinary tract infection Qualifiers: Urinary tract infection type: site unspecified Hematuria presence: without hematuria Qualified Code(s): N39.0 - Urinary tract infection, site not specified Altered mental status Qualifiers: Altered mental status type: unspecified Qualified Code(s): R41.82 - Altered mental status, unspecified Admit Date/Time: 08/09/18 05:47 Admit Provider: Norris Proctor
[2018-08-09] MEDS: SODIUM CHLORIDE 0.9% 1,000 ML 125 ML IV (05:20)
[2018-08-09 05:23] LABS: Add Manual Diff / Slide Review NO; Basophils Absolute Auto 0 /uL (0-100); Basophils Percent Auto 0.2 % (0-2); Eosinophils Absolute Auto 100 /uL (0-450); Eosinophils Percent Auto 0.8 % (2-4); Hemoglobin 12.4 g/dL (13.5-17.5); Lymphocytes Absolute Auto 400 /uL (1100-4500); Lymphocytes Percent Auto 4.8 % (25-40); Mean Corpuscular HGB Conc 34.4 % (30-36); Mean Corpuscular Hemoglobin 29.6 PG (26-34); Monocytes Absolute Auto 0 /uL (0-900); Monocytes Percent Auto 0.3 % (3-14); Neutrophils Absolute Auto 7000 /uL (1500-7000); Neutrophils Percent Auto 93.9 % (50-75); Platelet Count 187 X10^3/uL (150-400); Red Blood Cell Count 4.19 X10^6/uL (4.5-5.9); White Blood Cell Count 7.5 X10^3/uL (4.5-11.0)
[2018-08-09 05:26] LABS: INR 1.5 (0.9-1.3); Prothrombin Time 17.3 SECONDS (10.1-12.7)
[2018-08-09 05:29] LABS: PTT Partial Thromboplastin Tim 28 SECONDS (26.4-36.2)
[2018-08-09 05:29] LABS: Appearance Urine UA CLOUDY; Bilirubin Urine UA NEGATIVE (NEGATIVE); Color Urine UA YELLOW; Glucose Urine UA NEGATIVE (Negative); Ketones Urine UA NEGATIVE (NEGATIVE); Leukocyte Esterase Urine UA 3+ (NEGATIVE); Nitrite Urine UA POSITIVE (Negative); Occult Blood Urine UA 3+ (Negative); Protein Urine UA 2+ (Negative); Specific Gravity Urine UA 1.015 (1.000-1.035); Urobilinogen Urine UA 0.2 E.U./dL (0.2)
[2018-08-09 05:44] LABS: BUN Creatinine Ratio 20.9 (6-22); Blood Urea Nitrogen 23 mg/dL (9-20); Calcium 8.8 mg/dL (8.4-10.2); Carbon Dioxide 25 mmol/L (22-32); Chloride 92 mmol/L (98-107); Estimated Glomerular Filt Rate > 60.0 mL/min (>60); Glucose 106 mg/dL (80-110); HEMOLYSIS 26 (0-50); Potassium 4.6 mmol/L (3.4-5.1); Sodium 128 mmol/L (137-145)
[2018-08-09 05:45] LABS: Bacteria Urine Many (>30); Culture Indicated Urine Specimen Cultured; RBC Urine 10-30/HPF (0-5/HPF); WBC Urine 30-100/HPF (0-5/HPF)
[2018-08-09] MEDS: CEFTRIAXONE 1 GM/50 ML FROZ.PIGGY IV ×2 (05:46→06:19)
[2018-08-09] MEDS: IBUPROFEN 400 MG TABLET PO (05:52)
[2018-08-09 05:59] LABS: Procalcitonin 0.67 ng/mL (<0.5)
--- NOTE | 2018-08-09 06:28 | PC.NURSE ---
Admitting PUMP RUNNER Hitesh asked for 2 gm Rocephin IV instead of one. Additional 1 gm Rocephin hung per order.
--- NOTE | 2018-08-09 06:37 | P.HP_ITS ---
History of Present Illness Date Patient Seen: 08/09/18 Time Patient Seen: 06:00 Chief complaint: Has shakes, possible fever, not walking well wobbl Narrative: Francisco J Albarran is an 82-year-old male history significant for bladder cancer status post ileocecal conduit with urostomy, prostate cancer, thyroid cancer status post thyroidectomy, hypothyroidism, nephrolithiasis, coronary artery disease, hypertension, vertigo, peripheral neuropathy and long-term anticoagulation who presents to the ER for complaints of confusion fevers and rigors. The patient's symptoms began last evening the patient began complaining of a fever however felt better after taking Tylenol and drinking several glasses of water. The patient then woke at approximately 4:00 a.m. this morning with chills and fever and his noticed that he was more confused and weak. The patient reports no recent complaints of cold or flu symptoms has had no other complaints of headache or visual changes. He has a history of vertigo and reports orthostatic dizziness. He denies complaints of chest pain or palpitations has had no complaints of shortness of breath cough or wheeze. He denies abdominal pain, nausea, vomiting or diarrhea. 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 He has a history right hip fracture site that was surgically repaired in October of last year and sustained no falls. In the ER the patient was found to have a low-grade temperature at 99? upon arr ival however he had received Tylenol at home prior to arrival and subsequently developed temperature of 103. Is tachycardic at 1:01 a.m. and tachypneic at 26. He had a blood pressure of 124/62 and was 95% on air. On laboratory analysis his urine is positive for 3+ leukocyte esterase, white blood cells and blood and many bacteria. His white blood cell count is 7.5 with left shift of 94% neutrophils and has platelet count of 187. On chemistry is hyponatremic 128 with a potassium of 4.6. His BUN is 23 with creatinine 1.1 and a glucose of 106. His lactate is 2 0.0 and procalcitonin is 0.67. He is taking Xarelto ever has a PT elevated at 17.3 and INR 1.5. In the ER the patient has received 1 g of Rocephin with request for a 2nd g to be given. Patient History Medical History Bladder cancer (Acute) Coronary artery disease (Acute) Hypertension (Acute) Hyponatremia (Acute) Hypothyroid (Acute) Kidney stones (Acute) Prostate cancer (Acute) Thyroid cancer (Acute) Surgical History H/O colectomy (Acute) H/O thyroidectomy (Acute) History of appendectomy (Acute) History of urostomy (Acute) Family History Father Alcoholism Mother Alcoholism Social History household members: spouse Smoking Status: Former smoker alcohol intake: former substance use type: does not use Family & Social History Family History Father Alcoholism Mother Alcoholism Social History: household members spouse Safety & Behavioral: Feels Safe in Current Yes Environment Been Physically Hurt or No Threatened By a Person Tobacco & Substance use: Smoking Status Former smoker alcohol intake former alcohol intake frequency other Substance Use Type does not use Comment: The patient lives in a single family home with his Yael. His parents are both related to alcoholism. Smoking: The patient is a former smoker Alcohol: The patient no longer consumes alcohol Substance use: The patient denies recreation pharmaceuticals or herbal or cannabis products. Advanced directives the patient requests to be a FULL CODE. He designates his Yael to be a surrogate decision maker Meds Home Medications Medication Instructions Recorded Confirmed Type aspirin 1 tab PO DAILY 11/07/17 08/09/18 History atorvastatin 1 tab PO DAILY 11/07/17 08/09/18 History docusate calcium 1 cap PO QPM 11/07/17 08/09/18 History losartan 1 tab PO DAILY 11/07/17 08/09/18 History pregabalin 1 cap PO TID 11/07/17 08/09/18 History amlodipine 1 tab PO DAILY 06/11/18 08/09/18 History apixaban 1 tab PO BID 06/11/18 08/09/18 History diphenhydramine-acetaminophen 1 tab PO BEDTIME PRN 06/11/18 08/09/18 History [Acetaminophen PM] docusate sodium 100 mg PO BID 06/11/18 08/09/18 History meclizine 25 mg PO TID PRN 06/11/18 08/09/18 History metoprolol succinate 1 tab PO DAILY 06/11/18 08/09/18 History sennosides [senna] 8.6 mg PO BID 06/11/18 08/09/18 History hydrochlorothiazide 12.5 mg PO DAILY 08/09/18 08/09/18 History Allergies Allergy/AdvReac Type Severity Reaction Status Date / Time No Known Drug Allergies Allergy Verified 11/07/17 20:47 Review of Systems Review of Systems All systems reviewed & are unremarkable except as noted in HPI and below Exam Vital Signs (past 8 hours): - 08/09/18 04:48 08/09/18 05:00 08/09/18 05:27 Temperature 99.0 F 103.0 F H Pulse Rate 101 H 100 H Respiratory Rate 26 H 22 Blood Pressure 124/62 Blood Pressure [Right Arm] 114/53 L Pulse Oximetry 95 93 08/09/18 05:30 08/09/18 05:51 08/09/18 06:01 Temperature Pulse Rate 92 H 87 85 Respiratory Rate 22 26 H Blood Pressure Blood Pressure [Right Arm] 99/53 L 104/76 Pulse Oximetry 94 94 Oxygen Delivery Method Room Air Narrative Exam Narrative: GENERAL APPEARANCE: well developed, well nourished, in no acute distress. HEAD: Normocephalic, atraumatic, no scalp lesions. EYES: Wears glasses, pupils equal, round, reactive to light and accommodation, sclera non-icteric, extraocular movement intact, no nystagmus. EARS: normal external structures, no ear pain NOSE: sinuses non tender to percussion, no rhinorrhea. ORAL CAVITY: Oral mucosa dry, without lesions or exudate, palate normal, tongue in midline. THROAT: normal, no erythema, no exudate, pharynx normal, uvula midline. NECK/THYROID: neck supple, no jugular venous distention, no carotid bruit, no thyromegaly, trachea midline. LYMPH NODES: no cervical or supraclavicular lymphadenopathy. SKIN: warm and dry, no suspicious lesions, no rashes, good turgor. HEART: regular rate and rhythm, S1-S2 without murmur, no rubs or gallops, brisk capillary refill, 1+ bilateral edema LUNGS: clear to auscultation bilaterally, no coarseness crackles or wheezing, no cough present CHEST: Symmetrical movement, no accessory muscle use, no pain to AP and lateral compression. ABDOMEN: Soft, no distention, no epigastric or abdominal tenderness on palpation, no guarding or peritoneal signs, urostomy alida is pink with o peristoma redness or tenderness, no flank or suprapubic tenderness, active bowel tones. BACK: Normal curvature, nontender to palpation, no CVA tenderness on percussion. EXTREMITIES: moves all extremities, strength is 5/5 and symmetrical, well perfused. NEUROLOGIC: AAO to person, place and time, no focal neurologic deficits, cranial nerves II-XII grossly intact , motor strength normal upper and lower extremities, sensory exam intact to light touch. PSYCH: alert, cognitive function intact, good eye contact, stable mood with congruent affect Objective Labs Result Diagrams: 08/09/18 05:05 08/09/18 05:05 Labs: Laboratory Results - last 24 hr 08/09/18 08/09/18 08/09/18 05:05 05:05 05:05 WBC 7.5 RBC 4.19 L Hgb 12.4 L Hct 36.0 L MCV 86.0 MCH 29.6 MCHC 34.4 RDW 14.0 Plt Count 187 Neut % (Auto) 93.9 H Lymph % (Auto) 4.8 L [place] % (Auto) 0.3 L Eos % (Auto) 0.8 L Baso % (Auto) 0.2 Neut # (Auto) 7000 Lymph # (Auto) 400 L [place] # (Auto) 0 Eos # (Auto) 100 Baso # (Auto) 0 PT 17.3 H INR 1.5 H APTT 28 D Sodium Potassium Chloride Carbon Dioxide BUN Creatinine Estimated GFR BUN/Creatinine Ratio Glucose Lactate Calcium Procalcitonin 0.67 H Urine Color Urine Appearance Urine pH Ur Specific [place] Urine Protein Urine Glucose (UA) Urine Ketones Urine Occult Blood Urine Nitrate Urine Bilirubin Urine Urobilinogen Ur Leukocyte Esterase Urine RBC Urine WBC Urine Bacteria Ur Culture Indicated? 08/09/18 08/09/18 08/09/18 05:05 05:05 05:09 WBC RBC Hgb Hct MCV MCH MCHC RDW Plt Count Neut % (Auto) Lymph % (Auto) [place] % (Auto) Eos % (Auto) Baso % (Auto) Neut # (Auto) Lymph # (Auto) [place] # (Auto) Eos # (Auto) Baso # (Auto) PT INR APTT Sodium 128 L Potassium 4.6 Chloride 92 L Carbon Dioxide 25 BUN 23 H Creatinine 1.10 Estimated GFR > 60.0 BUN/Creatinine Ratio 20.9 Glucose 106 Lactate 2.0 Calcium 8.8 Procalcitonin Urine Color Yellow Urine Appearance Cloudy Urine pH 7.0 Ur Specific [place] 1.015 Urine Protein 2+ H Urine Glucose (UA) Negative Urine Ketones Negative Urine Occult Blood 3+ H Urine Nitrate Positive Urine Bilirubin Negative Urine Urobilinogen 0.2 Ur Leukocyte Esterase 3+ H Urine RBC 10-30/hpf H Urine WBC 30-100/hpf H Urine Bacteria Many (>30) H Ur Culture Indicated? Specimen cultured Assessment & Plan Assessment & Plan narrative: 1. Acute sepsis, present on admission -patient with complaints of fevers and chills, encephalopathy -sepsis criteria met: Temperature 103?, tachypneic at 26, tachycardic at 101. Blood pressure is normotensive most recently 104/76, lactate 2.0, procalcitonin 0.67 -Patient receiving IV fluid bolus in the emergency department, blood cultures have been drawn, receiving Rocephin 2 g IV 2. Pyelonephritis, present on admission, acute -Patient has surgically absent status post ileal conduit with urostomy and presented with fevers and chills and was found to be septic as above. -urinalysis positive for leukocyte esterase, WBCs, blood and many bacteria, Procalcitonin elevated at 0.67. BUN and creatinine are 23 and 1.1 respectively. -Recurrent urinary infections, will obtain an abdominal CT. -will continue IV fluid at 150 cc/hour -Supportive care, analgesics and antiemetics. -Continue supplemental oxygen to keep SpO2 > 92% -Continue to monitor closely on telemetry. -Continue strict I&Os as patient has high volume output. 3. Acute metabolic encephalopathy, present on admission. -secondary to sepsis, improved with hydration 4. Essential hypertension, chronic, present on admission. -lowest obtained blood pressure is 99/53, MAP remains greater than 65. -continue metoprolol, hold hydrochlorothiazide, amlodipine and losartan when appropriate 5. Acute generalized weakness, present on admission. Acute. -Multifactorial secondary to underlying infection, hypermetabolic state and hyponatremia. Treat underlying pathology. -Ordered physical and occupational therapy evaluation and treatment, re: generalized weakness 7. Long-term anticoagulation with Eliquis, present on admission. Chronic. -unclear rationale for anticoagulation, not clarified on prior admission. -no evidence of untoward bleeding or bruising. -Continue Eliquis 5 mg twice daily. 8. CAD status post VA, present on admission. Chronic. -Patient has no chest pain, palpitations or shortness of breath -Continue aspirin 81 mg daily, atorvastatin 40 mg daily at bedtime, and Eliquis 5 mg twice daily. 9. 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 -Patient previously had thyroid cancer status post thyroidectomy. -patient is currently taking levothyroxine 100 mcg daily -patient found to be hypothyroid on prior admission, will recheck TSH. 10. Normocytic normochromic anemia, present on admission. Chronic. -Likely anemia of chronic disease. -current hemoglobin and hematocrit are 12.4 and 36.0 consistent with prior admission -No overt signs of bleeding. -Continue to monitor hemoglobin and hematocrit closely. 11. Peripheral neuropathy, present on admission. Chronic. -Continue home Lyrica 150 mg 3 times daily. The patient will be admitted to the hospital related to severity of his symptoms and risk for potential complications. He will be admitted as an inpatient with expected length of stay expected be greater than 2 midnights. Time Spent With Patient Time with patient: 15-24 minutes Scores GCS Tish coma scale eye opening: Spontaneous Tish coma scale verbal response: Orientated Tish coma scale motor response: Obey commands Tish coma scale total score: 15
[2018-08-09] MEDS: ACETAMINOPHEN 325 MG TABLET 650 MG PO (07:54)
--- NOTE | 2018-08-09 08:15 | DI.CT.S_ITS ---
PROCEDURE: CT ABDOMEN PELVIS W CON INDICATIONS: s/p ileal conduit with urostomy, recurrent infections TECHNIQUE: After the administration of oral and intravenous contrast, 5 mm thick sections acquired from the diaphragms to the symphysis. 5 mm thick coronal and sagittal reformats were performed. For radiation dose reduction, the following was used: automated exposure control, adjustment of mA and/or kV according to patient size. COMPARISON: [facility], CT, ABDOMEN/PELVIS WITH CONTRAST, 09/11/2015, 19:29. FINDINGS: Image quality: Excellent. ABDOMEN: Lung bases: Lung bases are clear. Heart size is normal. Solid organs: Liver is normal in size and enhancement. Gallbladder appears normal in terms of wall thickness but there are multiple small calcified gallstones layering dependently within the gallbladder lumen. Biliary system is non-dilated. Pancreas enhances normally. Spleen is normal in size and enhancement. No adrenal nodules. Kidneys are normal in size and enhancement, without hydronephrosis. Note is made of contrast excreted into the collecting system of each kidney, to the degree that accurate assessment for presence or absence of small stones is limited. Peritoneum and bowel: Stomach, small bowel, and colon loops are normal in caliber and wall thickness. No free fluid or air. Nodes and vessels: No retroperitoneal or mesenteric adenopathy. Aorta and inferior vena cava are normal in caliber. Miscellaneous: No ventral hernias. Surgical enteric clips seen along what appears to be a staple line right upper quadrant, likely representing sequela of partial right colectomy. PELVIS: Genitourinary: Bladder appears absent, right lower quadrant reported ileal loop conduit urinary diversion.. Miscellaneous: No inguinal hernias or adenopathy. Bones: No suspicious bony lesions. No vertebral body compression fractures. IMPRESSION: Source of recurrent urinary tract infections not found. Retention of urine within the reported ileal loop conduit/urinary diversion at the right lower quadrant is not seen. No urinary tract stones are found. The study however does demonstrate excretion of injected intravenous contrast into the collecting system of each kidney to the degree that accurate detection of isodense urinary tract stones is limited. Multiple small gallstones layering dependently within the gallbladder lumen without evidence of biliary obstruction or acute cholecystitis. Prior partial right colectomy. Dictated by: Hitesh Terrell M.D. on 08/09/2018 at 10:36 Approved by: iHtesh Terrell M.D. on 08/09/2018 at 10:45
[2018-08-09] MEDS: ATORVASTATIN 20 MG TABLET 40 MG PO (10:08)
[2018-08-09] MEDS: ASPIRIN EC 81 MG TABLET PO (10:08)
[2018-08-09] MEDS: APIXABAN 5 MG TABLET PO ×2 (10:08→20:07)
[2018-08-09] MEDS: DOCUSATE 100 MG CAPSULE PO ×2 (10:09→20:07)
[2018-08-09] MEDS: SENNOSIDES 8.6 MG TABLET PO ×2 (10:09→20:07)
[2018-08-09] MEDS: PREGABALIN 75 MG CAPSULE 150 MG PO ×2 (10:24→20:08)
--- NOTE | 2018-08-09 11:01 | PC.NURSE ---
[employer] Blood Pressure on left wrist sitting 67/43 heart rate of 75 right arm sitting 63/36 heart rate 73 left arm supine 64/39 heart rate 76 patients nurse is notified
--- NOTE | 2018-08-09 11:19 | PC.NURSE ---
Day shift: Pt's BP low. This RRN informed by BUSINESS TECHNOLOGY PROFESSOR. Took BP 4 times and BP's in the 70's over 40's and lower. Dr Hodge informed and she ordered 1000ml one time bolus. Entered by this development writer as VTO. Pt asymptomatic and laying supine in room chair with feet elevated. Will continue to monitor.
[2018-08-09] MEDS: SODIUM CHLORIDE 0.9% 1,000 ML 1000 ML IV (11:23)
[2018-08-09] MEDS: SODIUM CHLORIDE 0.9% 1,000 ML 150 ML IV (12:06)
--- NOTE | 2018-08-09 12:49 | PT.IIE ---
Current Diagnoses Sepsis, unspecified organism (08/09/18) Surgical History (Last Reviewed 08/09/18 @ 06:38 by SERGIO Saucedo) H/O colectomy (Acute) H/O thyroidectomy (Acute) History of appendectomy (Acute) History of urostomy (Acute) Medical History (Last Reviewed 08/09/18 @ 06:38 by SERGIO Saucedo) Bladder cancer (Acute) Coronary artery disease (Acute) Hypertension (Acute) Hyponatremia (Acute) Hypothyroid (Acute) Kidney stones (Acute) Prostate cancer (Acute) Thyroid cancer (Acute) Physical Therapy Inpatient Evaluation/Re-Eval M1 PT/OT-IP Prior Functional Status Start: 08/09/18 12:05 Freq: NEEDED Status: Active Protocol: Document 08/09/18 10:05 (Rec: 08/09/18 12:49 [id number]) Medical Review Prior Functional Status Medical History Reviewed Yes Communication Pt tends to be get SOB easily and communicate with short sentences. No other deficits noted and able to make needs known Mobility and Gait Pt is an independent ambulator at home and community: Does not need AD at home but uses support from wall or counter sometimes for mobility; SPC/ FWW for community. Pt was here in in June due to weakness but he was able to return to baseline for mobility after d.c. Pt states he is able to amb for a block without break. Activities of Daily Living and IADL's independent for ADLs and IADLs . Able to some chores at home to assist . Social History Household Members spouse Living Arrangements Mobile home Number of Floors (Floors) One Floor Number of Stairs To Enter/Railing? 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 Pt was in due to weakness during June but he was able to recover and back to baseline regarding mobility after d/c . Pt acquired adjustable bed after d/c which helped him getting in/out bed . Pt and his states he often has these episodes which he gets weaker suddenly. Pt also has chronic vertigo and balance problem that he has decreased balance without using AD. Pt used to attend outpatient PT at [facility] before june for strengthening but not that helpful to his balance issues. M2 PT-IP Current Condition Start: 08/09/18 12:05 Freq: NEEDED Status: Active Protocol: Document 08/09/18 10:05 (Rec: 08/09/18 12:49 [id number]) Physical Therapy Current Condition Current Condition Evaluation Date 08/09/18 Treatment Diagnosis Sepsis, Pyelonephritis, ONEL, impaired gait and activity tolerance Onset Date 08/09/18 Weight Bearing Status Weight Bearing Status Weight Bear as Tolerated M3 PT-IP Subjective Start: 08/09/18 12:05 Freq: NEEDED Status: Active Protocol: Document 08/09/18 10:05 (Rec: 08/09/18 12:49 [id number]) Subjective Physical Therapy Visit Type Type Initial Evaluation Visit Start Time 10:05 Visit Stop Time 10:40 Total Visit Minutes 35 Number of FIELD 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 SALES 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 Visits 0 Physical Therapy Visit Comments Patient Comments Pt is agreeable to mobilize with PT Patient Goals To return home with his Therapy Pain Assessment Pain Present Pain Present Denied Pain M4 PT-IP Mobility and Gait Start: 08/09/18 12:05 Freq: NEEDED Status: Active Protocol: Document 08/09/18 10:05 (Rec: 08/09/18 12:49 [id number]) PT-Bed Mobility Assessment Rolling Type of Rolling Roll to Right Level of Assist Minimal Assistance 1 Person Assistance Supine to Sit Supine to Sit Minimal Assistance 1 Person Assistance Scooting Scooting to Edge of Bed Contact Guard Assistance Scooting Up and Down in Bed Contact Guard Assistance PT-Transfer Assessment Sit to and From Stand Sit to and from Stand Contact Guard Assistance Use of Upper Extremities Equipment Transfer Assistive Device Gait Belt Front Wheeled Walker Orthotic/Prosthetic Devices or Brace: No Transfers Transfer Destination Bed Chair Toilet Transfer Technique Stand Step Pivot Transfer Ability Level of Assist Contact Guard Assistance Use of Upper Extremities Comments Mobility Comments Pt was in bed upon assessment. Needed min A with UE for supine to sit. Pt tends to have slight retropulsion possibly due to prolonged bed bound since admission. He was then able to scoot/ sit to stand from bed/chair with CGA and FWW. Gait Assessment Gait Gait Assistance Required: Standby Assistance Distance (Feet) 150 Able to Maintain Weight Bearing Status Yes During Gait Assistive Devices Assistive Device Gait Belt Front Wheeled Walker Orthotic/Prosthetic Devices or Brace: No Gait Deviations General Gait Pattern Decreased Stride Length Decreased Feet Clearance Flexed Trunk Factors Limiting Gait Function Factors Limiting Gait Function Decreased Activity Tolerance Decreased Strength Poor Balance Poor Safety Awareness Respiratory Distress Comments Gait Comments Pt amb from EOB to bathroom and to hallway for a total of 150 feet. Pt was steady and signs of LOB but did have SOB. However, pt's O2 Sat decreased with mobility ( ranged from 84% to 92% without O2 therapy) Required constant cues to facilitate deep breathing to improve oxygen sat. Stair Climbing Assessment Evaluation Level of Assist On Stairs Standby Assistance Devices Stair Climbing Assistive Devices Left Railing Right Railing Technique/Endurance Stair Climbing Direction Ascend and Descend Stair Climbing Technique Step Over Step Number of Steps Climbed 3 Query Text: Stair Climbing Set # Repetitions (reps) 2 Comments Stair Climbing Comments Pt L foot tripped on the 3rd step once but did not LOB. PT-Balance Assessment Sitting Balance and Reactions Static Sitting Balance Ability Normal Dynamic Sitting Balance Ability Normal Standing Balance and Reactions Static Standing Balance Ability Good Dynamic Standing Balance Ability Good Device Used FWW M5 PT-IP Objective Assessments Start: 08/09/18 12:05 Freq: NEEDED Status: Active Protocol: Document 08/09/18 10:05 (Rec: 08/09/18 12:49 [id number]) Orientation Orientation/Cognition Level of Alertness Alert Orientation Name Age Birthday Month Date Year Day of Week Place Situation Language Function Ability No Deficits Noted Safety Awareness Understands Safety Issues Memory Description No Deficits Noted Gross Range of Motion Upper Extremity ROM Assessment Within Functional Limits Lower Extremity ROM Assessment Within Functional Limits Strength Upper Extremity Strength Assessment Within Functional Limits Lower Extremity Strength Assessment Within Functional Limits Coordination Assessment Gross Coordination Gross Coordination WNL Assessment Finger to Nose Test Normal Performance Pronation/Supination Test Normal Performance Sensation Assessment Sensation Gross Sensation WNL Light Touch Intact Proprioception (Position) Intact Muscle Tone Muscle Tone WNL Yes M6 PT-IP Treatment Start: 08/09/18 12:05 Freq: NEEDED Status: Active Protocol: Document 08/09/18 10:05 (Rec: 08/09/18 12:49 [id number]) Physical Therapy Treatment Education Education Provided Safety M7 PT-IP Assessment and Plan Start: 08/09/18 12:05 Freq: NEEDED Status: Active Protocol: Document 08/09/18 10:05 (Rec: 08/09/18 12:49 [id number]) PT Summary Assessment and Plan Potential Rehabilitation Potential Excellent Status of Condition at Evaluation Stable Summary Impairments Strength Balance Bed Mobility Transfers Gait Activity Tolerance Assessment Summary Pt is a low complexity with overall min A for bed mobility , SBA/CGA for transfers and ambulation. However, his activity tolerance and O2 saturation are poor whos O2 sat fluctuated from 84% to 92% during mobility, along with noticeable SOB at rest/during activity. Pt was able to recover to >95% within one minute rest but his BP maintain at 90s/50s and symptomatic during session today. Pt might need O2 therapy if d/c to home and he will be benefit from home health therapy to cont improve mobility and his balance. Goals Bed Mobility Goal Independent Transfer Goal Independent Front Wheeled Walker Gait Goal Independent Front Wheel Walker Gait Distance 200 Other Goals amb with LRAD Days to Meet Goals 5 Frequency of Treatment Frequency Of Treatment Once a Day Treatment Plan Physical Therapy Treatment Plan Bed Mobility Training Transfer Training Gait Training Therapeutic Exercise Balance Retraining Discharge Planning Neuromuscular Re-ed Other Recommendations and Next Treatment cont assess VSS, monitor O2 Focus status during mobility bed mob, transfer and gait training as fatemeh with LRAD Recommendations To Nursing Amount of Assist Needed Standby Assistance Discharge Recommendations PT Discharge Recommendations Home with Assistance Home Health Other Discharge Recommendations Pt might need O2 therapy if d/ c to home and he will be benefit from home health therapy to cont improve mobility and his balance. Equipment Needed for Home Before Pt might need O2 therapy if d/ Discharge c to home and he will be benefit from home health therapy to cont improve mobility and his balance.
--- NOTE | 2018-08-09 13:10 | CM.DANOTE ---
Addendum entered by Kellee Hess LPN 08/09/18 13:46: Met with pt as planned. Introduced self and role. Pt is found lying in bed, his had been in earlier but has gone home. Pt does say his intent is to return home at d/c. He has never had HHS, does not at this point feel this will be needed and does not intend to be homebound. Is early in stay....will check in again prn and be following. Original Note: Discharge Planning/Care Management: DCP: assessment: case received, EMR reviewed. Discussed case in Team Rounds. Therapy team rep at meeting confirmed PT and OT were ordered. Pt is an 82 year old male who admitted early this mornin to care of hospitalist team. Had 2 admissions to in June/2018: see template info below. Dr. Suh confirms that pt is being treated for acute pyelonephritis. Has urostomy in place and also struggles with ongoing SOB. PT notes he can walk about a block at baseline without having to rest. P: see pt to continue the assessment process. Pt may benefit from HHS if he is going to be homebound...will discuss in Rounds tomorrow and with pt prn. CM Discharge Assessment Start: 08/09/18 13:07 Freq: Status: Active Protocol: Document 08/09/18 13:08 ITV (Rec: 08/09/18 13:10 [email or web address] [id number]) Discharge Planning Assessment Advance Directives? No Advance Directives on File No History Provided By Medical Record Has Patient been admitted in last 30 Yes days? Comment Recent admissions: 06/11-06/13/18: home at d/c 07/03-07/08: home at d/c. Prior Living Arrangements Mobile home Household Members spouse Is patient alert and oriented? Yes DME Already Rented / Owned FWW / Walker Cane If patient plan is home with home health Possible HH with Signature : Has signed face to face form been completed? Review Status In Process Next Review Type Continued Stay Review
--- NOTE | 2018-08-09 14:00 | OT.IP.EVAL ---
Current Diagnoses Sepsis, unspecified organism (08/09/18) Past Medical History (Last Reviewed 08/09/18 @ 06:38 by SERGIO Saucedo) Bladder cancer (Acute) Coronary artery disease (Acute) Hypertension (Acute) Hyponatremia (Acute) Hypothyroid (Acute) Kidney stones (Acute) Prostate cancer (Acute) Thyroid cancer (Acute) Surgical History (Last Reviewed 08/09/18 @ 06:38 by SERGIO Saucedo) H/O colectomy (Acute) H/O thyroidectomy (Acute) History of appendectomy (Acute) History of urostomy (Acute) Occupational Therapy Inpatient Evaluation/Re-Eval M1 PT/OT-IP Prior Functional Status Start: 08/09/18 12:05 Freq: NEEDED Status: Active Protocol: Document 08/09/18 10:05 (Rec: 08/09/18 12:49 [id number]) Medical Review Prior Functional Status Medical History Reviewed Yes Communication Pt tends to be get SOB easily and communicate with short sentences. No other deficits noted and able to make needs known Mobility and Gait Pt is an independent ambulator at home and community: Does not need AD at home but uses support from wall or counter sometimes for mobility; SPC/ FWW for community. Pt was here in in June due to weakness but he was able to return to baseline for mobility after d.c. Pt states he is able to amb for a block without break. Activities of Daily Living and IADL's independent for ADLs and IADLs . Able to some chores at home to assist . Social History Household Members spouse Living Arrangements Mobile home Number of Floors (Floors) One Floor Number of Stairs To Enter/Railing? 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 Pt was in due to weakness during June but he was able to recover and back to baseline regarding mobility after d/c . Pt acquired adjustable bed after d/c which helped him getting in/out bed . Pt and his states he often has these episodes which he gets weaker suddenly. Pt also has chronic vertigo and balance problem that he has decreased balance without using AD. Pt used to attend outpatient PT at [facility] before june for strengthening but not that helpful to his balance issues. M1 PT/OT-IP Prior Functional Status Start: 08/09/18 13:38 Freq: NEEDED Status: Active Protocol: Document 08/09/18 13:41 [facility] (Rec: 08/09/18 14:00 [facility] [id number]) Medical Review Prior Functional Status Medical History Reviewed Yes Communication Pt tends to be get SOB easily and communicate with short sentences. No other deficits noted and able to make needs known Mobility and Gait Pt is an independent ambulator at home and community: Does not need AD at home but uses support from wall or counter sometimes for mobility; SPC/ FWW for community. Pt was here in in June due to weakness but he was able to return to baseline for mobility after d.c. Pt states he is able to amb for a block without break. Activities of Daily Living and IADL's independent for ADLs and IADLs . Able to some chores at home to assist . Social History Household Members spouse Living Arrangements Mobile home Number of Floors (Floors) One Floor Number of Stairs To Enter/Railing? 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 Pt was in due to weakness during June but he was able to recover and back to baseline regarding mobility after d/c . Pt acquired adjustable bed after d/c which helped him getting in/out bed . Pt and his states he often has these episodes which he gets weaker suddenly. Pt also has chronic vertigo and balance problem that he has decreased balance without using AD. Pt used to attend outpatient PT at [facility] before june for strengthening but not that helpful to his balance issues. M2 OT-IP Current Condition Start: 08/09/18 13:38 Freq: Status: Active Protocol: Document 08/09/18 13:41 [facility] (Rec: 08/09/18 14:00 [facility] [id number]) Occupational Therapy Current Condition Current Condition Evaluation Date 08/09/18 Treatment Diagnosis Acute pyelonephritis,sepsis, UTI Diagnosis Onset Date 08/09/18 Weight Bearing Status Weight Bearing Status Weight Bear as Tolerated M3 OT- IP Subjective and Pain Start: 08/09/18 13:38 Freq: Status: Active Protocol: Document 08/09/18 13:41 [facility] (Rec: 08/09/18 14:00 [facility] [id number]) OT- Subjective Occupational Therapy Visit Type Type Initial Evaluation Visit Start Time 12:50 Visit Stop Time 13:05 Total Visit Minutes 25 Notes Pt also seen from [id number]. Occupational Therapy Visit Comments Patient Comments Pt's presetn prior to lunch and after lunch pt wanting to get back to bed. OT Pain Assessment Pain When Pain Assessed At Rest Pain Present Pain Present Denied Pain M4 OT- IP ADL's Start: 08/09/18 13:38 Freq: Status: Active Protocol: Document 08/09/18 13:41 [facility] (Rec: 08/09/18 14:00 [facility] [id number]) OT ADL-Toileting Comments OT Toileting Comments Per pt states he has been independent to take care of his urostomy bag. OT ADL-Bathing Comments OT Bathing Comments Not appropriate at this time due to low BP. M5 OT- IP IADL's Start: 08/09/18 13:38 Freq: Status: Active Protocol: Document 08/09/18 13:41 [facility] (Rec: 08/09/18 14:00 [facility] [email or web address]) OT-Instrumental Activities of Daily Living Home Safety Awareness Awareness of Need for Assistance at Home Good Awareness Medication Management Medication Management No Deficits Identified Money Management Money Management No Deficits Identified Meal Preparation Meal Preparation Comments able to assist. Plastic Surgery Manager Plastic Surgery Manager Comments able to assist. Driving Driving Comments able to assist. M6 OT- IP Functional Cognition Start: 08/09/18 13:38 Freq: Status: Active Protocol: Document 08/09/18 13:41 [facility] (Rec: 08/09/18 14:00 [facility] [id number]) Cognitive Factors Limiting Selfcare Function Cognitive Ability Level of Alertness Alert Patient Orientation Name Age Birthday Month Date Year Day of Week Place Situation Attention Span Ability Capable of Focused Attention Capable of Sustained Attention Ability to Follow Commands Able to Follow Multi-Step Commands Memory Description No Deficits Noted Safety Awareness No Deficits Noted Cognitive Comments Cognitive Assessment Comments Pt appears to be at baseline cognition. OT- Vision and Hearing OT- Hearing Assessment OT- Hearing Assessment WFL OT- Vision Assessment Visual Acuity Glasses All The Time M7 OT- IP Mobility and Balance Start: 08/09/18 13:38 Freq: Status: Active Protocol: Document 08/09/18 13:41 [facility] (Rec: 08/09/18 14:00 [facility] [email or web address]) OT- Bed Mobility Assessment Sit to Supine Sit to Supine Assist Standby Assistance Bedrails OT-Transfer Assessment Sit to and From Stand Sit to and from Stand Contact Guard Assistance 1 Person Assistance Transfers Transfer Ability Contact Guard Assistance 1 Person Assistance Technique Transfer Destination Bed Transfer Technique Stand Step Pivot Devices Transfer Assistive Devices Gait Belt Front Wheeled Walker Comments Mobility Comments Due to low BP, assisted pt back to the bed from the recliner. BP sitting 73/43 and after transfer back in bed 83/46, O2 on RA reading 87% and able to increase to 91% however reading may not be accurated due to his cold hands, nursing aware. OT- Balance Assessment Sitting Balance and Reactions Static Sitting Balance Ability Normal Standing Balance and Reactions Static Standing Balance Ability Fair M8 OT- IP Objective Assessments Start: 08/09/18 13:38 Freq: Status: Active Protocol: Document 08/09/18 13:41 [facility] (Rec: 08/09/18 14:00 [facility] [email or web address]) OT Gross Range of Motion Upper Extremity Range of Motion Assessment Within Functional Limits OT Strength Upper Extremity Strength Assessment Within Functional Limits M9 OT- IP Assessment and Plan Start: 08/09/18 13:38 Freq: Status: Active Protocol: Document 08/09/18 13:41 [facility] (Rec: 08/09/18 14:00 [facility] [id number]) OT Summary Assessment and Plan Potential Rehabilitation Potential Good Analytic Complexity at Evaluation Low Summary OT Impairments Functional Mobility Grooming Dressing Toileting Bathing Toilet Transfers Shower Transfers Progress Towards Goals Slow Progress due to Medical Issues Assessment Summary Pt low complexity and main barriers at this time low BP, a little unsteady on his feet and needing use of FWW, decreased activity tolerance, and has 4 steps at home. Pending progress, pt may benefit from home health. In addition will be able to assist pt at home. Goals Grooming Goal Independent Dressing Goal Standby Assistance Toileting Goal Standby Assistance Bathing Goal Contact Guard Assistance Toilet Transfer Goal Standby Assistance Shower Transfer Goal Standby Assistance Patient/Caregiver Education Goal Caregiver Independent Assisting Patient OT-Other Goals Grooming goal in standing. Days to Meet Goals 5 Frequency of Treatment Frequency Of Treatment Once a Day Treatment Plan OT Treatment Plan ADL Training Functional Mobility Patient/Family Education Discharge Planning Other Treatment Recommendations and Next Standing for grooming, Treatment Focus possible shower. Discharge Recommendations OT Discharge Recommendations Home with Assistance Home Health
[2018-08-09 21:25] LABS: Acinetobacter baumannii Not Detected (Not Detect); Candida albicans Not Detected (Not Detect); Candida glabrata Not Detected (Not Detect); Candida krusei Not Detected (Not Detect); Candida parapsilosis Not Detected (Not Detect); Candida tropicalis Not Detected (Not Detect); E. coli Detected (Not Detect); Enterobacter cloacae complex Not Detected (Not Detect); Enterobacteriaceae species Detected (Not Detect); Enterococcus species Not Detected (Not Detect); Haemophilus influenzae Not Detected (Not Detect); Listeria monocytogenes Not Detected (Not Detect); Neisseria meningitidis Not Detected (Not Detect); Proteus species Not Detected (Not Detect); Pseudomonas aeruginosa Not Detected (Not Detect); Serratia marcescens Not Detected (Not Detect); Staphylococcus species Not Detected (Not Detect); Streptococcus agalactiae (Gr B Not Detected (Not Detect); Streptococcus pneumonia Not Detected (Not Detect); Streptococcus pyogenes (Gr A) Not Detected (Not Detect); Streptococcus species Not Detected (Not Detect)
[2018-08-10] VITALS (22 sets, daily range): BP systolic 88–157; BP diastolic 47–113; PULSE 73–117; RESP 15–112; TEMP 36.6–39.3; O2SAT 91–98
[2018-08-10] MEDS: SODIUM CHLORIDE 0.9% 1,000 ML 150 ML IV ×2 (00:24→08:19)
--- NOTE | 2018-08-10 03:02 | PC.NURSE ---
SHIFT 11p-7a Bedside report, care assumed. Pt. is A&Ox3. Slightly hypotensive (101/57) but within goal limits (MAP>60). Pt requesting sleep aid; discussed with Kevon Proctor, but none ordered d/t hypotension. Explained to patient, verbalizes understanding. Changed neuro checks and BP checks to [id number], per Cyn Proctor.
[2018-08-10] MEDS: CEFTRIAXONE 2 GM/50 ML FROZ.PIGGY IV (05:34)
[2018-08-10] MEDS: LEVOTHYROXINE 100 MCG TABLET 200 MCG PO (05:34)
[2018-08-10 07:30] LABS: Add Manual Diff / Slide Review NO; Basophils Absolute Auto 0 /uL (0-100); Basophils Percent Auto 0.2 % (0-2); Eosinophils Absolute Auto 200 /uL (0-450); Eosinophils Percent Auto 1.6 % (2-4); Hematocrit 30.8 % (41-53); Hemoglobin 10.2 g/dL (13.5-17.5); Lymphocytes Absolute Auto 300 /uL (1100-4500); Lymphocytes Percent Auto 2.1 % (25-40); Mean Corpuscular HGB Conc 33.2 % (30-36); Mean Corpuscular Hemoglobin 28.9 PG (26-34); Monocytes Absolute Auto 300 /uL (0-900); Neutrophils Absolute Auto 13900 /uL (1500-7000); Neutrophils Percent Auto 94.1 % (50-75); Platelet Count 150 X10^3/uL (150-400); Red Blood Cell Count 3.54 X10^6/uL (4.5-5.9); Red Cell Distribution Width 13.9 % (11.6-14.8); White Blood Cell Count 14.8 X10^3/uL (4.5-11.0)
[2018-08-10 07:40] LABS: BUN Creatinine Ratio 18.2 (6-22); Blood Urea Nitrogen 20 mg/dL (9-20); Calcium 7.5 mg/dL (8.4-10.2); Carbon Dioxide 21 mmol/L (22-32); Chloride 98 mmol/L (98-107); Estimated Glomerular Filt Rate > 60.0 mL/min (>60); Glucose 87 mg/dL (80-110); HEMOLYSIS < 15 (0-50); Magnesium 1.7 mg/dL (1.6-2.3); Sodium 127 mmol/L (137-145)
[2018-08-10 07:59] LABS: Procalcitonin 19.64 ng/mL (<0.5)
[2018-08-10 08:11] LABS: TSH w/ Reflex to FT4 0.07 uIU/mL (0.47-4.68)
[2018-08-10] MEDS: ACETAMINOPHEN 325 MG TABLET 650 MG PO ×2 (08:12→12:40)
[2018-08-10] MEDS: ASPIRIN EC 81 MG TABLET PO (08:14)
[2018-08-10] MEDS: APIXABAN 5 MG TABLET PO ×2 (08:14→21:49)
[2018-08-10] MEDS: PREGABALIN 75 MG CAPSULE 150 MG PO ×3 (08:15→21:50)
[2018-08-10 08:58] LABS: Free T4, Direct Thyroxine 2.35 ng/dL (0.78-2.19)
--- NOTE | 2018-08-10 09:42 | PT.IPTN ---
Current Diagnoses Sepsis, unspecified organism (08/09/18) Physical Therapy Treatment Note M2 PT-IP Current Condition Start: 08/09/18 12:05 Freq: NEEDED Status: Active Protocol: Document 08/09/18 10:05 HH (Rec: 08/09/18 12:49 [id number]) Physical Therapy Current Condition Current Condition Evaluation Date 08/09/18 Treatment Diagnosis Sepsis, Pyelonephritis, ONEL, impaired gait and activity tolerance Onset Date 08/09/18 Weight Bearing Status Weight Bearing Status Weight Bear as Tolerated M3 PT-IP Subjective Start: 08/09/18 12:05 Freq: NEEDED Status: Active Protocol: Document 08/10/18 09:35 SA (Rec: 08/10/18 09:42 SA [id number]) Subjective Physical Therapy Visit Type Type Treatment Note Visit Start Time 08:57 Visit Stop Time 09:21 Total Visit Minutes 24 Number of MISSIONARY COORDINATOR Visits 1 Physical Therapy Visit Comments Patient Comments Pt in bed, agreeable to get up for PT. Patient Goals To return home with his Therapy Pain Assessment Pain When Pain Assessed At Rest Pain Present Pain Present Denied Pain M4 PT-IP Mobility and Gait Start: 08/09/18 12:05 Freq: NEEDED Status: Active Protocol: Document 08/10/18 09:35 SA (Rec: 08/10/18 09:42 SA [id number]) PT-Bed Mobility Assessment Rolling Type of Rolling Roll to Right Level of Assist Contact Guard Assistance Supine to Sit Supine to Sit Minimal Assistance 1 Person Assistance Sit to Supine Sit to Supine Minimal Assistance 1 Person Assistance Scooting Scooting to Edge of Bed Contact Guard Assistance Scooting Up and Down in Bed Contact Guard Assistance PT-Transfer Assessment Sit to and From Stand Sit to and from Stand Contact Guard Assistance 1 Person Assistance Equipment Transfer Assistive Device Gait Belt Front Wheeled Walker Orthotic/Prosthetic Devices or Brace: No Transfers Transfer Destination Bed Transfer Ability Level of Assist Contact Guard Assistance Use of Upper Extremities Comments Mobility Comments Min A with bed mobility and cues for technique, CGA with transfers. Pt needs cues for PLB. 02 sats on RA 85-95%, HR 127-138 BPM with activity. Gait Assessment Gait Gait Assistance Required: Contact Guard Assist 1 Person Assist Distance (Feet) 100 Able to Maintain Weight Bearing Status Yes During Gait Assistive Devices Assistive Device Gait Belt Front Wheeled Walker Orthotic/Prosthetic Devices or Brace: No Gait Deviations General Gait Pattern Decreased Stride Length Decreased Feet Clearance Flexed Trunk Factors Limiting Gait Function Factors Limiting Gait Function Decreased Activity Tolerance Decreased Strength Poor Balance Poor Safety Awareness Respiratory Distress Comments Gait Comments Pt with cues for slow, steady pace with gait and PLB. Pt denies dizziness but is somewhat unsteady with gait and standing activity. 02 sats ranged from 85-93% with gait. Pt very fatigued after walking, did not attempt stairs today. M5 PT-IP Objective Assessments Start: 08/09/18 12:05 Freq: NEEDED Status: Active Protocol: Document 08/09/18 10:05 (Rec: 08/09/18 12:49 [id number]) Orientation Orientation/Cognition Level of Alertness Alert Orientation Name Age Birthday Month Date Year Day of Week Place Situation Language Function Ability No Deficits Noted Safety Awareness Understands Safety Issues Memory Description No Deficits Noted Gross Range of Motion Upper Extremity ROM Assessment Within Functional Limits Lower Extremity ROM Assessment Within Functional Limits Strength Upper Extremity Strength Assessment Within Functional Limits Lower Extremity Strength Assessment Within Functional Limits Coordination Assessment Gross Coordination Gross Coordination WNL Assessment Finger to Nose Test Normal Performance Pronation/Supination Test Normal Performance Sensation Assessment Sensation Gross Sensation WNL Light Touch Intact Proprioception (Position) Intact Muscle Tone Muscle Tone WNL Yes M6 PT-IP Treatment Start: 08/09/18 12:05 Freq: NEEDED Status: Active Protocol: Document 08/10/18 09:35 (Rec: 08/10/18 09:42 [id number]) Physical Therapy Treatment Exercises Exercises Ankle Pumps Gluteal Sets Quad Sets Education Education Provided Safety Other Treatments Other Treatment Performed Standing postural correction and PLB. M7 PT-IP Assessment and Plan Start: 08/09/18 12:05 Freq: NEEDED Status: Active Protocol: Document 08/10/18 09:35 (Rec: 08/10/18 09:42 [id number]) PT Summary Assessment and Plan Potential Rehabilitation Potential Excellent Status of Condition at Evaluation Stable Summary Impairments Strength Balance Bed Mobility Transfers Gait Activity Tolerance Assessment Summary PT with rapid fatigue with limited activity today, cues for safety as he is somewhat impulsive. 02 sats on RA 85-95 % with activity and HR 120s- 138 BPM. Frequency of Treatment Frequency Of Treatment Once a Day Treatment Plan Physical Therapy Treatment Plan Bed Mobility Training Transfer Training Gait Training Therapeutic Exercise Balance Retraining Discharge Planning Neuromuscular Re-ed Other Recommendations and Next Treatment cont assess VSS, monitor O2 Focus status during mobility bed mob, transfer and gait training as fatemeh with LRAD Recommendations To Nursing Amount of Assist Needed Standby Assistance
[2018-08-10] MEDS: ALBUTEROL 2.5 MG/3 ML NEB (ADULT) INH (11:36)
[2018-08-10] MEDS: METOPROLOL ER 25 MG TABLET PO (12:03)
--- NOTE | 2018-08-10 14:48 | OT.IP.TRT ---
Current Diagnoses Sepsis, unspecified organism (08/09/18) Occupational Therapy Treatment Note M2 OT-IP Current Condition Start: 08/09/18 13:38 Freq: Status: Active Protocol: Document 08/09/18 13:41 [facility] (Rec: 08/09/18 14:00 [facility] [id number]) Occupational Therapy Current Condition Current Condition Evaluation Date 08/09/18 Treatment Diagnosis Acute pyelonephritis,sepsis, UTI Diagnosis Onset Date 08/09/18 Weight Bearing Status Weight Bearing Status Weight Bear as Tolerated M3 OT- IP Subjective and Pain Start: 08/09/18 13:38 Freq: Status: Active Protocol: Document 08/10/18 14:26 [facility] (Rec: 08/10/18 14:48 [facility] [id number]) OT- Subjective Occupational Therapy Visit Type Type Treatment Note Visit Start Time 13:30 Visit Stop Time 14:02 Total Visit Minutes 32 Occupational Therapy Visit Comments Patient Comments After encouragement , pt willing to get out of bed to wash up and use the toilet. Patient/Caregiver Goals Pt williing to have back up plan to go to skilled rehab prior to going home, pt's leaning towards SNF, but wants what he would like. OT Pain Assessment Pain When Pain Assessed At Rest Pain Present Pain Present Denied Pain M4 OT- IP ADL's Start: 08/09/18 13:38 Freq: Status: Active Protocol: Document 08/10/18 14:26 [facility] (Rec: 08/10/18 14:48 [facility] [id number]) OT ADL-Grooming General Evaluation Grooming Ability Standby Assistance Areas Needing Assistance Retrieving/Set-up of Grooming Items Comments OT Grooming Comments Pt able to stand for 5 minutes by sink with FWW and heavy use of left hand on the counter for balance while doing all grooming needs. OT ADL-Oral Care General Eval Oral Care Ability Independent OT ADL-Dressing General Eval Lower Body Dressing Ability Contact Guard Assistance Comments OT Dressing Comments CGA for balance while pt pulling up brief/sweats up over his hips. OT ADL-Toileting General Evaluation Toileting Ability Standby Assistance Comments OT Toileting Comments Vc for completeness to wipe. Pt able to sit and use of left hand to reach back and wipe appropriately. OT ADL-Bathing Comments OT Bathing Comments Pt states would like to try to shower tomorrow. M5 OT- IP IADL's Start: 08/09/18 13:38 Freq: Status: Active Protocol: Document 08/09/18 13:41 [facility] (Rec: 08/09/18 14:00 [facility] [id number]) OT-Instrumental Activities of Daily Living Home Safety Awareness Awareness of Need for Assistance at Home Good Awareness Medication Management Medication Management No Deficits Identified Money Management Money Management No Deficits Identified Meal Preparation Meal Preparation Comments able to assist. County Nurse County Nurse Comments able to assist. Driving Driving Comments able to assist. M6 OT- IP Functional Cognition Start: 08/09/18 13:38 Freq: Status: Active Protocol: Document 08/10/18 14:26 [facility] (Rec: 08/10/18 14:48 [facility] [id number]) Cognitive Factors Limiting Selfcare Function Cognitive Ability Level of Alertness Alert Patient Orientation Name Age Birthday Month Date Year Day of Week Place Situation Attention Span Ability Capable of Focused Attention Capable of Sustained Attention Ability to Follow Commands Able to Follow Multi-Step Commands Memory Description No Deficits Noted Safety Awareness Underestimates Need for Assistance Cognitive Comments Cognitive Assessment Comments Pt a bit impulsive at times. M7 OT- IP Mobility and Balance Start: 08/09/18 13:38 Freq: Status: Active Protocol: Document 08/10/18 14:26 [facility] (Rec: 08/10/18 14:48 [facility] [email or web address]) OT- Bed Mobility Assessment Supine to Sit Supine to Sit Assist Standby Assistance 1 Person Assistance Bedrails Sit to Supine Sit to Supine Assist Minimal Assistance Bedrails OT-Transfer Assessment Sit to and From Stand Sit to and from Stand Contact Guard Assistance 1 Person Assistance Transfers Transfer Ability Contact Guard Assistance 1 Person Assistance Technique Transfer Destination Bed Toilet Transfer Technique Stand Step Pivot Devices Transfer Assistive Devices Gait Belt Front Wheeled Walker Comments Mobility Comments BP better today 110/50 while sitting and after getting back to bed 113/70. Still needing CGA as a bit unsteady at times. Pt while sitting at edge of the bed tends to lean back into posterior tilt and has a hard time to get himself forwards. Pt needing TADEO to assist to help get legs back into bed. OT- Gait Assessment Gait Gait Assistance Required: Contact Guard Assist 1 Person Assist Distance (Feet) 15 Assistive Devices Assistive Device Gait Belt Front Wheeled Walker OT- Balance Assessment Sitting Balance and Reactions Static Sitting Balance Ability Normal Dynamic Sitting Balance Ability Fair Standing Balance and Reactions Static Standing Balance Ability Fair M8 OT- IP Objective Assessments Start: 08/09/18 13:38 Freq: Status: Active Protocol: Document 08/09/18 13:41 [facility] (Rec: 08/09/18 14:00 [facility] [email or web address]) OT Gross Range of Motion Upper Extremity Range of Motion Assessment Within Functional Limits OT Strength Upper Extremity Strength Assessment Within Functional Limits M9 OT- IP Assessment and Plan Start: 08/09/18 13:38 Freq: Status: Active Protocol: Document 08/10/18 14:26 [facility] (Rec: 08/10/18 14:48 [facility] [email or web address]) OT Summary Assessment and Plan Potential Rehabilitation Potential Good Analytic Complexity at Evaluation Low Summary OT Impairments Functional Mobility Grooming Dressing Toileting Bathing Toilet Transfers Shower Transfers Progress Towards Goals Slow Progress due to Medical Issues Slow Progress due to Activity Tolerance Assessment Summary Pt decreased activity tolerance and still a little unsteady on his feet and pt and now open to having skilled rehab be back up plan especial if still feeling weak . Pt needing CGA and use of FWW, and TADEO for bed mobility at this time. Therefore pending progress SNF versus home with home health. Goals Grooming Goal Independent Dressing Goal Standby Assistance Toileting Goal Standby Assistance Bathing Goal Contact Guard Assistance Toilet Transfer Goal Standby Assistance Shower Transfer Goal Standby Assistance Patient/Caregiver Education Goal Caregiver Independent Assisting Patient OT-Other Goals Shower Days to Meet Goals 5 Frequency of Treatment Frequency Of Treatment Once a Day Treatment Plan OT Treatment Plan ADL Training Functional Mobility Patient/Family Education Discharge Planning Discharge Recommendations OT Discharge Recommendations Home with Assistance Home Health SNF Rehab Other Discharge Recommendations Pt now open to possible SNF pending progress.
--- NOTE | 2018-08-10 15:30 | P.PN_ITS ---
Subjective Date Patient Seen: 08/10/18 Interval history: Francisco J Albarran is an 82-year-old male history significant for bladder cancer status post ileocecal conduit with urostomy, prostate cancer, thyroid cancer s tatus post thyroidectomy, hypothyroidism, nephrolithiasis, coronary artery disease, hypertension, vertigo, peripheral neuropathy and long-term anticoagulation who presents to the ED for complaints of confusion fevers and rigors. The patient is resting in bed comfortably. He reports he did not sleep well last night due to the air conditioning vent blowing on him. He continues to have slight fevers and chills periodically. He has no more confusion but is mentation is mildly delayed. He was up with physical therapy and tired quickly. He was somewhat short of breath and mildly tachycardic. He is in no pain. He denies headache, shortness of breath, chest pain, abdominal pain, nausea, vom iting, diarrhea or constipation. He is voiding and eliminating without difficulty. He is up ambulating with assistance. Exam Vital Signs (past 8 hours): - 08/10/18 07:30 08/10/18 08:12 08/10/18 09:46 Temperature 98.4 F 99.6 F 102.7 F H Pulse Rate 117 H Respiratory Rate 20 Blood Pressure 157/113 H Pulse Oximetry 91 08/10/18 09:49 08/10/18 09:50 08/10/18 10:30 Temperature 101.5 F H Pulse Rate 100 H Respiratory Rate 16 Blood Pressure 107/58 L Pulse Oximetry 98 97 93 08/10/18 11:45 08/10/18 12:30 08/10/18 12:40 Temperature 100.3 F H 101.5 F H Pulse Rate 86 101 H Respiratory Rate 18 18 Blood Pressure 116/89 Pulse Oximetry 94 91 08/10/18 13:07 08/10/18 13:11 08/10/18 14:35 Temperature 100.6 F H 97.9 F Pulse Rate 101 H 77 Respiratory Rate 18 Blood Pressure 116/89 92/47 L Pulse Oximetry 96 Oxygen Delivery Method Room Air Oxygen Flow Rate 0 Narrative Exam Narrative: General: Elderly gentleman lying in bed and in no acute distress, pale and slightly flushed well-developed, well-nourished, appropriately interactive. HEENT: Normocephalic, atraumatic. External ears without defect. Pupils equal, round, and reactive to light. Anicteric sclerae, moist conjunctivae, and no lid lag. Neck: Supple with full range of motion. No lymphadenopathy or thyromegaly. Cardiovascular: Regular rhythm and rate without murmurs, rubs, or gallops appreciated. Pulmonary: Clear to auscultation bilaterally without crackles, wheezes, or rhonchi. Normal respiratory effort with no use of accessory muscles. Abdomen: Soft, bowel sounds present, nontender, nondistended. No hepatosplenomegaly or masses appreciated. Urostomy in place and stoma appears healthy with light urine. Extremities: No clubbing, cyanosis, or edema. Skin: Normal temperature, turgor, and texture; no rash, ulcers, or subcutaneous nodules appreciated. Neurological: Cranial nerves grossly intact. Psychiatric: Normal mood and affect. Alert and oriented to person, place, and time. Objective Labs Result Diagrams: 08/10/18 06:52 08/10/18 06:52 Labs: Laboratory Results - last 24 hr 08/09/18 08/10/18 08/10/18 05:05 06:52 06:52 WBC 14.8 H D RBC 3.54 L Hgb 10.2 L Hct 30.8 L MCV 87.0 MCH 28.9 MCHC 33.2 RDW 13.9 Plt Count 150 Neut % (Auto) 94.1 H Lymph % (Auto) 2.1 L Jessamine % (Auto) 2.0 L Eos % (Auto) 1.6 L Baso % (Auto) 0.2 Neut # (Auto) 86861 H Lymph # (Auto) 300 L Jessamine # (Auto) 300 Eos # (Auto) 200 Baso # (Auto) 0 Sodium Potassium Chloride Carbon Dioxide BUN Creatinine Estimated GFR BUN/Creatinine Ratio Glucose Calcium Magnesium Procalcitonin TSH 0.07 L Free T4 2.35 H A. baumannii (PCR) Not detected Rosaura albicans (PCR) Not detected C. glabrata (PCR) Not detected C. krusei (PCR) Not detected C. parapsilosis (PCR) Not detected C. tropicalis (PCR) Not detected Enterobacteriac sp PCR Detected H E. cloacae complex PCR Not detected Enterococcus sp PCR Not detected E. coli (PCR) Detected H H. influenzae (PCR) Not detected Klebsiella oxytoca PCR Not detected Klebsiella pneumoniae Not detected List. monocytogenes PCR Not detected N. meningitidis (PCR) Not detected Proteus species (PCR) Not detected Serratia marcescens PCR Not detected Staphylococcus sp PCR Not detected Staph aureus (PCR) Not detected mecA-Methicil Res Gene Not Reportable Streptococcus sp PCR Not detected Group A Strep (PCR) Not detected Strep agalactiae (PCR) Not detected Strep pneumoniae (PCR) Not detected P. aeruginosa (PCR) Not detected Naeem/B-Vanco Res Genes Not Reportable KPC-Carbap Res Gene PCR Not Reportable 08/10/18 08/10/18 06:52 06:52 WBC RBC Hgb Hct MCV MCH MCHC RDW Plt Count Neut % (Auto) Lymph % (Auto) Jessamine % (Auto) Eos % (Auto) Baso % (Auto) Neut # (Auto) Lymph # (Auto) Jessamine # (Auto) Eos # (Auto) Baso # (Auto) Sodium 127 L Potassium 4.0 Chloride 98 Carbon Dioxide 21 L BUN 20 Creatinine 1.10 Estimated GFR > 60.0 BUN/Creatinine Ratio 18.2 Glucose 87 Calcium 7.5 L Magnesium 1.7 Procalcitonin 19.64 H TSH Free T4 A. baumannii (PCR) Rosaura albicans (PCR) C. glabrata (PCR) C. krusei (PCR) C. parapsilosis (PCR) C. tropicalis (PCR) Enterobacteriac sp PCR E. cloacae complex PCR Enterococcus sp PCR E. coli (PCR) H. influenzae (PCR) Klebsiella oxytoca PCR Klebsiella pneumoniae List. monocytogenes PCR N. meningitidis (PCR) Proteus species (PCR) Serratia marcescens PCR Staphylococcus sp PCR Staph aureus (PCR) mecA-Methicil Res Gene Streptococcus sp PCR Group A Strep (PCR) Strep agalactiae (PCR) Strep pneumoniae (PCR) P. aeruginosa (PCR) Naeem/B-Vanco Res Genes KPC-Carbap Res Gene PCR Assessment & Plan Assessment & Plan narrative: Francisco J Albarran is an 82-year-old male history significant for bladder cancer status post ileocecal conduit with urostomy, prostate cancer, thyroid cancer status post thyroidectomy, hypothyroidism, nephrolithiasis, coronary artery disease, hypertension, vertigo, peripheral neuropathy and long-term anticoagulation who presents to the ED for complaints of confusion fevers and rigors. 1. Acute sepsis, present on admission. Resolving. -Patient presented with fever, chills, rigors, and metabolic encephalopathy. -Sepsis criteria met and includes: Febrile (temperature 103?), tachypneic (respiratory rate 26), tachycardic (heart rate 101) with source urinary. Lactate 2.0 and procalcitonin 0.67. -Early goal-directed therapy met including: IV fluid hydration and broad- spectrum antibiotic. 2. Acute E coli bacteremia and UTI, present on admission. Active. -Patient has surgically absent bladder and is status post ileal conduit with urostomy and presented with fevers, chills, rigors and encephalopathy. -Initial WBC normal at 7.5 and procalcitonin 0.67. Both WBC and procalcitonin elevated and likely peaking today at 14.8 and 19.64 respectively. Continue to trend WBC and procalcitonin daily. -Due to recurrent urinary infections obtained CT abdomen and pelvis with contrast which did not demonstrate any acute intra-abdominal abnormalities and kidneys looked normal in size and texture. No stones but somewhat limited due to contrast dye. Will consider doing an abdominal KUB in the next day or to to rule out nephrolithiasis as the patient has a history of stones. -Continue IV fluid with normal saline at 100 mL/hr. -Continue supportive care with analgesics and antiemetics. -Continue supplemental oxygen to keep SpO2 > 92%. -Continue to monitor closely on telemetry. -Continue strict I&Os as patient has high volume output through ostomy. 3. Acute hypotension, secondary to sepsis, dehydration and hypovolemia, present on admission. Chronic hypertension currently inactive. -Patient's blood pressures continue to be somewhat labile and mildly hypotensive. Goal MAP 55-60. -Patient is asymptomatic. Na 127. Patient typically has high volume output through urostomy. Continue strict I&Os as above. -Continue to monitor blood pressure closely. Continue maintenance IV fluid with normal saline at 100 mL/hr and will give as needed boluses for hypotension. -Continue metoprolol succinate 25 mg daily. Held hydrochlorothiazide, amlodipin e and losartan. 4. Acute metabolic encephalopathy, present on admission. Resolved. -Secondary to sepsis and infection. Has resolved with IV fluid hydration. 5. Acute generalized weakness, present on admission. Active. -Multifactorial secondary to underlying infection, hypermetabolic state and hyponatremia. Treat underlying pathology. -Ordered physical and occupational therapy evaluation and treatment. 6. Long-term anticoagulation with Eliquis, present on admission. Chronic. -Unclear reason for anticoagulation. No history of atrial fibrillation, blood clots, PAD/PVD. May be for VTE prophylaxis in setting of multiple previous cancers now presumed to be in remission? -Continue Eliquis 5 mg twice daily. 7. CAD status post AR, present on admission. Chronic. -Patient has no chest pain, palpitations or shortness of breath. -Continue aspirin 81 mg daily, atorvastatin 40 mg daily at bedtime, and Eliquis 5 mg twice daily. 8. 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 -Patient previously had thyroid cancer status post thyroidectomy. -TSH now 0.07 for TSH suppression. For high-risk and intermediate-risk patients, the guidelines recommend TSH below 0.1 mU/L, and, for low-risk patients TSH at or slightly below the lower limit of normal (0.1?0.5 mU/L). -Continue levothyroxine 200 mcg daily and will need to be followed up by nitro man outpatient. 9. Normocytic normochromic anemia, present on admission. Chronic. -Likely anemia of chronic disease. -Hemoglobin and hematocrit stable. No overt signs of bleeding. -Continue to monitor CBC daily. 10. Peripheral neuropathy, present on admission. Chronic. -Continue home Lyrica 150 mg 3 times daily. Disposition: Likely to discharge in several days he has improved clinically with treatment of E coli bacteremia and UTI and culture and sensitivities are resulted. May need long term facility for rehabilitation for generalized weakness.
[2018-08-10] MEDS: SODIUM CHLORIDE 0.9% 1,000 ML 100 ML IV (17:20)
[2018-08-10] MEDS: ATORVASTATIN 20 MG TABLET 40 MG PO (21:50)
[2018-08-10] MEDS: SENNOSIDES 8.6 MG TABLET PO (21:50)
[2018-08-10] MEDS: MELATONIN 3 MG TABLET 6 MG PO (21:50)
[2018-08-11] VITALS (11 sets, daily range): BP systolic 109–151; BP diastolic 57–77; PULSE 70–91; RESP 16–18; TEMP 36.6–37.4; O2SAT 94–96
--- NOTE | 2018-08-11 02:01 | PC.NURSE ---
SHIFT 11p-7a Report received, care assumed. Pt. A&O. Denies pain. VSS. Pt. notes an audible wheeze in upper airway, without distress of breathing. Lung sounds clear.
[2018-08-11] MEDS: SODIUM CHLORIDE 0.9% 1,000 ML 100 ML IV (03:44)
[2018-08-11] MEDS: LEVOTHYROXINE 100 MCG TABLET 200 MCG PO (05:42)
[2018-08-11] MEDS: CEFTRIAXONE 2 GM/50 ML FROZ.PIGGY IV (05:43)
[2018-08-11 06:46] LABS: Add Manual Diff / Slide Review NO; Basophils Absolute Auto 100 /uL (0-100); Basophils Percent Auto 0.6 % (0-2); Eosinophils Absolute Auto 200 /uL (0-450); Hematocrit 28.8 % (41-53); Hemoglobin 10.1 g/dL (13.5-17.5); Lymphocytes Absolute Auto 500 /uL (1100-4500); Lymphocytes Percent Auto 4.8 % (25-40); Mean Corpuscular Volume 85.7 fL (80-100); Monocytes Absolute Auto 300 /uL (0-900); Monocytes Percent Auto 3.2 % (3-14); Neutrophils Absolute Auto 8500 /uL (1500-7000); Neutrophils Percent Auto 89.4 % (50-75); Platelet Count 149 X10^3/uL (150-400); Red Blood Cell Count 3.36 X10^6/uL (4.5-5.9); White Blood Cell Count 9.5 X10^3/uL (4.5-11.0)
[2018-08-11 06:57] LABS: Alanine Aminotransferase 30 IU/L (21-72); Albumin 2.7 g/dL (3.5-5.0); Albumin Globulin Ratio 0.9 (1.0-2.8); Alkaline Phosphatase 58 U/L (38-126); Aspartate Aminotransferase 38 IU/L (17-59); Bilirubin Total 0.3 mg/dL (0.2-1.3); Blood Urea Nitrogen 16 mg/dL (9-20); Calcium 8.2 mg/dL (8.4-10.2); Carbon Dioxide 22 mmol/L (22-32); Chloride 106 mmol/L (98-107); Estimated Glomerular Filt Rate > 60.0 mL/min (>60); Globulin 2.9 g/dL (1.7-4.1); Glucose 110 mg/dL (80-110); HEMOLYSIS < 15 (0-50); Magnesium 1.8 mg/dL (1.6-2.3); Potassium 4.1 mmol/L (3.4-5.1); Sodium 135 mmol/L (137-145); Total Protein 5.6 g/dL (6.3-8.2)
[2018-08-11 07:24] LABS: Procalcitonin 7.34 ng/mL (<0.5)
[2018-08-11] MEDS: APIXABAN 5 MG TABLET PO ×2 (08:40→20:35)
[2018-08-11] MEDS: ASPIRIN EC 81 MG TABLET PO (08:40)
[2018-08-11] MEDS: PREGABALIN 75 MG CAPSULE 150 MG PO ×3 (08:40→20:35)
[2018-08-11] MEDS: ALBUTEROL 2.5 MG/3 ML NEB (ADULT) INH (08:40)
[2018-08-11] MEDS: METOPROLOL ER 25 MG TABLET PO (08:41)
[2018-08-11] MEDS: SENNOSIDES 8.6 MG TABLET PO ×2 (08:41→20:35)
--- NOTE | 2018-08-11 09:24 | CM.DPC ---
DCP Cont: Spoke to patient regarding [facility]. was not present as of yet. Brought in Medicare Choice list, and left at bedside for review. Patient stated, I still want to go home, but will see. Stated that he would discuss with , Yael. May check in later today with patient and . P: DCP to follow closely. Will also consult with P.T. team regarding home with home health versus [facility]. Latricia Hernandez RN/[employer]er
--- NOTE | 2018-08-11 10:22 | OT.IP.TRT ---
Current Diagnoses Sepsis, unspecified organism (08/09/18) Occupational Therapy Treatment Note M2 OT-IP Current Condition Start: 08/09/18 13:38 Freq: Status: Active Protocol: Document 08/09/18 13:41 CCC (Rec: 08/09/18 14:00 CCC [email or web address]) Occupational Therapy Current Condition Current Condition Evaluation Date 08/09/18 Treatment Diagnosis Acute pyelonephritis,sepsis, UTI Diagnosis Onset Date 08/09/18 Weight Bearing Status Weight Bearing Status Weight Bear as Tolerated M3 OT- IP Subjective and Pain Start: 08/09/18 13:38 Freq: Status: Active Protocol: Document 08/11/18 10:22 PJM (Rec: 08/11/18 15:40 PJM [id number]) OT- Subjective Occupational Therapy Visit Type Type Treatment Note Visit Start Time 09:20 Visit Stop Time 10:22 Total Visit Minutes 62 Occupational Therapy Visit Comments Patient Comments Pt requesting shower. Patient/Caregiver Goals to go home and see his dog OT Pain Assessment Pain When Pain Assessed After Treatment Pain Present Pain Present Denied Pain M4 OT- IP ADL's Start: 08/09/18 13:38 Freq: Status: Active Protocol: Document 08/11/18 10:22 PJM (Rec: 08/11/18 15:40 PJM [id number]) OT ADL-Grooming General Evaluation Grooming Ability Standby Assistance Areas Needing Assistance Combing/Brushing Hair Comments OT Grooming Comments standing at sink with FWW OT ADL-Oral Care General Eval Oral Care Ability Standby Assistance Devices Oral Care Devices Toothbrush Comments Oral Care Comments standing at sink with FWW OT ADL-Dressing General Eval Lower Body Dressing Ability Standby Assistance Areas Needing Assistance Underpants/Brief Socks Comments OT Dressing Comments Pt has sock aid,switchboard inspector, and long shoe horn at home and is familiar with their use. Pt needs verbal cues to sit to get pants off over feet to decrease fall risk. OT ADL-Toileting General Evaluation Toileting Ability Independent Areas Needing Assistance Empty Catheter or Colostomy Comments OT Toileting Comments Pt has had urostomy for 20 yrs. RN in this session to educate pt re: washroom cleaner technique for ostomy bag tubing connections. OT ADL-Bathing Bathing Type Bathing Type Shower General Evaluation Bathing Ability Contact Guard Assistance Areas Needing Assistance Retrieving/Setting Up Items Devices Bathing Equipment Long Handled Sponge or Motion Picture Critic Held Shower Sprayer Shower Chair with Arms Grab Bars Comments OT Bathing Comments Pt SBA for shower standing about 50% of the time with heavy use of grab bars. Pt had loss of balance x2 while standing to wash with CGA provided by therapist to steady pt. Pt initially confused about sequence of shower in unfamiliar bathroom, e.g. trying to get soap out of dispenser and begin washing before gown removed and water turned on. Pt has all necessary bathroom safety equipt at home. M6 OT- IP Functional Cognition Start: 08/09/18 13:38 Freq: Status: Active Protocol: Document 08/11/18 10:22 PJM (Rec: 08/11/18 15:40 PJ [email or web address]) Cognitive Factors Limiting Selfcare Function Cognitive Ability Level of Alertness Alert Attention Span Ability Capable of Focused Attention Capable of Sustained Attention Ability to Follow Commands Able to Follow One Step Commands Cognitive Comments Cognitive Assessment Comments Mild confusion noted re: sequence of bathing in unfamiliar setting as ntoed above. M7 OT- IP Mobility and Balance Start: 08/09/18 13:38 Freq: Status: Active Protocol: Document 08/11/18 10:22 PJM (Rec: 08/11/18 15:40 PJ [email or web address]) OT- Bed Mobility Assessment Rolling Type of Rolling Roll to Left Level of Assistance Independent Supine to Sit Supine to Sit Assist Standby Assistance Head of Bed Elevated Bedrails Scooting Scooting to Edge of Bed Independent OT-Transfer Assessment Sit to and From Stand Sit to and from Stand Standby Assistance Transfers Transfer Ability Standby Assistance Technique Transfer Destination Chair Shower Stall Transfer Technique Stand Step Pivot Devices Transfer Assistive Devices Gait Belt Front Wheeled Walker Comments Mobility Comments Pt SBA with FWW this session. Per discussion with Aubrey , pt cannot use FWW is his home due to very narrow hallways, doorways. OT- Gait Assessment Gait Gait Assistance Required: Standby Assistance Distance (Feet) 25 Assistive Devices Assistive Device Gait Belt Front Wheeled Walker Comments Gait Ability Comments No loss of balance noted during gait. OT- Balance Assessment Sitting Balance and Reactions Static Sitting Balance Ability Good Dynamic Sitting Balance Ability Good Standing Balance and Reactions Static Standing Balance Ability Good Dynamic Standing Balance Ability Fair Comments Other Balance Tests/Deviations/Treatment 2 episodes of loss of balance : in shower requiring CGA form therapist. M8 OT- IP Objective Assessments Start: 08/09/18 13:38 Freq: Status: Active Protocol: Document 08/09/18 13:41 CCC (Rec: 08/09/18 14:00 CCC [email or web address]) OT Gross Range of Motion Upper Extremity Range of Motion Assessment Within Functional Limits OT Strength Upper Extremity Strength Assessment Within Functional Limits M9 OT- IP Assessment and Plan Start: 08/09/18 13:38 Freq: Status: Active Protocol: Document 08/11/18 10:22 PJM (Rec: 08/11/18 15:40 PJM [email or web address]) OT Summary Assessment and Plan Potential Rehabilitation Potential Good Summary OT Impairments Balance Functional Mobility Bathing Shower Transfers Progress Towards Goals Progressing Toward Goals Assessment Summary Pt presents with improved activity tolerance today; tolerating 1 hour session with no SOB on room air. Pt's O2 sats 94, HR 108 after showering and standing at sink for grooming. Pt using FWW for ambulation into shower stall today, but per P.T. notes pt's FWW will not fit into his bathroom at home. Pt mildly confused about unfamilair shower set up requiring min verbal cues to sequence task. Pt's primary deficit appears to be decreased dynamic standing balance with 2 episodes of loss of balance in shower requiring CGA from therapist for safety. Most OT goals achieved for this admission. Pt appears appropriate for home discharge when medically stable and clears P.T. but recommend SBA for safety when standing to shower to decreased fall risk at home. Will discuss with pt and tomorrow. Goals Grooming Goal Independent Dressing Goal Standby Assistance Toileting Goal Standby Assistance Bathing Goal Contact Guard Assistance Toilet Transfer Goal Standby Assistance Shower Transfer Goal Standby Assistance Patient/Caregiver Education Goal Caregiver Independent Assisting Patient Days to Meet Goals 2 Frequency of Treatment Frequency Of Treatment Once a Day Treatment Plan OT Treatment Plan ADL Training Functional Mobility Patient/Family Education Discharge Planning Other Treatment Recommendations and Next family education re: home Treatment Focus safety Discharge Recommendations OT Discharge Recommendations Home with Assistance Other Discharge Recommendations SBA to [facility] for standing in shower for safety due to fall risk.
--- NOTE | 2018-08-11 11:40 | PT.IPTN ---
Current Diagnoses Sepsis, unspecified organism (08/09/18) Physical Therapy Treatment Note M2 PT-IP Current Condition Start: 08/09/18 12:05 Freq: NEEDED Status: Active Protocol: Document 08/09/18 10:05 HH (Rec: 08/09/18 12:49 [id number]) Physical Therapy Current Condition Current Condition Evaluation Date 08/09/18 Treatment Diagnosis Sepsis, Pyelonephritis, ONEL, impaired gait and activity tolerance Onset Date 08/09/18 Weight Bearing Status Weight Bearing Status Weight Bear as Tolerated M3 PT-IP Subjective Start: 08/09/18 12:05 Freq: NEEDED Status: Active Protocol: Document 08/11/18 11:40 GGD (Rec: 08/11/18 12:21 GGD [email or web address]) Subjective Physical Therapy Visit Type Type Treatment Note Visit Start Time 11:10 Visit Stop Time 11:40 Total Visit Minutes 30 Number of METAL HARDENER Visits 2 Physical Therapy Visit Comments Patient Comments Pt willing to work with therapy. M4 PT-IP Mobility and Gait Start: 08/09/18 12:05 Freq: NEEDED Status: Active Protocol: Document 08/11/18 11:40 GGD (Rec: 08/11/18 12:21 GGD [email or web address]) PT-Bed Mobility Assessment Rolling Type of Rolling Roll to Right Level of Assist Standby Assistance Supine to Sit Supine to Sit Standby Assistance Head of Bed Elevated Sit to Supine Sit to Supine Standby Assistance Head of Bed Elevated Scooting Scooting to Edge of Bed Standby Assistance PT-Transfer Assessment Sit to and From Stand Sit to and from Stand Contact Guard Assistance 1 Person Assistance Equipment Transfer Assistive Device Gait Belt Orthotic/Prosthetic Devices or Brace: No Transfers Transfer Destination Bed Chair Transfer Ability Level of Assist Contact Guard Assistance Use of Upper Extremities Gait Assessment Gait Gait Assistance Required: Contact Guard Assist Distance (Feet) 30 Able to Maintain Weight Bearing Status Yes During Gait Assistive Devices Assistive Device Gait Belt Orthotic/Prosthetic Devices or Brace: No Gait Deviations General Gait Pattern Decreased Stride Length Decreased Feet Clearance Flexed Trunk Factors Limiting Gait Function Factors Limiting Gait Function Decreased Activity Tolerance Decreased Strength Poor Balance Poor Safety Awareness M5 PT-IP Objective Assessments Start: 08/09/18 12:05 Freq: NEEDED Status: Active Protocol: Document 08/09/18 10:05 HH (Rec: 08/09/18 12:49 [id number]) Orientation Orientation/Cognition Level of Alertness Alert Orientation Name Age Birthday Month Date Year Day of Week Place Situation Language Function Ability No Deficits Noted Safety Awareness Understands Safety Issues Memory Description No Deficits Noted Gross Range of Motion Upper Extremity ROM Assessment Within Functional Limits Lower Extremity ROM Assessment Within Functional Limits Strength Upper Extremity Strength Assessment Within Functional Limits Lower Extremity Strength Assessment Within Functional Limits Coordination Assessment Gross Coordination Gross Coordination WNL Assessment Finger to Nose Test Normal Performance Pronation/Supination Test Normal Performance Sensation Assessment Sensation Gross Sensation WNL Light Touch Intact Proprioception (Position) Intact Muscle Tone Muscle Tone WNL Yes M6 PT-IP Treatment Start: 08/09/18 12:05 Freq: NEEDED Status: Active Protocol: Document 08/10/18 09:35 SA (Rec: 08/10/18 09:42 SA [id number]) Physical Therapy Treatment Exercises Exercises Ankle Pumps Gluteal Sets Quad Sets Education Education Provided Safety Other Treatments Other Treatment Performed Standing postural correction and PLB. M7 PT-IP Assessment and Plan Start: 08/09/18 12:05 Freq: NEEDED Status: Active Protocol: Document 08/11/18 11:40 GGD (Rec: 08/11/18 12:21 GGD [email or web address]) PT Summary Assessment and Plan Summary Assessment Summary Pt was safe with bed mobility. He did have min touching of bed with gait, but no LOB. Pt was SBA for mobility. He would like to D/C home. Frequency of Treatment Frequency Of Treatment Once a Day Treatment Plan Physical Therapy Treatment Plan Bed Mobility Training Transfer Training Gait Training Therapeutic Exercise Balance Retraining Discharge Planning Neuromuscular Re-ed Recommendations To Nursing Amount of Assist Needed Standby Assistance Discharge Recommendations PT Discharge Recommendations Home Outpatient PT
--- NOTE | 2018-08-11 12:14 | PM.PN.1 ---
Subjective Date Patient Seen: 08/11/18 Interval history: Francisco J Albarran is an 82-year-old male history significant for bladder cancer status post ileocecal conduit with urostomy, prostate cancer, thyroid cancer status post thyroidectomy, hypothyroidism, nephrolithiasis, coronary artery disease, hypertension, vertigo, peripheral neuropathy and long-term anticoagulation who is admitted for urinary sepsis. Patient reports overall improvement, feeling stronger, did well getting out of bed and walking in room with PT. He does note getting winded with walking. Exam Vital Signs (past 8 hours): - 08/11/18 07:53 08/11/18 08:41 08/11/18 08:50 Temperature 97.8 F Pulse Rate 73 88 91 H Respiratory Rate 16 Blood Pressure 151/77 H Pulse Oximetry 94 94 08/11/18 11:16 Temperature 99.4 F Pulse Rate 85 Respiratory Rate 16 Blood Pressure 135/72 Pulse Oximetry 96 Oxygen Delivery Method Room Air Oxygen Flow Rate 0 Narrative Exam Narrative: GENERAL: Alert, cooperative and pleasant male sitting in bedside chair and in no acute distress HEENT: Head normocephalic, atraumatic. Mucous membranes moist. CHEST: Breathing nonlabored, few bibasilar crackles CARDIAC: Regular rate and rhythm. ABDOMEN: Nondistended, soft, nontender EXTREMITIES: Mild bilateral pedal edema NEUROLOGICAL: Well-oriented, no focal findings SKIN: Warm, dry, no petechiae, no rash Objective Labs Result Diagrams: 08/11/18 06:26 08/11/18 06:26 Labs: Laboratory Results - last 24 hr 08/11/18 08/11/18 08/11/18 06:26 06:26 06:26 WBC 9.5 RBC 3.36 L Hgb 10.1 L Hct 28.8 L MCV 85.7 MCH 30.0 MCHC 35.0 RDW 14.0 Plt Count 149 L Neut % (Auto) 89.4 H Lymph % (Auto) 4.8 L [place] % (Auto) 3.2 Eos % (Auto) 2.0 Baso % (Auto) 0.6 Neut # (Auto) 8500 H Lymph # (Auto) 500 L [place] # (Auto) 300 Eos # (Auto) 200 Baso # (Auto) 100 Sodium 135 L Potassium 4.1 Chloride 106 Carbon Dioxide 22 BUN 16 Creatinine 1.00 Estimated GFR > 60.0 BUN/Creatinine Ratio 16.0 Glucose 110 Calcium 8.2 L Magnesium 1.8 Total Bilirubin 0.3 AST 38 ALT 30 Alkaline Phosphatase 58 Total Protein 5.6 L Albumin 2.7 L Globulin 2.9 Albumin/Globulin Ratio 0.9 L Procalcitonin 7.34 H Assessment & Plan Assessment & Plan narrative: Francisco J Albarran is an 82-year-old male history significant for bladder cancer status post ileocecal conduit with urostomy, prostate cancer, thyroid cancer status post thyroidectomy, hypothyroidism, nephrolithiasis, coronary artery disease, hypertension, vertigo, peripheral neuropathy and long-term anticoagulation who is admitted for urinary sepsis. 1. Acute sepsis, present on admission. Resolved. -Patient presented with fever, chills, rigors, and metabolic encephalopathy. -Sepsis criteria met and includes: Febrile (temperature 103?), tachypneic (respiratory rate 26), tachycardic (heart rate 101) with source urinary. Lactate 2.0 and procalcitonin 0.67. -Early goal-directed therapy met including: IV fluid hydration and broad-spectrum antibiotic. -IV hep-locked on 08/11/2018 as patient appears mildly volume overloaded with increase in weight, and ordered 20 mg IV Lasix x1 2. Acute recurrent E coli bacteremia and UTI, present on admission. Active. -Patient has surgically absent bladder and is status post ileal conduit with urostomy and presented with fevers, chills, rigors and encephalopathy. -blood in urine cultures positive for E coli sensitive to Rocephin current antibiotic -Initial WBC normal at 7.5 and procalcitonin 0.67, peaked at 14.8 and 19.64 respectively on 08/10/2018, and subsequently improving. -Due to recurrent urinary infections obtained CT abdomen and pelvis with contrast which did not demonstrate any acute intra-abdominal abnormalities and kidneys looked normal in size and texture. No stones but somewhat limited due to contrast dye. -patient was admitted just last month with E coli bacteremia and may be beneficial for him to have outpatient urology evaluation to determine etiology of recurrent urinary infections 3. Acute hyponatremia, unclear etiology. Resolved -Patient is asymptomatic. Initial Na 127, current sodium 135. Patient typically has high volume output through urostomy. Continue strict I&Os as above. 4. Acute metabolic encephalopathy, present on admission. Resolved. -Secondary to sepsis and infection. Has resolved with IV fluid hydration. 5. Hypertension, chronic -Continue metoprolol succinate 25 mg daily. Held hydrochlorothiazide, amlodipine and losartan. 6. Long-term anticoagulation with Eliquis, present on admission. Chronic. -Unclear reason for anticoagulation. No history of atrial fibrillation, blood clots, PAD/PVD. May be for VTE prophylaxis in setting of multiple previous cancers now presumed to be in remission? -Continue Eliquis 5 mg twice daily. 7. CAD status post [place], present on admission. Chronic. -Patient has no chest pain, palpitations or shortness of breath. -Continue aspirin 81 mg daily, atorvastatin 40 mg daily at bedtime, and Eliquis 5 mg twice daily. 8. 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 -Patient previously had thyroid cancer status post thyroidectomy. -TSH now 0.07 for TSH suppression. For high-risk and intermediate-risk patients, the guidelines recommend TSH below 0.1 mU/L, and, for low-risk patients TSH at or slightly below the lower limit of normal (0.1?0.5 mU/L). -Continue levothyroxine 200 mcg daily and will need to be followed up by clinical pharmacy coordinator outpatient. 9. Normocytic normochromic anemia, present on admission. Chronic. -Likely anemia of chronic disease. -slight condition drop in hemoglobin and hematocrit likely dilutional from volume resuscitation and not of concern 10. Peripheral neuropathy, present on admission. Chronic. -Continue home Lyrica 150 mg 3 times daily. Disposition: Patient with improving course for treatment of sepsis due to urinary source and probably will be able to discharge home tomorrow, . Physical therapy has been seeing him in hospital and agrees patient will do okay at home with outpatient or home health physical therapy.
--- NOTE | 2018-08-11 12:27 | P.PN_ITS ---
Subjective Date Patient Seen: 08/11/18 Interval history: Francisco J Albarran is an 82-year-old male history significant for bladder cancer status post ileocecal conduit with urostomy, prostate cancer, thyroid cancer status post thyroidectomy, hypothyroidism, nephrolithiasis, coronary artery disease, hypertension, vertigo, peripheral neuropathy and long- term anticoagulation who is admitted for urinary sepsis. Patient reports overall improvement, feeling stronger, did well getting out of bed and walking in room with PT. He does note getting winded with walking. Exam Vital Signs (past 8 hours): - 08/11/18 07:53 08/11/18 08:41 08/11/18 08:50 Temperature 97.8 F Pulse Rate 73 88 91 H Respiratory Rate 16 Blood Pressure 151/77 H Pulse Oximetry 94 94 08/11/18 11:16 Temperature 99.4 F Pulse Rate 85 Respiratory Rate 16 Blood Pressure 135/72 Pulse Oximetry 96 Oxygen Delivery Method Room Air Oxygen Flow Rate 0 Narrative Exam Narrative: GENERAL: Alert, cooperative and pleasant male sitting in bedside chair and in no acute distress HEENT: Head normocephalic, atraumatic. Mucous membranes moist. CHEST: Breathing nonlabored, few bibasilar crackles CARDIAC: Regular rate and rhythm. ABDOMEN: Nondistended, soft, nontender EXTREMITIES: Mild bilateral pedal edema NEUROLOGICAL: Well-oriented, no focal findings SKIN: Warm, dry, no petechiae, no rash Objective Labs Result Diagrams: 08/11/18 06:26 08/11/18 06:26 Labs: Laboratory Results - last 24 hr 08/11/18 08/11/18 08/11/18 06:26 06:26 06:26 WBC 9.5 RBC 3.36 L Hgb 10.1 L Hct 28.8 L MCV 85.7 MCH 30.0 MCHC 35.0 RDW 14.0 Plt Count 149 L Neut % (Auto) 89.4 H Lymph % (Auto) 4.8 L [place] % (Auto) 3.2 Eos % (Auto) 2.0 Baso % (Auto) 0.6 Neut # (Auto) 8500 H Lymph # (Auto) 500 L [place] # (Auto) 300 Eos # (Auto) 200 Baso # (Auto) 100 Sodium 135 L Potassium 4.1 Chloride 106 Carbon Dioxide 22 BUN 16 Creatinine 1.00 Estimated GFR > 60.0 BUN/Creatinine Ratio 16.0 Glucose 110 Calcium 8.2 L Magnesium 1.8 Total Bilirubin 0.3 AST 38 ALT 30 Alkaline Phosphatase 58 Total Protein 5.6 L Albumin 2.7 L Globulin 2.9 Albumin/Globulin Ratio 0.9 L Procalcitonin 7.34 H Assessment & Plan Assessment & Plan narrative: Francisco J Albarran is an 82-year-old male history significant for bladder cancer status post ileocecal conduit with urostomy, prostate cancer, thyroid cancer status post thyroidectomy, hypothyroidism, nephrolithiasis, coronary artery disease, hypertension, vertigo, peripheral ne uropathy and long-term anticoagulation who is admitted for urinary sepsis. 1. Acute sepsis, present on admission. Resolved. -Patient presented with fever, chills, rigors, and metabolic encephalopathy. -Sepsis criteria met and includes: Febrile (temperature 103?), tachypneic (respiratory rate 26), tachycardic (heart rate 101) with source urinary. Lactate 2.0 and procalcitonin 0.67. -Early goal-directed therapy met including: IV fluid hydration and broad- spectrum antibiotic. -IV hep-locked on 08/11/2018 as patient appears mildly volume overloaded with increase in weight, and ordered 20 mg IV Lasix x1 2. Acute recurrent E coli bacteremia and UTI, present on admission. Active. -Patient has surgically absent bladder and is status post ileal conduit with urostomy and presented with fevers, chills, rigors and encephalopathy. -blood in urine cultures positive for E coli sensitive to Rocephin current antibiotic -Initial WBC normal at 7.5 and procalcitonin 0.67, peaked at 14.8 and 19.64 respectively on 08/10/2018, and subsequently improving. -Due to recurrent urinary infections obtained CT abdomen and pelvis with contrast which did not demonstrate any acute intra-abdominal abnormalities and kidneys looked normal in size and texture. No stones but somewhat limited due to contrast dye. -patient was admitted just last month with E coli bacteremia and may be beneficial for him to have outpatient urology evaluation to determine etiology of recurrent urinary infections 3. Acute hyponatremia, unclear etiology. Resolved -Patient is asymptomatic. Initial Na 127, current sodium 135. Patient typically has high volume output through urostomy. Continue strict I&Os as above. 4. Acute metabolic encephalopathy, present on admission. Resolved. -Secondary to sepsis and infection. Has resolved with IV fluid hydration. 5. Hypertension, chronic -Continue metoprolol succinate 25 mg daily. Held hydrochlorothiazide, amlodipine and losartan. 6. Long-term anticoagulation with Eliquis, present on admission. Chronic. -Unclear reason for anticoagulation. No history of atrial fibrillation, blood clots, PAD/PVD. May be for VTE prophylaxis in setting of multiple previous canc ers now presumed to be in remission? -Continue Eliquis 5 mg twice daily. 7. CAD status post [place], present on admission. Chronic. -Patient has no chest pain, palpitations or shortness of breath. -Continue aspirin 81 mg daily, atorvastatin 40 mg daily at bedtime, and Eliquis 5 mg twice daily. 8. 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 -Patient previously had thyroid cancer status post thyroidectomy. -TSH now 0.07 for TSH suppression. For high-risk and intermediate-risk patients, the guidelines recommend TSH below 0.1 mU/L, and, for low-risk patients TSH at or slightly below the lower limit of normal (0.1?0.5 mU/L). -Continue levothyroxine 200 mcg daily and will need to be followed up by contract negotiation manager outpatient. 9. Normocytic normochromic anemia, present on admission. Chronic. -Likely anemia of chronic disease. -slight condition drop in hemoglobin and hematocrit likely dilutional from volume resuscitation and not of concern 10. Peripheral neuropathy, present on admission. Chronic. -Continue home Lyrica 150 mg 3 times daily. Disposition: Patient with improving course for treatment of sepsis due to urinary source and probably will be able to discharge home tomorrow, . Physical therapy has been seeing him in hospital and agrees patient will do okay at home with outpatient or home health physical therapy.
[2018-08-11] MEDS: FUROSEMIDE 20 MG/2 ML VIAL IV (12:28)
--- NOTE | 2018-08-11 14:17 | CM.DPC ---
DCP Cont: Met with patient again today regarding discharge plan. Had intended to meet with , but she was not present. Patient's sister was at bedside. Patient was working with physical therapy today. He is wanting to go home with outpatient physical therapy. He stated that there was a place in [place] that he had been going to prior to hospitalization. Mentioned home health as well, but patient continues to prefer outpatient. Left a message for , Yael, to call this renal case manager back. P: DCP to continue to follow. Patient wishes to discharge home, versus skilled. Will continue to consult with physical therapy. Patient could potentially discharge tomorrow if medically stable. Latricia Hernandez RN/Building Coordinator
[2018-08-11] MEDS: SODIUM CHLORIDE 0.9% FLUSH 10 ML IV (20:35)
[2018-08-11] MEDS: ATORVASTATIN 20 MG TABLET 40 MG PO (20:35)
[2018-08-11] MEDS: MELATONIN 3 MG TABLET 6 MG PO (20:36)
[2018-08-12] MEDS: LEVOTHYROXINE 100 MCG TABLET 200 MCG PO (05:59)
[2018-08-12] MEDS: CEFTRIAXONE 2 GM/50 ML FROZ.PIGGY IV (05:59)
[2018-08-12 06:00] VITALS: BP 138/77; PULSE 65; RESP 16; TEMP 36.6; O2SAT 95
[2018-08-12] MEDS: SODIUM CHLORIDE 0.9% FLUSH 10 ML IV (06:00)
[2018-08-12 09:20] VITALS: BP 140/72; PULSE 62; RESP 18; TEMP 36.4; O2SAT 97
--- NOTE | 2018-08-12 10:08 | OT.IP.TRT ---
Current Diagnoses Sepsis, unspecified organism (08/09/18) Occupational Therapy Treatment Note M3 OT- IP Subjective and Pain Start: 08/09/18 13:38 Freq: Status: Active Protocol: Document 08/12/18 10:08 PJM (Rec: 08/12/18 17:23 [facility] [id number]) OT- Subjective Occupational Therapy Visit Type Type Treatment Note Visit Start Time 09:22 Visit Stop Time 10:08 Total Visit Minutes 46 Notes Pt's here at end of session for education re: home safety. Occupational Therapy Visit Comments Patient Comments I slept very well last night. Patient/Caregiver Goals to go home today and resume out pt P.T. OT Pain Assessment Pain When Pain Assessed After Treatment Pain Present Pain Present Denied Pain M4 OT- IP ADL's Start: 08/09/18 13:38 Freq: Status: Active Protocol: Document 08/12/18 10:08 PJM (Rec: 08/12/18 17:23 [facility] [id number]) OT ADL-Grooming General Evaluation Grooming Ability Standby Assistance Areas Needing Assistance Combing/Brushing Hair Face Washing Comments OT Grooming Comments pt stood at sink with no LOB noted OT ADL-Oral Care General Eval Areas of Assistance Brushing Teeth Devices Oral Care Devices Toothbrush Comments Oral Care Comments pt stood at sink with no LOB noted OT ADL-Dressing General Eval Upper Body Dressing Ability Independent Lower Body Dressing Ability Standby Assistance Areas Needing Assistance Pull-Over Shirt Underpants/Brief Pants/Shorts Socks Shoes Assistive Devices Dressing Assistive Devices End Finder Twisting Department Sock Aid Comments OT Dressing Comments SBA for safety/standing balance when pulling pants over hips; pt able to don pullover shirt in standing with no LOB noted. Pt has adaptive equipt at home and familiar with it's use. OT ADL-Toileting General Evaluation Toileting Ability Independent Areas Needing Assistance Empty Catheter or Colostomy Comments OT Toileting Comments pt able to disconnect ostomy from night bag using alcohol wipes on connections/plugs M7 OT- IP Mobility and Balance Start: 08/09/18 13:38 Freq: Status: Active Protocol: Document 08/12/18 10:08 PJJenifer (Rec: 08/12/18 17:23 [facility] [id number]) OT- Bed Mobility Assessment Rolling Type of Rolling Roll to Left Level of Assistance Independent Head of Bed Elevated Supine to Sit Supine to Sit Assist Independent 1 Person Assistance Scooting Scooting to Edge of Bed Independent OT-Transfer Assessment Sit to and From Stand Sit to and from Stand Minimal Assistance Transfers Transfer Ability Standby Assistance Technique Transfer Destination Chair Transfer Technique Stand Step Pivot Devices Transfer Assistive Devices None Comments Mobility Comments Per discussion with P.T. and pt, pt's home is too small for use of FWW. Pt furniture/wall walks at home. When pt first stood up from EOB and started to walk towards sink, he had one significant loss of balance requiring CGA to min assist to correct as he had nothing to stabilize on. Provided education to pt's re: this event. She can provide SBA as needed at home and will make arrangements to move furniture in home to create space for use of FWW as needed per P.T. recommendations. OT- Gait Assessment Gait Gait Assistance Required: Contact Guard Assist Distance (Feet) 20 Assistive Devices Assistive Device None Comments Gait Ability Comments CGA for safety when pt cannot stabilize on furniture or wall OT- Balance Assessment Sitting Balance and Reactions Static Sitting Balance Ability Good Dynamic Sitting Balance Ability Good Standing Balance and Reactions Static Standing Balance Ability Fair Dynamic Standing Balance Ability Fair M9 OT- IP Assessment and Plan Start: 08/09/18 13:38 Freq: Status: Active Protocol: Document 08/12/18 10:08 LEVY (Rec: 08/12/18 17:23 [facility] [id number]) OT Summary Assessment and Plan Summary OT Impairments Balance Progress Towards Goals Safe For Discharge Goals Met Assessment Summary Pt SBA to independent with dressing in street clothes and grooming at sink today. Only concern for d/c home today is pt's LOB during mobility when no furniture/wall to stabilize on. Note pt also had mild LOB x2 when standing for portion of shower yesterday requiring CGA for safety. Provided education to pt's re: these incidents of loss of balance and pt's high fall risk. She can provide SBA as needed at home and will make arrangements to move furniture in home to create space for use of FWW as needed per P.T. recommendations. Pt plans to resume out pt P.T. services after d/c. He declines HH P.T. No further OT services needed. Frequency of Treatment Frequency Of Treatment Discharge Discharge Recommendations OT Discharge Recommendations Home with Assist Home Equipment Needs pt has all necessary equipt
[2018-08-12] MEDS: SENNOSIDES 8.6 MG TABLET PO (10:11)
[2018-08-12] MEDS: PREGABALIN 75 MG CAPSULE 150 MG PO (10:11)
[2018-08-12] MEDS: DOCUSATE 100 MG CAPSULE PO (10:11)
[2018-08-12] MEDS: METOPROLOL ER 25 MG TABLET PO (10:11)
[2018-08-12] MEDS: APIXABAN 5 MG TABLET PO (10:12)
[2018-08-12] MEDS: ASPIRIN EC 81 MG TABLET PO (10:12)
--- NOTE | 2018-08-12 11:45 | PT.IPTN ---
Current Diagnoses Sepsis, unspecified organism (08/09/18) Physical Therapy Treatment Note M2 PT-IP Current Condition Start: 08/09/18 12:05 Freq: NEEDED Status: Active Protocol: Document 08/09/18 10:05 HH (Rec: 08/09/18 12:49 HH [id number]) Physical Therapy Current Condition Current Condition Evaluation Date 08/09/18 Treatment Diagnosis Sepsis, Pyelonephritis, ONEL, impaired gait and activity tolerance Onset Date 08/09/18 Weight Bearing Status Weight Bearing Status Weight Bear as Tolerated M3 PT-IP Subjective Start: 08/09/18 12:05 Freq: NEEDED Status: Active Protocol: Document 08/12/18 11:45 GGD (Rec: 08/12/18 12:10 GGD [id number]) Subjective Physical Therapy Visit Type Type Patient Refusal Notes Pt states he is hoping to D/C and would like to wait until after lunch for therapy.
--- NOTE | 2018-08-12 12:12 | P.DS_ITS ---
History of Present Illness Date Patient Seen: 08/12/18 Time Patient Seen: 12:05 Chief complaint: Has shakes, possible fever, not walking well wobbl Narrative: 82-year-old male with past medical history of bladder cancer status post ileocecal conduit with urostomy, prostate cancer, thyroid cancer status post thyroidectomy, hypothyroidism, nephrolithiasis, CAD, hypertension, vertigo, peripheral neuropathy and long-term anticoagulation with Eliquis, who presented to ED with complaints of confusion, fevers, and rigors. Symptoms began the evening before admission with severe fever and chills. Patient took Tylenol and mild improvement in symptoms. However, as the night progressed patient became worse and fevers returned. At this time patient's noted patient to be more confused and weak. Therefore she called the ambulance for patient to be evaluated in ED. Patient reported no symptoms of URI. No headaches or visual changes. He did complain of some orthostatic dizziness on admission. Denied any complaints of chest pain or palpitations. Denied shortness of breath, coug h, wheezing. Denied abdominal pain, nausea, vomiting, diarrhea. He did complain of chronic constipation that he uses laxatives for. Discharge Providers Date of admission: 08/09/18 05:47 Discharge Date: 08/12/18 Primary care physician: SERGIO Hooper Consults: 08/09/18 06:25 Consult to Discharge Planning Routine Comment: 08/09/18 06:52 Consult to Physical Therapy Evaluate & Treat Comment: Weakness, sepsis, status post ORIF right hip Physician Instructions: Evaluate and Treat 08/09/18 06:53 Consult to Occupational Therapy Evaluate & Treat Comment: Weakness, sepsis, status post ORIF right hip Physician Instructions: Evaluate and treat 08/10/18 09:20 Consult to Respiratory Therapy Evaluate & Treat Comment: Physician Instructions: Evaluate and treat Discharge provider: Adrianne Morales MD Summary Discharge Diagnosis: Sepsis due to UTI and bacteremia, resolved Recurrent E coli bacteremia and UTI, on therapy, resolving Acute hyponatremia, resolved Acute metabolic encephalopathy likely due to sepsis, resolved Hypertension, chronic, stable Long-term anticoagulation with Eliquis, chronic CAD status post IA, stable Secondary hypothyroidism, stable Normocytic normochromic anemia, stable Peripheral neuropathy, stable Hospital Course: In ED patient was found to have a low-grade temperature at 99? upon arrival however he had received Tylenol at home prior to arrival and subsequently developed temperature of 103. He was tachycardic at 101and tachypneic at 26. He had a blood pressure of 124/62 and was 95% on air. On laboratory analysis his urine is positive for 3+ leukocyte esterase, white blood cells and blood and many bacteria. His white blood cell count is 7.5 with left shift of 94% neutrophils and has platelet count of 187. On chemistry is hyponatremic 128 with a potassium of 4.6. His BUN is 23 with creatinine 1.1 and a glucose of 106. His lactate is 2 0.0 and procalcitonin is 0.67. He is taking Xarelto ever has a PT elevated at 17.3 and INR 1.5. In the ER the patient has received 1 g of Rocephin with request for a 2nd g to be given. Patient was then transferred to general medical floor for further management of sepsis with UTI as the likely source. Once on general medical floor, ceftriaxone IV was continued. Patient was also started on IV hydration with normal saline at 100 cc an hour. Tylenol was given for fevers as needed. Blood and urine cultures were drawn which both came back positive for E coli sensitive to ceftriaxone. WBC and procalcitonin initially increased however upon discharge CBC was back to normal, and procalcitonin decreased to 7.34. Blood pressure remained stable with IV fluid hydration, which was subsequently stopped on 08/11 due to concerns for fluid overload. Patient's encephalopathy has resolved since admission to the hospital, and was deemed to be due to sepsis. Initially patient was hyponatremic however that re solved with fluid administration. His overall condition substantially improved and he was back to baseline on 08/12. Physical therapy has been working with patient, and recommended subacute rehab, to which patient refused. He also refused home health, but was willing to consider outpatient PT/OT. Patient's blood and urine cultures were both sensitive to levofloxacin therapy, which patient will be sent home on for 11 more days to complete a 14 day course (given the recent history of UTI, longer duration of therapy will be implemented close). Status at Discharge Cognitive/behavioral status at discharge: oriented Overall status at discharge: patient is back to baseline Time Spent with Patient Greater than 30 minutes Exam Vital Signs (past 8 hours): - 08/12/18 06:00 08/12/18 09:20 Temperature 97.8 F 97.5 F L Pulse Rate 65 62 Respiratory Rate 16 18 Blood Pressure 138/77 140/72 Pulse Oximetry 95 97 Oxygen Delivery Method Room Air Oxygen Flow Rate 0 Narrative Exam Narrative: GENERAL: Alert, cooperative and pleasant male sitting in bedside chair and in no acute distress HEENT: Head normocephalic, atraumatic. Mucous membranes moist. CHEST: Breathing nonlabored, few bibasilar crackles CARDIAC: Regular rate and rhythm. no murmurs ABDOMEN: Nondistended, soft, nontender. ileo conduit present with ileostomy bag, connected to Hicks bag EXTREMITIES: Mild bilateral pedal edema NEUROLOGICAL: Well-oriented, no focal findings SKIN: Warm, dry, no petechiae, no rash Objective Labs Result Diagrams: 08/11/18 06:26 08/11/18 06:26 Discharge Plan Discharge Plan Discharge Problem: Urinary tract infection, Altered mental status Patient Disposition: Home Discharge Med Rec/Prescriptions Prescriptions: New levofloxacin 750 mg tablet 750 mg PO DAILY Qty: 11 RF: 0 Continued losartan 50 mg tablet 2 tab PO QPM RF: 0 atorvastatin 40 mg tablet 1 tab PO BEDTIME RF: 0 docusate calcium 240 mg capsule 1 cap PO BEDTIME RF: 0 aspirin 81 mg tablet,delayed release (DR/EC) 1 tab PO DAILY RF: 0 pregabalin 150 mg capsule 1 cap PO TID RF: 0 levothyroxine 200 mcg Tablet 200 mcg PO 0700 RF: 0 sennosides [senna] 8.6 mg Tablet 8.6 mg PO BID RF: 0 amlodipine 10 mg tablet 1 tab PO DAILY RF: 0 metoprolol succinate 25 mg tablet extended release 24 hr 1 tab PO DAILY RF: 0 diphenhydramine-acetaminophen [Acetaminophen PM] 25-500 mg Tablet 1 tab PO BEDTIME PRN (Reason: Insomnia) RF: 0 docusate sodium 100 mg Tablet 100 mg PO BID RF: 0 apixaban 5 mg tablet 1 tab PO BID RF: 0 meclizine 25 mg tablet 25 mg PO TID PRN (Reason: Dizziness Or Vertigo) RF: 0 Follow up/Referrals: Arpita Fall ARNP [Primary Care Provider] - Adrianne Morales MD [Physician] - Provider Discharge Instructions Diet: Regular, Low-fat, Low-sodium and Low-cholesterol Activity: Outpatient PT/OT Other treatments: Follow up to Urology outpatient Discharge Data Primary Care Provider: Arpita Fall Attending Provider: Norris Proctor Admashwin Date/Time: 08/09/18 05:47
--- NOTE | 2018-08-12 12:50 | CM.DPC ---
DCP Cont: Discussed patient during team rounds. Patient wanting to go home at discharge, and wants to pursue outpatient physical therapy versus home health. Dr. Morales is to add a note in discharge summary stating outpatient occupational and physical therapy. Patient has been working with physical therapy here at hospital, and has been present. P: Patient is to be discharged home today. He will pursue outpatient physical and occupational therapy. Latricia Hernandez RN/Breaker Unit Assembler
--- NOTE | 2018-08-12 14:13 | PC.NURSE ---
Discharge pt denies pain. up with 1 person assist and FWW. d/c instructions provided to pt and his . apt made for urology on 08/20 at 1015 at [facility]. pt aware of apt. pt already has apt with PCP scheduled shortly. aware to contact MD with any additional questions or concerns. pt left in w/c with RN escort.
== END 2018-08-12 14:00 | disposition home or self-care (01) | DRG 871 ==
LOC: ED 05:38 → AC 05:48
PROVIDERS: Internal Medicine; Admitting Provider Nurse Practitioner Adult Health; Emergency Provider Emergency Medicine; PCP Nurse Practitioner Gerontology; Visit Provider Nurse Practitioner Adult Health
DX: A41.9 Sepsis, unspecified organism (principal); G93.41 Metabolic encephalopathy; N10 Acute pyelonephritis; E87.1 Hypo-osmolality and hyponatremia; R65.20 Severe sepsis without septic shock; Z93.6 Other artificial openings of urinary tract status; I95.89 Other hypotension; I25.10 Atherosclerotic heart disease of native coronary artery without angina pectoris; E03.9 Hypothyroidism, unspecified; Z87.891 Personal history of nicotine dependence; Z79.01 Long term (current) use of anticoagulants; G62.9 Polyneuropathy, unspecified; B96.20 Unspecified Escherichia coli [E. coli] as the cause of diseases classified elsewhere
CPT/HCPCS: 36415; 36591; 74177; 80048; 80053; 81001; 83605; 83735; 84145; 84439; 84443; 85025; 85610; 85730; 87040; 87077; 87086; 87150; 87186; 87205; 94640; 94762; 96365; 97116; 97161; 97165; 97530; 97535; 99284; J0696; J1940; J7613

== ENCOUNTER → 2019-04-12 11:45 | Outpatient (CLI) | payer MEDICARE, OTHER, SELFPAY ==
[2018-08-09 06:49] VITALS: BMI 25.8
--- NOTE | 2019-04-12 | DI.US.S_ITS ---
PROCEDURE: US RENAL COMPLETE INDICATIONS: HISTORY OF BLADDER CANCER TECHNIQUE: Real-time scanning was performed of the kidneys and bladder, with image documentation. COMPARISON: [facility], , RENAL COMPLETE, 06/13/2015, 12:25. FINDINGS: Kidneys: Kidneys are normal in size. Right kidney measures 9.1 cm long; left kidney measures 9.1 cm long. Right renal cortical thickness is 0.6 cm; left renal cortical thickness is 0.8 cm. Renal cortical echotexture is normal. No hydronephrosis or nephrolithiasis. No suspicious solid mass lesions. 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 Bladder: The bladder is surgically absent. Miscellaneous: No free pelvic fluid. IMPRESSION: No hydronephrosis. Bilateral cortical thinning suggesting medical renal disease. Dictated by: Rosa Isela Murphy M.D. on 04/12/2019 at 16:44 Approved by: Rosa Isela Murphy M.D. on 04/12/2019 at 16:45
== END ==
PROVIDERS: PCP Nurse Practitioner Gerontology; Visit Provider Urology
DX: Z08 Encounter for follow-up examination after completed treatment for malignant neoplasm (principal); Z85.51 Personal history of malignant neoplasm of bladder; Z90.6 Acquired absence of other parts of urinary tract
CPT/HCPCS: 76770

== ENCOUNTER 2019-10-31 13:48 | Inpatient (IN) | payer MEDICARE, OTHER, SELFPAY ==
[2018-08-09 06:49] VITALS: BMI 25.8
[2019-10-31] VITALS (15 sets, daily range): BP systolic 122–148; BP diastolic 48–77; PULSE 54–66; RESP 12–29; TEMP 36.6–37.3; O2SAT 96–98; BMI 26.5
--- NOTE | 2019-10-31 13:42 | DI.RAD.S_ITS ---
PROCEDURE: XR HIP W PEL IF DONE LT 2V INDICATIONS: s/p mech fall landed on L hip, pain in lateral hip TECHNIQUE: 3 views of the hip were acquired. COMPARISON: [facility] JELENA Gilbert, XR PELVIS WITH LATERAL HIP RIGHT, 12/15/2017, 9:43. FINDINGS: Bones: There is a left femoral neck fracture with mild impaction and proximal displacement of the principal distal fracture fragment. No additional fractures are evident. There is no dislocation or suspicious osseous lesion. Soft tissues: No suspicious soft tissue calcifications or masses. IMPRESSION: Mildly displaced left femoral neck fracture. Dictated by: Ten Dodd M.D. on 10/31/2019 at 13:47 Approved by: Ten Dodd M.D. on 10/31/2019 at 13:48
--- NOTE | 2019-10-31 14:04 | ED.FALL ---
HPI - Fall <Francois SERGIO Hines - Last Filed: 11/01/19 00:54> General Chief Complaint: Trauma Stated Complaint: Fall, L Hip pain Time Seen by Provider: 10/31/19 15:47 Source: patient Mode of arrival: EMS Limitations: no limitations History of Present Illness HPI Narrative: This is a 84-year-old male, former smoker, who has history of right hip replacement in October 2018 at , bladder cancer with a urostomy, hypertension, [place] in 1995, prostate and thyroid removal presents to ED with [facility] with chief complain of left lateral hip pain. Patient is currently taking Eliquis and baby aspirin. Patient states he was standing on stocking feet and accidentally his left foot gave out and landed on left hip. Patient reports intact sensation distal foot and reports is able to move all his toes. Patient reports he is in relatively good health. He denies hitting his head, losing consciousness, or other injuries. Patient denies chest pain, increasing breathing difficulty from his baseline or dizziness prior the fall. Related Data Home Medications Medication Instructions Recorded Confirmed aspirin 1 tab PO DAILY 11/07/17 10/31/19 atorvastatin 1 tab PO BEDTIME 11/07/17 10/31/19 docusate calcium 1 cap PO BEDTIME 11/07/17 10/31/19 losartan 100 mg PO QPM 11/07/17 10/31/19 pregabalin 1 cap PO TID 11/07/17 10/31/19 amlodipine 1 tab PO DAILY 06/11/18 10/31/19 diphenhydramine-acetaminophen 1 tab PO BEDTIME PRN 06/11/18 10/31/19 [Acetaminophen PM] docusate sodium 100 mg PO BID 06/11/18 10/31/19 meclizine 25 mg PO Q8H PRN 06/11/18 10/31/19 metoprolol succinate 1 tab PO DAILY 06/11/18 10/31/19 sennosides [senna] 8.6 mg PO BID 06/11/18 10/31/19 levothyroxine 200 mcg PO 0700 08/09/18 10/31/19 apixaban [Eliquis] 5 mg PO DAILY 10/31/19 10/31/19 fluticasone propionate [Flonase 1 spray INTRANASAL BID 10/31/19 10/31/19 Allergy Relief] gv-[id number]-vit [id number]-[id number]-[id number] 1 cap PO DAILY 10/31/19 10/31/19 [Daily Multivitamin] Allergies Allergy/AdvReac Type Severity Reaction Status Date / Time No Known Drug Allergies Allergy Verified 11/07/17 20:47 Review of Systems <SERGIO Yates - Last Filed: 11/01/19 00:54> Review of Systems Narrative: General: Denies fever, chills, fatigue, malaise, sweats. HEENT: Denies sinus pain, ear pain, sore throat, difficulty swallowing, dizziness. Respiratory: Denies dyspnea, cough, wheezing, hemoptysis, sputum. Cardiovascular: Denies chest pain, palpitations, orthopnea, edema. Gastrointestinal: Denies nausea, vomiting, abdominal pain, diarrhea, constipation, melena. : See HPI Musculoskeletal: See HPI Skin: Denies rash, skin lesions, or other. Neurologic: Denies weakness, headache, numbness, change in speech, confusion, seizures, incoordination. Psychiatric: No concerning psychosocial issues. 12-point review of systems is negative except for those stated above. Patient History <SERGIO Yates - Last Filed: 11/01/19 00:54> Medical History Bladder cancer (Acute) Coronary artery disease (Acute) Hypertension (Acute) Hyponatremia (Acute) Hypothyroid (Acute) Kidney stones (Acute) Prostate cancer (Acute) Thyroid cancer (Acute) Surgical History H/O colectomy (Acute) H/O thyroidectomy (Acute) History of appendectomy (Acute) History of urostomy (Acute) Family History Father Alcoholism Mother Alcoholism Social History household members: spouse Smoking Status: Former smoker alcohol intake: former substance use type: does not use Smoking Status: Former smoker alcohol intake frequency: other Substance Use Type: does not use Exam <SERGIO Yates - Last Filed: 11/01/19 00:54> Narrative Exam Narrative: GEN: Alert, oriented x 3, well appearing and nourished, and in no acute distress. Head: Normal cephalic, atraumatic. No scalp or temporal tenderness, palpable mass or rash. EYES: Pupils are equal, round, and reactive to light and accommodation. Extraocular muscles are intact bilaterally. There is no subconjunctival hemorrhage, exudate and sclera non-icteric. ENT: Hearing grossly intact. Nose without bleeding, purulent discharge or deviation. Airway patent. Neck: Trachea in midline. No JVD, non-tender without lymphadenopathy. No masses or thyroid megaly. Supple, non-tender and no meningeal signs. CARDIAC: Normal regular rate and rhythm without murmurs, gallops, or rubs. No chest wall tenderness. No peripheral edema, cyanosis or pallor. Capillary refill is less than 2 seconds. RESPIRATORY: Lungs are clear to auscultate bilaterally. No cough, wheezes, rales, or rhonchi. No stridor, respiratory distress, increase work of breathing, or accessary muscle used. ABD: Abdomen soft, nontender and non-distended. No guarding or rebound tenderness to palpate. Bowel sounds are normal in all 4 quadrants. There is no palpable masses or organomegaly. SKIN: Warm, dry, normal color for patient. No erythema, lesions or rash over visible areas. BACK: Nontender without deformity or crepitance. No flank tenderness. NEUROLOGICAL: Alert and oriented to place, time and person. Sensation and motor function intact bilaterally. No facial droops, dysphasia. PSYCHIATRIC: Good judgement and reason, without hallucinations, abnormal affect or abnormal behaviors during the examination. Patient is not suicidal. Initial Vital Signs Initial Vital Signs: Vital Signs Temperature 99.1 F 10/31/19 14:07 Pulse Rate 63 10/31/19 14:07 Respiratory Rate 12 10/31/19 14:07 Blood Pressure 122/60 10/31/19 14:07 Pulse Oximetry 96 10/31/19 14:07 Extrem Left lower extremity: normal to inspection, normal capillary refill, hip/thigh Details: normal to inspection, tenderness Location: of the hip Location: laterally and abnormal ROM Details: held in an abnormal fashion (Slightly flexed left leg supported on pillow) and pain with passive ROM Details: with ADduction, with ABduction, with flexion, with internal rotation and with external rotation; no swelling, no abrasions, no lacerations, no ecchymosis, no crepitus, no penetrating wound, no deformity and no unusual warmth, knee Details: normal to inspection; no tenderness and no swelling and foot Details: normal capillary refill, normal to inspection, tenderness, toes with normal ROM and no edema; abnormal ROM and no edema <Mathew Roland MD - Last Filed: 11/01/19 09:50> Initial Vital Signs Initial Vital Signs: Vital Signs Temperature 99.1 F 10/31/19 14:07 Pulse Rate 63 10/31/19 14:07 Respiratory Rate 12 10/31/19 14:07 Blood Pressure 122/60 10/31/19 14:07 Pulse Oximetry 96 10/31/19 14:07 Scores <SERGIO Yates - Last Filed: 11/01/19 00:54> GCS [place] coma scale eye opening: Spontaneous [place] coma scale verbal response: Orientated [place] coma scale motor response: [place] commands [place] coma scale total score: 15 Course <SERGIO Yates - Last Filed: 11/01/19 00:54> Orders Ordered: Acetaminophen (Tylenol) 975 mg PO Q8H [facility] Last Admin: 11/01/19 07:55 Dose: 975 mg Documented by: Admin: 11/01/19 03:49 Dose: Not Given Documented by: Admin: 10/31/19 22:00 Dose: 975 mg Documented by: DARLENE Amlodipine Besylate (Norvasc) 10 mg PO DAILY [facility] Last Admin: 11/01/19 07:58 Dose: 10 mg Documented by: CORNELIO Atorvastatin Calcium (Lipitor) 40 mg PO BEDTIME [facility] Last Admin: 10/31/19 21:58 Dose: 40 mg Documented by: DARLENE Bisacodyl (Dulcolax) 10 mg [place] DAILY PRN PRN Reason: Constipation Docusate Sodium (Colace) 100 mg PO BID [facility] Last Admin: 11/01/19 07:58 Dose: 100 mg Documented by: Admin: 10/31/19 21:59 Dose: 100 mg Documented by: DARLENE Sodium Chloride (Normal Saline 0.9%) 1,000 mls @ 100 mls/hr IV CONT [facility] Last Admin: 11/01/19 05:34 Dose: 100 mls/hr Documented by: Infusion: 11/01/19 05:34 Dose: 100 mls/hr Documented by: Admin: 10/31/19 20:50 Dose: 100 mls/hr Documented by: DARLENE Levothyroxine Sodium (Synthroid) 200 mcg PO 0700 [facility] Last Admin: 11/01/19 07:55 Dose: 200 mcg Documented by: CORNELIO Losartan Potassium (Cozaar) 100 mg PO QPM [facility] Meclizine HCl (Antivert) 25 mg PO Q8H PRN PRN Reason: Dizziness Or Vertigo Metoprolol Succinate (Toprol Xl) 25 mg PO DAILY [facility] Last Admin: 11/01/19 07:59 Dose: 25 mg Documented by: CORNELIO Morphine Sulfate (Morphine) 2 mg IV Q4HR PRN PRN Reason: Pain, Moderate (4-6) Multivitamins (Tab-A-Brooke) 1 tab PO DAILY [facility] Naloxone HCl (Narcan) 0.2 mg IV Q2MIN PRN PRN Reason: Opiate Reversal Ondansetron HCl (Zofran) 4 mg IV Q8HR PRN PRN Reason: Nausea And Vomiting Polyethylene Glycol (Miralax) 17 gm PO DAILY PRN PRN Reason: Constipation Pregabalin (Lyrica) 150 mg PO TID [facility] Last Admin: 11/01/19 07:58 Dose: 150 mg Documented by: Admin: 10/31/19 21:58 Dose: 150 mg Documented by: DARLENE Tramadol HCl (Ultram) 50 mg PO Q6H PRN PRN Reason: Pain, Moderate (4-6) Last Admin: 10/31/19 22:01 Dose: 50 mg Documented by: DARLENE Discontinued Medications Sodium Chloride (Normal Saline 0.9%) 1,000 mls @ 125 mls/hr IV CONT [facility] Stop: 10/31/19 19:37 Last Infusion: 10/31/19 18:15 Dose: 0 mls/hr Documented by: Admin: 10/31/19 17:00 Dose: 125 mls/hr Documented by: ARNEL Morphine Sulfate (Morphine) 2 mg IV Q2HR PRN PRN Reason: Pain, Moderate (4-6) Stop: 10/31/19 19:38 Last Admin: 10/31/19 18:00 Dose: 2 mg Documented by: Admin: 10/31/19 15:46 Dose: 2 mg Documented by: ARNEL Non-Formulary Medication (Nf-Xl-Dc-Vit W-[id number]-Coq10 [Daily Multivitamin]) 1 cap PO DAILY [facility] Last Admin: 11/01/19 08:00 Dose: Not Given Documented by: CORNELIO Oxycodone HCl (Percolone) 5 mg PO Q4HR PRN PRN Reason: Pain, Moderate (4-6) Oxycodone HCl (Percolone) 10 mg PO Q4HR PRN PRN Reason: Pain, Severe (7-10) Vital Signs Vital signs: Vital Signs - 8 hr 10/31/19 16:45 Pulse Rate 55 L Respiratory Rate 16 Blood Pressure 134/64 Pulse Oximetry 98 <Mathew Roland MD - Last Filed: 11/01/19 09:50> Orders Ordered: Acetaminophen (Tylenol) 975 mg PO Q8H [facility] Last Admin: 11/01/19 07:55 Dose: 975 mg Documented by: Admin: 11/01/19 03:49 Dose: Not Given Documented by: Admin: 10/31/19 22:00 Dose: 975 mg Documented by: DARLENE Amlodipine Besylate (Norvasc) 10 mg PO DAILY [facility] Last Admin: 11/01/19 07:58 Dose: 10 mg Documented by: CORNELIO Atorvastatin Calcium (Lipitor) 40 mg PO BEDTIME [facility] Last Admin: 10/31/19 21:58 Dose: 40 mg Documented by: DARLENE Bisacodyl (Dulcolax) 10 mg CA DAILY PRN PRN Reason: Constipation Docusate Sodium (Colace) 100 mg PO BID [facility] Last Admin: 11/01/19 07:58 Dose: 100 mg Documented by: Admin: 10/31/19 21:59 Dose: 100 mg Documented by: DARLENE Sodium Chloride (Normal Saline 0.9%) 1,000 mls @ 100 mls/hr IV CONT [facility] Last Admin: 11/01/19 05:34 Dose: 100 mls/hr Documented by: Infusion: 11/01/19 05:34 Dose: 100 mls/hr Documented by: Admin: 10/31/19 20:50 Dose: 100 mls/hr Documented by: DARLENE Levothyroxine Sodium (Synthroid) 200 mcg PO 0700 [facility] Last Admin: 11/01/19 07:55 Dose: 200 mcg Documented by: CORNELIO Losartan Potassium (Cozaar) 100 mg PO QPM [facility] Meclizine HCl (Antivert) 25 mg PO Q8H PRN PRN Reason: Dizziness Or Vertigo Metoprolol Succinate (Toprol Xl) 25 mg PO DAILY [facility] Last Admin: 11/01/19 07:59 Dose: 25 mg Documented by: CORNELIO Morphine Sulfate (Morphine) 2 mg IV Q4HR PRN PRN Reason: Pain, Moderate (4-6) Multivitamins (Tab-A-Brooke) 1 tab PO DAILY [facility] Naloxone HCl (Narcan) 0.2 mg IV Q2MIN PRN PRN Reason: Opiate Reversal Ondansetron HCl (Zofran) 4 mg IV Q8HR PRN PRN Reason: Nausea And Vomiting Polyethylene Glycol (Miralax) 17 gm PO DAILY PRN PRN Reason: Constipation Pregabalin (Lyrica) 150 mg PO TID [facility] Last Admin: 11/01/19 07:58 Dose: 150 mg Documented by: Admin: 10/31/19 21:58 Dose: 150 mg Documented by: DARLENE Tramadol HCl (Ultram) 50 mg PO Q6H PRN PRN Reason: Pain, Moderate (4-6) Last Admin: 10/31/19 22:01 Dose: 50 mg Documented by: DARLENE Discontinued Medications Sodium Chloride (Normal Saline 0.9%) 1,000 mls @ 125 mls/hr IV CONT [facility] Stop: 10/31/19 19:37 Last Infusion: 10/31/19 18:15 Dose: 0 mls/hr Documented by: Admin: 10/31/19 17:00 Dose: 125 mls/hr Documented by: ARNEL Morphine Sulfate (Morphine) 2 mg IV Q2HR PRN PRN Reason: Pain, Moderate (4-6) Stop: 10/31/19 19:38 Last Admin: 10/31/19 18:00 Dose: 2 mg Documented by: Admin: 10/31/19 15:46 Dose: 2 mg Documented by: ARNEL Non-Formulary Medication (Yb-Wx-Gf-Vit F-Mhwke-Xkg-Coq10 [Daily Multivitamin]) 1 cap PO DAILY [facility] Last Admin: 11/01/19 08:00 Dose: Not Given Documented by: Oxycodone HCl (Percolone) 5 mg PO Q4HR PRN PRN Reason: Pain, Moderate (4-6) Oxycodone HCl (Percolone) 10 mg PO Q4HR PRN PRN Reason: Pain, Severe (7-10) Vital Signs Vital signs: Vital Signs - 8 hr 10/31/19 16:45 Pulse Rate 55 L Respiratory Rate 16 Blood Pressure 134/64 Pulse Oximetry 98 MDM - Fall <Francois ChildsSERGIO Qureshi - Last Filed: 11/01/19 00:54> Differential Diagnosis Differential diagnosis: Likely other (Hip/pelvis fracture, hip contusion) Medical Records Attestation: I reviewed the patient's medical records. Lab Data Attestation: I reviewed the patient's lab results. Result diagrams: 11/01/19 05:40 11/01/19 05:40 Labs: Lab Results 10/31/19 10/31/19 10/31/19 Range/Units 14:05 14:54 14:54 WBC 7.7 (4.5-11.0) X10^3/uL RBC 3.84 L (4.5-5.9) X10^6/uL Hgb 9.5 L (13.5-17.5) g/dL Hct 29.1 L (41-53) % MCV 75.9 L (80-100) fL MCH 24.8 L (26-34) PG MCHC 32.7 (30-36) % RDW 15.5 H (11.6-14.8) % Plt Count 274 (150-400) X10^3/uL Neut % (Auto) 74.5 (50-75) % Lymph % (Auto) 10.2 L (25-40) % [place] % (Auto) 9.5 (3-14) % Eos % (Auto) 5.2 H (2-4) % Baso % (Auto) 0.6 (0-2) % Neut # (Auto) 5700 (8036-8391) /uL Lymph # (Auto) 800 L (9041-6967) /uL [place] # (Auto) 700 (0-900) /uL Eos # (Auto) 400 (0-450) /uL Baso # (Auto) 0 (0-100) /uL PT 16.4 H (10.1-12.7) SECONDS INR 1.4 H (0.9-1.3) APTT 34 D (26.4-36.2) SECONDS Sodium (137-145) mmol/L Potassium (3.4-5.1) mmol/L Chloride (98-107) mmol/L Carbon Dioxide (22-32) mmol/L BUN (9-20) mg/dL Creatinine (0.66-1.25) mg/dL Estimated GFR (>60) mL/min BUN/Creatinine Ratio (6-22) Glucose (80-110) mg/dL Calcium (8.4-10.2) mg/dL Magnesium (1.6-2.3) mg/dL Total Bilirubin (0.2-1.3) mg/dL AST (17-59) IU/L ALT (<50) IU/L Alkaline Phosphatase (38-126) U/L Total Protein (6.3-8.2) g/dL Albumin (3.5-5.0) g/dL Globulin (1.7-4.1) g/dL Albumin/Globulin Ratio (1.0-2.8) Urine Color Yellow Urine Appearance Sl cloudy Urine pH 7.0 (4.5-8.0) Ur Specific [place] 1.015 (1.000-1.035) Urine Protein Negative (Negative) Urine Glucose (UA) Negative (Negative) g/dL Urine Ketones Negative (NEGATIVE) Urine Occult Blood 1+ H (Negative) Urine Nitrate Positive (Negative) Urine Bilirubin Negative (NEGATIVE) Urine Urobilinogen 0.2 (0.2) E.U./dL Ur Leukocyte Esterase 1+ H (NEGATIVE) Urine RBC 5-10/hpf H (0-5/HPF) Urine WBC 5-10/hpf H (0-5/HPF) Ur Squamous Epith Cells 0-1 /hpf (0-5/HPF) Urine Bacteria Many (>30) H (None) Ur Culture Indicated? Specimen cultured COVID-19 PCR (Negative) 10/31/19 10/31/19 10/31/19 Range/Units 14:54 14:54 16:42 WBC (4.5-11.0) X10^3/uL RBC (4.5-5.9) X10^6/uL Hgb (13.5-17.5) g/dL Hct (41-53) % MCV (80-100) fL MCH (26-34) PG MCHC (30-36) % RDW (11.6-14.8) % Plt Count (150-400) X10^3/uL Neut % (Auto) (50-75) % Lymph % (Auto) (25-40) % [place] % (Auto) (3-14) % Eos % (Auto) (2-4) % Baso % (Auto) (0-2) % Neut # (Auto) (2373-0161) /uL Lymph # (Auto) (8091-3649) /uL [place] # (Auto) (0-900) /uL Eos # (Auto) (0-450) /uL Baso # (Auto) (0-100) /uL PT (10.1-12.7) SECONDS INR (0.9-1.3) APTT (26.4-36.2) SECONDS Sodium 124 L (137-145) mmol/L Potassium 4.8 (3.4-5.1) mmol/L Chloride 89 L (98-107) mmol/L Carbon Dioxide 31 (22-32) mmol/L BUN 13 (9-20) mg/dL Creatinine 0.84 (0.66-1.25) mg/dL Estimated GFR > 60.0 (>60) mL/min BUN/Creatinine Ratio 15.5 (6-22) Glucose 114 H (80-110) mg/dL Calcium 8.5 (8.4-10.2) mg/dL Magnesium 1.8 (1.6-2.3) mg/dL Total Bilirubin 0.3 (0.2-1.3) mg/dL AST 37 (17-59) IU/L ALT 14 (<50) IU/L Alkaline Phosphatase 96 (38-126) U/L Total Protein 6.4 (6.3-8.2) g/dL Albumin 3.6 (3.5-5.0) g/dL Globulin 2.8 (1.7-4.1) g/dL Albumin/Globulin Ratio 1.3 (1.0-2.8) Urine Color Urine Appearance Urine pH (4.5-8.0) Ur Specific [place] (1.000-1.035) Urine Protein (Negative) Urine Glucose (UA) (Negative) g/dL Urine Ketones (NEGATIVE) Urine Occult Blood (Negative) Urine Nitrate (Negative) Urine Bilirubin (NEGATIVE) Urine Urobilinogen (0.2) E.U./dL Ur Leukocyte Esterase (NEGATIVE) Urine RBC (0-5/HPF) Urine WBC (0-5/HPF) Ur Squamous Epith Cells (0-5/HPF) Urine Bacteria (None) Ur Culture Indicated? COVID-19 PCR Negative (Negative) Urine Dip Bedside Urine Glucose Negative Bedside Urine Bilirubin - Negative Bedside Urine Ketone - Negative Urine Specific [place] 1.010 Bedside Urine Occult Blood +/- Bedside Urine pH 7.0 Bedside Urine Protein - Negative Bedside Urine Urobilinogen - Negative Bedside Urine Nitrite + Positive Bedside Urine Leukocytes + 70 Esterase Imaging Data XR-Hip LT: Radiologist's Impression: IMPRESSION from radiologist Dr.Malan Caal as mildly displaced left femoral neck fracture ECG Data Attestation: I personally reviewed and interpreted this ECG as follows: Prior ECG tracings: available for review Interpretation: Sinus rhythm rate at 60. CA interval 152, QRS duration 90, QT/QTC 412/412 Left dominant axis No acute ST changes Left ventricular hypertrophy MDM Narrative Medical decision making narrative: Modified Trauma initiated for the fall. The patient is currently taking Eliquis. This is a 84 year male presents to ED by EMS with left hip pain after he sustained a ground level mechanical fall on a linoleum floor after his left leg gave out. Patient is currently taking Eliquis and baby aspirin. Patient has good pulse distally in dorsal pedal. Patient is able to move toes with intact sensation. Limited active and passive ROM due to pain and states was unable to bear weight after he fell. The pain was managed with IV morphine 2 mg. EKG shows sinus rhythm without acute ST changes. X-ray test on left hip shows mildly displaced left femoral neck fracture. Today's CBC shows anemia. H/H as 9.5/29.1 and this is the patient's lowest. His H/H runs historically from 9.9-12.4. INR is 1.4 with PT of 16.4 and on anticoagulant and baby aspirin. Hyponatremia of 124. Hypochloremia of 89. Patient reports he has a history of hyponatremia in the past and had hospitalized in the past for this. Started gentle IV hydration of normal saline in ED. Possible bladder infection and urine was obtained from urostomy. There is 1+ urine leukocyte esterase with positive urine nitrate. Urine WBC is 5-10 with many bacteria urine is pending for culture. Findings were discussed with hospitalist Dr. Rothman and she kindly accepted his care with Orthopedist Dr. Lepe's consult for surgical repair for the fracture. Patient and family informed that likely surgery will be delayed due to Eliquis in to prevent surgical bleed. Patient and family verbalized understanding in agreement with treatment plan for admission. <Mathew Roland MD - Last Filed: 11/01/19 09:50> Lab Data Labs: Lab Results 10/31/19 10/31/19 10/31/19 Range/Units 14:05 14:54 14:54 WBC 7.7 (4.5-11.0) X10^3/uL RBC 3.84 L (4.5-5.9) X10^6/uL Hgb 9.5 L (13.5-17.5) g/dL Hct 29.1 L (41-53) % MCV 75.9 L (80-100) fL MCH 24.8 L (26-34) PG MCHC 32.7 (30-36) % RDW 15.5 H (11.6-14.8) % Plt Count 274 (150-400) X10^3/uL Neut % (Auto) 74.5 (50-75) % Lymph % (Auto) 10.2 L (25-40) % [place] % (Auto) 9.5 (3-14) % Eos % (Auto) 5.2 H (2-4) % Baso % (Auto) 0.6 (0-2) % Neut # (Auto) 5700 (2737-6370) /uL Lymph # (Auto) 800 L (8905-3727) /uL [place] # (Auto) 700 (0-900) /uL Eos # (Auto) 400 (0-450) /uL Baso # (Auto) 0 (0-100) /uL PT 16.4 H (10.1-12.7) SECONDS INR 1.4 H (0.9-1.3) APTT 34 D (26.4-36.2) SECONDS Sodium (137-145) mmol/L Potassium (3.4-5.1) mmol/L Chloride (98-107) mmol/L Carbon Dioxide (22-32) mmol/L BUN (9-20) mg/dL Creatinine (0.66-1.25) mg/dL Estimated GFR (>60) mL/min BUN/Creatinine Ratio (6-22) Glucose (80-110) mg/dL Calcium (8.4-10.2) mg/dL Magnesium (1.6-2.3) mg/dL Total Bilirubin (0.2-1.3) mg/dL AST (17-59) IU/L ALT (<50) IU/L Alkaline Phosphatase (38-126) U/L Total Protein (6.3-8.2) g/dL Albumin (3.5-5.0) g/dL Globulin (1.7-4.1) g/dL Albumin/Globulin Ratio (1.0-2.8) Urine Color Yellow Urine Appearance Sl cloudy Urine pH 7.0 (4.5-8.0) Ur Specific [place] 1.015 (1.000-1.035) Urine Protein Negative (Negative) Urine Glucose (UA) Negative (Negative) g/dL Urine Ketones Negative (NEGATIVE) Urine Occult Blood 1+ H (Negative) Urine Nitrate Positive (Negative) Urine Bilirubin Negative (NEGATIVE) Urine Urobilinogen 0.2 (0.2) E.U./dL Ur Leukocyte Esterase 1+ H (NEGATIVE) Urine RBC 5-10/hpf H (0-5/HPF) Urine WBC 5-10/hpf H (0-5/HPF) Ur Squamous Epith Cells 0-1 /hpf (0-5/HPF) Urine Bacteria Many (>30) H (None) Ur Culture Indicated? Specimen cultured COVID-19 PCR (Negative) 10/31/19 10/31/19 10/31/19 Range/Units 14:54 14:54 16:42 WBC (4.5-11.0) X10^3/uL RBC (4.5-5.9) X10^6/uL Hgb (13.5-17.5) g/dL Hct (41-53) % MCV (80-100) fL MCH (26-34) PG MCHC (30-36) % RDW (11.6-14.8) % Plt Count (150-400) X10^3/uL Neut % (Auto) (50-75) % Lymph % (Auto) (25-40) % [place] % (Auto) (3-14) % Eos % (Auto) (2-4) % Baso % (Auto) (0-2) % Neut # (Auto) (3653-5522) /uL Lymph # (Auto) (2429-2997) /uL [place] # (Auto) (0-900) /uL Eos # (Auto) (0-450) /uL Baso # (Auto) (0-100) /uL PT (10.1-12.7) SECONDS INR (0.9-1.3) APTT (26.4-36.2) SECONDS Sodium 124 L (137-145) mmol/L Potassium 4.8 (3.4-5.1) mmol/L Chloride 89 L (98-107) mmol/L Carbon Dioxide 31 (22-32) mmol/L BUN 13 (9-20) mg/dL Creatinine 0.84 (0.66-1.25) mg/dL Estimated GFR > 60.0 (>60) mL/min BUN/Creatinine Ratio 15.5 (6-22) Glucose 114 H (80-110) mg/dL Calcium 8.5 (8.4-10.2) mg/dL Magnesium 1.8 (1.6-2.3) mg/dL Total Bilirubin 0.3 (0.2-1.3) mg/dL AST 37 (17-59) IU/L ALT 14 (<50) IU/L Alkaline Phosphatase 96 (38-126) U/L Total Protein 6.4 (6.3-8.2) g/dL Albumin 3.6 (3.5-5.0) g/dL Globulin 2.8 (1.7-4.1) g/dL Albumin/Globulin Ratio 1.3 (1.0-2.8) Urine Color Urine Appearance Urine pH (4.5-8.0) Ur Specific [place] (1.000-1.035) Urine Protein (Negative) Urine Glucose (UA) (Negative) g/dL Urine Ketones (NEGATIVE) Urine Occult Blood (Negative) Urine Nitrate (Negative) Urine Bilirubin (NEGATIVE) Urine Urobilinogen (0.2) E.U./dL Ur Leukocyte Esterase (NEGATIVE) Urine RBC (0-5/HPF) Urine WBC (0-5/HPF) Ur Squamous Epith Cells (0-5/HPF) Urine Bacteria (None) Ur Culture Indicated? COVID-19 PCR Negative (Negative) Urine Dip Bedside Urine Glucose Negative Bedside Urine Bilirubin - Negative Bedside Urine Ketone - Negative Urine Specific [place] 1.010 Bedside Urine Occult Blood +/- Bedside Urine pH 7.0 Bedside Urine Protein - Negative Bedside Urine Urobilinogen - Negative Bedside Urine Nitrite + Positive Bedside Urine Leukocytes + 70 Esterase Discharge Plan Departure Patient Disposition: Admitted As Inpatient Clinical Impression: Hyponatremia Closed fracture of neck of left femur Qualifiers: Encounter type: initial encounter Qualified Code(s): S72.002A - Fracture of unspecified part of neck of left femur, initial encounter for closed fracture Anemia Qualifiers: Anemia type: unspecified type Qualified Code(s): D64.9 - Anemia, unspecified Discharge Date/Time: 10/31/19 18:23 Referrals: Arpita Fall ARNP [Primary Care Provider] - Admit Date/Time: 10/31/19 16:55 Admit Provider: Teresa Rothman
[2019-10-31 14:25] LABS: Appearance Urine UA SL CLOUDY; Bilirubin Urine UA NEGATIVE (NEGATIVE); Color Urine UA YELLOW; Glucose Urine UA NEGATIVE (Negative); Ketones Urine UA NEGATIVE (NEGATIVE); Leukocyte Esterase Urine UA 1+ (NEGATIVE); Nitrite Urine UA POSITIVE (Negative); Occult Blood Urine UA 1+ (Negative); Protein Urine UA NEGATIVE (Negative); Specific Gravity Urine UA 1.015 (1.000-1.035); Urobilinogen Urine UA 0.2 E.U./dL (0.2)
[2019-10-31 14:34] LABS: RBC Urine 5-10/HPF (0-5/HPF)
[2019-10-31 14:35] LABS: Bacteria Urine Many (>30); Culture Indicated Urine Specimen Cultured; Squamous Epithelial Cell Urine 0-1 /HPF (0-5/HPF); WBC Urine 5-10/HPF (0-5/HPF)
[2019-10-31 15:01] LABS: Add Manual Diff / Slide Review NO; Basophils Absolute Auto 0 /uL (0-100); Basophils Percent Auto 0.6 % (0-2); Eosinophils Absolute Auto 400 /uL (0-450); Eosinophils Percent Auto 5.2 % (2-4); Hematocrit 29.1 % (41-53); Hemoglobin 9.5 g/dL (13.5-17.5); Lymphocytes Absolute Auto 800 /uL (1100-4500); Lymphocytes Percent Auto 10.2 % (25-40); Mean Corpuscular HGB Conc 32.7 % (30-36); Mean Corpuscular Hemoglobin 24.8 PG (26-34); Mean Corpuscular Volume 75.9 fL (80-100); Monocytes Absolute Auto 700 /uL (0-900); Monocytes Percent Auto 9.5 % (3-14); Neutrophils Absolute Auto 5700 /uL (1500-7000); Neutrophils Percent Auto 74.5 % (50-75); Platelet Count 274 X10^3/uL (150-400); Red Blood Cell Count 3.84 X10^6/uL (4.5-5.9); Red Cell Distribution Width 15.5 % (11.6-14.8); White Blood Cell Count 7.7 X10^3/uL (4.5-11.0)
[2019-10-31 15:08] LABS: INR 1.4 (0.9-1.3); Prothrombin Time 16.4 SECONDS (10.1-12.7)
[2019-10-31 15:11] LABS: PTT Partial Thromboplastin Tim 34 SECONDS (26.4-36.2)
[2019-10-31 15:13] LABS: Alanine Aminotransferase 14 IU/L (<50); Albumin 3.6 g/dL (3.5-5.0); Albumin Globulin Ratio 1.3 (1.0-2.8); Alkaline Phosphatase 96 U/L (38-126); Aspartate Aminotransferase 37 IU/L (17-59); BUN Creatinine Ratio 15.5 (6-22); Bilirubin Total 0.3 mg/dL (0.2-1.3); Blood Urea Nitrogen 13 mg/dL (9-20); Calcium 8.5 mg/dL (8.4-10.2); Carbon Dioxide 31 mmol/L (22-32); Chloride 89 mmol/L (98-107); Estimated Glomerular Filt Rate > 60.0 mL/min (>60); Globulin 2.8 g/dL (1.7-4.1); Glucose 114 mg/dL (80-110); HEMOLYSIS < 15 (0-50); Potassium 4.8 mmol/L (3.4-5.1); Sodium 124 mmol/L (137-145); Total Protein 6.4 g/dL (6.3-8.2)
[2019-10-31 15:37] LABS: Magnesium 1.8 mg/dL (1.6-2.3)
[2019-10-31] MEDS: MORPHINE 2 MG/ML INJ IV ×2 (15:46→18:00)
[2019-10-31] MEDS: SODIUM CHLORIDE 0.9% 1,000 ML 125 ML IV (17:00)
--- NOTE | 2019-10-31 17:58 | PC.NURSE ---
called report and the RN was not available.
[2019-10-31 18:25] LABS: COVID19 -Nasal RAPID Negative (Negative)
--- NOTE | 2019-10-31 20:31 | P.HP_ITS ---
History of Present Illness History of Present Illness Date Patient Seen: 10/31/19 Time Patient Seen: 20:14 Chief complaint: Fall, L Hip pain Narrative: Mr. Francisco J Albarran is an 84-year-old male history significant for bladder cancer status post ileocecal conduit with urostomy, prostate cancer, thyroid cancer status post thyroidectomy, hypothyroidism, nephrolithiasis, coronary artery disease, hypertension, vertigo, peripheral neuropathy and long- term anticoagulation who presents to the ER with complaints of left hip pain. 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 The patient states he landed on his left hip but did strike his head but did not lose consciousness and denies head pain neck pain or back pain. The patient was unable to get up related to pain was brought to the ER by EMS. Prior to today's events the patient has been in his usual state reports fevers or chills and no COVID-19 exposures. He has a history of cardiac disease and denies complaints of chest pain or palpitations. He reports no shortness of breath though he states he does not have activity tolerance he used to. He denies complaints cough or wheezing. He has no complaints epigastric pain or abdominal pain and has abdominal hernia from prior laparotomy for bladder and prostate cancer. He has an ileostomy that is draining normally without complication. He does report intermittent constipation for which he routinely takes stool softener and his last BM was this morning. Upon arrival the ER the patient has a temperature 99.1?, heart rate 72, blood pressure 140/72, respirations of 18 saturating 97% air. Imaging is obtained of the left hip which demonstrates impacted mildly displaced is left femoral neck fracture. Twelve lead EKG demonstrates sinus rhythm with heart rate of 60 beats per minute without ectopy, left anterior fascicular block no evidence of ischemia or infarct. On laboratory analysis his white count of 7.7. Hemoglobin 9.5, hematocrit of 29.1 and platelets of 274. He has a PT 16.4, INR 1.4 and a PTT of 34. His MCV is 75.9 MCH is 24 8 his electrolytes are all within normal limits with a potassium of 4.8 and a magnesium 0.18. His BUN is 13 is creatinine 0.84 with a nonfasting glucose 114. His LFTs are all within normal range with an albumin of 3.6. On urinalysis urine is found to be slightly cloudy with pH 7.0, specific gravity 1.015 with 1+ occult blood, positive for nitrates and leukocyte esterase with wbc's and many bacteria. Samples reflexed to culture. In the ER patient received morphine 2 mg normal saline 1500 cc. Orthopedic consult is obtained and patient is admitted to the medicine service for left hip fracture. Patient History Medical History Bladder cancer (Acute) Coronary artery disease (Acute) Hypertension (Acute) Hyponatremia (Acute) Hypothyroid (Acute) Kidney stones (Acute) Prostate cancer (Acute) Thyroid cancer (Acute) Surgical History H/O colectomy (Acute) H/O thyroidectomy (Acute) History of appendectomy (Acute) History of urostomy (Acute) Family & Social History Family History Father Alcoholism Mother Alcoholism Social History: household members spouse Safety & Behavioral: Feels Safe in Current No Environment Been Physically Hurt or No Threatened By a Person Tobacco & Substance use: Smoking Status Former smoker alcohol intake former alcohol intake frequency other Substance Use Type does not use Meds Home Medications and Allergies Home Medications Medication Instructions Recorded Confirmed Type aspirin 1 tab PO DAILY 11/07/17 10/31/19 History atorvastatin 1 tab PO BEDTIME 11/07/17 10/31/19 History docusate calcium 1 cap PO BEDTIME 11/07/17 10/31/19 History losartan 100 mg PO QPM 11/07/17 10/31/19 History pregabalin 1 cap PO TID 11/07/17 10/31/19 History amlodipine 1 tab PO DAILY 06/11/18 10/31/19 History diphenhydramine-acetaminophen 1 tab PO BEDTIME PRN 06/11/18 10/31/19 History [Acetaminophen PM] docusate sodium 100 mg PO BID 06/11/18 10/31/19 History meclizine 25 mg PO Q8H PRN 06/11/18 10/31/19 History metoprolol succinate 1 tab PO DAILY 06/11/18 10/31/19 History sennosides [senna] 8.6 mg PO BID 06/11/18 10/31/19 History levothyroxine 200 mcg PO 0708/09/18 10/31/19 History apixaban [Eliquis] 5 mg PO DAILY 10/31/19 10/31/19 History fluticasone propionate [Flonase 1 spray INTRANASAL BID 10/31/19 10/31/19 History Allergy Relief] [id number] 1 cap PO DAILY 10/31/19 10/31/19 History [Daily Multivitamin] Allergies Allergy/AdvReac Type Severity Reaction Status Date / Time No Known Drug Allergies Allergy Verified 11/07/17 20:47 Review of Systems Review of Systems ROS: Yes All systems reviewed with the patient and are negative except as otherwise documented Exam Vital Signs (past 8 hours): - 10/31/19 14:07 10/31/19 15:54 10/31/19 16:00 Temperature 99.1 F Pulse Rate 63 57 L 57 L Respiratory Rate 12 14 15 Blood Pressure 122/60 138/70 140/64 Pulse Oximetry 96 98 98 10/31/19 16:25 10/31/19 16:30 10/31/19 16:31 Temperature Pulse Rate 57 L 62 60 Respiratory Rate 20 29 H 26 H Blood Pressure 139/62 Pulse Oximetry 98 96 97 10/31/19 16:45 10/31/19 17:00 10/31/19 17:15 Temperature Pulse Rate 55 L 55 L 56 L Respiratory Rate 16 19 14 Blood Pressure 134/64 133/69 139/69 Pulse Oximetry 98 97 97 10/31/19 17:30 10/31/19 17:46 10/31/19 18:00 Temperature Pulse Rate 54 L 58 L Respiratory Rate 17 28 H Blood Pressure 148/72 H 134/65 136/72 Pulse Oximetry 97 96 10/31/19 18:15 10/31/19 18:30 Temperature 98.6 F Pulse Rate 56 L 66 Respiratory Rate 14 21 Blood Pressure 132/65 133/77 Pulse Oximetry 97 98 Oxygen Delivery Method Room Air Oxygen Flow Rate 0 Narrative Exam Narrative: GENERAL APPEARANCE: well developed, well nourished, in no acute distress. HEAD: Normocephalic, atraumatic, no scalp contusions or lesions, GENARO, sclera anicteric, EOMs intact without nystagmus, no sinus tenderness, rhinorrhea or epistaxis, oral mucosa moist and pink NECK/THYROID: neck supple, preserved ROM, nontender, no step-offs, no jugular venous distention, no carotid bruit, no thyromegaly, trachea midline. LYMPH NODES: no cervical or supraclavicular lymphadenopathy. SKIN: warm and dry, multiple contusions and ecchymoses BUE, skin tear right upper forearm, 3 cm x 2 cm scabbed lesion left upper arm. HEART: regular rate and rhythm, S1-S2 without murmur, no rubs or gallops, brisk capillary refill, trace bilateral lower extremity edema LUNGS: clear to auscultation bilaterally, no coarseness crackles or wheezing, no cough present CHEST: Symmetrical movement, no accessory muscle use, no pain to AP and lateral compression. ABDOMEN: Soft, no distention, no epigastric or abdominal tenderness on palpation, no guarding or peritoneal signs, urostomy alida is pink training yellow urine, no flank or suprapubic tenderness, subxiphoid and small umbilical hernias, active bowel tones. BACK: Normal curvature, nontender to palpation, no CVA tenderness on percussi on. EXTREMITIES: Pain on palpation anterior left hip, distal CMS intact. NEUROLOGIC: AAO to person, place and time, no focal neurologic deficits, cranial nerves II-XII grossly intact , sensory exam intact to light touch. PSYCH: alert, cognitive function intact, good eye contact, stable mood with co ngruent affect Objective Labs Result Diagrams: 10/31/19 14:54 10/31/19 14:54 Labs: Laboratory Results - last 24 hr 10/31/19 10/31/19 10/31/19 14:05 14:54 14:54 WBC 7.7 RBC 3.84 L Hgb 9.5 L Hct 29.1 L MCV 75.9 L MCH 24.8 L MCHC 32.7 RDW 15.5 H Plt Count 274 Neut % (Auto) 74.5 Lymph % (Auto) 10.2 L [place] % (Auto) 9.5 Eos % (Auto) 5.2 H Baso % (Auto) 0.6 Neut # (Auto) 5700 Lymph # (Auto) 800 L [place] # (Auto) 700 Eos # (Auto) 400 Baso # (Auto) 0 PT 16.4 H INR 1.4 H APTT 34 D Sodium Potassium Chloride Carbon Dioxide BUN Creatinine Estimated GFR BUN/Creatinine Ratio Glucose Calcium Magnesium Total Bilirubin AST ALT Alkaline Phosphatase Total Protein Albumin Globulin Albumin/Globulin Ratio Urine Color Yellow Urine Appearance Sl cloudy Urine pH 7.0 Ur Specific [place] 1.015 Urine Protein Negative Urine Glucose (UA) Negative Urine Ketones Negative Urine Occult Blood 1+ H Urine Nitrate Positive Urine Bilirubin Negative Urine Urobilinogen 0.2 Ur Leukocyte Esterase 1+ H Urine RBC 5-10/hpf H Urine WBC 5-10/hpf H Ur Squamous Epith Cells 0-1 /hpf Urine Bacteria Many (>30) H Ur Culture Indicated? Specimen cultured COVID-19 PCR 10/31/19 10/31/19 10/31/19 14:54 14:54 16:42 WBC RBC Hgb Hct MCV MCH MCHC RDW Plt Count Neut % (Auto) Lymph % (Auto) [place] % (Auto) Eos % (Auto) Baso % (Auto) Neut # (Auto) Lymph # (Auto) [place] # (Auto) Eos # (Auto) Baso # (Auto) PT INR APTT Sodium 124 L Potassium 4.8 Chloride 89 L Carbon Dioxide 31 BUN 13 Creatinine 0.84 Estimated GFR > 60.0 BUN/Creatinine Ratio 15.5 Glucose 114 H Calcium 8.5 Magnesium 1.8 Total Bilirubin 0.3 AST 37 ALT 14 Alkaline Phosphatase 96 Total Protein 6.4 Albumin 3.6 Globulin 2.8 Albumin/Globulin Ratio 1.3 Urine Color Urine Appearance Urine pH Ur Specific [place] Urine Protein Urine Glucose (UA) Urine Ketones Urine Occult Blood Urine Nitrate Urine Bilirubin Urine Urobilinogen Ur Leukocyte Esterase Urine RBC Urine WBC Ur Squamous Epith Cells Urine Bacteria Ur Culture Indicated? COVID-19 PCR Negative Assessment & Plan Assessment & Plan narrative: This is an 84-year-old gentleman who sustained a slip and fall on linoleum floor landing on his left hip sustaining a mildly displaced and impacted femoral neck fracture of the left hip. 1. Acute closed left femoral neck fracture, present on admission, active. -Patient sustained a nonsyncopal slip and fall or his socks on and linoleum floor landing on his left hip sustaining an impacted minimally displaced femoral neck fracture. -Dr. Lepe is contacted through through the emergency department and agrees to consult, we have appreciate her evaluation and recommendations. -patient likely will not have surgery tomorrow with his last dose of Eliquis being this morning and elevated PT at 16.4 and INR at 1.4. His Eliquis and aspirin are held. -ordered Tylenol 975 mg every 8 hours routinely. -ordered tramadol 50 mg every 6 hours as needed for pain -ordered morphine 2 mg every 4 hours as needed for breakthrough pain. -for the surgical orders per Dr. Lepe. 2. Hyponatremia, chronic, present on admission, active -patient with chronic hyponatremia, sodium is 124 on admission labs. Baseline sodium has been 127 to 135. -IV normal saline at 100 cc/hour. -will recheck chemistries in the morning 3. Anemia, chronic, present on admission, active. -patient with history of chronic anemia, hemoglobin is 9.5 and hematocrit 29.1 with MCV 75.9 and MCH of 24.8. Baseline hemoglobin typically appears to run between 10 and 12 g -patient likely to drop his H&H as result of his hip fracture and anticoagulatio n. -will closely follow blood count and transfuse as indicated. -will obtain iron panel 4. Essential hypertension, chronic, present on admission. -patient with well controlled blood pressure, 140/72 upon arrival to the ER. -continue metoprolol, amlodipine and losartan. 5. CAD history of NV, chronic, stable. -Patient has no chest pain, palpitations or shortness of breath -hold aspirin 81 mg daily as well as Eliquis 5 mg twice daily. Patient's last dose of Eliquis was this morning. -continue atorvastatin 40 mg daily. 6. Long-term anticoagulation with Eliquis, present on admission. Chronic. -multiple areas of bruising bilateral arms. -Eliquis being held pending surgical repair of his hip. 7. Secondary hypothyroidism, chronic, stable -Patient previously had thyroid cancer status post thyroidectomy. -patient is currently taking levothyroxine 200 mcg daily 8. Normocytic normochromic anemia, present on admission. Chronic. -Likely anemia of chronic disease. -current hemoglobin and hematocrit are 12.4 and 36.0 consistent with prior admission -No overt signs of bleeding. -Continue to monitor hemoglobin and hematocrit closely. 9. Peripheral neuropathy, chronic, stable. -patient reports normal sensation on exam today. -Continue home Lyrica 150 mg 3 times daily. 10. History of bladder and prostate cancer status post ileocecal conduit and urostomy, chronic, stable -urinalysis finds cloudy urine that is positive for leukocyte esterase, nitrates RBCs WBCs and many bacteria. -no complaints of abdominal pain, fevers or chills. White count of 7.7 with no evidence of infection. -the patient is asymptomatic and sample obtained from his ileostomy bag, no antibiotic therapy at this time. VTE prophylaxis: Bilateral SCDs, anticoagulation held pending surgery IV fluid: Normal saline 100 cc/hour Diet: Heart healthy Code status: FULL CODE, patient designates his Yael to be his surrogate decision maker. The patient is admitted to the hospital pending surgical management of his left hip fracture. The patient is admitted as an inpatient with expected length of stay to be greater than 2 midnights. COVID-19 COVID-19 status: Negative Result date/Date tested (Pos, Neg/Pending): 10/31/19 Scores GCS Tish coma scale eye opening: Spontaneous Tish coma scale verbal response: Orientated Tish coma scale motor response: Obey commands [place] coma scale total score: 15
[2019-10-31] MEDS: SODIUM CHLORIDE 0.9% 1,000 ML 100 ML IV (20:50)
[2019-10-31] MEDS: PREGABALIN 75 MG CAPSULE 150 MG PO (21:58)
[2019-10-31] MEDS: ATORVASTATIN 20 MG TABLET 40 MG PO (21:58)
[2019-10-31] MEDS: DOCUSATE 100 MG CAPSULE PO (21:59)
[2019-10-31] MEDS: ACETAMINOPHEN 325 MG TABLET 975 MG PO (22:00)
[2019-10-31] MEDS: TRAMADOL 50 MG TABLET PO (22:01)
[2019-11-01] VITALS (8 sets, daily range): BP systolic 104–124; BP diastolic 58–73; PULSE 58–69; RESP 14–18; TEMP 36.2–37.2; O2SAT 93–98
[2019-11-01] MEDS: SODIUM CHLORIDE 0.9% 1,000 ML 100 ML IV (05:34)
[2019-11-01 05:54] LABS: INR 1.2 (0.9-1.3); Prothrombin Time 13.8 SECONDS (10.1-12.7)
[2019-11-01 05:55] LABS: Add Manual Diff / Slide Review NO; Basophils Absolute Auto 100 /uL (0-100); Basophils Percent Auto 0.8 % (0-2); Eosinophils Absolute Auto 600 /uL (0-450); Eosinophils Percent Auto 8.2 % (2-4); Hematocrit 28.5 % (41-53); Hemoglobin 9.2 g/dL (13.5-17.5); Lymphocytes Absolute Auto 1000 /uL (1100-4500); Lymphocytes Percent Auto 14.4 % (25-40); Mean Corpuscular HGB Conc 32.2 % (30-36); Mean Corpuscular Hemoglobin 24.5 PG (26-34); Monocytes Absolute Auto 1000 /uL (0-900); Monocytes Percent Auto 13.9 % (3-14); Neutrophils Absolute Auto 4400 /uL (1500-7000); Neutrophils Percent Auto 62.7 % (50-75); Platelet Count 260 X10^3/uL (150-400); Red Blood Cell Count 3.75 X10^6/uL (4.5-5.9)
[2019-11-01 05:57] LABS: PTT Partial Thromboplastin Tim 33 SECONDS (26.4-36.2)
[2019-11-01 05:58] LABS: BUN Creatinine Ratio 16.9 (6-22); Blood Urea Nitrogen 14 mg/dL (9-20); Calcium 8.4 mg/dL (8.4-10.2); Carbon Dioxide 26 mmol/L (22-32); Chloride 94 mmol/L (98-107); Estimated Glomerular Filt Rate > 60.0 mL/min (>60); Glucose 102 mg/dL (80-110); HEMOLYSIS < 15 (0-50); Potassium 4.6 mmol/L (3.4-5.1); Sodium 126 mmol/L (137-145)
[2019-11-01 06:15] LABS: HEMOLYSIS < 15 (0-50); Iron 30 ug/dL (49-181)
[2019-11-01 06:26] LABS: Percent Iron Saturation 9 % (20-50); Total Iron Binding Capacity 330 ug/dL (261-462); Transferrin 248 mg/dL (206-381)
[2019-11-01] MEDS: ACETAMINOPHEN 325 MG TABLET 975 MG PO ×3 (07:55→23:48)
[2019-11-01] MEDS: LEVOTHYROXINE 100 MCG TABLET 200 MCG PO (07:55)
[2019-11-01] MEDS: AMLODIPINE 5 MG TABLET 10 MG PO (07:58)
[2019-11-01] MEDS: PREGABALIN 75 MG CAPSULE 150 MG PO ×3 (07:58→21:16)
[2019-11-01] MEDS: DOCUSATE 100 MG CAPSULE PO ×2 (07:58→21:16)
[2019-11-01] MEDS: METOPROLOL ER 25 MG TABLET PO (07:59)
[2019-11-01 09:02] LABS: Ferritin 8 ng/mL (18-464)
[2019-11-01] MEDS: TRAMADOL 50 MG TABLET PO ×2 (12:02→17:30)
--- NOTE | 2019-11-01 12:14 | CM.DANOTE ---
DCP Assessment: EMR reviewed: Patient is an 84 yr old male who was admitted after a GLF and L hip fracture. Cm/RN met with patient at the bedside and explained role. Patient was alert and oriented x3 at time of visit. Plan of care for patient is to have surgical consult to get patient ready for surgical repair of lt hip. When discussing D/C plan patient stated he is open to going to SNF after surgery and would prefer [facility]. Cm/ RN contacted Alma Rosa at [facility] and she is reviewing for possible admission later this week. Patient has FWW and cane at home. Patient is Independent and drives at baseline. I: Medicaid and Plan: D/C to SNF after surgery and cleared by PT and OT. if cleared to go home then [facility]. Called [facility] they are reviewing for possible admission... need PASRR done or F2F when D/C plan is determined. Kailee Lepe RN Discharge Planning/Care Management CM Discharge Assessment Start: 11/01/19 12:10 Freq: Status: Active Protocol: Document 11/01/19 12:10 (Rec: 11/01/19 12:14 [id number]) Discharge Planning Assessment Assigned Anchor Tacker Kailee Lepe RN DPOA/Assigned Designee Name Yael Albarran () Contact Information [phone] Advance Directives? No Advance Directives on File No History Provided By Patient,Medical Record Has Patient been admitted in last 30 No days? Prior Living Arrangements House Household Members spouse Type of transporation used prior to Drives own vehicle admit Independent with ADL's Yes Is patient alert and oriented? Yes Caregiver for Another No DME Already Rented / Owned FWW / Walker,Cane Comment has a FWW and Cane at home but doesn't use them regularly Patient/Family Preference [facility] Facility Discharge Plan [facility] Facility Transportation Arrangement Spouse and/or family to provide transport home. Referrals Initiated [facility] Additional Comment [facility] at 1145 today If patient plan is home with home health Possible HH with [facility] : Has signed face to face form been completed? Medicare Choice List Provided Yes SNF/HH Preference [facility] is preferred SNF Choice... Contact Name/ (September) Has Agency SNF been contacted Yes Comment Contacted and they are reviewing for possible admission. Whiteboard Updated in Patient Room with Yes name and ext. # of Anchor Tacker Review Status In Process Next Review Type Continued Stay Review
--- NOTE | 2019-11-01 13:38 | DIET.PN ---
Dietary Progress Note Assessment: 84y M admitted for GLF resulting in L hip fracture. Pt broke R hip last year. Nutrition consulted for osteoporotic hip fracture. HT: 177.8cm WT: 84kg BMI: 26.6 Usual Day: B: toast c butter and jelly, 1/2 banana, or cereal c milk and 2c coffee L: canned T[employer] chunky soup (chicken noodle, beef noodle) or sandwich c ham and [place] cheese D: Lean Cuisine microwave meal (usually has 8-10 flavors on hand) Sn: cookie Drinks: diet soda (Coke, Pepsi), Crystal Light sweet tea Pt takes MVI daily and iron pill occasionally Pt has diet reliant on ultraprocessed foods c low nutrient density. Pt not a regular dairy eater and has diet low in F/V so likely deficient in calcium as well as Vitamin D contributing to osteoporotic fracture. Nutrition Diagnosis: Osteoporosis related hip fracture r/t reliance on highly processed food deficient in nutrients calcium and vitamin D aeb pt's second hip fracture in 1y, pt not regular dairy eater, does not supplement with calcium or Vit D. Interventions: 1. Discussed importance of calcium-rich diet for bone health including food-forms and supplement form. Collaborated on how pt can incorporate more calcium in diet. Pt willing to take 1/2 calcium supplement (500mg per day), choose cheddar cheese over [place] cheese, purchase low-fat mozzarella cheese sticks as snacks, and eat more yogurt c breakfast. 2. Discussed role of Vitamin D in bone health. Pt does not supplement beyond a MVI and does not go out in the sun to avoid skin cancer. Recc pt start supplementing c Vit D at least during winter months, recc 2,000IU. Please include Vitamin D for d/c planning. 3. Pt has high need for calcium and protein to promote healing after surgery. Pt amenable to high pro/high calcium smoothie: yogurt, 1/2 banana, berries, will send one today and resume once returned from surgery until d/c. Diet Order: Heart Healthy EER: 90g PRO (1.1g/kg to promote healing) Monitoring/Evaluations: smoothie tolerance
--- NOTE | 2019-11-01 14:17 | PM.PN.1 ---
Subjective Subjective Date Patient Seen: 11/01/19 Interval history: The patient is a 84-year-old male who was admitted to the hospital following around level fall. He sustained an impacted left femoral neck fracture. He was anticoagulated on Eliquis which has been held. It is anticipated that he will proceed to the operating room tomorrow. Patient is known to be anemic. I he is fairly iron deficient. Will give him IV iron prior to his surgical procedure. Patient does not know why he is on Eliquis and will need to investigate this before resuming on this medication. He denies any shortness of breath or chest pain. He has no pain in his hip unless he moves. Otherwise he is anticipating surgery as described above Exam Vital Signs (past 8 hours): - 11/01/19 07:32 11/01/19 10:47 11/01/19 11:15 Temperature 97.2 F L 98.8 F Pulse Rate 58 L 62 60 Respiratory Rate 16 15 Blood Pressure 124/63 112/67 Pulse Oximetry 98 96 Oxygen Delivery Method Room Air Oxygen Flow Rate 0 Narrative Exam Narrative: Pleasant elderly male in no obvious distress Lungs: Clear to auscultation Cardiac exam: Regular rate and rhythm normal S1-S2 a 2/6 systolic ejection murmur Abdomen: Soft nontender nondistended, multiple well-healed midline surgical incisions noted, urostomy bag in place with clear urine Extremities: No edema Objective Labs Result Diagrams: 11/01/19 05:40 11/01/19 05:40 Labs: Laboratory Results - last 24 hr 10/31/19 10/31/19 10/31/19 14:05 14:54 14:54 WBC 7.7 RBC 3.84 L Hgb 9.5 L Hct 29.1 L MCV 75.9 L MCH 24.8 L MCHC 32.7 RDW 15.5 H Plt Count 274 Neut % (Auto) 74.5 Lymph % (Auto) 10.2 L [place] % (Auto) 9.5 Eos % (Auto) 5.2 H Baso % (Auto) 0.6 Neut # (Auto) 5700 Lymph # (Auto) 800 L [place] # (Auto) 700 Eos # (Auto) 400 Baso # (Auto) 0 PT 16.4 H INR 1.4 H APTT 34 D Sodium Potassium Chloride Carbon Dioxide BUN Creatinine Estimated GFR BUN/Creatinine Ratio Glucose Calcium Magnesium Iron TIBC % Saturation Transferrin Ferritin Total Bilirubin AST ALT Alkaline Phosphatase Total Protein Albumin Globulin Albumin/Globulin Ratio Urine Color Yellow Urine Appearance Sl cloudy Urine pH 7.0 Ur Specific [place] 1.015 Urine Protein Negative Urine Glucose (UA) Negative Urine Ketones Negative Urine Occult Blood 1+ H Urine Nitrate Positive Urine Bilirubin Negative Urine Urobilinogen 0.2 Ur Leukocyte Esterase 1+ H Urine RBC 5-10/hpf H Urine WBC 5-10/hpf H Ur Squamous Epith Cells 0-1 /hpf Urine Bacteria Many (>30) H Ur Culture Indicated? Specimen cultured COVID-19 PCR 10/31/19 10/31/19 10/31/19 14:54 14:54 16:42 WBC RBC Hgb Hct MCV MCH MCHC RDW Plt Count Neut % (Auto) Lymph % (Auto) [place] % (Auto) Eos % (Auto) Baso % (Auto) Neut # (Auto) Lymph # (Auto) [place] # (Auto) Eos # (Auto) Baso # (Auto) PT INR APTT Sodium 124 L Potassium 4.8 Chloride 89 L Carbon Dioxide 31 BUN 13 Creatinine 0.84 Estimated GFR > 60.0 BUN/Creatinine Ratio 15.5 Glucose 114 H Calcium 8.5 Magnesium 1.8 Iron TIBC % Saturation Transferrin Ferritin Total Bilirubin 0.3 AST 37 ALT 14 Alkaline Phosphatase 96 Total Protein 6.4 Albumin 3.6 Globulin 2.8 Albumin/Globulin Ratio 1.3 Urine Color Urine Appearance Urine pH Ur Specific [place] Urine Protein Urine Glucose (UA) Urine Ketones Urine Occult Blood Urine Nitrate Urine Bilirubin Urine Urobilinogen Ur Leukocyte Esterase Urine RBC Urine WBC Ur Squamous Epith Cells Urine Bacteria Ur Culture Indicated? COVID-19 PCR Negative 11/01/19 11/01/19 11/01/19 05:40 05:40 05:40 WBC 7.0 RBC 3.75 L Hgb 9.2 L Hct 28.5 L MCV 76.0 L MCH 24.5 L MCHC 32.2 RDW 15.0 H Plt Count 260 Neut % (Auto) 62.7 Lymph % (Auto) 14.4 L [place] % (Auto) 13.9 Eos % (Auto) 8.2 H Baso % (Auto) 0.8 Neut # (Auto) 4400 Lymph # (Auto) 1000 L [place] # (Auto) 1000 H Eos # (Auto) 600 H Baso # (Auto) 100 PT 13.8 H INR 1.2 APTT 33 Sodium 126 L Potassium 4.6 Chloride 94 L Carbon Dioxide 26 BUN 14 Creatinine 0.83 Estimated GFR > 60.0 BUN/Creatinine Ratio 16.9 Glucose 102 Calcium 8.4 Magnesium Iron TIBC % Saturation Transferrin Ferritin Total Bilirubin AST ALT Alkaline Phosphatase Total Protein Albumin Globulin Albumin/Globulin Ratio Urine Color Urine Appearance Urine pH Ur Specific [place] Urine Protein Urine Glucose (UA) Urine Ketones Urine Occult Blood Urine Nitrate Urine Bilirubin Urine Urobilinogen Ur Leukocyte Esterase Urine RBC Urine WBC Ur Squamous Epith Cells Urine Bacteria Ur Culture Indicated? COVID-19 PCR 11/01/19 11/01/19 05:40 05:40 WBC RBC Hgb Hct MCV MCH MCHC RDW Plt Count Neut % (Auto) Lymph % (Auto) [place] % (Auto) Eos % (Auto) Baso % (Auto) Neut # (Auto) Lymph # (Auto) [place] # (Auto) Eos # (Auto) Baso # (Auto) PT INR APTT Sodium Potassium Chloride Carbon Dioxide BUN Creatinine Estimated GFR BUN/Creatinine Ratio Glucose Calcium Magnesium Iron 30 L TIBC 330 % Saturation 9 L Transferrin 248 Ferritin 8 L Total Bilirubin AST ALT Alkaline Phosphatase Total Protein Albumin Globulin Albumin/Globulin Ratio Urine Color Urine Appearance Urine pH Ur Specific [place] Urine Protein Urine Glucose (UA) Urine Ketones Urine Occult Blood Urine Nitrate Urine Bilirubin Urine Urobilinogen Ur Leukocyte Esterase Urine RBC Urine WBC Ur Squamous Epith Cells Urine Bacteria Ur Culture Indicated? COVID-19 PCR Assessment & Plan Assessment & Plan narrative: Acute closed left femoral neck fracture, present on admission, active. -Patient sustained a nonsyncopal slip and fall or his socks on and linoleum floor landing on his left hip sustaining an impacted minimally displaced femoral neck fracture. -Dr. Lepe is contacted through through the emergency department and agrees to consult, we have appreciate her evaluation and recommendations. -patient likely will not have surgery tomorrow with his last dose of Eliquis being this morning and elevated PT at 16.4 and INR at 1.4. His Eliquis and aspirin are held. -ordered Tylenol 975 mg every 8 hours routinely. -ordered tramadol 50 mg every 6 hours as needed for pain -ordered morphine 2 mg every 4 hours as needed for breakthrough pain. -for the surgical orders per Dr. Lepe. -discontinue Eliquis, no aspirin at this time, SCDs for DVT prophylaxis, anticipate surgery tomorrow for 30 p.m. 2. Hyponatremia, chronic, present on admission, active -patient with chronic hyponatremia, sodium is 124 on admission labs. Baseline sodium has been 127 to 135. -will discontinue IV fluids, can resume when NPO -will obtain serum osmolality -will place on a 1200 cc fluid restriction -continue to monitor sodium closely 3. Anemia, chronic, present on admission, active. -patient with history of chronic anemia, hemoglobin is 9.5 and hematocrit 29.1 with MCV 75.9 and MCH of 24.8. Baseline hemoglobin typically appears to run between 10 and 12 g -patient likely to drop his H&H as result of his hip fracture and anticoagulation. -ferritin markedly low at 8 -will start IV iron 4. Essential hypertension, chronic, present on admission. -patient with well controlled blood pressure, 140/72 upon arrival to the ER. -continue metoprolol, amlodipine and losartan. 5. CAD history of [place], chronic, stable. -Patient has no chest pain, palpitations or shortness of breath -hold aspirin 81 mg daily as well as Eliquis 5 mg twice daily. Patient's last dose of Eliquis was this morning. -continue atorvastatin 40 mg daily. 6. Long-term anticoagulation with Eliquis, present on admission. Chronic. -multiple areas of bruising bilateral arms. -Eliquis being held pending surgical repair of his hip. -given anemia need to determine an etiology of need for Eliquis 7. Secondary hypothyroidism, chronic, stable -Patient previously had thyroid cancer status post thyroidectomy. -patient is currently taking levothyroxine 200 mcg daily 8. Normocytic normochromic anemia, present on admission. Chronic. -Likely anemia of chronic disease. -current hemoglobin and hematocrit are 12.4 and 36.0 consistent with prior admission -No overt signs of bleeding. -Continue to monitor hemoglobin and hematocrit closely. 9. Peripheral neuropathy, chronic, stable. -patient reports normal sensation on exam today. -Continue home Lyrica 150 mg 3 times daily. 10. History of bladder and prostate cancer status post ileocecal conduit and urostomy, chronic, stable -urinalysis finds cloudy urine that is positive for leukocyte esterase, nitrates RBCs WBCs and many bacteria. -no complaints of abdominal pain, fevers or chills. White count of 7.7 with no evidence of infection. -the patient is asymptomatic and sample obtained from his ileostomy bag, no antibiotic therapy at this time. VTE prophylaxis: Bilateral SCDs, anticoagulation held pending surgery IV fluid: saline lock Diet: Heart healthy Code status: FULL CODE, patient designates his Yael to be his surrogate decision maker. The patient is admitted to the hospital pending surgical management of his left hip fracture. The patient is admitted as an inpatient with expected length of stay to be greater than 2 midnights. COVID-19 COVID-19 status: Negative
--- NOTE | 2019-11-01 14:31 | P.HP_ITS ---
History of Present Illness History of Present Illness Date Patient Seen: 11/01/19 Time Patient Seen: 11:32 Date of Onset of Symptoms: 10/31/19 Chief complaint: Fall, L Hip pain Narrative: Don was at home when a his left foot got caught any tripped and fell and noted the acute onset of left hip pain. Does have a history of a prior fall and a right hip injury which was treated with the right unipolar back in October of last year. He notes that he is physically active on a normal basis in both he and his still drive. They live independently at home in 4 steps to get into his house. He is on a blood thinner for atrial fibrillation. Patient History Medical History Bladder cancer (Acute) Coronary artery disease (Acute) Hypertension (Acute) Hyponatremia (Acute) Hypothyroid (Acute) Kidney stones (Acute) Prostate cancer (Acute) Thyroid cancer (Acute) Surgical History H/O colectomy (Acute) H/O thyroidectomy (Acute) History of appendectomy (Acute) History of urostomy (Acute) Family & Social History Family History Father Alcoholism Mother Alcoholism Social History: household members spouse Prior Living Arrangements House Safety & Behavioral: Feels Safe in Current Yes Environment Been Physically Hurt or No Threatened By a Person Suicidal Ideation Description None Suicide Plan Description No Plan Tobacco & Substance use: Smoking Status Former smoker alcohol intake former alcohol intake frequency other Substance Use Type does not use Meds Home Medications and Allergies Home Medications Medication Instructions Recorded Confirmed Type aspirin 1 tab PO DAILY 11/07/17 10/31/19 History atorvastatin 1 tab PO BEDTIME 11/07/17 10/31/19 History docusate calcium 1 cap PO BEDTIME 11/07/17 10/31/19 History losartan 100 mg PO QPM 11/07/17 10/31/19 History pregabalin 1 cap PO TID 11/07/17 10/31/19 History amlodipine 1 tab PO DAILY 06/11/18 10/31/19 History diphenhydramine-acetaminophen 1 tab PO BEDTIME PRN 06/11/18 10/31/19 History [Acetaminophen PM] docusate sodium 100 mg PO BID 06/11/18 10/31/19 History meclizine 25 mg PO Q8H PRN 06/11/18 10/31/19 History metoprolol succinate 1 tab PO DAILY 06/11/18 10/31/19 History sennosides [senna] 8.6 mg PO BID 06/11/18 10/31/19 History levothyroxine 200 mcg PO 0708/09/18 10/31/19 History apixaban [Eliquis] 5 mg PO DAILY 10/31/19 10/31/19 History fluticasone propionate [Flonase 1 spray INTRANASAL BID 10/31/19 10/31/19 History Allergy Relief] ed-od-HS-vit [id number] 1 cap PO DAILY 10/31/19 10/31/19 History [Daily Multivitamin] Allergies Allergy/AdvReac Type Severity Reaction Status Date / Time No Known Drug Allergies Allergy Verified 11/07/17 20:47 Review of Systems Review of Systems Narrative: Was not short of breath or lightheaded prior to the fall, no recent chest pain no specific dizziness or weakness Exam Vital Signs (past 8 hours): - 11/01/19 07:32 11/01/19 10:47 11/01/19 11:15 Temperature 97.2 F L 98.8 F Pulse Rate 58 L 62 60 Respiratory Rate 16 15 Blood Pressure 124/63 112/67 Pulse Oximetry 98 96 Oxygen Delivery Method Room Air Oxygen Flow Rate 0 Narrative Exam Narrative: HEENT is benign lungs are clear cor regular rate and rhythm abdomen soft and benign, he has externally rotated and shortened left leg and significant pain with attempted range of motion the left hip. He is able to fire his toe flexors and extensors in bilateral legs and his calfs are soft bilaterally. Bilateral upper extremities are remarkable for multiple contusions and abrasions Objective Labs Result Diagrams: 11/01/19 05:40 11/01/19 05:40 Labs: Laboratory Results - last 24 hr 10/31/19 10/31/19 10/31/19 14:05 14:54 14:54 WBC 7.7 RBC 3.84 L Hgb 9.5 L Hct 29.1 L MCV 75.9 L MCH 24.8 L MCHC 32.7 RDW 15.5 H Plt Count 274 Neut % (Auto) 74.5 Lymph % (Auto) 10.2 L [place] % (Auto) 9.5 Eos % (Auto) 5.2 H Baso % (Auto) 0.6 Neut # (Auto) 5700 Lymph # (Auto) 800 L [place] # (Auto) 700 Eos # (Auto) 400 Baso # (Auto) 0 PT 16.4 H INR 1.4 H APTT 34 D Sodium Potassium Chloride Carbon Dioxide BUN Creatinine Estimated GFR BUN/Creatinine Ratio Glucose Calcium Magnesium Iron TIBC % Saturation Transferrin Ferritin Total Bilirubin AST ALT Alkaline Phosphatase Total Protein Albumin Globulin Albumin/Globulin Ratio Urine Color Yellow Urine Appearance Sl cloudy Urine pH 7.0 Ur Specific [place] 1.015 Urine Protein Negative Urine Glucose (UA) Negative Urine Ketones Negative Urine Occult Blood 1+ H Urine Nitrate Positive Urine Bilirubin Negative Urine Urobilinogen 0.2 Ur Leukocyte Esterase 1+ H Urine RBC 5-10/hpf H Urine WBC 5-10/hpf H Ur Squamous Epith Cells 0-1 /hpf Urine Bacteria Many (>30) H Ur Culture Indicated? Specimen cultured COVID-19 PCR 10/31/19 10/31/19 10/31/19 14:54 14:54 16:42 WBC RBC Hgb Hct MCV MCH MCHC RDW Plt Count Neut % (Auto) Lymph % (Auto) [place] % (Auto) Eos % (Auto) Baso % (Auto) Neut # (Auto) Lymph # (Auto) [place] # (Auto) Eos # (Auto) Baso # (Auto) PT INR APTT Sodium 124 L Potassium 4.8 Chloride 89 L Carbon Dioxide 31 BUN 13 Creatinine 0.84 Estimated GFR > 60.0 BUN/Creatinine Ratio 15.5 Glucose 114 H Calcium 8.5 Magnesium 1.8 Iron TIBC % Saturation Transferrin Ferritin Total Bilirubin 0.3 AST 37 ALT 14 Alkaline Phosphatase 96 Total Protein 6.4 Albumin 3.6 Globulin 2.8 Albumin/Globulin Ratio 1.3 Urine Color Urine Appearance Urine pH Ur Specific [place] Urine Protein Urine Glucose (UA) Urine Ketones Urine Occult Blood Urine Nitrate Urine Bilirubin Urine Urobilinogen Ur Leukocyte Esterase Urine RBC Urine WBC Ur Squamous Epith Cells Urine Bacteria Ur Culture Indicated? COVID-19 PCR Negative 11/01/19 11/01/19 11/01/19 05:40 05:40 05:40 WBC 7.0 RBC 3.75 L Hgb 9.2 L Hct 28.5 L MCV 76.0 L MCH 24.5 L MCHC 32.2 RDW 15.0 H Plt Count 260 Neut % (Auto) 62.7 Lymph % (Auto) 14.4 L [place] % (Auto) 13.9 Eos % (Auto) 8.2 H Baso % (Auto) 0.8 Neut # (Auto) 4400 Lymph # (Auto) 1000 L [place] # (Auto) 1000 H Eos # (Auto) 600 H Baso # (Auto) 100 PT 13.8 H INR 1.2 APTT 33 Sodium 126 L Potassium 4.6 Chloride 94 L Carbon Dioxide 26 BUN 14 Creatinine 0.83 Estimated GFR > 60.0 BUN/Creatinine Ratio 16.9 Glucose 102 Calcium 8.4 Magnesium Iron TIBC % Saturation Transferrin Ferritin Total Bilirubin AST ALT Alkaline Phosphatase Total Protein Albumin Globulin Albumin/Globulin Ratio Urine Color Urine Appearance Urine pH Ur Specific [place] Urine Protein Urine Glucose (UA) Urine Ketones Urine Occult Blood Urine Nitrate Urine Bilirubin Urine Urobilinogen Ur Leukocyte Esterase Urine RBC Urine WBC Ur Squamous Epith Cells Urine Bacteria Ur Culture Indicated? COVID-19 PCR 11/01/19 11/01/19 05:40 05:40 WBC RBC Hgb Hct MCV MCH MCHC RDW Plt Count Neut % (Auto) Lymph % (Auto) [place] % (Auto) Eos % (Auto) Baso % (Auto) Neut # (Auto) Lymph # (Auto) [place] # (Auto) Eos # (Auto) Baso # (Auto) PT INR APTT Sodium Potassium Chloride Carbon Dioxide BUN Creatinine Estimated GFR BUN/Creatinine Ratio Glucose Calcium Magnesium Iron 30 L TIBC 330 % Saturation 9 L Transferrin 248 Ferritin 8 L Total Bilirubin AST ALT Alkaline Phosphatase Total Protein Albumin Globulin Albumin/Globulin Ratio Urine Color Urine Appearance Urine pH Ur Specific [place] Urine Protein Urine Glucose (UA) Urine Ketones Urine Occult Blood Urine Nitrate Urine Bilirubin Urine Urobilinogen Ur Leukocyte Esterase Urine RBC Urine WBC Ur Squamous Epith Cells Urine Bacteria Ur Culture Indicated? COVID-19 PCR X-rays show a displaced left femoral neck fracture Assessment & Plan Assessment & Plan narrative: Displaced left femoral neck fracture I have recommended a left hip partial hip replacement with a unipolar. Procedure alternatives risks benefits and complications were discussed in detail with the patient. Unfortunately he is on Eliquis and so we will need to wait at least 48 hours prior to proceeding with surgical intervention. We discussed posterior hip precautions likely will be able to get him full weight-bearing postoperat ively and anticipate he can be discharged to home.
[2019-11-01] MEDS: IRON SUCROSE 200 MG in SODIUM CHLORIDE 0.9% 100 ML 220 ML IV (15:32)
[2019-11-01] MEDS: LOSARTAN 50 MG TABLET 100 MG PO (16:59)
[2019-11-01] MEDS: MORPHINE 2 MG/ML INJ IV (18:56)
[2019-11-01] MEDS: ATORVASTATIN 20 MG TABLET 40 MG PO (21:16)
[2019-11-02] VITALS (8 sets, daily range): BP systolic 94–114; BP diastolic 52–64; PULSE 60–78; RESP 14–18; TEMP 35.9–37.9; O2SAT 90–95
[2019-11-02 05:35] LABS: Add Manual Diff / Slide Review NO; Basophils Absolute Auto 100 /uL (0-100); Basophils Percent Auto 0.8 % (0-2); Eosinophils Absolute Auto 600 /uL (0-450); Eosinophils Percent Auto 7.6 % (2-4); Hematocrit 28.1 % (41-53); Hemoglobin 9.3 g/dL (13.5-17.5); Lymphocytes Absolute Auto 900 /uL (1100-4500); Lymphocytes Percent Auto 10.1 % (25-40); Mean Corpuscular HGB Conc 33.1 % (30-36); Mean Corpuscular Volume 75.5 fL (80-100); Monocytes Absolute Auto 1100 /uL (0-900); Monocytes Percent Auto 12.7 % (3-14); Neutrophils Absolute Auto 5900 /uL (1500-7000); Neutrophils Percent Auto 68.8 % (50-75); Platelet Count 253 X10^3/uL (150-400); Red Blood Cell Count 3.72 X10^6/uL (4.5-5.9); White Blood Cell Count 8.5 X10^3/uL (4.5-11.0)
[2019-11-02 05:41] LABS: BUN Creatinine Ratio 21.3 (6-22); Blood Urea Nitrogen 20 mg/dL (9-20); Calcium 8.5 mg/dL (8.4-10.2); Carbon Dioxide 25 mmol/L (22-32); Chloride 95 mmol/L (98-107); Estimated Glomerular Filt Rate > 60.0 mL/min (>60); Glucose 97 mg/dL (80-110); HEMOLYSIS < 15 (0-50); Potassium 4.7 mmol/L (3.4-5.1); Sodium 126 mmol/L (137-145)
[2019-11-02] MEDS: LEVOTHYROXINE 100 MCG TABLET 200 MCG PO (06:36)
[2019-11-02] MEDS: ACETAMINOPHEN 325 MG TABLET 975 MG PO ×3 (10:03→23:54)
[2019-11-02] MEDS: DOCUSATE 100 MG CAPSULE PO ×2 (10:04→20:38)
[2019-11-02] MEDS: METOPROLOL ER 25 MG TABLET PO (10:04)
[2019-11-02] MEDS: AMLODIPINE 5 MG TABLET 10 MG PO (10:05)
[2019-11-02] MEDS: MULTIVITAMIN 1 TABLET 1 TAB PO (10:05)
[2019-11-02] MEDS: CALCIUM CARB/VIT D3 500/200 TABLET 1 EACH PO ×2 (10:06→18:10)
[2019-11-02] MEDS: PREGABALIN 75 MG CAPSULE 150 MG PO ×3 (10:06→20:38)
--- NOTE | 2019-11-02 10:43 | P.PN_ITS ---
Subjective Subjective Date Patient Seen: 11/02/19 Interval history: Francisco J Albarran is an 84-year-old male with a past medical history significant for coronary artery disease, hypertension, hyperlipidemia, bladder cancer status post ileocecal conduit with urostomy, prostate cancer, thyroid cancer status post thyroidectomy with secondary hypothyroidism, nephrolithiasis, vertigo, peripheral neuropathy and long-term anticoagulation who presented to the ED with left hip pain after ground level fall.? The patient is resting in bed comfortably. He endorses sharp pain of left hip w ith position changes. He has no other complaints and denies headache, cough, shortness of breath, chest pain, abdominal pain, nausea, vomiting, fever, chills, dysuria, diarrhea or constipation. He is voiding and eliminating without difficulty. Exam Vital Signs (past 8 hours): - 11/02/19 04:35 11/02/19 07:41 Temperature 98.8 F 97.7 F Pulse Rate 68 61 Respiratory Rate 14 16 Blood Pressure 110/54 L 106/62 Pulse Oximetry 91 94 Oxygen Delivery Method Room Air Oxygen Flow Rate 0 Narrative Exam Narrative: General: Elderly gentleman sitting in bed and in no acute distress, well- developed, well-nourished, appropriately interactive. HEENT: Normocephalic, atraumatic. External ears without defect. Pupils equal, round, and reactive to light. Anicteric sclerae, moist conjunctivae, and no lid lag. Oropharynx free of erythema and cobble stoning with moist mucosa. Neck: Supple with full range of motion. No lymphadenopathy or thyromegaly. Cardiovascular: Regular rate and rhythm without murmurs, rubs, or gallops appreciated Pulmonary: Clear to auscultation bilaterally without crackles, wheezes, or rhonchi. Normal respiratory effort with no use of accessory muscles. Abdomen: Soft, bowel sounds present, nontender, nondistended. No hepatosplenomegaly or masses appreciated. Ostomy in place with pink stoma. Extremities: No clubbing, cyanosis, or edema. Left leg slightly internally rotated and shortened. Skin: Normal temperature, turgor, and texture; no rash, ulcers, or subcutaneous nodules appreciated. Neurological: Cranial nerves grossly intact. Psychiatric: Normal mood and affect. Alert and oriented to person, place, and time. Objective Labs Result Diagrams: 11/02/19 05:05 11/02/19 05:05 Labs: Laboratory Results - last 24 hr 11/02/19 11/02/19 05:05 05:05 WBC 8.5 RBC 3.72 L Hgb 9.3 L Hct 28.1 L MCV 75.5 L MCH 25.0 L MCHC 33.1 RDW 15.0 H Plt Count 253 Neut % (Auto) 68.8 Lymph % (Auto) 10.1 L [place] % (Auto) 12.7 Eos % (Auto) 7.6 H Baso % (Auto) 0.8 Neut # (Auto) 5900 Lymph # (Auto) 900 L [place] # (Auto) 1100 H Eos # (Auto) 600 H Baso # (Auto) 100 Sodium 126 L Potassium 4.7 Chloride 95 L Carbon Dioxide 25 BUN 20 Creatinine 0.94 Estimated GFR > 60.0 BUN/Creatinine Ratio 21.3 Glucose 97 Calcium 8.5 Assessment & Plan Assessment & Plan narrative: Francisco J Albarran is an 84-year-old male with a past medical history significant for bladder cancer status post ileocecal conduit with urostomy, prostate cancer, thyroid cancer status post thyroidectomy, hypothyroidism, nephrolithiasis, coronary artery disease, hypertension, vertigo, peripheral neuropathy and long- term anticoagulation who presented to the with left hip pain after ground level fall.? 1. Acute pathological left femoral neck fracture, present on admission. Active. -Patient sustained a nonsyncopal slip and fall or his socks on linoleum floor landing on his left hip sustaining an impacted minimally displaced femoral neck fracture. -Consulted orthopedic surgery, Dr. Lepe, who plans to surgically repair left hip today. Continue postoperative, pain and VTE prophylaxis per ortho. -Held Eliquis and aspirin pending surgical repair of left hip. -Continue Tylenol 975 mg every 8 hours,?tramadol 50 mg every 6 hours as needed for mild to moderate pain and?morphine 2 mg every 4 hours as needed for severe breakthrough pain.-Continue calcium and vitamin D3 supplementation. Patient will need to be treated for osteoporosis as an outpatient per PCP or ortho. 2. Hyponatremia, acute on chronic, present on admission. Active. -Patient with chronic hyponatremia with?baseline sodium level 127 to 135. Initial sodium 124 and improving now 126.? -Discontinue IV fluids and may be resumed temporarily when NPO for surgery. -Ordered serum osmolality, pending.? -Continue 1.2 L fluid restriction. -Continue to monitor sodium closely 3. Acute blood loss anemia on anemia of chronic disease, present on admission. Active. -Hemoglobin 9.5 and hematocrit 29.1 with MCV 75.9 and MCH of 24.8.? Baseline hemoglobin typically appears to run between 10 and 12. -Ferritin markedly low at 8 and iron panel demonstrates iron deficiency likely due to acute blood loss. Received Venofer 200 mg IV x 1. Consider starting iron supplementation.-Continue to monitor H&H closely. Transfusion goal hemoglobin < 8.0.? 4. Hypertension, chronic, present on admission. Stable. -Patient with well controlled blood pressure, 140/72 upon arrival to the ER. -Continue amlodipine 10 mg daily, losartan 100 mg daily in the evening,?and metoprolol succinate 25 mg daily. 5. CAD status post [place], chronic, present on admission. Stable. -Patient has no chest pain, palpitations or shortness of breath. -Held aspirin 81 mg daily and Eliquis 5 mg twice daily pending surgical repair of left hip.? -Continue home atorvastatin 40 mg daily. 6. ?Long-term anticoagulation with Eliquis, present on admission.? Chronic. -Unclear reason for anticoagulation. No history of atrial fibrillation, blood clots, PAD/PVD. May be for VTE prophylaxis in the setting of multiple previous cancers now presumed to be in remission? -Eliquis being held pending surgical repair of his left hip and given anemia and now fall will need to determine etiology and need for continued Eliquis before resuming. 7. Secondary hypothyroidism, chronic, present on admission. Stable. -Patient previously had thyroid cancer status post thyroidectomy. -Continue home levothyroxine 200 mcg daily. 8. Peripheral neuropathy, chronic, present on admission. Stable. -Continue home Lyrica 150 mg 3 times daily. 9. History of bladder and prostate cancer status post ileocecal conduit and urostomy, chronic, present on admission. Stable -Urine culture growing 2 colonies of gram negative bacilli.?However, patient with no complaints of abdominal pain, fevers or chillsand?WBC normal, therefore likely colonized and physician relations representative of asymptomatic bactiuria.? No antibiotic therapy warranted at this time.? Code status: Full code. Patient designates his Yael to be his surrogate decision maker.? VTE prophylaxis:? Bilateral SCDs, anticoagulation held pending surgery.? Disposition: Patient will likely need senior care for continued rehabilitation once?mobilizing.
--- NOTE | 2019-11-02 10:48 | CM.DPC ---
DCP Cont: Per MD during bedside rounding on pt, pt scheduled by Ortho to have surgical procedure/repair on his hip today around 1615 and pt agreeable and will be NPO for surg. SW updated pt bedside on acceptance at [facility] when stable for discharge if pt still needing SNF at d/c and pt agreeable. PASRR completed in anticipation of SNF. Plan: SW to follow tomorrow after surgery and PT eval and recommendations to determine SNF at [facility] vs Home with new referral to [facility] pending progress. New COVID needed if SNF closer to discharge as initial COVID was on 10/31/19 and just going into surgery this evening. Eboni Mario MSW
--- NOTE | 2019-11-02 10:55 | PC.NURSE ---
AM shift. pt AO and receptive to care. R AC PIV asymptomatic. Tele sinus rhythm with 1st degree block. [place], lungs clear. Urostomy and colostomy draining (pt managing with mild assistance). Skin tears to left upper extremity, I dressed with small allevyn. 2/10 pain reported to left hip, CMS+. Bedrest and pt calling appropriately and expressing needs.
--- NOTE | 2019-11-02 10:59 | PC.NURSE ---
Doctor Lepe call. Dr. Lepe called at 1058 to state pt's surgery will be scheduled for tomorrow (11/02) due to low blood count and eliquis. pt allowed to eat today and NPO at midnight.
[2019-11-02] MEDS: MORPHINE 2 MG/ML INJ IV (15:38)
[2019-11-02 16:08] LABS: Osmolality, Serum 266 mOsmol/kg (280-301)
[2019-11-02] MEDS: LOSARTAN 50 MG TABLET 100 MG PO (18:10)
--- NOTE | 2019-11-02 20:33 | PM.PN.1 ---
Subjective Subjective Date Patient Seen: 11/02/19 Time Patient Seen: 20:33 Interval history: Don notes that he is feeling okay does have ongoing left hip pain. On when he is basically just tired of waiting for surgery. Exam Vital Signs (past 8 hours): - 11/02/19 13:25 11/02/19 15:51 11/02/19 20:05 Temperature 96.7 F L 98.2 F Pulse Rate 71 74 Respiratory Rate 18 18 Blood Pressure 94/52 L 114/64 104/56 L Pulse Oximetry 95 92 Oxygen Delivery Method Room Air Oxygen Flow Rate 0 Narrative Exam Narrative: He is alert he is oriented, lungs are clear, abdomen soft and benign, left hip shows external rotation and pain with range of motion, calfs are soft bilaterally, he can fire his toe flexors and extensors. Objective Labs Result Diagrams: 11/02/19 05:05 11/02/19 05:05 Labs: Laboratory Results - last 24 hr 11/01/19 11/02/19 11/02/19 05:40 05:05 05:05 WBC 8.5 RBC 3.72 L Hgb 9.3 L Hct 28.1 L MCV 75.5 L MCH 25.0 L MCHC 33.1 RDW 15.0 H Plt Count 253 Neut % (Auto) 68.8 Lymph % (Auto) 10.1 L [place] % (Auto) 12.7 Eos % (Auto) 7.6 H Baso % (Auto) 0.8 Neut # (Auto) 5900 Lymph # (Auto) 900 L [place] # (Auto) 1100 H Eos # (Auto) 600 H Baso # (Auto) 100 Sodium 126 L Potassium 4.7 Chloride 95 L Carbon Dioxide 25 BUN 20 Creatinine 0.94 Estimated GFR > 60.0 BUN/Creatinine Ratio 21.3 Glucose 97 Serum Osmolality 266 L Calcium 8.5 Assessment & Plan Assessment & Plan narrative: Left femoral neck fracture. Anticoagulated with Eliquis. Plan is for left hip unipolar tomorrow morning. I told him the overall plan is to get him fixed up out of bed ambulating and hopefully home within the next couple of days.
[2019-11-02] MEDS: ATORVASTATIN 20 MG TABLET 40 MG PO (20:38)
[2019-11-03] VITALS (17 sets, daily range): BP systolic 84–128; BP diastolic 46–63; PULSE 65–110; RESP 12–20; TEMP 36–37.4; O2SAT 92–98; BMI 27.1
--- NOTE | 2019-11-03 | DI.RAD.S_ITS ---
PROCEDURE: XR HIP W PEL IF DONE LT 2V INDICATIONS: HIP FX REPAIR (UNIPOLAR) TECHNIQUE: AP pelvis with lateral view(s) of the left hip(s). COMPARISON: Located Within [facility], [place], XR HIP W PEL IF DONE LT 2V, 10/31/2019, 14:14. Located Within [facility], CR, XR HIP W PEL IF DONE RT 2V, 11/07/2017, 20:32. FINDINGS: Bones: No fractures or dislocations. Longstanding prior right total hip arthroplasty. New left total hip arthroplasty is now present, with a surgical drain overlying the operative bed. Pelvic ring appears intact. No suspicious bony lesions. Soft tissues: The visualized bowel gas pattern is normal. No suspicious soft tissue calcifications. IMPRESSION: New left total hip arthroplasty, normal alignment is stab wished. Prior right total hip arthroplasty, normal alignment maintained. Dictated by: Hitesh Terrell M.D. on 11/03/2019 at 11:34 Approved by: Hitesh Terrell M.D. on 11/03/2019 at 11:35
[2019-11-03 05:30] LABS: Add Manual Diff / Slide Review NO; Basophils Absolute Auto 100 /uL (0-100); Eosinophils Absolute Auto 700 /uL (0-450); Eosinophils Percent Auto 6.7 % (2-4); Hematocrit 27.8 % (41-53); Lymphocytes Absolute Auto 1500 /uL (1100-4500); Lymphocytes Percent Auto 14.2 % (25-40); Mean Corpuscular HGB Conc 32.5 % (30-36); Mean Corpuscular Hemoglobin 24.6 PG (26-34); Mean Corpuscular Volume 75.8 fL (80-100); Monocytes Absolute Auto 1800 /uL (0-900); Monocytes Percent Auto 16.8 % (3-14); Neutrophils Absolute Auto 6500 /uL (1500-7000); Neutrophils Percent Auto 61.3 % (50-75); Platelet Count 266 X10^3/uL (150-400); Red Blood Cell Count 3.67 X10^6/uL (4.5-5.9); Red Cell Distribution Width 15.2 % (11.6-14.8); White Blood Cell Count 10.6 X10^3/uL (4.5-11.0)
[2019-11-03 05:39] LABS: BUN Creatinine Ratio 27.3 (6-22); Blood Urea Nitrogen 27 mg/dL (9-20); Calcium 8.4 mg/dL (8.4-10.2); Carbon Dioxide 25 mmol/L (22-32); Chloride 94 mmol/L (98-107); Estimated Glomerular Filt Rate > 60.0 mL/min (>60); Glucose 108 mg/dL (80-110); HEMOLYSIS < 15 (0-50); Magnesium 1.8 mg/dL (1.6-2.3); Potassium 4.9 mmol/L (3.4-5.1); Sodium 124 mmol/L (137-145)
[2019-11-03] MEDS: CEFTRIAXONE 1 GM/50 ML FROZ.PIGGY IV (05:45)
[2019-11-03] MEDS: SODIUM CHLORIDE 0.9% 250 ML 21 ML IV (05:52)
[2019-11-03] MEDS: LACTATED RINGERS 1,000 ML 42 ML IV ×2 (07:20→09:03)
[2019-11-03] MEDS: CEFAZOLIN 2 GM/100 ML FROZ.PIGGY IV ×2 (07:45→16:22)
--- NOTE | 2019-11-03 08:10 | PM.OP.1 ---
Operative Date/Time/Diagnoses Date of procedure: 11/03/19 Time of procedure: 08:10 Pre-op diagnosis: Left hip femoral neck fracture Post-op diagnosis: same Procedure & Clinicians Procedure: Left hip unipolar Same procedure as scheduled: Yes Indications: The patient has had progressively worsening left hip pain with radiographic changes consistent with arthritis. Non-operative management has failed and the patient has requested total hip replacement. The risks, benefits and alternatives to surgery were discussed with the patient prior to proceeding. Risks discussed included, but were not limited to, failure to relieve pain, leg length discrepancy, dislocation, stiffness, infection, nerve damage, deep venous thrombosis, pulmonary embolism, stroke, coma, heart attack, permanent paralysis and , as well as the potential need for eventual revision of the prosthetic. Surgeon: Jaylene Lepe Job Site Supervisor: Agapito Paredes Anesthesia Type: General Operative Notes Findings: Displaced left femoral neck fracture, adequate stability Closure Type: primary Specimen(s): none sent Prosthetic devices, grafts, tissues, transplants, or devices: Lepe and NephSyndero Synergy 17 standard offset, +0, 54 mm head Estimated Blood Loss (mL): 250 Procedure in detail: The patient was seen in the pre-operative area, where the patient identified the left hip as the operative site and this was marked with my initials. The patient received pre-operative antibiotics and was taken to the operating room and placed on the operative table in the supine position after satisfactory anesthesia. A registered phlebotomist part time out was performed. Patient was placed in the lateral decubitus position and all bony prominences were carefully padded and the arms were appropriately position. The left lower extremity was prepared from the ankle to the iliac crest with ChloroPrep in the usual fashion and draped through sterile drapes. The hip was approached through posterolateral approach. Dissection was carried out down through skin and subcutaneous tissues. The fascia was opened. Gelpi retractors were placed. A Charnley retractor was placed. A small amount of inflamed bursa was resected. The piriformis was identified and protected. The other short external rotators and capsule were carefully stripped from the posterior aspect of the femur. They were tagged and carefully retracted. The femoral neck was brought up and an osteotomy was made of the residual femoral neck approximately 1 fingerbreadth above the lesser trochanter. The head was removed without difficulty. It was carefully sized. The acetabulum was meticulously irrigated with normal saline. There were [mild] changes in the acetabulum. The acetabulum was carefully protected with an E tape. The canal was opened with a box cutting osteotome, followed by a T-handled reamer and a lateralizing reamer. The tapered reamers were then used, followed by sequential broaching. A trial head and neck were then placed and the hip relocated and checked for leg length and stability. The patient was stable in the position of sleep, of squatting, and could be put through a range of motion with 45 degrees internal rotation without dislocation. At 90 degrees flexion, internal rotation to 70 degrees was possible before dislocation. This was felt to be satisfactory and the appropriate components were opened, and the trials were removed. The femoral canal was sized and a distal cement restrictor was placed. The bone was meticulously cleaned with pulse lavage. The canal was packed with vaginal packing with epinephrine. Antibiotics cement was mixed and carefully pressurized into the femoral canal. The femoral component was placed without difficulty. A repeat trial reduction showed good range of motion and stability. We did a brief Betadine soak after the cement had hardened. Patient had good range of motion and stability. The final head and neck were placed after carefully irrigating the wound. The capsulomuscular flap was then repaired to the greater trochanter though an awl hole using the tag sutures. The short external rotators were repaired with black braided nylon. A deep drain was placed and brought out anteriorly. The fascia leah was closed with vicryl. A subcutaneous drain was placed. The subcutaneous layer was closed with interrupted 3-0 Vicryl, and the skin with a running 3-0 V-Lock suture and SteriStrips. An Aquacel Ag dressing was applied and the patient was taken to recovery having tolerated the procedure well. Complications: none Post-operative Condition: stable Disposition: Acute Care Plan for aftercare: The patient will be maintained on a standard total hip replacement protocol with weight bearing as tolerated and posterior hip precautions. The patient will receive Eliquis and sequential compression devices for DVT prophylaxis. The patient will be discharged home when safe for the home environment.
[2019-11-03] MEDS: BUPIVACAINE 0.5% W/ EPI (PF) 30 ML VIAL 60 ML INJ (08:46)
[2019-11-03] MEDS: SODIUM CHLORIDE IRRIG SOLUTION 250 ML, EPINEPHrine 1 MG IRR (08:47)
[2019-11-03] MEDS: BUPIVACAINE LIPOSOME 266 MG/20 ML VIAL INJ (08:48)
[2019-11-03] MEDS: TRANEXAMIC ACID 1,000 MG VIAL 1000 MG IV ×2 (08:49→09:04)
[2019-11-03] MEDS: SODIUM CHLORIDE 0.9% 1,000 ML 1000 ML IV (12:54)
[2019-11-03] MEDS: ACETAMINOPHEN 325 MG TABLET 975 MG PO ×2 (13:00→20:14)
[2019-11-03] MEDS: PREGABALIN 75 MG CAPSULE 150 MG PO ×2 (13:01→20:13)
--- NOTE | 2019-11-03 14:00 | PM.PN.1 ---
Subjective Subjective Date Patient Seen: 11/03/19 Interval history: Francisoc J Albarran is an 84-year-old male with a past medical history significant for bladder cancer status post ileocecal conduit with urostomy, prostate cancer, thyroid cancer status post thyroidectomy, hypothyroidism, nephrolithiasis, coronary artery disease, hypertension, vertigo, peripheral neuropathy and long-term anticoagulation who presented to the ED with left hip pain after ground level fall. The patient is resting in bed comfortably. The patient's left surgical hip repair was postponed until this morning due to surgical emergencies. The patient is now recovering postoperatively and reports no pain. He is eating breakfast and has no complaints overall. He denies headache, chest pain, shortness of breath, abdominal pain, nausea, vomiting, fever, chills, dysuria, diarrhea or constipation. Plan to work with physical and occupational therapy later this afternoon. Exam Vital Signs (past 8 hours): - 11/03/19 07:14 11/03/19 10:20 11/03/19 10:25 Temperature 96.9 F L 99.4 F Pulse Rate 65 104 H 100 H Respiratory Rate 20 16 12 Blood Pressure 101/58 L 99/59 L 106/53 L Pulse Oximetry 96 92 92 11/03/19 10:30 11/03/19 10:45 11/03/19 10:55 Temperature Pulse Rate 101 H 103 H 102 H Respiratory Rate 18 16 15 Blood Pressure 106/59 L 84/48 L 101/55 L Pulse Oximetry 92 92 92 11/03/19 11:05 11/03/19 11:35 11/03/19 13:05 Temperature 97.8 F 97.2 F L 97.7 F Pulse Rate 100 H 107 H 102 H Respiratory Rate 16 16 16 Blood Pressure 93/56 L 96/56 L 97/50 L Pulse Oximetry 95 98 97 11/03/19 13:09 Temperature 98.0 F Pulse Rate 110 H Respiratory Rate 16 Blood Pressure 100/58 L Pulse Oximetry 97 Oxygen Delivery Method Nasal Cannula Oxygen Flow Rate 2 Narrative Exam Narrative: General: Elderly gentleman sitting in bed and in no acute distress, well-developed, well-nourished, appropriately interactive. HEENT: Normocephalic, atraumatic. External ears without defect. Pupils equal, round, and reactive to light. Anicteric sclerae, moist conjunctivae, and no lid lag. Oropharynx free of erythema and cobble stoning with moist mucosa. Neck: Supple with full range of motion. No lymphadenopathy or thyromegaly. Cardiovascular: Regular rhythm and rate without murmurs, rubs, or gallops appreciated. Pulmonary: Clear to auscultation bilaterally without crackles, wheezes, or rhonchi. Normal respiratory effort with no use of accessory muscles. Abdomen: Soft, bowel sounds present, nontender, nondistended. No hepatosplenomegaly or masses appreciated. Urostomy in place with pink stoma. Extremities: No clubbing, cyanosis, or edema of other extremities. Left hip with dressing in place C/D/I and Hemovac drain with sanguinous output. Skin: Normal temperature, turgor, and texture; no rash, ulcers, or subcutaneous nodules appreciated. Neurological: Cranial nerves grossly intact. Psychiatric: Normal mood and affect. Alert and oriented to person, place, and time. Objective Labs Result Diagrams: 11/03/19 05:00 11/03/19 05:00 Labs: Laboratory Results - last 24 hr 11/01/19 11/03/19 11/03/19 05:40 05:00 05:00 WBC 10.6 RBC 3.67 L Hgb 9.0 L Hct 27.8 L MCV 75.8 L MCH 24.6 L MCHC 32.5 RDW 15.2 H Plt Count 266 Neut % (Auto) 61.3 Lymph % (Auto) 14.2 L [place] % (Auto) 16.8 H Eos % (Auto) 6.7 H Baso % (Auto) 1.0 Neut # (Auto) 6500 Lymph # (Auto) 1500 [place] # (Auto) 1800 H Eos # (Auto) 700 H Baso # (Auto) 100 Sodium 124 L Potassium 4.9 Chloride 94 L Carbon Dioxide 25 BUN 27 H Creatinine 0.99 Estimated GFR > 60.0 BUN/Creatinine Ratio 27.3 H Glucose 108 Serum Osmolality 266 L Calcium 8.4 Magnesium 1.8 Procalcitonin 11/03/19 05:00 WBC RBC Hgb Hct MCV MCH MCHC RDW Plt Count Neut % (Auto) Lymph % (Auto) [place] % (Auto) Eos % (Auto) Baso % (Auto) Neut # (Auto) Lymph # (Auto) [place] # (Auto) Eos # (Auto) Baso # (Auto) Sodium Potassium Chloride Carbon Dioxide BUN Creatinine Estimated GFR BUN/Creatinine Ratio Glucose Serum Osmolality Calcium Magnesium Procalcitonin 0.10 Assessment & Plan Assessment & Plan narrative: Francisco J Albarran is an 84-year-old male with a past medical history significant for bladder cancer status post ileocecal conduit with urostomy, prostate cancer, thyroid cancer status post thyroidectomy, hypothyroidism, nephrolithiasis, coronary artery disease, hypertension, vertigo, peripheral neuropathy and long-term anticoagulation who presented to the ED with left hip pain after ground level fall. 1. Acute pathological left femoral neck fracture, status post left hemiarthroplasty, present on admission. Active. -Patient sustained a nonsyncopal slip and fall or his socks on linoleum floor landing on his left hip sustaining an impacted minimally displaced femoral neck fracture. -Consulted orthopedic surgery, Dr. Lepe, who performed left unipolar hip replacement. Continue postoperative, pain and VTE prophylaxis per ortho. -Continue Tylenol 975 mg every 3 times daily, Lyrica 150 mg 3 times daily and oxycodone 5 mg every 3 hours as needed for severe breakthrough pain. -Continue calcium and vitamin D3 supplementation. Patient will need to be treated for osteoporosis as an outpatient per PCP or ortho. -Ordered physical and occupational therapy evaluation treatment. 2. Hyponatremia, acute on chronic, present on admission. Active. -Patient with chronic hyponatremia with baseline sodium level 127 to 135. Initial sodium 124 and stable. -Continue IV fluids with normal saline at 100 mL/hr until adequately hydrated due to previous NPO status, insensible losses intraoperatively and acute blood loss. -Serum osmolality low at 266. Ordered urine sodium and urine osmolality, pending. -Continue to monitor sodium daily. 3. Acute blood loss anemia on anemia of chronic disease, present on admission. Active. -Hemoglobin 9.5 and hematocrit 29.1 with MCV 75.9 and MCH of 24.8. Baseline hemoglobin typically appears to run between 10 and 12. -Ferritin markedly low at 8 and iron panel demonstrates iron deficiency likely due to acute blood loss. Received Venofer 200 mg IV x 1. Consider starting iron supplementation. -Continue to monitor H&H closely. Transfusion goal hemoglobin < 8.0. 4. Hypertension, chronic, present on admission. Stable. -Patient with well controlled blood pressure, 140/72 upon arrival to the ER. -Held amlodipine 10 mg daily, losartan 100 mg daily in the evening, and metoprolol succinate 25 mg daily due to low normal blood pressure and will likely restart tomorrow morning. 5. CAD status post MD, chronic, present on admission. Stable. -Patient has no chest pain, palpitations or shortness of breath. -Held aspirin 81 mg daily and Eliquis 5 mg twice daily pending surgical repair of left hip and will restart at discretion of orthopedic surgery. -Continue home atorvastatin 40 mg daily. 6. Long-term anticoagulation with Eliquis, present on admission. Chronic. -Unclear reason for anticoagulation. No history of atrial fibrillation, blood clots, PAD/PVD. May be for VTE prophylaxis in the setting of multiple previous cancers now presumed to be in remission? -Eliquis was held pending surgical repair of his left hip and will restart at discretion of orthopedic surgery. 7. Secondary hypothyroidism, chronic, present on admission. Stable. -Patient previously had thyroid cancer status post thyroidectomy. -Continue home levothyroxine 200 mcg daily. 8. Peripheral neuropathy, chronic, present on admission. Stable. -Continue home Lyrica 150 mg 3 times daily. 9. History of bladder and prostate cancer status post ileocecal conduit and urostomy with asymptomatic bacteriuria, chronic, present on admission. Stable -Urine culture growing 2 colonies of gram negative bacilli. 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 -No antibiotic therapy warranted at this time and discontinued ceftriaxone. Code status: Full code, patient designates his Yael to be his surrogate decision maker VTE prophylaxis: Eliquis, Bilateral SCDs Disposition: Patient will likely discharge in 1-2 days to long term for continued rehabilitation once mobilizing.
[2019-11-03] MEDS: SODIUM CHLORIDE 0.9% 1,000 ML 100 ML IV (15:00)
--- NOTE | 2019-11-03 16:09 | PT-IP ANOTE ---
Checked on pt . PLOF and home set up obtained. BP checked prior to mobilization and BP from RUE: 87/58 from LUE: 73/42. informed nurse that PT will hold pt for today due to low BP. nurse agreed and informed the doctor regarding low BP. will f/u tomorrow.
[2019-11-03] MEDS: FERROUS GLUCONATE 324 MG TABLET PO (16:22)
--- NOTE | 2019-11-03 16:32 | PC.NURSE ---
Addendum entered by Tala Bermeo R.N. 11/03/19 22:04: Dr. Lepe in to see patient late evening. Per Dr. Suh's direction, Dr. Lepe was informed Dr. Suh has dc'd ibuprofen and also informed Dr. Lepe of pt's hypotension with stat H and H of 8.[address] Lepe, inform nocs and days pt to at least sit up and possibly dangle to promote mobility/activity. Addendum entered by Tala Bermeo R.N. 11/03/19 21:17: Pt continues to deny pain and remain awake, alert, conversant with staff. Observing posterior hip precautions, pt was turned in bed to visualize aquacel dressing to left hip in its entirety to insure no visible bleeding. Hemovac remains compressed and aquacel is without drainage. No visible bruising to left hip. Palpable pedal pulse left foot. Addendum entered by Tala Bermeo R.N. 11/03/19 19:15: Dr. Suh was informed of pt's blood pressure variance through this evening shift. Pt is awake, alert, sitting semi upright in bed watching television. MD also informed of pt's H and H this evening. Pt continues to deny pain to left hip. Original Note: Pt awake and alert in bed. Blood pressures to lower extremities per Dr. Suh and these were reported to MD. Systolic BP's 104 and 105 R and L ankle respectively. Hemovac intact to left hip. Ice to left hip. Aquacel dsg to left posterior hip in place. Pt denies pain and admits to full sensation to BL LE's. Left scd in place as BP cuff in place to right ankle for serial readings. Oxygen removed as pt denies use @ home. Room air 93-94%. Pt with occasional dry cough. Using I.S. often and independently to 1500. Lab in to draw stat H and H per Dr. Suh. Pt denies nausea. Taking oral fluids/foods without difficulty.
[2019-11-03 17:08] LABS: Sodium Urine Random 40 mmol/L (30-90)
[2019-11-03] MEDS: DOCUSATE 100 MG CAPSULE PO (20:13)
[2019-11-03] MEDS: SENNOSIDES 8.6 MG TABLET PO (20:13)
[2019-11-04] VITALS (8 sets, daily range): BP systolic 109–149; BP diastolic 58–85; PULSE 70–96; RESP 16–18; TEMP 36.2–37.3; O2SAT 92–96
[2019-11-04] MEDS: CEFAZOLIN 2 GM/100 ML FROZ.PIGGY IV (00:20)
--- NOTE | 2019-11-04 00:47 | PC.NURSE ---
Addendum entered by Yael Mclean R.N. 11/04/19 05:21: States he is starting to feel some discomfort in left hip rating severity as 5/10; medicated with Oxycodone. Original Note: Patient is alert and oriented. Breath sounds with expiratory coarse crackles bilateral mid/lower lobes; RA sat is 94%. HRR; telemetry reading was SR. Denies nausea. BT present and abdomen is soft; denies flatus. Urostomy to RLQ with beefy red stoma; patent. Able to assist in repositioning q2h. Aquacel dressing to left hip is CDI; hemovac is intact and compressed. Denies pain. Bruising on bilateral UE with scabbed skin tear on right forearm. Dressings to left elbow are CDI. CMS intact bilaterally. Wearing calf SCD on left leg. Fall risk score is high and bed alarm is activated.
[2019-11-04] MEDS: SODIUM CHLORIDE 0.9% 1,000 ML 100 ML IV (02:08)
[2019-11-04] MEDS: OXYCODONE IR 5 MG TABLET PO ×4 (05:17→21:21)
[2019-11-04] MEDS: LEVOTHYROXINE 100 MCG TABLET 200 MCG PO (05:18)
[2019-11-04 05:38] LABS: Add Manual Diff / Slide Review NO; Basophils Absolute Auto 0 /uL (0-100); Basophils Percent Auto 0.4 % (0-2); Eosinophils Absolute Auto 600 /uL (0-450); Eosinophils Percent Auto 6.1 % (2-4); Hemoglobin 7.6 g/dL (13.5-17.5); Lymphocytes Absolute Auto 800 /uL (1100-4500); Lymphocytes Percent Auto 8.5 % (25-40); Mean Corpuscular HGB Conc 32.2 % (30-36); Mean Corpuscular Hemoglobin 24.8 PG (26-34); Mean Corpuscular Volume 76.9 fL (80-100); Monocytes Absolute Auto 1100 /uL (0-900); Monocytes Percent Auto 11.5 % (3-14); Neutrophils Absolute Auto 7300 /uL (1500-7000); Neutrophils Percent Auto 73.5 % (50-75); Platelet Count 202 X10^3/uL (150-400); Red Blood Cell Count 3.07 X10^6/uL (4.5-5.9); White Blood Cell Count 9.9 X10^3/uL (4.5-11.0)
[2019-11-04 05:47] LABS: Blood Urea Nitrogen 19 mg/dL (9-20); Calcium 7.8 mg/dL (8.4-10.2); Carbon Dioxide 26 mmol/L (22-32); Chloride 95 mmol/L (98-107); Estimated Glomerular Filt Rate > 60.0 mL/min (>60); Glucose 109 mg/dL (80-110); HEMOLYSIS < 15 (0-50); Magnesium 1.7 mg/dL (1.6-2.3); Potassium 4.7 mmol/L (3.4-5.1); Sodium 125 mmol/L (137-145)
[2019-11-04 06:01] LABS: Hematocrit 23.6 % (41-53)
--- NOTE | 2019-11-04 07:37 | P.PN_ITS ---
Subjective Subjective Date Patient Seen: 11/04/19 Interval history: Francisco J Albarran is an 84-year-old male with a past medical history significant for bladder cancer status post ileocecal conduit with urostomy, prostate cancer, thyroid cancer status post thyroidectomy, hypothyroidism, nephrolithiasis, coronary artery disease, hypertension, vertigo, peripheral neuropathy and long- term anticoagulation who presented to the ED with left hip pain after ground level fall. The patient is resting in bed comfortably. He endorses mild pain of his left hip with movement or position changes that is controlled with pain medication. His blood pressure measurements have been labile and likely are inaccurate as he has had no symptoms including: Lightheadedness, dizziness, near-syncope or syncope with SBP measured as low as 84. He does have anemia of chronic disease which is now worsened due to acute blood loss and some dilution from IV fluids. Patient continues to have high output through his urostomy with 8 L in and 9 L out. He does not appear dehydrated. He denies headache, chest pain, shortness of breath, abdominal pain, nausea, vomiting, fever, chills, dysuria, diarrhea or constipation. He is voiding be a urostomy. He has not had a bowel movement since admission and a bowel regimen has been implemented. He is up with assistance. Continue PT and OT. Exam Vital Signs (past 8 hours): - 11/03/19 23:40 11/04/19 05:59 Temperature 96.9 F L 97.2 F L Pulse Rate 76 70 Respiratory Rate 16 16 Blood Pressure 128/54 L 142/77 H Pulse Oximetry 94 94 Oxygen Delivery Method Room Air Oxygen Flow Rate 0 Narrative Exam Narrative: General: Elderly gentleman sitting in bed and in no acute distress, well- developed, well-nourished, pallor, appropriately interactive. HEENT: Normocephalic, atraumatic. External ears without defect. Pupils equal, round, and reactive to light. Anicteric sclerae, moist but pale conjunctivae, and no lid lag. Oropharynx free of erythema and cobble stoning with moist mucosa. Neck: Supple with full range of motion. No lymphadenopathy or thyromegaly. Cardiovascular: Regular rhythm and rate without murmurs, rubs, or gallops appreciated. Pulmonary: Clear to auscultation bilaterally without crackles, wheezes, or rhonchi. Normal respiratory effort with no use of accessory muscles. Abdomen: Soft, bowel sounds present, nontender, nondistended. No hepatosplenomegaly or masses appreciated. Urostomy in place with pink stoma. Extremities: No clubbing, cyanosis, or edema of other extremities. Left hip firm and mildly edematous with dressing in place C/D/I and Hemovac drain with minimal sanguinous output. Skin: Normal temperature, turgor, and texture; no rash, ulcers, or subcutaneous nodules appreciated. Neurological: Cranial nerves grossly intact. Psychiatric: Normal mood and affect. Alert and oriented to person, place, and time. Objective Labs Result Diagrams: 11/04/19 05:15 11/04/19 05:15 Labs: Laboratory Results - last 24 hr 10/31/19 11/03/19 11/03/19 15:00 05:00 16:22 WBC RBC Hgb 8.0 L Hct 25.0 L MCV MCH MCHC RDW Plt Count Neut % (Auto) Lymph % (Auto) [place] % (Auto) Eos % (Auto) Baso % (Auto) Neut # (Auto) Lymph # (Auto) [place] # (Auto) Eos # (Auto) Baso # (Auto) Sodium Potassium Chloride Carbon Dioxide BUN Creatinine Estimated GFR BUN/Creatinine Ratio Glucose Calcium Magnesium Procalcitonin 0.10 Ur Random Sodium 40 11/04/19 11/04/19 05:15 05:15 WBC 9.9 RBC 3.07 L Hgb 7.6 L Hct 23.6 L MCV 76.9 L MCH 24.8 L MCHC 32.2 RDW 15.0 H Plt Count 202 Neut % (Auto) 73.5 Lymph % (Auto) 8.5 L [place] % (Auto) 11.5 Eos % (Auto) 6.1 H Baso % (Auto) 0.4 Neut # (Auto) 7300 H Lymph # (Auto) 800 L [place] # (Auto) 1100 H Eos # (Auto) 600 H Baso # (Auto) 0 Sodium 125 L Potassium 4.7 Chloride 95 L Carbon Dioxide 26 BUN 19 Creatinine 0.76 Estimated GFR > 60.0 BUN/Creatinine Ratio 25.0 H Glucose 109 Calcium 7.8 L Magnesium 1.7 Procalcitonin Ur Random Sodium Assessment & Plan Assessment & Plan narrative: Francisco J Albarran is an 84-year-old male with a past medical history significant for bladder cancer status post ileocecal conduit with urostomy, prostate cancer, thyroid cancer status post thyroidectomy, hypothyroidism, nephrolithiasis, coronary artery disease, hypertension, vertigo, peripheral neuropathy and long- term anticoagulation who presented to the ED with left hip pain after ground level fall. 1. Acute pathological left femoral neck fracture, status post left hemiarthroplasty, present on admission. Active. -Patient sustained a nonsyncopal slip and fall or his socks on linoleum floor landing on his left hip sustaining an impacted minimally displaced femoral neck fracture. -Consulted orthopedic surgery, Dr. Lepe, who performed left unipolar hip replacement. Continue postoperative, pain and VTE prophylaxis per ortho. -Continue Tylenol 975 mg every 3 times daily, Lyrica 150 mg 3 times daily and oxycodone 5 mg every 3 hours as needed for severe breakthrough pain. -Continue calcium and vitamin D3 supplementation. Patient will need to be t reated for osteoporosis as an outpatient per PCP or ortho. -Ordered physical and occupational therapy evaluation treatment. 2. Hyponatremia, acute on chronic, present on admission. Active. -Secondary to high urine output through urostomy. -Patient with chronic hyponatremia with baseline sodium level 127 to 135. Initial sodium 124 and trending up slightly to 125. -Discontinued IV fluids as patient appears adequately hydrated. -Serum osmolality low at 266. Urine sodium normal at 40 and urine osmolality at 377. -Continue to monitor sodium daily. 3. Acute blood loss anemia on anemia of chronic disease, present on admission. Active. -Initial hemoglobin 9.5 and hematocrit 29.1 with MCV 75.9 and MCH of 24.8. Baseline hemoglobin typically appears to run between 10 and 12. Hemoglobin trending down now 7.6 likely due to acute blood loss and hemodilution from IV fluids. -Ferritin markedly low at 8 and iron panel demonstrates iron deficiency likely due to acute blood loss. Received Venofer 200 mg IV x 1. Started iron supplementation with ferrous gluconate 324 mg daily. -Continue to monitor H&H closely. Transfusion goal hemoglobin < 7.5. 4. Hypertension, chronic, present on admission. Stable. -Patient with well controlled blood pressure, 140/72 upon arrival to the ER. -Initially held antihypertensives postoperatively due to low normal blood pressure. Restarted amlodipine 10 mg daily, losartan 100 mg daily in the evening, and metoprolol succinate 25 mg daily. 5. CAD status post GA, chronic, present on admission. Stable. -Patient has no chest pain, palpitations or shortness of breath. -Held aspirin 81 mg daily and Eliquis 5 mg twice daily pending surgical repair of left hip and will restart Eliquis 5 mg daily and aspirin 81 mg daily today per Orthopedic surgery. -Continue home atorvastatin 40 mg daily. 6. Long-term anticoagulation with Eliquis, present on admission. Chronic. -Unclear reason for anticoagulation. No history of atrial fibrillation, blood clots, PAD/PVD. May be for VTE prophylaxis in the setting of multiple previous cancers now presumed to be in remission? -Eliquis was held pending surgical repair of his left hip and restarted Eliquis 5 mg daily today per Orthopedic surgery. 7. Secondary hypothyroidism, chronic, present on admission. Stable. -Patient previously had thyroid cancer status post thyroidectomy. -Continue home levothyroxine 200 mcg daily. 8. Peripheral neuropathy, chronic, present on admission. Stable. -Continue home Lyrica 150 mg 3 times daily. 9. History of bladder and prostate cancer status post ileocecal conduit and urostomy with asymptomatic bacteriuria, chronic, present on admission. Stable -Urine culture growing 2 colonies of gram negative bacilli. However, patient has no complaints of abdominal pain, fevers or chills and laboratory demonstrates normal WBC and procalcitonin negative, therefore likely colonized and rep resentative of asymptomatic bactiuria. -No antibiotic therapy warranted at this time and discontinued ceftriaxone. Code status: Full code, patient designates his Yael to be his surrogate decision maker VTE prophylaxis: Eliquis, bilateral SCDs Disposition: Patient will likely discharge in 1-2 days to senior living for continued rehabilitation once mobilizing.
[2019-11-04] MEDS: MAGNESIUM CHLORIDE 64 MG TABLET 128 MG PO (08:22)
[2019-11-04] MEDS: DOCUSATE 100 MG CAPSULE PO ×2 (08:23→21:21)
[2019-11-04] MEDS: PREGABALIN 75 MG CAPSULE 150 MG PO ×3 (08:23→21:20)
[2019-11-04] MEDS: ASPIRIN EC 81 MG TABLET PO (08:23)
[2019-11-04] MEDS: FERROUS GLUCONATE 324 MG TABLET PO (08:24)
[2019-11-04] MEDS: SENNOSIDES 8.6 MG TABLET PO ×2 (08:24→21:20)
[2019-11-04] MEDS: ACETAMINOPHEN 325 MG TABLET 975 MG PO ×3 (08:24→21:21)
[2019-11-04] MEDS: METOPROLOL ER 25 MG TABLET PO (08:26)
--- NOTE | 2019-11-04 10:08 | PT.IIE ---
Current Diagnoses Unspecified fracture of left femur, initial encounter for closed fracture (10/31/19) Surgery Performed Operation Date: 11/03/19 07:45 Actual Procedures p Unipolar Hip(Left) - Jaylene Lepe MD Surgical History (Last Reviewed 11/01/19 @ 14:35 by Jayleen Lepe MD) H/O colectomy (Acute) H/O thyroidectomy (Acute) History of appendectomy (Acute) History of urostomy (Acute) Medical History (Last Reviewed 11/01/19 @ 14:35 by Jaylene Lepe MD) Bladder cancer (Acute) Coronary artery disease (Acute) Hypertension (Acute) Hyponatremia (Acute) Hypothyroid (Acute) Kidney stones (Acute) Prostate cancer (Acute) Thyroid cancer (Acute) Physical Therapy Inpatient Evaluation/Re-Eval M1 PT/OT-IP Prior Functional Status Start: 11/04/19 08:29 Freq: NEEDED Status: Active Protocol: Document 11/04/19 10:08 AB (Rec: 11/04/19 13:10 AB [id number]) Medical Review Prior Functional Status Medical History Reviewed Yes Communication able to make needs known Mobility and Gait stated that he is indpendent with all mobilities and ambulation without AD but uses a FWW for long distance ambulation Social History Household Members spouse Living Arrangements House Number of Floors (Floors) One Floor Number of Stairs To Enter/Railing? 4 steps to enter with bilateral rails : front of the house 4 steps to enter with R rail and wall on L: back of the house Home Environment Walk in Shower Home Equipment Front Wheel Walker,Raised Toilet Seat w/Armrests,Hand Held Shower Additional Social History Comment pt has an adjustable bed spouse stated that she will not be able to physically assist pt due to her COPD M2 PT-IP Current Condition Start: 11/04/19 08:29 Freq: NEEDED Status: Active Protocol: Document 11/04/19 10:08 AB (Rec: 11/04/19 13:10 AB [id number]) Physical Therapy Current Condition Current Condition Evaluation Date 11/04/19 Treatment Diagnosis s/p L L MARLON posterior approach ; difficulty in walking Onset Date 10/31/19 Precautions Posterior Hip Precautions No Hip Flexion > 90 degrees,No Hip Internal Rotation,No Hip Adduction Weight Bearing Status Weight Bearing Status Weight Bear as Tolerated Allowed Weight Bearing Amount (enter % LLE WBAT or #) (%) M3 PT-IP Subjective Start: 11/04/19 08:29 Freq: NEEDED Status: Active Protocol: Document 11/04/19 10:08 AB (Rec: 11/04/19 13:10 AB [id number]) Subjective Physical Therapy Visit Type Type Initial Evaluation Visit Start Time 10:08 Visit Stop Time 10:47 Total Visit Minutes 39 Number of HAND BUFFER Visits 0 Physical Therapy Visit Comments Patient Comments pt is agreeable to do PT Therapy Pain Assessment Pain When Pain Assessed At Rest Pain Present Pain Present Pain Reported Location Left Hip Intensity 3 M4 PT-IP Mobility and Gait Start: 11/04/19 08:29 Freq: NEEDED Status: Active Protocol: Document 11/04/19 10:08 AB (Rec: 11/04/19 13:10 AB [id number]) PT-Bed Mobility Assessment Supine to Sit Supine to Sit Maximum Assistance,Bedrails Scooting Scooting to Edge of Bed Maximum Assistance PT-Transfer Assessment Sit to and From Stand Sit to and from Stand Maximum Assistance,1 Person Assistance,Use of Upper Extremities Equipment Transfer Assistive Device Gait Belt,Front Wheeled Walker Orthotic/Prosthetic Devices or Brace: No Transfers Transfer Destination Chair Transfer Technique ambulated using FWW Transfer Ability Level of Assist Moderate Assistance,1 Person Assistance,Use of Upper Extremities Comments Mobility Comments educated on posterior hip precautions. pt requires cues to recall. BP: 105/57. completed supine to sit max A and max cues with use of bed rail. pt required max A to scoot to EOB. BP: 131/80. pt with difficulty following directions. required max A for sit to stand and was able to ambulate ~ 2 ft using FWW mod A and transfer to chair. positioned pt on chair. pt stated that he is tired. call light and table placed within reach. Gait Assessment Gait Gait Assistance Required: Moderate Assistance,1 Person Assist Distance (Feet) 2 Able to Maintain Weight Bearing Status Yes During Gait Assistive Devices Assistive Device Gait Belt,Front Wheeled Walker Orthotic/Prosthetic Devices or Brace: No Gait Deviations General Gait Pattern Ataxic,Decreased Stride Length ,Decreased Feet Clearance,Step -to Gait Factors Limiting Gait Function Factors Limiting Gait Function Decreased Activity Tolerance, Decreased Strength,Difficulty Following Directions,Limited Range of Motion,Pain,Poor Balance,Poor Safety Awareness PT-Balance Assessment Sitting Balance and Reactions Static Sitting Balance Ability Good Dynamic Sitting Balance Ability Fair Standing Balance and Reactions Static Standing Balance Ability Fair Dynamic Standing Balance Ability Poor Device Used FWW M5 PT-IP Objective Assessments Start: 11/04/19 08:29 Freq: NEEDED Status: Active Protocol: Document 11/04/19 10:08 AB (Rec: 11/04/19 13:10 AB [id number]) Orientation Orientation/Cognition Level of Alertness Alert Orientation Name,Place,Situation Safety Awareness Decreased Safety Awareness Memory Description Short Term Impaired Gross Range of Motion Lower Extremity ROM Assessment Within Functional Limits Strength Lower Extremity Strength Assessment Left Impaired Hip 3+/5 Knee 3+/5 Coordination Assessment Gross Coordination Gross Coordination WNL Sensation Assessment Sensation Gross Sensation WNL Muscle Tone Muscle Tone WNL Yes M6 PT-IP Treatment Start: 11/04/19 08:29 Freq: NEEDED Status: Active Protocol: Document 11/04/19 10:08 AB (Rec: 11/04/19 13:10 AB [id number]) Physical Therapy Treatment Exercises Exercises Heel Slides Education Education Provided Precautions,Weight Bearing Status,Post-Op Packet,Safety M7 PT-IP Assessment and Plan Start: 11/04/19 08:29 Freq: NEEDED Status: Active Protocol: Document 11/04/19 10:08 AB (Rec: 11/04/19 13:10 AB [id number]) PT Summary Assessment and Plan Potential Rehabilitation Potential Good Status of Condition at Evaluation Evolving Summary Impairments Pain,ROM,Strength,Balance, Coordination,Sensation,Tone, Cognition,Bed Mobility, Transfers,Gait,Activity Tolerance Assessment Summary pt requires mod to max A with mobility and requires cues to maintain hip precautions. pt' s spouse will not be able to assist pt at home due to her own medical issues. pt will need SNF rehab to improve strength and functional independence prior to d/c home . Goals Bed Mobility Goal Minimal Assistance Transfer Goal Minimal Assistance,Front Wheeled Walker Gait Goal Minimal Assistance,Front Wheel Walker Gait Distance 50 Days to Meet Goals 5 Frequency of Treatment Frequency Of Treatment Twice a Day Treatment Plan Physical Therapy Treatment Plan Bed Mobility Training,Transfer Training,Gait Training, Therapeutic Exercise,Balance Retraining,Post Op Education, Discharge Planning,Hot or Cold Pack,Neuromuscular Re-ed, Coordination Retraining,Manual Therapy Recommendations To Nursing Amount of Assist Needed 2 Person Assist Discharge Recommendations PT Discharge Recommendations SNF Rehab Transportation Needs at Discharge Private Vehicle,Wheelchair/ Cabulance
--- NOTE | 2019-11-04 11:22 | OT.IPNOTE ---
Pt just got up with PT and not wanting to get up at this time. Able to talk to pt regarding OT needs and prior history, no charge. To see pt tomorrow for OT eval.
[2019-11-04 13:11] LABS: Osmolality Urine 377 mOsmol/kg (.)
--- NOTE | 2019-11-04 13:30 | PT.IPTN ---
Current Diagnoses Unspecified fracture of left femur, initial encounter for closed fracture (10/31/19) Surgery Performed Operation Date: 11/03/19 07:45 Actual Procedures p Unipolar Hip(Left) - Jaylene Lepe MD Physical Therapy Treatment Note M2 PT-IP Current Condition Start: 11/04/19 08:29 Freq: NEEDED Status: Active Protocol: Document 11/04/19 10:08 AB (Rec: 11/04/19 13:10 AB [id number]) Physical Therapy Current Condition Current Condition Evaluation Date 11/04/19 Treatment Diagnosis s/p L L MARLON posterior approach ; difficulty in walking Onset Date 10/31/19 Precautions Posterior Hip Precautions No Hip Flexion > 90 degrees,No Hip Internal Rotation,No Hip Adduction Weight Bearing Status Weight Bearing Status Weight Bear as Tolerated Allowed Weight Bearing Amount (enter % LLE WBAT or #) (%) M3 PT-IP Subjective Start: 11/04/19 08:29 Freq: NEEDED Status: Active Protocol: Document 11/04/19 13:30 AB (Rec: 11/04/19 16:20 AB [id number]) Subjective Physical Therapy Visit Type Type Treatment Note Visit Start Time 13:30 Visit Stop Time 14:22 Total Visit Minutes 53 Number of CNA LTC Visits 0 Physical Therapy Visit Comments Patient Comments pt is agreeable to do PT. daughter in room with PT Therapy Pain Assessment Pain Present Pain Present Denied Pain M4 PT-IP Mobility and Gait Start: 11/04/19 08:29 Freq: NEEDED Status: Active Protocol: Document 11/04/19 13:30 AB (Rec: 11/04/19 16:20 AB [id number]) PT-Bed Mobility Assessment Supine to Sit Supine to Sit Minimal Assistance,Head of Bed Elevated,Bedrails Sit to Supine Sit to Supine Moderate Assistance,Head of Bed Elevated PT-Transfer Assessment Sit to and From Stand Sit to and from Stand Minimal Assistance,1 Person Assistance,Use of Upper Extremities Equipment Transfer Assistive Device Gait Belt,Front Wheeled Walker Orthotic/Prosthetic Devices or Brace: No Transfers Transfer Destination Bed Transfer Technique ambulated using FWW Transfer Ability Level of Assist Minimal Assistance,1 Person Assistance,Use of Upper Extremities Comments Mobility Comments pt sitting on chair. completed sit to stand x 2 reps min A and cues for hip precautions. pt ambulated in room ~ 35 ft x 2 using FWW CGA to min A and cues. pt can be impulsive and requires cues for safety and to maintain hip precautions during turns. O2 sat 92% with activity, (+) SOB. pt ambulated towards the bed ~ 15 ft using FWW CGA to min A and cues. Bed mobility training x 2 sets and completed with min A and cues for techniques with HOB elevated and use of side rail. pt stated that he uses the ledge of bed frame at home. pt requested to stay in bed. positioned pt in bed. call light and table placed within reach. pt and daughter stated that Dr Nestor Lepe wants pt to go home instead of SNF due to COVID concerns. informed pt and daughter regarding assistance needed and 03/11 assist at home is pt want to go home. pillowcase turner came in and talk to pt 's daughter. daughter stated that she will talk to pt and decide from there. caregiver training planned for tomorrow with spouse but spouse will not be able to physically assist pt from last conversation with PT . Gait Assessment Gait Gait Assistance Required: Contact Guard Assist,Minimum Assistance Distance (Feet) 35 Able to Maintain Weight Bearing Status Yes During Gait Assistive Devices Assistive Device Gait Belt,Front Wheeled Walker Orthotic/Prosthetic Devices or Brace: No Gait Deviations General Gait Pattern Antalgic,Flexed Trunk Factors Limiting Gait Function Factors Limiting Gait Function Decreased Activity Tolerance, Decreased Strength,Difficulty Following Directions,Limited Range of Motion,Poor Balance, Poor Safety Awareness, Respiratory Distress Comments Gait Comments pls refer to mobility section for details. M5 PT-IP Objective Assessments Start: 11/04/19 08:29 Freq: NEEDED Status: Active Protocol: Document 11/04/19 10:08 AB (Rec: 11/04/19 13:10 AB [id number]) Orientation Orientation/Cognition Level of Alertness Alert Orientation Name,Place,Situation Safety Awareness Decreased Safety Awareness Memory Description Short Term Impaired Gross Range of Motion Lower Extremity ROM Assessment Within Functional Limits Strength Lower Extremity Strength Assessment Left Impaired Hip 3+/5 Knee 3+/5 Coordination Assessment Gross Coordination Gross Coordination WNL Sensation Assessment Sensation Gross Sensation WNL Muscle Tone Muscle Tone WNL Yes M6 PT-IP Treatment Start: 11/04/19 08:29 Freq: NEEDED Status: Active Protocol: Document 11/04/19 13:30 AB (Rec: 11/04/19 16:20 AB [id number]) Physical Therapy Treatment Education Education Provided Precautions,Safety M7 PT-IP Assessment and Plan Start: 11/04/19 08:29 Freq: NEEDED Status: Active Protocol: Document 11/04/19 13:30 AB (Rec: 11/04/19 16:20 AB [id number]) PT Summary Assessment and Plan Potential Rehabilitation Potential Good Summary Impairments ROM,Strength,Balance, Coordination,Tone,Cognition, Bed Mobility,Transfers,Gait, Activity Tolerance Progress Towards Goals Slow Progress due to Medical Issues,Slow Progress - Other Assessment Summary pt improving with mobility but continues to require min A with mobiltiy and frequent cues for maintain hip precautions. pt and family concerned about going to SNF. informed pt regarding current mobility status and level of assistance needed and if necessary assistance at home is available, caregiver training will be conducted and pt may go home and have homehealth PT but at this time , pt continues to need SNF rehab. Goals Bed Mobility Goal Independent Transfer Goal Independent,Front Wheeled Walker Gait Goal Independent,Front Wheel Walker Gait Distance 150 Other Goals up/down 4 steps 1 rail SBA Days to Meet Goals 5 Frequency of Treatment Frequency Of Treatment Twice a Day Treatment Plan Physical Therapy Treatment Plan Bed Mobility Training,Transfer Training,Gait Training, Therapeutic Exercise,Balance Retraining,Post Op Education, Discharge Planning,Hot or Cold Pack,Neuromuscular Re-ed, Coordination Retraining,Manual Therapy Recommendations To Nursing Amount of Assist Needed 1 Person Assist Discharge Recommendations PT Discharge Recommendations SNF Rehab Transportation Needs at Discharge Private Vehicle,Wheelchair/ Cabulance
--- NOTE | 2019-11-04 14:28 | CM.DPC ---
DCP Continued: EMR reviewed: CM/ RN met with patient and patients daughter at the bedside to discuss d/C plan. Patient is thinking he would like to go home with services but patients daughter is worried about patient D/C home without support since her mother is elderly and not able to fully care for the patient at this time. CM/RN will let patient and patients daughter talk about D/C plan and CM will follow up before the end of the day today. [facility] has accepted patient for admission at D/C and PASRR is complete. To go to SNF patient will need an updated COVID prior to admission. CM/RN let Dr. Suh and patients nurse know. CM/RN Called Alma Rosa at [facility] to let her know that patient will most likely be ready for D/C tomorrow. Alma Rosa stated that will be good and they are expecting him. Kailee Lepe RN
--- NOTE | 2019-11-04 14:32 | P.PN_ITS ---
Subjective Subjective Date Patient Seen: 11/04/19 Time Patient Seen: 10:32 Interval history: Gianluca notes that he is doing reasonably well he was able to get up with physical therapy and out of bed to a chair. He did feel distal little bit woozy when he was up. He really has minimal hip pain. Exam Vital Signs (past 8 hours): - 11/04/19 08:46 11/04/19 11:48 Temperature 97.4 F L 98.1 F Pulse Rate 74 96 H Respiratory Rate 16 16 Blood Pressure 134/82 149/85 H Pulse Oximetry 95 92 Oxygen Delivery Method Room Air Oxygen Flow Rate 0 Narrative Exam Narrative: Is resting comfortably in a chair and no pain with gentle range of motion into his left hip, is dressing is dry can fire his toe flexors and extensors and is calfs are soft bilaterally. Objective Labs Result Diagrams: 11/04/19 05:15 11/04/19 05:15 Labs: Laboratory Results - last 24 hr 10/31/19 10/31/19 11/03/19 15:00 15:00 16:22 WBC RBC Hgb 8.0 L Hct 25.0 L MCV MCH MCHC RDW Plt Count Neut % (Auto) Lymph % (Auto) [place] % (Auto) Eos % (Auto) Baso % (Auto) Neut # (Auto) Lymph # (Auto) [place] # (Auto) Eos # (Auto) Baso # (Auto) Sodium Potassium Chloride Carbon Dioxide BUN Creatinine Estimated GFR BUN/Creatinine Ratio Glucose Calcium Magnesium Urine Osmolality 377 Ur Random Sodium 40 11/04/19 11/04/19 05:15 05:15 WBC 9.9 RBC 3.07 L Hgb 7.6 L Hct 23.6 L MCV 76.9 L MCH 24.8 L MCHC 32.2 RDW 15.0 H Plt Count 202 Neut % (Auto) 73.5 Lymph % (Auto) 8.5 L [place] % (Auto) 11.5 Eos % (Auto) 6.1 H Baso % (Auto) 0.4 Neut # (Auto) 7300 H Lymph # (Auto) 800 L [place] # (Auto) 1100 H Eos # (Auto) 600 H Baso # (Auto) 0 Sodium 125 L Potassium 4.7 Chloride 95 L Carbon Dioxide 26 BUN 19 Creatinine 0.76 Estimated GFR > 60.0 BUN/Creatinine Ratio 25.0 H Glucose 109 Calcium 7.8 L Magnesium 1.7 Urine Osmolality Ur Random Sodium Assessment & Plan Assessment & Plan narrative: Doing reasonably well status post a left hip unipolar for femoral neck fracture. Acute on chronic anemia with blood loss anemia secondary to a femoral neck fracture somewhat symptomatic. Recommendations and plan I strongly encouraged him to continue to work on a progressive ambulation program. He can be full weight-bearing on his left lower extremity. I think if at all possible at would be a good idea to try and discharge him to home as long as he is safe with physical therapy. He is quite anemic but is only having mild to moderate symptoms. If he becomes more symptom atic he may require blood transfusion. I encouraged him to continue to work with physical therapy hopefully can be discharged to home tomorrow afternoon or on Thursday.
[2019-11-04] MEDS: polyethylene glycoL 3350 17 GM POWD.PACK PO (14:34)
[2019-11-04] MEDS: APIXABAN 5 MG TABLET PO (14:34)
--- NOTE | 2019-11-04 16:04 | PC.NURSE ---
Addendum entered by Tala Bermeo R.N. 11/04/19 22:21: Pt reports calf pain resolved. Able to turn to right side observing posterior left hip precautions for visualization of aquacel dressing to left hip. This is intact with tight edema noted to left hip. Previous hemovac gauze dressing saturated and this was changed with 2 x 2 and tegaderm. No active bleeding noted. Bedbath in progress by DIRECTOR OF STUDENT SERVICES. Addendum entered by Tala Bermeo R.N. 11/04/19 21:22: When asked, pt does report calf pain BL 4/10. Pt is able to flex and point feet without any increase in pain. Calves are soft BL. Removed scd's and will monitor for relief. Continues to refuse rectal suppository to promote bowel function. Original Note: Pt resting quietly in bed awake, alert, conversant. Dr. Lepe in to see pt and pt's daughter as well as planner. Pt admits to left hip pain 2-3/10, but does not describe nature. Declines ice to left hip. Pt admits to full sensation to BL LE's. BL calf scd's replaced. Faint crackles LLL. Room air 96% with oxygen probe on pt's toe. Declines suppository at this time. Tele in place. Urostomy with pt's own tubing draining to gomez bag to gravity.
[2019-11-04 17:36] LABS: COVID19 -Nasal RAPID Negative (Negative)
[2019-11-04] MEDS: LOSARTAN 50 MG TABLET 100 MG PO (17:46)
[2019-11-04] MEDS: SODIUM CHLORIDE 0.9% FLUSH 10 ML IV (21:21)
--- NOTE | 2019-11-04 23:47 | PC.NURSE ---
Addendum entered by Yael Mclean R.N. 11/05/19 06:38: Slept between being repositioned q2h. Declines offer of pain medication this morning. Original Note: Patient is alert and oriented. Breath sounds with crackles in left LL; RA sat 95%. HRR; last telemetry reading was SR. Denies nausea. BT present and is passing flatus but has not had a BM since 10/30; did receive Colace + Miralax + Senna earlier today but is refusing suppository at this time. Urostomy patent; stoma is beefy red and urine is clear yellow but odorous. Aquacel dressing to left hip is intact with minimal drainage; hemovac site dressing with serosanguinous drainage but no leakage. Dressings to left elbow are intact with small amount drainage noted. Bruising on bilateral UE along with scabbed skin tear on right forearm. Currently denies pain. Bilateral calf SCD's placed. Is needing assistance to reposition but able to help. Reportedly was up today with walker and 2 assist; gait not assessed at this time. Fall risk score is high and bed alarm is activated.
[2019-11-05 06:00] VITALS: BP 106/55; PULSE 70; RESP 18; TEMP 36.4; O2SAT 95
[2019-11-05] MEDS: LEVOTHYROXINE 100 MCG TABLET 200 MCG PO (06:07)
[2019-11-05 06:53] LABS: Add Manual Diff / Slide Review NO; Basophils Absolute Auto 100 /uL (0-100); Eosinophils Absolute Auto 800 /uL (0-450); Eosinophils Percent Auto 8.1 % (2-4); Hematocrit 23.9 % (41-53); Hemoglobin 7.9 g/dL (13.5-17.5); Lymphocytes Absolute Auto 1000 /uL (1100-4500); Lymphocytes Percent Auto 9.4 % (25-40); Mean Corpuscular Volume 75.8 fL (80-100); Monocytes Absolute Auto 1400 /uL (0-900); Monocytes Percent Auto 13.5 % (3-14); Neutrophils Absolute Auto 7100 /uL (1500-7000); Platelet Count 232 X10^3/uL (150-400); Red Blood Cell Count 3.15 X10^6/uL (4.5-5.9); Red Cell Distribution Width 15.1 % (11.6-14.8); White Blood Cell Count 10.5 X10^3/uL (4.5-11.0)
[2019-11-05 07:04] LABS: BUN Creatinine Ratio 26.1 (6-22); Blood Urea Nitrogen 23 mg/dL (9-20); Calcium 8.4 mg/dL (8.4-10.2); Carbon Dioxide 28 mmol/L (22-32); Chloride 97 mmol/L (98-107); Estimated Glomerular Filt Rate > 60.0 mL/min (>60); Glucose 92 mg/dL (80-110); HEMOLYSIS < 15 (0-50); Potassium 4.8 mmol/L (3.4-5.1); Sodium 127 mmol/L (137-145)
[2019-11-05] MEDS: ACETAMINOPHEN 325 MG TABLET 975 MG PO (08:18)
[2019-11-05] MEDS: ASPIRIN EC 81 MG TABLET PO (08:20)
[2019-11-05] MEDS: APIXABAN 5 MG TABLET PO (08:20)
[2019-11-05] MEDS: FERROUS GLUCONATE 324 MG TABLET PO (08:20)
[2019-11-05] MEDS: DOCUSATE 100 MG CAPSULE PO (08:20)
[2019-11-05] MEDS: AMLODIPINE 5 MG TABLET 10 MG PO (08:20)
[2019-11-05 08:23] VITALS: BP 129/72; PULSE 78
[2019-11-05] MEDS: SODIUM CHLORIDE 0.9% FLUSH 10 ML IV (08:23)
[2019-11-05] MEDS: PREGABALIN 75 MG CAPSULE 150 MG PO (08:23)
[2019-11-05] MEDS: SENNOSIDES 8.6 MG TABLET PO (08:23)
[2019-11-05] MEDS: METOPROLOL ER 25 MG TABLET PO (08:23)
[2019-11-05] MEDS: polyethylene glycoL 3350 17 GM POWD.PACK PO (08:23)
--- NOTE | 2019-11-05 08:39 | PC.NURSE ---
Addendum entered by Faiza Mendez R.N. 11/05/19 13:51: IV removed and tele d/c'd for discharge. Patient tolerated well. Addendum entered by Faiza Mendez R.N. 11/05/19 13:49: Attempted to find patients glasses this AM. Linen bins went to the basement this morning. Left a message with the facility who supplies and cleans linens. Original Note: Patient A/Ox4, LLE CMS intact, patient reports mild LLE calf tenderness with palpitation, no erythema or edema noted, denies tenderness with movement. Patient reports hip pain 2/10, CMS intact, dsg has two dime sized areas of shadow drainage, otherwise CDI, pulled hemovac dressing has moderate serosang drainage. LE pulses equal bilaterally. Patient able to lift LLE but not against resistant. Urostomy intact, stoma red and beefy. SCD's on. Tele on. IV flushed, dsg CDI.
--- NOTE | 2019-11-05 09:22 | DI.US.S_ITS ---
PROCEDURE: US PERIPH VENOUS LOW EXTREM LT INDICATIONS: LEFT CALF PAIN, R/O DVT TECHNIQUE: Real-time imaging, as well as color and pulse Doppler interrogation, were performed of the lower extremity deep veins from the inguinal ligament to the popliteal fossa. COMPARISON: None. FINDINGS: The common femoral, femoral and popliteal veins are normally compressible, and free of intraluminal thrombus. Color and pulse Doppler demonstrate normal phasic intraluminal flow. There is normal augmentation response to distal compression maneuver. IMPRESSION: No evidence of left lower extremity DVT. Dictated by: Jeronimo Rosario M.D. on 11/05/2019 at 11:19 Approved by: Jeronimo Rosario M.D. on 11/05/2019 at 11:19
--- NOTE | 2019-11-05 09:24 | PM.PNPO.1 ---
Subjective Subjective Date Patient Seen: 11/05/19 Time Patient Seen: 09:24 Interval history: POD #2 s/p left unipolar arthroplasty with Dr. Lepe. Gianluca worked with physical therapy yesterday and out of bed to a chair. He really has minimal hip pain. He is complaining of left foot pain today. Hospitalist is ordering bedside ultrasound. Exam Vital Signs (past 8 hours): - 11/05/19 06:00 11/05/19 08:23 Temperature 97.5 F L Pulse Rate 70 78 Respiratory Rate 18 Blood Pressure 106/55 L 129/72 Pulse Oximetry 95 Oxygen Delivery Method Room Air Oxygen Flow Rate 0 Narrative Exam Narrative: Patient lying in bed in no acute distress. Alert orient x3. Calves are soft, compressible, nontender bilaterally. SCDs on and functioning. He is able to actively dorsiflex and plantar flex. Aquacel dressing on the left hip is CDI. Sensation intact light touch throughout bilateral lower extremities. Objective Labs Result Diagrams: 11/05/19 06:47 11/05/19 06:47 Labs: Laboratory Results - last 24 hr 10/31/19 11/04/19 11/05/19 15:00 16:37 06:47 WBC 10.5 RBC 3.15 L Hgb 7.9 L Hct 23.9 L MCV 75.8 L MCH 25.0 L MCHC 33.0 RDW 15.1 H Plt Count 232 Neut % (Auto) 68.0 Lymph % (Auto) 9.4 L [place] % (Auto) 13.5 Eos % (Auto) 8.1 H Baso % (Auto) 1.0 Neut # (Auto) 7100 H Lymph # (Auto) 1000 L [place] # (Auto) 1400 H Eos # (Auto) 800 H Baso # (Auto) 100 Sodium Potassium Chloride Carbon Dioxide BUN Creatinine Estimated GFR BUN/Creatinine Ratio Glucose Calcium Urine Osmolality 377 COVID-19 PCR Negative 11/05/19 06:47 WBC RBC Hgb Hct MCV MCH MCHC RDW Plt Count Neut % (Auto) Lymph % (Auto) [place] % (Auto) Eos % (Auto) Baso % (Auto) Neut # (Auto) Lymph # (Auto) [place] # (Auto) Eos # (Auto) Baso # (Auto) Sodium 127 L Potassium 4.8 Chloride 97 L Carbon Dioxide 28 BUN 23 H Creatinine 0.88 Estimated GFR > 60.0 BUN/Creatinine Ratio 26.1 H Glucose 92 Calcium 8.4 Urine Osmolality COVID-19 PCR Assessment & Plan Post-op Postoperative Procedures: Procedures Operation Date: 11/03/19 07:45 Actual Procedures Side Surgeon p Unipolar Hip Left Jaylene Noy Lepe MD Patient is orthopedically stable. He will need to continue to work with physical therapy as he is mobilizing slowly. He will need to follow posterior hip precautions. Remain on Eliquis for VTE prophylaxis. Awaiting ultrasound results to rule out DVT. Discharge per hospitalist.
--- NOTE | 2019-11-05 09:30 | P.DS_ITS ---
History of Present Illness History of Present Illness Date Patient Seen: 10/31/19 Chief complaint: Fall, L Hip pain Narrative: Written by Norris HILL: Mr. Francisco J Albarran is an 84-year-old male history significant for bladder cancer status post ileocecal conduit with urostomy, prostate cancer, thyroid cancer status post thyroidectomy, hypothyroidism, nephrolithiasis, coronary artery disease, hypertension, vertigo, peripheral neuropathy and long-term anticoagulation who presents to the ER with complaints of left hip pain. 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 The patient states he landed on his left hip but did strike his head but did not lose consciousness and denies head pain neck pain or back pain. The patient was unable to get up related to pain was brought to the ER by EMS. Prior to today's events the patient has been in his usual state reports fevers or chills and no COVID-19 exposures. He has a history of cardiac disease and denies complaints of chest pain or palpitations. He reports no shortness of breath though he states he does not have activity tolerance he used to. He denies complaints cough or wheezing. He has no complaints epigastric pain or abdominal pain and has abdominal hernia from prior laparotomy for bladder and prostate cancer. He has an ileostomy that is draining normally without complication. He does report intermittent constipation for which he routinely takes stool softener and his last BM was this morning. Upon arrival the ER the patient has a temperature 99.1?, heart rate 72, blood pressure 140/72, respirations of 18 saturating 97% air. Imaging is obtained of the left hip which demonstrates impacted mildly displaced is left femoral neck fracture. Twelve lead EKG demonstrates sinus rhythm with heart rate of 60 beats per minute without ectopy, left anterior fascicular block no evidence of ischemia or infarct. On laboratory analysis his white count of 7.7. Hemoglobin 9.5, hematocrit of 29.1 and platelets of 274. He has a PT 16.4, INR 1.4 and a PTT of 34. His MCV is 75.9 MCH is 24 8 his electrolytes are all within normal limits with a potassium of 4.8 and a magnesium 0.18. His BUN is 13 is creatinine 0.84 with a nonfasting glucose 114. His LFTs are all within normal range with an albumin of 3.6. On urinalysis urine is found to be slightly cloudy with pH 7.0, specific gravity 1.015 with 1+ occult blood, positive for nitrates and leukocyte esterase with wbc's and many bacteria. Samples reflexed to culture. In the ER patient received morphine 2 mg normal saline 1500 cc. Orthopedic consult is obtained and patient is admitted to the medicine service for left hip fracture. Discharge Providers Provider Date of admission: 10/31/19 16:55 Discharge Date: 11/05/19 Primary care physician: SERGIO Hooper Consults: 10/31/19 19:43 Consult to Dietitian, Adult Routine Comment: Reason For Exam: Pathologic hip fracture, osteoporosis Consult to Discharge Planning Routine Comment: 10/31/19 21:33 Consult to Orthopedic Surgery Routine Comment: Consulting Provider: Jaylene Lepe Reason for consultation: Closed impacted left femoral neck fracture Has provider been notified: Yes 11/03/19 11:40 Consult to Discharge Planning Routine Comment: Consult to Physical Therapy Evaluate & Treat Comment: Physician Instructions: post op MARLON protocol Consult to Respiratory Therapy Evaluate & Treat Comment: Physician Instructions: Evaluate and treat 11/04/19 09:25 Consult to Occupational Therapy Evaluate & Treat Comment: Physician Instructions: Evaluate and treat Discharge provider: Allison Suh DO Summary Hospital Course Discharge Diagnosis: 1. Acute pathological left femoral neck fracture, status post left hemiarthroplasty, present on admission. Active. 2. Acute blood loss anemia on anemia of chronic disease, present on admission. Improving. 3. Hyponatremia, acute on chronic, present on admission. Acute portion resolved. 4. Hypertension, chronic, present on admission. Stable. 5. CAD status post GA, chronic, present on admission. Stable. 6. Long-term anticoagulation with Eliquis, chronic, present on admission. Stable. 7. Secondary hypothyroidism, chronic, present on admission. Stable. 8. Peripheral neuropathy, chronic, present on admission. Stable. 9. History of bladder and prostate cancer status post ileocecal conduit and urostomy with asymptomatic bacteriuria, chronic, present on admission. Stable. Hospital Course: Francisco J Albarran is an 84-year-old male with a past medical history significant for bladder cancer status post ileocecal conduit with urostomy, prostate cancer, thyroid cancer status post thyroidectomy, hypothyroidism, nephrolithiasis, coronary artery disease, hypertension, vertigo, peripheral neuropathy and long- term anticoagulation who presented to the ED with left hip pain after ground level fall. 1. Acute pathological left femoral neck fracture, status post left hemiarthr oplasty, present on admission. Active. -Patient sustained a nonsyncopal slip and fall or his socks on linoleum floor landing on his left hip sustaining an impacted minimally displaced femoral neck fracture. -Consulted orthopedic surgery, Dr. Lepe, who performed left unipolar hip replacement. Continued postoperative, pain and VTE prophylaxis per ortho. Continued -Continued Tylenol 975 mg every 3 times daily, Lyrica 150 mg 3 times daily and oxycodone 5 mg every 3 hours as needed for severe breakthrough pain. -Continued calcium and vitamin D3 supplementation. Patient will need to be treated for osteoporosis as an outpatient per PCP or ortho. -Ordered venous Doppler ultrasound left lower extremity due to calf tenderness which was negative for DVT. -Continued physical and occupational therapy evaluation treatment. Continued weight-bearing as tolerated on left lower extremity with posterior hip precautions. Plan for orthopedic follow-up in 1-2 weeks with repeat x-rays. 2. Acute blood loss anemia on anemia of chronic disease, present on admission. Improving. -Initial hemoglobin 9.5 and hematocrit 29.1 with MCV 75.9 and MCH of 24.8. Baseline hemoglobin typically appears to run between 10 and 12. Hemoglobin is stable and slightly trending up at 7.9 due to acute blood loss and hemodilution from IV fluids. -Ferritin markedly low at 8 and iron panel demonstrates iron deficiency likely due to acute blood loss. Received Venofer 200 mg IV x 1. Started iron supplementation with ferrous gluconate 324 mg daily. -Continued to monitor H&H closely. Transfusion goal hemoglobin < 7.5. 3. Hyponatremia, acute on chronic, present on admission. Acute portion resolved. -Acute portion secondary from decreased PO intake from NPO status and did not continue home sodium chloride 1 g daily as it was not listed on medication reconciliation. Chronic portion secondary to high urine output through urostomy. -Patient with chronic hyponatremia with baseline sodium level 127 to 135. Initial sodium 124 and trended up back to baseline of 127. -Discontinued IV fluids once adequately hydrated. -Serum osmolality low at 266. Urine sodium normal at 40 and urine osmolality at 377. -Restarted sodium chloride 1 g daily at time of discharge once made aware that patient took this medication. -Continue to monitor sodium daily. 4. Hypertension, chronic, present on admission. Stable. -Patient with well controlled blood pressure, 140/72 upon arrival to the ER. -Initially held antihypertensives postoperatively due to low normal blood pressure. Once blood pressure normalized continued amlodipine 10 mg daily, losartan 100 mg daily in the evening, and metoprolol succinate 25 mg daily. 5. CAD status post GA, chronic, present on admission. Stable. -Patient has no chest pain, palpitations or shortness of breath. -Held aspirin 81 mg daily and Eliquis 5 mg twice daily initially pending surgical repair of left hip. Continued Eliquis 5 mg daily and aspirin 81 mg daily postoperatively. -Continued home atorvastatin 40 mg daily. 6. Long-term anticoagulation with Eliquis, chronic, present on admission. Stable. -Unclear reason for anticoagulation. No history of atrial fibrillation, blood clots, PAD/PVD. May be for VTE prophylaxis in the setting of multiple previous cancers now presumed to be in remission? -Eliquis was held initially pending surgical repair of his left hip. Continued Eliquis 5 mg daily postoperatively. 7. Secondary hypothyroidism, chronic, present on admission. Stable. -Patient previously had thyroid cancer status post thyroidectomy. -Continued home levothyroxine 200 mcg daily. 8. Peripheral neuropathy, chronic, present on admission. Stable. -Continued home Lyrica 150 mg 3 times daily. 9. History of bladder and prostate cancer status post ileocecal conduit and uro stomy with asymptomatic bacteriuria, chronic, present on admission. Stable. -Urine culture growing 2 colonies of gram negative bacilli. However, patient has no complaints of abdominal pain, fevers or chills and laboratory demonstrates normal WBC and procalcitonin negative, therefore likely colonized and hospital insurance representative of asymptomatic bactiuria. -No antibiotic therapy warranted at this time. Discontinued ceftriaxone. Exam Vital Signs (past 8 hours): - 11/05/19 06:00 11/05/19 08:23 Temperature 97.5 F L Pulse Rate 70 78 Respiratory Rate 18 Blood Pressure 106/55 L 129/72 Pulse Oximetry 95 Oxygen Delivery Method Room Air Oxygen Flow Rate 0 Narrative Exam Narrative: General: Elderly gentleman sitting in bed and in no acute distress, well- developed, well-nourished, appropriately interactive. HEENT: Normocephalic, atraumatic. External ears without defect. Pupils equal, round, and reactive to light. Anicteric sclerae, moist conjunctivae, and no lid lag. Oropharynx free of erythema and cobble stoning with moist mucosa. Pallor resolved. Neck: Supple with full range of motion. No lymphadenopathy or thyromegaly. Cardiovascular: Regular rhythm and rate without murmurs, rubs, or gallops appre ciated. Pulmonary: Clear to auscultation bilaterally without crackles, wheezes, or rhonchi. Normal respiratory effort with no use of accessory muscles. Abdomen: Soft, bowel sounds present, nontender, nondistended. No hepatosplenomegaly or masses appreciated. Urostomy in place with pink stoma. Extremities: No clubbing, cyanosis, or edema of other extremities. Left hip firm and mildly edematous with dressing in place with dried heme otherwise C/D/I. Hemovac drain removed. Skin: Normal temperature, turgor, and texture; no rash, ulcers, or subcutaneous nodules appreciated. Neurological: Cranial nerves grossly intact. Psychiatric: Normal mood and affect. Alert and oriented to person, place, and time. Objective Labs Result Diagrams: 11/05/19 06:47 11/05/19 06:47 Labs: Laboratory Results - last 24 hr 10/31/19 11/04/19 11/05/19 15:00 16:37 06:47 WBC 10.5 RBC 3.15 L Hgb 7.9 L Hct 23.9 L MCV 75.8 L MCH 25.0 L MCHC 33.0 RDW 15.1 H Plt Count 232 Neut % (Auto) 68.0 Lymph % (Auto) 9.4 L [place] % (Auto) 13.5 Eos % (Auto) 8.1 H Baso % (Auto) 1.0 Neut # (Auto) 7100 H Lymph # (Auto) 1000 L [place] # (Auto) 1400 H Eos # (Auto) 800 H Baso # (Auto) 100 Sodium Potassium Chloride Carbon Dioxide BUN Creatinine Estimated GFR BUN/Creatinine Ratio Glucose Calcium Urine Osmolality 377 COVID-19 PCR Negative 11/05/19 06:47 WBC RBC Hgb Hct MCV MCH MCHC RDW Plt Count Neut % (Auto) Lymph % (Auto) [place] % (Auto) Eos % (Auto) Baso % (Auto) Neut # (Auto) Lymph # (Auto) [place] # (Auto) Eos # (Auto) Baso # (Auto) Sodium 127 L Potassium 4.8 Chloride 97 L Carbon Dioxide 28 BUN 23 H Creatinine 0.88 Estimated GFR > 60.0 BUN/Creatinine Ratio 26.1 H Glucose 92 Calcium 8.4 Urine Osmolality COVID-19 PCR Discharge Plan Discharge Plan Patient Disposition: SNF Transfer to: [facility] Under care of provider: sr. director product management Discharge orders & Medications Prescriptions: New acetaminophen 325 mg Tablet 975 mg PO TID Qty: 90 RF: 0 polyethylene glycol 3350 17 gram Powder In Packet 17 gm PO DAILY PRN (Reason: Constipation) Qty: 30 RF: 0 bisacodyl 10 mg Suppository 10 mg [place] DAILY PRN (Reason: Constipation) Qty: 10 RF: 0 oxycodone 5 mg Tablet 5 mg PO Q3HR PRN (Reason: Pain, Moderate (4-6)) Qty: 15 RF: 0 ferrous gluconate 324 mg (38 mg iron) Tablet 324 mg PO DAILY Qty: 30 RF: 0 calcium carbonate-vitamin D3 [Oyster Shell Calcium-Vit D3] 500 mg(1,250mg) - 200 unit Tablet 1 ea PO BIDWM Qty: 60 RF: 0 Continued losartan 50 mg tablet 100 mg PO QPM RF: 0 atorvastatin 40 mg tablet 1 tab PO BEDTIME RF: 0 docusate calcium 240 mg capsule 1 cap PO BEDTIME RF: 0 aspirin 81 mg tablet,delayed release (DR/EC) 1 tab PO DAILY RF: 0 levothyroxine 200 mcg Tablet 200 mcg PO 0700 RF: 0 sennosides [senna] 8.6 mg Tablet 8.6 mg PO BID RF: 0 amlodipine 10 mg tablet 1 tab PO DAILY RF: 0 metoprolol succinate 25 mg tablet extended release 24 hr 1 tab PO DAILY RF: 0 diphenhydramine-acetaminophen [Acetaminophen PM] 25-500 mg Tablet 1 tab PO BEDTIME PRN (Reason: Insomnia) RF: 0 docusate sodium 100 mg Tablet 100 mg PO BID RF: 0 meclizine 25 mg tablet 25 mg PO Q8H PRN (Reason: Dizziness Or Vertigo) RF: 0 Eliquis 5 mg tablet 5 mg PO DAILY RF: 0 fluticasone propionate [Flonase Allergy Relief] 50 mcg/actuation [place],Suspension 1 spray INTRANASAL BID RF: 0 Daily Multivitamin 200-100-500 mcg Capsule 1 cap PO DAILY RF: 0 pregabalin 150 mg capsule 1 cap PO TID Qty: 10 RF: 0 sodium chloride 1 Gram tablet 1 g PO DAILY RF: 0 Follow up/Referrals: Arpita Fall ARNP [Primary Care Provider] - Jaylene Lepe MD [Physician] - 2 Weeks Diet/Activity/Treatments Diet: Low-fat, Low-sodium and Low-cholesterol Activity: Activity with full weight-bearing on left hip as tolerated with posterior hip precautions and physical therapy and occupational therapy. Other treatments: Patient will need hip X-ray POD 10 and telemedicine visit with Dr. Lepe at this time [facility] Reason for rehabilitation: Post-operative therapy Rehab type: Physical therapy and Occupational therapy Discharge Data Primary Care Provider: Arpita Fall
[2019-11-05 10:00] VITALS: BP 129/72; PULSE 78; RESP 16; TEMP 37.2; O2SAT 92
[2019-11-05] MEDS: BISACODYL 10 MG SUPP PR (10:03)
--- NOTE | 2019-11-05 11:56 | PT-IP ANOTE ---
Pt inappropriate for therapy this AM, per nursing d/t possible blood clot. Will assess this PM pending results.
--- NOTE | 2019-11-05 12:42 | CM.DPNOTE ---
DC Note DC order in place for SNF, patient and family now agreeable to DC to [facility], as was original plan. Updated [facility] and faxed signed med list, completed prescriptions and completed PASRR. w/c transport arranged for 1400 P: DC to [facility] via w/c today JW
--- NOTE | 2019-11-05 13:02 | PT.IPTN ---
Current Diagnoses Unspecified fracture of left femur, initial encounter for closed fracture (10/31/19) Surgery Performed Operation Date: 11/03/19 07:45 Actual Procedures p Unipolar Hip(Left) - Jaylene Lepe MD Physical Therapy Treatment Note M2 PT-IP Current Condition Start: 11/04/19 08:29 Freq: NEEDED Status: Active Protocol: Document 11/04/19 10:08 AB (Rec: 11/04/19 13:10 AB [id number]) Physical Therapy Current Condition Current Condition Evaluation Date 11/04/19 Treatment Diagnosis s/p L L MARLON posterior approach ; difficulty in walking Onset Date 10/31/19 Precautions Posterior Hip Precautions No Hip Flexion > 90 degrees,No Hip Internal Rotation,No Hip Adduction Weight Bearing Status Weight Bearing Status Weight Bear as Tolerated Allowed Weight Bearing Amount (enter % LLE WBAT or #) (%) M3 PT-IP Subjective Start: 11/04/19 08:29 Freq: NEEDED Status: Active Protocol: Document 11/05/19 12:45 KS (Rec: 11/05/19 14:44 KS [id number]) Subjective Physical Therapy Visit Type Type Treatment Note Visit Start Time 12:45 Visit Stop Time 13:02 Total Visit Minutes 17 Number of INSTRUMENTATION TECHNICIAN Visits 1 Physical Therapy Visit Comments Patient Comments Pt agreeable to work w/ therapy. M4 PT-IP Mobility and Gait Start: 11/04/19 08:29 Freq: NEEDED Status: Active Protocol: Document 11/05/19 12:45 KS (Rec: 11/05/19 14:44 KS [id number]) PT-Bed Mobility Assessment Supine to Sit Supine to Sit Minimal Assistance,Head of Bed Elevated,Bedrails Scooting Scooting to Edge of Bed Moderate Assistance PT-Transfer Assessment Sit to and From Stand Sit to and from Stand Minimal Assistance,1 Person Assistance,Use of Upper Extremities Equipment Transfer Assistive Device Gait Belt,Front Wheeled Walker Orthotic/Prosthetic Devices or Brace: No Transfers Transfer Destination Chair Transfer Technique Stand Step Pivot Transfer Ability Level of Assist Minimal Assistance,1 Person Assistance,Use of Upper Extremities Comments Mobility Comments Pt in bed upon arrival from therapy and agreeable to transfer to chair. Pt Min A for sup<>sit w/ HOB elevated, Mod A and cues for scooting to EOB. Once EOB, pt had post lean, needing Min A to recover . Pt Min A and cues for sit<> stand from bed w/ FWW. Pt then performed stand step pivot transfer to chair w/ Min A and cues for sequencing and FWW management. Min A and cues for slow descent for stand<>sit in chair. Pt then received phone call and asked to be finished w/ therapy. Pt left reclined in chair w/ all needs in reach. Gait Assessment Gait Gait Assistance Required: Minimum Assistance,1 Person Assist Distance (Feet) 3 Able to Maintain Weight Bearing Status Yes During Gait Assistive Devices Assistive Device Gait Belt,Front Wheeled Walker Gait Deviations General Gait Pattern Antalgic,Flexed Trunk Factors Limiting Gait Function Factors Limiting Gait Function Decreased Activity Tolerance, Decreased Strength,Difficulty Following Directions,Limited Range of Motion,Poor Balance, Poor Safety Awareness, Respiratory Distress Comments Gait Comments Stand step pivot Min A and cues PT-Balance Assessment Sitting Balance and Reactions Static Sitting Balance Ability Fair Dynamic Sitting Balance Ability Poor Standing Balance and Reactions Static Standing Balance Ability Fair Dynamic Standing Balance Ability Poor Device Used FWW M5 PT-IP Objective Assessments Start: 11/04/19 08:29 Freq: NEEDED Status: Active Protocol: Document 11/04/19 10:08 AB (Rec: 11/04/19 13:10 AB [id number]) Orientation Orientation/Cognition Level of Alertness Alert Orientation Name,Place,Situation Safety Awareness Decreased Safety Awareness Memory Description Short Term Impaired Gross Range of Motion Lower Extremity ROM Assessment Within Functional Limits Strength Lower Extremity Strength Assessment Left Impaired Hip 3+/5 Knee 3+/5 Coordination Assessment Gross Coordination Gross Coordination WNL Sensation Assessment Sensation Gross Sensation WNL Muscle Tone Muscle Tone WNL Yes M6 PT-IP Treatment Start: 11/04/19 08:29 Freq: NEEDED Status: Active Protocol: Document 11/05/19 12:45 KS (Rec: 11/05/19 14:44 KS [id number]) Physical Therapy Treatment Education Education Provided Precautions,Safety M7 PT-IP Assessment and Plan Start: 11/04/19 08:29 Freq: NEEDED Status: Active Protocol: Document 11/05/19 12:45 KS (Rec: 11/05/19 14:44 KS [id number]) PT Summary Assessment and Plan Potential Rehabilitation Potential Good Summary Progress Towards Goals Slow Progress due to Medical Issues,Slow Progress - Other Assessment Summary Pt able to tolerate transfer from bed to chair this afternoon. Min A for sup<>sit w/ HOB elevated, post lean of trunk when sitting w/ Min A required to recover. Mod A for scooting to EOB, Min A and cues for sit<>stand w/ FWW and Min A and cues for stand step pivot to chair. Pt has low tolerance for activity and will benefit from SNF to improve strength and functional mobility. Goals Bed Mobility Goal Independent Transfer Goal Independent,Front Wheeled Walker Gait Goal Independent,Front Wheel Walker Gait Distance 150 Other Goals up/down 4 steps 1 rail SBA Days to Meet Goals 5 Frequency of Treatment Frequency Of Treatment Twice a Day Treatment Plan Physical Therapy Treatment Plan Bed Mobility Training,Transfer Training,Gait Training, Therapeutic Exercise,Balance Retraining,Post Op Education, Discharge Planning,Hot or Cold Pack,Neuromuscular Re-ed, Coordination Retraining,Manual Therapy Recommendations To Nursing Amount of Assist Needed 1 Person Assist Discharge Recommendations PT Discharge Recommendations SNF Rehab Transportation Needs at Discharge Private Vehicle,Wheelchair/ Cabulance
== END 2019-11-05 14:25 | DRG 470 ==
LOC: ED 16:35 → AC 16:56
PROVIDERS: Internal Medicine; Nurse Practitioner Adult Health; Orthopaedic Surgery; Admitting Provider Internal Medicine; Emergency Provider Nurse Practitioner Family; PCP Nurse Practitioner Gerontology; Referring Provider Nurse Practitioner Family; Visit Provider Internal Medicine
PROC: 0SRS0JZ Replacement of Left Hip Joint, Femoral Surface with Synthetic Substitute, Open Approach (ICD-10-PCS; CPT 27125; principal; 2019-11-03 07:45)
DX: M84.452A Pathological fracture, left femur, initial encounter for fracture (principal); E87.1 Hypo-osmolality and hyponatremia; D62 Acute posthemorrhagic anemia; Z85.51 Personal history of malignant neoplasm of bladder; Z85.850 Personal history of malignant neoplasm of thyroid; E89.0 Postprocedural hypothyroidism; I25.10 Atherosclerotic heart disease of native coronary artery without angina pectoris; D64.9 Anemia, unspecified; I10 Essential (primary) hypertension; M79.662 Pain in left lower leg; G62.9 Polyneuropathy, unspecified; Z96.641 Presence of right artificial hip joint; Z79.01 Long term (current) use of anticoagulants; W01.0XXA Fall on same level from slipping, tripping and stumbling without subsequent striking against object, initial encounter; Y92.009 Unspecified place in unspecified non-institutional (private) residence as the place of occurrence of the external cause; Z11.59 Encounter for screening for other viral diseases; Z87.891 Personal history of nicotine dependence
CPT/HCPCS: 36415; 73502; 80048; 80053; 81001; 81003; 82728; 83540; 83550; 83735; 83930; 83935; 84145; 84300; 85014; 85018; 85025; 85610; 85730; 87077; 87086; 87186; 87635; 93005; 93971; 96361; 96374; 97116; 97162; 97530; 99284; C1776; C9290; J0171; J0690; J1756; J2250; J2270; J2704; J3010

== ENCOUNTER 2019-11-07 13:03 | Emergency (ER) | payer MEDICARE, OTHER, SELFPAY ==
[2019-10-31 20:43] VITALS: BMI 26.5
[2019-11-07] VITALS (10 sets, daily range): BP systolic 90–128; BP diastolic 50–67; PULSE 80–90; RESP 12–28; TEMP 36.2; O2SAT 93–98; BMI 27.2
--- NOTE | 2019-11-07 13:43 | DI.RAD.S_ITS ---
PROCEDURE: XR HIP W PEL IF DONE LT 2V INDICATIONS: s/p hip replacement, missing a drain tube TECHNIQUE: AP pelvis with lateral view(s) of the left hip(s). COMPARISON: [facility], , XR HIP W PEL IF DONE LT 2V, 11/03/2019, 10:31. FINDINGS: Bones: Patient is status post left total hip arthroplasty. There is also prior right total hip arthroplasty. Bilateral hip alignment is anatomic. Numerous surgical clips are noted in lower pelvis. No other surgical hardware is seen. Left hip alignment is anatomic. No fractures or dislocations. Pelvic ring appears intact. No suspicious bony lesions. Soft tissues: The visualized bowel gas pattern is normal. No suspicious soft tissue calcifications. IMPRESSION: Post left total hip arthroplasty changes with anatomic alignment. No gross hardware complication. No acute fracture or dislocation. Previous drainage catheter in left hip soft tissue is no longer seen. Dictated by: Joseph Nuñez M.D. on 11/07/2019 at 14:45 Approved by: Joseph Nuñez M.D. on 11/07/2019 at 14:46
--- NOTE | 2019-11-07 13:51 | PC.NURSE ---
Patient status post hip surgery 6 days ago, discharged from 11/04. Report from transport is at some point drainage removed. [facility] collect on delivery clerk reported uncontrolled bleeding and redressed at [facility]. Upon arrival small amount of serous drainage on bandage. Patient denies any other complications other then fatigue. Appears generally pale and BP 92/53. Denies dizziness, lightheaded, RACHEL, or SOB. Denies pain.
[2019-11-07 14:03] LABS: Add Manual Diff / Slide Review NO; Basophils Absolute Auto 0 /uL (0-100); Basophils Percent Auto 0.4 % (0-2); Eosinophils Absolute Auto 600 /uL (0-450); Eosinophils Percent Auto 4.9 % (2-4); Hematocrit 26.2 % (41-53); Hemoglobin 8.4 g/dL (13.5-17.5); Lymphocytes Absolute Auto 600 /uL (1100-4500); Mean Corpuscular HGB Conc 32.1 % (30-36); Mean Corpuscular Hemoglobin 24.4 PG (26-34); Mean Corpuscular Volume 76.1 fL (80-100); Monocytes Absolute Auto 800 /uL (0-900); Neutrophils Absolute Auto 9500 /uL (1500-7000); Neutrophils Percent Auto 82.7 % (50-75); Platelet Count 340 X10^3/uL (150-400); Red Blood Cell Count 3.44 X10^6/uL (4.5-5.9); Red Cell Distribution Width 15.1 % (11.6-14.8); White Blood Cell Count 11.5 X10^3/uL (4.5-11.0)
[2019-11-07 14:04] LABS: INR 1.9 (0.9-1.3); Prothrombin Time 21.6 SECONDS (10.1-12.7)
[2019-11-07 14:06] LABS: PTT Partial Thromboplastin Tim 25 SECONDS (26.4-36.2)
[2019-11-07 14:08] LABS: Alanine Aminotransferase 17 IU/L (<50); Albumin 3.1 g/dL (3.5-5.0); Albumin Globulin Ratio 1.1 (1.0-2.8); Alkaline Phosphatase 60 U/L (38-126); Aspartate Aminotransferase 46 IU/L (17-59); BUN Creatinine Ratio 24.8 (6-22); Bilirubin Total 0.6 mg/dL (0.2-1.3); Blood Urea Nitrogen 25 mg/dL (9-20); Calcium 8.8 mg/dL (8.4-10.2); Carbon Dioxide 28 mmol/L (22-32); Chloride 94 mmol/L (98-107); Estimated Glomerular Filt Rate > 60.0 mL/min (>60); Globulin 2.8 g/dL (1.7-4.1); Glucose 163 mg/dL (80-110); HEMOLYSIS 41 (0-50); Potassium 4.8 mmol/L (3.4-5.1); Sodium 129 mmol/L (137-145); Total Protein 5.9 g/dL (6.3-8.2)
[2019-11-07] MEDS: SODIUM CHLORIDE 0.9% 250 ML 1000 ML IV (14:47)
--- NOTE | 2019-11-07 15:07 | PC.NURSE ---
Checked on patient after completing fluids. Drainage from operative site has increased and bandage is now saturated. Informed [employer] INSPECTOR Francois of change in patient condition. Vitals remain stable with BP 114/59 and pulse 81. Patient denies change in LOC, dizziness, or SOB.
--- NOTE | 2019-11-07 17:16 | ED.SKABFB ---
HPI - Skin/Abscess/Foreign Bdy <SERGIO Yates - Last Filed: 11/08/19 01:13> General Chief complaint: Skin/Abscess/Foreign Body Stated complaint: Bleeding Time Seen by Provider: 11/07/19 13:38 Source: EMS Mode of arrival: EMS Limitations: no limitations History of Present Illness HPI narrative: This is a 84-year-old male who had left hip surgery on 11/03/[address] Lepe at from a non-syncopal fall and discharge to [facility] rehab presents to ED with medics with chief complaint of surgical site bleeding. Patient is currently taking Eliquis and baby aspirin for history of AFib. According to staff at [facility], there were not able to visualize drainage from surgical site. Patient reports he had not seen any drainage after he was discharged to [facility]. Patient denies increasing pain, fever, chills, nausea or vomiting or lightheadedness. Patient was diagnosed with anemia during last admission for surgery and hyponatremia. Patient reports he is currently taking iron pill and sodium chloride pill daily. Patient reports he had started physical therapy without difficulty. Related Data Home Medications Medication Instructions Recorded Confirmed aspirin 1 tab PO DAILY 11/07/17 10/31/19 atorvastatin 1 tab PO BEDTIME 11/07/17 10/31/19 docusate calcium 1 cap PO BEDTIME 11/07/17 10/31/19 losartan 100 mg PO QPM 11/07/17 10/31/19 amlodipine 1 tab PO DAILY 06/11/18 10/31/19 diphenhydramine-acetaminophen 1 tab PO BEDTIME PRN 06/11/18 10/31/19 [Acetaminophen PM] docusate sodium 100 mg PO BID 06/11/18 10/31/19 meclizine 25 mg PO Q8H PRN 06/11/18 10/31/19 metoprolol succinate 1 tab PO DAILY 06/11/18 10/31/19 sennosides [senna] 8.6 mg PO BID 06/11/18 10/31/19 levothyroxine 200 mcg PO 0708/09/18 10/31/19 Daily Multivitamin 1 cap PO DAILY 10/31/19 10/31/19 Eliquis 5 mg PO DAILY 10/31/19 10/31/19 fluticasone propionate [Flonase 1 spray INTRANASAL BID 10/31/19 10/31/19 Allergy Relief] sodium chloride 1 g PO DAILY 11/05/19 11/05/19 Previous Rx's Medication Instructions Recorded acetaminophen 975 mg PO TID #90 tab 11/05/19 bisacodyl 10 mg NJ DAILY PRN #10 ea 11/05/19 calcium carbonate-vitamin D3 1 ea PO BIDWM #60 tab 11/05/19 [Oyster Shell Calcium-Vit D3] ferrous gluconate 324 mg PO DAILY #30 tab 11/05/19 oxycodone 5 mg PO Q3HR PRN #15 tab 11/05/19 polyethylene glycol 3350 17 gm PO DAILY PRN #30 ea 11/05/19 pregabalin 1 cap PO TID #10 cap 11/05/19 Allergies Allergy/AdvReac Type Severity Reaction Status Date / Time No Known Drug Allergies Allergy Verified 11/07/19 13:06 Review of Systems <SERGIO Yates - Last Filed: 11/08/19 01:13> Review of Systems Narrative: General: Denies fever, chills, fatigue, malaise, sweats. HEENT: Denies sinus pain, ear pain, sore throat, difficulty swallowing, dizziness. Respiratory: Denies dyspnea, cough, wheezing, hemoptysis, sputum. Cardiovascular: Denies chest pain, palpitations, orthopnea, edema. Gastrointestinal: Denies nausea, vomiting, abdominal pain, diarrhea, constipation, melena. : Denies dysuria, frequency, incontinence, hematuria, urinary retention. Has a urostomy after bladder CA. Musculoskeletal: See HPI Skin: See HPI Neurologic: Denies weakness, headache, numbness, change in speech, confusion, seizures, incoordination. Psychiatric: No concerning psychosocial issues. 12-point review of systems is negative except for those stated above. Patient History <SERGIO Yates - Last Filed: 11/08/19 01:13> Medical History Bladder cancer (Acute) Coronary artery disease (Acute) Hypertension (Acute) Hyponatremia (Acute) Hypothyroid (Acute) Kidney stones (Acute) Prostate cancer (Acute) Thyroid cancer (Acute) Surgical History H/O colectomy (Acute) H/O thyroidectomy (Acute) History of appendectomy (Acute) History of urostomy (Acute) S/P hip replacement (Acute) Family History Father Alcoholism Mother Alcoholism Social History household members: spouse Smoking Status: Former smoker alcohol intake: former substance use type: does not use Smoking Status: Former smoker alcohol intake frequency: other Substance Use Type: does not use Exam <SERGIO Yates - Last Filed: 11/08/19 01:13> Narrative Exam Narrative: GEN: Alert, oriented x 3, well appearing and nourished, and in no acute distress, pale in color. Head: Normal cephalic, atraumatic. No scalp or temporal tenderness, palpable mass or rash. EYES: Pupils are equal, round, and reactive to light and accommodation. Extraocular muscles are intact bilaterally. There is no subconjunctival hemorrhage, exudate and sclera non-icteric. ENT: Hearing grossly intact. Nose without bleeding, purulent discharge. Airway patent. Neck: Trachea in midline. No JVD, non-tender without lymphadenopathy. No masses or thyroid megaly. Supple, non-tender and no meningeal signs. CARDIAC: Normal regular rate and rhythm without murmurs, gallops, or rubs. No chest wall tenderness. No peripheral edema, cyanosis or pallor. Capillary refill is less than 2 seconds. RESPIRATORY: Lungs are clear to auscultate bilaterally. No cough, wheezes, rales, or rhonchi. No stridor, respiratory distress, increase work of breathing, or accessary muscle used. ABD: Abdomen soft, nontender and non-distended. No guarding or rebound tenderness to palpate. Bowel sounds are normal in all 4 quadrants. There is no palpable masses or organomegaly. EXT: Full painless ROM of all extremities with no loss of sensation, strength, effusion or edema. SKIN: A long surgial incision in left hip with slow oozing sanguinous drainage. Surrounding area without significant redness, warmth, purulent discharge. Moderate swelling on the surgical site. One small puncture like surgical wound and left groin without redness, warmth, swelling. Warm, dry, pale color for patient. No erythema, lesions or rash over visible areas. BACK: Nontender without deformity or crepitance. No flank tenderness. NEUROLOGICAL: Alert and oriented to place, time and person. Sensation and motor function intact bilaterally. No facial droops, dysphasia. PSYCHIATRIC: Good judgement and reason, without hallucinations, abnormal affect or abnormal behaviors during the examination. Initial Vital Signs Initial Vital Signs: Vital Signs Temperature 97.2 F L 11/07/19 13:04 Pulse Rate 85 11/07/19 13:04 Respiratory Rate 12 11/07/19 13:04 Blood Pressure 90/50 L 11/07/19 13:04 Pulse Oximetry 98 11/07/19 13:04 <Shauna Evans DO - Last Filed: 11/08/19 11:20> Initial Vital Signs Initial Vital Signs: Vital Signs Temperature 97.2 F L 11/07/19 13:04 Pulse Rate 85 11/07/19 13:04 Respiratory Rate 12 11/07/19 13:04 Blood Pressure 90/50 L 11/07/19 13:04 Pulse Oximetry 98 11/07/19 13:04 Scores <RAIN YatesP - Last Filed: 11/08/19 01:13> GCS Tish coma scale eye opening: Spontaneous Tish coma scale verbal response: Orientated Tish coma scale motor response: Obey commands [place] coma scale total score: 15 Course <RAIN YatesP - Last Filed: 11/08/19 01:13> Orders Ordered: Discontinued Medications Sodium Chloride (Normal Saline 0.9%) 250 mls @ 1,000 mls/hr IV BOLUS PRN PRN Reason: Fluid replacement Last Infusion: 11/07/19 15:07 Dose: 0 mls/hr Documented by: Admin: 11/07/19 14:47 Dose: 1,000 mls/hr Documented by: MALORIE Reevaluation(s) Reevaluation #1: The dressing that patient came in with marked with pen to assess increased bleeding upon arrival. The dressing was soaked through bed linen with slow oozing sanguinous bleeding. Time: 16:00 Consultations Consultation #1: Dr. Tierney consulted and recommended to contact Dr. Lepe for further recommendation Time: 15:00 Consultation #2: Dr. Lepe paged through ortho clinic without return call. Dr. Lepe cellphone was contacted and left message. No returned phone call. Third attempt made and found out that Dr. Lepe is unreachable at this time. Time: 16:32 Consultation #3: Dr. Tierney consulted again and he recommended to have patient to coming to clinic tomorrow for an assessment. Time: 17:25 Vital Signs Vital signs: Vital Signs - 8 hr 11/07/19 17:00 Pulse Rate 84 Respiratory Rate 28 H Blood Pressure 128/67 Pulse Oximetry 95 <Shauna Evans DO - Last Filed: 11/08/19 11:20> Orders Ordered: Discontinued Medications Sodium Chloride (Normal Saline 0.9%) 250 mls @ 1,000 mls/hr IV BOLUS PRN PRN Reason: Fluid replacement Last Infusion: 11/07/19 15:07 Dose: 0 mls/hr Documented by: Admin: 11/07/19 14:47 Dose: 1,000 mls/hr Documented by: MALORIE Vital Signs Vital signs: Vital Signs - 8 hr 11/07/19 17:00 Pulse Rate 84 Respiratory Rate 28 H Blood Pressure 128/67 Pulse Oximetry 95 MDM - Skin/Abscess/Foreign Bdy <SERGIO Yates - Last Filed: 11/08/19 01:13> Differential Diagnosis Differential diagnosis: Likely cellulitis and other (Postsurgical infection, postsurgical bleeding who is on anticoagulant, s/p surgical hardware complication) Medical Records Attestation: I reviewed the patient's medical records. Lab Data Attestation: I reviewed the patient's lab results. Result diagrams: 11/07/19 13:39 11/07/19 13:39 Labs: Lab Results 11/07/19 11/07/19 11/07/19 Range/Units 13:39 13:39 13:39 WBC 11.5 H (4.5-11.0) X10^3/uL RBC 3.44 L (4.5-5.9) X10^6/uL Hgb 8.4 L (13.5-17.5) g/dL Hct 26.2 L (41-53) % MCV 76.1 L (80-100) fL MCH 24.4 L (26-34) PG MCHC 32.1 (30-36) % RDW 15.1 H (11.6-14.8) % Plt Count 340 (150-400) X10^3/uL Neut % (Auto) 82.7 H (50-75) % Lymph % (Auto) 5.0 L (25-40) % [facility] % (Auto) 7.0 (3-14) % Eos % (Auto) 4.9 H (2-4) % Baso % (Auto) 0.4 (0-2) % Neut # (Auto) 9500 H (6072-3613) /uL Lymph # (Auto) 600 L (3957-2882) /uL [facility] # (Auto) 800 (0-900) /uL Eos # (Auto) 600 H (0-450) /uL Baso # (Auto) 0 (0-100) /uL PT 21.6 H D (10.1-12.7) SECONDS INR 1.9 H (0.9-1.3) APTT 25 L D (26.4-36.2) SECONDS Sodium 129 L (137-145) mmol/L Potassium 4.8 (3.4-5.1) mmol/L Chloride 94 L (98-107) mmol/L Carbon Dioxide 28 (22-32) mmol/L BUN 25 H (9-20) mg/dL Creatinine 1.01 (0.66-1.25) mg/dL Estimated GFR > 60.0 (>60) mL/min BUN/Creatinine Ratio 24.8 H (6-22) Glucose 163 H (80-110) mg/dL Calcium 8.8 (8.4-10.2) mg/dL Total Bilirubin 0.6 (0.2-1.3) mg/dL AST 46 (17-59) IU/L ALT 17 (<50) IU/L Alkaline Phosphatase 60 (38-126) U/L Total Protein 5.9 L (6.3-8.2) g/dL Albumin 3.1 L (3.5-5.0) g/dL Globulin 2.8 (1.7-4.1) g/dL Albumin/Globulin Ratio 1.1 (1.0-2.8) Imaging Data XR-Hip/Pelvis LT: Radiologist's Impression: [address] [address] XRay Report Signed Patient: Francisco J Albarran WMR#: [id number] : 6Acct:[id number] Age/Sex: 84 / MDate of Service: 11/07/19 Loc: ED Accession Number: [id number] Procedure: XR hip w pel if done LT 2V Ordering Provider: Francois Hines PROCEDURE: XR HIP W PEL IF DONE LT 2V INDICATIONS: s/p hip replacement, missing a drain tube TECHNIQUE: AP pelvis with lateral view(s) of the left hip(s). COMPARISON: [facility], , XR HIP W PEL IF DONE LT 2V, 11/03/2019, 10:31. FINDINGS: Bones: Patient is status post left total hip arthroplasty. There is also prior right total hip arthroplasty. Bilateral hip alignment is anatomic. Numerous surgical clips are noted in lower pelvis. No other surgical hardware is seen. Left hip alignment is anatomic. No fractures or dislocations. Pelvic ring appears intact. No suspicious bony lesions. Soft tissues: The visualized bowel gas pattern is normal. No suspicious soft tissue calcifications. IMPRESSION: Post left total hip arthroplasty changes with anatomic alignment. No gross hardware complication. No acute fracture or dislocation. Previous drainage catheter in left hip soft tissue is no longer seen. Dictated by: Joseph Nuñez M.D. on 11/07/2019 at 14:45 Approved by: Joseph Nuñez M.D. on 11/07/2019 at 14:46 MDM Narrative Medical decision making narrative: This is a 84 year male who had recent left hip arthroplasty surgery done on 11/03/2019 from a fall and femoral neck fracture by Dr. eLpe. Patient was discharged to rehab at [facility] and started physical therapy session brought in to ED with postsurgical wound bleeding who take Eliquis and baby ASA daily and unable to locate drainage tube from the affected surgical site. Patient also has history of anemia and hyponatremia which has been corrected with iron pill with sodium chloride p.o. daily. Patient has no complaints at this time such as pain, fever/chills, tingling/numbness/weakness to affected leg. Patient is afebrile. Initially hypotensive as 90/50 with HR in 80's. Patient denies dizziness, chest pain, breathing difficulty. Hip x-ray shows anatomical alignment without gross hardware complications. There is no acute fractures or dislocations and previous drainage catheter is no longer seen. No suspicious bony lesions were seen. H&H is 8.4/26.2 which is improvement from when he was discharged [facility] on 11/05/19 with H/H of 7.9/23.9. WBC of 11.5 with slightly elevated neutrophil count of 9500. Physical exam is not consistent with cellulitis. There is no significant warmth, redness around the surgical site. There is no purulent discharge but sanguinous slow oozing from left hip incision site. Today's sodium was improved to 129 with chloride of 94. When patient was discharged his sodium was 127 with chloride of 97. Slightly elevated BUN of 25 and BUN/creatinine ratio of 24.8. Coag test indicates 1.9 INR with PTT of 25 and slightly elevated PT of 21.6 from 13.8 on 10/31/29. Dr. Tierney was consulted initially and he was recommended to contact Dr. Lepe. She is not condenser operator today and was not able to contact Dr. Lepe after several attempts made. Dr. Tierney contacted again for his recommendation and he advised for patient to follow-up tomorrow at the clinic. He recommended in 1st dressing on left hip. Patient's surgical wound site was dressed with surgery form and to abdominal pads. Consulted Dr. Evans with the lab findings, current medications, and xray test and physical findings. It was recommended to resume current medications since patient is taking a Eliquis for AFib and cardiac surgery. Patient also currently takes baby aspirin along Eliquis which is probably have an effect for bleeding. Patient informed the today's visit is and findings. Advised to follow up with Ortho tomorrow at the clinic. Return precautions were discussed with patient and patient verbalized understanding and agreement with treatment plan. <Shauna Evans, DO - Last Filed: 11/08/19 11:20> Lab Data Labs: Lab Results 11/07/19 11/07/19 11/07/19 Range/Units 13:39 13:39 13:39 WBC 11.5 H (4.5-11.0) X10^3/uL RBC 3.44 L (4.5-5.9) X10^6/uL Hgb 8.4 L (13.5-17.5) g/dL Hct 26.2 L (41-53) % MCV 76.1 L (80-100) fL MCH 24.4 L (26-34) PG MCHC 32.1 (30-36) % RDW 15.1 H (11.6-14.8) % Plt Count 340 (150-400) X10^3/uL Neut % (Auto) 82.7 H (50-75) % Lymph % (Auto) 5.0 L (25-40) % [facility] % (Auto) 7.0 (3-14) % Eos % (Auto) 4.9 H (2-4) % Baso % (Auto) 0.4 (0-2) % Neut # (Auto) 9500 H (8705-2791) /uL Lymph # (Auto) 600 L (5664-3348) /uL [facility] # (Auto) 800 (0-900) /uL Eos # (Auto) 600 H (0-450) /uL Baso # (Auto) 0 (0-100) /uL PT 21.6 H D (10.1-12.7) SECONDS INR 1.9 H (0.9-1.3) APTT 25 L D (26.4-36.2) SECONDS Sodium 129 L (137-145) mmol/L Potassium 4.8 (3.4-5.1) mmol/L Chloride 94 L (98-107) mmol/L Carbon Dioxide 28 (22-32) mmol/L BUN 25 H (9-20) mg/dL Creatinine 1.01 (0.66-1.25) mg/dL Estimated GFR > 60.0 (>60) mL/min BUN/Creatinine Ratio 24.8 H (6-22) Glucose 163 H (80-110) mg/dL Calcium 8.8 (8.4-10.2) mg/dL Total Bilirubin 0.6 (0.2-1.3) mg/dL AST 46 (17-59) IU/L ALT 17 (<50) IU/L Alkaline Phosphatase 60 (38-126) U/L Total Protein 5.9 L (6.3-8.2) g/dL Albumin 3.1 L (3.5-5.0) g/dL Globulin 2.8 (1.7-4.1) g/dL Albumin/Globulin Ratio 1.1 (1.0-2.8) Discharge Plan Departure Patient Disposition: Home Clinical Impression: Bleeding, Hyponatremia Anemia Qualifiers: Anemia type: unspecified type Qualified Code(s): D64.9 - Anemia, unspecified Discharge Date/Time: 11/07/19 18:49 Instructions: Anemia, DI for Hyponatremia, DI for Post-Surgical Bleeding Activity Restrictions/Additional Instructions: You have been diagnosed with [hyponatremia and anemia which she has improved since 2 days ago when you are discharged to home. Postsurgical bleeding on left hip. Surgery foam and abdominal pad dressing has been applied on affected site to help with bleeding. Consulted Dr. Tierney at [facility] and he would like to see you tomorrow the clean for an evaluation.]. What to do: *Take your medications as directed. Continue with her current medications. *Follow up with your primary care provider in 2-3 days, call for an appointment. Let them know you were seen in the ED and that we asked you to be seen in follow up. *Return to ED if you have any new, worsening, or concerning symptoms, such as [chest pain, breathing difficulty, unable to tolerate fluids, fever, increasing pain, warmth/is swelling/redness/purulent discharge on affected site or any acute concerns]. Prescriptions: No Action losartan 50 mg tablet 100 mg PO QPM RF: 0 atorvastatin 40 mg tablet 1 tab PO BEDTIME RF: 0 docusate calcium 240 mg capsule 1 cap PO BEDTIME RF: 0 aspirin 81 mg tablet,delayed release (DR/EC) 1 tab PO DAILY RF: 0 levothyroxine 200 mcg Tablet 200 mcg PO 0700 RF: 0 sennosides [senna] 8.6 mg Tablet 8.6 mg PO BID RF: 0 amlodipine 10 mg tablet 1 tab PO DAILY RF: 0 metoprolol succinate 25 mg tablet extended release 24 hr 1 tab PO DAILY RF: 0 diphenhydramine-acetaminophen [Acetaminophen PM] 25-500 mg Tablet 1 tab PO BEDTIME PRN (Reason: Insomnia) RF: 0 docusate sodium 100 mg Tablet 100 mg PO BID RF: 0 meclizine 25 mg tablet 25 mg PO Q8H PRN (Reason: Dizziness Or Vertigo) RF: 0 Eliquis 5 mg tablet 5 mg PO DAILY RF: 0 fluticasone propionate [Flonase Allergy Relief] 50 mcg/actuation [place],Suspension 1 spray INTRANASAL BID RF: 0 Daily Multivitamin 200-100-500 mcg Capsule 1 cap PO DAILY RF: 0 acetaminophen 325 mg Tablet 975 mg PO TID Qty: 90 RF: 0 polyethylene glycol 3350 17 gram Powder In Packet 17 gm PO DAILY PRN (Reason: Constipation) Qty: 30 RF: 0 bisacodyl 10 mg Suppository 10 mg NJ DAILY PRN (Reason: Constipation) Qty: 10 RF: 0 oxycodone 5 mg Tablet 5 mg PO Q3HR PRN (Reason: Pain, Moderate (4-6)) Qty: 15 RF: 0 ferrous gluconate 324 mg (38 mg iron) Tablet 324 mg PO DAILY Qty: 30 RF: 0 pregabalin 150 mg capsule 1 cap PO TID Qty: 10 RF: 0 sodium chloride 1 Gram tablet 1 g PO DAILY RF: 0 calcium carbonate-vitamin D3 [Oyster Shell Calcium-Vit D3] 500 mg(1,250mg) -200 unit Tablet 1 ea PO BIDWM Qty: 60 RF: 0 Referrals: [facility] [Provider Group] Arpita Fall ARNP [Primary Care Provider] - <Shauna Evans DO - Last Filed: 11/08/19 11:20> Cosign ED Attending En[place] Attestation: I was immediately available in the department for consultation. Documentation has been reviewed. I agree with assessment and plan.
--- NOTE | 2019-11-07 18:01 | PC.NURSE ---
Redressed wound with assistance of Francois SUSTAINABILITY SPECIALIST and Shi RN. Called [facility] and gave report, per [facility] their facility unable to transfer patient back via wheelchair and requested transfer via EMS. Patient updated with wait time and aware of changes. Provided with dinner tray.
== END 2019-11-07 18:49 | disposition home or self-care (01) ==
PROVIDERS: Emergency Provider Nurse Practitioner Family; PCP Nurse Practitioner Gerontology
DX: L76.22 Postprocedural hemorrhage of skin and subcutaneous tissue following other procedure (principal); E87.1 Hypo-osmolality and hyponatremia; Z96.642 Presence of left artificial hip joint; D64.9 Anemia, unspecified; I48.91 Unspecified atrial fibrillation; Z79.01 Long term (current) use of anticoagulants; Z79.82 Long term (current) use of aspirin; I95.9 Hypotension, unspecified; D72.829 Elevated white blood cell count, unspecified
CPT/HCPCS: 36415; 73502; 80053; 85025; 85610; 85730; 99284

== ENCOUNTER → 2019-11-14 14:12 | Outpatient (CLI) | payer MEDICARE, OTHER, SELFPAY ==
[2019-10-31 20:43] VITALS: BMI 26.5
--- NOTE | 2019-11-14 | DI.RAD.S_ITS ---
PROCEDURE: XR HIP W PEL IF DONE LT 2V INDICATIONS: PRESENCE OF ARTIFICIAL HIP JOINT TECHNIQUE: AP pelvis with lateral view(s) of the left hip(s). COMPARISON: [facility], , XR HIP W PEL IF DONE LT 2V, 11/07/2019, 14:06. FINDINGS: Bones: No fractures or dislocations. Pelvic ring appears intact. No suspicious bony lesions. Bilateral hip arthroplasties in expected postoperative alignment. Hardware appears intact. Soft tissues: The visualized bowel gas pattern is normal. No suspicious soft tissue calcifications. Scattered surgical clips. Lower lumbar spondylosis. IMPRESSION: Expected postoperative alignment. Dictated by: Tyrese Reynoso M.D. on 11/14/2019 at 16:10 Approved by: Tyrese Reynoso M.D. on 11/14/2019 at 16:13
== END ==
PROVIDERS: PCP Nurse Practitioner Gerontology; Referring Provider Orthopaedic Surgery; Visit Provider Orthopaedic Surgery
DX: Z47.1 Aftercare following joint replacement surgery (principal); Z96.642 Presence of left artificial hip joint
CPT/HCPCS: 73502

== ENCOUNTER → 2019-11-15 13:46 | Outpatient (ROUT) | payer SELFPAY ==
[2019-10-31 20:43] VITALS: BMI 26.5
[2019-11-16 16:37] LABS: COVID19 Sendout Not Detected (Not Detected)
== END ==
PROVIDERS: PCP Nurse Practitioner Gerontology; Visit Provider Internal Medicine
DX: Z11.59 Encounter for screening for other viral diseases (principal)
CPT/HCPCS: 87635

== ENCOUNTER → 2020-05-23 13:43 | Outpatient (CLI) | payer MEDICARE, OTHER, SELFPAY ==
[2019-10-31 20:43] VITALS: BMI 26.5
--- NOTE | 2020-05-23 | DI.RAD.S_ITS ---
PROCEDURE: XR CHEST 2V INDICATIONS: HISTORY OF BLADDER CANCER TECHNIQUE: 2 views of the chest were acquired. COMPARISON: [facility], CR, XR CHEST 2V, 07/04/2018, 5:40. [facility], CR, XR CHEST 1V, 07/03/2018, 17:49. FINDINGS: Surgical changes and devices: None. Lungs and pleura: Lungs are clear except for mild interstitial prominence previously present. No pleural effusions or pneumothorax. Mediastinum: Mediastinal contours are normal. Heart size is normal. Bones and chest wall: No suspicious bony abnormalities. Soft tissues appear unremarkable. IMPRESSION: No metastatic disease identified. Chronic mild interstitial prominence. Dictated by: Hitesh Terrell M.D. on 05/23/2020 at 15:08 Approved by: Hitesh Terrell M.D. on 05/23/2020 at 15:09
--- NOTE | 2020-05-23 | DI.US.S_ITS ---
PROCEDURE: US RENAL COMPLETE INDICATIONS: Personal history of malignant neoplasm of bladder TECHNIQUE: Real-time scanning was performed of the kidneys and bladder, with image documentation. COMPARISON: [facility], CT, CT ABDOMEN PELVIS W CON, 08/09/2018, 9:56. [facility], US, US RENAL COMPLETE, 04/12/2019, 12:26. FINDINGS: Kidneys: Kidneys are normal in size. Right kidney measures 10.3 cm long; left kidney measures 9.0 cm long. Right renal cortical thickness is 1.4 cm; left renal cortical thickness is 0.9 cm. Renal cortical echotexture is normal. No hydronephrosis or right-sided nephrolithiasis. A left-sided calculus appears present measuring approximately 7 mm as was previously the case No suspicious solid mass lesions. Bladder is surgically absent. Miscellaneous: No free pelvic fluid. IMPRESSION: Prior cystectomy for bladder carcinoma. No hydronephrosis or nephrolithiasis found. Asymmetrically smaller left kidney, previously the case on CT scanning. Note is made of a 7 mm calculus at the lower left kidney, also seen by prior CT scanning. No hydronephrosis as result, however. Dictated by: Hitesh Terrell M.D. on 05/23/2020 at 15:20 Approved by: Hitesh Terrell M.D. on 05/23/2020 at 15:23
[2020-05-23 16:16] LABS: Add Manual Diff / Slide Review NO; Basophils Absolute Auto 100 /uL (0-100); Basophils Percent Auto 1.1 % (0-2); Eosinophils Absolute Auto 400 /uL (0-450); Eosinophils Percent Auto 5.6 % (2-4); Hematocrit 34.1 % (41-53); Hemoglobin 11.1 g/dL (13.5-17.5); Lymphocytes Absolute Auto 1300 /uL (1100-4500); Lymphocytes Percent Auto 17.3 % (25-40); Mean Corpuscular HGB Conc 32.4 % (30-36); Mean Corpuscular Hemoglobin 26.8 PG (26-34); Mean Corpuscular Volume 82.6 fL (80-100); Monocytes Absolute Auto 800 /uL (0-900); Monocytes Percent Auto 10.8 % (3-14); Neutrophils Absolute Auto 4800 /uL (1500-7000); Neutrophils Percent Auto 65.2 % (50-75); Platelet Count 232 X10^3/uL (150-400); Red Blood Cell Count 4.13 X10^6/uL (4.5-5.9); Red Cell Distribution Width 13.5 % (11.6-14.8); White Blood Cell Count 7.4 X10^3/uL (4.5-11.0)
[2020-05-23 16:29] LABS: Alanine Aminotransferase 17 IU/L (<50); Albumin 3.7 g/dL (3.5-5.0); Albumin Globulin Ratio 1.2 (1.0-2.8); Alkaline Phosphatase 87 U/L (38-126); Aspartate Aminotransferase 36 IU/L (17-59); BUN Creatinine Ratio 21.3 (6-22); Bilirubin Total 0.2 mg/dL (0.2-1.3); Blood Urea Nitrogen 20 mg/dL (9-20); Calcium 8.5 mg/dL (8.4-10.2); Carbon Dioxide 31 mmol/L (22-32); Chloride 93 mmol/L (98-107); Estimated Glomerular Filt Rate > 60.0 mL/min (>60); Glucose 100 mg/dL (80-110); HEMOLYSIS < 15 (0-50); Potassium 4.7 mmol/L (3.4-5.1); Sodium 126 mmol/L (137-145); Total Protein 6.7 g/dL (6.3-8.2)
[2020-05-23 16:58] LABS: Prostate Specific Antigen < 0.064 ng/mL (0.10-4.00)
[2020-05-23 17:14] LABS: Vitamin B12 977 pg/mL (239-931)
== END ==
PROVIDERS: PCP Nurse Practitioner; Referring Provider Urology; Visit Provider Urology
DX: Z08 Encounter for follow-up examination after completed treatment for malignant neoplasm (principal); Z12.5 Encounter for screening for malignant neoplasm of prostate; Z85.51 Personal history of malignant neoplasm of bladder; N20.0 Calculus of kidney; Z90.6 Acquired absence of other parts of urinary tract
CPT/HCPCS: 36415; 71046; 76770; 80053; 82607; 84153; 85025; G0103

== ENCOUNTER 2021-01-27 14:12 | Emergency (ER) | payer MEDICARE, OTHER, SELFPAY ==
[2019-10-31 20:43] VITALS: BMI 26.5
[2021-01-27] VITALS (15 sets, daily range): BP systolic 126–164; BP diastolic 60–74; PULSE 55–61; RESP 18–32; TEMP 36; O2SAT 92–96; BMI 29.2
--- NOTE | 2021-01-27 14:22 | DI.CT.S_ITS ---
PROCEDURE: CT FACIAL BONES WO CON INDICATIONS: fall left eye contusion TECHNIQUE: Noncontrast 2.5 mm thick axial images acquired from the mandible through the frontal sinuses, with coronal and sagittal reformatting. For radiation dose reduction, the following was used: automated exposure control, adjustment of mA and/or kV according to patient size. COMPARISON: [facility], CT, CT HEAD/BRAIN WO CON, 01/27/2021, 14:32. FINDINGS: Image quality: Excellent. Bones and teeth: There is a mid minimally displaced lateral overall wall fracture. Nasal bones and septum are intact. Visualized portions of the mandible demonstrate no fractures or subluxation. Zygomatic arches are intact. Pterygoid plates are intact. Visualized portions of the skull base and auditory canals are intact. Sinuses: Nondisplaced left maxillary anterior wall fracture. There is diffuse mucosal thickening of the maxillary sinuses with near complete opacification of the left maxillary sinus. Opacification of multiple ethmoid air cells. Air-fluid levels noted within the right sphenoid sinus. There is periosteal thickening of the maxillary sinuses. Lens replacements. Small osteoma noted within the frontal sinus. Soft tissues: Small amount of hemorrhage is noted within the left intraconal orbit. Large soft tissue hematoma overlying the left face overlying the maxillary sinuses as well as the left orbit and left frontal bone. No enlarged lymph nodes. Trace amount of subcutaneous emphysema noted within the left anterior soft tissues most prominent adjacent to the left maxillary sinus. Vascular: Visualized vascular structures appear normal in the absence of contrast. Bony vascular foramina and canals are intact. IMPRESSION: Minimally displaced fracture of the posterolateral left orbital wall with small amount of intraconal hemorrhage. Nondisplaced fracture of the anterior left maxillary sinus wall. Large hematoma overlying the left face/orbit. Findings concerning for acute on chronic sinusitis. Dictated by: Indio Hyatt D.O. on 01/27/2021 at 13:57 Approved by: Indio Hyatt D.O. on 01/27/2021 at 14:07
--- NOTE | 2021-01-27 14:22 | DI.CT.S_ITS ---
PROCEDURE: CT CERVICAL SPINE WO CON INDICATIONS: fall on eliquis TECHNIQUE: Noncontrast 3 mm thick sections acquired from the skull base to the T4 level. Sagittal and coronal reformats were then constructed. For radiation dose reduction, the following was used: automated exposure control, adjustment of mA and/or kV according to patient size. COMPARISON: None. FINDINGS: Image quality: Excellent. Bones: No fractures or dislocation. Please see same day CT head and face for findings. There is marked cervical spondylosis of the cervical spine. There is partial ankylosis noted from CT to through C5. No significant listhesis. There is diffuse endplate degenerative changes, uncovertebral and facet arthropathy. No significant bony spinal canal stenosis. There is varying degrees of mild to severe neural foraminal stenosis worse bilaterally at C3-C4. Hypertrophic degenerative changes of the atlanto axial articulation. Soft tissues: Prevertebral soft tissues are normal in thickness. No paravertebral hematomas. No apical pneumothoraces. IMPRESSION: No acute fracture or traumatic subluxation. Advanced cervical spondylopathy. Dictated by: Indio Hyatt D.O. on 01/27/2021 at 14:07 Approved by: Indio Hyatt D.O. on 01/27/2021 at 14:13
--- NOTE | 2021-01-27 14:22 | DI.CT.S_ITS ---
PROCEDURE: CT HEAD/BRAIN WO CON INDICATIONS: fall on eliquis TECHNIQUE: Noncontrast 4.5 mm thick angled axial sections acquired from the foramen magnum to the vertex, with coronal and sagittal reformats. For radiation dose reduction, the following was used: automated exposure control, adjustment of mA and/or kV according to patient size. COMPARISON: [facility], CT, CT HEAD/BRAIN WO CON, 06/11/2018, 22:06. FINDINGS: Image quality: Excellent. CSF spaces: Basal cisterns are patent. There is a region of acute subdural hemorrhage noted extending from the right cranial fossa extending superiorly adjacent to the insula and left temporal lobe as well as the inferior aspects of the left frontal/parietal lobe. There is adjacent mass effect on the temporal lobe. No midline shift. This measures approximately 1.1 centimeters in greatest thickness. Brain: No midline shift. No intracranial masses or hemorrhage. Foreman-white matter interface is normal. Skull and face: Calvarium and visualized facial bones are intact, without suspicious lesions. Sinuses: There is opacification of the left maxillary sinus with diffuse mucosal thickening of the maxillary sinuses. Air-fluid level is noted within the right seen of sinus. Opacification of multiple ethmoid air cells. Hematoma is noted overlying the left face, orbit, and frontal bone. Please see same-day CT face for facial bone discussion. IMPRESSION: Findings most consistent with acute subdural hematoma with a majority overlying the left temporal lobe with adjacent mass effect. No midline shift. This measures up to 1.1 centimeters in thickness. Additional focus of hyperdensity within the superior aspect of the left lateral ventricle concerning for intraventricular hemorrhage. Findings discussed with the ordering provider Dr. Shauna Evans by Dr. Indio Hyatt over the telephone at approximately 1350 hours AST on 01/27/2021. Dictated by: Indio Hyatt D.O. on 01/27/2021 at 13:47 Approved by: Indio Hyatt D.O. on 01/27/2021 at 13:57
--- NOTE | 2021-01-27 14:37 | ED.FALL ---
HPI - Fall General Chief Complaint: Trauma Stated Complaint: fell in driveway hit head Time Seen by Provider: 01/27/21 14:22 Source: patient and family Mode of arrival: Wheelchair History of Present Illness HPI Narrative: Patient is an 85-year-old male who is a ground level fall on EliExplara for atrial fibrillation presenting with injury to his head. He he slipped and fell it is quite wet outside he had no loss of consciousness. No other injury. He denies any chest pain palpitations. He is noted to have old left periorbital contusion unable to open his eye by himself. He denies any eye pain or loss of vision. Has no numbness tingling or weakness. No hip pain. No chest pain or palpitations. He denies any nausea or vomiting. Related Data Home Medications Medication Instructions Recorded Confirmed aspirin 81 mg tablet,delayed 1 tab PO DAILY 11/07/17 10/31/19 release atorvastatin 40 mg tablet 1 tab PO BEDTIME 11/07/17 10/31/19 docusate calcium 240 mg capsule 1 cap PO BEDTIME 11/07/17 10/31/19 losartan 50 mg tablet 100 mg PO QPM 11/07/17 10/31/19 amlodipine 10 mg tablet 1 tab PO DAILY 06/11/18 10/31/19 diphenhydramine 25 1 tab PO BEDTIME PRN 06/11/18 10/31/19 mg-acetaminophen 500 mg tablet (Acetaminophen PM) docusate sodium 100 mg tablet 100 mg PO BID 06/11/18 10/31/19 meclizine 25 mg tablet 25 mg PO Q8H PRN 06/11/18 10/31/19 metoprolol succinate 25 mg 1 tab PO DAILY 06/11/18 10/31/19 tablet,extended release 24 hr sennosides 8.6 mg tablet (senna) 8.6 mg PO BID 06/11/18 10/31/19 levothyroxine 200 mcg tablet 200 mcg PO 0700 08/09/18 10/31/19 apixaban 5 mg tablet (Eliquis) 5 mg PO DAILY 10/31/19 10/31/19 fluticasone propionate 50 1 spray INTRANASAL BID 10/31/19 10/31/19 mcg/actuation nasal spray,suspension (Flonase Allergy Relief) [id number] 200 mcg-vit K 100 1 cap PO DAILY 10/31/19 10/31/19 mcg-lycop 500 [id number] capsule (Daily Multivitamin) sodium chloride 1 g PO DAILY 11/05/19 11/05/19 Previous Rx's Medication Instructions Recorded acetaminophen 325 mg tablet 975 mg PO TID #90 tab 11/05/19 bisacodyl 10 mg rectal suppository 10 mg NH DAILY PRN #10 ea 11/05/19 calcium carbonate 500 mg (1,250 1 ea PO BIDWM #60 tab 11/05/19 mg)-vitamin D3 200 unit tablet (Oyster Shell Calcium-Vit D3) ferrous gluconate 324 mg (38 mg 324 mg PO DAILY #30 tab 11/05/19 iron) tablet oxycodone 5 mg tablet 5 mg PO Q3HR PRN #15 tab 11/05/19 polyethylene glycol 3350 17 gram 17 gm PO DAILY PRN #30 ea 11/05/19 oral powder packet pregabalin 150 mg capsule 1 cap PO TID #10 cap 11/05/19 Allergies Allergy/AdvReac Type Severity Reaction Status Date / Time No Known Drug Allergies Allergy Verified 03/26/20 14:22 Review of Systems Review of Systems Narrative: GENERAL: Denies chills, fatigue, malaise, fever, sweats, travel HEENT: Denies sinus pain, ear pain, sore throat, difficulty swallowing, neck pain RESPIRATORY: Denies dyspnea, cough, wheezing, hemoptysis, sputum. CARDIOVASCULAR: Denies chest pain, palpitations, orthopnea, edema GASTROINTESTINAL: Denies nausea, vomiting, abdominal pain, diarrhea, constipation, melena. : Denies dysuria, frequency, incontinence, hematuria, urinary retention, flank pain. MUSCULOSKELETAL: Denies weakness, joint pain, or bony pain SKIN: Contusion, laceration to left side of face NEUROLOGIC: Denies weakness, dizziness, headache, numbness, change in speech, confusio, LOC PSYCHIATRIC: No concerning psychosocial issues. 12 point review of systems is negative except for those stated above and HPI Patient History Medical History (Updated 01/27/21 @ 15:37 by Shauna Evans DO) Bladder cancer Coronary artery disease Hypertension Hyponatremia Hypothyroid Kidney stones Prostate cancer Thyroid cancer Surgical History (Updated 03/26/20 @ 14:22 by Claudette Bowens) H/O colectomy H/O thyroidectomy History of appendectomy History of urostomy S/P hip replacement Family History (System 03/26/20 @ 14:22 by Claudette Bowens) Father Alcoholism Mother Alcoholism Social History (System 03/26/20 @ 14:22 by Claudette Bowens) household members: spouse Smoking Status: Former smoker alcohol intake: former substance use type: does not use Smoking Status: Former smoker alcohol intake frequency: other Substance Use Type: does not use Exam Initial Vital Signs Initial Vital Signs: Vital Signs Temperature 96.8 F L 01/27/21 14:16 Pulse Rate 61 01/27/21 14:16 Respiratory Rate 18 01/27/21 14:16 Blood Pressure 160/74 H 01/27/21 14:16 Pulse Oximetry 96 01/27/21 14:16 GENERAL: Alert 85-year-old and in no acute distress. HEENT: Head atraumatic,EOMI, pupils reactive, face symmetric, moist mucous membranes EYE: Left periorbital contusion. It is opened mannually extraocular muscles are intact he has significant subconjunctival hematoma. Pupils react is no visual loss. NECK: No vertebral tenderness no step-offs full range of motion CARDIOVASCULAR: Regular rate and rhythm without murmurs, rubs or gallops. RESPIRATORY: Breath sounds equal bilaterally, no wheezes rales or rhonchi. ABDOMEN: Soft, nontender. Normoactive bowel sounds all 4 quadrants. No guarding or rebound. EXTREMITIES: Normal range of motion, no clubbing or edema. Neurovascularly intact. Pelvis stable NEUROLOGICAL: Alert and oriented x4.Normal gait and speech. Cranial nerves II through XII grossly intact. 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 He has significant left periorbital contusion. Procedures Laceration Repair Laceration 1: Site: face Side (If applicable): left Size (cm): 2 Description: linear Local Anesthetic: lidocaine 1% and with bicarb Amount of anesthesia used (mL): 3 Pre-repair: wound explored, irrigated extensively and deep structures intact Skin layer closed with: nylon Size (cm): 4-0 Number of sutures: 2 Technique: simple, interrupted Course Orders Ordered: ED Orders 01/27/21 14:22 CT cervical spine wo con Stat CT facial bones wo con Stat CT head/brain wo con Stat 01/27/21 14:30 Complete Blood Count AUTO DIFF Stat Comprehensive Metabolic Panel Stat Partial Thromboplastin Time Stat Prothrombin Time INR Stat 01/27/21 15:40 COVID19 - ADMIT (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/PCR) Stat COVID19 -Nasal swab/Pre-Proc Stat Discontinued Medications Nicardipine HCl 25 mg/ Sodium (Chloride) 250 mls @ 50 mls/hr IV TITRATE FRED; Protocol Last Titration: 01/27/21 17:00 Dose: 0 mg/hr, 0 mls/hr Documented by: Admin: 01/27/21 16:18 Dose: 5 mg/hr, 50 mls/hr Documented by: CTRVALENTINA Labetalol HCl (Labetalol 20 Mg/4 Ml Syringe) 10 mg IV NOW ONE Stop: 01/27/21 15:21 Last Admin: 01/27/21 15:25 Dose: 10 mg Documented by: EMBER Morphine Sulfate (Morphine 2 Mg/Ml Inj) 2 mg IV NOW ONE Stop: 01/27/21 15:04 Last Admin: 01/27/21 15:12 Dose: 2 mg Documented by: SHAYLEE Vital Signs Vital signs: Vital Signs - 8 hr 01/27/21 14:16 01/27/21 14:21 01/27/21 14:22 Temperature 96.8 F L Pulse Rate 61 61 61 Respiratory Rate 18 18 Blood Pressure 160/74 H 160/74 H Pulse Oximetry 96 95 93 01/27/21 14:42 01/27/21 15:00 01/27/21 15:22 Temperature Pulse Rate 61 58 L 56 L Respiratory Rate 18 19 Blood Pressure 154/67 H 154/67 H Pulse Oximetry 95 95 92 01/27/21 15:25 01/27/21 15:30 01/27/21 15:35 Temperature Pulse Rate 56 L 58 L 57 L Respiratory Rate 24 Blood Pressure 154/67 H 132/63 132/63 Pulse Oximetry 92 01/27/21 16:00 01/27/21 16:01 01/27/21 16:06 Temperature Pulse Rate 57 L 57 L 55 L Respiratory Rate 24 32 H 20 Blood Pressure 164/68 H 149/69 H Pulse Oximetry 94 93 93 01/27/21 16:15 01/27/21 16:24 01/27/21 16:30 Temperature Pulse Rate 56 L 56 L 59 L Respiratory Rate 18 18 22 Blood Pressure 148/66 H 126/60 Pulse Oximetry 93 93 93 MDM - Fall Lab Data Result diagrams: 01/27/21 14:30 01/27/21 14:30 Labs: Lab Results 01/27/21 01/27/21 01/27/21 Range/Units 14:30 14:30 14:30 WBC 11.7 H (4.5-11.0) X10^3/uL RBC 4.39 L (4.5-5.9) X10^6/uL Hgb 11.4 L (13.5-17.5) g/dL Hct 35.2 L (41-53) % MCV 80.2 (80-100) fL MCH 25.9 L (26-34) PG MCHC 32.2 (30-36) % RDW 19.2 H (11.6-14.8) % Plt Count 232 (150-400) X10^3/uL Neut % (Auto) 81.4 H (50-75) % Lymph % (Auto) 7.0 L (25-40) % [place] % (Auto) 8.4 (3-14) % Eos % (Auto) 2.6 (2-4) % Baso % (Auto) 0.6 (0-2) % Neut # (Auto) 9600 H (6639-7159) /uL Lymph # (Auto) 800 L (5385-6010) /uL [place] # (Auto) 1000 H (0-900) /uL Eos # (Auto) 300 (0-450) /uL Baso # (Auto) 100 (0-100) /uL PT 12.8 H (10.1-12.7) SECONDS INR 1.2 (0.9-1.3) APTT 31 D (26.4-36.2) SECONDS Sodium 121 L (137-145) mmol/L Potassium 4.3 (3.4-5.1) mmol/L Chloride 84 L (98-107) mmol/L Carbon Dioxide 29 (22-32) mmol/L BUN 12 (9-20) mg/dL Creatinine 0.82 (0.66-1.25) mg/dL Estimated GFR > 60.0 (>60) mL/min BUN/Creatinine Ratio 14.6 (6-22) Glucose 156 H (80-110) mg/dL Calcium 8.8 (8.4-10.2) mg/dL Total Bilirubin 0.3 (0.2-1.3) mg/dL AST 48 (17-59) IU/L ALT 15 (<50) IU/L Alkaline Phosphatase 72 (38-126) U/L Total Protein 6.8 (6.3-8.2) g/dL Albumin 4.0 (3.5-5.0) g/dL Globulin 2.8 (1.7-4.1) g/dL Albumin/Globulin Ratio 1.4 (1.0-2.8) SARS-CoV-2 (PCR) (Negative) 01/27/21 01/27/21 Range/Units 15:40 15:40 WBC (4.5-11.0) X10^3/uL RBC (4.5-5.9) X10^6/uL Hgb (13.5-17.5) g/dL Hct (41-53) % MCV (80-100) fL MCH (26-34) PG MCHC (30-36) % RDW (11.6-14.8) % Plt Count (150-400) X10^3/uL Neut % (Auto) (50-75) % Lymph % (Auto) (25-40) % [place] % (Auto) (3-14) % Eos % (Auto) (2-4) % Baso % (Auto) (0-2) % Neut # (Auto) (4436-7536) /uL Lymph # (Auto) (5428-8752) /uL [place] # (Auto) (0-900) /uL Eos # (Auto) (0-450) /uL Baso # (Auto) (0-100) /uL PT (10.1-12.7) SECONDS INR (0.9-1.3) APTT (26.4-36.2) SECONDS Sodium (137-145) mmol/L Potassium (3.4-5.1) mmol/L Chloride (98-107) mmol/L Carbon Dioxide (22-32) mmol/L BUN (9-20) mg/dL Creatinine (0.66-1.25) mg/dL Estimated GFR (>60) mL/min BUN/Creatinine Ratio (6-22) Glucose (80-110) mg/dL Calcium (8.4-10.2) mg/dL Total Bilirubin (0.2-1.3) mg/dL AST (17-59) IU/L ALT (<50) IU/L Alkaline Phosphatase (38-126) U/L Total Protein (6.3-8.2) g/dL Albumin (3.5-5.0) g/dL Globulin (1.7-4.1) g/dL Albumin/Globulin Ratio (1.0-2.8) SARS-CoV-2 (PCR) Negative Negative (Negative) Imaging Data CT scan - head: Radiologist's Impression: PROCEDURE:? CT HEAD/BRAIN WO CON ? INDICATIONS:? fall on eliquis ? TECHNIQUE:? Noncontrast 4.5 mm thick angled axial sections acquired from the foramen magnum to the vertex, with coronal and sagittal reformats.? For radiation dose reduction, the following was used:? automated exposure control, adjustment of mA and/or kV according to patient size.? ? COMPARISON:? [facility], CT, CT HEAD/BRAIN WO CON, 06/11/2018, 22:06. ? FINDINGS:? Image quality:? Excellent.? ? CSF spaces:? Basal cisterns are patent.? There is a region of acute subdural hemorrhage noted extending from the right cranial fossa extending superiorly adjacent to the insula and left temporal lobe as well as the inferior aspects of the left frontal/parietal lobe. ?There is adjacent mass effect on the temporal lobe.? No midline shift.? This measures approximately 1.1 centimeters in greatest thickness. Brain:? No midline shift.? No intracranial masses or hemorrhage.? Foreman-white matter interface is normal.? ? Skull and face:? Calvarium and visualized facial bones are intact, without suspicious lesions.? ? Sinuses:? There is opacification of the left maxillary sinus with diffuse mucosal thickening of the maxillary sinuses.? Air-fluid level is noted within the right seen of sinus.? Opacification of multiple ethmoid air cells.? Hematoma is noted overlying the left face, orbit, and frontal bone.? Please see same-day CT face for facial bone discussion. ? IMPRESSION:? ? Findings most consistent with acute subdural hematoma with a majority overlying the left temporal lobe with adjacent mass effect.? No midline shift.? This measures up to 1.1 centimeters in thickness.? Additional focus of hyperdensity within the superior aspect of the left lateral ventricle concerning for intraventricular hemorrhage. ? Findings discussed with the ordering provider Dr. Shauna Evans by Dr. Indio Hyatt over the telephone at approximately 1350 hours AST on 01/27/2021.? ? ? Dictated by: Indio Hyatt D.O. on 01/27/2021 at 13:47 ? ? Approved by: Indio Hyatt D.O. on 01/27/2021 at 13:57 ? CT - cervical spine: Radiologist's Impression: PROCEDURE:? CT CERVICAL SPINE WO CON ? INDICATIONS:? fall on eliquis ? TECHNIQUE:? Noncontrast 3 mm thick sections acquired from the skull base to the T4 level.? Sagittal and coronal reformats were then constructed.? For radiation dose reduction, the following was used:? automated exposure control, adjustment of mA and/or kV according to patient size.? ? COMPARISON:? None. ? FINDINGS:? Image quality:? Excellent.? ? Bones:? No fractures or dislocation.? Please see same day CT head and face for findings.? There is marked cervical spondylosis of the cervical spine.? There is partial ankylosis noted from CT to through C5.? No significant listhesis.? There is diffuse endplate degenerative changes, uncovertebral and facet arthropathy.? No significant bony spinal canal stenosis.? There is varying degrees of mild to severe neural foraminal stenosis worse bilaterally at C3-C4.? Hypertrophic degenerative changes of the atlanto axial articulation. ? Soft tissues:? Prevertebral soft tissues are normal in thickness.? No paravertebral hematomas.? No apical pneumothoraces.? ? ? IMPRESSION:? ? No acute fracture or traumatic subluxation. ? Advanced cervical spondylopathy. ? ? Dictated by: Indio Hyatt D.O. on 01/27/2021 at 14:07 ? ? CT facial: Radiologist's Impression: PROCEDURE:? CT FACIAL BONES WO CON ? INDICATIONS:? fall left eye contusion ? TECHNIQUE:? Noncontrast 2.5 mm thick axial images acquired from the mandible through the frontal sinuses, with coronal and sagittal reformatting.? For radiation dose reduction, the following was used:? automated exposure control, adjustment of mA and/or kV according to patient size.? ? COMPARISON:? [facility], CT, CT HEAD/BRAIN WO CON, 01/27/2021, 14:32. ? FINDINGS:? Image quality:? Excellent.? ? Bones and teeth:? There is a mid minimally displaced lateral overall wall fracture.? Nasal bones and septum are intact.? Visualized portions of the mandible demonstrate no fractures or subluxation.? Zygomatic arches are intact.? Pterygoid plates are intact.? Visualized portions of the skull base and auditory canals are intact.? ? Sinuses:? Nondisplaced left maxillary anterior wall fracture.? There is diffuse mucosal thickening of the maxillary sinuses with near complete opacification of the left maxillary sinus.? Opacification of multiple ethmoid air cells.? Air-fluid levels noted within the right sphenoid sinus.? There is periosteal thickening of the maxillary sinuses.? Lens replacements.? Small osteoma noted within the frontal sinus. ? Soft tissues:? Small amount of hemorrhage is noted within the left intraconal orbit.? Large soft tissue hematoma overlying the left face overlying the maxillary sinuses as well as the left orbit and left frontal bone.? No enlarged lymph nodes.? Trace amount of subcutaneous emphysema noted within the left anterior soft tissues most prominent adjacent to the left maxillary sinus. ? Vascular:? Visualized vascular structures appear normal in the absence of contrast.? Bony vascular foramina and canals are intact.? ? IMPRESSION:? ? Minimally displaced fracture of the posterolateral left orbital wall with small amount of intraconal hemorrhage. ? ? Nondisplaced fracture of the anterior left maxillary sinus wall. ? Large hematoma overlying the left face/orbit.? ? Findings concerning for acute on chronic sinusitis.? ? Dictated by: Indio Hyatt D.O. on 01/27/2021 at 13:57? [facility] Narrative Medical decision making narrative: The patient is 85-year-old male anticoagulated on Eliquis sounds as though he has had a mechanical fall his and slipped in the rain. He is found to have subdural hematoma that measures 1.1 cm thick without midline shift or neurologic deficits. Blood pressure slightly elevated in the 160s he is given 10 mg of labetalol. He is also complaining of pain he is given morphine as well. Blood pressure improved significantly with medications. Patient is a very sharp individual he does well independently son-in-law states that he probably does need some help with ADLs at baseline but overall is independent. She signed up for [facility] at bedside. Patient's blood pressure continues to very she is mentally is put on a nicardipine drip to stabilize blood pressure for transport. Patient's blood work returns she is actually found to be hyponatremic with a sodium of 121 this an may be cause of fall. 1522 Dr. Villegas, ED doc at [facility] has been updated on Patient's symptoms test results and except patient The patient is signed up for airlift at bedside. Sinus rhythm on monitor Critical Care Time Critical Care Time Critical Care Time: Yes Total Critical Care Time: 30 Attestation: The high probability of a clinically significant, sudden or life threatening deterioration of the neurovascular system(s) required my full and direct attention, intervention and personal management. The aggregate critical care time was 30 minutes. This time is in addition to time spent performing reported procedures but includes the following: [x] Data Review and interpretation [x] Patient assessment and monitoring of vital signs [x] Documentation [x] Medication orders and management Discharge Plan Departure Patient Disposition: [facility] Clinical Impression: Acute subdural hematoma Prescriptions: No Action losartan 50 mg tablet 100 mg PO QPM RF: 0 atorvastatin 40 mg tablet 1 tab PO BEDTIME RF: 0 docusate calcium 240 mg capsule 1 cap PO BEDTIME RF: 0 aspirin 81 mg tablet,delayed release (DR/EC) 1 tab PO DAILY RF: 0 levothyroxine 200 mcg Tablet 200 mcg PO 0700 RF: 0 sennosides [senna] 8.6 mg Tablet 8.6 mg PO BID RF: 0 amlodipine 10 mg tablet 1 tab PO DAILY RF: 0 metoprolol succinate 25 mg tablet extended release 24 hr 1 tab PO DAILY RF: 0 diphenhydramine-acetaminophen [Acetaminophen PM] 25-500 mg Tablet 1 tab PO BEDTIME PRN (Reason: Insomnia) RF: 0 docusate sodium 100 mg Tablet 100 mg PO BID RF: 0 meclizine 25 mg tablet 25 mg PO Q8H PRN (Reason: Dizziness Or Vertigo) RF: 0 Eliquis 5 mg tablet 5 mg PO DAILY RF: 0 fluticasone propionate [Flonase Allergy Relief] 50 mcg/actuation [place],Suspension 1 spray INTRANASAL BID RF: 0 Daily Multivitamin 200-100-500 mcg Capsule 1 cap PO DAILY RF: 0 acetaminophen 325 mg Tablet 975 mg PO TID Qty: 90 RF: 0 polyethylene glycol 3350 17 gram Powder In Packet 17 gm PO DAILY PRN (Reason: Constipation) Qty: 30 RF: 0 bisacodyl 10 mg Suppository 10 mg NH DAILY PRN (Reason: Constipation) Qty: 10 RF: 0 oxycodone 5 mg Tablet 5 mg PO Q3HR PRN (Reason: Pain, Moderate (4-6)) Qty: 15 RF: 0 ferrous gluconate 324 mg (38 mg iron) Tablet 324 mg PO DAILY Qty: 30 RF: 0 pregabalin 150 mg capsule 1 cap PO TID Qty: 10 RF: 0 sodium chloride 1 Gram tablet 1 g PO DAILY RF: 0 calcium carbonate-vitamin D3 [Oyster Shell Calcium-Vit D3] 500 mg(1,250mg) -200 unit Tablet 1 ea PO BIDWM Qty: 60 RF: 0 Referrals: Gwen Lindsey ARNP [Primary Care Provider] -
[2021-01-27 15:12] LABS: Add Manual Diff / Slide Review NO; Basophils Absolute Auto 100 /uL (0-100); Basophils Percent Auto 0.6 % (0-2); Eosinophils Absolute Auto 300 /uL (0-450); Eosinophils Percent Auto 2.6 % (2-4); Hematocrit 35.2 % (41-53); Hemoglobin 11.4 g/dL (13.5-17.5); Lymphocytes Absolute Auto 800 /uL (1100-4500); Mean Corpuscular HGB Conc 32.2 % (30-36); Mean Corpuscular Hemoglobin 25.9 PG (26-34); Mean Corpuscular Volume 80.2 fL (80-100); Monocytes Absolute Auto 1000 /uL (0-900); Monocytes Percent Auto 8.4 % (3-14); Neutrophils Absolute Auto 9600 /uL (1500-7000); Neutrophils Percent Auto 81.4 % (50-75); Platelet Count 232 X10^3/uL (150-400); Red Blood Cell Count 4.39 X10^6/uL (4.5-5.9); Red Cell Distribution Width 19.2 % (11.6-14.8); White Blood Cell Count 11.7 X10^3/uL (4.5-11.0)
[2021-01-27] MEDS: MORPHINE 2 MG/ML INJ IV (15:12)
[2021-01-27 15:13] LABS: INR 1.2 (0.9-1.3); Prothrombin Time 12.8 SECONDS (10.1-12.7)
[2021-01-27 15:16] LABS: PTT Partial Thromboplastin Tim 31 SECONDS (26.4-36.2)
[2021-01-27 15:17] LABS: Alanine Aminotransferase 15 IU/L (<50); Albumin Globulin Ratio 1.4 (1.0-2.8); Alkaline Phosphatase 72 U/L (38-126); Aspartate Aminotransferase 48 IU/L (17-59); BUN Creatinine Ratio 14.6 (6-22); Bilirubin Total 0.3 mg/dL (0.2-1.3); Blood Urea Nitrogen 12 mg/dL (9-20); Calcium 8.8 mg/dL (8.4-10.2); Carbon Dioxide 29 mmol/L (22-32); Chloride 84 mmol/L (98-107); Estimated Glomerular Filt Rate > 60.0 mL/min (>60); Globulin 2.8 g/dL (1.7-4.1); Glucose 156 mg/dL (80-110); HEMOLYSIS < 15 (0-50); Potassium 4.3 mmol/L (3.4-5.1); Sodium 121 mmol/L (137-145); Total Protein 6.8 g/dL (6.3-8.2)
[2021-01-27] MEDS: LABETALOL 20 MG/4 ML SYRINGE 10 MG IV (15:25)
[2021-01-27] MEDS: LIDO 1%/SOD BICARB 8.4% (10ML) 10 ML SYRINGE INJ (15:33)
--- NOTE | 2021-01-27 16:02 | PC.NURSE ---
татьяна belcher () home phone (call first) [phone] cell [phone] second emergency contact janeth pepper (son in law home [phone] cell [phone]
[2021-01-27 16:05] LABS: COVID19 -Nasal RAPID Negative (Negative)
[2021-01-27] MEDS: NICARDIPINE 25 MG in SODIUM CHLORIDE 0.9% 240 ML 50 ML IV (16:18)
[2021-01-27 16:48] LABS: COVID19 - ADMIT (NP swab/PCR) Negative (Negative)
--- NOTE | 2021-01-27 17:29 | PC.NURSE ---
Nicardipine drip running at 5mg/hr. Flight RN continued drip for transfer
== END 2021-01-27 17:15 | disposition short-term general hospital (02) ==
PROVIDERS: Emergency Provider Emergency Medicine; PCP Nurse Practitioner
DX: S06.5X0A Traumatic subdural hemorrhage without loss of consciousness, initial encounter (principal); W01.10XA Fall on same level from slipping, tripping and stumbling with subsequent striking against unspecified object, initial encounter; Z79.01 Long term (current) use of anticoagulants; Z20.822 Contact with and (suspected) exposure to COVID-19
CPT/HCPCS: 12051; 36415; 70450; 70486; 72125; 80053; 85025; 85610; 85730; 87635; 96365; 96375; 99284; 99291; C9803; J2270

== ENCOUNTER 2021-06-04 12:37 | Emergency (ER) | payer MEDICARE, OTHER, SELFPAY ==
[2019-10-31 20:43] VITALS: BMI 26.5
[2021-06-04] VITALS (14 sets, daily range): BP systolic 133–162; BP diastolic 60–66; PULSE 52–61; RESP 9–29; TEMP 37; O2SAT 90–99; BMI 26.8
--- NOTE | 2021-06-04 13:29 | DI.CT.S_ITS ---
PROCEDURE: CT CERVICAL SPINE WO CON INDICATIONS: Fall on eliquis TECHNIQUE: Noncontrast 3 mm thick sections acquired from the skull base to the T4 level. Sagittal and coronal reformats were then constructed. For radiation dose reduction, the following was used: automated exposure control, adjustment of mA and/or kV according to patient size. COMPARISON: None. FINDINGS: Image quality: Excellent. Bones: Extensive moderate to severe degenerative changes. No fracture, listhesis, subluxation, or dislocation. Soft tissues: Prevertebral soft tissues are normal in thickness. No paravertebral hematomas. No apical pneumothoraces. IMPRESSION: No CT evidence of acute traumatic cervical spine injury. Dictated by: Eladio Preciado M.D. on 06/04/2021 at 13:58 Approved by: Eladio Preciado M.D. on 06/04/2021 at 13:59
--- NOTE | 2021-06-04 13:29 | DI.CT.S_ITS ---
PROCEDURE: CT HEAD/BRAIN WO CON INDICATIONS: Fall on eliquis TECHNIQUE: Noncontrast 4.5 mm thick angled axial sections acquired from the foramen magnum to the vertex, with coronal and sagittal reformats. For radiation dose reduction, the following was used: automated exposure control, adjustment of mA and/or kV according to patient size. COMPARISON: None. FINDINGS: Image quality: Excellent. CSF spaces: Basal cisterns are patent. No extra-axial fluid collections. The ventricles are symmetric in size and shape. Brain: No intracranial bleeds or masses. There is cerebral volume loss for age, with resultant ventricular and sulcal prominence. There are periventricular and deep white matter chronic small vessel ischemic changes. There is intracranial internal carotid artery atherosclerosis. Skull and face: Calvarium and visualized facial bones appear intact, without suspicious lesions. Sinuses: Visualized sinuses and mastoids are clear. IMPRESSION: No acute intracranial abnormality. Dictated by: Eladio Preciado M.D. on 06/04/2021 at 13:51 Approved by: Eladio Preciado M.D. on 06/04/2021 at 13:58
--- NOTE | 2021-06-04 13:30 | DI.RAD.S_ITS ---
PROCEDURE: XR SHOULDER RT MIN 2V INDICATIONS: Fall TECHNIQUE: 3 views of the shoulder were acquired. COMPARISON: None. FINDINGS: Bones: Comminuted displaced fracture of the proximal humeral head and neck is seen. The humeral shaft fracture is laterally displaced and impacted as well as slightly angulated relative to the main humeral head component. Moderate acromioclavicular joint osteoarthrosis. Soft tissues: No suspicious soft tissue calcifications. Moderate aortic atherosclerotic calcifications. Surgical clips are seen in the lower neck. IMPRESSION: Comminuted moderately displaced fracture of the proximal humeral head and neck. Dictated by: Tavo Stringer M.D. on 06/04/2021 at 14:13 Approved by: Tavo Stringer M.D. on 06/04/2021 at 14:14
--- NOTE | 2021-06-04 13:31 | DI.RAD.S_ITS ---
PROCEDURE: XR HUMERUS RT 2V INDICATIONS: Fallright shoulder TECHNIQUE: 2 views of the humerus were acquired. COMPARISON: None. FINDINGS: Bones: Comminuted displaced and impacted fracture of the proximal humeral head and neck is seen. The humeral shaft component is impacted and laterally displaced and there is mild varus angulation relative to the main humeral head component. Soft tissues: No suspicious soft tissue calcifications. IMPRESSION: Comminuted displaced and impacted fracture of the proximal humeral head and neck. Dictated by: Tavo Stringer M.D. on 06/04/2021 at 14:15 Approved by: Tavo Stringer M.D. on 06/04/2021 at 14:18
--- NOTE | 2021-06-04 13:32 | DI.RAD.S_ITS ---
PROCEDURE: XR CLAVICLE RT INDICATIONS: Fall right extremity pain TECHNIQUE: 2 views of the clavicle were acquired. COMPARISON: None. FINDINGS: Bones: Fracture of the proximal humerus is partially imaged. No suspicious bony lesions. Moderate acromioclavicular joint osteoarthrosis. Soft tissues: No suspicious soft tissue calcifications. Surgical clips are seen in the right lower neck. IMPRESSION: Intact clavicle. Proximal humeral fracture is partially imaged. Dictated by: Tavo Stringer M.D. on 06/04/2021 at 14:07 Approved by: Tavo Stringer M.D. on 06/04/2021 at 14:13
--- NOTE | 2021-06-04 13:38 | DI.RAD.S_ITS ---
PROCEDURE: XR CHEST 1V INDICATIONS: Fall TECHNIQUE: One view of the chest was acquired. COMPARISON: None. FINDINGS: Surgical changes and devices: None. Lungs and pleura: Lungs are clear. No pleural effusions or pneumothorax. Mediastinum: Mediastinal contours appear normal. Heart size is normal. Bones and chest wall: No suspicious bony lesions. Overlying soft tissues appear unremarkable. IMPRESSION: No acute cardiopulmonary process demonstrated radiographically. Please note that this thoracic spine and other osseous structures of the chest are not ideally evaluated. Cross-sectional imaging recommended if there is concern for fracture. Dictated by: Eladio Preciado M.D. on 06/04/2021 at 14:12 Approved by: Eladio Preciado M.D. on 06/04/2021 at 14:13
--- NOTE | 2021-06-04 14:12 | ED_ITS ---
HPI - Extremity Injury (Upper) <Naomie Yin PA-C - Last Filed: 06/04/21 20:16> General Chief Complaint: Extremity Injury, Upper Stated Complaint: GLF- shoulder injury Time Seen by Provider: 06/04/21 12:52 Source: patient Mode of arrival: EMS History of Present Illness HPI narrative: 85-year-old male with past medical history hyponatremia, anemia, AFib presents to the ED status post a ground level fall sustained just prior to arrival. Patient's fall was witnessed by his . Patient endorses that the fall was mechanical, that he fell backwards on his right shoulder. Patient endorses head strike. Patient is on Eliquis for AFib. Patient denies neck pain, back pain. Patient denies loss of consciousness. Patient endorses severe pain of the right shoulder, endorses that it is extremely painful to move his right arm. Denies fever, chills, chest pain, shortness of breath, lightheadedness, syncope, naus ea, vomiting, abdominal pain, dysuria, flank pain, numbness, tingling, weakness. Patient endorses frequent falls, unknown what the cause of the other falls were. Patient's last fall prior to today was yesterday with a positive head strike and a small abrasion to the right forehead. Patient states he fell of the bed which the states is quite high. Patient did not present to the ED yesterday due to no disabling injuries. Patient suffered a subdural hematoma last year in January 2021 due to a fall, had hyponatremia that might have likely led to the fall. Related Data Home Medications Medication Instructions Recorded Confirmed aspirin 81 mg tablet,delayed 1 tab PO DAILY 11/07/17 10/31/19 release atorvastatin 40 mg tablet 1 tab PO BEDTIME 11/07/17 10/31/19 docusate calcium 240 mg capsule 1 cap PO BEDTIME 11/07/17 10/31/19 losartan 50 mg tablet 100 mg PO QPM 11/07/17 10/31/19 amlodipine 10 mg tablet 1 tab PO DAILY 06/11/18 10/31/19 diphenhydramine 25 1 tab PO BEDTIME PRN 06/11/18 10/31/19 mg-acetaminophen 500 mg tablet (Acetaminophen PM) docusate sodium 100 mg tablet 100 mg PO BID 06/11/18 10/31/19 meclizine 25 mg tablet 25 mg PO Q8H PRN 06/11/18 10/31/19 metoprolol succinate 25 mg 1 tab PO DAILY 06/11/18 10/31/19 tablet,extended release 24 hr sennosides 8.6 mg tablet (senna) 8.6 mg PO BID 06/11/18 10/31/19 levothyroxine 200 mcg tablet 200 mcg PO 0700 08/09/18 10/31/19 apixaban 5 mg tablet (Eliquis) 5 mg PO DAILY 10/31/19 10/31/19 fluticasone propionate 50 1 spray INTRANASAL BID 10/31/19 10/31/19 mcg/actuation nasal spray,suspension (Flonase Allergy Relief) [id number] 200 mcg-vit K 100 1 cap PO DAILY 10/31/19 10/31/19 mcg-lycop 500 [id number] capsule (Daily Multivitamin) sodium chloride 1 g PO DAILY 11/05/19 11/05/19 Previous Rx's Medication Instructions Recorded acetaminophen 325 mg tablet 975 mg PO TID #90 tab 11/05/19 bisacodyl 10 mg rectal suppository 10 mg MA DAILY PRN #10 ea 11/05/19 calcium carbonate 500 mg-vitamin 1 ea PO BIDWM #60 tab 11/05/19 D3 5 mcg (200 unit) tablet (Oyster Shell Calcium-Vitamin D3) ferrous gluconate 324 mg (38 mg 324 mg PO DAILY #30 tab 11/05/19 iron) tablet oxycodone 5 mg tablet 5 mg PO Q3HR PRN #15 tab 11/05/19 polyethylene glycol 3350 17 gram 17 gm PO DAILY PRN #30 ea 11/05/19 oral powder packet pregabalin 150 mg capsule 1 cap PO TID #10 cap 11/05/19 cefpodoxime 200 mg tablet 200 mg PO BID 10 Days #20 tab 06/04/21 cefpodoxime 200 mg tablet 200 mg PO BID 10 Days #20 tab 06/04/21 Allergies Allergy/AdvReac Type Severity Reaction Status Date / Time No Known Drug Allergies Allergy Verified 03/26/20 14:22 Review of Systems <Naomie Yin PA-C - Last Filed: 06/04/21 20:16> Review of Systems ROS Unobtainable: All systems reviewed & are unremarkable except as noted in HPI and below Constitutional Constitutional: Denies chills, Denies fatigue, Denies fever(s), Denies frequent falls, Denies lethargy and Denies weakness Eyes Eyes: Denies change in vision, Denies eye discharge, Denies irritation and Denies loss of vision ENT Ears, Nose, Mouth, and Throat: Denies change in voice, Denies dizziness, Denies neck pain, Denies sore throat and Denies throat swelling Cardiovascular Cardiovascular: Denies chest pain, Denies irregular heart rhythm, Denies lightheadedness, Denies palpitations, Denies dyspnea, Denies dyspnea on exertion and Denies orthopnea Respiratory Respiratory: Denies cough, Denies dyspnea, Denies dyspnea on exertion and Denies wheezing Gastrointestinal Gastrointestinal: Denies abdominal pain, Denies change in bowel habits, Denies diarrhea, Denies nausea and Denies vomiting Genitourinary Genitourinary: Denies hematuria, Denies flank pain, Denies urinary incontinence and Denies urinary urgency Musculoskeletal Musculoskeletal: Denies back pain, Denies muscle weakness, Denies neck pain, Denies numbness and Denies tingling Comments: Right shoulder pain Integumentary/Breasts Skin/Breast: Denies pruritus, Denies erythema, Denies rash and Denies wounds Neurologic Neurologic: Denies behavioral changes, Denies confusion, Denies dizziness, Denies frequent falls, Denies loss of vision, Denies numbness, Denies tingling and Denies weakness Psychiatric Psychiatric: Denies anxiety, Denies behavioral changes, Denies confusion, Denies depression, Denies homicidal ideation and Denies suicidal ideation Endocrine Endocrine: Denies fatigue, Denies flushing and Denies palpitations Hematologic/Lymphatic Hematologic/Lymphatic: Denies easy bruising Allergic/Immunologic Allergic/Immunologic: Denies urticaria, Denies throat swelling and Denies wheezing Patient History <Naomie Yin PA-C - Last Filed: 06/04/21 20:16> Medical History Bladder cancer Coronary artery disease Hypertension Hyponatremia Hypothyroid Kidney stones Prostate cancer Thyroid cancer Surgical History H/O colectomy H/O thyroidectomy History of appendectomy History of urostomy S/P hip replacement Family History Father Alcoholism Mother Alcoholism Social History household members: spouse Smoking Status: Former smoker alcohol intake: former substance use type: does not use Smoking Status: Former smoker alcohol intake frequency: other Substance Use Type: does not use Exam <Naomie Yin PA-C - Last Filed: 06/04/21 20:16> Initial Vital Signs Initial Vital Signs: Vital Signs Temperature 98.6 F 06/04/21 12:44 Pulse Rate 60 06/04/21 12:44 Respiratory Rate 23 06/04/21 12:44 Pulse Oximetry 93 06/04/21 12:44 Const General: cooperative, healthy appearing and comfortable HENMT Head: abrasion Ears: hearing grossly normal bilaterally Nose: external nose normal Eyes General: appearance normal, both eyes and all related structures Neck Neck: normal visual inspection Chest Chest: normal inspection of the chest Resp Effort & Inspection: normal respiratory effort Auscultation: clear to auscultation bilaterally Cardio Rate: regular rate Rhythm: regular rhythm GI Inspection: normal to inspection Other: Abdomen is soft, nondistended, nontender to palpation. General: No CVA tenderness Back/Spine/Pelvis Back: normal to inspection Skin General: no rashes or lesions noted Neuro General: patient alert, patient awake and patient oriented x3 Other: PERRLA. CN 1 through 12 intact bilaterally. Neurovascularly intact. Extrem Other: Tender to palpation of right shoulder, right upper arm. Right arm movement limited by pain. Neurovascularly intact. No bruising. Skin intact. Psych Appearance: grossly normal Mental Status: mental status grossly normal Speech and Movement: speech clear <Ricky Hernandez DO - Last Filed: 06/05/21 07:07> Initial Vital Signs Initial Vital Signs: Vital Signs Temperature 98.6 F 06/04/21 12:44 Pulse Rate 60 06/04/21 12:44 Respiratory Rate 23 06/04/21 12:44 Pulse Oximetry 93 06/04/21 12:44 Course <Naomie Yin PA-C - Last Filed: 06/04/21 20:16> Orders Ordered: Discontinued Medications Sodium Chloride (Normal Saline 0.9%) 1,000 mls @ 1,000 mls/hr IV BOLUS ONE Stop: 06/04/21 16:55 Last Infusion: 06/04/21 18:41 Dose: 0 mls/hr Documented by: Admin: 06/04/21 16:36 Dose: 1,000 mls/hr Documented by: BTONER Morphine Sulfate (Morphine 4 Mg/Ml Inj) 4 mg IV NOW ONE Stop: 06/04/21 13:30 Last Admin: 06/04/21 14:35 Dose: 4 mg Documented by: BTONER Morphine Sulfate (Morphine 2 Mg/Ml Inj) 4 mg IV NOW ONE Stop: 06/04/21 15:56 Last Admin: 06/04/21 16:36 Dose: 4 mg Documented by: BTONER Morphine Sulfate (Morphine 2 Mg/Ml Inj) 2 mg IV NOW ONE Stop: 06/04/21 16:27 Last Admin: 06/04/21 16:35 Dose: Not Given Documented by: LILLYONER Vital Signs Vital signs: Vital Signs - 8 hr 06/04/21 12:44 06/04/21 12:45 06/04/21 13:00 Temperature 98.6 F Pulse Rate 60 61 56 L Respiratory Rate 23 17 9 L Blood Pressure 137/63 133/60 Pulse Oximetry 93 92 94 06/04/21 13:30 06/04/21 14:00 06/04/21 14:30 Temperature Pulse Rate 55 L 55 L 52 L Respiratory Rate 13 21 16 Blood Pressure 147/63 H Pulse Oximetry 93 92 99 06/04/21 15:00 06/04/21 15:30 06/04/21 16:00 Temperature Pulse Rate 55 L 53 L 54 L Respiratory Rate 29 H 16 20 Blood Pressure Pulse Oximetry 98 98 97 06/04/21 16:30 06/04/21 17:00 06/04/21 17:30 Temperature Pulse Rate 53 L 54 L 56 L Respiratory Rate 15 11 L 24 Blood Pressure Pulse Oximetry 98 97 98 06/04/21 17:34 06/04/21 18:00 Temperature Pulse Rate 57 L 54 L Respiratory Rate 20 19 Blood Pressure 162/66 H 142/65 H Pulse Oximetry 96 90 L <Ricky Hernandez DO - Last Filed: 06/05/21 07:07> Orders Ordered: Discontinued Medications Sodium Chloride (Normal Saline 0.9%) 1,000 mls @ 1,000 mls/hr IV BOLUS ONE Stop: 06/04/21 16:55 Last Infusion: 06/04/21 18:41 Dose: 0 mls/hr Documented by: Admin: 06/04/21 16:36 Dose: 1,000 mls/hr Documented by: BTONER Morphine Sulfate (Morphine 4 Mg/Ml Inj) 4 mg IV NOW ONE Stop: 06/04/21 13:30 Last Admin: 06/04/21 14:35 Dose: 4 mg Documented by: BTONER Morphine Sulfate (Morphine 2 Mg/Ml Inj) 4 mg IV NOW ONE Stop: 06/04/21 15:56 Last Admin: 06/04/21 16:36 Dose: 4 mg Documented by: BTONER Morphine Sulfate (Morphine 2 Mg/Ml Inj) 2 mg IV NOW ONE Stop: 06/04/21 16:27 Last Admin: 06/04/21 16:35 Dose: Not Given Documented by: BTONER Vital Signs Vital signs: Vital Signs - 8 hr 06/04/21 12:44 06/04/21 12:45 06/04/21 13:00 Temperature 98.6 F Pulse Rate 60 61 56 L Respiratory Rate 23 17 9 L Blood Pressure 137/63 133/60 Pulse Oximetry 93 92 94 06/04/21 13:30 06/04/21 14:00 06/04/21 14:30 Temperature Pulse Rate 55 L 55 L 52 L Respiratory Rate 13 21 16 Blood Pressure 147/63 H Pulse Oximetry 93 92 99 06/04/21 15:00 06/04/21 15:30 06/04/21 16:00 Temperature Pulse Rate 55 L 53 L 54 L Respiratory Rate 29 H 16 20 Blood Pressure Pulse Oximetry 98 98 97 06/04/21 16:30 06/04/21 17:00 06/04/21 17:30 Temperature Pulse Rate 53 L 54 L 56 L Respiratory Rate 15 11 L 24 Blood Pressure Pulse Oximetry 98 97 98 06/04/21 17:34 06/04/21 18:00 Temperature Pulse Rate 57 L 54 L Respiratory Rate 20 19 Blood Pressure 162/66 H 142/65 H Pulse Oximetry 96 90 L MDM - Extremity Injury (Upper) <Naomie Yin PA-C - Last Filed: 06/04/21 20:16> Lab Data Lab results narrative: Labs within normal limits. UA positive for UTI. Result diagrams: 06/04/21 14:40 06/04/21 14:40 Labs: Lab Results 06/04/21 06/04/21 06/04/21 Range/Units 14:40 14:40 14:40 WBC 10.7 (4.5-11.0) X10^3/uL RBC 4.05 L (4.5-5.9) X10^6/uL Hgb 10.9 L (13.5-17.5) g/dL Hct 33.4 L (41-53) % MCV 82.5 (80-100) fL MCH 26.9 (26-34) PG MCHC 32.6 (30-36) % RDW 17.3 H (11.6-14.8) % Plt Count 202 (150-400) X10^3/uL Neut % (Auto) 82.6 H (50-75) % Lymph % (Auto) 5.9 L (25-40) % Dickinson % (Auto) 9.1 (3-14) % Eos % (Auto) 2.1 (2-4) % Baso % (Auto) 0.3 (0-2) % Neut # (Auto) 8900 H (6289-7892) /uL Lymph # (Auto) 600 L (8889-8723) /uL Dickinson # (Auto) 1000 H (0-900) /uL Eos # (Auto) 200 (0-450) /uL Baso # (Auto) 0 (0-100) /uL PT 13.0 H (10.1-12.7) SECONDS INR 1.2 (0.9-1.3) APTT 32 (26.4-36.2) SECONDS Sodium 128 L (137-145) mmol/L Potassium 4.7 (3.4-5.1) mmol/L Chloride 95 L (98-107) mmol/L Carbon Dioxide 33 H (22-32) mmol/L BUN 15 (9-20) mg/dL Creatinine 0.97 (0.66-1.25) mg/dL Estimated GFR > 60.0 (>60) mL/min BUN/Creatinine Ratio 15.5 (6-22) Glucose 106 (80-110) mg/dL Lactate (0.7-2.1) mmol/L Calcium 8.3 L (8.4-10.2) mg/dL Total Bilirubin 0.3 (0.2-1.3) mg/dL AST 36 (17-59) IU/L ALT 13 (<50) IU/L Alkaline Phosphatase 62 (38-126) U/L Total Creatine Kinase (55-170) U/L CK-MB (CK-2) (<2.37) ng/mL CK-MB (CK-2) Rel Index (1.5-5.0) % Troponin I (0.01-0.034) ng/mL Total Protein 6.6 (6.3-8.2) g/dL Albumin 3.5 (3.5-5.0) g/dL Globulin 3.1 (1.7-4.1) g/dL Albumin/Globulin Ratio 1.1 (1.0-2.8) Urine RBC (0-5/HPF) Urine WBC (0-5/HPF) Amorphous Sediment Urine Bacteria (None) Ur Culture Indicated? SARS-CoV-2 (PCR) (Negative) 06/04/21 06/04/21 06/04/21 Range/Units 14:40 14:40 14:41 WBC (4.5-11.0) X10^3/uL RBC (4.5-5.9) X10^6/uL Hgb (13.5-17.5) g/dL Hct (41-53) % MCV (80-100) fL MCH (26-34) PG MCHC (30-36) % RDW (11.6-14.8) % Plt Count (150-400) X10^3/uL Neut % (Auto) (50-75) % Lymph % (Auto) (25-40) % Dickinson % (Auto) (3-14) % Eos % (Auto) (2-4) % Baso % (Auto) (0-2) % Neut # (Auto) (1410-3691) /uL Lymph # (Auto) (2781-8289) /uL Dickinson # (Auto) (0-900) /uL Eos # (Auto) (0-450) /uL Baso # (Auto) (0-100) /uL PT (10.1-12.7) SECONDS INR (0.9-1.3) APTT (26.4-36.2) SECONDS Sodium (137-145) mmol/L Potassium (3.4-5.1) mmol/L Chloride (98-107) mmol/L Carbon Dioxide (22-32) mmol/L BUN (9-20) mg/dL Creatinine (0.66-1.25) mg/dL Estimated GFR (>60) mL/min BUN/Creatinine Ratio (6-22) Glucose (80-110) mg/dL Lactate 0.6 L (0.7-2.1) mmol/L Calcium (8.4-10.2) mg/dL Total Bilirubin (0.2-1.3) mg/dL AST (17-59) IU/L ALT (<50) IU/L Alkaline Phosphatase (38-126) U/L Total Creatine Kinase 294 H (55-170) U/L CK-MB (CK-2) 2.20 (<2.37) ng/mL CK-MB (CK-2) Rel Index 0.7 L (1.5-5.0) % Troponin I 0.019 (0.01-0.034) ng/mL Total Protein (6.3-8.2) g/dL Albumin (3.5-5.0) g/dL Globulin (1.7-4.1) g/dL Albumin/Globulin Ratio (1.0-2.8) Urine RBC (0-5/HPF) Urine WBC (0-5/HPF) Amorphous Sediment Urine Bacteria (None) Ur Culture Indicated? SARS-CoV-2 (PCR) Negative (Negative) 06/04/21 Range/Units 18:08 WBC (4.5-11.0) X10^3/uL RBC (4.5-5.9) X10^6/uL Hgb (13.5-17.5) g/dL Hct (41-53) % MCV (80-100) fL MCH (26-34) PG MCHC (30-36) % RDW (11.6-14.8) % Plt Count (150-400) X10^3/uL Neut % (Auto) (50-75) % Lymph % (Auto) (25-40) % Dickinson % (Auto) (3-14) % Eos % (Auto) (2-4) % Baso % (Auto) (0-2) % Neut # (Auto) (8822-3859) /uL Lymph # (Auto) (1008-5028) /uL Dickinson # (Auto) (0-900) /uL Eos # (Auto) (0-450) /uL Baso # (Auto) (0-100) /uL PT (10.1-12.7) SECONDS INR (0.9-1.3) APTT (26.4-36.2) SECONDS Sodium (137-145) mmol/L Potassium (3.4-5.1) mmol/L Chloride (98-107) mmol/L Carbon Dioxide (22-32) mmol/L BUN (9-20) mg/dL Creatinine (0.66-1.25) mg/dL Estimated GFR (>60) mL/min BUN/Creatinine Ratio (6-22) Glucose (80-110) mg/dL Lactate (0.7-2.1) mmol/L Calcium (8.4-10.2) mg/dL Total Bilirubin (0.2-1.3) mg/dL AST (17-59) IU/L ALT (<50) IU/L Alkaline Phosphatase (38-126) U/L Total Creatine Kinase (55-170) U/L CK-MB (CK-2) (<2.37) ng/mL CK-MB (CK-2) Rel Index (1.5-5.0) % Troponin I (0.01-0.034) ng/mL Total Protein (6.3-8.2) g/dL Albumin (3.5-5.0) g/dL Globulin (1.7-4.1) g/dL Albumin/Globulin Ratio (1.0-2.8) Urine RBC 0-1/hpf (0-5/HPF) Urine WBC 5-10/hpf H (0-5/HPF) Amorphous Sediment 2+ Urine Bacteria Moderate (10-30) H (None) Ur Culture Indicated? [employer] SARS-CoV-2 (PCR) (Negative) Urine Dip Bedside Urine Glucose Negative Bedside Urine Bilirubin - Negative Bedside Urine Ketone - Negative Urine Specific Eldridge 1.015 Bedside Urine Occult Blood - Negative Bedside Urine pH 7.0 Bedside Urine Protein - Negative Bedside Urine Urobilinogen - Negative Bedside Urine Nitrite - Negative Bedside Urine Leukocytes ++ [address] scan - head: Radiologist's Impression: PROCEDURE:? CT HEAD/BRAIN WO CON ? INDICATIONS:? Fall on eliquis ? TECHNIQUE:? Noncontrast 4.5 mm thick angled axial sections acquired from the foramen magnum to the vertex, with coronal and sagittal reformats.? For radiation dose reduction, the following was used:? automated exposure control, adjustment of mA and/or kV according to patient size.? ? COMPARISON:? None. ? FINDINGS:? Image quality:? Excellent.? ? CSF spaces:? Basal cisterns are patent.? No extra-axial fluid collections.? The ventricles are symmetric in size and shape.? ? Brain:? No intracranial bleeds or masses.? There is cerebral volume loss for age, with resultant ventricular and sulcal prominence.? There are periventricular and deep white matter chronic small vessel ischemic changes.? There is intracranial internal carotid artery atherosclerosis.? ? Skull and face:? Calvarium and visualized facial bones appear intact, without suspicious lesions.? ? Sinuses:? Visualized sinuses and mastoids are clear.? ? IMPRESSION:? No acute intracranial abnormality. ? ? Dictated by: Eladio Preciado M.D. on 06/04/2021 at 13:51 ? ? Approved by: Eladio Preciado M.D. on 06/04/2021 at 13:58 ? CT - cervical spine: Radiologist's Impression: PROCEDURE:? CT CERVICAL SPINE WO CON ? INDICATIONS:? Fall on eliquis ? TECHNIQUE:? Noncontrast 3 mm thick sections acquired from the skull base to the T4 level.? Sagittal and coronal reformats were then constructed.? For radiation dose reduction, the following was used:? automated exposure control, adjustment of mA and/or kV according to patient size.? ? COMPARISON:? None. ? FINDINGS:? Image quality:? Excellent.? ? Bones:? Extensive moderate to severe degenerative changes.? No fracture, listhesis, subluxation, or dislocation. ? Soft tissues:? Prevertebral soft tissues are normal in thickness.? No paravertebral hematomas.? No apical pneumothoraces.? ? ? IMPRESSION:? No CT evidence of acute traumatic cervical spine injury. ? Dictated by: Eladio Preciado M.D. on 06/04/2021 at 13:58 ? ? Approved by: Eladio Preciado M.D. on 06/04/2021 at 13:59 ? Extremity x-ray #1: Radiologist's Impression: PROCEDURE:? XR SHOULDER RT MIN 2V ? INDICATIONS:? Fall ? TECHNIQUE:? 3 views of the shoulder were acquired.? ? COMPARISON:? None. ? FINDINGS:? ? Bones:? Comminuted displaced fracture of the proximal humeral head and neck is seen.? The humeral shaft fracture is laterally displaced and impacted as well as slightly angulated relative to the main humeral head component.? Moderate acromioclavicular joint osteoarthrosis. ? Soft tissues:? No suspicious soft tissue calcifications.? Moderate aortic atherosclerotic calcifications.? Surgical clips are seen in the lower neck. ? IMPRESSION:? Comminuted moderately displaced fracture of the proximal humeral head and neck. ? ? Dictated by: Tavo Stringer M.D. on 06/04/2021 at 14:13 ? ? Approved by: Tavo Stringer M.D. on 06/04/2021 at 14:14 ? Extremity x-ray #2: Radiologist's Impression: PROCEDURE:? XR HUMERUS RT 2V ? INDICATIONS:? Fallright shoulder ? TECHNIQUE:? 2 views of the humerus were acquired.? ? COMPARISON:? None. ? FINDINGS:? ? Bones:? Comminuted displaced and impacted fracture of the proximal humeral head and neck is seen.? The humeral shaft component is impacted and laterally displaced and there is mild varus angulation relative to the main humeral head component. ? Soft tissues:? No suspicious soft tissue calcifications.? ? IMPRESSION:? Comminuted displaced and impacted fracture of the proximal humeral head and neck. ? ? Dictated by: Tavo Stringer M.D. on 06/04/2021 at 14:15 ? ? Approved by: Tavo Stringer M.D. on 06/04/2021 at 14:18 ? Extremity x-ray #3: Radiologist's Impression: PROCEDURE:? XR CLAVICLE RT ? INDICATIONS:? Fall right extremity pain ? TECHNIQUE:? 2 views of the clavicle were acquired.? ? COMPARISON:? None. ? FINDINGS:? ? Bones:? Fracture of the proximal humerus is partially imaged.? No suspicious bony lesions.? Moderate acromioclavicular joint osteoarthrosis. ? Soft tissues:? No suspicious soft tissue calcifications.? Surgical clips are seen in the right lower neck. ? IMPRESSION:? Intact clavicle.? Proximal humeral fracture is partially imaged. ? ? Dictated by: Tavo Stringer M.D. on 06/04/2021 at 14:07 ? ? Approved by: Tavo Stringer M.D. on 06/04/2021 at 14:13 ? Chest x-ray: Radiologist's Impression: PROCEDURE:? XR CHEST 1V ? INDICATIONS:? Fall ? TECHNIQUE:? One view of the chest was acquired.? ? COMPARISON:? None. ? FINDINGS:? ? Surgical changes and devices:? None.? ? Lungs and pleura:? Lungs are clear.? No pleural effusions or pneumothorax.? ? Mediastinum:? Mediastinal contours appear normal.? Heart size is normal.? ? Bones and chest wall:? No suspicious bony lesions.? Overlying soft tissues appear unremarkable.? ? IMPRESSION:? No acute cardiopulmonary process demonstrated radiographically.? Please note that this thoracic spine and other osseous structures of the chest are not ideally evaluated.? Cross-sectional imaging recommended if there is concern for fracture.? ? Dictated by: Eladio Preciado M.D. on 06/04/2021 at 14:12 ? ? Approved by: Eladio Preciado M.D. on 06/04/2021 at 14:13 ? ECG Data Interpretation: Sinus bradycardia, no acute ST-T changes. MDM Narrative Medical decision making narrative: 85-year-old male with past medical history hyponatremia, anemia, AFib presents to the ED status post a ground level fall sustained just prior to arrival. Concern for fractures/dislocation versus intracranial hemorrhage versus ACS versus metabolic derangements versus infection. Will order labs, lactate, UA, troponin, chest x-ray, EKG, CT head, CT C-spine, shoulder and humerus x-rays. Will give morphine for pain. Will consult social Work regarding the frequent falls and possible need for home health. Will reassess. X-ray shows right-sided proximal humerus fracture. UA positive for UTI. CT head and CT C-spine with no acute findings. Labs within normal limits. Patient fitted with a sling, referral given to [facility] for follow- up. Prescription for antibiotics sent to the pharmacy. Social work provided resources for home health aide. Counseled patient on ED return precautions. Patient verbalized understanding. Discharge patient. <Ricky Hernandez DO - Last Filed: 06/05/21 07:07> Lab Data Labs: Lab Results 06/04/21 06/04/21 06/04/21 Range/Units 14:40 14:40 14:40 WBC 10.7 (4.5-11.0) X10^3/uL RBC 4.05 L (4.5-5.9) X10^6/uL Hgb 10.9 L (13.5-17.5) g/dL Hct 33.4 L (41-53) % MCV 82.5 (80-100) fL MCH 26.9 (26-34) PG MCHC 32.6 (30-36) % RDW 17.3 H (11.6-14.8) % Plt Count 202 (150-400) X10^3/uL Neut % (Auto) 82.6 H (50-75) % Lymph % (Auto) 5.9 L (25-40) % Dickinson % (Auto) 9.1 (3-14) % Eos % (Auto) 2.1 (2-4) % Baso % (Auto) 0.3 (0-2) % Neut # (Auto) 8900 H (2879-0193) /uL Lymph # (Auto) 600 L (0103-1761) /uL Dickinson # (Auto) 1000 H (0-900) /uL Eos # (Auto) 200 (0-450) /uL Baso # (Auto) 0 (0-100) /uL PT 13.0 H (10.1-12.7) SECONDS INR 1.2 (0.9-1.3) APTT 32 (26.4-36.2) SECONDS Sodium 128 L (137-145) mmol/L Potassium 4.7 (3.4-5.1) mmol/L Chloride 95 L (98-107) mmol/L Carbon Dioxide 33 H (22-32) mmol/L BUN 15 (9-20) mg/dL Creatinine 0.97 (0.66-1.25) mg/dL Estimated GFR > 60.0 (>60) mL/min BUN/Creatinine Ratio 15.5 (6-22) Glucose 106 (80-110) mg/dL Lactate (0.7-2.1) mmol/L Calcium 8.3 L (8.4-10.2) mg/dL Total Bilirubin 0.3 (0.2-1.3) mg/dL AST 36 (17-59) IU/L ALT 13 (<50) IU/L Alkaline Phosphatase 62 (38-126) U/L Total Creatine Kinase (55-170) U/L CK-MB (CK-2) (<2.37) ng/mL CK-MB (CK-2) Rel Index (1.5-5.0) % Troponin I (0.01-0.034) ng/mL Total Protein 6.6 (6.3-8.2) g/dL Albumin 3.5 (3.5-5.0) g/dL Globulin 3.1 (1.7-4.1) g/dL Albumin/Globulin Ratio 1.1 (1.0-2.8) Urine RBC (0-5/HPF) Urine WBC (0-5/HPF) Amorphous Sediment Urine Bacteria (None) Ur Culture Indicated? SARS-CoV-2 (PCR) (Negative) 06/04/21 06/04/21 06/04/21 Range/Units 14:40 14:40 14:41 WBC (4.5-11.0) X10^3/uL RBC (4.5-5.9) X10^6/uL Hgb (13.5-17.5) g/dL Hct (41-53) % MCV (80-100) fL MCH (26-34) PG MCHC (30-36) % RDW (11.6-14.8) % Plt Count (150-400) X10^3/uL Neut % (Auto) (50-75) % Lymph % (Auto) (25-40) % Dickinson % (Auto) (3-14) % Eos % (Auto) (2-4) % Baso % (Auto) (0-2) % Neut # (Auto) (0854-2876) /uL Lymph # (Auto) (0828-2771) /uL Dickinson # (Auto) (0-900) /uL Eos # (Auto) (0-450) /uL Baso # (Auto) (0-100) /uL PT (10.1-12.7) SECONDS INR (0.9-1.3) APTT (26.4-36.2) SECONDS Sodium (137-145) mmol/L Potassium (3.4-5.1) mmol/L Chloride (98-107) mmol/L Carbon Dioxide (22-32) mmol/L BUN (9-20) mg/dL Creatinine (0.66-1.25) mg/dL Estimated GFR (>60) mL/min BUN/Creatinine Ratio (6-22) Glucose (80-110) mg/dL Lactate 0.6 L (0.7-2.1) mmol/L Calcium (8.4-10.2) mg/dL Total Bilirubin (0.2-1.3) mg/dL AST (17-59) IU/L ALT (<50) IU/L Alkaline Phosphatase (38-126) U/L Total Creatine Kinase 294 H (55-170) U/L CK-MB (CK-2) 2.20 (<2.37) ng/mL CK-MB (CK-2) Rel Index 0.7 L (1.5-5.0) % Troponin I 0.019 (0.01-0.034) ng/mL Total Protein (6.3-8.2) g/dL Albumin (3.5-5.0) g/dL Globulin (1.7-4.1) g/dL Albumin/Globulin Ratio (1.0-2.8) Urine RBC (0-5/HPF) Urine WBC (0-5/HPF) Amorphous Sediment Urine Bacteria (None) Ur Culture Indicated? SARS-CoV-2 (PCR) Negative (Negative) 06/04/21 Range/Units 18:08 WBC (4.5-11.0) X10^3/uL RBC (4.5-5.9) X10^6/uL Hgb (13.5-17.5) g/dL Hct (41-53) % MCV (80-100) fL MCH (26-34) PG MCHC (30-36) % RDW (11.6-14.8) % Plt Count (150-400) X10^3/uL Neut % (Auto) (50-75) % Lymph % (Auto) (25-40) % Dickinson % (Auto) (3-14) % Eos % (Auto) (2-4) % Baso % (Auto) (0-2) % Neut # (Auto) (2753-0173) /uL Lymph # (Auto) (9380-1308) /uL Dickinson # (Auto) (0-900) /uL Eos # (Auto) (0-450) /uL Baso # (Auto) (0-100) /uL PT (10.1-12.7) SECONDS INR (0.9-1.3) APTT (26.4-36.2) SECONDS Sodium (137-145) mmol/L Potassium (3.4-5.1) mmol/L Chloride (98-107) mmol/L Carbon Dioxide (22-32) mmol/L BUN (9-20) mg/dL Creatinine (0.66-1.25) mg/dL Estimated GFR (>60) mL/min BUN/Creatinine Ratio (6-22) Glucose (80-110) mg/dL Lactate (0.7-2.1) mmol/L Calcium (8.4-10.2) mg/dL Total Bilirubin (0.2-1.3) mg/dL AST (17-59) IU/L ALT (<50) IU/L Alkaline Phosphatase (38-126) U/L Total Creatine Kinase (55-170) U/L CK-MB (CK-2) (<2.37) ng/mL CK-MB (CK-2) Rel Index (1.5-5.0) % Troponin I (0.01-0.034) ng/mL Total Protein (6.3-8.2) g/dL Albumin (3.5-5.0) g/dL Globulin (1.7-4.1) g/dL Albumin/Globulin Ratio (1.0-2.8) Urine RBC 0-1/hpf (0-5/HPF) Urine WBC 5-10/hpf H (0-5/HPF) Amorphous Sediment 2+ Urine Bacteria Moderate (10-30) H (None) 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 Your CT of the head and cervical spine were normal. Your x-ray showed a proximal humerus fracture on the right shoulder. Please make sure you keep the right arm in a sling and follow-up with [facility] at [phone] as soon as possible. Your urine showed evidence of a UTI, you have been prescribed an antibiotic. Please complete the full course of antibiotics. Return to the ED if any of your symptoms worsen, you experience fever, chills. Prescriptions: New cefpodoxime 200 mg tablet 200 mg PO BID 10 Days Qty: 20 0RF Rx Instructions: must administer with a meal/food cefpodoxime 200 mg tablet 200 mg PO BID 10 Days Qty: 20 0RF Rx Instructions: must administer with a meal/food No Action losartan 50 mg tablet 100 mg PO QPM 0RF atorvastatin 40 mg tablet 1 tab PO BEDTIME 0RF docusate calcium 240 mg capsule 1 cap PO BEDTIME 0RF aspirin 81 mg tablet,delayed release (DR/EC) 1 tab PO DAILY 0RF Label Comments: he takes every other day levothyroxine 200 mcg Tablet 200 mcg PO 0700 0RF sennosides [senna] 8.6 mg Tablet 8.6 mg PO BID 0RF amlodipine 10 mg tablet 1 tab PO DAILY 0RF Label Comments: AM metoprolol succinate 25 mg tablet extended release 24 hr 1 tab PO DAILY 0RF Label Comments: AM diphenhydramine-acetaminophen [Acetaminophen PM] 25-500 mg Tablet 1 tab PO BEDTIME PRN (Reason: Insomnia) 0RF docusate sodium 100 mg Tablet 100 mg PO BID 0RF meclizine 25 mg tablet 25 mg PO Q8H PRN (Reason: Dizziness Or Vertigo) 0RF Eliquis 5 mg tablet 5 mg PO DAILY 0RF fluticasone propionate [Flonase Allergy Relief] 50 mcg/actuation [place],Suspension 1 spray INTRANASAL BID 0RF Daily Multivitamin 200-100-500 mcg Capsule 1 cap PO DAILY 0RF acetaminophen 325 mg Tablet 975 mg PO TID Qty: 90 0RF polyethylene glycol 3350 17 gram Powder In Packet 17 gm PO DAILY PRN (Reason: Constipation) Qty: 30 0RF bisacodyl 10 mg Suppository 10 mg MA DAILY PRN (Reason: Constipation) Qty: 10 0RF oxycodone 5 mg Tablet 5 mg PO Q3HR PRN (Reason: Pain, Moderate (4-6)) Qty: 15 0RF ferrous gluconate 324 mg (38 mg iron) Tablet 324 mg PO DAILY Qty: 30 0RF pregabalin 150 mg capsule 1 cap PO TID Qty: 10 0RF sodium chloride 1 Gram tablet 1 g PO DAILY 0RF calcium carbonate-vitamin D3 [Oyster Shell Calcium-Vit D3] 500 mg(1,250mg) - 200 unit Tablet 1 ea PO BIDWM Qty: 60 0RF Referrals: Rajeev Tanner MD [Primary Care Provider] - <Ricky Hernandez DO - Last Filed: 06/05/21 07:07> Cosign ED Attending Cosignature Attestation: Dr Hernandez Co-Sign Statement: I was available for consultation during this patient's emergency department visit. This chart is signed by myself for administrative purposes only. I did not have direct contact with this patient during this visit. They were seen independently by the APC.
[2021-06-04] MEDS: MORPHINE 4 MG/ML INJ IV (14:35)
[2021-06-04 14:49] LABS: Add Manual Diff / Slide Review NO; Basophils Absolute Auto 0 /uL (0-100); Basophils Percent Auto 0.3 % (0-2); Eosinophils Absolute Auto 200 /uL (0-450); Eosinophils Percent Auto 2.1 % (2-4); Hematocrit 33.4 % (41-53); Hemoglobin 10.9 g/dL (13.5-17.5); Lymphocytes Absolute Auto 600 /uL (1100-4500); Lymphocytes Percent Auto 5.9 % (25-40); Mean Corpuscular HGB Conc 32.6 % (30-36); Mean Corpuscular Hemoglobin 26.9 PG (26-34); Mean Corpuscular Volume 82.5 fL (80-100); Monocytes Absolute Auto 1000 /uL (0-900); Monocytes Percent Auto 9.1 % (3-14); Neutrophils Absolute Auto 8900 /uL (1500-7000); Neutrophils Percent Auto 82.6 % (50-75); Platelet Count 202 X10^3/uL (150-400); Red Blood Cell Count 4.05 X10^6/uL (4.5-5.9); Red Cell Distribution Width 17.3 % (11.6-14.8); White Blood Cell Count 10.7 X10^3/uL (4.5-11.0)
[2021-06-04 14:58] LABS: INR 1.2 (0.9-1.3)
[2021-06-04 15:01] LABS: PTT Partial Thromboplastin Tim 32 SECONDS (26.4-36.2)
[2021-06-04 15:03] LABS: COVID19 -Nasal RAPID Negative (Negative)
[2021-06-04 15:05] LABS: Lactate (Lactic Acid) 0.6 mmol/L (0.7-2.1)
[2021-06-04 15:06] LABS: Alanine Aminotransferase 13 IU/L (<50); Albumin 3.5 g/dL (3.5-5.0); Albumin Globulin Ratio 1.1 (1.0-2.8); Alkaline Phosphatase 62 U/L (38-126); Aspartate Aminotransferase 36 IU/L (17-59); BUN Creatinine Ratio 15.5 (6-22); Bilirubin Total 0.3 mg/dL (0.2-1.3); Blood Urea Nitrogen 15 mg/dL (9-20); Calcium 8.3 mg/dL (8.4-10.2); Carbon Dioxide 33 mmol/L (22-32); Chloride 95 mmol/L (98-107); Estimated Glomerular Filt Rate > 60.0 mL/min (>60); Globulin 3.1 g/dL (1.7-4.1); Glucose 106 mg/dL (80-110); HEMOLYSIS < 15 (0-50); Potassium 4.7 mmol/L (3.4-5.1); Sodium 128 mmol/L (137-145); Total Protein 6.6 g/dL (6.3-8.2)
[2021-06-04 15:14] LABS: Creatine Kinase 294 U/L (55-170)
[2021-06-04 15:17] LABS: Troponin I 0.019 ng/mL (0.01-0.034)
[2021-06-04 15:29] LABS: CKMB % Relative Index 0.7 % (1.5-5.0)
--- NOTE | 2021-06-04 15:38 | CM.DANOTE ---
Addendum entered by Sisi Livingston 06/04/21 18:04: VISITOR SERVICES TECHNICIAN calls [facility] for f/u about referral and was informed by another employee that they do not provide services in [place]. VISITOR SERVICES TECHNICIAN calls [facility] and leaves regarding referral and faxes referral for review. VISITOR SERVICES TECHNICIAN to provide [facility] brochure to patient. JUAN Nieves Original Note: VISITOR SERVICES TECHNICIAN/DCP Note Patient is 85 y/o male who presents to ED via EMS after GLF from bed and concern for shoulder pain. Per CT scan patient has fractured right humeral. Patient is A/Ox4 and presents with his Yael. It is reported that patient typically drives but recently just started driving again and reports concern doing so due to his fracture. Per ED provider, patient will require orthopedic f/u. VISITOR SERVICES TECHNICIAN discusses HH for OT and PT. Patient states that had [facility] in past and would like to try other HH service provider but does not have a preference. VISITOR SERVICES TECHNICIAN provides preferences for patient. Patient reports recent GLFs on regular basis and that he has a FWW but it is usually in his car, patient states he may need another for the house. It is reported that patient has daughter that lives near by but they do not want to burden her to drive. VISITOR SERVICES TECHNICIAN reviews this above with ED provider Naomie Yin PA-C who also recommends RN for HH services. VISITOR SERVICES TECHNICIAN calls [facility] and faxes F2F, order, facesheet and clinicals for review regarding HH referral. It is reported that [facility] needs to review prior to accepting patient. VISITOR SERVICES TECHNICIAN awaiting response VISITOR SERVICES TECHNICIAN to provide patient and with senior resource guide, DME resources, Medicare option list and [facility] brochure. Plan: Patient to d/c to home when medically clear with Ortho f/u, HH referral for PT, OT and RN. 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 No Advance Directives on File No History Provided By Patient,Significant Other, Medical Record Has Patient been admitted in last 30 No days? Prior Living Arrangements House Household Members spouse Type of transporation used prior to Drives own vehicle admit Comment Patient endorses that he just started driving again, but endorses that she can drive too. Independent with ADL's Yes Is patient alert and oriented? Yes Comment has a FWW and Cane at home but doesn't use them regularly. Patient endorses that he keeps it in his car Barriers to Discharge No Referrals Initiated Home Health Additional Comment Pending [facility] referral for RN, PT and OT. If patient plan is home with home health Yes : Has signed face to face form been completed? If patient plan is SNF: Has PASSR been No completed? Please Provide Date Initial DC 06/04/21 Assessment Was Performed
[2021-06-04] MEDS: MORPHINE 2 MG/ML INJ 4 MG IV (16:36)
[2021-06-04] MEDS: SODIUM CHLORIDE 0.9% 1,000 ML 1000 ML IV (16:36)
--- NOTE | 2021-06-04 18:42 | PC.NURSE ---
sling applied to rt shoulder.
[2021-06-04 18:56] LABS: RBC Urine 0-1/HPF (0-5/HPF); WBC Urine 5-10/HPF (0-5/HPF)
[2021-06-04 18:57] LABS: Amorphous Sediment Urine 2+; Bacteria Urine Moderate (10-30)
--- NOTE | 2021-06-04 19:43 | PC.NURSE ---
pt was dizzy when he stood up to discharge. assisted to wheelchair. provided crackers and drink, waited 30 min, pt stood up again and was feeling more stable, explained they could wait longer, pt and spouse felt more confident about going home. daughter drove them and she said if needed her can help as well.
== END 2021-06-04 19:15 | disposition home or self-care (01) ==
PROVIDERS: Emergency Provider Student in an Organized Health Care Education/Training Program; PCP Internal Medicine
DX: S42.291A Other displaced fracture of upper end of right humerus, initial encounter for closed fracture (principal); S00.81XA Abrasion of other part of head, initial encounter; R00.1 Bradycardia, unspecified; N39.0 Urinary tract infection, site not specified; W06.XXXA Fall from bed, initial encounter; Z79.01 Long term (current) use of anticoagulants; Z91.81 History of falling; Z20.822 Contact with and (suspected) exposure to COVID-19
CPT/HCPCS: 36415; 70450; 71045; 72125; 73000; 73030; 73060; 80053; 81003; 81015; 82550; 82553; 83605; 84484; 85025; 85610; 85730; 87077; 87086; 87186; 87635; 93005; 96361; 96374; 96376; 99285; C9803; J2270

== ENCOUNTER → 2021-06-10 14:25 | Outpatient (CLI) | payer MEDICARE, OTHER, SELFPAY ==
[2019-10-31 20:43] VITALS: BMI 26.5
--- NOTE | 2021-06-10 14:28 | DI.CT.S_ITS ---
PROCEDURE: CT UE RT WO CON INDICATIONS: FRACTURE OF PROXIMAL END OF HUMERUS TECHNIQUE: Noncontrast 1-1.5 mm thick sections acquired from the acromioclavicular joint to the inferior scapula, with coronal and sagittal reformatting. COMPARISON: [facility], CR, XR SHOULDER RT MIN 2V, 06/04/2021, 13:35. FINDINGS: Image quality: Excellent. Bones: As seen on previous shoulder radiograph, there is an acute comminuted fracture involving surgical neck/proximal shaft of right humerus. The fracture lines extending to involve greater tuberosity of humeral head with anterolaterally displaced fractured fragments and dorsally displaced fractured fragments. Superior migration of proximal humeral shaft in relation to humeral head is also noted with impaction and up to 9 mm overlapping at fracture site. No other fracture or dislocation is seen. Moderate acromioclavicular joint and glenohumeral joint osteoarthritic changes are noted. No suspicious intraosseous lesion. Visualized right upper ribs are intact. Soft tissues: There is significant soft tissue swelling and edema surrounding proximal humeral fracture site. No abnormal soft tissue calcifications. No gross full-thickness rotator cuff tendon rupture. Mild to moderate supraspinatus muscle atrophy is seen. No significant joint effusion. IMPRESSION: 1. Acute comminuted and impacted proximal humeral shaft/surgical neck fracture with extension to involve greater tuberosity of humeral head. Multiple anterior and posteriorly displaced fractured fragments as above. No dislocation. No other fracture is seen. 2. Moderate right shoulder joint osteoarthritis. No suspicious intraosseous lesion. 3. Soft tissue swelling surrounding proximal humeral fracture site. No abnormal soft tissue calcifications. No full-thickness rotator cuff tendon rupture. Mild to moderate supraspinatus muscle atrophy. Dictated by: Joseph Nuñez M.D. on 06/10/2021 at 16:23 Approved by: Joseph Nuñez M.D. on 06/10/2021 at 16:27
== END ==
PROVIDERS: PCP Internal Medicine; Referring Provider Orthopaedic Surgery; Visit Provider Orthopaedic Surgery
DX: S42.351A Displaced comminuted fracture of shaft of humerus, right arm, initial encounter for closed fracture (principal); S42.251A Displaced fracture of greater tuberosity of right humerus, initial encounter for closed fracture; M19.011 Primary osteoarthritis, right shoulder; M79.89 Other specified soft tissue disorders; X58.XXXA Exposure to other specified factors, initial encounter
CPT/HCPCS: 73200

== ENCOUNTER 2021-06-27 03:57 | Observation (INO) | payer MEDICARE, OTHER, SELFPAY ==
[2019-10-31 20:43] VITALS: BMI 26.5
[2021-06-27] VITALS (10 sets, daily range): BP systolic 104–159; BP diastolic 52–80; PULSE 63–69; RESP 14–20; TEMP 36.3–37; O2SAT 92–98; BMI 26.2
--- NOTE | 2021-06-27 04:01 | DI.CT.S_ITS ---
PROCEDURE: CT HEAD/BRAIN WO CON INDICATIONS: fall/pain TECHNIQUE: Noncontrast 4.5 mm thick angled axial sections acquired from the foramen magnum to the vertex, with coronal and sagittal reformats. For radiation dose reduction, the following was used: automated exposure control, adjustment of mA and/or kV according to patient size. COMPARISON: [facility], CT, CT HEAD/BRAIN WO CON, 06/04/2021, 13:43. FINDINGS: Image quality: Excellent. CSF spaces: Basal cisterns are patent. No extra-axial fluid collections. The ventricles are symmetric in size and shape. Brain: No intracranial bleeds or masses. There is cerebral volume loss for age, with resultant ventricular and sulcal prominence. There are periventricular and deep white matter chronic small vessel ischemic changes. There is intracranial internal carotid artery atherosclerosis. Skull and face: Calvarium and visualized facial bones appear intact, without suspicious lesions. Sinuses: Mucosal thickening/fluid in the left maxillary sinus, otherwise the paranasal sinuses and mastoids are clear. IMPRESSION: 1. No acute intracranial abnormality. 2. Cerebral volume loss and small vessel ischemic changes. 3. Left maxillary sinus disease. Comment: Final report is concordant with preliminary interpretation by [facility] Dictated by: Satish Mohan M.D. on 06/27/2021 at 8:15 Approved by: Satish Mohan M.D. on 06/27/2021 at 8:17
--- NOTE | 2021-06-27 04:01 | DI.CT.S_ITS ---
PROCEDURE: CT LE RT WO CON INDICATIONS: fall/pain TECHNIQUE: Noncontrast 1-1.5 mm axial sections acquired from the mid-patella to the proximal tibia, with coronal and sagittal reformats. COMPARISON: None. FINDINGS: Image quality: Excellent. Bones: Moderate medial, lateral, and patellofemoral joint space narrowing with subchondral sclerosis and cystic changes consistent with osteoarthritis. There is a nondisplaced lateral tibial plateau fracture which extends through the posterior tibial spine and is non depressed. Moderate sized suprapatellar joint effusion. Right patellar enthesophytes. Soft tissues: Myotendinous insertions are normal. Minimal atherosclerotic calcifications in the popliteal arteries. IMPRESSION: 1. Nondisplaced lateral tibial plateau fracture with a moderate-sized suprapatellar joint effusion. 2. Tricompartmental degenerative changes consistent with osteoarthritis. Comment: Final report is concordant with preliminary interpretation by [facility] Dictated by: Satish Mohan M.D. on 06/27/2021 at 8:18 Approved by: Satish Mohan M.D. on 06/27/2021 at 8:20
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
[2021-06-27] MEDS: BACITRACIN OINT 0.9 GM PCKT 1 APPLIC TOP (04:35)
[2021-06-27 05:31] LABS: Add Manual Diff / Slide Review NO; Basophils Absolute Auto 100 /uL (0-100); Basophils Percent Auto 0.8 % (0-2); Eosinophils Absolute Auto 100 /uL (0-450); Hematocrit 32.7 % (41-53); Hemoglobin 10.7 g/dL (13.5-17.5); Lymphocytes Absolute Auto 600 /uL (1100-4500); Lymphocytes Percent Auto 5.6 % (25-40); Mean Corpuscular HGB Conc 32.9 % (30-36); Mean Corpuscular Hemoglobin 27.3 PG (26-34); Mean Corpuscular Volume 82.9 fL (80-100); Monocytes Absolute Auto 1000 /uL (0-900); Monocytes Percent Auto 9.2 % (3-14); Neutrophils Absolute Auto 8800 /uL (1500-7000); Neutrophils Percent Auto 83.4 % (50-75); Platelet Count 247 X10^3/uL (150-400); Red Blood Cell Count 3.94 X10^6/uL (4.5-5.9); Red Cell Distribution Width 15.6 % (11.6-14.8); White Blood Cell Count 10.5 X10^3/uL (4.5-11.0)
[2021-06-27 05:53] LABS: COVID19 -Nasal RAPID POSITIVE (Negative)
[2021-06-27 06:29] LABS: Alanine Aminotransferase 12 IU/L (<50); Albumin 3.7 g/dL (3.5-5.0); Albumin Globulin Ratio 1.2 (1.0-2.8); Alkaline Phosphatase 66 U/L (38-126); Aspartate Aminotransferase 29 IU/L (17-59); Bilirubin Total 0.6 mg/dL (0.2-1.3); Blood Urea Nitrogen 25 mg/dL (9-20); Calcium 8.8 mg/dL (8.4-10.2); Carbon Dioxide 33 mmol/L (22-32); Chloride 96 mmol/L (98-107); Estimated Glomerular Filt Rate 58.1 mL/min (>60); Globulin 3.1 g/dL (1.7-4.1); Glucose 121 mg/dL (80-110); HEMOLYSIS < 15 (0-50); Potassium 4.5 mmol/L (3.4-5.1); Sodium 133 mmol/L (137-145); Total Protein 6.8 g/dL (6.3-8.2)
--- NOTE | 2021-06-27 06:35 | P.HP_ITS ---
History of Present Illness History of Present Illness Date Patient Seen: 06/27/21 Time Patient Seen: 07:17 Chief complaint: Fall Narrative: Francisco J Albarran is an 85 y.o. male with a past medical history significant for bladder cancer status post ileocecal conduit with urostomy, prostate cancer, thyroid cancer status post thyroidectomy, hypothyroidism, nephrolithiasis, coronary artery disease, hypertension, vertigo, peripheral neuropathy and long- term anticoagulation who presented to the ED after he fell and tripped on his front porch stairs and injured his right knee. He was found to have had at right tibial plateau fracture nondisplaced. The patient apparently several weeks ago fell and fractured his right humerus and his right arm is in a sling. When he attempted to negotiate his stairs at his home, his tried to catch him and patient states both of them went down. She was on hurt but he had pain in his right knee and decided to be evaluated in the emergency department. He denies any headaches, losing consciousness, visual changes, shortness of breath, chest pain, nausea vomiting, abdominal pain, he has urinary ileostomy bag, and no complaints of diarrhea or constipation. He does take stool softeners regularly. He is requested for admission for physical therapy and further orthopedic evaluation. The ED did request orthopedic consult and the patient's tibial plateau fracture is initially determined to be nonoperable. Patient is afebrile, blood pressure 140/65, heart rate 66, respiratory rate 7, oxygen saturation of 95% on room air, his CBC is unremarkable is mildly anemic with a hemoglobin of 10.7, sodium 133, chloride 96, bicarb 33, his creatinine is 1.19 with a EGFR 58.1, glucose 121, liver enzymes within normal limits, and he is COVID positive asymptomatic. Patient History Medical History Bladder cancer Closed right humeral fracture Coronary artery disease Hypertension Hyponatremia Hypothyroid Kidney stones Prostate cancer Thyroid cancer Surgical History H/O colectomy H/O thyroidectomy History of appendectomy History of urostomy S/P hip replacement Family & Social History Family History Father Alcoholism Mother Alcoholism Social History: household members spouse Safety & Behavioral: Feels Safe in Current Yes Environment Tobacco & Substance use: Smoking Status Former smoker alcohol intake former alcohol intake frequency other Substance Use Type does not use Meds Home Medications and Allergies Home Medications Medication Instructions Recorded Confirmed Type aspirin 81 mg tablet,delayed 1 tab PO DAILY 11/07/17 10/31/19 History release atorvastatin 40 mg tablet 1 tab PO BEDTIME 11/07/17 10/31/19 History docusate calcium 240 mg capsule 1 cap PO BEDTIME 11/07/17 10/31/19 History losartan 50 mg tablet 100 mg PO QPM 11/07/17 10/31/19 History amlodipine 10 mg tablet 1 tab PO DAILY 06/11/18 10/31/19 History diphenhydramine 25 1 tab PO BEDTIME PRN 06/11/18 10/31/19 History mg-acetaminophen 500 mg tablet (Acetaminophen PM) docusate sodium 100 mg tablet 100 mg PO BID 06/11/18 10/31/19 History meclizine 25 mg tablet 25 mg PO Q8H PRN 06/11/18 10/31/19 History metoprolol succinate 25 mg 1 tab PO DAILY 06/11/18 10/31/19 History tablet,extended release 24 hr sennosides 8.6 mg tablet (senna) 8.6 mg PO BID 06/11/18 10/31/19 History levothyroxine 200 mcg tablet 200 mcg PO 0708/09/18 10/31/19 History apixaban 5 mg tablet (Eliquis) 5 mg PO DAILY 10/31/19 10/31/19 History fluticasone propionate 50 1 spray INTRANASAL BID 10/31/19 10/31/19 History mcg/actuation nasal spray,suspension (Flonase Allergy Relief) [id number] 200 mcg-vit K 100 1 cap PO DAILY 10/31/19 10/31/19 History mcg-lycop 500 [id number] capsule (Daily Multivitamin) acetaminophen 325 mg tablet 975 mg PO TID #90 tab 11/05/19 Rx bisacodyl 10 mg rectal suppository 10 mg [place] DAILY PRN #10 ea 11/05/19 Rx calcium carbonate 500 mg-vitamin 1 ea PO BIDWM #60 tab 11/05/19 Rx D3 5 mcg (200 unit) tablet (Oyster Shell Calcium-Vitamin D3) ferrous gluconate 324 mg (38 mg 324 mg PO DAILY #30 tab 11/05/19 Rx iron) tablet oxycodone 5 mg tablet 5 mg PO Q3HR PRN #15 tab 11/05/19 Rx polyethylene glycol 3350 17 gram 17 gm PO DAILY PRN #30 ea 11/05/19 Rx oral powder packet pregabalin 150 mg capsule 1 cap PO TID #10 cap 11/05/19 Rx sodium chloride 1 g PO DAILY 11/05/19 11/05/19 History Allergies Allergy/AdvReac Type Severity Reaction Status Date / Time No Known Drug Allergies Allergy Verified 03/26/20 14:22 Review of Systems Review of Systems ROS: Yes All systems reviewed with the patient and are negative except as otherwise documented Exam Vital Signs (past 8 hours): - 06/27/21 03:58 06/27/21 04:00 06/27/21 04:30 Temperature 97.4 F L Pulse Rate 67 69 66 Respiratory Rate 18 20 19 Blood Pressure 134/60 134/60 147/80 H Pulse Oximetry 93 93 06/27/21 05:00 Temperature Pulse Rate 64 Respiratory Rate 20 Blood Pressure 159/72 H Pulse Oximetry 94 Oxygen Delivery Method Room Air Narrative Exam Narrative: Gen: Alert, oriented, well-developed 85 y.o. male, chronically ill appearing HEENT: normocephalic, atraumatic, conjunctiva clear, sclera non-icteric, oral mucosa pink and moist Neck: supple, full ROM, no JVD, trachea is midline Resp: Lungs CTA, non-labored breathing CV: RRR, no murmur or rubs Abd: soft, non-tender, normoactive BTs Skin: no lesions or rashes, dry and intact Neuro: Alert and oriented X 4 w/no focal deficits. Speech clear and coherent. Extremities: no lower extremity edema or calf tenderness Psyche: normal mood and affect. Objective Labs Result Diagrams: 06/27/21 05:15 06/27/21 06:05 Labs: Laboratory Results - last 24 hr 06/27/21 06/27/21 06/27/21 05:15 05:15 06:05 WBC 10.5 RBC 3.94 L Hgb 10.7 L Hct 32.7 L MCV 82.9 MCH 27.3 MCHC 32.9 RDW 15.6 H Plt Count 247 Neut % (Auto) 83.4 H Lymph % (Auto) 5.6 L [place] % (Auto) 9.2 Eos % (Auto) 1.0 L Baso % (Auto) 0.8 Neut # (Auto) 8800 H Lymph # (Auto) 600 L [place] # (Auto) 1000 H Eos # (Auto) 100 Baso # (Auto) 100 Sodium 133 L Potassium 4.5 Chloride 96 L Carbon Dioxide 33 H BUN 25 H Creatinine 1.19 Estimated GFR 58.1 L BUN/Creatinine Ratio 21.0 Glucose 121 H Calcium 8.8 Total Bilirubin 0.6 AST 29 ALT 12 Alkaline Phosphatase 66 Total Protein 6.8 Albumin 3.7 Globulin 3.1 Albumin/Globulin Ratio 1.2 SARS-CoV-2 (PCR) Positive H Assessment & Plan Assessment & Plan narrative: Francisco J Albarran is an 84-year-old male with a past medical history significant for bladder cancer status post ileocecal conduit with urostomy, prostate cancer, thyroid cancer status post thyroidectomy, hypothyroidism, nephrolithiasis, coronary artery disease, hypertension, vertigo, peripheral neuropathy and long- term anticoagulation who presented to the ED with right knee pain after ground level fall found to have sustained a right tibial plateau fracture.? 1. Acute right tibial plateau fracture, present on admission. Active. -Ortho consult ordered -Patient sustained a nonsyncopal slip and fall at his outside steps right knee sustaining an non-displaced tibial plateau fracture. -Consulted orthopedic surgery, Continued pain control and VTE prophylaxis per ortho.? -Continue Tylenol 650 mg every 6 hours for mild pain, Lyrica 150 mg 3 times daily, tramadol 50 mg q 8 hours for moderate pain and oxycodone 5 mg every 3 hours as needed for severe breakthrough pain. -Continue calcium and vitamin D3 supplementation. Patient will need to be treated for osteoporosis as an outpatient per PCP or ortho. -Physical and occupational therapy evaluation and treatment ordered. 2. Right humeral fracture, occurred on June 04, present on admission -Patient will continue to wear a sling. -He was to follow-up with orthopedic surgery around this time. They have been notified of his admission due to 1. 3. Hypertension, chronic, present on admission. Stable. -Patient with well controlled blood pressure, 134/60 upon arrival to the ER. -Continue home dose of amlodipine 5 mg daily, losartan 100 mg daily in the evening, and metoprolol succinate 25 mg daily. 4. Anemia chronic disease, present on admission.? -Initial hemoglobin 10.5 which is higher than previous admissions. 5. Chronic hyponatremia, present on admission.? -Sodium on admission is 133, which is normal for him 6. CAD, present on admission. Stable. -Patient has no chest pain, palpitations or shortness of breath. -Continue home dose of aspirin 81 mg daily and Eliquis 2.5 mg twice daily. -Continue home dose atorvastatin 40 mg daily. 7. Long-term anticoagulation with Eliquis, chronic, present on admission.? Stable. -Unclear reason for anticoagulation. No history of atrial fibrillation, blood clots, PAD/PVD. May be for VTE prophylaxis in the setting of multiple previous cancers now presumed to be in remission? -continue home dose of apixaban 2.5 mg p.o. twice daily 8. Secondary hypothyroidism, chronic, present on admission. Stable. -Patient previously had thyroid cancer status post thyroidectomy. -Continue home dose of levothyroxine 200 mcg daily. 9. Peripheral neuropathy, chronic, present on admission. Stable. -Continued home dose of Lyrica 150 mg 3 times daily. 10. History of bladder and prostate cancer status post ileocecal conduit and urostomy with asymptomatic bacteriuria, chronic, present on admission. Stable. -U/A collected and pending VTE Prophylaxis: Wells risk score 2.5[X] SCD on left Patient is currently anticoagulated on apixaban. Patient is placed into observation as his stay is not expected to exceed 2 midnights. FEN: IV fluids: NS at 100 ml/hour, diet: heart healthy, labs: CBC, C/BMP, liver enzymes, [facility] Orthopedic surgery, care and involvement in the patient's care is appreciated. Dispo: possible discharge to home with HHPT Code status: Full code as discussed with the patient who identifies Yael, his his surrogate and POA. [X] I have utilized all available immediate resources to obtain, update, or review of the patient's current medications COVID-19 COVID-19 status: Positive Result date/Date tested (Pos, Neg/Pending): 06/27/21 Scores Wells' Criteria for PE Clinical signs and symptoms of DVT: No PE is #1 Dx or equally likely: No Heart rate > 100: No Immobilization at least 3 days or surg in previous 4 weeks: Yes History of PE or DVT: No Hemoptysis: No Malignancy w/Treatment within 6 months or palliative: Yes Wells' PE Score total: 2.5 Quality VTE Deep Vein Thrombosis/Pulmonary Embolism Present on Admission: No MIPS - Admit I confirm the patient?s Advance Care Plan is present, Code status is documented, Surrogate decision maker is in patient?s record [If Yes, STOP here]: Yes MIPS - DC The patient has current or prior documentation of left ventricular ejection fraction (LVEF) less than 40%, or moderate or severely depressed left ventricular systolic function.: No
[2021-06-27] MEDS: SODIUM CHLORIDE 0.9% 1,000 ML 100 ML IV (07:41)
[2021-06-27] MEDS: LEVOTHYROXINE 100 MCG TABLET 200 MCG PO (07:43)
[2021-06-27] MEDS: APIXABAN 5 MG TABLET 2.5 MG PO ×2 (09:14→21:37)
[2021-06-27] MEDS: PREGABALIN 75 MG CAPSULE 150 MG PO ×3 (09:14→21:35)
[2021-06-27] MEDS: SENNOSIDES 8.6 MG TABLET PO ×2 (09:14→21:35)
[2021-06-27] MEDS: AMLODIPINE 5 MG TABLET PO (09:14)
[2021-06-27] MEDS: METOPROLOL ER 25 MG TABLET PO (09:14)
[2021-06-27] MEDS: DOCUSATE 100 MG CAPSULE PO ×2 (09:14→21:35)
[2021-06-27 09:21] LABS: Appearance Urine UA CLEAR; Bilirubin Urine UA NEGATIVE (NEGATIVE); Color Urine UA YELLOW; Glucose Urine UA NEGATIVE (Negative); Ketones Urine UA NEGATIVE (NEGATIVE); Leukocyte Esterase Urine UA 1+ (NEGATIVE); Nitrite Urine UA POSITIVE (Negative); Occult Blood Urine UA 1+ (Negative); Protein Urine UA TRACE (Negative); Urobilinogen Urine UA 0.2 E.U./dL (0.2); pH Urine UA 8.5 (4.5-8.0)
[2021-06-27 09:37] LABS: Amorphous Sediment Urine 1+; Bacteria Urine Many (>30); RBC Urine 1-5/HPF (0-5/HPF); Triple Phosphate Crystal Urine Few; WBC Urine 10-30/HPF (0-5/HPF)
[2021-06-27 09:39] LABS: Culture Indicated Urine Specimen Cultured
--- NOTE | 2021-06-27 11:48 | PT.IIE ---
Current Diagnoses Unspecified fracture of shaft of humerus, right arm, initial encounter for closed fracture (06/27/21) Displaced bicondylar fracture of unspecified tibia, initial encounter for closed fracture (06/27/21) Medical History (Last Reviewed 06/27/21 @ 07:35 by SERGIO Butt) Bladder cancer Closed right humeral fracture Coronary artery disease Hypertension Hyponatremia Hypothyroid Kidney stones Prostate cancer Thyroid cancer Physical Therapy Inpatient Evaluation/Re-Eval M1 PT/OT-IP Prior Functional Status Start: 06/27/21 13:36 Freq: NEEDED Status: Active Protocol: Document 06/27/21 11:48 AB (Rec: 06/27/21 13:49 AB [id number]) Medical Review Prior Functional Status Medical History Reviewed Yes Communication able to make needs known Mobility and Gait pt stated that he was modified independent with all mobilities and ambulation using a FWW but then he had a shoulder fx a few weeks ago and then he was using a SPC. Social History Household Members spouse Living Arrangements House Number of Floors (Floors) One Floor Number of Stairs To Enter/Railing? 4 steps B rails to enter from the front Home Environment Built-In Shower Seat Home Equipment Front Wheel Walker,Straight Cane,Raised Toilet Seat w/ Armrests,Hand Held Shower Additional Social History Comment spouse will not be able to provide pt assistance pt stated that he has a walk in tub shower pt has an adjustable bed M2 PT-IP Current Condition Start: 06/27/21 13:36 Freq: NEEDED Status: Active Protocol: Document 06/27/21 11:48 AB (Rec: 06/27/21 13:49 AB [email or web address]) Physical Therapy Current Condition Current Condition Evaluation Date 06/27/21 Treatment Diagnosis R tibial plateau fx; R humeral fx; difficulty in walking Onset Date 06/27/21 M3 PT-IP Subjective Start: 06/27/21 13:36 Freq: NEEDED Status: Active Protocol: Document 06/27/21 11:48 AB (Rec: 06/27/21 13:49 AB [email or web address]) Subjective Physical Therapy Visit Type Type Initial Evaluation Visit Start Time 11:48 Visit Stop Time 12:48 Total Visit Minutes 60 Number of SUPERVISOR AGRICULTURAL EDUCATION Visits 0 Physical Therapy Visit Comments Patient Comments agreeable to do PT Therapy Pain Assessment Pain When Pain Assessed During Mobility Pain Present Pain Present Pain Reported Location Right Shoulder Scale Used pain scale not stated Right Knee Scale Used pain scale not stated M4 PT-IP Mobility and Gait Start: 06/27/21 13:36 Freq: NEEDED Status: Active Protocol: Document 06/27/21 11:48 AB (Rec: 06/27/21 13:49 AB [email or web address]) PT-Bed Mobility Assessment Supine to Sit Supine to Sit Maximum Assistance,1 Person Assistance,2 Person Assistance ,Head of Bed Elevated,Bedrails Scooting Scooting to Edge of Bed Maximum Assistance PT-Transfer Assessment Comments Mobility Comments pt supine in bed with R knee immobilizer on but no sling. nurse stated that pt has wounds on his RUE and sling was taken out due to that. assisted pt with donning of RUE sling prior to mobility. readjusted R knee immobilizer. pt completed supine to sit max A x 1-2 and max cues with HOB elevated and used of bed rial to assist. pt required max A for scooting to EOB. max A for sitting balance with increase posterior trunk lean . completed side board transfer to chair max A and max cues. pt tends to push on RLE to scoot. positioned pt on chair max A x 2 and max cues. NAC assisted pt with lunch setup. PT-Balance Assessment Sitting Balance and Reactions Static Sitting Balance Ability Poor Dynamic Sitting Balance Ability Poor M5 PT-IP Objective Assessments Start: 06/27/21 13:36 Freq: NEEDED Status: Active Protocol: Document 06/27/21 11:48 AB (Rec: 06/27/21 13:49 AB [email or web address]) Orientation Orientation/Cognition Level of Alertness Alert Orientation Name,Place,Situation Safety Awareness Decreased Safety Awareness Memory Description Short Term Impaired Gross Range of Motion Upper Extremity ROM Assessment Right Impaired Impairments shoulder nt due to fx Lower Extremity ROM Assessment Right Impaired Impairments R knee on immobilizer and with fx and NT Strength Lower Extremity Strength Assessment Right Impaired Hip 2+/5 Sensation Assessment Sensation Gross Sensation WNL Muscle Tone Muscle Tone WNL Yes M6 PT-IP Treatment Start: 06/27/21 13:36 Freq: NEEDED Status: Active Protocol: Document 06/27/21 11:48 AB (Rec: 06/27/21 13:49 AB [email or web address]) Physical Therapy Treatment Education Education Provided Weight Bearing Status,Safety M7 PT-IP Assessment and Plan Start: 06/27/21 13:36 Freq: NEEDED Status: Active Protocol: Document 06/27/21 11:48 AB (Rec: 06/27/21 13:49 AB [id number]) PT Summary Assessment and Plan Potential Rehabilitation Potential Fair Status of Condition at Evaluation Evolving Summary Impairments Pain,ROM,Strength,Balance, Coordination,Sensation,Tone, Cognition,Bed Mobility, Transfers,Gait,Activity Tolerance Assessment Summary pt requiring max A x 2 with mobility and recommendign fanny lift transfer with nursing care at this time. pt will require SNF rehab to improve strength and mobility. Goals Bed Mobility Goal Moderate Assistance Transfer Goal Maximal Assistance,Slide Board Other Goals sit to stand mod A using hemiwalker/quad cane Days to Meet Goals 10 Frequency of Treatment Frequency Of Treatment Once a Day Treatment Plan Physical Therapy Treatment Plan Bed Mobility Training,Transfer Training,Gait Training, Therapeutic Exercise,Balance Retraining,Discharge Planning, Hot or Cold Pack,Neuromuscular Re-ed,Coordination Retraining ,Manual Therapy Precautions Other Precautions RUE: sling RLE: knee immobilizer Covid precautions Weight Bearing Status Weight Bearing Status Non-Weight Bearing Allowed Weight Bearing Amount (enter % RUE/LE NWB or #) (%) Recommendations To Nursing Amount of Assist Needed Mechanical Lift Discharge Recommendations PT Discharge Recommendations SNF Rehab Transportation Needs at Discharge Wheelchair/Cabulance,Stretcher /Ambulance
--- NOTE | 2021-06-27 14:40 | PC.NURSE ---
1440: Pt second covid swab also positive. He remains asymptomatic Notified Dr Rothman, no new orders.
[2021-06-27 14:41] LABS: COVID19 -Nasal RAPID POSITIVE (Negative)
[2021-06-27] MEDS: ACETAMINOPHEN 325 MG TABLET 650 MG PO (17:22)
[2021-06-27] MEDS: LOSARTAN 50 MG TABLET 100 MG PO (17:22)
[2021-06-27] MEDS: ATORVASTATIN 20 MG TABLET 40 MG PO (21:35)
[2021-06-28 05:35] LABS: Add Manual Diff / Slide Review NO; Basophils Absolute Auto 0 /uL (0-100); Basophils Percent Auto 0.5 % (0-2); Eosinophils Absolute Auto 400 /uL (0-450); Eosinophils Percent Auto 4.4 % (2-4); Hematocrit 28.3 % (41-53); Hemoglobin 9.3 g/dL (13.5-17.5); Lymphocytes Absolute Auto 1100 /uL (1100-4500); Lymphocytes Percent Auto 13.5 % (25-40); Mean Corpuscular HGB Conc 32.8 % (30-36); Mean Corpuscular Hemoglobin 27.1 PG (26-34); Mean Corpuscular Volume 82.6 fL (80-100); Monocytes Absolute Auto 1200 /uL (0-900); Monocytes Percent Auto 13.9 % (3-14); Neutrophils Absolute Auto 5700 /uL (1500-7000); Neutrophils Percent Auto 67.7 % (50-75); Platelet Count 201 X10^3/uL (150-400); Red Blood Cell Count 3.43 X10^6/uL (4.5-5.9); Red Cell Distribution Width 15.4 % (11.6-14.8); White Blood Cell Count 8.4 X10^3/uL (4.5-11.0)
[2021-06-28 05:58] LABS: Alanine Aminotransferase 9 IU/L (<50); Albumin 3.1 g/dL (3.5-5.0); Albumin Globulin Ratio 1.1 (1.0-2.8); Alkaline Phosphatase 53 U/L (38-126); Aspartate Aminotransferase 26 IU/L (17-59); BUN Creatinine Ratio 20.4 (6-22); Bilirubin Total 0.5 mg/dL (0.2-1.3); Bilirubin Unconjugated 0.5 mg/dL (0.0-1.1); Blood Urea Nitrogen 23 mg/dL (9-20); Calcium 8.4 mg/dL (8.4-10.2); Carbon Dioxide 30 mmol/L (22-32); Chloride 97 mmol/L (98-107); Estimated Glomerular Filt Rate > 60.0 mL/min (>60); Globulin 2.9 g/dL (1.7-4.1); Glucose 101 mg/dL (80-110); HEMOLYSIS < 15 (0-50); Magnesium 1.8 mg/dL (1.6-2.3); Potassium 4.1 mmol/L (3.4-5.1); Sodium 132 mmol/L (137-145)
[2021-06-28] MEDS: ACETAMINOPHEN 325 MG TABLET 650 MG PO ×2 (06:00→17:59)
[2021-06-28] MEDS: LEVOTHYROXINE 100 MCG TABLET 200 MCG PO (06:01)
[2021-06-28 07:00] VITALS: O2SAT 99
--- NOTE | 2021-06-28 08:25 | PC.NURSE ---
Addendum entered by Lucia Yin R.N. 06/28/21 18:41: Pt continues to require 2person assist with overhead lift to get to BSC. Immonbilizer to RLE, nonweight bearing. Sling in place for RUE. Addendum entered by Lucia Yin R.N. 06/28/21 17:02: Update to Yael and to Daughter, both would like to speak with CM, Vikki is unable at present. Updated based on her note. Placement continues to be an issue. Family is considering taking patient back home. Discussion about increased care needs. Will address in AM. Pain control adequate with routine APAP. Pt is needing sling, and over head lift for transfers to BSC, OOB. D/t Nonweight bearing status of RLE and sling to RUE. Pt reports a few falls at home with assisting to ambulate. Pt frequently asks about cost of care, increased anxiety r/t increased cost of staying in Hospital. Reassured. Original Note: Am shift Yael, called for update. Updated to POC for PT and pain control, increasing mobility, and a plan for safe DC, SNF vs Home. appears very overwhelmed with these options, reassured that it is only 0745, once the Dr has rounded on him today and he has had time to work with PT there would be a more solid plan I guess I will have to call back then Pt is alert x3 in room, sling in place to R arm, immobilizer in place to RLE. Reports sleeping and having minimal pain with movement Scheduled APAP, declines further pain control. Call light in reach. Continues on RA Spo2 99%
--- NOTE | 2021-06-28 10:21 | CM.DPNOTE ---
Faxed snf referral per Vikki to all facilities accepting Covid+ patients. Received conf. Neyda Carey CM Assist.
[2021-06-28] MEDS: PREGABALIN 75 MG CAPSULE 150 MG PO ×3 (10:23→20:30)
[2021-06-28] MEDS: DOCUSATE 100 MG CAPSULE PO (10:23)
[2021-06-28] MEDS: APIXABAN 5 MG TABLET PO ×2 (10:24→20:26)
[2021-06-28] MEDS: METOPROLOL ER 25 MG TABLET PO (10:24)
[2021-06-28 10:51] VITALS: BP 105/54; PULSE 69; RESP 16; O2SAT 99
--- NOTE | 2021-06-28 11:37 | PM.CN ---
History of Present Illness Consult details Chief complaint: Fall Narrative: 85 yo male well-known to our orthopedic service; had a left total hip arthroplasty by Dr Jaylene Lepe on 11/03/2019. More recently has been evaluated by Dr Sim Tierney after a fall in May 2021 at which time he sustained a right humeral neck fracture. This was being treated non-operatively, and he continues to wear a sling. He was walking up some stairs on 06/27/2021 and lost his balance and fell again, resulting in a right non-displaced tibial plateau fracture. Meds Home Medications and Allergies Home Medications Medication Instructions Recorded Confirmed Type aspirin 81 mg tablet,delayed 1 tab PO DAILY 11/07/17 10/31/19 History release atorvastatin 40 mg tablet 1 tab PO BEDTIME 11/07/17 10/31/19 History docusate calcium 240 mg capsule 1 cap PO BEDTIME 11/07/17 10/31/19 History losartan 50 mg tablet 100 mg PO QPM 11/07/17 10/31/19 History amlodipine 10 mg tablet 1 tab PO DAILY 06/11/18 10/31/19 History diphenhydramine 25 1 tab PO BEDTIME PRN 06/11/18 10/31/19 History mg-acetaminophen 500 mg tablet (Acetaminophen PM) docusate sodium 100 mg tablet 100 mg PO BID 06/11/18 10/31/19 History meclizine 25 mg tablet 25 mg PO Q8H PRN 06/11/18 10/31/19 History metoprolol succinate 25 mg 1 tab PO DAILY 06/11/18 10/31/19 History tablet,extended release 24 hr sennosides 8.6 mg tablet (senna) 8.6 mg PO BID 06/11/18 10/31/19 History levothyroxine 200 mcg tablet 200 mcg PO 0700 08/09/18 10/31/19 History apixaban 5 mg tablet (Eliquis) 5 mg PO DAILY 10/31/19 10/31/19 History fluticasone propionate 50 1 spray INTRANASAL BID 10/31/19 10/31/19 History mcg/actuation nasal spray,suspension (Flonase Allergy Relief) [id number] 200 mcg-vit K 100 1 cap PO DAILY 10/31/19 10/31/19 History mcg-lycop 500 [id number] capsule (Daily Multivitamin) acetaminophen 325 mg tablet 975 mg PO TID #90 tab 11/05/19 Rx bisacodyl 10 mg rectal suppository 10 mg ND DAILY PRN #10 ea 11/05/19 Rx calcium carbonate 500 mg-vitamin 1 ea PO BIDWM #60 tab 11/05/19 Rx D3 5 mcg (200 unit) tablet (Oyster Shell Calcium-Vitamin D3) ferrous gluconate 324 mg (38 mg 324 mg PO DAILY #30 tab 11/05/19 Rx iron) tablet oxycodone 5 mg tablet 5 mg PO Q3HR PRN #15 tab 11/05/19 Rx polyethylene glycol 3350 17 gram 17 gm PO DAILY PRN #30 ea 11/05/19 Rx oral powder packet pregabalin 150 mg capsule 1 cap PO TID #10 cap 11/05/19 Rx sodium chloride 1 g PO DAILY 11/05/19 11/05/19 History Allergies Allergy/AdvReac Type Severity Reaction Status Date / Time No Known Drug Allergies Allergy Verified 03/26/20 14:22 Exam Vital Signs (past 8 hours): - 06/28/21 10:51 Pulse Rate 69 Respiratory Rate 16 Blood Pressure 105/54 L Pulse Oximetry 99 Oxygen Delivery Method Room Air Oxygen Flow Rate 0 Narrative Exam Narrative: Leg immobilizer in place on RLE. 08/15 DF, PF, EHL. Objective Labs Result Diagrams: 06/28/21 05:05 06/28/21 05:05 Labs: Laboratory Results - last 24 hr 06/27/21 06/28/21 06/28/21 14:20 05:05 05:05 WBC 8.4 RBC 3.43 L Hgb 9.3 L Hct 28.3 L MCV 82.6 MCH 27.1 MCHC 32.8 RDW 15.4 H Plt Count 201 Neut % (Auto) 67.7 Lymph % (Auto) 13.5 L [place] % (Auto) 13.9 Eos % (Auto) 4.4 H Baso % (Auto) 0.5 Neut # (Auto) 5700 Lymph # (Auto) 1100 [place] # (Auto) 1200 H Eos # (Auto) 400 Baso # (Auto) 0 Sodium 132 L Potassium 4.1 Chloride 97 L Carbon Dioxide 30 BUN 23 H Creatinine 1.13 Estimated GFR > 60.0 BUN/Creatinine Ratio 20.4 Glucose 101 Calcium 8.4 Magnesium 1.8 Total Bilirubin Conjugated Bilirubin Unconjugated Bilirubin AST ALT Alkaline Phosphatase Total Protein Albumin Globulin Albumin/Globulin Ratio SARS-CoV-2 (PCR) Positive H 06/28/21 05:05 WBC RBC Hgb Hct MCV MCH MCHC RDW Plt Count Neut % (Auto) Lymph % (Auto) [place] % (Auto) Eos % (Auto) Baso % (Auto) Neut # (Auto) Lymph # (Auto) [place] # (Auto) Eos # (Auto) Baso # (Auto) Sodium Potassium Chloride Carbon Dioxide BUN Creatinine Estimated GFR BUN/Creatinine Ratio Glucose Calcium Magnesium Total Bilirubin 0.5 Conjugated Bilirubin 0.0 Unconjugated Bilirubin 0.5 AST 26 ALT 9 Alkaline Phosphatase 53 Total Protein 6.0 L Albumin 3.1 L Globulin 2.9 Albumin/Globulin Ratio 1.1 SARS-CoV-2 (PCR) FOR[facility]LY [facility] Medical History Bladder cancer Closed right humeral fracture Coronary artery disease Hypertension Hyponatremia Hypothyroid Kidney stones Prostate cancer Thyroid cancer Surgical History H/O colectomy H/O thyroidectomy History of appendectomy History of urostomy S/P hip replacement Family History Father Alcoholism Mother Alcoholism Social History household members: spouse Tobacco & Substance Use Smoking Status: Former smoker alcohol intake: former substance use type: does not use Assessment & Plan Assessment and plan (1) Closed fracture of tibial plateau: Status: Acute Plan: No operative treatment indicated at this time. Non-weight bearing to RLE, keep knee immobilizer in place at all times, may have off to shower. Follow up in orthopedic clinic in 2 weeks for repeat imaging, will put send pt for locking knee brace at that time. (2) Closed right humeral fracture: Status: Acute Plan: Recent appt w/ Dr Tierney on 06/24/2021. Next appt scheduled on 07/22/2021 @ 1:50 pm at [facility] in [place]. Plan Pain management and VTE prophylaxis per hospitalist service. Please reconsult orthopedic surgery as needed during hospital stay; otherwise, will follow up as above. Time Spent With Patient Critical Care time: I spent a total of [] minutes of critical care time on this patient's care today; this time is exclusive of procedural time.
--- NOTE | 2021-06-28 12:05 | PT.IPTN ---
Current Diagnoses Unspecified fracture of shaft of humerus, right arm, initial encounter for closed fracture (06/27/21) Displaced bicondylar fracture of unspecified tibia, initial encounter for closed fracture (06/27/21) Physical Therapy Treatment Note M2 PT-IP Current Condition Start: 06/27/21 13:36 Freq: NEEDED Status: Active Protocol: Document 06/27/21 11:48 AB (Rec: 06/27/21 13:49 AB [id number]) Physical Therapy Current Condition Current Condition Evaluation Date 06/27/21 Treatment Diagnosis R tibial plateau fx; R humeral fx; difficulty in walking Onset Date 06/27/21 M3 PT-IP Subjective Start: 06/27/21 13:36 Freq: NEEDED Status: Active Protocol: Document 06/28/21 11:49 KS (Rec: 06/28/21 15:18 KS [id number]) Subjective Physical Therapy Visit Type Type Treatment Note Visit Start Time 11:49 Visit Stop Time 12:05 Total Visit Minutes 16 Number of BELL HOLE DIGGER Visits 1 Physical Therapy Visit Comments Patient Comments agreeable to do PT M4 PT-IP Mobility and Gait Start: 06/27/21 13:36 Freq: NEEDED Status: Active Protocol: Document 06/28/21 11:49 KS (Rec: 06/28/21 15:18 KS [id number]) PT-Bed Mobility Assessment Supine to Sit Supine to Sit Maximum Assistance,1 Person Assistance,2 Person Assistance ,Head of Bed Elevated,Bedrails Scooting Scooting to Edge of Bed Maximum Assistance PT-Transfer Assessment Transfers Transfer Destination Bedside Commode Transfer Technique Squat Pivot Transfer Ability Level of Assist Maximum Assistance,2 Person Assistance Comments Mobility Comments Pt in bed upon arrival and RN in room. Pt wanting to get on BSC. Max A x1-2 for sup<>sit and scooting EOB. Pt w/ posterior lean and needing Max A for seated balance. Completed squat pivot transfer from bed to bedside commode Max A x2 max cues. Pt refused further sit<>stands or transfers following BSC and preferred to ann-marie w/ nursing staff to chair. Pt left w/ RN. PT-Balance Assessment Sitting Balance and Reactions Static Sitting Balance Ability Poor Dynamic Sitting Balance Ability Poor M5 PT-IP Objective Assessments Start: 06/27/21 13:36 Freq: NEEDED Status: Active Protocol: Document 06/27/21 11:48 AB (Rec: 03/17/22 13:49 AB [id number]) Orientation Orientation/Cognition Level of Alertness Alert Orientation Name,Place,Situation Safety Awareness Decreased Safety Awareness Memory Description Short Term Impaired Gross Range of Motion Upper Extremity ROM Assessment Right Impaired Impairments shoulder nt due to fx Lower Extremity ROM Assessment Right Impaired Impairments R knee on immobilizer and with fx and NT Strength Lower Extremity Strength Assessment Right Impaired Hip 2+/5 Sensation Assessment Sensation Gross Sensation WNL Muscle Tone Muscle Tone WNL Yes M6 PT-IP Treatment Start: 06/27/21 13:36 Freq: NEEDED Status: Active Protocol: Document 06/28/21 11:49 KS (Rec: 06/28/21 15:18 KS [id number]) Physical Therapy Treatment Education Education Provided Weight Bearing Status,Safety M7 PT-IP Assessment and Plan Start: 06/27/21 13:36 Freq: NEEDED Status: Active Protocol: Document 06/28/21 11:49 KS (Rec: 06/28/21 15:18 KS [id number]) PT Summary Assessment and Plan Potential Rehabilitation Potential Fair Status of Condition at Evaluation Evolving Summary Impairments Pain,ROM,Strength,Balance, Coordination,Sensation,Tone, Cognition,Bed Mobility, Transfers,Gait,Activity Tolerance Assessment Summary Pt still requiring Max A x2 for transfers and Max A for seated balance as well as low tolerance for activity. Ann-Marie lift for transfers w/ nursing staff. Pt will require SNF to improve strength and functional mobility. Goals Bed Mobility Goal Moderate Assistance Transfer Goal Maximal Assistance,Slide Board Other Goals sit to stand mod A using hemiwalker/quad cane Days to Meet Goals 10 Frequency of Treatment Frequency Of Treatment Once a Day Treatment Plan Physical Therapy Treatment Plan Bed Mobility Training,Transfer Training,Gait Training, Therapeutic Exercise,Balance Retraining,Discharge Planning, Hot or Cold Pack,Neuromuscular Re-ed,Coordination Retraining ,Manual Therapy Precautions Other Precautions RUE: sling RLE: knee immobilizer Covid precautions Weight Bearing Status Weight Bearing Status Non-Weight Bearing Allowed Weight Bearing Amount (enter % RUE/LE NWB or #) (%) Recommendations To Nursing Amount of Assist Needed Mechanical Lift Discharge Recommendations PT Discharge Recommendations SNF Rehab Transportation Needs at Discharge Wheelchair/Cabulance,Stretcher /Ambulance
--- NOTE | 2021-06-28 13:56 | P.PN_ITS ---
Subjective Subjective Date Patient Seen: 06/28/21 Interval history: 85-year-old male admitted to the hospital following a right tibial plateau fracture. He suffered a right humerus fracture previously. The patient has had multiple falls. Now with to fractures. Currently we are awaiting placement in his frequent fall and injuries. Patient denies any pain as long as he is not moving. Exam Vital Signs (past 8 hours): - 06/28/21 07:00 06/28/21 10:51 Pulse Rate 69 Respiratory Rate 16 Blood Pressure 105/54 L Pulse Oximetry 99 99 Oxygen Delivery Method Room Air Oxygen Flow Rate 0 Narrative Exam Narrative: Pleasant male sitting in a chair eating lunch Resp Other: Lungs clear to auscultation Cardio Other: Cardiac exam: Regular rate and rhythm normal S1-S2 with a 2/6 systolic ejection murmur GI Other: Abdomen: Soft nontender nondistended Extrem Other: Extremities: Right arm in a sling, right leg in a brace Objective Labs Result Diagrams: 06/28/21 05:05 06/28/21 05:05 Labs: Laboratory Results - last 24 hr 06/27/21 06/28/21 06/28/21 14:20 05:05 05:05 WBC 8.4 RBC 3.43 L Hgb 9.3 L Hct 28.3 L MCV 82.6 MCH 27.1 MCHC 32.8 RDW 15.4 H Plt Count 201 Neut % (Auto) 67.7 Lymph % (Auto) 13.[address] [place] % (Auto) 13.9 Eos % (Auto) 4.4 H Baso % (Auto) 0.5 Neut # (Auto) 5700 Lymph # (Auto) 1100 [place] # (Auto) 1200 H Eos # (Auto) 400 Baso # (Auto) 0 Sodium 132 L Potassium 4.1 Chloride 97 L Carbon Dioxide 30 BUN 23 H Creatinine 1.13 Estimated GFR > 60.0 BUN/Creatinine Ratio 20.4 Glucose 101 Calcium 8.4 Magnesium 1.8 Total Bilirubin Conjugated Bilirubin Unconjugated Bilirubin AST ALT Alkaline Phosphatase Total Protein Albumin Globulin Albumin/Globulin Ratio SARS-CoV-2 (PCR) Positive H 06/28/21 05:05 WBC RBC Hgb Hct MCV MCH MCHC RDW Plt Count Neut % (Auto) Lymph % (Auto) [place] % (Auto) Eos % (Auto) Baso % (Auto) Neut # (Auto) Lymph # (Auto) [place] # (Auto) Eos # (Auto) Baso # (Auto) Sodium Potassium Chloride Carbon Dioxide BUN Creatinine Estimated GFR BUN/Creatinine Ratio Glucose Calcium Magnesium Total Bilirubin 0.5 Conjugated Bilirubin 0.0 Unconjugated Bilirubin 0.5 AST 26 ALT 9 Alkaline Phosphatase 53 Total Protein 6.0 L Albumin 3.1 L Globulin 2.9 Albumin/Globulin Ratio 1.1 SARS-CoV-2 (PCR) FORMERLY [facility] Medical History Bladder cancer Closed right humeral fracture Coronary artery disease Hypertension Hyponatremia Hypothyroid Kidney stones Prostate cancer Thyroid cancer Surgical History H/O colectomy H/O thyroidectomy History of appendectomy History of urostomy S/P hip replacement Family History Father Alcoholism Mother Alcoholism Social History household members: spouse Smoking Status: Former smoker alcohol intake: former substance use type: does not use Assessment & Plan Assessment & Plan narrative: Francisco J Albarran is an 84-year-old male with a past medical history significant for bladder cancer status post ileocecal conduit with urostomy, prostate cancer, thyroid cancer status post thyroidectomy, hypothyroidism, nephrolithiasis, coronary artery disease, hypertension, vertigo, peripheral neuropathy and long- term anticoagulation who presented to the ED with right knee pain after ground level fall found to have sustained? a right tibial plateau fracture.? 1. Acute right tibial plateau fracture, present on admission. Active. -Ortho consult ordered -Patient sustained a nonsyncopal slip and fall at his outside steps right knee sustaining an non-displaced tibial plateau fracture. -Consulted orthopedic surgery,? Continued pain control and VTE prophylaxis per ortho.? -Continue Tylenol 650 mg every 6 hours for mild pain, Lyrica 150 mg 3 times daily, tramadol 50 mg q 8 hours for moderate pain and oxycodone 5 mg every 3 hours as needed for severe breakthrough pain. -Continue calcium and vitamin D3 supplementation. Patient will need to be treated for osteoporosis as an outpatient per PCP or ortho. -Physical and occupational therapy evaluation and treatment ordered. -patient is nonweightbearing on the right lower extremity -he will need follow-up with orthopedics in 2 weeks for repeat imaging 2. Right humeral fracture, occurred on June 04, present on admission -Patient will continue to wear a sling. -He was to follow-up with orthopedic surgery around this time.? They have been notified of his admission due to 1. 3. Hypertension, chronic, present on admission. Stable. -Patient with well controlled blood pressure, 134/60 upon arrival to the ER. -Continue home dose of amlodipine 5 mg daily, losartan 100 mg daily in the evening, and metoprolol succinate 25 mg daily. 4. Anemia chronic disease, present on admission.? -Initial hemoglobin 10.5 which is higher than previous admissions. 5. Chronic hyponatremia, present on admission.? -Sodium on admission is 133, which is normal for him 6. CAD, present on admission. Stable. -Patient has no chest pain, palpitations or shortness of breath. -Continue home dose of aspirin 81 mg daily and Eliquis 2.5 mg twice daily. -Continue home dose atorvastatin 40 mg daily. 7. Long-term anticoagulation with Eliquis, chronic, present on admission.? Stable. -Unclear reason for anticoagulation. No history of atrial fibrillation, blood clots, PAD/PVD. May be for VTE prophylaxis in the setting of multiple previous cancers now presumed to be in remission? -continue home dose of apixaban 2.5 mg p.o. twice daily 8. Secondary hypothyroidism, chronic, present on admission. Stable. -Patient previously had thyroid cancer status post thyroidectomy. -Continue home dose of levothyroxine 200 mcg daily. 9. Peripheral neuropathy, chronic, present on admission. Stable. -Continued home dose of Lyrica 150 mg 3 times daily. 10. History of bladder and prostate cancer status post ileocecal conduit and urostomy with asymptomatic bacteriuria, chronic, present on admission. Stable. -U/A collected and pending 11. Disposition * Waiting placed, patient is unsafe to return home given his frequent fall and injuries ?VTE Prophylaxis: Wells risk score 2.5[X] SCD on left Patient is currently anticoagulated on apixaban. Time Spent With Patient Critical Care time: I spent a total of [] minutes of critical care time on this patient's care today; this time is exclusive of procedural time. Quality VTE Deep Vein Thrombosis/Pulmonary Embolism Present on Admission: No
--- NOTE | 2021-06-28 16:23 | CM.IDA ---
Initial DCP Assessment Note Pt is an 85 yo male, resident of [place], arrives after a fall, hx of multiple falls, recent shoulder fx, arm in a sling and now w/inoperable tib/fib fx, in addition patient found to be COVID+ confirmed by two tests 3.. Patient remains observation at this time. Sent to EHR today for review but no determination as of yet. PCP: Rajeev Tanner Payer: [facility]/ [facility] Reviewed chart, pt discussed in multidisciplinary rounds this morning. SNF recommended upon DC to recover from these injuries, however, barriers so far are: -Patient observation, spouse states she will not pay privately (possibly COVID waiver?) -Patient is COVID+ limiting SNF options -Attempted local SNF options and received feedback that they cannot accept a patient w/a newly diagnosed COVID infection Reviewed above w/ Dr Rothman, then had lengthy conversations w/both patient (by phone) and spouse Yael who both concluded patient could not return home unless increased care discussed w/dtr Yael. Discussed C19+ facilities available, w/patient and spouse and spouse agreeable to faxed referrals but hesitant about patient discharging out of the region. These referrals faxed by AGATA Faye this morning. Placed call to [facility]- they do not have beds until next Thursday, according to Claudette. placed call to [facility] in [place], admissions team indicated they had not reviewed but would do so before the weekend and call with an answer. Meanwhile, attempted contact w/dtr Yael, played phone tag and ran out of time to discuss DCP before end of shift. F/u needed. Either DC to accepting COVID+ facility on COVID waiver (?) to recover from multiple injuries/fractures vs home w/family and HH (resumption of [facility] ?) PASRR needed if SNF. JUAN Cardenas Discharge Planning/Care Management CM Discharge Assessment Start: 06/28/21 16:19 Freq: Status: Active Protocol: Document 06/28/21 16:20 NADYA (Rec: 06/28/21 16:23 NADYA [id number]) Discharge Planning Assessment Assigned Block Splitter Operator JUAN Field DPOA/Assigned Designee Name Yael Albarran, spouse Contact Information [phone] home [phone] cell Advance Directives? No Advance Directives on File No History Provided By Patient,Family Member, Significant Other,Medical Record Prior Living Arrangements House Household Members spouse Type of transporation used prior to Drives own vehicle admit Independent with ADL's Yes: Mod Indp before these injuries Is patient alert and oriented? Yes Needs Assistance With Home Chores / Shopping Comment has a FWW and Cane at home but doesn't use them regularly. Patient endorses that he keeps it in his car Patient/Family Preference Long Term Facility Barriers to Discharge Yes Comment Shoulder fx, tib/fib fx, C19+, obs, spouse cannot tolerate care at home. Need to discuss w/family Discharge Plan Long Term Facility Transportation Arrangement Spouse and/or family to provide transport if return home. Likely w/c if SNF Referrals Initiated Home Health If patient plan is home with home health Yes : Has signed face to face form been completed? If patient plan is SNF: Has PASSR been No completed? Medicare Choice List Provided No SNF/HH Preference C19+ SNF List
[2021-06-28] MEDS: LOSARTAN 50 MG TABLET 100 MG PO (17:59)
[2021-06-28 19:00] VITALS: BP 106/59; PULSE 65; RESP 16; TEMP 37; O2SAT 95
[2021-06-28] MEDS: ATORVASTATIN 20 MG TABLET 40 MG PO (20:26)
[2021-06-28] MEDS: SENNOSIDES 8.6 MG TABLET PO (20:27)
[2021-06-28] MEDS: TRAMADOL 50 MG TABLET PO (20:27)
--- NOTE | 2021-06-28 21:39 | PC.NURSE ---
Addendum entered by Sharyn Preston R.N. 06/29/21 06:35: Patient awake and medicated with routinely scheduled Acetaminophen. Patient states that pain is well controlled. Urostomy stoma remains pink and urine emptied. Good CMS to RUE and RLE. Sling to RUE and Immobilizer intact to RLE. RLE continues with 2+ edema. RLE elevated on pillows. Patient repositioned to L side utilizing the Teressa bed. Addendum entered by Sharyn Preston R.N. 06/29/21 01:24: Ortho checks remain stable to RUE and RLE with good CMS. RUE remains in sling and RLE in immobilizer. Addendum entered by Sharyn Preston R.N. 06/29/21 01:16: Patient agreed to repositioning using Teressa Bed. RLE elevated on pillows. Patient states that pain is 0/10. Routinely scheduled Acetaminophen given. Urostomy emptied for 250 cc yellow, foul smelling urine. Urine culture pending. Original Note: Patient rates RLE pain at 5/10. Medicated with Tramadol. Patient encouraged to C,D.B q1h and rational explained. SCD applied to LLE. Dr. Linn notified of occluded IV line and orders received to leave IV out, as patient is not on telemetry, and no IV medications with stable vital signs. CMS remains stable to RUE in sling and RLE in immobilizer. RLE with 2+ ankle edema.
[2021-06-28 21:40] VITALS: O2SAT 93
[2021-06-29] VITALS (12 sets, daily range): BP systolic 98–108; BP diastolic 52–58; PULSE 60–73; RESP 14–17; TEMP 36.6–36.7; O2SAT 93–95
[2021-06-29] MEDS: ACETAMINOPHEN 325 MG TABLET 650 MG PO ×4 (01:05→13:57)
[2021-06-29] MEDS: LEVOTHYROXINE 100 MCG TABLET 200 MCG PO (06:13)
--- NOTE | 2021-06-29 07:45 | P.PN_ITS ---
Subjective Subjective Date Patient Seen: 06/29/21 Interval history: He is seen in his room here to follow up his Hypertension, Atrial Fibrillation, Tibial Plateau Fracture and E.coli UTI. The blood test yesterday included a white blood count of 8.4 with a hemoglobin of 9.3, and normal BMP and a positive COVID screening test. He has no COVID symptoms. His blood pressures has been as low as 90/50s. His Norvasc dose will be held and his metoprolol dose will be continued. The losartan dose will be cut in half to 50 mg. When asked about his injury he tells me a few of the details and a long, winding story that gets quite twisted up. Essentially he was walking on some steps when he was too weak to make it all the way up and so his ?boosted him? but pushed on his already broken right arm. This is when he fell and fractured the tibial plateau. The shoulder fracture was actually 2 months ago. He is quite confused. 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 He lives in [place] with his . Exam Vital Signs (past 8 hours): - 06/29/21 01:00 06/29/21 06:48 Temperature 98.1 F Pulse Rate 68 63 Respiratory Rate 14 16 Blood Pressure 98/57 L 105/58 L Pulse Oximetry 93 95 Oxygen Delivery Method Room Air Oxygen Flow Rate 0 Narrative Exam Narrative: He is alert and oriented to his name. No apparent distress. Heart: RRR without murmur Lungs: CTAB Extremities: Trace right leg edema, right knee brace, Right shoulder sling No left ankle edema Objective Labs Result Diagrams: 06/28/21 05:05 06/28/21 05:05 [facility] Medical History Bladder cancer Closed right humeral fracture Coronary artery disease Hypertension Hyponatremia Hypothyroid Kidney stones Prostate cancer Thyroid cancer Surgical History H/O colectomy H/O thyroidectomy History of appendectomy History of urostomy S/P hip replacement Family History Father Alcoholism Mother Alcoholism Social History household members: spouse Smoking Status: Former smoker alcohol intake: former substance use type: does not use Assessment & Plan Assessment & Plan narrative: Francisco J Albarran is an 84-year-old male with a past medical history significant for bladder cancer status post ileocecal conduit with urostomy, prostate cancer, thyroid cancer status post thyroidectomy, hypothyroidism, nephrolithiasis, coronary artery disease, hypertension, vertigo, peripheral neuropathy and long- term anticoagulation who presented to the ED with right knee pain after a ground level fall found to have sustained? a right tibial plateau fracture.? 1. Acute right tibial plateau fracture, present on admission. Active. -Ortho consulted and outpatient conservative management will be provided -Patient sustained a nonsyncopal slip and fall at his outside steps onto the right knee sustaining a non-displaced tibial plateau fracture. -Continued pain control and VTE prophylaxis per ortho.? -Continue Tylenol 650 mg every 6 hours for mild pain, Lyrica 150 mg 3 times daily, tramadol 50 mg q 8 hours for moderate pain and oxycodone 5 mg every 3 hours as needed for severe breakthrough pain. -Continue calcium and vitamin D3 supplementation. Patient will need to be treated for osteoporosis as an outpatient per PCP or ortho. -Physical and occupational therapy evaluation and treatment ordered. -patient is nonweightbearing on the right lower extremity for up to 6 weeks -he will need follow-up with orthopedics in 2 weeks for repeat imaging 2. Right humeral fracture, occurred previous to this knee injury on June 04, present on admission -Patient will continue to wear a sling. -He was to follow-up with orthopedic surgery around this time.? They have been notified of his admission due to 1. 3. Hypertension, chronic, present on admission. Stable. -Patient with well controlled blood pressure, 134/60 upon arrival to the ER. -Continue home dose of amlodipine 5 mg daily, losartan 100 mg daily in the evening, and metoprolol succinate 25 mg daily. -with hypotension of 90s/50s on 06/28 the losartan dose was decreased to 50 mg and the amlodipine was stopped. Continue metoprolol. 4. Anemia chronic disease, present on admission.? -Initial hemoglobin 10.5 which is higher than previous admissions. -06/28 hemoglobin 9.3, follow 5. Chronic hyponatremia, present on admission.? -Sodium on admission is 133, and follow-up 132, which is normal for him 6. CAD, present on admission. Stable. -Patient has no chest pain, palpitations or shortness of breath. -Continue home dose of aspirin 81 mg daily and Eliquis 2.5 mg twice daily. -Continue home dose atorvastatin 40 mg daily. 7. Long-term anticoagulation with Eliquis, chronic, present on admission.? Stable. -Unclear reason for anticoagulation. No history of atrial fibrillation, blood clots, PAD/PVD. May be for VTE prophylaxis in the setting of multiple previous cancers now presumed to be in remission? -continue home dose of apixaban 2.5 mg p.o. twice daily 8. Secondary hypothyroidism, chronic, present on admission. Stable. -Patient previously had thyroid cancer status post thyroidectomy. -Continue home dose of levothyroxine 200 mcg daily. 9. Peripheral neuropathy, chronic, present on admission. Stable. -Continued home dose of Lyrica 150 mg 3 times daily. 10. History of bladder and prostate cancer status post ileocecal conduit and urostomy with asymptomatic bacteriuria, chronic, present on admission. Stable. -Due to falls a UC was done. -E.coli in 06/27 UC - treat with 5 days of Augmentin -1st dose 06/29, last dose 07/04. 11. Disposition * Waiting placement, patient is unsafe to return home given his frequent fall and injuries * family prefer [facility] or [facility] on Saturday 07/01 * ?VTE Prophylaxis: Wells risk score 2.5[X] SCD on left Patient is currently anticoagulated on apixaban. Time Spent With Patient Critical Care time: I spent a total of [] minutes of critical care time on this patient's care today; this time is exclusive of procedural time. Quality VTE Deep Vein Thrombosis/Pulmonary Embolism Present on Admission: No
[2021-06-29] MEDS: METOPROLOL ER 25 MG TABLET PO (08:29)
[2021-06-29] MEDS: APIXABAN 5 MG TABLET PO ×2 (08:29→21:11)
[2021-06-29] MEDS: PREGABALIN 75 MG CAPSULE 150 MG PO ×3 (08:29→21:11)
[2021-06-29] MEDS: DOCUSATE 100 MG CAPSULE PO ×2 (08:30→21:11)
--- NOTE | 2021-06-29 08:58 | P.PN_ITS ---
Subjective Subjective Date Patient Seen: 06/29/21 Time Patient Seen: 08:58 Interval history: No new complaints this morning Exam Vital Signs (past 8 hours): - 06/29/21 01:00 06/29/21 06:48 06/29/21 07:00 Temperature 98.1 F Pulse Rate 68 63 Respiratory Rate 14 16 Blood Pressure 98/57 L 105/58 L Pulse Oximetry 93 95 95 06/29/21 08:56 Temperature Pulse Rate Respiratory Rate Blood Pressure Pulse Oximetry 93 Oxygen Delivery Method Room Air Oxygen Flow Rate 0 Narrative Exam Narrative: 85-year-old male resting comfortably in bed in no apparent distress. Knee immobilizer in place Objective Labs Result Diagrams: 06/28/21 05:05 06/28/21 05:05 [facility] Medical History Bladder cancer Closed right humeral fracture Coronary artery disease Hypertension Hyponatremia Hypothyroid Kidney stones Prostate cancer Thyroid cancer Surgical History H/O colectomy H/O thyroidectomy History of appendectomy History of urostomy S/P hip replacement Family History Father Alcoholism Mother Alcoholism Social History household members: spouse Smoking Status: Former smoker alcohol intake: former substance use type: does not use Assessment & Plan Assessment & Plan narrative: Right Tibial plateau fracture No operative treatment indicated at this time.? Non-weight bearing to RLE, keep knee immobilizer in place at all times, may have off to shower.? Follow up in orthopedic clinic in 2 weeks for repeat imaging, will put send pt for locking knee brace at that time. Closed right humeral fracture This was being treated by Dr. Tierney non-operatively, and he continues to wear a sling COVID-19 COVID-19 status: Positive Result date/Date tested (Pos, Neg/Pending): 06/27/21 Time Spent With Patient Time with patient: less than 30 minutes Critical Care time: I spent a total of [] minutes of critical care time on this patient's care today; this time is exclusive of procedural time. Quality VTE Deep Vein Thrombosis/Pulmonary Embolism Present on Admission: No
[2021-06-29 11:10] LABS: COVID19 -Nasal RAPID Negative (Negative)
--- NOTE | 2021-06-29 15:21 | CM.DANOTE ---
DCP/continued: Reviewed chart. Per UR/RN patient remains in OBS status. Initially patient was COVID positive. Today patient tested and she was negative. Current d/c recommendation is SNF. Patient currently with no operative humerus fracture. [facility]LE[facility] HASHER AND RENDERER met with patient explained role. Patient agreeable to do whateiver his family thinks is best. Therefore, placed call to patient's daughter/Katie re: next steps. Katie reports that patient currently has [facility]. Family agreeable for patient to come home and resume those services however, patient currently 2 person max assist. SNF continues to be recommended. Patient and family have no preference in SNF. Placed call to [facility] and September reports that they do not have appropriate room for patient whom tested positive. Placed call to [facility] and spoke with Ashly. She is agreeable to review and possibly accept with COVID waiver on 07-01. Patient has order for COVID test tomorrow 07-10-21. [facility] will not finalize acceptance until another negative test confirmed. [facility] H[facility] RENDER[facility] faxed all records including vaccination proof. [facility] currently evaluating. If they are unable to accept family agreeable to take patient home with resume HH services from [facility]. P: Pending. JOVANI
--- NOTE | 2021-06-29 15:35 | PT.IPTN ---
Current Diagnoses Unspecified fracture of shaft of humerus, right arm, initial encounter for closed fracture (06/27/21) Displaced bicondylar fracture of unspecified tibia, initial encounter for closed fracture (06/27/21) Physical Therapy Treatment Note M2 PT-IP Current Condition Start: 06/27/21 13:36 Freq: NEEDED Status: Active Protocol: Document 06/27/21 11:48 AB (Rec: 06/27/21 13:49 AB [id number]) Physical Therapy Current Condition Current Condition Evaluation Date 06/27/21 Treatment Diagnosis R tibial plateau fx; R humeral fx; difficulty in walking Onset Date 06/27/21 M3 PT-IP Subjective Start: 06/27/21 13:36 Freq: NEEDED Status: Active Protocol: Document 06/29/21 15:14 KS (Rec: 06/29/21 16:05 KS [id number]) Subjective Physical Therapy Visit Type Type Treatment Note Visit Start Time 15:14 Visit Stop Time 15:35 Total Visit Minutes 21 Number of BUSINESS ANALYSIS CONSULTANT Visits 2 Physical Therapy Visit Comments Patient Comments agreeable to do PT Therapy Pain Assessment Pain When Pain Assessed During Mobility Pain Present Pain Present Pain Reported M4 PT-IP Mobility and Gait Start: 06/27/21 13:36 Freq: NEEDED Status: Active Protocol: Document 06/29/21 15:14 KS (Rec: 06/29/21 16:05 KS [id number]) PT-Bed Mobility Assessment Supine to Sit Supine to Sit Maximum Assistance,1 Person Assistance,Head of Bed Elevated,Bedrails Sit to Supine Sit to Supine Maximum Assistance,2 Person Assistance,Head of Bed Elevated Scooting Scooting to Edge of Bed Maximum Assistance PT-Transfer Assessment Sit to and From Stand Sit to and from Stand Maximum Assistance,1 Person Assistance Equipment Transfer Assistive Device Gait Belt,Front Wheeled Walker Transfers Transfer Destination Bed Transfer Technique Sit<>stand Transfer Ability Level of Assist Maximum Assistance,2 Person Assistance Comments Mobility Comments Pt in bed upon arrival and agreeable to working w/ therapy. Max A for sup<>sit w/ HOB elevated highly. Max A for scooting to EOB. Pt needs reminding of NWB RLE prior to standing. Pt sit<>stand using FWW weight bearing through LLE and LUE while i supported R side to prevent weightbearing on RLE and RUE w/ Max A. Pt stood ~10 seconds on first attempt and ~20 seconds on 2nd and 3rd sit<>Stand, all requiring Max A and cues for sequencing. Pt w/ quick approach to fatigue and not able to tolerate further treatment, but w/ good effort. Pt required Max A x2 for sit< >sup and repositioning in bed. Pt left in bed w/ all needs in reach. Gait Assessment Comments Gait Comments Unable PT-Balance Assessment Sitting Balance and Reactions Static Sitting Balance Ability Fair Dynamic Sitting Balance Ability Poor M5 PT-IP Objective Assessments Start: 06/27/21 13:36 Freq: NEEDED Status: Active Protocol: Document 06/27/21 11:48 AB (Rec: 06/27/21 13:49 AB [id number]) Orientation Orientation/Cognition Level of Alertness Alert Orientation Name,Place,Situation Safety Awareness Decreased Safety Awareness Memory Description Short Term Impaired Gross Range of Motion Upper Extremity ROM Assessment Right Impaired Impairments shoulder nt due to fx Lower Extremity ROM Assessment Right Impaired Impairments R knee on immobilizer and with fx and NT Strength Lower Extremity Strength Assessment Right Impaired Hip 2+/5 Sensation Assessment Sensation Gross Sensation WNL Muscle Tone Muscle Tone WNL Yes M6 PT-IP Treatment Start: 06/27/21 13:36 Freq: NEEDED Status: Active Protocol: Document 06/29/21 15:14 KS (Rec: 06/29/21 16:05 KS [id number]) Physical Therapy Treatment Education Education Provided Weight Bearing Status,Safety M7 PT-IP Assessment and Plan Start: 06/27/21 13:36 Freq: NEEDED Status: Active Protocol: Document 06/29/21 15:14 KS (Rec: 06/29/21 16:05 KS [id number]) PT Summary Assessment and Plan Potential Rehabilitation Potential Fair Status of Condition at Evaluation Evolving Summary Impairments Pain,ROM,Strength,Balance, Coordination,Sensation,Tone, Cognition,Bed Mobility, Transfers,Gait,Activity Tolerance Assessment Summary Pt continues to be limited by weakness, low activity tolerance, and NWB status of RUE and RLE. Able to sup<>sit Max A w/ HOB highy elevated and sit EOB prior to performing 3x sit<>stands each requiring Max A and max cues. I was able to support his R side to prevent weightbearing while standing w/ FWW Max A however pt unable to tolerate more than 20 seconds standing due to weakness. He is unsafe to return home due to high level of assist needed. He will require SNF to improve strength and functional mobilty. Goals Bed Mobility Goal Moderate Assistance Transfer Goal Maximal Assistance,Slide Board Other Goals sit to stand mod A using hemiwalker/quad cane Days to Meet Goals 10 Frequency of Treatment Frequency Of Treatment Once a Day Treatment Plan Physical Therapy Treatment Plan Bed Mobility Training,Transfer Training,Gait Training, Therapeutic Exercise,Balance Retraining,Discharge Planning, Hot or Cold Pack,Neuromuscular Re-ed,Coordination Retraining ,Manual Therapy Precautions Other Precautions RUE: sling RLE: knee immobilizer Covid precautions Weight Bearing Status Weight Bearing Status Non-Weight Bearing Allowed Weight Bearing Amount (enter % RUE/LE NWB or #) (%) Recommendations To Nursing Amount of Assist Needed Mechanical Lift Discharge Recommendations PT Discharge Recommendations SNF Rehab Transportation Needs at Discharge Wheelchair/Cabulance,Stretcher /Ambulance
--- NOTE | 2021-06-29 16:30 | PC.NURSE ---
AM Shift Patient reports pain well controlled overnight, diet changed to general today. Reconcilled patients home meds, added Salt tabs. Soft BP continues, Dr Linn made aware, Norvasc DC'd, Losartan reduced. Urostomy draining clear yellow, odorous urine. Output good.
[2021-06-29] MEDS: AMOXICILLIN/CLAV 875/125 MG 1 TAB PO ×2 (17:09→21:17)
[2021-06-29] MEDS: SODIUM CHLORIDE 1,000 MG TABLET 1000 MG PO (17:10)
[2021-06-29] MEDS: LOSARTAN 50 MG TABLET PO (19:43)
[2021-06-29] MEDS: ATORVASTATIN 20 MG TABLET 40 MG PO (21:11)
[2021-06-29] MEDS: TRAMADOL 50 MG TABLET PO (23:39)
[2021-06-30] VITALS (8 sets, daily range): BP systolic 101–120; BP diastolic 52–65; PULSE 70–95; RESP 14–18; TEMP 36.6–37.2; O2SAT 91–96
[2021-06-30] MEDS: ACETAMINOPHEN 325 MG TABLET 650 MG PO ×2 (05:54→17:34)
[2021-06-30] MEDS: LEVOTHYROXINE 100 MCG TABLET 200 MCG PO (05:55)
--- NOTE | 2021-06-30 06:47 | PC.NURSE ---
Patient rates pain RLE 5/10 with movement. Medicated with Tramadol with good pain relief. Ortho checks remain stable to RUE and RLE. Sling intact to RUE and Leg immobilizer to RLE in place. Patient repositioned with Teressa bed to left side. Patient repositioned to right side briefly, however patient only able to tolerate this for a brief period. Eri care given with small amount of redness between buttocks. Barrier cream applied and waffle cushion in place.
[2021-06-30] MEDS: PREGABALIN 75 MG CAPSULE 150 MG PO ×3 (09:26→21:15)
[2021-06-30] MEDS: AMOXICILLIN/CLAV 875/125 MG 1 TAB PO ×2 (09:27→21:15)
[2021-06-30] MEDS: APIXABAN 5 MG TABLET PO ×2 (09:27→21:15)
[2021-06-30] MEDS: DOCUSATE 100 MG CAPSULE PO (09:27)
[2021-06-30] MEDS: SODIUM CHLORIDE 1,000 MG TABLET 1000 MG PO (09:28)
[2021-06-30 09:48] LABS: COVID19 -Nasal RAPID Negative (Negative)
--- NOTE | 2021-06-30 14:11 | P.PN_ITS ---
Subjective Subjective Date Patient Seen: 06/30/21 Time Patient Seen: 08:00 Interval history: He has no complaints. His pain is moderately well controlled Exam Vital Signs (past 8 hours): - 06/30/21 08:35 06/30/21 09:31 06/30/21 09:32 Temperature 97.8 F Pulse Rate 95 H 76 Blood Pressure 101/62 Pulse Oximetry 95 92 95 06/30/21 09:36 Temperature Pulse Rate 70 Blood Pressure 101/62 Pulse Oximetry Oxygen Delivery Method Room Air Oxygen Flow Rate 0 Narrative Exam Narrative: GEN: no acute distress CV: regular rate and rhythm EXT: knee immobilizer in place, shoulder sling in place, both on right Objective Labs Result Diagrams: 06/28/21 05:05 06/28/21 05:05 Labs: Laboratory Results - last 24 hr 06/30/21 08:40 SARS-CoV-2 (PCR) Negative [facility] Medical History Bladder cancer Closed right humeral fracture Coronary artery disease Hypertension Hyponatremia Hypothyroid Kidney stones Prostate cancer Thyroid cancer Surgical History H/O colectomy H/O thyroidectomy History of appendectomy History of urostomy S/P hip replacement Family History Father Alcoholism Mother Alcoholism Social History household members: spouse Smoking Status: Former smoker alcohol intake: former substance use type: does not use Assessment & Plan Assessment & Plan narrative: Mr. Albarran is an 84M who presents after a fall with acute right tibial plateau fracture and right humeral fracture 1. Acute right tibial plateau fracture, present on admission. Active. -Ortho consulted and no indication for operation -Patient sustained a nonsyncopal slip and fall at his outside steps onto the right knee sustaining a non-displaced tibial plateau fracture. -Continued pain control and VTE prophylaxis per ortho.? -Continue Tylenol 650 mg every 6 hours for mild pain, Lyrica 150 mg 3 times daily, tramadol 50 mg q 8 hours for moderate pain and oxycodone 5 mg every 3 hours as needed for severe breakthrough pain. -Continue calcium and vitamin D3 supplementation. Patient will need to be treated for osteoporosis as an outpatient per PCP or ortho. -Physical and occupational therapy evaluation and treatment ordered. -patient is nonweightbearing on the right lower extremity for up to 6 weeks -he will need follow-up with orthopedics in 2 weeks for repeat imaging 2. Right humeral fracture, occurred previous to this knee injury on June 04, present on admission -Patient will continue to wear a sling. -follow up with ortho in two weeks 3. Hypertension, chronic, present on admission. Stable. -Patient with well controlled blood pressure, 134/60 upon arrival to the ER. -Continue home dose of amlodipine 5 mg daily, losartan 100 mg daily in the ev ening, and metoprolol succinate 25 mg daily. -with hypotension of 90s/50s on 06/28 the losartan dose was decreased to 50 mg and the amlodipine was stopped.? Continue metoprolol. 4. Anemia chronic disease, present on admission.? -Initial hemoglobin 10.5 which is higher than previous admissions. -06/28 hemoglobin 9.3, follow 5. Chronic hyponatremia, present on admission.? -Sodium on admission is 133, and follow-up 132, which is normal for him 6. CAD, present on admission. Stable. -Patient has no chest pain, palpitations or shortness of breath. -Continue home dose of aspirin 81 mg daily and Eliquis 2.5 mg twice daily. -Continue home dose atorvastatin 40 mg daily. 7. Long-term anticoagulation with Eliquis, chronic, present on admission.? Stable. -Unclear reason for anticoagulation. No history of atrial fibrillation, blood clots, PAD/PVD. May be for VTE prophylaxis in the setting of multiple previous cancers now presumed to be in remission? -continue home dose of apixaban 2.5 mg p.o. twice daily 8. Secondary hypothyroidism, chronic, present on admission. Stable. -Patient previously had thyroid cancer status post thyroidectomy. -Continue home dose of levothyroxine 200 mcg daily. 9. Peripheral neuropathy, chronic, present on admission. Stable. -Continued home dose of Lyrica 150 mg 3 times daily. 10. History of bladder and prostate cancer status post ileocecal conduit and urostomy with asymptomatic bacteriuria, chronic, present on admission. Stable. -Due to falls a UC was done. -E.coli in 06/27 UC - treat with 5 days of Augmentin -1st dose 06/29, last dose 07/04. Dispo: Medically stable for discharge, awaits snf placement Time Spent With Patient Critical Care time: I spent a total of [] minutes of critical care time on this patient's care today; this time is exclusive of procedural time. Quality VTE Deep Vein Thrombosis/Pulmonary Embolism Present on Admission: No
--- NOTE | 2021-06-30 15:20 | CM.DPNOTE ---
Discharge Planning Note: Patient is discharging to [facility]; PASSR, Covid 19 vac record, Medicare Waiver are ready for discharge. Time for discharge to facility on 07/01 has not yet been set; Ashly will provide that 07/01. [facility] requests a note from doctor/nurse indicating that patient is beyond need to isolate for covid as she cannot accept until patient is not requiring isolation/quarantine. Pt's daughter Katie informed of acceptance. She requests to be informed of time of admission and of visitation policy at [facility] is. Katie informed she will notify her mother, pt's spouse, as spouse gets confused by information from multiple people or people unknown to her. Hospitalist informed of acceptance; waiver signed. Nathaniel FIELDS
--- NOTE | 2021-06-30 16:24 | PT.IPTN ---
Current Diagnoses Unspecified fracture of shaft of humerus, right arm, initial encounter for closed fracture (06/27/21) Displaced bicondylar fracture of unspecified tibia, initial encounter for closed fracture (06/27/21) Physical Therapy Treatment Note M2 PT-IP Current Condition Start: 06/27/21 13:36 Freq: NEEDED Status: Active Protocol: Document 06/27/21 11:48 AB (Rec: 06/27/21 13:49 AB [id number]) Physical Therapy Current Condition Current Condition Evaluation Date 06/27/21 Treatment Diagnosis R tibial plateau fx; R humeral fx; difficulty in walking Onset Date 06/27/21 M3 PT-IP Subjective Start: 06/27/21 13:36 Freq: NEEDED Status: Active Protocol: Document 06/30/21 16:24 AW (Rec: 06/30/21 16:44 AW [id number]) Subjective Physical Therapy Visit Type Type Treatment Note Visit Start Time 15:55 Visit Stop Time 16:24 Total Visit Minutes 29 Notes Pt has now tested negative for COVID twice. Number of SHAPER MACHINE HAND Visits 0 Physical Therapy Visit Comments Patient Comments agreeable to do PT Therapy Pain Assessment Pain When Pain Assessed During Mobility Pain Present Pain Present Pain Reported M4 PT-IP Mobility and Gait Start: 06/27/21 13:36 Freq: NEEDED Status: Active Protocol: Document 06/30/21 16:24 AW (Rec: 06/30/21 16:44 AW [id number]) PT-Bed Mobility Assessment Supine to Sit Supine to Sit Maximum Assistance,1 Person Assistance,Head of Bed Elevated,Bedrails Sit to Supine Sit to Supine Maximum Assistance,1 Person Assistance,Head of Bed Elevated Scooting Scooting to Edge of Bed Maximum Assistance PT-Transfer Assessment Sit to and From Stand Sit to and from Stand Maximum Assistance,1 Person Assistance Equipment Transfer Assistive Device Gait Belt,Front Wheeled Walker Orthotic/Prosthetic Devices or Brace: Yes Transfers Transfer Destination Bed Transfer Technique Sit<>stand Transfer Ability Level of Assist Maximum Assistance,2 Person Assistance Comments Mobility Comments Pt was lying in bed as PT arrived. He agreed to get up and needed max A to complete supine to sit with HOB elevated. Max A for scooting to EOB. Pt sat with LUE resting on the bed while PT provided adjustment to RUE sling with improved fit and comfort afterward. Pt attempted to stand max A x 2 with PT's foot under pt's R foot to assess weightbearing. Pt was unable to stand without weight on the right foot; he sat after <10 seconds, citing weak LLE. After seated rest break, pt agreed to try again. He strategized aloud, pulling his left foot back and leaning forward to shift weight. PT raised the bed and pt needed slightly less assist to stand and was minimally more successful with keeping weight off the right foot. Pt unable to maintain standing > 10 seconds and needed to sit. Pt was assisted back to supine max A x 1 and was dependent for positioning on the bed. Pt was left with call light and tray table in reach and bed alarm on for safety. Gait Assessment Gait Able to Maintain Weight Bearing Status No During Gait Assistive Devices Orthotic/Prosthetic Devices or Brace: Yes Comments Gait Comments Unable PT-Balance Assessment Sitting Balance and Reactions Static Sitting Balance Ability Fair Dynamic Sitting Balance Ability Poor Standing Balance and Reactions Static Standing Balance Ability Poor Device Used FWW M5 PT-IP Objective Assessments Start: 06/27/21 13:36 Freq: NEEDED Status: Active Protocol: Document 06/27/21 11:48 AB (Rec: 06/27/21 13:49 AB [id number]) Orientation Orientation/Cognition Level of Alertness Alert Orientation Name,Place,Situation Safety Awareness Decreased Safety Awareness Memory Description Short Term Impaired Gross Range of Motion Upper Extremity ROM Assessment Right Impaired Impairments shoulder nt due to fx Lower Extremity ROM Assessment Right Impaired Impairments R knee on immobilizer and with fx and NT Strength Lower Extremity Strength Assessment Right Impaired Hip 2+/5 Sensation Assessment Sensation Gross Sensation WNL Muscle Tone Muscle Tone WNL Yes M6 PT-IP Treatment Start: 06/27/21 13:36 Freq: NEEDED Status: Active Protocol: Document 06/30/21 16:24 AW (Rec: 06/30/21 16:44 AW [id number]) Physical Therapy Treatment Education Education Provided Weight Bearing Status,Safety M7 PT-IP Assessment and Plan Start: 06/27/21 13:36 Freq: NEEDED Status: Active Protocol: Document 06/30/21 16:24 AW (Rec: 06/30/21 16:44 AW [id number]) PT Summary Assessment and Plan Summary Impairments Pain,ROM,Strength,Balance, Coordination,Sensation,Tone, Cognition,Bed Mobility, Transfers,Gait,Activity Tolerance Progress Towards Goals Slow Progress due to Pain,Slow Progress - Other Assessment Summary Pt continues to require max A x 1-2 for bed mobility and sit to stand. He is unable to maintain NWB RLE during sit to stand attempts and would be safer with slide board transfers at this time. He is unsafe to return home due to high level of assist needed. He will require SNF to improve strength and functional mobilty. Goals Bed Mobility Goal Moderate Assistance Transfer Goal Maximal Assistance,Slide Board Other Goals sit to stand mod A using hemiwalker/quad cane Days to Meet Goals 10 Frequency of Treatment Frequency Of Treatment Once a Day Treatment Plan Physical Therapy Treatment Plan Bed Mobility Training,Transfer Training,Gait Training, Therapeutic Exercise,Balance Retraining,Discharge Planning, Hot or Cold Pack,Neuromuscular Re-ed,Coordination Retraining ,Manual Therapy Precautions Other Precautions RUE: sling RLE: knee immobilizer Covid precautions (has now tested negative twice) Weight Bearing Status Weight Bearing Status Non-Weight Bearing Allowed Weight Bearing Amount (enter % RUE/LE NWB or #) (%) Recommendations To Nursing Amount of Assist Needed Mechanical Lift Discharge Recommendations PT Discharge Recommendations SNF Rehab Transportation Needs at Discharge Wheelchair/Cabulance,Stretcher /Ambulance
[2021-06-30] MEDS: LOSARTAN 50 MG TABLET PO (17:34)
[2021-06-30] MEDS: ATORVASTATIN 20 MG TABLET 40 MG PO (21:15)
[2021-06-30] MEDS: TRAMADOL 50 MG TABLET PO (21:16)
--- NOTE | 2021-06-30 21:17 | PC.NURSE ---
Noc Shift Arrived on shift, Pt is resting comfortably, denies pain at present. Immobilizer to RLE and sling in place to RUE. CMS+ x4. 2+ edema to RLE, continues per Pt, this is baseline, elevated in bed. VSS, Bp remains soft, enc PO intake. Urostomy to R draining odourus urine. Continues with ABX PO, tolerating well. Pt requests hold of bowel meds. Call light in reach.
[2021-07-01 00:55] VITALS: O2SAT 93
[2021-07-01 06:00] VITALS: BP 135/61; PULSE 76; RESP 14; TEMP 36.6; O2SAT 95
[2021-07-01] MEDS: METOPROLOL ER 25 MG TABLET PO (08:09)
[2021-07-01] MEDS: PREGABALIN 75 MG CAPSULE 150 MG PO (08:09)
[2021-07-01] MEDS: AMOXICILLIN/CLAV 875/125 MG 1 TAB PO (08:09)
[2021-07-01] MEDS: APIXABAN 5 MG TABLET PO (08:09)
[2021-07-01] MEDS: ACETAMINOPHEN 325 MG TABLET 650 MG PO (08:09)
[2021-07-01] MEDS: LEVOTHYROXINE 100 MCG TABLET 200 MCG PO (08:09)
[2021-07-01] MEDS: SODIUM CHLORIDE 1,000 MG TABLET 1000 MG PO (08:14)
--- NOTE | 2021-07-01 08:18 | P.DS_ITS ---
History of Present Illness History of Present Illness Date Patient Seen: 07/01/21 Time Patient Seen: 08:19 Chief complaint: Fall Narrative: SERGIO Hall: Francisco J Albarran is an 85 y.o. male with a past medical history significant for bladder cancer status post ileocecal conduit with urostomy, prostate cancer, thyroid cancer status post thyroidectomy, hypothyroidism, nephrolithiasis, coronary artery disease, hypertension, vertigo, peripheral neuropathy and long- term anticoagulation who presented to the ED after he fell and tripped on his front porch stairs and injured his right knee.? He was found to have had at right tibial plateau fracture nondisplaced.? The patient apparently several weeks ago fell and fractured his right humerus and his right arm is in a sling.? When he attempted to negotiate his stairs at his home, his tried to catch him and patient states both of them went down.? She was on hurt but he had pain in his right knee and decided to be evaluated in the emergency department.? He denies any headaches, losing consciousness, visual changes, shortness of breath, chest pain, nausea vomiting, abdominal pain, he has urinary ileostomy bag, and no complaints of diarrhea or constipation.? He does take stool softeners regularly.? He is requested for admission for physical therapy and further orthopedic evaluation.? The ED did request orthopedic consult and the patient's tibial plateau fracture is initially determined to be nonoperable.? Patient is afebrile, blood pressure 140/65, heart rate 66, respiratory rate 7, oxygen saturation of 95% on room air, his CBC is unremarkable is mildly anemic with a hemoglobin of 10.7, sodium 133, chloride 96, bicarb 33, his creatinine is 1.19 with a EGFR 58.1, glucose 121, liver enzymes within normal limits, and he is COVID positive asymptomatic. Discharge Providers Provider Date of admission: 06/27/21 06:10 Discharge Date: 07/01/21 Primary care physician: Rajeev Tanner MD Consults: 06/27/21 06:24 Consult to Physical Therapy Evaluate & Treat Comment: Non-operable right tibial plateau fracture, recent Physician Instructions: Evaluate and Treat 06/27/21 06:25 Consult to Physician Routine Comment: Consulting Provider: Mindi Day Reason for consultation: right tibial plateau fracture Has provider been notified: Yes 06/28/21 10:40 Consult to Occupational Therapy Evaluate & Treat Comment: Physician Instructions: Evaluate and treat Discharge provider: Norris Lennon DO Summary Hospital Course Discharge Diagnosis: Please see hospital course by problem list noted below. Hospital Course: Mr. Albarran is an 84M who presents after a fall with acute right tibial plateau fracture and right humeral fracture 1. Acute right tibial plateau fracture, present on admission. Active. -Orthopedic surgery was consulted and no indication for operation. -Patient sustained a nonsyncopal slip and fall at his outside steps onto the right knee sustaining a non-displaced tibial plateau fracture. -Continued pain control and VTE prophylaxis per ortho.? -Continue Tylenol 650 mg every 6 hours for mild pain, Lyrica 150 mg 3 times daily, tramadol 50 mg q 8 hours for moderate pain and oxycodone 5 mg every 3 h ours as needed for severe breakthrough pain. -Continue calcium and vitamin D3 supplementation. Patient will need to be treated for osteoporosis as an outpatient per PCP or ortho. -Physical and occupational therapy evaluation and treatment ordered. -patient is nonweightbearing on the right lower extremity for up to 6 weeks -he will need follow-up with orthopedics in 2 weeks for repeat imaging per their consultation. 2. Right humeral fracture, occurred previous to this knee injury on May d, present on admission -Patient will continue to wear a sling. -follow up with ortho in two weeks as noted above 3. Hypertension, chronic, present on admission. Stable. -Patient with well controlled blood pressure, 134/60 upon arrival to the ER. -Continued home dose of amlodipine 5 mg daily, losartan 100 mg daily in the evening, and metoprolol succinate 25 mg daily initially but developed hypote nsion of 90s/50s on 06/28 the losartan dose was decreased to 50 mg and the amlodipine was stopped.?No changes to home metoprolol. 4. Anemia chronic disease, present on admission.? -Initial hemoglobin 10.5 which is higher than previous admissions. 5. Chronic hyponatremia, present on admission.? -Sodium on admission is 133, and follow-up 132, which is normal for him 6. CAD, present on admission. Stable. -Patient had no chest pain, palpitations or shortness of breath. -Continue home dose of aspirin 81 mg daily and Eliquis 2.5 mg twice daily. -Continue home dose atorvastatin 40 mg daily. 7. Long-term anticoagulation with Eliquis, chronic, present on admission.? Stable. -Unclear reason for anticoagulation. No history of atrial fibrillation, blood clots, PAD/PVD. May be for VTE prophylaxis in the setting of multiple previous cancers now presumed to be in remission? -continue home dose of apixaban 2.5 mg p.o. twice daily 8. Secondary hypothyroidism, chronic, present on admission. Stable. -Patient previously had thyroid cancer status post thyroidectomy. -Continue home dose of levothyroxine 200 mcg daily. 9. Peripheral neuropathy, chronic, present on admission. Stable. -Continued home dose of Lyrica 150 mg 3 times daily. 10. History of bladder and prostate cancer status post ileocecal conduit and urostomy with asymptomatic bacteriuria, chronic, present on admission. Stable. -Due to falls a UC was done. -E.coli in 06/27 UC - treat with 5 days of Augmentin -1st dose 06/29, last dose 07/04. Dispo: Medically stable for discharge, awaits snf placement Time Spent with Patient Time spent: Greater than 30 minutes Exam Vital Signs (past 8 hours): - 07/01/21 00:55 07/01/21 06:00 Temperature 97.8 F Pulse Rate 76 Respiratory Rate 14 Blood Pressure 135/61 Pulse Oximetry 93 95 Oxygen Delivery Method Room Air Oxygen Flow Rate 0 Narrative Exam Narrative: GEN: no acute distress, WDWN CV: regular rate and rhythm no m/r/g Pulm: CTA b/l EXT: knee immobilizer in place, shoulder sling in place, both on right, no edema Objective Labs Result Diagrams: 06/28/21 05:05 06/28/21 05:05 Labs: Laboratory Results - last 24 hr 06/30/21 08:40 SARS-CoV-2 (PCR) Negative PFSH Medical History Bladder cancer Closed right humeral fracture Coronary artery disease Hypertension Hyponatremia Hypothyroid Kidney stones Prostate cancer Thyroid cancer Surgical History H/O colectomy H/O thyroidectomy History of appendectomy History of urostomy S/P hip replacement Family History Father Alcoholism Mother Alcoholism Social History household members: spouse Smoking Status: Former smoker alcohol intake: former substance use type: does not use Discharge Plan Discharge Plan Patient Disposition: SNF Provider Discharge Comment: Patient was admitted with multiple fractures after a fall. Transfer to SNF for continued ongoing PT and OT. I certify the postop hospital long-term care is medically necessary on a continuing basis for any conditions for which he/ she received care during this hospitalization.: Yes The receiving facility has agreed to accept transfer and provide medical treatment.: Yes Discharge orders & Medications Prescriptions: New losartan 50 mg Tablet 50 mg PO DAILY@1800 30 Days Qty: 30 0RF sennosides [senna] 8.6 mg Tablet 8.6 mg PO BID 14 Days Qty: 28 0RF polyethylene glycol 3350 17 gram Powder In Packet 17 gm PO DAILY PRN (Reason: Constipation) 14 Days Qty: 14 0RF tramadol 50 mg Tablet 50 mg PO Q4H PRN (Reason: Pain, Moderate (4-6)) 7 Days Qty: 20 0RF docusate sodium 100 mg Capsule 100 mg PO BID 14 Days Qty: 28 0RF amoxicillin-pot clavulanate 875-125 mg Tablet 1 tab PO BID 4 Days Qty: 8 0RF oxycodone 5 mg Tablet 5 mg PO Q3HR PRN (Reason: Pain, Moderate (4-6)) 7 Days Qty: 30 0RF pregabalin [Lyrica] 75 mg Capsule 150 mg PO TID 30 Days Qty: 180 0RF Continued atorvastatin 40 mg tablet 1 tab PO BEDTIME 0RF aspirin 81 mg tablet,delayed release (DR/EC) 1 tab PO DAILY 0RF Label Comments: he takes every other day levothyroxine 200 mcg Tablet 200 mcg PO 0700 0RF metoprolol succinate 25 mg tablet extended release 24 hr 1 tab PO DAILY 0RF Label Comments: AM docusate sodium 100 mg Tablet 100 mg PO BID 0RF Eliquis 5 mg tablet 5 mg PO DAILY 0RF Daily Multivitamin 200-100-500 mcg Capsule 1 cap PO DAILY 0RF ferrous gluconate 324 mg (38 mg iron) Tablet 324 mg PO DAILY Qty: 30 0RF sodium chloride 1 Gram tablet 1 g PO DAILY 0RF calcium carbonate-vitamin D3 [Oyster Shell Calcium-Vit D3] 500 mg(1,250mg) -2 00 unit Tablet 1 ea PO BIDWM Qty: 60 0RF Changed acetaminophen 325 mg Tablet 975 mg PO TID PRN (Reason: pain) Qty: 90 0RF Label Comments: PRN Discontinued losartan 50 mg tablet 100 mg PO QPM 0RF amlodipine 10 mg tablet 1 tab PO DAILY 0RF Label Comments: AM meclizine 25 mg tablet 25 mg PO Q8H PRN (Reason: Dizziness Or Vertigo) 0RF Label Comments: takes rarely fluticasone propionate [Flonase Allergy Relief] 50 mcg/actuation [place],Suspension 1 spray INTRANASAL BID 0RF pregabalin 150 mg capsule 1 cap PO TID Qty: 10 0RF Follow up/Referrals: Mindi Day MD [Physician] - 2 Weeks Rajeev Tanner MD [Primary Care Provider] - Diet/Activity/Treatments Diet: Diet as Tolerated Liquid consistency: Normal/Thin Food texture: Regular Activity: NWB RLE Discharge Data Primary Care Provider: Rajeev Tanner Attending Provider: Kira Reynoso VTE Deep Vein Thrombosis/Pulmonary Embolism Present on Admission: No
[2021-07-01 08:42] VITALS: O2SAT 94
--- NOTE | 2021-07-01 10:45 | CM.DPC ---
DCP/continued: Reviewed chart. Patient with order to d/c to SNF. [facility] waiver. Patient aware and agreeable to d/c plan. Patient's RN given number to call report. AGATA/Neyda to finalize d/c paperwork. Placed call to patient's octaviohter/Katie updating her on the above. She is very appreciative of all the assistance for patient re: d/c plan. P: Abby Tapia today. JOVANI
== END 2021-07-01 12:20 ==
LOC: ED 06:08 → AC 06:11 → ICU 06:44
PROVIDERS: Family Medicine; Internal Medicine; Admitting Provider Nurse Practitioner Family; Emergency Provider Emergency Medicine; PCP Internal Medicine; Referring Provider Emergency Medicine; Visit Provider Nurse Practitioner Family
DX: S82.144A Nondisplaced bicondylar fracture of right tibia, initial encounter for closed fracture (principal); W10.9XXA Fall (on) (from) unspecified stairs and steps, initial encounter; Y92.008 Other place in unspecified non-institutional (private) residence as the place of occurrence of the external cause; Z79.01 Long term (current) use of anticoagulants; I25.10 Atherosclerotic heart disease of native coronary artery without angina pectoris; E87.1 Hypo-osmolality and hyponatremia; D64.9 Anemia, unspecified; I10 Essential (primary) hypertension; E03.8 Other specified hypothyroidism; G62.9 Polyneuropathy, unspecified; U07.1 COVID-19; Z91.81 History of falling
CPT/HCPCS: 36415; 70450; 73700; 80048; 80053; 80076; 81001; 83735; 85025; 87077; 87086; 87186; 87635; 87797; 94760; 97162; 97530; 99284; C9803; G0378

== ENCOUNTER 2021-10-10 11:49 | Inpatient (IN) | payer MEDICARE, OTHER, SELFPAY ==
[2021-06-27 06:26] VITALS: BMI 26.2
[2021-10-10] VITALS (89 sets, daily range): BP systolic 58–137; BP diastolic 33–96; PULSE 80–146; RESP 12–48; TEMP 36.6–39.2; O2SAT 91–100; BMI 26.5; BMI 24.8
--- NOTE | 2021-10-10 11:54 | DI.RAD.S_ITS ---
PROCEDURE: XR CHEST 1V INDICATIONS: suspected sepsis TECHNIQUE: One view of the chest was acquired. COMPARISON: [facility], CR, XR CHEST 1V, 06/04/2021, 13:35. FINDINGS: Surgical changes and devices: Prior thyroidectomy. Lungs and pleura: Lungs are clear. No pleural effusions or pneumothorax. Mediastinum: Mediastinal contours appear normal. Heart size is normal. Atherosclerotic aortic arch. Bones and chest wall: No suspicious bony lesions. Overlying soft tissues appear unremarkable. IMPRESSION: No acute cardiopulmonary disease. Dictated by: Kaci Salas M.D. on 10/10/2021 at 13:22 Approved by: Kaci Salas M.D. on 10/10/2021 at 13:23
--- NOTE | 2021-10-10 12:06 | ED_ITS ---
HPI - Sepsis General Chief Complaint: Hypertension Evaluation Narrative: Patient is a 85-year-old male history of bladder cancer with urostomy, prostate cancer, thyroid cancer, coronary artery disease, hypertension, peripheral neuropathy with tibial plateau fracture on 06/27/2021. He was admitted to the hospital until 07/01/2021 when he was discharged repair of this long-term care facility where he stayed for 100 days. He was released to home 24 hours ago with home health care set up. Today family noted that urine was very dark and he was weaker than normal. Patient is awake alert oriented really has no complaints but his blood pressure is in the 60s. EMS reports hypotensive. Both hand patient stay his normal blood pressure is above 100 and fact they checked his blood pressure yesterday before he went home and he had a systolic of 109 he is currently afebrile denies any pain no shortness of breath. He apparently is on Eliquis states he has been on that for long time. Review of Systems Review of Systems ROS Unobtainable: All systems reviewed & are unremarkable except as noted in HPI and below Constitutional Constitutional: Denies body ache(s), Reports chills, Reports fatigue, Denies fever(s) and Denies frequent falls Cardiovascular Cardiovascular: Denies chest pain, Denies edema, Reports irregular heart rhythm and Reports dyspnea Respiratory Respiratory: Denies cough and Reports dyspnea Gastrointestinal Gastrointestinal: Denies abdominal pain, Denies melena and Denies nausea Genitourinary Genitourinary: Reports system reviewed and no additional complaints, except as documented and Reports as per HPI Musculoskeletal Musculoskeletal: Reports as per HPI Neurologic Neurologic: Denies frequent falls Endocrine Endocrine: Reports fatigue Patient History Medical History Bladder cancer Closed right humeral fracture Coronary artery disease Hypertension Hyponatremia Hypothyroid Kidney stones Prostate cancer Thyroid cancer Surgical History H/O colectomy H/O thyroidectomy History of appendectomy History of urostomy S/P hip replacement Family History Father Alcoholism Mother Alcoholism Social History household members: spouse Smoking Status: Former smoker alcohol intake: former substance use type: does not use Smoking Status: Former smoker alcohol intake frequency: other Substance Use Type: does not use Exam Initial Vital Signs Initial Vital Signs: Vital Signs Pulse Rate 94 H 10/10/21 11:54 Blood Pressure 68/40 L 10/10/21 11:54 Pulse Oximetry 95 10/10/21 11:54 GENERAL: Alert slightly pale is a 5-year-old male overall no acute distress HEENT: Head atraumatic,EOMI, pupils reactive, face symmetric, moist mucous membranes CARDIOVASCULAR: Regular rate and rhythm without murmurs, rubs or gallops. RESPIRATORY: Breath sounds equal bilaterally, no wheezes rales or rhonchi. ABDOMEN: Soft, nontender. Normoactive bowel sounds all 4 quadrants. No guarding or rebound. Urostomy and right lower quadrant bag is purple EXTREMITIES: Normal range of motion, no clubbing or edema. Neurovascularly intact Right lower extremity in knee immobilizer no significant swelling or ear NEUROLOGICAL: Alert and oriented x4. SKIN: Warm, dry, no laceration, no petechiae, no rashes or lesions. Procedures Central Line Placement Right IJ: Patient Placed on Monitor/Pulse Ox: Yes MD Prep: mask, gown and gloves Central Line Prep: Chlorhexidine scrub and sterile drapes applied Local Anesthetic: lidocaine 1% Amount of anesthesia used (mL): 5 Ultrasound Used for Placement: Yes Central Line Lumen Inserted: triple Post Procedure: sutured in place, good blood return, all ports aspirated, flushed, capped and sterile dressing applied Post Procedure X-Ray: tip of catheter in good position and no pneumothorax seen Patient Tolerated Procedure: Well Course Orders Ordered: ED Orders 10/10/21 11:54 XR chest 1V Stat EKG-12 Lead Stat RT Consult Eval and Treat NOW 10/10/21 12:02 Urinalysis and Microscopic Stat Urine Culture Stat 10/10/21 12:06 Blood Culture Stat NT-proBNP (BNP-Adult 18+) Stat Troponin & CK Cardiac Panel Stat 10/10/21 12:08 COVID19 -Nasal RAPID/Pre-Proc Stat 10/10/21 12:15 Complete Blood Count AUTO DIFF Stat Comprehensive Metabolic Panel Stat Lactate (Lactic Acid) Stat Lipase Stat Partial Thromboplastin Time Stat Procalcitonin Stat Prothrombin Time INR Stat 10/10/21 13:04 CT angio chest abdomen pelvis Stat 10/10/21 14:08 PRBC [Packed Cells] Stat Type and Screen Stat 10/10/21 14:34 Chest [XR chest 1V] Stat 10/10/21 15:50 Hemoglobin and Hematocrit Stat Lactate (Lactic Acid) Stat 10/10/21 16:03 EKG-12 Lead Stat NOREPINEPHRINE BITARTRATE/D5W (Levophed) 4 mg in 250 mls @ 30 mls/hr IV TITRATE FRED; Protocol Last Admin: 10/10/21 18:37 Dose: 8 mcg/min, 30 mls/hr Documented By: BRANDYN Discontinued Medications Acetaminophen (Acetaminophen 325 Mg Tablet) 975 mg PO NOW ONE Stop: 10/10/21 17:20 Last Admin: 10/10/21 17:21 Dose: 975 mg Documented By: OW Furosemide (Furosemide 40 Mg/4 Ml Vial) 40 mg IV NOW ONE Stop: 10/10/21 15:47 Last Admin: 10/10/21 16:24 Dose: 40 mg Documented By: BRANDYN Sodium Chloride (Normal Saline 0.9%) 1,000 mls @ 1,000 mls/hr IV BOLUS ONE Stop: 10/10/21 12:53 Last Admin: 10/10/21 11:41 Dose: Not Given Documented By: ERIC Ceftriaxone Sodium 2,000 mg/ (Sodium Chloride) 100 mls @ 200 mls/hr IV NOW ONE Stop: 10/10/21 11:57 Last Infusion: 10/10/21 13:05 Dose: 0 mls/hr Documented By: Admin: 10/10/21 12:18 Dose: 200 mls/hr Documented By: ERIC Lactated Ringer's (Lactated Ringers) 2,517.45 mls @ 839.15 mls/hr 30 ml/kg infuse over 3 hr (2517.45 ml) IV NOW ONE Stop: 10/10/21 15:13 Last Infusion: 10/10/21 15:49 Dose: 0 mls/hr Documented By: Admin: 10/10/21 12:17 Dose: 839.15 mls/hr Documented By: ERIC Prothrombin Complex Concent ( Human) 2,000 unit/Miscellaneous 80 mls @ 604.188 mls/hr IV NOW ONE; Protocol Stop: 10/10/21 15:00 Last Infusion: 10/10/21 15:38 Dose: 0 unit/kg/min, 0 mls/hr Documented By: Admin: 10/10/21 15:24 Dose: 3 unit/kg/min, 604.188 mls/hr Documented By: BRANDYN Pantoprazole Sodium (Pantoprazole 40 Mg Vial) 40 mg IV NOW ONE Stop: 10/10/21 14:47 Last Admin: 10/10/21 16:33 Dose: 40 mg Documented By: BRANDYN Vital Signs Vital signs: Vital Signs - 8 hr 10/10/21 12:02 10/10/21 12:09 10/10/21 11:54 Temperature 98.4 F Pulse Rate 91 H 90 Respiratory Rate 20 20 Blood Pressure 77/48 L 77/48 L 68/40 L Pulse Oximetry 96 96 Oxygen Delivery Method Room Air Room Air Oxygen Flow Rate 10/10/21 11:54 10/10/21 11:56 10/10/21 11:56 Temperature Pulse Rate 94 H 94 H Respiratory Rate 22 Blood Pressure 73/45 L Pulse Oximetry 95 95 Oxygen Delivery Method Oxygen Flow Rate 10/10/21 12:00 10/10/21 12:06 10/10/21 12:06 Temperature Pulse Rate 92 H 92 H Respiratory Rate 19 19 Blood Pressure 77/48 L Pulse Oximetry Oxygen Delivery Method Oxygen Flow Rate 10/10/21 12:10 10/10/21 12:10 10/10/21 12:20 Temperature Pulse Rate 89 Respiratory Rate 16 Blood Pressure 76/46 L 73/45 L Pulse Oximetry 96 Oxygen Delivery Method Oxygen Flow Rate 10/10/21 12:20 10/10/21 12:30 10/10/21 12:30 Temperature Pulse Rate 88 87 Respiratory Rate 18 21 Blood Pressure 76/47 L Pulse Oximetry 96 96 Oxygen Delivery Method Oxygen Flow Rate 10/10/21 12:41 10/10/21 12:41 10/10/21 12:50 Temperature Pulse Rate 84 82 Respiratory Rate 19 19 Blood Pressure 62/33 L Pulse Oximetry 95 Oxygen Delivery Method Oxygen Flow Rate 10/10/21 12:50 10/10/21 13:00 10/10/21 13:00 Temperature Pulse Rate 83 Respiratory Rate 16 Blood Pressure 62/36 L 64/38 L Pulse Oximetry 92 Oxygen Delivery Method Oxygen Flow Rate 10/10/21 13:10 10/10/21 13:20 10/10/21 13:23 Temperature Pulse Rate 82 91 H 104 H Respiratory Rate 16 23 28 H Blood Pressure Pulse Oximetry 99 Oxygen Delivery Method Oxygen Flow Rate 10/10/21 13:23 10/10/21 13:30 10/10/21 13:30 Temperature Pulse Rate 102 H Respiratory Rate 34 H Blood Pressure 79/51 L 82/50 L Pulse Oximetry 99 Oxygen Delivery Method Oxygen Flow Rate 10/10/21 13:40 10/10/21 13:41 10/10/21 13:41 Temperature Pulse Rate 106 H 106 H Respiratory Rate 48 H 42 H Blood Pressure 86/65 L Pulse Oximetry 99 99 Oxygen Delivery Method Nasal Cannula Nasal Cannula Oxygen Flow Rate 2 2 10/10/21 13:50 10/10/21 14:00 10/10/21 14:00 Temperature Pulse Rate 111 H 116 H Respiratory Rate 31 H 35 H Blood Pressure 120/59 L Pulse Oximetry 98 98 Oxygen Delivery Method Oxygen Flow Rate 10/10/21 14:10 10/10/21 14:20 10/10/21 14:30 Temperature Pulse Rate 118 H 120 H 123 H Respiratory Rate 43 H 28 H 43 H Blood Pressure Pulse Oximetry 97 100 98 Oxygen Delivery Method Oxygen Flow Rate 10/10/21 15:42 10/10/21 15:45 10/10/21 14:40 Temperature 97.8 F 99.1 F Pulse Rate 142 H 145 H 129 H Respiratory Rate 30 H 30 H 35 H Blood Pressure 117/96 H 89/58 L Pulse Oximetry 98 Oxygen Delivery Method Oxygen Flow Rate 10/10/21 14:50 10/10/21 15:00 10/10/21 15:10 Temperature Pulse Rate 132 H 134 H 135 H Respiratory Rate 32 H 32 H 41 H Blood Pressure Pulse Oximetry 99 97 97 Oxygen Delivery Method Oxygen Flow Rate 10/10/21 15:20 10/10/21 15:26 10/10/21 15:26 Temperature Pulse Rate 137 H 139 H Respiratory Rate 35 H 40 H Blood Pressure 117/96 H Pulse Oximetry 97 97 Oxygen Delivery Method Oxygen Flow Rate 10/10/21 15:30 10/10/21 15:40 10/10/21 15:47 Temperature Pulse Rate 138 H 142 H Respiratory Rate 35 H 32 H Blood Pressure 89/58 L Pulse Oximetry 97 97 Oxygen Delivery Method Oxygen Flow Rate 10/10/21 15:47 10/10/21 15:50 Temperature Pulse Rate 143 H 143 H Respiratory Rate 34 H 32 H Blood Pressure Pulse Oximetry 97 97 Oxygen Delivery Method Oxygen Flow Rate Sepsis Guideline Criteria Treatment Initiated Antibiotics:: IV antimicrobials will be initiated as soon as possible after recognition of sepsis state and within one hour for both sepsis and septic shock. MDM - Sepsis Lab Data Result diagrams: 10/10/21 16:08 10/10/21 12:15 Labs: Lab Results 10/10/21 10/10/21 10/10/21 Range/Units 12:02 12:06 12:08 WBC (4.5-11.0) X10^3/uL RBC (4.5-5.9) X10^6/uL Hgb (13.5-17.5) g/dL Hct (41-53) % MCV (80-100) fL MCH (26-34) PG MCHC (30-36) % RDW (11.6-14.8) % Plt Count (150-400) X10^3/uL Neut % (Auto) (50-75) % Lymph % (Auto) (25-40) % [place] % (Auto) (3-14) % Eos % (Auto) (2-4) % Baso % (Auto) (0-2) % Neut # (Auto) (3219-1590) /uL Lymph # (Auto) (4094-8699) /uL [place] # (Auto) (0-900) /uL Eos # (Auto) (0-450) /uL Baso # (Auto) (0-100) /uL PT (10.1-12.7) SECONDS INR (0.9-1.3) APTT (26.4-36.2) SECONDS Sodium (137-145) mmol/L Potassium (3.4-5.1) mmol/L Chloride (98-107) mmol/L Carbon Dioxide (22-32) mmol/L BUN (9-20) mg/dL Creatinine (0.66-1.25) mg/dL Estimated GFR (>60) mL/min BUN/Creatinine Ratio (6-22) Glucose (80-110) mg/dL Lactate (0.7-2.1) mmol/L Calcium (8.4-10.2) mg/dL Total Bilirubin (0.2-1.3) mg/dL AST (17-59) IU/L ALT (<50) IU/L Alkaline Phosphatase (38-126) U/L Total Creatine Kinase 67 (55-170) U/L CK-MB (CK-2) TNP CK-MB (CK-2) Rel Index TNP Troponin I 2.640 H* (0.01-0.034) ng/mL NT-Pro-B Natriuret Pep 6200 H (<450) pg/mL Total Protein (6.3-8.2) g/dL Albumin (3.5-5.0) g/dL Globulin (1.7-4.1) g/dL Albumin/Globulin Ratio (1.0-2.8) Lipase (23-300) U/L Procalcitonin (<0.5) ng/mL Urine Color Straw Urine Appearance Clear Urine pH 7.5 (4.5-8.0) Ur Specific [place] 1.010 (1.000-1.035) Urine Protein Negative (Negative) Urine Glucose (UA) Negative (Negative) g/dL Urine Ketones Negative (NEGATIVE) Urine Occult Blood 1+ H (Negative) Urine Nitrate Positive H (Negative) Urine Bilirubin Negative (NEGATIVE) Urine Urobilinogen 0.2 (0.2) E.U./dL Ur Leukocyte Esterase 1+ H (NEGATIVE) Urine RBC 0-1/hpf (0-5/HPF) Urine WBC 1-5/hpf (0-5/HPF) Ur Squamous Epith Cells 0-1 /hpf (0-5/HPF) Amorphous Sediment 1+ Urine Bacteria Many (>30) H (None) Ur Culture Indicated? Specimen cultured SARS-CoV-2 (PCR) Negative (Negative) Blood Type Antibody Screen Crossmatch 10/10/21 10/10/21 10/10/21 Range/Units 12:15 12:15 12:15 WBC 10.7 (4.5-11.0) X10^3/uL RBC 3.19 L (4.5-5.9) X10^6/uL Hgb 8.2 L (13.5-17.5) g/dL Hct 25.2 L (41-53) % MCV 78.9 L (80-100) fL MCH 25.7 L (26-34) PG MCHC 32.6 (30-36) % RDW 17.6 H (11.6-14.8) % Plt Count 369 (150-400) X10^3/uL Neut % (Auto) 74.7 (50-75) % Lymph % (Auto) 12.7 L (25-40) % [place] % (Auto) 9.6 (3-14) % Eos % (Auto) 2.3 (2-4) % Baso % (Auto) 0.7 (0-2) % Neut # (Auto) 8000 H (0172-4954) /uL Lymph # (Auto) 1400 (6042-8116) /uL [place] # (Auto) 1000 H (0-900) /uL Eos # (Auto) 200 (0-450) /uL Baso # (Auto) 100 (0-100) /uL PT 20.6 H (10.1-12.7) SECONDS INR 1.8 H (0.9-1.3) APTT (26.4-36.2) SECONDS Sodium 134 L (137-145) mmol/L Potassium 3.3 L (3.4-5.1) mmol/L Chloride 102 (98-107) mmol/L Carbon Dioxide 28 (22-32) mmol/L BUN 37 H (9-20) mg/dL Creatinine 1.01 (0.66-1.25) mg/dL Estimated GFR > 60 (>60) mL/min BUN/Creatinine Ratio 36.6 H (6-22) Glucose 110 (80-110) mg/dL Lactate (0.7-2.1) mmol/L Calcium 7.1 L (8.4-10.2) mg/dL Total Bilirubin 0.3 (0.2-1.3) mg/dL AST 28 (17-59) IU/L ALT 11 (<50) IU/L Alkaline Phosphatase 57 (38-126) U/L Total Creatine Kinase (55-170) U/L CK-MB (CK-2) CK-MB (CK-2) Rel Index Troponin I (0.01-0.034) ng/mL NT-Pro-B Natriuret Pep (<450) pg/mL Total Protein 5.2 L (6.3-8.2) g/dL Albumin 2.3 L (3.5-5.0) g/dL Globulin 2.9 (1.7-4.1) g/dL Albumin/Globulin Ratio 0.8 L (1.0-2.8) Lipase 84 (23-300) U/L Procalcitonin 0.11 (<0.5) ng/mL Urine Color Urine Appearance Urine pH (4.5-8.0) Ur Specific [place] (1.000-1.035) Urine Protein (Negative) Urine Glucose (UA) (Negative) g/dL Urine Ketones (NEGATIVE) Urine Occult Blood (Negative) Urine Nitrate (Negative) Urine Bilirubin (NEGATIVE) Urine Urobilinogen (0.2) E.U./dL Ur Leukocyte Esterase (NEGATIVE) Urine RBC (0-5/HPF) Urine WBC (0-5/HPF) Ur Squamous Epith Cells (0-5/HPF) Amorphous Sediment Urine Bacteria (None) Ur Culture Indicated? SARS-CoV-2 (PCR) (Negative) Blood Type Antibody Screen Crossmatch 10/10/21 10/10/21 10/10/21 Range/Units 12:15 12:15 14:08 WBC (4.5-11.0) X10^3/uL RBC (4.5-5.9) X10^6/uL Hgb (13.5-17.5) g/dL Hct (41-53) % MCV (80-100) fL MCH (26-34) PG MCHC (30-36) % RDW (11.6-14.8) % Plt Count (150-400) X10^3/uL Neut % (Auto) (50-75) % Lymph % (Auto) (25-40) % [place] % (Auto) (3-14) % Eos % (Auto) (2-4) % Baso % (Auto) (0-2) % Neut # (Auto) (2342-5371) /uL Lymph # (Auto) (1046-3078) /uL [place] # (Auto) (0-900) /uL Eos # (Auto) (0-450) /uL Baso # (Auto) (0-100) /uL PT (10.1-12.7) SECONDS INR (0.9-1.3) APTT 32 (26.4-36.2) SECONDS Sodium (137-145) mmol/L Potassium (3.4-5.1) mmol/L Chloride (98-107) mmol/L Carbon Dioxide (22-32) mmol/L BUN (9-20) mg/dL Creatinine (0.66-1.25) mg/dL Estimated GFR (>60) mL/min BUN/Creatinine Ratio (6-22) Glucose (80-110) mg/dL Lactate 2.0 (0.7-2.1) mmol/L Calcium (8.4-10.2) mg/dL Total Bilirubin (0.2-1.3) mg/dL AST (17-59) IU/L ALT (<50) IU/L Alkaline Phosphatase (38-126) U/L Total Creatine Kinase (55-170) U/L CK-MB (CK-2) CK-MB (CK-2) Rel Index Troponin I (0.01-0.034) ng/mL NT-Pro-B Natriuret Pep (<450) pg/mL Total Protein (6.3-8.2) g/dL Albumin (3.5-5.0) g/dL Globulin (1.7-4.1) g/dL Albumin/Globulin Ratio (1.0-2.8) Lipase (23-300) U/L Procalcitonin (<0.5) ng/mL Urine Color Urine Appearance Urine pH (4.5-8.0) Ur Specific [place] (1.000-1.035) Urine Protein (Negative) Urine Glucose (UA) (Negative) g/dL Urine Ketones (NEGATIVE) Urine Occult Blood (Negative) Urine Nitrate (Negative) Urine Bilirubin (NEGATIVE) Urine Urobilinogen (0.2) E.U./dL Ur Leukocyte Esterase (NEGATIVE) Urine RBC (0-5/HPF) Urine WBC (0-5/HPF) Ur Squamous Epith Cells (0-5/HPF) Amorphous Sediment Urine Bacteria (None) Ur Culture Indicated? SARS-CoV-2 (PCR) (Negative) Blood Type AB Positive Antibody Screen Negative Crossmatch See Detail 10/10/21 10/10/21 Range/Units 15:50 15:50 WBC (4.5-11.0) X10^3/uL RBC (4.5-5.9) X10^6/uL Hgb 9.5 L (13.5-17.5) g/dL Hct 29.0 L (41-53) % MCV (80-100) fL MCH (26-34) PG MCHC (30-36) % RDW (11.6-14.8) % Plt Count (150-400) X10^3/uL Neut % (Auto) (50-75) % Lymph % (Auto) (25-40) % [place] % (Auto) (3-14) % Eos % (Auto) (2-4) % Baso % (Auto) (0-2) % Neut # (Auto) (4556-1635) /uL Lymph # (Auto) (7045-7158) /uL [place] # (Auto) (0-900) /uL Eos # (Auto) (0-450) /uL Baso # (Auto) (0-100) /uL PT (10.1-12.7) SECONDS INR (0.9-1.3) APTT (26.4-36.2) SECONDS Sodium (137-145) mmol/L Potassium (3.4-5.1) mmol/L Chloride (98-107) mmol/L Carbon Dioxide (22-32) mmol/L BUN (9-20) mg/dL Creatinine (0.66-1.25) mg/dL Estimated GFR (>60) mL/min BUN/Creatinine Ratio (6-22) Glucose (80-110) mg/dL Lactate 2.7 H (0.7-2.1) mmol/L Calcium (8.4-10.2) mg/dL Total Bilirubin (0.2-1.3) mg/dL AST (17-59) IU/L ALT (<50) IU/L Alkaline Phosphatase (38-126) U/L Total Creatine Kinase (55-170) U/L CK-MB (CK-2) CK-MB (CK-2) Rel Index Troponin I (0.01-0.034) ng/mL NT-Pro-B Natriuret Pep (<450) pg/mL Total Protein (6.3-8.2) g/dL Albumin (3.5-5.0) g/dL Globulin (1.7-4.1) g/dL Albumin/Globulin Ratio (1.0-2.8) Lipase (23-300) U/L Procalcitonin (<0.5) ng/mL Urine Color Urine Appearance Urine pH (4.5-8.0) Ur Specific [place] (1.000-1.035) Urine Protein (Negative) Urine Glucose (UA) (Negative) g/dL Urine Ketones (NEGATIVE) Urine Occult Blood (Negative) Urine Nitrate (Negative) Urine Bilirubin (NEGATIVE) Urine Urobilinogen (0.2) E.U./dL Ur Leukocyte Esterase (NEGATIVE) Urine RBC (0-5/HPF) Urine WBC (0-5/HPF) Ur Squamous Epith Cells (0-5/HPF) Amorphous Sediment Urine Bacteria (None) Ur Culture Indicated? SARS-CoV-2 (PCR) (Negative) Blood Type Antibody Screen Crossmatch Point of Care Testing Stool Occult Blood Positive Imaging Data Chest x-ray: Radiologist's Impression: [address] [place] [id number] XRay Report Signed Patient: Francisco J Albarran MR#: [id number] : 1935 Acct:[id number] Age/Sex: 85 / M Date of Service: 10/10/21 Loc: ED Accession Number: [id number] ?? Procedure: XR chest 1V Ordering Provider: Shauna Evans D.O. PROCEDURE:? XR CHEST 1V ? INDICATIONS:? suspected sepsis ? TECHNIQUE:? One view of the chest was acquired.? ? COMPARISON:? [facility], JELENA, XR CHEST 1V, 06/04/2021, 13:35. ? FINDINGS:? ? Surgical changes and devices:? Prior thyroidectomy. ? Lungs and pleura:? Lungs are clear.? No pleural effusions or pneumothorax.? ? Mediastinum:? Mediastinal contours appear normal.? Heart size is normal.? Atherosclerotic aortic arch. ? Bones and chest wall:? No suspicious bony lesions.? Overlying soft tissues ap pear unremarkable.? ? IMPRESSION:? No acute cardiopulmonary disease.? ? ? Dictated by: Kaci Salas M.D. on 10/10/2021 at 13:22 ? ? Approved by: Kaci Salas M.D. on 10/10/2021 at 13:23 ? CT angio: Radiologist's Impression: [address] [address] [address] Scan Report Signed Patient: Francisco J Albarran MR#: [id number] : 1935 Acct:[id number] Age/Sex: 85 / M Date of Service: 10/10/21 Loc: ED Accession Number: [id number] ?? Procedure: CT angio chest abdomen pelvis Ordering Provider: Shauna Eavns D.O. PROCEDURE:? CT ANGIO CHEST ABDOMEN PELVIS ? INDICATIONS:? hypotensive ? TECHNIQUE:? Precontrast 5 mm thick sections acquired from the lung apices to the iliac crests.? After the administration of intravenous contrast, 2.5 mm thick sections again acquired from the lung apices to the iliac crests.? Maximum intensity projection (MIP) oblique sagittal and coronal reformats were then acquired.? For radiation dose reduction, the following was used:? automated exposure control.? ? COMPARISON:? [facility], CT, CT SHOULDER RIGHT WITHOUT CONTRAST, 08/09/2021, 14:10.? [facility], CT, CT ABDOMEN PELVIS W CON, 08/09/2018, 9:56. ? FINDINGS:? Image quality:? Excellent.? ? AORTA:? Intramural hematoma:? Absent. Dissection:? Absent. ? Multifocal aortic atherosclerosis present.? Ectasia of the ascending thoracic aorta measuring up to 4.0 cm measured at the level of the right pulmonary artery.? No simon aortic aneurysm demonstrated. ? CHEST:? Lungs and pleura:? No consolidation, pleural effusions or pneumothorax.? Central and peripheral airways are patent and normal in caliber.? No pulmonary embolism to the level of the segmental arteries.? A few small pulmonary nodules are present, for example 3 mm at the upper right middle lobe (6/167) and 4 mm at the lingula (6/177). ? Mediastinum:? Heart size is normal.? No pericardial effusion.? No mediastinal or hilar adenopathy by size criteria.? Central pulmonary arteries are normal in size.? Esophagus is normal in caliber.? ? Chest wall:? No axillary adenopathy by size criteria.? ? ? ABDOMEN:? Vasculature:? Celiac trunk and mesenteric arteries are patent.? Renal arteries are also patent.? ? Solid organs:? Liver is unremarkable.? Gallbladder contains numerous small stones .? Biliary system is non dilated.? ? No dilation of the main pancreatic duct.? There are several small hypodense foci within the pancreas, likely cysts, for example a 1.8 cm cystic structure at the pancreatic body (5/152).? These were not easily seen on the prior CT, may be new or increased. ? Spleen is normal in size and enhancement.? No adrenal nodules.? Bilateral renal pelviectasis without simon severe hydronephrosis.? Suspected right lower quadrant urinary diversion/urostomy. ? Peritoneum and bowel:? No substantial free fluid or air.? No evidence of mechanical small bowel obstruction.? Postsurgical changes from partial colectomy.? Possible rectal wall thickening and perirectal fat stranding fluid most conspicuous on metal artifact suppression images. ? Nodes and vessels:? No retroperitoneal or mesenteric adenopathy by size criteria.? Inferior vena cava is normal in morphology.? ? Miscellaneous:? No ventral hernias.? ? ? PELVIS:? Genitourinary:? Bladder and prostate gland are not visualized, and may be surgically absent or obscured by hip arthroplasty artifact ? Bones:? Bilateral hip arthroplasty.? Degenerative changes of the spine.? Redemonstrated non-acute right humeral neck fracture. ? ? IMPRESSION:? 1. No aortic dissection demonstrated. 2. No evidence of pulmonary embolism to the level of the segmental arteries. 3. Cholelithiasis. 4. Probable rectal wall thickening with perirectal fat stranding and fluid.? C orrelation for a proctitis may be helpful, with infectious or inflammatory etiologies possible. 5. Few small nonspecific pulmonary nodules.? These can be followed on future follow-up exams.? Otherwise consider follow-up in 6-12 months or at clinical discretion. 6. A few small hypodense foci are present within the pancreas, probably cysts.? Per ACR guidelines the decision to pursue imaging follow-up and/or EUS/FNA should be related to the patient's overall health and preferences.? If desired, imaging follow up of these findings can be performed, with follow-up imaging in 2 years or other interval at clinical discretion.? Dictated by: Tavo Berg M.D. on 10/10/2021 at 14:06 ? ? Approved by: Tavo Berg M.D. on 10/10/2021 at 14:36 ? CXR 2: Radiologist's Impression: Signed Patient: Francisco J Albarran MR#: [id number] : 1935 Acct:[id number] Age/Sex: 85 / M Date of Service: 10/10/21 Loc: [facility] Accession Number: [id number] ?? Procedure: XR chest 1V Ordering Provider: Shauna Evans D.O. PROCEDURE:? XR CHEST 1V ? INDICATIONS:? IJ placement ? TECHNIQUE:? One view of the chest was acquired.? ? COMPARISON:? [facility], CR, XR CHEST 1V, 10/10/2021, 11:54.? [facility], CR, XR CHEST 1V, 06/04/2021, 13:35. ? FINDINGS:? ? Surgical changes and devices:? Tip of the right internal jugular central venous catheter projects near the superior cavoatrial junction.? Metal clips project over the neck. ? Lungs and pleura:? Streaky opacities present at the left mid and lower lung.? No pleural effusions or pneumothorax.? ? Mediastinum:? Mediastinal contours appear normal.? Cardiac silhouette is at the upper limit of normal in size.? ? Bones and chest wall:? No suspicious bony lesions.? Nonacute right humeral neck fracture. ?Overlying soft tissues appear unremarkable.? ? IMPRESSION:? 1. Tip of the right internal jugular central venous catheter projects near the superior cavoatrial junction. 2. No pneumothorax.? 3. Minimal nonspecific left mid and lower lung opacities, could represent atelectasis or pneumonia.? ? Dictated by: Tavo Berg M.D. on 10/10/2021 at 16:15 ? ? [facility] Narrative Medical decision making narrative: Patient initially presents hypotensive slightly pale thought to be a UTI and sepsis. Sepsis fluids were ordered and started he was empirically given antibiotics. Urine is positive for nitrates and leukocytes. However he initially is afebrile without leukocytosis and normal lactate and negative procalcitonin. He is slightly pale ill he remains hypotensive despite IV fluids. Family had a bowel movement which is guaiac positive it is not bright red. Hemoglobin is not actually too low I the risk is relatively stable, hemoglobin today is 8.2 hematocrit 25 baseline for him seems to be around 9 or 10. However due to hypotension not improving necessary Liz with IV fluids no signs of severe sepsis hypotension may be due from GI bleeding. Patient is reversed with Kcentra for the Eliquis he is given a unit of blood. Blood work is actually reach actually he H&Hs recheck before blood is given and his hemoglobin is 9.5 and hematocrit 29. Does not quite make sense. He continues have bowel movements but they are not grossly bloody. He is given Protonix. He is given 1 unit of blood. Blood pressure is very labile he then spiked fever of 102 this is either from infection or blood transfusion reaction. He is given Tylenol. Blood pressure again decreases into the 80s and 50s. Levophed is started. Patient troponin is noted to be elevated at 2.6, he has no EKG changes he has no chest pain. This is likely from severe hypotension and cardiac stress Multiple conversations and confirmation with both patient and his . They are agreeable to vasopressors and blood transfusion however not to intubation for CPR. This concurs with his POLST form Dr. Mendieta updated patient's symptoms test reveals concern initially for GI bleeding. He is happy to see in consult. Recommends Protonix agrees with blood transfusion Dr. Painter cardiology updated patient's symptoms test results agrees that this is unlikely to be cardiac related requests treating hypotension possible GI bleed or infection and stopping Eliquis if he is truly a GI bleed Dr. Tierney, updated on patient's symptoms test results agrees with admission. Critical Care Time Critical Care Time Critical Care Time: Yes Total Critical Care Time: 60 Attestation: The high probability of a clinically significant, sudden or life threatening deterioration of the [cardiovascular] system(s) required my full and direct attention, intervention and personal management. The aggregate critical care time was 60 minutes. This time is in addition to time spent performing reported procedures but includes the following: [x] Data Review and interpretation [x] Patient assessment and monitoring of vital signs [x] Documentation [x] Medication orders and management Discharge Plan Departure Patient Disposition: Admitted As Inpatient Clinical Impression: Acute GI bleeding, Acute UTI, Sepsis associated hypotension Admit Date/Time: 10/10/21 16:03 Admit Provider: Ragini Cheung
[2021-10-10] MEDS: LACTATED RINGERS 839.15 ML IV (12:17)
[2021-10-10] MEDS: cefTRIAXone 2,000 MG in SODIUM CHLORIDE 0.9% 100 ML 200 MG IV (12:18)
[2021-10-10 12:26] LABS: Add Manual Diff / Slide Review NO; Basophils Absolute Auto 100 /uL (0-100); Basophils Percent Auto 0.7 % (0-2); Eosinophils Absolute Auto 200 /uL (0-450); Eosinophils Percent Auto 2.3 % (2-4); Hematocrit 25.2 % (41-53); Hemoglobin 8.2 g/dL (13.5-17.5); Lymphocytes Absolute Auto 1400 /uL (1100-4500); Lymphocytes Percent Auto 12.7 % (25-40); Mean Corpuscular HGB Conc 32.6 % (30-36); Mean Corpuscular Hemoglobin 25.7 PG (26-34); Mean Corpuscular Volume 78.9 fL (80-100); Monocytes Absolute Auto 1000 /uL (0-900); Monocytes Percent Auto 9.6 % (3-14); Neutrophils Absolute Auto 8000 /uL (1500-7000); Neutrophils Percent Auto 74.7 % (50-75); Platelet Count 369 X10^3/uL (150-400); Red Blood Cell Count 3.19 X10^6/uL (4.5-5.9); Red Cell Distribution Width 17.6 % (11.6-14.8); White Blood Cell Count 10.7 X10^3/uL (4.5-11.0)
[2021-10-10 12:32] LABS: Appearance Urine UA CLEAR; Bilirubin Urine UA NEGATIVE (NEGATIVE); Glucose Urine UA NEGATIVE (Negative); Ketones Urine UA NEGATIVE (NEGATIVE); Leukocyte Esterase Urine UA 1+ (NEGATIVE); Nitrite Urine UA POSITIVE (Negative); Occult Blood Urine UA 1+ (Negative); Protein Urine UA NEGATIVE (Negative); Urobilinogen Urine UA 0.2 E.U./dL (0.2); pH Urine UA 7.5 (4.5-8.0)
[2021-10-10 12:34] LABS: Color Urine UA Straw
[2021-10-10 12:35] LABS: PTT Partial Thromboplastin Tim 32 SECONDS (26.4-36.2)
[2021-10-10 12:38] LABS: Alanine Aminotransferase 11 IU/L (<50); Albumin 2.3 g/dL (3.5-5.0); Albumin Globulin Ratio 0.8 (1.0-2.8); Alkaline Phosphatase 57 U/L (38-126); Aspartate Aminotransferase 28 IU/L (17-59); BUN Creatinine Ratio 36.6 (6-22); Bilirubin Total 0.3 mg/dL (0.2-1.3); Blood Urea Nitrogen 37 mg/dL (9-20); Calcium 7.1 mg/dL (8.4-10.2); Carbon Dioxide 28 mmol/L (22-32); Chloride 102 mmol/L (98-107); Estimated Glomerular Filt Rate > 60 mL/min (>60); Globulin 2.9 g/dL (1.7-4.1); Glucose 110 mg/dL (80-110); HEMOLYSIS < 15 (0-50); INR 1.8 (0.9-1.3); Lipase 84 U/L (23-300); Potassium 3.3 mmol/L (3.4-5.1); Prothrombin Time 20.6 SECONDS (10.1-12.7); Sodium 134 mmol/L (137-145); Total Protein 5.2 g/dL (6.3-8.2)
[2021-10-10 12:45] LABS: COVID19 -Nasal RAPID Negative (Negative)
[2021-10-10 12:54] LABS: Procalcitonin 0.11 ng/mL (<0.5)
[2021-10-10 12:55] LABS: Amorphous Sediment Urine 1+; Bacteria Urine Many (>30); Culture Indicated Urine Specimen Cultured; RBC Urine 0-1/HPF (0-5/HPF); Squamous Epithelial Cell Urine 0-1 /HPF (0-5/HPF); WBC Urine 1-5/HPF (0-5/HPF)
--- NOTE | 2021-10-10 13:04 | DI.CT.S_ITS ---
PROCEDURE: CT ANGIO CHEST ABDOMEN PELVIS INDICATIONS: hypotensive TECHNIQUE: Precontrast 5 mm thick sections acquired from the lung apices to the iliac crests. After the administration of intravenous contrast, 2.5 mm thick sections again acquired from the lung apices to the iliac crests. Maximum intensity projection (MIP) oblique sagittal and coronal reformats were then acquired. For radiation dose reduction, the following was used: automated exposure control. COMPARISON: [facility], CT, CT SHOULDER RIGHT WITHOUT CONTRAST, 08/09/2021, 14:10. [facility], CT, CT ABDOMEN PELVIS W CON, 08/09/2018, 9:56. FINDINGS: Image quality: Excellent. AORTA: Intramural hematoma: Absent. Dissection: Absent. Multifocal aortic atherosclerosis present. Ectasia of the ascending thoracic aorta measuring up to 4.0 cm measured at the level of the right pulmonary artery. No simon aortic aneurysm demonstrated. CHEST: Lungs and pleura: No consolidation, pleural effusions or pneumothorax. Central and peripheral airways are patent and normal in caliber. No pulmonary embolism to the level of the segmental arteries. A few small pulmonary nodules are present, for example 3 mm at the upper right middle lobe (6/167) and 4 mm at the lingula (6/177). Mediastinum: Heart size is normal. No pericardial effusion. No mediastinal or hilar adenopathy by size criteria. Central pulmonary arteries are normal in size. Esophagus is normal in caliber. Chest wall: No axillary adenopathy by size criteria. ABDOMEN: Vasculature: Celiac trunk and mesenteric arteries are patent. Renal arteries are also patent. Solid organs: Liver is unremarkable. Gallbladder contains numerous small stones . Biliary system is non dilated. No dilation of the main pancreatic duct. There are several small hypodense foci within the pancreas, likely cysts, for example a 1.8 cm cystic structure at the pancreatic body (5/152). These were not easily seen on the prior CT, may be new or increased. Spleen is normal in size and enhancement. No adrenal nodules. Bilateral renal pelviectasis without simon severe hydronephrosis. Suspected right lower quadrant urinary diversion/urostomy. Peritoneum and bowel: No substantial free fluid or air. No evidence of mechanical small bowel obstruction. Postsurgical changes from partial colectomy. Possible rectal wall thickening and perirectal fat stranding fluid most conspicuous on metal artifact suppression images. Nodes and vessels: No retroperitoneal or mesenteric adenopathy by size criteria. Inferior vena cava is normal in morphology. Miscellaneous: No ventral hernias. PELVIS: Genitourinary: Bladder and prostate gland are not visualized, and may be surgically absent or obscured by hip arthroplasty artifact Bones: Bilateral hip arthroplasty. Degenerative changes of the spine. Redemonstrated non-acute right humeral neck fracture. IMPRESSION: 1. No aortic dissection demonstrated. 2. No evidence of pulmonary embolism to the level of the segmental arteries. 3. Cholelithiasis. 4. Probable rectal wall thickening with perirectal fat stranding and fluid. Correlation for a proctitis may be helpful, with infectious or inflammatory etiologies possible. 5. Few small nonspecific pulmonary nodules. These can be followed on future follow-up exams. Otherwise consider follow-up in 6-12 months or at clinical discretion. 6. A few small hypodense foci are present within the pancreas, probably cysts. Per ACR guidelines the decision to pursue imaging follow-up and/or EUS/FNA should be related to the patient's overall health and preferences. If desired, imaging follow up of these findings can be performed, with follow-up imaging in 2 years or other interval at clinical discretion. Dictated by: Tavo Berg M.D. on 10/10/2021 at 14:06 Approved by: Tavo Berg M.D. on 10/10/2021 at 14:36
[2021-10-10 13:12] LABS: Creatine Kinase 67 U/L (55-170)
[2021-10-10 13:24] LABS: NT-proBNP (BNP-Adult 18+) 6200 pg/mL (<450)
--- NOTE | 2021-10-10 14:34 | DI.RAD.S_ITS ---
PROCEDURE: XR CHEST 1V INDICATIONS: IJ placement TECHNIQUE: One view of the chest was acquired. COMPARISON: [facility], CR, XR CHEST 1V, 10/10/2021, 11:54. [facility], CR, XR CHEST 1V, 06/04/2021, 13:35. FINDINGS: Surgical changes and devices: Tip of the right internal jugular central venous catheter projects near the superior cavoatrial junction. Metal clips project over the neck. Lungs and pleura: Streaky opacities present at the left mid and lower lung. No pleural effusions or pneumothorax. Mediastinum: Mediastinal contours appear normal. Cardiac silhouette is at the upper limit of normal in size. Bones and chest wall: No suspicious bony lesions. Nonacute right humeral neck fracture. Overlying soft tissues appear unremarkable. IMPRESSION: 1. Tip of the right internal jugular central venous catheter projects near the superior cavoatrial junction. 2. No pneumothorax. 3. Minimal nonspecific left mid and lower lung opacities, could represent atelectasis or pneumonia. Dictated by: Tavo Berg M.D. on 10/10/2021 at 16:15 Approved by: Tavo Berg M.D. on 10/10/2021 at 16:18
[2021-10-10] MEDS: PROTHROMBIN CPLX(PCC)4FACT 2,000 UNIT in ISOOSMOTIC VEHICLE 0 ML 604.188 UNIT IV (15:24)
[2021-10-10 16:02] LABS: Hemoglobin 9.5 g/dL (13.5-17.5)
[2021-10-10 16:11] LABS: Lactate (Lactic Acid) 2.7 mmol/L (0.7-2.1)
[2021-10-10] MEDS: FUROSEMIDE 40 MG/4 ML VIAL IV (16:24)
[2021-10-10] MEDS: PANTOPRAZOLE 40 MG VIAL IV (16:33)
[2021-10-10 16:36] LABS: Hematocrit 30.6 % (41-53)
[2021-10-10] MEDS: ACETAMINOPHEN 325 MG TABLET 975 MG PO (17:21)
--- NOTE | 2021-10-10 17:54 | PC.NURSE ---
1720 Pt have developed a fever and became agitated and confused. Pt lungs continue to sound clear throughout and pt's work of breathing is unchanged and continues to be tachypneic. Pt has negative FAST exam for stroke. Pt skin is pink and no longer pale. Respirations, HR and BP unchanged from VS prior to administration of blood products at 1557. There is 100cc of PRBC that have no infused yet. Dr. Evans notified of patient's changes and verbal order has been given to finish the first PRBC and hold on giving the second unit of PRBC. 1800 Pt has become less agitated and is sleeping and has been given PO tylenol.
[2021-10-10 17:57] LABS: Reflexed Lactate in 2 Hours Y
--- NOTE | 2021-10-10 18:17 | PC.NURSE ---
Pt follow direction to turn self while this RN changes patient's briefs and cleans his buttock and sacral area of soft dark brown stool. No signs of simon blood. Pt has similar stage 2 pressure ulcer as noted during last skin assessment.
[2021-10-10] MEDS: NOREPINEPHRINE BITARTRATE/D5W 4 MG/250 ML PLAST..BAG 30 MG IV (18:37)
[2021-10-10 19:47] LABS: Lactate 2HR (Lactic Acid Rflx) 2.6 mmol/L (0.7-2.1)
--- NOTE | 2021-10-10 20:41 | PM.CN.EICU ---
History of Present Illness Consult details Chief complaint: hypotensive/sepsis/dark urine Requesting provider: Lucia Shipman Provider location (State): [place] Narrative: 85 y.o. male who was discharged from rehab facility (there since 06/2021) who presented to ED with dark urine. Patient's family noted that he appeared weaker than usual although patient was without complaints. Hypotensive to systolic in 60s on ED arrival. Initial diagnostic impression was possible GIB; given PCC and pRBC in the ED with appropriate increase in Hgb. C/A/P CT scan showed cholelithiasis, pulmonary nodules and possible proctitis. UA and urine micro are suspicious for a UTI. Given crystalloid but ultimately required NE infusion which was 11 mcg/min upon initial camera activation. PMHx: CAD, HTN, thyroid CA, prostate CA, bladder CA with urostomy; tib plateau fx in 06/2021 [facility] Medical History (Updated 10/10/21 @ 20:48 by Héctor Beaver MD) Bladder cancer Closed right humeral fracture Coronary artery disease Hypertension Hyponatremia Hypothyroid Kidney stones Prostate cancer Thyroid cancer Surgical History H/O colectomy H/O thyroidectomy History of appendectomy History of urostomy S/P hip replacement Family History Father Alcoholism Mother Alcoholism Social History household members: spouse Smoking Status: Former smoker alcohol intake: former substance use type: does not use Current Medications Current Medications Medications: Home Medications aspirin 81 mg tablet,delayed release 1 tab PO DAILY 11/07/17 [History Confirmed 06/29/21] atorvastatin 40 mg tablet 1 tab PO BEDTIME 11/07/17 [History Confirmed 06/29/21] docusate sodium 100 mg tablet 100 mg PO BID 06/11/18 [History Confirmed 06/29/21] metoprolol succinate 25 mg tablet,extended release 24 hr 1 tab PO DAILY 06/11/18 [History Confirmed 06/29/21] levothyroxine 200 mcg tablet 200 mcg PO 0700 08/09/18 [History Confirmed 06/29/21] apixaban 5 mg tablet (Eliquis) 5 mg PO DAILY 10/31/19 [History Confirmed 06/29/21] [id number] 200 mcg-vit K 100 mcg-lycop 500 [id number] capsule (Daily Multivitamin) 1 cap PO DAILY 10/31/19 [History Confirmed 06/29/21] calcium carbonate 500 mg-vitamin D3 5 mcg (200 unit) tablet (Oyster Shell Calcium-Vitamin D3) 1 ea PO BIDWM #60 tabs 11/05/19 [Rx Confirmed 06/29/21] ferrous gluconate 324 mg (38 mg iron) tablet 324 mg PO DAILY #30 tabs 11/05/19 [Rx Confirmed 06/29/21] sodium chloride 1 g PO DAILY 11/05/19 [History Confirmed 06/29/21] acetaminophen 325 mg tablet 975 mg PO TID PRN pain #90 tabs 07/01/21 [Rx Confirmed 06/29/21] Visit Medications (administered) Generic Name Dose Route Start Last Admin Trade Name Freq PRN Reason Stop Dose Admin NOREPINEPHRINE BITARTRATE/D5W 4 mg in 250 mls @ 30 mls/hr 10/10/21 13:08 10/10/21 20:29 Levophed IV 12 mcg/min TITRATE FRED 45 mls/hr Titration Protocol 8 MCG/MIN Exam Vital Signs (past 8 hours): - 10/10/21 12:50 10/10/21 12:50 10/10/21 13:00 Temperature Pulse Rate 82 Respiratory Rate 19 Blood Pressure 62/36 L 64/38 L Pulse Oximetry 95 Oxygen Delivery Method Oxygen Flow Rate 10/10/21 13:00 10/10/21 13:10 10/10/21 13:20 Temperature Pulse Rate 83 82 91 H Respiratory Rate 16 16 23 Blood Pressure Pulse Oximetry 92 99 Oxygen Delivery Method Oxygen Flow Rate 10/10/21 13:23 10/10/21 13:23 10/10/21 13:30 Temperature Pulse Rate 104 H Respiratory Rate 28 H Blood Pressure 79/51 L 82/50 L Pulse Oximetry Oxygen Delivery Method Oxygen Flow Rate 10/10/21 13:30 10/10/21 13:40 10/10/21 13:41 Temperature Pulse Rate 102 H 106 H 106 H Respiratory Rate 34 H 48 H 42 H Blood Pressure Pulse Oximetry 99 99 99 Oxygen Delivery Method Nasal Cannula Nasal Cannula Oxygen Flow Rate 2 2 10/10/21 13:41 10/10/21 13:50 10/10/21 14:00 Temperature Pulse Rate 111 H Respiratory Rate 31 H Blood Pressure 86/65 L 120/59 L Pulse Oximetry 98 Oxygen Delivery Method Oxygen Flow Rate 10/10/21 14:00 10/10/21 14:10 10/10/21 14:20 Temperature Pulse Rate 116 H 118 H 120 H Respiratory Rate 35 H 43 H 28 H Blood Pressure Pulse Oximetry 98 97 100 Oxygen Delivery Method Oxygen Flow Rate 10/10/21 14:30 10/10/21 15:42 10/10/21 15:45 Temperature 97.8 F 99.1 F Pulse Rate 123 H 142 H 145 H Respiratory Rate 43 H 30 H 30 H Blood Pressure 117/96 H 89/58 L Pulse Oximetry 98 Oxygen Delivery Method Oxygen Flow Rate 10/10/21 16:12 10/10/21 16:28 10/10/21 14:40 Temperature 99.1 F 99.1 F Pulse Rate 145 H 145 H 129 H Respiratory Rate 30 H 30 H 35 H Blood Pressure 125/83 Pulse Oximetry 98 Oxygen Delivery Method Oxygen Flow Rate 10/10/21 14:50 10/10/21 15:00 10/10/21 15:10 Temperature Pulse Rate 132 H 134 H 135 H Respiratory Rate 32 H 32 H 41 H Blood Pressure Pulse Oximetry 99 97 97 Oxygen Delivery Method Oxygen Flow Rate 10/10/21 15:20 10/10/21 15:26 10/10/21 15:26 Temperature Pulse Rate 137 H 139 H Respiratory Rate 35 H 40 H Blood Pressure 117/96 H Pulse Oximetry 97 97 Oxygen Delivery Method Oxygen Flow Rate 10/10/21 15:30 10/10/21 15:40 10/10/21 15:47 Temperature Pulse Rate 138 H 142 H Respiratory Rate 35 H 32 H Blood Pressure 89/58 L Pulse Oximetry 97 97 Oxygen Delivery Method Oxygen Flow Rate 10/10/21 15:47 10/10/21 15:50 10/10/21 16:26 Temperature Pulse Rate 143 H 143 H 146 H Respiratory Rate 34 H 32 H 32 H Blood Pressure 125/83 Pulse Oximetry 97 97 97 Oxygen Delivery Method Room Air Oxygen Flow Rate 10/10/21 16:45 10/10/21 17:01 10/10/21 17:21 Temperature 99.8 F H 100.5 F H Pulse Rate 143 H 145 H Respiratory Rate 31 H 32 H Blood Pressure 120/75 105/59 L Pulse Oximetry 97 96 Oxygen Delivery Method Room Air Oxygen Flow Rate 10/10/21 17:31 10/10/21 17:52 10/10/21 18:01 Temperature 100.8 F H 102.6 F H 102.1 F H Pulse Rate 145 H 124 H Respiratory Rate 30 H 29 H Blood Pressure 131/56 L 137/45 L Pulse Oximetry 94 92 Oxygen Delivery Method Room Air Room Air Oxygen Flow Rate 10/10/21 18:10 10/10/21 18:12 10/10/21 18:12 Temperature Pulse Rate 125 H 123 H Respiratory Rate 34 H 26 H Blood Pressure 63/33 L Pulse Oximetry 91 93 Oxygen Delivery Method Oxygen Flow Rate 10/10/21 18:14 10/10/21 18:14 10/10/21 18:27 Temperature Pulse Rate 122 H 120 H Respiratory Rate 24 24 Blood Pressure 58/34 L 58/37 L Pulse Oximetry 93 92 Oxygen Delivery Method Room Air Oxygen Flow Rate 10/10/21 18:34 10/10/21 18:40 10/10/21 19:00 Temperature 99 F Pulse Rate 118 H 114 H 109 H Respiratory Rate 23 22 21 Blood Pressure 64/38 L 66/42 L 66/45 L Pulse Oximetry 93 93 93 Oxygen Delivery Method Room Air Oxygen Flow Rate 10/10/21 19:20 10/10/21 19:49 10/10/21 19:50 Temperature Pulse Rate 108 H 107 H 105 H Respiratory Rate 21 26 H 25 H Blood Pressure 69/44 L Pulse Oximetry 93 95 95 Oxygen Delivery Method Room Air Oxygen Flow Rate 10/10/21 19:53 10/10/21 19:53 10/10/21 19:55 Temperature Pulse Rate 104 H Respiratory Rate 30 H Blood Pressure 68/42 L 66/40 L Pulse Oximetry 95 Oxygen Delivery Method Oxygen Flow Rate 10/10/21 19:55 10/10/21 19:57 10/10/21 19:57 Temperature Pulse Rate 106 H 104 H Respiratory Rate 23 22 Blood Pressure 75/49 L Pulse Oximetry 94 95 Oxygen Delivery Method Oxygen Flow Rate 10/10/21 20:00 10/10/21 20:00 10/10/21 20:10 Temperature Pulse Rate 101 H 102 H Respiratory Rate 19 18 Blood Pressure 74/50 L Pulse Oximetry 95 96 Oxygen Delivery Method Oxygen Flow Rate 10/10/21 20:15 10/10/21 20:15 10/10/21 20:20 Temperature Pulse Rate 103 H 102 H Respiratory Rate 20 19 Blood Pressure 73/49 L Pulse Oximetry 95 95 Oxygen Delivery Method Oxygen Flow Rate 10/10/21 20:30 10/10/21 20:30 Temperature Pulse Rate 101 H Respiratory Rate 19 Blood Pressure 74/48 L Pulse Oximetry 95 Oxygen Delivery Method Oxygen Flow Rate Oxygen Delivery Method Room Air Oxygen Flow Rate 2 Const General: comfortable Resp Effort & Inspection: normal respiratory effort Cardio Rate: tachycardic Rhythm: regular rhythm Objective Labs Result Diagrams: 10/10/21 16:08 10/10/21 12:15 Labs: Laboratory Results - last 24 hr 10/10/21 10/10/21 10/10/21 12:02 12:06 12:08 WBC RBC Hgb Hct MCV MCH MCHC RDW Plt Count Neut % (Auto) Lymph % (Auto) [place] % (Auto) Eos % (Auto) Baso % (Auto) Neut # (Auto) Lymph # (Auto) [place] # (Auto) Eos # (Auto) Baso # (Auto) PT INR APTT Sodium Potassium Chloride Carbon Dioxide BUN Creatinine Estimated GFR BUN/Creatinine Ratio Glucose Lactate Calcium Total Bilirubin AST ALT Alkaline Phosphatase Total Creatine Kinase 67 CK-MB (CK-2) TNP CK-MB (CK-2) Rel Index TNP Troponin I 2.640 H* NT-Pro-B Natriuret Pep 6200 H Total Protein Albumin Globulin Albumin/Globulin Ratio Lipase Procalcitonin Urine Color Straw Urine Appearance Clear Urine pH 7.5 Ur Specific [place] 1.010 Urine Protein Negative Urine Glucose (UA) Negative Urine Ketones Negative Urine Occult Blood 1+ H Urine Nitrate Positive H Urine Bilirubin Negative Urine Urobilinogen 0.2 Ur Leukocyte Esterase 1+ H Urine RBC 0-1/hpf Urine WBC 1-5/hpf Ur Squamous Epith Cells 0-1 /hpf Amorphous Sediment 1+ Urine Bacteria Many (>30) H Ur Culture Indicated? Specimen cultured SARS-CoV-2 (PCR) Negative Blood Type Antibody Screen Crossmatch 10/10/21 10/10/21 10/10/21 12:15 12:15 12:15 WBC 10.7 RBC 3.19 L Hgb 8.2 L Hct 25.2 L MCV 78.9 L MCH 25.7 L MCHC 32.6 RDW 17.6 H Plt Count 369 Neut % (Auto) 74.7 Lymph % (Auto) 12.7 L [place] % (Auto) 9.6 Eos % (Auto) 2.3 Baso % (Auto) 0.7 Neut # (Auto) 8000 H Lymph # (Auto) 1400 [place] # (Auto) 1000 H Eos # (Auto) 200 Baso # (Auto) 100 PT 20.6 H INR 1.8 H APTT Sodium 134 L Potassium 3.3 L Chloride 102 Carbon Dioxide 28 BUN 37 H Creatinine 1.01 Estimated GFR > 60 BUN/Creatinine Ratio 36.6 H Glucose 110 Lactate Calcium 7.1 L Total Bilirubin 0.3 AST 28 ALT 11 Alkaline Phosphatase 57 Total Creatine Kinase CK-MB (CK-2) CK-MB (CK-2) Rel Index Troponin I NT-Pro-B Natriuret Pep Total Protein 5.2 L Albumin 2.3 L Globulin 2.9 Albumin/Globulin Ratio 0.8 L Lipase 84 Procalcitonin 0.11 Urine Color Urine Appearance Urine pH Ur Specific [place] Urine Protein Urine Glucose (UA) Urine Ketones Urine Occult Blood Urine Nitrate Urine Bilirubin Urine Urobilinogen Ur Leukocyte Esterase Urine RBC Urine WBC Ur Squamous Epith Cells Amorphous Sediment Urine Bacteria Ur Culture Indicated? SARS-CoV-2 (PCR) Blood Type Antibody Screen Crossmatch 10/10/21 10/10/21 10/10/21 12:15 12:15 14:08 WBC RBC Hgb Hct MCV MCH MCHC RDW Plt Count Neut % (Auto) Lymph % (Auto) [place] % (Auto) Eos % (Auto) Baso % (Auto) Neut # (Auto) Lymph # (Auto) [place] # (Auto) Eos # (Auto) Baso # (Auto) PT INR APTT 32 Sodium Potassium Chloride Carbon Dioxide BUN Creatinine Estimated GFR BUN/Creatinine Ratio Glucose Lactate 2.0 Calcium Total Bilirubin AST ALT Alkaline Phosphatase Total Creatine Kinase CK-MB (CK-2) CK-MB (CK-2) Rel Index Troponin I NT-Pro-B Natriuret Pep Total Protein Albumin Globulin Albumin/Globulin Ratio Lipase Procalcitonin Urine Color Urine Appearance Urine pH Ur Specific [place] Urine Protein Urine Glucose (UA) Urine Ketones Urine Occult Blood Urine Nitrate Urine Bilirubin Urine Urobilinogen Ur Leukocyte Esterase Urine RBC Urine WBC Ur Squamous Epith Cells Amorphous Sediment Urine Bacteria Ur Culture Indicated? SARS-CoV-2 (PCR) Blood Type AB Positive Antibody Screen Negative Crossmatch See Detail 10/10/21 10/10/21 10/10/21 15:50 15:50 16:08 WBC RBC Hgb 9.5 L 10.0 L Hct 29.0 L 30.6 L MCV MCH MCHC RDW Plt Count Neut % (Auto) Lymph % (Auto) [place] % (Auto) Eos % (Auto) Baso % (Auto) Neut # (Auto) Lymph # (Auto) [place] # (Auto) Eos # (Auto) Baso # (Auto) PT INR APTT Sodium Potassium Chloride Carbon Dioxide BUN Creatinine Estimated GFR BUN/Creatinine Ratio Glucose Lactate 2.7 H Calcium Total Bilirubin AST ALT Alkaline Phosphatase Total Creatine Kinase CK-MB (CK-2) CK-MB (CK-2) Rel Index Troponin I NT-Pro-B Natriuret Pep Total Protein Albumin Globulin Albumin/Globulin Ratio Lipase Procalcitonin Urine Color Urine Appearance Urine pH Ur Specific [place] Urine Protein Urine Glucose (UA) Urine Ketones Urine Occult Blood Urine Nitrate Urine Bilirubin Urine Urobilinogen Ur Leukocyte Esterase Urine RBC Urine WBC Ur Squamous Epith Cells Amorphous Sediment Urine Bacteria Ur Culture Indicated? SARS-CoV-2 (PCR) Blood Type Antibody Screen Crossmatch 10/10/21 18:23 WBC RBC Hgb Hct MCV MCH MCHC RDW Plt Count Neut % (Auto) Lymph % (Auto) [place] % (Auto) Eos % (Auto) Baso % (Auto) Neut # (Auto) Lymph # (Auto) [place] # (Auto) Eos # (Auto) Baso # (Auto) PT INR APTT Sodium Potassium Chloride Carbon Dioxide BUN Creatinine Estimated GFR BUN/Creatinine Ratio Glucose Lactate 2.6 H Calcium Total Bilirubin AST ALT Alkaline Phosphatase Total Creatine Kinase CK-MB (CK-2) CK-MB (CK-2) Rel Index Troponin I NT-Pro-B Natriuret Pep Total Protein Albumin Globulin Albumin/Globulin Ratio Lipase Procalcitonin Urine Color Urine Appearance Urine pH Ur Specific [place] Urine Protein Urine Glucose (UA) Urine Ketones Urine Occult Blood Urine Nitrate Urine Bilirubin Urine Urobilinogen Ur Leukocyte Esterase Urine RBC Urine WBC Ur Squamous Epith Cells Amorphous Sediment Urine Bacteria Ur Culture Indicated? SARS-CoV-2 (PCR) Blood Type Antibody Screen Crossmatch Assessment & Plan Assessment and plan (1) Septic shock: Status: Acute Plan: -Continue NE -If NE >= 15 mcg/min, start vasopressin -Continue ceftriaxone -Add Flagyl given possible proctitis (2) Abnormal urinalysis: Status: Acute Plan: -See septic shock (3) Elevated troponin: Status: Acute Plan: -Probably due to septic shock and known CAD-->trend troponin, restart outpt statin, start ASA, check 2-D echo (4) History of coronary artery disease: Status: Acute Plan: -See problem #3 (5) Hypokalemia: Status: Acute Plan: -Correct (6) Pulmonary nodules: Status: Acute Plan: -Outpt follow-up (7) Cholelithiasis: Qualifiers: Cholelithiasis location: gallbladder Cholecystitis presence: without cholecystitis Status: Acute Plan: -Outpt follow-up (8) Elevated brain natriuretic peptide (BNP) level: Status: Acute Plan: -See problem 3 Time Spent With Patient Critical Care time: I spent a total of 35 minutes of critical care time on this patient's care today; this time is exclusive of procedural time.
[2021-10-10] MEDS: POTASSIUM CHLORIDE IN WATER 10 MEQ/100 ML PIGGYBACK 100 MEQ IV ×2 (20:54→21:50)
[2021-10-10] MEDS: metroNIDAZOLE 500 MG/100 ML PIGGYBACK 100 MG IV (21:08)
[2021-10-10 21:26] LABS: Magnesium 1.6 mg/dL (1.6-2.3)
[2021-10-10] MEDS: LACTATED RINGERS 1,000 ML 1000 ML IV (21:30)
[2021-10-10 21:39] LABS: NT-proBNP (BNP-Adult 18+) 27700 pg/mL (<450)
--- NOTE | 2021-10-10 21:45 | PM.EICU.INT ---
Teleintensivist Intervention Date/Time Was camera activated?: Yes Issue(s) Addressed Issue(s): Shock/hypotension (pt with worseing BP, sbp 80s. suggest bolus ivf, increase levo, add vaso, stress dose steroids, place a-line, family discussion for goals of care) Other:: risign trop to 4.4 multifactorial ?bleeding, need to hold heparin for now suggest echo/cardio eval poor overall prognosis
[2021-10-10] MEDS: HYDROCORTISONE 100 MG/2 ML VIAL IV (22:07)
[2021-10-10] MEDS: VASOPRESSIN 20 UNIT in SODIUM CHLORIDE 0.9% 100 ML 6.06 UNIT INJ (22:10)
[2021-10-10 23:34] LABS: C-Reactive Protein Quant 5.7 mg/dL (<1.0)
[2021-10-10] MEDS: MORPHINE 2 MG/ML INJ IV (23:54)
[2021-10-11] VITALS (41 sets, daily range): BP systolic 66–84; BP diastolic 41–51; PULSE 62–87; RESP 9–17; TEMP 36.5; O2SAT 94–97
[2021-10-11] MEDS: MORPHINE 2 MG/ML INJ IV ×7 (01:04→20:43)
--- NOTE | 2021-10-11 02:09 | PC.NURSE ---
Addendum entered by Tesha Ta R.N. 10/11/21 07:28: Continued to give morphine IV for comfort with good effect. HR 60s, BP remains 70s/40s MAP<60, intermittently responsive and able to assist with turning, incontinent small black tarry BM. Family at bedside. Original Note: Shift Note-Patient admitted to ICU Room 227 at 1940. Initially able make needs known with short sentences and and aware he is in the hospital Levophed gtt at 8mcg/min, BP 74/50(58), ST 104, Temp 99.2, RR 20, SpO2 96% on RA. K+ riders and Flagyl started, titrating up but BP staying 70s/40s MAP 50s, [employer]CEPTION[employer] CHIL[employer] TE[employer]ER and Tele Hospice Care Consultant notified, orders received to give LR liter bolus, start vasopressin, and start hydrocortisone with no change to BP. Patients mentation also declined, unable to speak or follow commands. Family called at 2155, updated on patient status. arrived with daughter and son-in-law at 2240. IV fluids and vasopressors DC'd per family wishes, morphine and Ativan ordered for comfort.
--- NOTE | 2021-10-11 04:08 | PM.HP.1 ---
History of Present Illness History of Present Illness Date Patient Seen: 10/10/21 Time Patient Seen: 20:38 Chief complaint: hypotensive/sepsis/dark urine Narrative: Patient is a 85-year-old male history of bladder cancer with urostomy, prostate cancer, thyroid cancer, coronary artery disease, hypertension, peripheral neuropathy with tibial plateau fracture on 06/27/2021.? He was admitted to the hospital until 07/01/2021 when he was discharged repair of this long-term care facility where he stayed for 100 days.? He was released to home 24 hours ago with home health care set up.? Today family noted that urine was very dark and he was weaker than normal.? Patient was initially awake alert oriented when he first arrived on the floor for admit, and really has no complaints. Upon Admit b/p was hypotensive BP 69/40 for with a map of 58. Levophed was initiated, echo was ordered, and troponins, potassium was 3.3, K rider 40 mEq was ordered. Flagyl for possible proctitis. Tele ICU Dr. Beaver was consulted. Very quickly the patient was on 12 of Levophed, so vasopressin was added in addition to steroids. Patient's decreased level of consciousness prohibiting him from participating in a HPI or ROS. Patient was afebrile, and able to denie any pain or shortness of breath.?Patient's cognitive function deteriorated and was only able to answer he was not in pain but was not orientated. Patient's family was contacted, and came to the patient's bedside. Upon arriving I had an in-depth discussion with family regarding options of continued medical intervention, and further treatment options. The patient's daughter and requested that active medical care be removed and comfort care put in place. Patient was initially admitted for septic shock due to UTI and hypokalemia to the ICU, patient was then change to end of life comfort measures per family's request. Patient History Medical History Bladder cancer Closed right humeral fracture Coronary artery disease Hypertension Hyponatremia Hypothyroid Kidney stones Prostate cancer Thyroid cancer Surgical History H/O colectomy H/O thyroidectomy History of appendectomy History of urostomy S/P hip replacement Family & Social History Family History Father Alcoholism Mother Alcoholism Social History: household members spouse Prior Living Arrangements House Safety & Behavioral: Feels Safe in Current Yes Environment Been Physically Hurt or No Threatened By a Person Tobacco & Substance use: Smoking Status Former smoker alcohol intake former alcohol intake frequency other Substance Use Type does not use Meds Home Medications and Allergies Home Medications Medication Instructions Recorded Confirmed Type aspirin 81 mg tablet,delayed 1 tab PO DAILY 11/07/17 06/29/21 History release atorvastatin 40 mg tablet 1 tab PO BEDTIME 11/07/17 06/29/21 History docusate sodium 100 mg tablet 100 mg PO BID 06/11/18 06/29/21 History metoprolol succinate 25 mg 1 tab PO DAILY 06/11/18 06/29/21 History tablet,extended release 24 hr levothyroxine 200 mcg tablet 200 mcg PO 0708/09/18 06/29/21 History apixaban 5 mg tablet (Eliquis) 5 mg PO DAILY 10/31/19 06/29/21 History [id number] 200 mcg-vit K 100 1 cap PO DAILY 10/31/19 06/29/21 History mcg-lycop 500 [id number] capsule (Daily Multivitamin) calcium carbonate 500 mg-vitamin 1 ea PO BIDWM #60 tabs 11/05/19 06/29/21 Rx D3 5 mcg (200 unit) tablet (Oyster Shell Calcium-Vitamin D3) ferrous gluconate 324 mg (38 mg 324 mg PO DAILY #30 tabs 11/05/19 06/29/21 Rx iron) tablet sodium chloride 1 g PO DAILY 11/05/19 06/29/21 History acetaminophen 325 mg tablet 975 mg PO TID PRN pain #90 tabs 07/01/21 06/29/21 Rx Allergies Allergy/AdvReac Type Severity Reaction Status Date / Time No Known Drug Allergies Allergy Verified 03/26/20 14:22 Review of Systems Review of Systems Narrative: All 12 point systems reviewed with the patient and are negative except otherwise documented. Exam Vital Signs (past 8 hours): - 10/10/21 20:10 10/10/21 20:15 10/10/21 20:15 Temperature Pulse Rate 102 H 103 H Respiratory Rate 18 20 Blood Pressure 73/49 L Pulse Oximetry 96 95 10/10/21 20:20 10/10/21 20:30 10/10/21 20:30 Temperature Pulse Rate 102 H 101 H Respiratory Rate 19 19 Blood Pressure 74/48 L Pulse Oximetry 95 95 10/10/21 20:40 10/10/21 20:45 10/10/21 20:45 Temperature Pulse Rate 100 H 102 H Respiratory Rate 18 21 Blood Pressure 73/48 L Pulse Oximetry 95 96 10/10/21 20:50 10/10/21 21:00 10/10/21 21:00 Temperature Pulse Rate 100 H 99 H Respiratory Rate 19 20 Blood Pressure 73/49 L Pulse Oximetry 95 96 10/10/21 21:10 10/10/21 21:15 10/10/21 21:15 Temperature Pulse Rate 100 H 97 H Respiratory Rate 21 17 Blood Pressure 68/44 L Pulse Oximetry 95 95 10/10/21 21:18 10/10/21 21:18 10/10/21 21:20 Temperature Pulse Rate 97 H Respiratory Rate 18 Blood Pressure 67/47 L 70/45 L Pulse Oximetry 96 10/10/21 21:20 10/10/21 21:30 10/10/21 21:30 Temperature Pulse Rate 98 H 94 H Respiratory Rate 19 18 Blood Pressure 70/44 L Pulse Oximetry 96 96 10/10/21 21:40 10/10/21 21:45 10/10/21 21:45 Temperature Pulse Rate 92 H 91 H Respiratory Rate 18 17 Blood Pressure 70/43 L Pulse Oximetry 96 96 10/10/21 21:50 10/10/21 22:00 10/10/21 22:00 Temperature 99.2 F Pulse Rate 90 90 Respiratory Rate 17 12 Blood Pressure 72/48 L Pulse Oximetry 95 93 10/10/21 22:10 10/10/21 22:15 10/10/21 22:15 Temperature Pulse Rate 87 85 Respiratory Rate 17 16 Blood Pressure 75/51 L Pulse Oximetry 96 96 10/10/21 22:20 10/10/21 22:30 10/10/21 22:30 Temperature Pulse Rate 83 80 Respiratory Rate 16 17 Blood Pressure 75/50 L Pulse Oximetry 96 96 10/10/21 22:40 10/10/21 22:45 10/10/21 22:45 Temperature Pulse Rate 81 81 Respiratory Rate 16 20 Blood Pressure 74/50 L Pulse Oximetry 96 96 10/10/21 22:50 10/10/21 23:00 10/10/21 23:10 Temperature Pulse Rate 80 87 89 Respiratory Rate 18 17 22 Blood Pressure Pulse Oximetry 96 96 96 10/10/21 23:18 10/10/21 23:18 10/10/21 23:20 Temperature Pulse Rate 88 90 Respiratory Rate 17 18 Blood Pressure 63/40 L Pulse Oximetry 95 96 10/10/21 23:30 10/10/21 23:40 10/10/21 23:50 Temperature Pulse Rate 88 89 88 Respiratory Rate 16 16 16 Blood Pressure Pulse Oximetry 96 96 96 10/11/21 00:00 10/11/21 00:10 10/11/21 00:20 Temperature Pulse Rate 87 84 82 Respiratory Rate 17 14 14 Blood Pressure Pulse Oximetry 96 95 95 10/11/21 00:30 10/11/21 00:40 10/11/21 00:50 Temperature Pulse Rate 82 79 79 Respiratory Rate 13 11 L 14 Blood Pressure Pulse Oximetry 96 94 96 10/11/21 01:00 10/11/21 01:10 10/11/21 01:20 Temperature Pulse Rate 78 77 75 Respiratory Rate 14 16 12 Blood Pressure Pulse Oximetry 95 96 96 10/11/21 01:30 10/11/21 01:40 10/11/21 01:50 Temperature Pulse Rate 73 72 71 Respiratory Rate 12 11 L 11 L Blood Pressure Pulse Oximetry 96 96 96 10/11/21 02:00 10/11/21 02:10 10/11/21 02:20 Temperature Pulse Rate 71 70 69 Respiratory Rate 11 L 11 L 10 L Blood Pressure Pulse Oximetry 96 97 96 10/11/21 02:23 10/11/21 02:23 10/11/21 02:30 Temperature Pulse Rate 71 70 Respiratory Rate 10 L 10 L Blood Pressure 66/41 L Pulse Oximetry 96 97 10/11/21 02:40 10/11/21 02:50 10/11/21 03:00 Temperature Pulse Rate 70 68 67 Respiratory Rate 11 L 12 11 L Blood Pressure Pulse Oximetry 97 97 96 10/11/21 03:10 10/11/21 03:20 10/11/21 03:30 Temperature Pulse Rate 67 66 66 Respiratory Rate 10 L 11 L 11 L Blood Pressure Pulse Oximetry 96 96 96 10/11/21 03:40 10/11/21 03:50 10/11/21 04:00 Temperature Pulse Rate 66 66 66 Respiratory Rate 11 L 11 L 10 L Blood Pressure Pulse Oximetry 96 96 96 Oxygen Delivery Method Room Air Oxygen Flow Rate 2 Narrative Exam Narrative: GENERAL:? very pale, intermittently rousable, decreased consciousness, elderly male, who appears in no distress or discomfort at this time. HEENT: Head atraumatic, face symmetric, dry mucous membranes CARDIOVASCULAR: Bradycardic Regular rate and rhythm without murmurs, rubs or gallops. RESPIRATORY: Breath sounds greatly decreased, coarse equal bilaterally, no wheezes rales or rhonchi. ABDOMEN: Soft, nontender.? Normoactive bowel sounds all 4 quadrants.? No guarding or rebound.?Rt lower quadrant Urostomy with bag that is purple in color. EXTREMITIES: no clubbing or edema.? Neurovascularly intact, peripheral pulses intact Right lower extremity in knee immobilizer no significant swelling. NEUROLOGICAL: Arousable, quickly falling back asleep unable to verbalize orientation, only able to deny pain or discomfort. SKIN: Very pale with slight bluish discoloration around mouth denies, Warm, dry, with the exception of diaphoresis to trunk, no laceration, no petechiae, no rashes or lesions. Objective Labs Result Diagrams: 10/10/21 16:08 10/10/21 12:15 Labs: Laboratory Results - last 24 hr 10/10/21 10/10/21 10/10/21 12:02 12:06 12:08 WBC RBC Hgb Hct MCV MCH MCHC RDW Plt Count Neut % (Auto) Lymph % (Auto) [place] % (Auto) Eos % (Auto) Baso % (Auto) Neut # (Auto) Lymph # (Auto) [place] # (Auto) Eos # (Auto) Baso # (Auto) PT INR APTT Sodium Potassium Chloride Carbon Dioxide BUN Creatinine Estimated GFR BUN/Creatinine Ratio Glucose Lactate Calcium Magnesium Total Bilirubin AST ALT Alkaline Phosphatase Total Creatine Kinase 67 CK-MB (CK-2) TNP CK-MB (CK-2) Rel Index TNP Troponin I 2.640 H* C-Reactive Protein NT-Pro-B Natriuret Pep 6200 H Total Protein Albumin Globulin Albumin/Globulin Ratio Lipase Procalcitonin Urine Color Straw Urine Appearance Clear Urine pH 7.5 Ur Specific [place] 1.010 Urine Protein Negative Urine Glucose (UA) Negative Urine Ketones Negative Urine Occult Blood 1+ H Urine Nitrate Positive H Urine Bilirubin Negative Urine Urobilinogen 0.2 Ur Leukocyte Esterase 1+ H Urine RBC 0-1/hpf Urine WBC 1-5/hpf Ur Squamous Epith Cells 0-1 /hpf Amorphous Sediment 1+ Urine Bacteria Many (>30) H Ur Culture Indicated? Specimen cultured Nasal Screen MRSA (PCR) SARS-CoV-2 (PCR) Negative Blood Type Antibody Screen Crossmatch 10/10/21 10/10/21 10/10/21 12:15 12:15 12:15 WBC 10.7 RBC 3.19 L Hgb 8.2 L Hct 25.2 L MCV 78.9 L MCH 25.7 L MCHC 32.6 RDW 17.6 H Plt Count 369 Neut % (Auto) 74.7 Lymph % (Auto) 12.7 L [place] % (Auto) 9.6 Eos % (Auto) 2.3 Baso % (Auto) 0.7 Neut # (Auto) 8000 H Lymph # (Auto) 1400 [place] # (Auto) 1000 H Eos # (Auto) 200 Baso # (Auto) 100 PT 20.6 H INR 1.8 H APTT Sodium 134 L Potassium 3.3 L Chloride 102 Carbon Dioxide 28 BUN 37 H Creatinine 1.01 Estimated GFR > 60 BUN/Creatinine Ratio 36.6 H Glucose 110 Lactate Calcium 7.1 L Magnesium Total Bilirubin 0.3 AST 28 ALT 11 Alkaline Phosphatase 57 Total Creatine Kinase CK-MB (CK-2) CK-MB (CK-2) Rel Index Troponin I C-Reactive Protein NT-Pro-B Natriuret Pep Total Protein 5.2 L Albumin 2.3 L Globulin 2.9 Albumin/Globulin Ratio 0.8 L Lipase 84 Procalcitonin 0.11 Urine Color Urine Appearance Urine pH Ur Specific [place] Urine Protein Urine Glucose (UA) Urine Ketones Urine Occult Blood Urine Nitrate Urine Bilirubin Urine Urobilinogen Ur Leukocyte Esterase Urine RBC Urine WBC Ur Squamous Epith Cells Amorphous Sediment Urine Bacteria Ur Culture Indicated? Nasal Screen MRSA (PCR) SARS-CoV-2 (PCR) Blood Type Antibody Screen Crossmatch 10/10/21 10/10/21 10/10/21 12:15 12:15 14:08 WBC RBC Hgb Hct MCV MCH MCHC RDW Plt Count Neut % (Auto) Lymph % (Auto) [place] % (Auto) Eos % (Auto) Baso % (Auto) Neut # (Auto) Lymph # (Auto) [place] # (Auto) Eos # (Auto) Baso # (Auto) PT INR APTT 32 Sodium Potassium Chloride Carbon Dioxide BUN Creatinine Estimated GFR BUN/Creatinine Ratio Glucose Lactate 2.0 Calcium Magnesium Total Bilirubin AST ALT Alkaline Phosphatase Total Creatine Kinase CK-MB (CK-2) CK-MB (CK-2) Rel Index Troponin I C-Reactive Protein NT-Pro-B Natriuret Pep Total Protein Albumin Globulin Albumin/Globulin Ratio Lipase Procalcitonin Urine Color Urine Appearance Urine pH Ur Specific [place] Urine Protein Urine Glucose (UA) Urine Ketones Urine Occult Blood Urine Nitrate Urine Bilirubin Urine Urobilinogen Ur Leukocyte Esterase Urine RBC Urine WBC Ur Squamous Epith Cells Amorphous Sediment Urine Bacteria Ur Culture Indicated? Nasal Screen MRSA (PCR) SARS-CoV-2 (PCR) Blood Type AB Positive Antibody Screen Negative Crossmatch See Detail 10/10/21 10/10/21 10/10/21 15:50 15:50 16:08 WBC RBC Hgb 9.5 L 10.0 L Hct 29.0 L 30.6 L MCV MCH MCHC RDW Plt Count Neut % (Auto) Lymph % (Auto) [place] % (Auto) Eos % (Auto) Baso % (Auto) Neut # (Auto) Lymph # (Auto) [place] # (Auto) Eos # (Auto) Baso # (Auto) PT INR APTT Sodium Potassium Chloride Carbon Dioxide BUN Creatinine Estimated GFR BUN/Creatinine Ratio Glucose Lactate 2.7 H Calcium Magnesium Total Bilirubin AST ALT Alkaline Phosphatase Total Creatine Kinase CK-MB (CK-2) CK-MB (CK-2) Rel Index Troponin I C-Reactive Protein NT-Pro-B Natriuret Pep Total Protein Albumin Globulin Albumin/Globulin Ratio Lipase Procalcitonin Urine Color Urine Appearance Urine pH Ur Specific [place] Urine Protein Urine Glucose (UA) Urine Ketones Urine Occult Blood Urine Nitrate Urine Bilirubin Urine Urobilinogen Ur Leukocyte Esterase Urine RBC Urine WBC Ur Squamous Epith Cells Amorphous Sediment Urine Bacteria Ur Culture Indicated? Nasal Screen MRSA (PCR) SARS-CoV-2 (PCR) Blood Type Antibody Screen Crossmatch 10/10/21 10/10/21 10/10/21 18:23 20:06 21:07 WBC RBC Hgb Hct MCV MCH MCHC RDW Plt Count Neut % (Auto) Lymph % (Auto) [place] % (Auto) Eos % (Auto) Baso % (Auto) Neut # (Auto) Lymph # (Auto) [place] # (Auto) Eos # (Auto) Baso # (Auto) PT INR APTT Sodium Potassium Chloride Carbon Dioxide BUN Creatinine Estimated GFR BUN/Creatinine Ratio Glucose Lactate 2.6 H Calcium Magnesium 1.6 Total Bilirubin AST ALT Alkaline Phosphatase Total Creatine Kinase CK-MB (CK-2) CK-MB (CK-2) Rel Index Troponin I C-Reactive Protein 5.7 H NT-Pro-B Natriuret Pep Total Protein Albumin Globulin Albumin/Globulin Ratio Lipase Procalcitonin Urine Color Urine Appearance Urine pH Ur Specific [place] Urine Protein Urine Glucose (UA) Urine Ketones Urine Occult Blood Urine Nitrate Urine Bilirubin Urine Urobilinogen Ur Leukocyte Esterase Urine RBC Urine WBC Ur Squamous Epith Cells Amorphous Sediment Urine Bacteria Ur Culture Indicated? Nasal Screen MRSA (PCR) Negative for mrsa SARS-CoV-2 (PCR) Blood Type Antibody Screen Crossmatch 10/10/21 21:07 WBC RBC Hgb Hct MCV MCH MCHC RDW Plt Count Neut % (Auto) Lymph % (Auto) [place] % (Auto) Eos % (Auto) Baso % (Auto) Neut # (Auto) Lymph # (Auto) [place] # (Auto) Eos # (Auto) Baso # (Auto) PT INR APTT Sodium Potassium Chloride Carbon Dioxide BUN Creatinine Estimated GFR BUN/Creatinine Ratio Glucose Lactate Calcium Magnesium Total Bilirubin AST ALT Alkaline Phosphatase Total Creatine Kinase CK-MB (CK-2) CK-MB (CK-2) Rel Index Troponin I 4.490 H* C-Reactive Protein NT-Pro-B Natriuret Pep 30841 H Total Protein Albumin Globulin Albumin/Globulin Ratio Lipase Procalcitonin Urine Color Urine Appearance Urine pH Ur Specific [place] Urine Protein Urine Glucose (UA) Urine Ketones Urine Occult Blood Urine Nitrate Urine Bilirubin Urine Urobilinogen Ur Leukocyte Esterase Urine RBC Urine WBC Ur Squamous Epith Cells Amorphous Sediment Urine Bacteria Ur Culture Indicated? Nasal Screen MRSA (PCR) SARS-CoV-2 (PCR) Blood Type Antibody Screen Crossmatch Assessment & Plan Assessment & Plan narrative: Francisco J Albarran is an 85 y.o. male with a past medical history significant for bladder cancer status post ileocecal conduit with urostomy, prostate cancer, thyroid cancer status post thyroidectomy, hypothyroidism, nephrolithiasis, coronary artery disease, hypertension, vertigo, peripheral neuropathy and long-term anticoagulation, recent right tibial plateau fracture nondisplaced on 06/27/2021.? He was admitted to the hospital until 07/01/2021 when he was discharged to a long-term care facility where he stayed for 100 days.? He was released to home 24 hours ago with home health, at which point the family states that the patient quickly deteriorated and was brought into the ED. initially the patient was suspected of having a GI bleed and was treated as such and given 1 unit of blood. The patient did not appear to have a GI bleed and fact was found to have a UTI and was in Setic shock, also possible proctitis. Upon admit to the floor patient was treated for septic shock, UTI, hypokalemia and proctitis. Due to patient's failure to respond positively to Levophed and vasopressin, and fluids the family determined that they wanted to remove aggressive medical care, and change the patient to comfort measures only. 1.Comfort measures initiated-End of Life Care -Hospice consult ordered 2. Septic shock with severe hypotension secondary to UTI, possible proctitis, acute, present on admission -initial fluid resuscitation in ED, Rocephin 2 g, Flagyl, central line placement, vasopressin, Levophed, steroids, tele ICU consult -patient was also initially worked up for possible GI bleed was given prothrombin complex to reverse Eliquis, and 1 unit of blood. Through further evaluation it was determined patient did not in fact have a GI bleed. -measures stopped per family request. Comfort measures initiated-End of Life Care -Hospice consult ordered 3. Hypokalemia, acute, present on admission -potassium 3.3-40 mEq potassium K rider ordered 4. Hypertension, chronic, present on admission -all blood pressure medications were held due to severe hypotension 5. Coronary artery disease, chronic, in the setting of hyperlipidemia, chronic present on admission -stopped Eliquis, metoprolol, atorvastatin 6. Hypothyroidism secondary to thyroidectomy due to thyroid cancer, chronic, present on admission -Levothyroid stopped 7. Post ileocecal conduit with urostomy bag secondary to bladder a prostate cancer, chronic, present on admission -urostomy bag management Code status:DNR/DNI Surrogate decision maker: Yael BROWNING PCR:Negative DVT/VTE prophylaxis:Interventions held initially due to possible GI Bleed, Disposition: Patient id originally admitted to the ICU full admit, expected length of stay greater than 2 midnight. I have utilized all available immediate resources to obtain, update, or review the patient's current medications. Exception-the patient is not eligible for medication reconciliation; the patient is in an emergent medical situation were delaying treatment would jeopardize the patient's health. I confirmed that the patient's advanced care plan is present, Code status is documented and/or surrogate decision maker is listed in the patient's medical record. Time Spent With Patient Critical Care time: I spent a total of [] minutes of critical care time on this patient's care today; this time is exclusive of procedural time. Quality VTE Deep Vein Thrombosis/Pulmonary Embolism Present on Admission: No
--- NOTE | 2021-10-11 14:55 | CM.DPNOTE ---
Faxed referral to [facility] and rec. conf. Neyda Carey CM Assist
--- NOTE | 2021-10-11 16:19 | PM.PN.1 ---
Subjective Subjective Date Patient Seen: 10/11/21 Time Patient Seen: 08:00 Interval history: Family at bedside. Patient appears comfortable. He has no complaints. Family questions answered. They do not think they can take care of him at home. Exam Vital Signs (past 8 hours): - 10/11/21 10:00 Oxygen Delivery Method Room Air Oxygen Delivery Method Room Air Oxygen Flow Rate 2 Narrative Exam Narrative: GENERAL:?arousable to voice, but mostly sleepy, appears comfortable CV: regular rate and rhythm PULM: clear bilaterally Objective Labs Result Diagrams: 10/10/21 16:08 10/10/21 12:15 Labs: Laboratory Results - last 24 hr 10/10/21 10/10/21 10/10/21 14:08 16:08 18:23 Hgb 10.0 L Hct 30.6 L Lactate 2.6 H Magnesium Troponin I C-Reactive Protein NT-Pro-B Natriuret Pep Nasal Screen MRSA (PCR) Crossmatch See Detail 10/10/21 10/10/21 10/10/21 20:06 21:07 21:07 Hgb Hct Lactate Magnesium 1.6 Troponin I 4.490 H* C-Reactive Protein 5.7 H NT-Pro-B Natriuret Pep 41099 H Nasal Screen MRSA (PCR) Negative for mrsa Crossmatch PFS Medical History Bladder cancer Closed right humeral fracture Coronary artery disease Hypertension Hyponatremia Hypothyroid Kidney stones Prostate cancer Thyroid cancer Surgical History H/O colectomy H/O thyroidectomy History of appendectomy History of urostomy S/P hip replacement Family History Father Alcoholism Mother Alcoholism Social History household members: spouse Smoking Status: Former smoker alcohol intake: former substance use type: does not use Assessment & Plan Assessment & Plan narrative: 1. Septic shock 2. UTI, possible proctitis 3. Possible NSTEMI 4. CAD 5. HTN 6. Hypothyroidism Patient was in shock and after attempted resuscitation patient continued to need two vasopressors. Family wanted patient's care to be focused on keeping him comfortable. Hospice referral placed. Comfort order set initiated. Code status:DNR/DNI Time Spent With Patient Critical Care time: I spent a total of [] minutes of critical care time on this patient's care today; this time is exclusive of procedural time. Quality VTE Deep Vein Thrombosis/Pulmonary Embolism Present on Admission: No
--- NOTE | 2021-10-11 16:32 | CM.DPNOTE ---
DCP Note Introduced self and role to patient, spouse Yael and dtr Katie this morning; discussed decision to focus on comfort management and reviewed DCP options Patient was home one evening from [facility] and ended up in the ER, then admitted. Family explain patient has used his 100 days of M[facility] benefit at [facility] and cannot pay privately for care until patient/spouse sell their home Suggested family take patient home w/hospice service and spouse/dtr agreeable, state between spouse, dtr and dtr's we will make it work. Spouse requests initiation of hospice referral and requests a hospital bed be delivered before patient's DC home. Explained that patient's sx are currently well managed ([facility] agrees) and battery loader should not be needed or required before patient's return home, and family agreed. [facility] , spoke w/Sandra at [facility] x2 and she has arranged [facility] to deliver hospital bed tomorrow, Thursday (no deliveries on Sundays) Need to confirm plan w/family by phone Thursday AM and arrange BLS to safely transport patient home to [place]. Plan: DC expected Thursday afternoon/evening once hospital bed can be delivered by [facility], JESSEW RN start of care date unknown (?), via BLS transport (needs to be arranged) JW
--- NOTE | 2021-10-11 18:04 | PC.NURSE ---
Pt has been AO x2 this shift. He is able to state his name, , and knows that he is in a hospital. He is unsure of the situation, date/time, etc. He is making his needs known with clear speech. Remains hypotensive. Denies any dizziness, lightheadedness, chest pain, chest pressure, headache. Reports pain to RLE and RUE r/t fractures, worsening pain with movement. Pt expresses gratitude for PRN pain medications, I haven't felt this much relief in a long time. Plan is for pt to dc home with hospice, potentially tomorrow.
[2021-10-12] MEDS: MORPHINE 2 MG/ML INJ IV ×2 (04:39→12:29)
--- NOTE | 2021-10-12 11:20 | CM.DPC ---
Addendum entered by JUAN Palencia 10/12/21 12:13: ADD: Return call from Dtr Katie stating she was a little nervous about pt discharging home for a couple days without [facility] currently open but SW confirmed with RN pt has minimal care needs as he has just been sleeping and will just need his medications and brief changed for stool as pt already has established urostomy from prior surgery. Dtr states she is aware that pt really wants to be home and around family and therefore they are willing to have pt d/c to home and provide his care and await [facility] on Thursday. PRANAY assisted in getting pt's Rx faxed to [facility] [place] and SW will call [facility] to confirm any out of pocket expense and Dtr aware that the hard script will need to be presented at Pharmacy for the medications. BF Original Note: DCP Discharge Home w/ Hospice Per MD, pt remains medically stable on Comfort Measures to d/c home with family and Hospice referral. PRANAY called [facility] and confirmed DME delivery orders for bed and table were placed yesterday and per [facility] they will deliver around [id number] today to the home. Hospice Info Visit/consents scheduled for 10/15/21 after the holiday weekend and to then open pt to service. PRANAY called pt's spouse Yael and was directed to call their Dtr/DPOA Katie ([phone]) and SW spoke to Katie and she is aware of DME delivery time and SW inquired about transport home via BLS and Katie aware may not be fully covered by insurance and requesting transport be set up around 1700 so that they have bed and house ready for pt's arrival. PRANAY called [facility] and scheduled 1645 transport to home with no stairs and a ramp to enter and completed BLS form for transport and attached the POLST and facesheet for transport crew and placed on chart. PRANAY updated RN, , GLOBE [employer]ER, flume ride operator and called and left a msg with Dtr regarding time of transport and placed copy of Medicare Message in pt d/c packet for home. PRANAY faxed copy of pt medications and d/c summ to [facility] to review. Plan: Patient to d/c to home with Comfort Measures via [facility] at 1645 and [facility] to follow after discharge. JUAN Palencia
--- NOTE | 2021-10-12 13:46 | PC.NURSE ---
Shift note: A/Ox2, states name, and is aware of where he is, is able to make needs known, but is refusing food or water, just wants to sleep. Vital signs are Qday, pt notes no chest pain, PRN morphine is needed for brief changes as it is uncomfortable for him, incontinent of stool, which is dark green and soft. Plan is to d/c to home via BLS at 1645 today. Bed low and locked, call light within reach, will continue to treat and monitor.
--- NOTE | 2021-10-12 16:39 | PM.DS.1 ---
History of Present Illness History of Present Illness Date Patient Seen: 10/10/21 Time Patient Seen: 20:38 Chief complaint: hypotensive/sepsis/dark urine Narrative: Per admitting provider: Patient is a 85-year-old male history of bladder cancer with urostomy, prostate cancer, thyroid cancer, coronary artery disease, hypertension, peripheral neuropathy with tibial plateau fracture on 06/27/2021.? He was admitted to the hospital until 07/01/2021 when he was discharged repair of this long-term care facility where he stayed for 100 days.? He was released to home 24 hours ago with home health care set up.? Today family noted that urine was very dark and he was weaker than normal.? Patient was initially awake alert oriented when he first arrived on the floor for admit, and really has no complaints. Upon Admit b/p was hypotensive BP 69/40 for with a map of 58. Levophed was initiated, echo was ordered, and troponins, potassium was 3.3, K rider 40 mEq was ordered. Flagyl for possible proctitis. Tele ICU Dr. Beaver was consulted. Very quickly the patient was on 12 of Levophed, so vasopressin was added in addition to steroids. Patient's decreased level of consciousness prohibiting him from participating in a HPI or ROS. Patient was afebrile, and able to denie any pain or shortness of breath.?Patient's cognitive function deteriorated and was only able to answer he was not in pain but was not orientated. Patient's family was contacted, and came to the patient's bedside. Upon arriving I had an in-depth discussion with family regarding options of continued medical intervention, and further treatment options. The patient's daughter and requested that active medical care be removed and comfort care put in place. Patient was initially admitted for septic shock due to UTI and hypokalemia to the ICU, patient was then change to end of life comfort measures per family's request. Discharge Providers Provider Date of admission: 10/10/21 16:03 Discharge Date: 10/12/21 Primary care physician: Rajeev Tanner MD Consults: 10/11/21 08:56 Consult to Discharge Planning Routine Comment: Consult to Hospice Referral Urgent Comment: Discharge provider: Pardeep Tian MD Summary Hospital Course Discharge Diagnosis: 1. Septic shock 2. UTI 3. Possible NSTEMI 4. CAD 5. HTN 6. Hypothyroidism 7. Questionable GI bleed 8. Bladder cancer with urostomy 9. Prostate cancer 10. Thyroid cancer Hospital Course: Mr. Albarran was admitted to the hospital with weakness and confusion. He was noted to have hyoptension and started on multiple vasopressors and stress dose steroids. Source was suspected urine and possible proctitis. After discussion with family they wanted him have comfort focused care. His medications were adjusted to achieve this. He was not eating or drinking significantly. He was discharged home with hospice to focus on comfort care. Exam Vital Signs (past 8 hours): Oxygen Delivery Method Room Air Oxygen Flow Rate 0 Narrative Exam Narrative: GENERAL:?comfortable, alert CV: regular rate and rhythm PULM: clear bilaterally Objective Labs Result Diagrams: 10/10/21 16:08 10/10/21 12:15 PFS Medical History Bladder cancer Closed right humeral fracture Coronary artery disease Hypertension Hyponatremia Hypothyroid Kidney stones Prostate cancer Thyroid cancer Surgical History H/O colectomy H/O thyroidectomy History of appendectomy History of urostomy S/P hip replacement Family History Father Alcoholism Mother Alcoholism Social History household members: spouse Smoking Status: Former smoker alcohol intake: former substance use type: does not use Discharge Plan Discharge Plan Patient Disposition: Home Provider Discharge Comment: Mr. Albarran was admitted with infection that developed into sepsis. He also had concern for internal bleeding. With discussion with family they wanted to focus on keeping him comfortable. He was discharged with referral to hospice with medications for pain and anxiety. Discharge orders & Medications Prescriptions: New lorazepam [Ativan] 1 mg tablet 1 mg PO TID PRN (Reason: anxiety) Qty: 30 0RF morphine 10 mg/5 mL solution 10 mg PO Q4H PRN (Reason: pain) Qty: 150 0RF Continued levothyroxine 200 mcg Tablet 200 mcg PO 0700 acetaminophen 325 mg Tablet 975 mg PO TID PRN (Reason: pain) Qty: 90 0RF Label Comments: PRN metoprolol succinate 25 mg tablet extended release 24 hr 1 tab PO DAILY Label Comments: AM Discontinued atorvastatin 40 mg tablet 1 tab PO BEDTIME aspirin 81 mg tablet,delayed release (DR/EC) 1 tab PO DAILY Label Comments: he takes every other day docusate sodium 100 mg Tablet 100 mg PO BID Eliquis 5 mg tablet 5 mg PO DAILY Daily Multivitamin 200-100-500 mcg Capsule 1 cap PO DAILY ferrous gluconate 324 mg (38 mg iron) Tablet 324 mg PO DAILY Qty: 30 0RF sodium chloride 1 Gram tablet 1 g PO DAILY calcium carbonate-vitamin D3 [Oyster Shell Calcium-Vit D3] 500 mg(1,250mg) -200 unit Tablet 1 ea PO BIDWM Qty: 60 0RF Follow up/Referrals: Rajeev Tanner MD [Primary Care Provider] - Diet/Activity/Treatments Diet: Regular Discharge Data Primary Care Provider: Rajeev Tanner Quality VTE Deep Vein Thrombosis/Pulmonary Embolism Present on Admission: No
== END 2021-10-12 16:56 | disposition home or self-care (01) | DRG 871 ==
LOC: ED 16:03 → AC 16:04 → ICU 10-11 08:24
PROVIDERS: Nurse Practitioner Family; Admitting Provider Neuromusculoskeletal Medicine, Sports Medicine; Emergency Provider Emergency Medicine; PCP Internal Medicine; Referring Provider Emergency Medicine; Visit Provider Neuromusculoskeletal Medicine, Sports Medicine
DX: A41.9 Sepsis, unspecified organism (principal); R65.21 Severe sepsis with septic shock; I21.4 Non-ST elevation (NSTEMI) myocardial infarction; N39.0 Urinary tract infection, site not specified; K92.2 Gastrointestinal hemorrhage, unspecified; K62.89 Other specified diseases of anus and rectum; E87.6 Hypokalemia; R41.0 Disorientation, unspecified; R40.0 Somnolence; E03.9 Hypothyroidism, unspecified; I10 Essential (primary) hypertension; G62.9 Polyneuropathy, unspecified; Z87.891 Personal history of nicotine dependence; Z79.01 Long term (current) use of anticoagulants; Z20.822 Contact with and (suspected) exposure to COVID-19; Z93.6 Other artificial openings of urinary tract status; Z66 Do not resuscitate; Z51.5 Encounter for palliative care
CPT/HCPCS: 36415; 36430; 36556; 71045; 71275; 74174; 80053; 81001; 82272; 82550; 83605; 83690; 83735; 83880; 84145; 84484; 85014; 85018; 85025; 85610; 85730; 86140; 86850; 86900; 86901; 87040; 87077; 87086; 87186; 87635; 87797; 93005; 93010; 96361; 96365; 96367; 96375; 99285; 99291; 99292; C9803; P9016; C9113; J0696; J1720; J1940; J2270; J7168